=== PATIENT | male | born 1955 | race African-American/Black ===

== ENCOUNTER 2021-06-12 09:31 | Inpatient (IN) | payer MEDICARE, SELFPAY ==
[2021-06-12] VITALS (19 sets, daily range): BP systolic 86–179; BP diastolic 63–99; PULSE 72–101; RESP 12–24; TEMP 36–36.6; O2SAT 74–100; BMI 24.6
--- NOTE | ~2021-06-12 | XR_ITS ---
EXAMINATION: XR abdomen NG/feed tube insert INDICATION: Nasogastric tube placement TECHNIQUE: Portable AP KUB-NG at 1009 hours COMPARISON: None available FINDINGS: The nasogastric tube within the stomach. The bowel gas pattern is nonspecific. The visualiz ed lung bases are clear. Metallic densities are noted in the soft tissues of the left upper extremity . IMPRESSION: 1. Nasogastric tube in the stomach. Reviewed, dictated and finalized at location A. ORT SPECIALIST
--- NOTE | ~2021-06-12 | CT_ITS ---
EXAMINATION: CT brain wo con INDICATION: Headache COMPARISON: None TECHNIQUE: Standard unenhanced head CT. The dose-length product (DLP) was 605.33 mGy-cm. The mA was a djusted according to patient size. Iterative reconstruction technique was employed. FINDINGS: There is no acute intraparenchymal hemorrhage. No evidence of mass lesion. There is an area of hypoattenuation in the midbrain. Also seen are small lacunar infarcts of the bilateral basal gang eitan. There is mild periventricular and subcortical hypodensity probably related to small vessel ische gerard disease. There is mild prominence of the sulci and ventricles related to cerebral atrophy. Intrac ranial calcified cerebral atherosclerosis is noted. There are no extra-axial collections. There is no mass effect or midline shift. The orbits are unremarkable. There is mild mucosal thickening of the p aranasal sinuses. IMPRESSION: 1. Areas of low attenuation in the midbrain and bilateral basal ganglia, consistent with prior infarc tion. 2. Age related findings. Reviewed, dictated and finalized at location A. OVER IMPRESSION: 1. Areas of low attenuation in the midbrain and bilateral basal ganglia, consis tent with prior infarction. 2. Age related findings.
--- NOTE | ~2021-06-12 | CT_ITS ---
EXAMINATION: CT abdomen pelvis wo con DATE: 06/12/2021 10:56 INDICATION: Hypotension, GI bleed TECHNIQUE: Computed tomography (CT) of the abdomen and pelvis was performed without intravenous contr ast. The dose-length product (DLP) was 845.02 mGy-cm. Automated exposure control and iterative recons truction technique were employed. COMPARISON: None FINDINGS: Minimal dependent atelectasis is present in the lung bases. The heart size is normal. The e xamination is limited by absence of intravenous contrast. The nasogastric tube is in the stomach. The liver, spleen, pancreas, and adrenal glands are normal. Stones are present in the nondistended gallb ladder. Cysts of the kidneys measure up to 2.3 cm on the right. The urinary bladder is distended. The re are calcifications of the prostate. The appendix is normal. There is a partially imaged penile imp lant with reservoir in the right pelvis. No pathologically enlarged abdominal or pelvic lymph nodes a re identified. There is no free intraperitoneal gas or evidence of bowel obstruction. There is modera te osteoarthritis of the hips. Mild lumbar spondylosis is noted. IMPRESSION: 1. No CT correlate for the patient's symptoms. 2. Distended urinary bladder. 3. Cholelithiasis without evidence of cholecystitis. Reviewed, dictated and finalized at location A. R LOCKING SUPERVISOR
--- NOTE | ~2021-06-12 | XR_ITS ---
EXAMINATION: XR chest 1V portable DATE: 06/12/2021 15:20 INDICATION: Syncope. Vomiting. TECHNIQUE: A single frontal view of the chest was obtained. COMPARISON: CT abdomen and pelvis 06/12/2021 FINDINGS: There is mild scarring at the lung apices. No pleural effusion or pneumothorax. The heart s ize is normal. The nasogastric tube tip is in the stomach. IMPRESSION: 1. Mild scarring at the lung apices. Reviewed, dictated and finalized at location A. TRAFFIC SUPERVISOR
[2021-06-12] MEDS: SODIUM CHLORIDE 0.9% IV 1,000 ML 999 ML IV CONT ×3 (09:30→10:06)
--- NOTE | 2021-06-12 09:43 | PC.NURSE ---
Pt has 1 L NS infusing - initiated by EMS in route.
[2021-06-12] MEDS: PANTOPRAZOLE SODIUM IV 40 MG VIAL 80 MG IV PUSH (10:05)
[2021-06-12] MEDS: ONDANSETRON INJ 4 MG/2 ML VIAL IV PUSH (10:06)
[2021-06-12 10:07] LABS: Basophils Absolute Auto 0.1 K/mm3 (0.0-0.1); Basophils Percent Auto 0.4 % (0.2-1.2); Eosinophils Absolute Auto 0.1 K/mm3 (0-0.3); Eosinophils Percent Auto 0.4 % (0-4.4); Hematocrit 26.3 % (42.0-52.0); Hemoglobin 7.8 g/dL (14.0-18.0); Immature Granulocyte Absolute 0.08 K/mm3 (0.00-0.031); Immature Granulocyte Percent A 0.5 % (0-0.5); Lymphocytes Absolute Auto 2.39 K/mm3 (0.9-3.2); Lymphocytes Percent Auto 15.6 % (18.3-44.2); Mean Corpuscular HGB Conc 29.7 g/dl (32-36); Mean Corpuscular Hemoglobin 22.2 pg (26-34); Mean Corpuscular Volume 74.9 fl (80-100); Mean Platelet Volume 9.5 fl (7.4-10.4); Monocytes Absolute Auto 1.1 K/mm3 (0.1-0.6); Neutrophils Absolute Auto 11.7 K/mm3 (1.3-6.7); Neutrophils Percent Auto 76.1 % (45.5-73.1); Platelet Count Result 471 k/mm3 (150-375); Red Blood Count 3.51 M/mm3 (4.6-6.20); Red Cell Distribution Width 14.8 % (11.5-14.5); White Blood Count 15.3 K/mm3 (4.5-10.0)
[2021-06-12 10:17] LABS: Ammonia < 9 umol/L (9-30)
[2021-06-12 10:20] LABS: Lactic Acid Reflex 5.1 mmol/L (0.7-2.1)
[2021-06-12 10:21] LABS: Alveolar/Arterial O2 Gradient 19.8 mmHg; Base Excess ABG 18.1 mEq/l (+/-2.0); Fractional Inspired Oxygen 21 %; HCO3 ABG 44.8 mEq/l (22.0-26.0); Oxygen Saturation ABG 92.1 % (95.0-100.0); PCO2 ABG 58.9 mmHg (35.0-45.0); PO2 ABG 59.4 mmHg (80.0-100.0); PO2 FiO2 Ratio Arterial Blood 2.83 %; pH ABG 7.499 (7.350-7.450)
[2021-06-12 10:21] LABS: Prothrombin Time 12.9 Seconds (11.1-14.7)
[2021-06-12 10:22] LABS: Partial Thromboplastin Time 25.2 SECONDS (22.3-36.8)
[2021-06-12 10:22] LABS: Device ROOM AIR; Modified Allen's Test Pass; Site Drawn LEFT BRACHIAL
[2021-06-12 10:30] LABS: Beta-Hydroxybutyrate/Acetoacetate 0.28 mmol/L (0.02-0.27)
[2021-06-12 10:31] LABS: Alanine Aminotransferase 17 U/L (4-50); Albumin Level 4.4 g/dL (3.5-5.1); Alkaline Phosphatase 77 U/L (38-126); Aspartate Amino Transferase 24 U/L (17-59); Bilirubin,Total 0.9 mg/dL (0.2-1.3); Blood Urea Nitrogen 36 mg/dL (9-20); Calcium 9.8 mg/dL (8.4-10.2); Carbon Dioxide > 40 mmol/L (22-30); Chloride 70 mmol/L (98-107); Estimated CRCL calculation 31 ml/min; Estimated Glomerular Filt Rate 35; Glucose 548 mg/dL (65-110); Lipase 128 U/L (23-300); Magnesium 2.3 mg/dL (1.6-2.3); Potassium 2.7 mmol/L (3.4-5.0); Sodium 132 mmol/L (137-145)
[2021-06-12] MEDS: OCTREOTIDE ACETATE 50 MCG/ML VIAL IV PUSH (10:39)
[2021-06-12] MEDS: SODIUM CHLORIDE 0.9% IV 250 ML 30 ML IV CONT (10:39)
[2021-06-12] MEDS: TUBING, BLOOD SET 1 EACH XX (10:40)
--- NOTE | 2021-06-12 10:49 | ED.GIBLEED ---
HPI - GI Bleed General Chief complaint: GI Bleed Stated complaint: SYNCOPAL Time Seen by Provider: 06/12/21 09:38 Source: patient and EMS History of Present Illness HPI Narrative: Patient presents with GI bleed. Patient was was vomiting and altered at home family called EMS. EMS noted coffee-ground emesis and the patient was hypotensive. Related Data Home Medications Medication Instructions Recorded Confirmed aspirin 81 mg PO DAILY 06/12/21 06/12/21 atorvastatin 80 mg PO DAILY 06/12/21 06/12/21 ergocalciferol (vitamin D2) 50,000 unit PO WEEKLY 06/12/21 06/12/21 flash glucose sensor [FreeStyle 06/12/21 06/12/21 Jose J 14 Day Sensor] folic acid 1 mg PO DAILY 06/12/21 06/12/21 gabapentin 200 mg PO TID 06/12/21 06/12/21 insulin glargine 45 unit SUBCUT BID 06/12/21 06/12/21 insulin lispro 10 - 20 unit SUBCUT TIDWM 06/12/21 06/12/21 midodrine 2.5 mg PO TID 06/12/21 06/12/21 pantoprazole 40 mg PO QAM 06/12/21 06/12/21 promethazine 25 mg PO Q8H PRN 06/12/21 06/12/21 venlafaxine 150 mg PO DAILY 06/12/21 06/12/21 Allergies Allergy/AdvReac Type Severity Reaction Status Date / Time metformin Allergy Diarrhea Verified 06/12/21 10:07 pregabalin [From Lyrica] Allergy Swelling Verified 06/12/21 10:07 Review of Systems Review of Systems: ROS unobtainable: Yes unobtainable due to mental status [facility] Past Medical History Medical History (Updated 06/12/21 @ 14:31 by Dean Elias MD) Diabetes HTN (hypertension) Social History Social History (Updated 06/12/21 @ 10:53 by Dean Elias MD) Social History: unable to obtain Smoking status: Current every day smoker Tobacco type: cigarettes Substance use: former Substance use type: does not use Spiritual care concerns: No Exam Narrative: GENERAL: Moderate distress appears ill with active coffee-ground emesis HEAD: Normocephalic, atraumatic. EYES: PERRLA and EOMI. CHEST: Clear to auscultation. No respiratory distress. No wheezes rales or rhonchi HEART: Regular rate and rhythm. No murmur heard. ABDOMEN: Soft, nondistended EXTREMITIES: Normal range of motion. No edema. SKIN: Warm, dry, no rash. NEURO: Patient is alert there is not appear to be any focal deficits PSYCH: Normal mood and affect. Course Reevaluation(s) Reevaluation #1: Patient's clinical status is improving after initiation of blood products and NG. Signs also improving primary concern is for GI bleed as well as DKA. Date: 06/12/21 Time: 10:08 Reevaluation #2: Patient reports feeling improved vital signs also improved. Given lab abnormalities patient will be admitted for further management. Date: 06/12/21 Time: 11:39 Vital Signs Vital signs: Vital Signs Temperature 36.6 C 06/12/21 09:23 Pulse Rate 83 06/12/21 09:23 Respiratory Rate 24 H 06/12/21 09:23 Blood Pressure 86/63 L 06/12/21 09:23 Pulse Oximetry 96 06/12/21 09:23 Temperature 36.2 C L 06/12/21 11:29 Pulse Rate 76 06/12/21 12:02 Respiratory Rate 13 06/12/21 11:32 Blood Pressure 151/88 H 06/12/21 12:02 Pulse Oximetry 74 L 06/12/21 12:02 MDM - GI Bleed MDM Narrative Medical decision making narrative: Initial history and physical as above. Additional history obtained after initial resuscitation and in conversation with family. Patient has remote history of alcohol abuse and history of hepatitis C. Reports frequent admissions to the [facility] healthcare system for GI bleeds. Patient was discharged from [facility] system a few days ago was admitted for GI bleed and was initially doing well. However last night had some nausea and vomiting that look like stomach acid this morning family noted coffee-ground emesis and he appeared to be confused with low blood pressure that is why they called EMS. Due to patient's initial hypotension and coffee-ground emesis 1 unit of uncrossed matched blood was ordered. IVs were obtained and patient was placed on monitors. Patient is given an NG with approximately 1 L of co
--- NOTE | 2021-06-12 13:04 | PC.NURSE ---
This patient, Jonathon A Candi, was admitted to Intensive Care Unit-7. Patient/family oriented to hospital policies and general routines including ID bracelet, bed and alarms, visiting hours, pain management, procedures, bathroom and other care routines, personal items, smoking policy, room service/diet, and visiting hours. Information on how to activate the Rapid Response Team has been discussed. Patient/Family are encouraged to report perceived risks to care and to ask questions if they do not understand what they are told or what they should do.
[2021-06-12 13:05] LABS: Reflex Lactic Acid Yes or No Add Lactic
[2021-06-12 13:21] LABS: Glucose Point of Care 461 mg/dl (65-105)
[2021-06-12] MEDS: SODIUM CHLORIDE 0.9% IV 1,000 ML 125 ML IV CONT ×2 (13:30→21:20)
--- NOTE | 2021-06-12 13:34 | WPDCNINT ---
Assessment and Plan Assessment and plan (1) Sepsis: Code(s): A41.9 - Sepsis, unspecified organism Status: Acute Assessment and Plan: patient presented with hypotension, acute kidney injury, altered mental status, elevated WBC, lactic acidosis, GI bleed - Patient adequately fluid-resuscitated, blood pressures have improved - initial lactic acid was 5.1, repeat lactic acid 1.9. - patient was given 1 dose of ceftriaxone - (2) GI bleed: Qualifiers: GI bleed type/associated pathology: unspecified gastrointestinal hemorrhage type Qualified Code(s): K92.2 - Gastrointestinal hemorrhage, unspecified Code(s): K92.2 - Gastrointestinal hemorrhage, unspecified Status: Acute Assessment and Plan: coffee-ground emesis, according the ER physician once a placed an NG tube patient had approximately 1 L of coffee-ground material drain in the canister. - GI evaluation pending - continue Protonix and octreotide information - patient received 1 unit of packed RBC - unmatched - patient was recently and bowel injury [facility] from 05/29/2021 [facility] 06/01/21 for diabetes, hypotension, GI bleed - repeat H&H every 6 hours and transfuse as needed (3) Hypotension: Qualifiers: Hypotension type: unspecified hypotension type Qualified Code(s): I95.9 - Hypotension, unspecified Code(s): I95.9 - Hypotension, unspecified Status: Acute Assessment and Plan: hypotension - multifactorial, likely related to GI, hypovolemia, dehydration - patient has been adequately fluid-resuscitated, also received 1 unit of unmatched PRBC - blood pressures have been stable - continue to monitor (4) Hyperosmolar hyperglycemic state (HHS): Code(s): E11.00 - Type 2 diabetes mellitus with hyperosmolarity without nonketotic hyperglycemic-hyperosmolar coma (NKHHC); E11.65 - Type 2 diabetes mellitus with hyperglycemia Status: Acute Assessment and Plan: hyperglycemia with no metabolic acidosis, positive beta hydroxybutyrate - patient has not been taking his insulin at home per his - patient has received 3 L of IV fluids, - will give IV insulin and recheck blood sugars, continue high-dose sliding scale insulin Accu-Chek - patient may need to be started on insulin infusion if her blood sugars do not improve (5) Diabetes: Code(s): E11.9 - Type 2 diabetes mellitus without complications Status: Acute Assessment and Plan: patient has insulin-dependent diabetes, - patient may insulin infusion - continue to monitor blood sugars closely (6) Acute kidney injury: Code(s): N17.9 - Acute kidney failure, unspecified Status: Acute Assessment and Plan: acute kidney injury related to hypovolemia anemia, hypotension, sepsis - patient has been adequately fluid-resuscitated, will continue to monitor urine output, obtain urine lytes - creatinine does not improve will consult Nephrology (7) Cirrhosis: Code(s): K74.60 - Unspecified cirrhosis of liver Status: Acute Assessment and Plan: current patient's his doctors keep following his liver enzyme ammonia level was < 9 (8) History of hepatitis C: Code(s): Z86.19 - Personal history of other infectious and parasitic diseases Status: Acute Assessment and Plan: patient has been treated with medications for hepatitis-C, follows GI doctors at [facility] (9) DVT prophylaxis: Code(s): Z29.9 - Encounter for prophylactic measures, unspecified Status: Acute Assessment and Plan: SCDs, no chemoprophylaxis given GI bleed. Additional Plan discussed with and updated with patient's condition and plan of care. She was a good resource for obtaining patient's medical history. did let her know that we will be treating his elevated blood sugars, anemia and GI bleed. She is aware that the GI doctors be seeing him and performing endosc
[2021-06-12 13:55] LABS: Lactic Acid 1.9 mmol/L (0.7-2.1)
[2021-06-12 14:01] LABS: Basophils Percent Auto 0.3 % (0.2-1.2); Hematocrit 26.5 % (42.0-52.0); Hemoglobin 8.1 g/dL (14.0-18.0); Immature Granulocyte Absolute 0.09 K/mm3 (0.00-0.031); Immature Granulocyte Percent A 0.6 % (0-0.5); Lymphocytes Absolute Auto 0.74 K/mm3 (0.9-3.2); Lymphocytes Percent Auto 4.7 % (18.3-44.2); Mean Corpuscular HGB Conc 30.6 g/dl (32-36); Mean Corpuscular Hemoglobin 23.5 pg (26-34); Mean Platelet Volume 9.6 fl (7.4-10.4); Monocytes Absolute Auto 0.7 K/mm3 (0.1-0.6); Monocytes Percent Auto 4.5 % (2.6-8.5); Neutrophils Percent Auto 89.9 % (45.5-73.1); Platelet Count Result 329 k/mm3 (150-375); Red Blood Count 3.44 M/mm3 (4.6-6.20); Red Cell Distribution Width 15.7 % (11.5-14.5); White Blood Count 15.6 K/mm3 (4.5-10.0)
[2021-06-12 14:07] LABS: Creatine Kinase 41 U/L (55-170); Lipase 83 U/L (23-300); Magnesium 2.1 mg/dL (1.6-2.3); Phosphorus 4.1 mg/dL (2.5-4.5)
[2021-06-12 14:12] LABS: Partial Thromboplastin Time 23.2 SECONDS (22.3-36.8); Prothrombin Time 13.2 Seconds (11.1-14.7)
[2021-06-12 14:15] LABS: Hemoglobin A1C 8.1 % (<5.7)
[2021-06-12] MEDS: INSULIN HUMAN REGULAR (*BKC) 100 UNITS/ML IV PUSH (14:39)
--- NOTE | 2021-06-12 15:04 | ECG_ITS ---
Measurements Intervals [place] Rate: 96 P: 16 MT: 197 QRS: -42 QRSD: 94 T: 33 QT: 400 QTc: 507 Interpretive Statements SINUS RHYTHM LEFT AXIS DEVIATION BORDERLINE R WAVE PROGRESSION, ANTERIOR LEADS BORDERLINE ST-T WAVE ABNORMALITY- HIGH LATERAL LEADS BASELINE ARTIFACT- I, II, III, AVR, AVL, AVF, V1-V6 BORDERLINE ECG Electronically Signed On 06-13-2021 8:44:48 MEDICAL GRADE SHOEMAKER by Aric Lee D.O.
--- NOTE | 2021-06-12 15:45 | PM.IMHP ---
H&P: HPI History of Present Illness Date/Time: 06/12/21 15:45 Chief Complaint: Vomiting blood and loss of consciousness. Narrative: This is a 66-year-old male smoker with hypertension, insulin-dependent diabetes, cirrhosis, hepatitis-C, and GERD who presented to the emergency department earlier today via EMS from home for evaluation of vomiting blood and loss of consciousness. The patient is confused and not the greatest historian and as such some of the following is obtained via a review of his electronic medical records as well as discussions with his . The patient was recently hospitalized at [facility] between 05/29/2021 and 06/01/2021 for an upper GI bleed. According to his , upper endoscopy showed evidence of gastritis and esophagitis. His appetite has been poor since discharge with frequent complaints of burning in his upper abdomen and lower chest. This morning the patient tells me that he was having severe abdominal pain that he has a difficult time describing and shortly thereafter he began vomiting what has been described as coffee-ground emesis. It is my understanding that he was also hypotensive at home and lost consciousness for a brief period of time. Blood pressure was approximately 80/60 on arrival to the emergency department and given ongoing hematemesis he was transfused and on matched unit of packed red blood cells and he was aggressively hydrated with improvement in his blood pressures. Significant labs on arrival include a hemoglobin of 7.8, creatinine of 2.3, lactic acid of 5.1, glucose of 548, and a potassium of 2.7. An NG tube was inserted and he has been started on Protonix and octreotide drips. He still has intermittent abdominal pain but is feeling somewhat better. He denies fever, chills, sweats, chest pain, shortness of breath, cold and flu symptoms, dysuria, diarrhea. Review of Systems Review of Systems: Twelve systems were reviewed. He has been vaccinated for COVID. No sick contacts. He has not taken his medication for couple of days because he has not been feeling well. He denies blurry vision, polydipsia, and polyuria. Except as documented, all other systems were reviewed and are negative. [facility] Past Medical History Medical History (Updated 06/12/21 @ 23:43 by Cristina Chong PA-C) Arthritis Benign prostatic hyperplasia Chronic kidney disease Cirrhosis Depression Diabetic peripheral neuropathy Dyslipidemia Gastroesophageal reflux disease Hepatitis C Insulin dependent type 2 diabetes mellitus Tobacco abuse disorder Social History Social History (Updated 06/12/21 @ 14:52 by Cristina Chong PA-C) Social History: Surrogate decision maker: Mahnaz Christopher, spouse. Code status: Full code. Smoking status: Current every day smoker Tobacco type: cigarettes Substance use: former Substance use type: does not use Additional living arrangements comments: The patient lives with his in [place]. Additional occupation/education comments: Retired. Meds Home Medications and Allergies Home Medications Medication Instructions Recorded Confirmed Type aspirin 81 mg PO DAILY 06/12/21 06/12/21 History atorvastatin 80 mg PO DAILY 06/12/21 06/12/21 History ergocalciferol (vitamin D2) 50,000 unit PO WEEKLY 06/12/21 06/12/21 History flash glucose sensor [FreeStyle 06/12/21 06/12/21 History Jose J 14 Day Sensor] folic acid 1 mg PO DAILY 06/12/21 06/12/21 History gabapentin 200 mg PO TID 06/12/21 06/12/21 History insulin glargine 45 unit SUBCUT BID 06/12/21 06/12/21 History insulin lispro 10 - 20 unit SUBCUT TIDWM 06/12/21 06/12/21 History midodrine 2.5 mg PO TID 06/12/21 06/12/21 History pantoprazole 40 mg PO QAM 06/12/21 06/12/21 History promethazine 25 mg PO Q8H PRN 06/12/21 06/12/21 History venlafaxine 150 mg PO DAILY 06/12/21 06/12/21 History Allergies Allergy/AdvReac Type Severity Reaction Status Date / Time metformin Allergy Diarrhea Verified 06/12/21 10:07 pre
[2021-06-12] MEDS: MORPHINE SULFATE (*CRX) 2 MG/ML INJ IV PUSH ×2 (15:58→19:33)
[2021-06-12 16:10] LABS: Hematocrit 25.7 % (42.0-52.0); Hemoglobin 7.9 g/dL (14.0-18.0)
[2021-06-12 16:28] LABS: Blood Urea Nitrogen 36 mg/dL (9-20); Calcium 8.7 mg/dL (8.4-10.2); Carbon Dioxide > 40 mmol/L (22-30); Chloride 81 mmol/L (98-107); Estimated CRCL calculation 36 ml/min; Estimated Glomerular Filt Rate 41; Glucose 384 mg/dL (65-110); Potassium 3.2 mmol/L (3.4-5.0); Sodium 132 mmol/L (137-145)
[2021-06-12 16:53] LABS: Thyroid Stimulating Hormone Reflex 0.089 uIU/mL (0.465-4.68)
[2021-06-12 17:27] LABS: Iron 291 ug/dL (49-181)
[2021-06-12 17:36] LABS: Percent Iron Saturation 88 % (20-50)
[2021-06-12 17:41] LABS: Glucose Point of Care 344 mg/dl (65-105)
[2021-06-12] MEDS: INSULIN ASPART (*BKC) 100 UNITS/ML SUB-Q (17:52)
[2021-06-12 18:03] LABS: Ferritin 9.74 ng/mL (11.1-264)
[2021-06-12 18:35] LABS: Folic Acid 6.3 ng/mL (2.76->20)
[2021-06-12 18:35] LABS: Glucose Point of Care 300 mg/dl (65-105)
[2021-06-12 18:45] LABS: Add Urine Microscopic? YES; Appearance Urine Clear (Clear); Bilirubin Urine Negative (Negative); Blood Urine Negative (Negative); Color Urine Yellow (Yellow); Glucose Urine UA 3+ mg/dL (Negative); Ketones Urine Negative (Negative); Leukocyte Esterase Ur Negative LEU/UL (Negative); Nitrate Urine Negative (Negative); Protein Urine 1+ mg/dL (Negative); Specific Grav Ur 1.015 (1.001-1.035); Urobilinogen Urine Negative mg/dL (<2.0); WBC Urine 0-3 /hpf
[2021-06-12 18:49] LABS: Creatinine Urine 90.3 mg/dL
[2021-06-12 19:06] LABS: Eosinophil Urine None Seen % (None Seen)
[2021-06-12 19:09] LABS: Potassium Urine Random 23.4 meq/L; Sodium Urine Random 50 meq/L
[2021-06-12 23:23] LABS: Hematocrit 24.2 % (42.0-52.0); Hemoglobin 7.6 g/dL (14.0-18.0)
[2021-06-13] VITALS (20 sets, daily range): BP systolic 81–164; BP diastolic 65–94; PULSE 62–96; RESP 14–23; TEMP 36.3–37; O2SAT 90–100; BMI 25.2
[2021-06-13 00:03] LABS: Glucose Point of Care 55 mg/dl (65-105)
[2021-06-13 00:09] LABS: Glucose Point of Care 68 mg/dl (65-105)
[2021-06-13] MEDS: DEXTROSE 50% 25 GM/50 ML SYRINGE IV PUSH (00:11)
--- NOTE | 2021-06-13 00:34 | PC.NURSE ---
0015 accuchek 68. protocol followed and D50 1/2 amp given as ordered. patient remains alert and oriented
[2021-06-13 01:02] LABS: Glucose Point of Care 115 mg/dl (65-105)
[2021-06-13] MEDS: SODIUM CHLORIDE 0.9% IV 1,000 ML 125 ML IV CONT ×3 (05:26→21:51)
[2021-06-13 06:05] LABS: Glucose Point of Care 180 mg/dl (65-105)
[2021-06-13 06:44] LABS: Free T4 Free Thyroxine Reflex 1.27 ng/dL (0.78-2.19)
[2021-06-13 07:35] LABS: Total Triiodothyronine (T3) 1.02 NG/ML (0.97-1.69)
[2021-06-13 07:53] LABS: Basophils Absolute Auto 0.1 K/mm3 (0.0-0.1); Basophils Percent Auto 0.5 % (0.2-1.2); Eosinophils Absolute Auto 0.2 K/mm3 (0-0.3); Hematocrit 25.4 % (42.0-52.0); Hemoglobin 7.6 g/dL (14.0-18.0); Immature Granulocyte Absolute 0.07 K/mm3 (0.00-0.031); Immature Granulocyte Percent A 0.5 % (0-0.5); Lymphocytes Absolute Auto 2.11 K/mm3 (0.9-3.2); Lymphocytes Percent Auto 14.1 % (18.3-44.2); Mean Corpuscular HGB Conc 29.9 g/dl (32-36); Mean Corpuscular Hemoglobin 23.3 pg (26-34); Mean Corpuscular Volume 77.9 fl (80-100); Neutrophils Absolute Auto 11.5 K/mm3 (1.3-6.7); Neutrophils Percent Auto 76.9 % (45.5-73.1); Platelet Count Result 308 k/mm3 (150-375); Red Blood Count 3.26 M/mm3 (4.6-6.20); Red Cell Distribution Width 15.3 % (11.5-14.5)
[2021-06-13 08:01] LABS: Lactic Acid Reflex 2.9 mmol/L (0.7-2.1)
[2021-06-13 08:06] LABS: Partial Thromboplastin Time 28.1 SECONDS (22.3-36.8)
[2021-06-13 08:14] LABS: Alanine Aminotransferase 14 U/L (4-50); Albumin Level 3.7 g/dL (3.5-5.1); Alkaline Phosphatase 68 U/L (38-126); Aspartate Amino Transferase 22 U/L (17-59); Bilirubin,Total 1.5 mg/dL (0.2-1.3); Blood Urea Nitrogen 27 mg/dL (9-20); Calcium 8.5 mg/dL (8.4-10.2); Carbon Dioxide > 40 mmol/L (22-30); Chloride 84 mmol/L (98-107); Estimated CRCL calculation 34 ml/min; Estimated Glomerular Filt Rate 38; Glucose 237 mg/dL (65-110); Magnesium 2.2 mg/dL (1.6-2.3); Phosphorus 3.2 mg/dL (2.5-4.5); Potassium 2.8 mmol/L (3.4-5.0); Sodium 135 mmol/L (137-145)
[2021-06-13] MEDS: MORPHINE SULFATE (*CRX) 2 MG/ML INJ IV PUSH (08:14)
[2021-06-13] MEDS: POTASSIUM CHLORIDE 20 MEQ PACKET (FOR LIQUID) 40 MEQ FEED TUBE (08:58)
--- NOTE | 2021-06-13 09:15 | WPDINTPN ---
Progress Note: A&P Assessment and Plan (1) Sepsis: Code(s): A41.9 - Sepsis, unspecified organism Status: Acute Assessment and Plan: patient presented with hypotension, acute kidney injury, altered mental status, elevated WBC, lactic acidosis, GI bleed - Patient adequately fluid-resuscitated, blood pressures have improved - lactic acid level has improved -blood culture sent -blood pressure is adequate Continue Rocephin (2) GI bleed: Qualifiers: GI bleed type/associated pathology: unspecified gastrointestinal hemorrhage type Qualified Code(s): K92.2 - Gastrointestinal hemorrhage, unspecified Code(s): K92.2 - Gastrointestinal hemorrhage, unspecified Status: Acute Assessment and Plan: coffee-ground emesis, according the ER physician once a placed an NG tube patient had approximately 1 L of coffee-ground material drain in the canister. - GI consulted and plan for EGD today - continue Protonix and octreotide infusion until the - patient received 1 unit of packed RBC - unmatched -serial hemoglobin monitoring -NPO for now (3) Hypotension: Qualifiers: Hypotension type: unspecified hypotension type Qualified Code(s): I95.9 - Hypotension, unspecified Code(s): I95.9 - Hypotension, unspecified Status: Acute Assessment and Plan: hypotension - multifactorial, likely related to GI, hypovolemia, dehydration - patient has been adequately fluid-resuscitated, also received 1 unit of unmatched PRBC - blood pressures have improved - continue to monitor (4) Hyperosmolar hyperglycemic state (HHS): Code(s): E11.00 - Type 2 diabetes mellitus with hyperosmolarity without nonketotic hyperglycemic-hyperosmolar coma (NKHHC); E11.65 - Type 2 diabetes mellitus with hyperglycemia Status: Acute Assessment and Plan: hyperglycemia with no metabolic acidosis, positive beta hydroxybutyrate - patient has not been taking his insulin at home per his - patient was given IV fluid bolus and IV insulin -blood sugars have improved now and uncontrolled drain (5) Diabetes: Code(s): E11.9 - Type 2 diabetes mellitus without complications Status: Acute Assessment and Plan: patient has insulin-dependent diabetes, -on subcutaneous insulin - continue to monitor blood sugars closely (6) Acute kidney injury: Code(s): N17.9 - Acute kidney failure, unspecified Status: Acute Assessment and Plan: acute kidney injury related to hypovolemia anemia, hypotension, sepsis -baseline creatinine unknown - patient has been adequately fluid-resuscitated, will continue to monitor urine output, obtain urine lytes - creatinine does not improve will consult Nephrology (7) Cirrhosis: Code(s): K74.60 - Unspecified cirrhosis of liver Status: Acute Assessment and Plan: current patient's his doctors keep following his liver enzyme ammonia level was < 9 (8) History of hepatitis C: Code(s): Z86.19 - Personal history of other infectious and parasitic diseases Status: Acute Assessment and Plan: patient has been treated with medications for hepatitis-C, follows GI doctors at [facility] (9) DVT prophylaxis: Code(s): Z29.9 - Encounter for prophylactic measures, unspecified Status: Acute Assessment and Plan: SCDs, no chemoprophylaxis given GI bleed. (10) Electrolyte abnormality: Code(s): E87.8 - Other disorders of electrolyte and fluid balance, not elsewhere classified Status: Acute Assessment and Plan: Replace low potassium Additional Plan Code status: Full code Critical care time spent: 30 minutes This dictation may have been done utilizing a voice recognition system. Attempts have been made to correct errors. However, there may be uncorrected grammatical, spelling, and recognition errors present. Due to a high probability of clinically
[2021-06-13 09:53] LABS: Glucose Point of Care 304 mg/dl (65-105)
[2021-06-13] MEDS: INSULIN ASPART (*BKC) 100 UNITS/ML SUB-Q ×3 (09:58→17:13)
[2021-06-13 10:40] LABS: Hematocrit 24.6 % (42.0-52.0); Hemoglobin 7.5 g/dL (14.0-18.0)
[2021-06-13 10:49] LABS: Reflex Lactic Acid Yes or No Add Lactic
--- NOTE | 2021-06-13 10:59 | WPDANESEPPF ---
Anes - Initial Pre Proc Eval Procedure: Operation Date: 06/13/21 14:00 Proposed Procedures p Esophagogastroduodenoscopy - Raul Jordan MD Date/Time: 06/13/21 10:59 Surgeon: Danielle Sierra MD Pre Op Diagnosis: GI bleed Patient Data Age: 66 Gender: M Height: 1.83 m Weight: 84.3 kg Last Vital Signs Temp 36.9 C 06/13/21 08:00 Pulse 87 06/13/21 10:00 Resp 18 06/13/21 10:00 BP 147/82 H 06/13/21 10:00 Pulse Ox 93 06/13/21 10:00 Allergies Allergy/AdvReac Type Severity Reaction Status Date / Time metformin Allergy Diarrhea Verified 06/12/21 10:07 pregabalin [From Lyrica] Allergy Swelling Verified 06/12/21 10:07 Home Medications Medication Instructions Recorded Confirmed Type aspirin 81 mg PO DAILY 06/12/21 06/12/21 History atorvastatin 80 mg PO DAILY 06/12/21 06/12/21 History ergocalciferol (vitamin D2) 50,000 unit PO WEEKLY 06/12/21 06/12/21 History flash glucose sensor [FreeStyle 06/12/21 06/12/21 History Jose J 14 Day Sensor] folic acid 1 mg PO DAILY 06/12/21 06/12/21 History gabapentin 200 mg PO TID 06/12/21 06/12/21 History insulin glargine 45 unit SUBCUT BID 06/12/21 06/12/21 History insulin lispro 10 - 20 unit SUBCUT TIDWM 06/12/21 06/12/21 History midodrine 2.5 mg PO TID 06/12/21 06/12/21 History pantoprazole 40 mg PO QAM 06/12/21 06/12/21 History promethazine 25 mg PO Q8H PRN 06/12/21 06/12/21 History venlafaxine 150 mg PO DAILY 06/12/21 06/12/21 History Laboratory Tests 06/12/21 06/12/21 06/12/21 10:01 13:19 13:37 WBC RBC Hgb Hct MCV MCH MCHC RDW Plt Count MPV Immature Gran % (Auto) Neut % (Auto) Lymph % (Auto) [place] % (Auto) Eos % (Auto) Baso % (Auto) Lymph # (Auto) [place] # (Auto) Eos # (Auto) Baso # (Auto) Abs Immat Gran (auto) Absolute Neuts (auto) Absolute Nucleated RBC Nucleated RBC % PT INR APTT Sodium Potassium Chloride Carbon Dioxide Anion Gap BUN Creatinine Estim Creat Clear Calc Estimated GFR Glucose POC Capillary Glucose 461 mg/dl H mg/dl (65-105) Hemoglobin A1c 8.1 % H % (<5.7) Lactic Acid Calcium Phosphorus Magnesium Iron TIBC % Saturation Ferritin Total Bilirubin AST ALT Alkaline Phosphatase Total Creatine Kinase Total Protein Albumin Lipase Vitamin B12 Folate TSH (Reflex) Free T4 Total T3 Random Cortisol Urine Color Urine Appearance Urine pH Ur Specific [place] Urine Protein Urine Glucose (UA) Urine Ketones Ur Blood (Man) Urine Nitrate Urine Bilirubin Urine Urobilinogen Leukocyte Esterase Rfl Urine WBC Urine Eosinophils Ur Random Creatinine Ur Random Sodium Ur Random Potassium Ur Random Chloride U Random Chloride/Creat Urine Creatinine Crossmatch See Detail 06/12/21 06/12/21 06/12/21 13:37 13:37 13:37 WBC 15.6 K/mm3 H K/mm3 (4.5-10.0) RBC 3.44 M/mm3 L M/mm3 (4.6-6.20) Hgb 8.1 g/dL L g/dL (14.0-18.0) Hct 26.5 % L % (42.0-52.0) MCV 77.0 fl L fl (80-100) MCH 23.5 pg L D pg
--- NOTE | 2021-06-13 11:20 | WPDGICN ---
Assessment and Plan Assessment and plan (1) Hematemesis: Code(s): K92.0 - Hematemesis Status: Acute Assessment and Plan: will assess with egd- ddx varices, esophagitis, ulcer, phg, etc continue with octreotide and protonix drip for now will try to get recent scope reports (2) UGIB (upper gastrointestinal bleed): Code(s): K92.2 - Gastrointestinal hemorrhage, unspecified Status: Acute Assessment and Plan: no more bleeding by ngt continue monitoring and egd now already on ppi (3) Acute on chronic kidney failure: Code(s): N17.9 - Acute kidney failure, unspecified; N18.9 - Chronic kidney disease, unspecified Status: Acute Assessment and Plan: on fluids, monitor renal function (4) Cirrhosis: Code(s): K74.60 - Unspecified cirrhosis of liver Status: Acute Assessment and Plan: HCV was treated and eradicated, he is seeing radiography technician at [facility] (5) Hyperosmolar hyperglycemic state (HHS): Code(s): E11.00 - Type 2 diabetes mellitus with hyperosmolarity without nonketotic hyperglycemic-hyperosmolar coma (NKHHC); E11.65 - Type 2 diabetes mellitus with hyperglycemia Status: Acute Assessment and Plan: he came with confusion, syncope, hypotension and abnormal glucose with metabolic decompensation has not been using insulin as instructed by icu team (6) Dehydration: Code(s): E86.0 - Dehydration Status: Acute (7) Hypotension: Qualifiers: Hypotension type: unspecified hypotension type Qualified Code(s): I95.9 - Hypotension, unspecified Code(s): I95.9 - Hypotension, unspecified Status: Acute Assessment and Plan: treated and now BP improved (8) Acute kidney injury: Code(s): N17.9 - Acute kidney failure, unspecified Status: Acute (9) History of hepatitis C: Code(s): Z86.19 - Personal history of other infectious and parasitic diseases Status: Acute Assessment and Plan: treated successfully will get HCV RNA to confirm eradication denies alcohol abuse (used to drink but years ago per ) GI Consult Note Consult date/time: 06/13/21 11:20 Reason for consult: GIB, hematemesis HPI: Jonathon A Candi is a 66 year old male with history of hypertension, smoker, insulin-dependent diabetes, cirrhosis, hepatitis-C treated about 2 years ago at [facility] and successfully eradicated per family (also seeing hepatology once a year with imaging of liver for benign nodule in liver ). He was recently hospitalized at [facility] between 05/29/2021 and 06/01/2021 for GI bleed, is at bedside- she says that EGD showed evidence of gastritis and esophagitis, also had colonoscopy (no records). After discharge he has been doing poorly, with burning in his upper abdomen and lower chest, decrease appetite and not compliant with his insulin. He came to ER yesterday [facility] with new onset of hematemesis with coffee-ground emesis, also had syncope and was found to be hypotensive in the ER, NGT was placed and removed ~ 1 liter of gastric content. He received 3 L IV fluids with one unit of unmatched packed RBC, with improvement in his blood pressures. hemoglobin of 7.8, WBC count of 15.3, platelets of 471. INR 1.0. sodium of 132, potassium of 2.7, CO2 > 40, BUN 46, creatinine 2.3. Blood sugar of 548, lactic acid of 5.1. ammonia < 9. Elevated beta hydroxybutyrate. He also had CT head areas of low attenuation in the mid brain in bilateral basal ganglia consistent with prior infarction, age related changes. CT abdomen and pelvis reviewed, no CT findings to correlate for patient's symptoms, distended urinary bladder, cholelithiasis without evidence of cholecystitis. He denies drinking alcohol. BP better now, no more coffee ground by NGT. Review of Systems Constitutional: Constitutional: Reports weakness Eyes: Eyes: Reports no additional eye complaints ENT: Reports Normal hearing present Cardiovascular:
--- NOTE | 2021-06-13 11:29 | PM.IMPN ---
Progress Note: A&P Assessment and Plan (1) Sepsis: Code(s): A41.9 - Sepsis, unspecified organism Status: Acute Assessment and Plan: Patient presented with hypotension, renal insufficiency, altered mental status, elevated WBC, and lactic acidosis. Probably related to the HoTN from the GI bleed. Patient adequately fluid-resuscitated and his overall condition has improved. lactic was 5.1 before dropping to 1.9; higher today at 2.9 but clinically appears improved. BP stable now. BCx NGT. Rocephin continued. Follow up on EGD results. Discussed with [place] kura [place] ma[place]. (2) GI bleed: Qualifiers: GI bleed type/associated pathology: unspecified gastrointestinal hemorrhage type Qualified Code(s): K92.2 - Gastrointestinal hemorrhage, unspecified Code(s): K92.2 - Gastrointestinal hemorrhage, unspecified Status: Acute Assessment and Plan: Patient with coffee-ground emesis and he had approximately 1 L of coffee-ground material removed. Appears clear now. GI consulted and plan for EGD today. Continue Protonix and octreotide infusion until the results of the EGD are known. Patient received 1 unit of unmatched packed RBC. Hgb 7.8 on admission but not much changed since admission and currently at 7.5. Follow closely. (3) Hypotension: Qualifiers: Hypotension type: unspecified hypotension type Qualified Code(s): I95.9 - Hypotension, unspecified Code(s): I95.9 - Hypotension, unspecified Status: Acute Assessment and Plan: Patient was HoTN on admission felt to be multifactorial related to GI bleed with hypovolemia and dehydration. Patient has been adequately fluid-resuscitated and received 1 unit of unmatched PRBC. BP better. Follow closely. (4) Diabetes: Code(s): E11.9 - Type 2 diabetes mellitus without complications Status: Acute Assessment and Plan: The patient's blood glucose was reviewed on 06/13 Glucose remains poorly well controlled with glucose 55 overnight but now 304. Patient takes Lantus twice a day and mealtime insulin at home but has been noncompliant.Continue AccuCheks covering with sliding scale. Hypoglycemia protocol available as needed. Continue to monitor blood sugars closely (5) Hyperosmolar hyperglycemic state (HHS): Code(s): E11.00 - Type 2 diabetes mellitus with hyperosmolarity without nonketotic hyperglycemic-hyperosmolar coma (NKHHC); E11.65 - Type 2 diabetes mellitus with hyperglycemia Status: Acute Assessment and Plan: Patient with hyperglycemia with no metabolic acidosis and slightly positive beta hydroxybutyrate. Consider HHS. Gigi has been noncompliant at home with his insulin regiment. Mental status better. As above (6) Acute kidney injury: Code(s): N17.9 - Acute kidney failure, unspecified Status: Acute Assessment and Plan: Creatinine 2.3 on admission. Unclear if he has acute, acute on chronic or chronic kidney disease. Creatinine has not improved significantly despite adequate fluid resuscitation. Acute kidney injury could be related to hypovolemia, anemia and hypotension from the GI bleed. Continue to monitor urine output. Will request old records to determine baseline. (7) Cirrhosis: Code(s): K74.60 - Unspecified cirrhosis of liver Status: Acute Assessment and Plan: Patient with cirrhosis listed as a past medical history although CT of the abdomen done here shows a normal appearing liver. No ascites noted. Ammonia level was less than 9. PT and PTT are normal. LFTs normal except for a mildly elevated bilirubin today at 1.5. Unclear if patient has cirrhosis with these findings. (8) History of hepatitis C: Code(s): Z86.19 - Personal history of other infectious and parasitic diseases Status: Acute Assessment and Plan: Patient follows with GI doctors at [facility]. Patient states he has been treated for hepatitis-C in t
[2021-06-13 12:27] LABS: Glucose Point of Care 295 mg/dl (65-105)
[2021-06-13] MEDS: LACTATED RINGERS 1,000 ML 150 ML IV CONT (12:46)
--- NOTE | 2021-06-13 12:53 | SUR.PREOP ---
POC glucose performed prior to pt being transported from ICU. Result of 295 at 1224.
[2021-06-13 12:58] LABS: Ovalocytes 1+ (NORMAL); Platelet Estimate Adequate (Adequate)
[2021-06-13 12:59] LABS: Schistocytes 1+ (NORMAL)
--- NOTE | 2021-06-13 13:34 | SUR.OPER ---
NGT REMOVED BY DR PISANO
[2021-06-13 14:12] LABS: Glucose Point of Care 202 mg/dl (65-105)
[2021-06-13 14:53] LABS: Lactic Acid 2.9 mmol/L (0.7-2.1)
[2021-06-13] MEDS: ERGOCALCIFEROL 50,000 UNIT CAPSULE 50000 UNITS PO (15:18)
[2021-06-13] MEDS: GABAPENTIN 100 MG CAPSULE 200 MG PO ×2 (15:19→21:51)
[2021-06-13] MEDS: VENLAFAXINE HCL XR 75 MG CAP.ER.24H 150 MG PO (15:19)
[2021-06-13] MEDS: MIDODRINE HCL 2.5 MG TABLET PO (15:19)
[2021-06-13] MEDS: FOLIC ACID 1 MG TABLET PO (15:19)
[2021-06-13] MEDS: ATORVASTATIN 40 MG TABLET 80 MG PO (15:19)
[2021-06-13] MEDS: SUCRALFATE SUSP 100 MG/ML 10 ML UDC 1000 MG PO ×2 (15:20→21:51)
[2021-06-13] MEDS: ONDANSETRON INJ 4 MG/2 ML VIAL IV PUSH (16:30)
[2021-06-13 16:51] LABS: Hematocrit 23.4 % (42.0-52.0); Hemoglobin 7.1 g/dL (14.0-18.0)
[2021-06-13 17:16] LABS: Glucose Point of Care 177 mg/dl (65-105)
[2021-06-13 21:46] LABS: Glucose Point of Care 120 mg/dl (65-105)
[2021-06-13] MEDS: PANTOPRAZOLE SODIUM IV 40 MG VIAL IV PUSH (21:54)
[2021-06-13 21:59] LABS: Hematocrit 22.6 % (42.0-52.0)
[2021-06-13 22:08] LABS: Hemoglobin 6.9 g/dL (14.0-18.0)
[2021-06-14] VITALS (17 sets, daily range): BP systolic 126–172; BP diastolic 83–97; PULSE 60–82; RESP 11–18; TEMP 36.1–37; O2SAT 95–100
[2021-06-14 04:51] LABS: Hematocrit 23.1 % (42.0-52.0); Mean Corpuscular HGB Conc 29.9 g/dl (32-36); Mean Corpuscular Hemoglobin 23.2 pg (26-34); Mean Corpuscular Volume 77.5 fl (80-100); Mean Platelet Volume 9.3 fl (7.4-10.4); Platelet Count Result 270 k/mm3 (150-375); Red Blood Count 2.98 M/mm3 (4.6-6.20); Red Cell Distribution Width 15.7 % (11.5-14.5); White Blood Count 13.5 K/mm3 (4.5-10.0)
[2021-06-14 05:02] LABS: Hemoglobin 6.9 g/dL (14.0-18.0)
[2021-06-14 05:04] LABS: Alanine Aminotransferase 12 U/L (4-50); Albumin Level 3.7 g/dL (3.5-5.1); Alkaline Phosphatase 65 U/L (38-126); Anion Gap 9 mmol/L (8-16); Aspartate Amino Transferase 23 U/L (17-59); Blood Urea Nitrogen 21 mg/dL (9-20); Calcium 8.1 mg/dL (8.4-10.2); Carbon Dioxide 33 mmol/L (22-30); Chloride 90 mmol/L (98-107); Estimated CRCL calculation 44 ml/min; Estimated Glomerular Filt Rate 53; Glucose 195 mg/dL (65-110); Magnesium 1.8 mg/dL (1.6-2.3); Phosphorus 2.2 mg/dL (2.5-4.5); Potassium 3.2 mmol/L (3.4-5.0); Sodium 132 mmol/L (137-145)
[2021-06-14 05:37] LABS: Lactic Acid Reflex 0.8 mmol/L (0.7-2.1)
[2021-06-14] MEDS: SODIUM CHLORIDE 0.9% IV 1,000 ML 125 ML IV CONT (05:56)
[2021-06-14] MEDS: SUCRALFATE SUSP 100 MG/ML 10 ML UDC 1000 MG PO ×4 (05:57→21:09)
[2021-06-14 06:14] LABS: Glucose Point of Care 226 mg/dl (65-105)
[2021-06-14] MEDS: INSULIN ASPART (*BKC) 100 UNITS/ML SUB-Q ×2 (06:16→09:07)
[2021-06-14 08:35] LABS: Glucose Point of Care 235 mg/dl (65-105)
[2021-06-14] MEDS: POTASSIUM/PHOSPHORUS/SODIUM 1.5 GM PACKET 1 PACKET PO (09:10)
[2021-06-14] MEDS: VENLAFAXINE HCL XR 75 MG CAP.ER.24H 150 MG PO (09:11)
[2021-06-14] MEDS: FOLIC ACID 1 MG TABLET PO (09:12)
[2021-06-14] MEDS: PANTOPRAZOLE SODIUM IV 40 MG VIAL IV PUSH ×2 (09:12→21:09)
[2021-06-14] MEDS: GABAPENTIN 100 MG CAPSULE 200 MG PO ×3 (09:12→17:47)
[2021-06-14] MEDS: INSULIN GLARGINE (*BKC) 100 UNITS/ML 15 UNITS SUB-Q (09:16)
[2021-06-14] MEDS: POTASSIUM CHLORIDE 20 MEQ TABLET 40 MEQ PO (09:20)
[2021-06-14] MEDS: SODIUM CHLORIDE 0.9% IV 250 ML 30 ML IV CONT (09:26)
[2021-06-14] MEDS: ATORVASTATIN 40 MG TABLET 80 MG PO (09:35)
--- NOTE | 2021-06-14 10:12 | PM.IMPN ---
Progress Note: A&P Assessment and Plan (1) Sepsis: Code(s): A41.9 - Sepsis, unspecified organism Status: Acute Assessment and Plan: Patient presented with hypotension, renal insufficiency, altered mental status, elevated WBC, and lactic acidosis. Probably related to the HoTN from the GI bleed. Patient adequately fluid-resuscitated and his overall condition has improved. lactic was 5.1 before dropping to 0.8 today. BP stable now. BCx NGTD. Rocephin continued. PT/OT. Out of bed. (2) GI bleed: Qualifiers: GI bleed type/associated pathology: unspecified gastrointestinal hemorrhage type Qualified Code(s): K92.2 - Gastrointestinal hemorrhage, unspecified Code(s): K92.2 - Gastrointestinal hemorrhage, unspecified Status: Acute Assessment and Plan: Patient with coffee-ground emesis and he had approximately 1 L of coffee-ground material removed. Treated with Protonix and octreotide infusion. Patient received 1 unit of unmatched packed RBC in the ED. GI consulted and EGD performed 06/13 showing reflux esophagitis Grade D but no varices and mild gastritis. Hgb 7.8 on admission but dropped to 6.9 this morning. Transfusion ordered. Follow closely. (3) Hypotension: Qualifiers: Hypotension type: unspecified hypotension type Qualified Code(s): I95.9 - Hypotension, unspecified Code(s): I95.9 - Hypotension, unspecified Status: Acute Assessment and Plan: Patient was HoTN on admission felt to be multifactorial related to GI bleed with hypovolemia and dehydration. Patient has been adequately fluid-resuscitated and received 1 unit of unmatched PRBC. BP better. Follow closely. Decrease IV fluid rate. (4) Anemia: Qualifiers: Anemia type: unspecified type Qualified Code(s): D64.9 - Anemia, unspecified Code(s): D64.9 - Anemia, unspecified Status: Acute Assessment and Plan: As above. Anemia probably acute from acute blood loss and possibly a chronic componenet. Follow and transfuse as needed (5) Diabetes: Code(s): E11.9 - Type 2 diabetes mellitus without complications Status: Acute Assessment and Plan: The patient's blood glucose was reviewed on 06/14 Glucose more stable from 120-230. Patient takes Lantus twice a day and mealtime insulin at home but has been noncompliant. Continue AccuCheks covering with sliding scale. Hypoglycemia protocol available as needed. Continue to monitor blood sugars closely. Will advance his insulin regiment since his diet has been adjusted to diabetic diet. (6) Hyperosmolar hyperglycemic state (HHS): Code(s): E11.00 - Type 2 diabetes mellitus with hyperosmolarity without nonketotic hyperglycemic-hyperosmolar coma (NKHHC); E11.65 - Type 2 diabetes mellitus with hyperglycemia Status: Acute Assessment and Plan: Patient with hyperglycemia with no metabolic acidosis and slightly positive beta hydroxybutyrate. Consider HHS. Patient has been poorly compliant at home with his insulin regiment. Mental status better. His states patient refuses insulin when he starts to feel ill. (7) Acute kidney injury: Code(s): N17.9 - Acute kidney failure, unspecified Status: Acute Assessment and Plan: Creatinine 2.3 on admission. Unclear if he has acute, acute on chronic or chronic kidney disease. Creatinine has improved so there seems to be at least an acute process. Acute kidney injury could be related to hypovolemia, anemia and hypotension from the GI bleed. Continue to monitor urine output and renal function. (8) Cirrhosis: Code(s): K74.60 - Unspecified cirrhosis of liver Status: Acute Assessment and Plan: Patient with cirrhosis listed as a past medical history although CT of the abdomen done here shows a normal appearing liver. No ascites noted. Ammonia level was less than 9. PT and PTT are normal. LFTs normal today. Unclear if
--- NOTE | 2021-06-14 11:28 | PCNFU ---
Nutrition Follow-Up Complete: Altered GI functions as related to GI Bleed as evidenced by NPO Goal: Meet estimated nutritional needs Patient is progressing towards goal. We will continue current goal. Pt current nutrition is Full liquids with Glucerna shakes BID. Last recorded weight is 85.1 kg, down from 84.3 kg on admit. Bowel Motility:No BM reported. Labs Reviewed:PO4 2.2, Glu 195, Cr 1.6, Na 132, Hct 23.1,Hgb 6.9 Meds Noted:NS, Carafate, Effexor, Zofran, Protonix, Folic Acid, Lipitor, Neurontin, NovoLog, Rocephin, Lipitor. Skin:WNL Additional Notes: Nutrition follow up. Patient has advanced to a full liquid diet. He did eat cream of wheat for breakfast. Diet supplements orders changed per MD to Glucerna Shakes vs Ensure compact due to patient being a diabetic. Recommend advancing to diabetic diet as tolerated per MD orders. Monitoring: Will monitor every 5 days.
[2021-06-14 11:32] LABS: Glucose Point of Care 181 mg/dl (65-105)
--- NOTE | 2021-06-14 12:52 | WPDANESPN ---
Anes - Prog Note Post-Op Date/Time: 06/14/21 12:52 Cardiovascular status: normal Respiratory status: normal Airway patency: baseline Mental status: baseline Post-Op hydration status: normal Vital Signs: Last Vital Signs Temp 36.8 C 06/14/21 11:27 Pulse 64 06/14/21 11:27 Resp 14 06/14/21 11:27 BP 159/90 H 06/14/21 11:27 Pulse Ox 100 06/14/21 11:36 Pain Score (VAS): 0 I/O: Intake & Output 06/13/21 06/14/21 06/14/21 23:59 07:59 15:59 Intake Total 1240 1320 410 Output Total 550 550 Balance 690 770 410 Laboratory Tests 06/14/21 04:27 06/14/21 04:27 06/12/21 06/13/21 06/13/21 10:01 07:23 10:34 WBC 15.0 H RBC 3.26 L Hgb 7.6 L 7.5 L Hct 25.4 L MCV 77.9 L MCH 23.3 L MCHC 29.9 L RDW 15.3 H Plt Count 308 MPV 9.0 Immature Gran % (Auto) 0.5 Neut % (Auto) 76.9 H Lymph % (Auto) 14.1 L [place] % (Auto) 7.0 Eos % (Auto) 1.0 Baso % (Auto) 0.5 Lymph # (Auto) 2.11 [place] # (Auto) 1.0 H Eos # (Auto) 0.2 Baso # (Auto) 0.1 Abs Immat Gran (auto) 0.07 H Absolute Neuts (auto) 11.5 H Absolute Nucleated RBC 0.0 Nucleated RBC % 0.0 Platelet Estimate Adequate Ovalocytes 1+ Schistocytes 1+ Sodium Potassium Chloride Carbon Dioxide Anion Gap BUN Creatinine Estim Creat Clear Calc Estimated GFR Glucose POC Capillary Glucose Lactic Acid Calcium Phosphorus Magnesium Total Bilirubin AST ALT Alkaline Phosphatase Total Protein Albumin HCV RNA (PCR) IUs/ml HCV RNA PCR log IUs/ml Blood Type O Negative Antibody Screen Negative Crossmatch See Detail 06/13/21 06/13/21 06/13/21 14:09 14:35 16:40 WBC RBC Hgb 7.1 L Hct 23.4 L MCV MCH MCHC RDW Plt Count MPV Immature Gran % (Auto) Neut % (Auto) Lymph % (Auto) [place] % (Auto) Eos % (Auto) Baso % (Auto) Lymph # (Auto) [place] # (Auto) Eos # (Auto) Baso # (Auto) Abs Immat Gran (auto) Absolute Neuts (auto) Absolute Nucleated RBC Nucleated RBC % Platelet Estimate Ovalocytes Schistocytes Sodium Potassium Chloride Carbon Dioxide Anion Gap BUN Creatinine Estim Creat Clear Calc Estimated GFR Glucose POC Capillary Glucose 202 H Lactic Acid 2.9 H Calcium Phosphorus Magnesium Total Bilirubin AST ALT Alkaline Phosphatase Total Protein Albumin HCV RNA (PCR) IUs/ml HCV RNA PCR log IUs/ml Blood Type Antibody Screen Crossmatch 06/13/21 06/13/21 06/13/21 17:12 21:43 21:50 WBC RBC Hgb 6.9 L* Hct 22.6 L MCV MCH MCHC RDW Plt Count MPV Immature Gran % (Auto) Neut % (Auto) Lymph % (Auto) [place] % (Auto) Eos % (Auto) Baso % (Auto) Lymph # (Auto) [place] # (Auto) Eos # (Auto) Baso # (Auto) Abs Immat Gran (auto) Absolute Neuts (auto) Absolute Nucleated RBC Nucleated RBC % Platelet Estimate Ovalocytes Schistocytes Sodium Potassium Chloride Carbon Dioxide Anion Gap BUN Creatinine Estim Creat Clear Calc Estimated GFR Glucose POC Capillary Glucose 177 H 120 H Lactic Acid Calcium Phosphorus Magnesium Total Bilirubin AST ALT Alkaline Phosphatase Total Protein Albumin HCV RNA (PCR) IUs/ml HCV RNA PCR log IUs/ml Blood Type Antibody Screen Crossmatch 06/14/21 06/14/21 06/14/21 04:27 04:27 04:27 WBC 13.5 H RBC 2.98 L Hgb 6.9 L* Hct 23.1 L MCV 77.5 L MCH 23.2 L MCHC 29.9 L RDW 15.7 H Plt Count 270 MPV 9.3 Immature Gran % (Auto) Neut % (Auto) Lymph % (Auto) [place] % (Auto) Eos % (Auto) Baso % (Auto) Lymph # (Auto) [place] # (Auto) Eos # (Auto) Baso # (Auto) Abs Immat Gran (auto)
--- NOTE | 2021-06-14 13:30 | WPDGIPROGNO ---
Progress Note: A&P Assessment and Plan (1) UGIB (upper gastrointestinal bleed): Code(s): K92.2 - Gastrointestinal hemorrhage, unspecified Status: Acute Assessment and Plan: no more episodes, due to severe erosive esophagitis (2) Erosive esophagitis: Code(s): K22.10 - Ulcer of esophagus without bleeding Status: Acute Assessment and Plan: cause of GIB, severe esophagitis, no varices continue with iv protonix bid advance diet as tolerated consider egd in 3 months to assess healing (3) Acute on chronic blood loss anemia: Code(s): D62 - Acute posthemorrhagic anemia Status: Acute Assessment and Plan: hb 6.9 and getting another unit of prbc ppi (4) Hematemesis: Code(s): K92.0 - Hematemesis Status: Acute (5) Acute on chronic kidney failure: Code(s): N17.9 - Acute kidney failure, unspecified; N18.9 - Chronic kidney disease, unspecified Status: Acute Assessment and Plan: renal function slowly improving (6) Dehydration: Code(s): E86.0 - Dehydration Status: Acute (7) Cirrhosis: Code(s): K74.60 - Unspecified cirrhosis of liver Status: Acute Assessment and Plan: per history, treated for HCV in the past follow-up with coat joiner as outpatient (8) Uncontrolled diabetes mellitus: Code(s): E11.65 - Type 2 diabetes mellitus with hyperglycemia Status: Acute Assessment and Plan: by primary, glucose reading improving (9) History of hepatitis C: Code(s): Z86.19 - Personal history of other infectious and parasitic diseases Status: Acute Assessment and Plan: treated in the past he is establish with coat joiner at [facility] pending HCV RNA to confirm eradication Subjective Date/time seen: 06/14/21 13:30 Interval history: egd yesterday showed severe erosive esophagitis as cause of presentation. No more report of bleeding and tolerated diet. Review of Systems Review of Systems: All systems reviewed & are unremarkable except as noted in HPI and below Exam Const: General: comfortable and no acute distress HENMT: General nose exam: Normal nares present Eyes: General: appearance normal, both eyes and all related structures Neck: Neck: supple Resp: Auscultation: clear to auscultation bilaterally GI: GI Palp: Yes Soft to palpation and No Guarding due to palpation present (GI) Auscultation: normal bowel sounds Skin: General skin exam: no rashes or lesions noted Neuro: Speech: normal speech Extrem: General: normal to inspection Psych: Mental Status: mental status grossly normal Objective Data Vital Signs Vital Signs: Vital Signs - 24 hr 06/13/21 13:41 06/13/21 13:51 06/13/21 14:01 Temperature Pulse Rate 78 86 76 Respiratory Rate 18 16 18 Blood Pressure 81/65 L 96/78 L 116/80 Pulse Oximetry 100 98 100 06/13/21 15:08 06/13/21 16:00 06/13/21 17:57 Temperature Pulse Rate 81 80 81 Respiratory Rate 23 H 18 Blood Pressure 164/94 H Pulse Oximetry 98 93 06/13/21 20:00 06/13/21 22:00 06/13/21 23:46 Temperature 98.1 F Pulse Rate 77 70 77 Respiratory Rate 18 Blood Pressure 150/82 H Pulse Oximetry 98 06/14/21 00:00 06/14/21 02:00 06/14/21 03:53 Temperature 97.9 F Pulse Rate 75 77 79 Respiratory Rate 18 Blood Pressure 160/86 H Pulse Oximetry 95 06/14/21 04:00 06/14/21 08:00 06/14/21 09:13 Temperature 98.2 F 96.9 F L Pulse Rate 82 70 Respiratory Rate 16 12 Blood Pressure 166/92 H 154/85 H Pulse Oximetry 96 97 99 06/14/21 10:00 06/14/21 11:10 06/14/21 11:27 Temperature 98.1 F 98.3 F Pulse Rate 67 65 64 Respiratory Rate 11 L 14 Blood Pressure 154/92 H 159/90 H Pulse Oximetry 100 100 06/14/21 11:36 06/14/21 12:00 06/14/21 12:27 Temperature 98.6 F 98.6 F Pulse Rate 62 64 Respiratory Rate 13 12 Blood Pressure 140/89 148/83 H Pulse Oximetry 100 98 98 06/14/21 13:25 Temperature 98.4 F
[2021-06-14 14:47] LABS: Hematocrit 27.2 % (42.0-52.0); Hemoglobin 8.5 g/dL (14.0-18.0)
[2021-06-14] MEDS: MAGNESIUM SULF 2 GM/WATER 50ML 2 GM/50 ML BAG IVPB (16:01)
[2021-06-14 17:52] LABS: Glucose Point of Care 109 mg/dl (65-105)
[2021-06-14 21:04] LABS: Glucose Point of Care 179 mg/dl (65-105)
[2021-06-14] MEDS: INSULIN GLARGINE (*BKC) 100 UNITS/ML 20 UNITS SUB-Q (21:09)
[2021-06-14 21:54] LABS: Hematocrit 26.5 % (42.0-52.0); Hemoglobin 8.3 g/dL (14.0-18.0)
[2021-06-15] VITALS: BP 167/88; PULSE 62; PULSE 64; RESP 14; TEMP 36.8; O2SAT 97
[2021-06-15 03:29] VITALS: BP 160/94; PULSE 62; RESP 16; TEMP 36.7; O2SAT 100
[2021-06-15 04:00] VITALS: PULSE 64
[2021-06-15 05:47] LABS: Hematocrit 28.7 % (42.0-52.0); Hemoglobin 8.9 g/dL (14.0-18.0); Mean Corpuscular Hemoglobin 24.3 pg (26-34); Mean Corpuscular Volume 78.2 fl (80-100); Mean Platelet Volume 10.4 fl (7.4-10.4); Platelet Count Result 246 k/mm3 (150-375); Red Blood Count 3.67 M/mm3 (4.6-6.20); Red Cell Distribution Width 16.2 % (11.5-14.5); White Blood Count 10.4 K/mm3 (4.5-10.0)
[2021-06-15 06:06] LABS: Alanine Aminotransferase 14 U/L (4-50); Alkaline Phosphatase 64 U/L (38-126); Anion Gap 10 mmol/L (8-16); Aspartate Amino Transferase 26 U/L (17-59); Bilirubin,Total 1.6 mg/dL (0.2-1.3); Blood Urea Nitrogen 17 mg/dL (9-20); Calcium 8.2 mg/dL (8.4-10.2); Carbon Dioxide 28 mmol/L (22-30); Chloride 93 mmol/L (98-107); Estimated CRCL calculation 51 ml/min; Estimated Glomerular Filt Rate > 60; Glucose 162 mg/dL (65-110); Magnesium 1.9 mg/dL (1.6-2.3); Phosphorus 1.8 mg/dL (2.5-4.5); Potassium 3.4 mmol/L (3.4-5.0); Sodium 131 mmol/L (137-145)
[2021-06-15] MEDS: SUCRALFATE SUSP 100 MG/ML 10 ML UDC 1000 MG PO ×2 (06:07→12:50)
[2021-06-15 06:10] LABS: Glucose Point of Care 164 mg/dl (65-105)
--- NOTE | 2021-06-15 06:12 | WPDCDIQUERY2 ---
CDI Query Clarification Request -Sepsis has been documented - Patient presented with hypotension, renal insufficiency, altered mental status, elevated WBC, and lactic acidosis. Probably related to the HoTN from the GI bleed has been documented -No infection has been identified Since no infection/suspected infection has been identified, please clarify if sepsis has been ruled in or ruled out. <Elvira Jaeger RN - Last Filed: 06/15/21 09:03>
[2021-06-15 08:00] VITALS: BP 165/91; PULSE 62; PULSE 63; RESP 16; TEMP 36.9; O2SAT 99
[2021-06-15] MEDS: INSULIN GLARGINE (*BKC) 100 UNITS/ML 20 UNITS SUB-Q (08:00)
[2021-06-15] MEDS: INSULIN ASPART (*BKC) 100 UNITS/ML 8 UNITS SUB-Q ×2 (08:02→12:53)
[2021-06-15] MEDS: PANTOPRAZOLE SODIUM IV 40 MG VIAL IV PUSH (08:04)
[2021-06-15] MEDS: VENLAFAXINE HCL XR 75 MG CAP.ER.24H 150 MG PO (08:04)
[2021-06-15] MEDS: FOLIC ACID 1 MG TABLET PO (08:04)
[2021-06-15] MEDS: GABAPENTIN 100 MG CAPSULE 200 MG PO ×2 (08:04→12:50)
[2021-06-15] MEDS: ATORVASTATIN 40 MG TABLET 80 MG PO (08:05)
[2021-06-15 08:27] LABS: Glucose Point of Care 228 mg/dl (65-105)
[2021-06-15] MEDS: POTASSIUM CHLORIDE 20 MEQ TABLET 40 MEQ PO (09:51)
[2021-06-15] MEDS: POTASSIUM/PHOSPHORUS/SODIUM 1.5 GM PACKET 1 PACKET PO (09:52)
[2021-06-15 12:00] VITALS: BP 131/83; PULSE 63; PULSE 69; RESP 16; O2SAT 98
[2021-06-15 12:54] LABS: Glucose Point of Care 190 mg/dl (65-105)
--- NOTE | 2021-06-15 14:56 | PM.DS ---
DS: Admitting Diagnosis Discharge Date 06/15/21 Admitting Diagnosis Hematemesis and loss of consciousness. DS: Discharge Diagnosis Discharge Diagnosis (1) SIRS (systemic inflammatory response syndrome): Code(s): R65.10 - Systemic inflammatory response syndrome (SIRS) of non-infectious origin without acute organ dysfunction Status: Acute Assessment and Plan: Patient presented with hypotension, renal insufficiency, altered mental status, elevated WBC, and lactic acidosis. Probably related to the HoTN from the GI bleed. Patient adequately fluid-resuscitated and his overall condition has improved. lactic was 5.1 before dropping to 0.8 today. BP stable now. BCx NGTD. Treated with Rocephin but no evidence of infectious process. Suspect patient had SIRS related to the GI bleed and not sepsis. (2) GI bleed: Qualifiers: GI bleed type/associated pathology: unspecified gastrointestinal hemorrhage type Qualified Code(s): K92.2 - Gastrointestinal hemorrhage, unspecified Code(s): K92.2 - Gastrointestinal hemorrhage, unspecified Status: Acute Assessment and Plan: Patient with coffee-ground emesis and he had approximately 1 L of coffee-ground material removed. Treated with Protonix and octreotide infusion. Patient received 1 unit of unmatched packed RBC in the ED. GI consulted and EGD performed 06/13 showing reflux esophagitis Grade D but no varices and mild gastritis. Hgb 7.8 on admission but dropped to 6.9 requiring a 2nd transfusion. Hemoglobin has since remained stable. Carafate added (3) Hypotension: Qualifiers: Hypotension type: unspecified hypotension type Qualified Code(s): I95.9 - Hypotension, unspecified Code(s): I95.9 - Hypotension, unspecified Status: Acute Assessment and Plan: Patient was HoTN on admission felt to be multifactorial related to GI bleed with hypovolemia and dehydration. Patient has been adequately fluid-resuscitated and received transfusion. BP became stable. (4) Anemia: Qualifiers: Anemia type: unspecified type Qualified Code(s): D64.9 - Anemia, unspecified Code(s): D64.9 - Anemia, unspecified Status: Acute Assessment and Plan: As above. Anemia probably acute from acute blood loss and possibly a chronic component. (5) Diabetes: Code(s): E11.9 - Type 2 diabetes mellitus without complications Status: Acute Assessment and Plan: A1c 8.1. The patient's blood glucose was monitor closely. Patient takes Lantus twice a day and mealtime insulin at home but has been noncompliant. He was monitored with AccuCheks covering with sliding scale. Glucose remains stable. He was maintained on a diabetic diet. (6) Hyperosmolar hyperglycemic state (HHS): Code(s): E11.00 - Type 2 diabetes mellitus with hyperosmolarity without nonketotic hyperglycemic-hyperosmolar coma (NKHHC); E11.65 - Type 2 diabetes mellitus with hyperglycemia Status: Acute Assessment and Plan: Patient with hyperglycemia with no metabolic acidosis and slightly positive beta hydroxybutyrate. Consider HHS. Patient has been poorly compliant at home with his insulin regiment. Mental status back to baseline per family. His states patient refuses insulin when he starts to feel ill. He was encouraged about the benefits of remaining compliant with his treatment (7) Acute kidney injury: Code(s): N17.9 - Acute kidney failure, unspecified Status: Acute Assessment and Plan: Creatinine 2.3 on admission. Unclear if he has acute or acute on chronic. Acute kidney injury related to hypovolemia, anemia and hypotension from the GI bleed. Creatinine improved to 1.4. (8) Cirrhosis: Code(s): K74.60 - Unspecified cirrhosis of liver Status: Acute Assessment and Plan: Patient with cirrhosis listed as a past medical history although CT of the abdomen done here shows a no
--- NOTE | 2021-06-15 15:33 | WPDGIPROGNO ---
Progress Note: A&P Assessment and Plan (1) UGIB (upper gastrointestinal bleed): Code(s): K92.2 - Gastrointestinal hemorrhage, unspecified Status: Acute Assessment and Plan: no more episodes, due to severe erosive esophagitis hb stable will go home with protonix bid egd in 3 months to assess for healing (2) Erosive esophagitis: Code(s): K22.10 - Ulcer of esophagus without bleeding Status: Acute Assessment and Plan: cause of gib doing well (3) Acute on chronic blood loss anemia: Code(s): D62 - Acute posthemorrhagic anemia Status: Acute Assessment and Plan: hb stable after blood transfusion (4) Hematemesis: Code(s): K92.0 - Hematemesis Status: Acute Assessment and Plan: resolved (5) Acute on chronic kidney failure: Code(s): N17.9 - Acute kidney failure, unspecified; N18.9 - Chronic kidney disease, unspecified Status: Acute Assessment and Plan: renal function slowly improving (6) Dehydration: Code(s): E86.0 - Dehydration Status: Acute Assessment and Plan: resolved (7) Cirrhosis: Code(s): K74.60 - Unspecified cirrhosis of liver Status: Acute Assessment and Plan: per history, treated for HCV in the past 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 Doing fairly well and would like to go home. Review of Systems Review of Systems: All systems reviewed & are unremarkable except as noted in HPI and below Exam Const: General: comfortable and no acute distress HENMT: General nose exam: Normal nares present Eyes: General: appearance normal, both eyes and all related structures Neck: Neck: supple Resp: Auscultation: clear to auscultation bilaterally GI: GI Palp: Yes Soft to palpation and No Guarding due to palpation present (GI) Auscultation: normal bowel sounds Skin: General skin exam: no rashes or lesions noted Neuro: Speech: normal speech Extrem: General: normal to inspection Psych: Mental Status: mental status grossly normal Objective Data Vital Signs Vital Signs: Vital Signs - 24 hr 06/14/21 16:00 06/14/21 17:30 06/14/21 20:00 Temperature 98.2 F 98 F Pulse Rate 71 66 Respiratory Rate 16 Blood Pressure 172/97 H 145/95 H 149/88 H Pulse Oximetry 99 97 06/15/21 00:00 06/15/21 03:29 06/15/21 04:00 Temperature 98.2 F 98.1 F Pulse Rate 64 62 64 Respiratory Rate 14 16 Blood Pressure 167/88 H 160/94 H Pulse Oximetry 97 100 06/15/21 08:00 06/15/21 12:00 Temperature 98.4 F Pulse Rate 62 69 Respiratory Rate 16 16 Blood Pressure 165/91 H 131/83 Pulse Oximetry 99 98 Intake/Output Intake/Output: Intake & Output 06/12/21 06/13/21 06/14/21 06/15/21 23:59 23:59 23:59 23:59 Intake Total 4900 4590 2740 840 Output Total 7038 937 4237 1225 Balance 3400 3640 915 -385 Meds/Results Medications: Active Medications Generic Name Dose Route Start Last Admin Trade Name Freq PRN Reason Stop Dose Admin Atorvastatin Calcium 80 mg 06/13/21 15:00 06/15/21 08:05 Atorvastatin 40 Mg Tablet PO 80 mg DAILY JOHANNE Administration Dextrose 12.5 gm 06/12/21 17:28 06/13/21 00:11 Dextrose 50% 25 Gm/50 Ml Syringe IV PUSH 12.5 gm PRN PRN Administration Hypoglycemia Protocol Ergocalciferol 50,000 unit 06/13/21 16:00 06/13/21 15:18 Ergocalciferol 50,000 Unit Capsule PO 07/20/21 15:59 50,000 unit WEEKLY JOHANNE A
[2021-06-16 15:53] LABS: Chloride Rand Ur <20 mmol/L (32-290); Creatinine Random Urine 25 mg/dL (20-320)
[2021-06-16 18:15] LABS: Hepatitis C RNA, Quant PCR <15 IU/mL
--- NOTE | 2021-06-20 12:59 | PC.NURSE ---
Hep C Viral RNa- WNL at <15.
== END 2021-06-15 16:03 | disposition home or self-care (01) | DRG 380 ==
LOC: ANHED 11:40 → ANHICU 12:17
PROVIDERS: Internal Medicine; Internal Medicine Gastroenterology; Physician Assistant; Admitting Provider Family Medicine; Emergency Provider Emergency Medicine; Visit Provider Internal Medicine
PROC: 0DJ08ZZ Inspection of Upper Intestinal Tract, Via Natural or Artificial Opening Endoscopic (ICD-10-PCS; CPT 43235; principal; 2021-06-13 14:00)
DX: K22.11 Ulcer of esophagus with bleeding (principal); E11.00 Type 2 diabetes mellitus with hyperosmolarity without nonketotic hyperglycemic-hyperosmolar coma (NKHHC); N17.9 Acute kidney failure, unspecified; R65.10 Systemic inflammatory response syndrome (SIRS) of non-infectious origin without acute organ dysfunction; D62 Acute posthemorrhagic anemia; K21.01 Gastro-esophageal reflux disease with esophagitis, with bleeding; K29.70 Gastritis, unspecified, without bleeding; K44.9 Diaphragmatic hernia without obstruction or gangrene; I95.9 Hypotension, unspecified; E11.65 Type 2 diabetes mellitus with hyperglycemia; K74.60 Unspecified cirrhosis of liver; E86.0 Dehydration; E87.6 Hypokalemia; F17.210 Nicotine dependence, cigarettes, uncomplicated; N40.0 Benign prostatic hyperplasia without lower urinary tract symptoms; E11.42 Type 2 diabetes mellitus with diabetic polyneuropathy; E78.5 Hyperlipidemia, unspecified; E11.22 Type 2 diabetes mellitus with diabetic chronic kidney disease; I12.9 Hypertensive chronic kidney disease with stage 1 through stage 4 chronic kidney disease, or unspecified chronic kidney disease; N18.9 Chronic kidney disease, unspecified; Z79.82 Long term (current) use of aspirin; Z79.4 Long term (current) use of insulin; Z86.19 Personal history of other infectious and parasitic diseases
CPT/HCPCS: 36415; 36430; 36600; 70450; 71045; 74176; 80048; 80053; 81001; 82010; 82140; 82436; 82533; 82550; 82570; 82607; 82728; 82746; 82805; 82948; 83036; 83540; 83550; 83605; 83690; 83735; 84100; 84133; 84300; 84439; 84443; 84480; 85014; 85018; 85025; 85027; 85610; 85730; 85999; 86850; 86900; 86901; 86920; 87040; 87522; 93005; 96365; 96366; 96367; 96368; 96375; 96376; 97162; 97165; 99285; A9270; C9113; G0378; J0696; J1815; J2001; J2060; J2270; J2354; J2405; J2704; J3475; J3480; J7030; J7040; J7050; J7060; J7120; P9016

== ENCOUNTER 2021-06-28 09:23 | Outpatient (CLI) | payer MEDICARE, SELFPAY ==
[2021-06-28 09:57] LABS: Albumin Level 4.3 g/dL (3.5-5.1); Anion Gap 9 mmol/L (8-16); Blood Urea Nitrogen 9 mg/dL (9-20); Calcium 9.1 mg/dL (8.4-10.2); Carbon Dioxide 27 mmol/L (22-30); Chloride 101 mmol/L (98-107); Estimated Glomerular Filt Rate > 60; Glucose 159 mg/dL (65-110); Potassium 3.5 mmol/L (3.4-5.0); Sodium 137 mmol/L (137-145)
== END 2021-06-28 09:24 | disposition home or self-care (01) ==
PROVIDERS: Visit Provider Internal Medicine
DX: E87.8 Other disorders of electrolyte and fluid balance, not elsewhere classified (principal)
CPT/HCPCS: 36415; 80069

== ENCOUNTER 2021-10-04 22:51 | Observation (INO) | payer MEDICARE, SELFPAY ==
--- NOTE | ~2021-10-04 | CT_ITS ---
EXAMINATION: CT abdomen pelvis w con DATE: 10/05/2021 00:45 INDICATION: Low abdominal pain. Hematemesis. TECHNIQUE: Computed tomography (CT) of the abdomen and pelvis was performed with 100 mL Omnipaque 350 intravenous contrast. Automated exposure control and iterative reconstruction technique were employe d. The dose-length product was 890.31 mGy-cm. COMPARISON: CT abdomen and pelvis 06/12/2021 FINDINGS: The visualized portions of the lung bases demonstrate mild atelectasis. No pleural effusion . The heart size is normal. No pericardial effusion. There is a moderate-sized sliding hiatal hernia. The liver is normal. There are gallstones in the gallbladder, which is normal in size. The spleen, p ancreas, and adrenal glands are normal. There are cysts in the kidneys measuring up to 2.9 cm on the right. There is cortical thinning of the kidneys. A penile prosthesis is noted. The prostate is mildl y enlarged. There are no dilated loops of bowel. The appendix is normal. There are no pathologically enlarged lymph nodes. There is no free intraperitoneal fluid. There is mild lumbar spondylosis. IMPRESSION: 1. Moderate-sized sliding hiatal hernia. Reviewed, dictated and finalized at location A. CALIBRATOR
--- NOTE | ~2021-10-04 | XR_ITS ---
EXAMINATION: XR chest 1V portable DATE: 10/04/2021 23:57 INDICATION: Cough TECHNIQUE: frontal view of the chest was obtained. COMPARISON: Chest radiograph dated 06/12/2021 FINDINGS: Unchanged mild elevation of the left hemidiaphragm. No focal airspace opacities, pulmonary edema, ple ural effusion or pneumothorax. The cardiomediastinal silhouette is normal. Degenerative skeletal hoang ges at the bilateral shoulders. IMPRESSION: 1. Chronic mild elevation of left hemidiaphragm. No acute cardiopulmonary disease. Reviewed, dictated and finalized at location A. [employer] IMPRESSION: 1. Chronic mild elevation of left hemidiaphragm. No acute cardiopulmonary disea se.
[2021-10-04 22:55] VITALS: BP 176/101; PULSE 88; RESP 20; O2SAT 100
[2021-10-04 23:05] VITALS: PULSE 86
[2021-10-04 23:06] VITALS: BP 160/101; PULSE 86; RESP 13; O2SAT 100
[2021-10-04 23:15] VITALS: PULSE 80; RESP 16
--- NOTE | 2021-10-04 23:23 | PC.NURSE ---
Patient refused ortho BP right now because he cannot lay down right now due to stomach pain.
[2021-10-04 23:24] LABS: Basophils Absolute Auto 0.1 K/mm3 (0.0-0.1); Basophils Percent Auto 0.3 % (0.2-1.2); Eosinophils Percent Auto 0.2 % (0-4.4); Hematocrit 33.9 % (42.0-52.0); Hemoglobin 9.8 g/dL (14.0-18.0); Immature Granulocyte Absolute 0.06 K/mm3 (0.00-0.031); Immature Granulocyte Percent A 0.3 % (0-0.5); Lymphocytes Absolute Auto 2.58 K/mm3 (0.9-3.2); Lymphocytes Percent Auto 14.9 % (18.3-44.2); Mean Corpuscular HGB Conc 28.9 g/dl (32-36); Mean Corpuscular Hemoglobin 22.3 pg (26-34); Mean Corpuscular Volume 77.2 fl (80-100); Mean Platelet Volume 10.1 fl (7.4-10.4); Monocytes Absolute Auto 1.2 K/mm3 (0.1-0.6); Monocytes Percent Auto 6.9 % (2.6-8.5); Neutrophils Absolute Auto 13.4 K/mm3 (1.3-6.7); Neutrophils Percent Auto 77.4 % (45.5-73.1); Platelet Count Result 316 k/mm3 (150-375); Red Blood Count 4.39 M/mm3 (4.6-6.20); Red Cell Distribution Width 16.1 % (11.5-14.5); White Blood Count 17.3 K/mm3 (4.5-10.0)
[2021-10-04 23:30] VITALS: BP 176/93; PULSE 80; PULSE 82; RESP 14; O2SAT 98
[2021-10-04 23:35] LABS: INR 1.1; Prothrombin Time 13.4 Seconds (11.1-14.7)
[2021-10-04 23:36] LABS: Partial Thromboplastin Time 31.9 SECONDS (22.3-36.8)
[2021-10-04 23:45] LABS: Alanine Aminotransferase 16 U/L (4-50); Alkaline Phosphatase 68 U/L (38-126); Anion Gap 13 mmol/L (8-16); Aspartate Amino Transferase 50 U/L (17-59); Bilirubin,Total 1.9 mg/dL (0.2-1.3); Blood Urea Nitrogen 31 mg/dL (9-20); Calcium 9.5 mg/dL (8.4-10.2); Carbon Dioxide 35 mmol/L (22-30); Chloride 89 mmol/L (98-107); Estimated Glomerular Filt Rate 46; Glucose 397 mg/dL (65-110); Potassium 3.1 mmol/L (3.4-5.0); Sodium 137 mmol/L (137-145)
[2021-10-04] MEDS: INSULIN HUMAN REGULAR (*BKC) 100 UNITS/ML 8 UNITS SUB-Q (23:58)
[2021-10-05] VITALS (32 sets, daily range): BP systolic 134–195; BP diastolic 76–114; PULSE 63–98; RESP 11–24; TEMP 36.3–36.5; O2SAT 92–100; BMI 29.0
[2021-10-05] MEDS: SODIUM CHLORIDE 0.9% IV 1,000 ML 999 ML IV CONT
--- NOTE | 2021-10-05 | ECG_ITS ---
Measurements Intervals [place] Rate: 78 P: 20 MT: 196 QRS: -47 QRSD: 104 T: 75 QT: 334 QTc: 382 Interpretive Statements SINUS RHYTHM WITH SINUS ARRHYTHMIA LEFT ANTERIOR FASCICULAR BLOCK [QRS AXIS <= -45, QR IN I, RS IN II] CANNOT RULE OUT SEPTAL MYOCARDIAL INFARCTION , PROBABLY OLD [40+ ms Q WAVE IN V1/V2] BORDERLINE ECG COMPARED TO ECG 06/12/2021 17:34:18 LEFT ANTERIOR FASCICULAR BLOCK NOW PRESENT POSSIBLE MYOCARDIAL INFARCT FINDING NOW PRESENT Electronically Signed On 10-05-2021 13:14:53 COSMETICIAN APPRENTICE by Hank Garcia M.D.
[2021-10-05] MEDS: PANTOPRAZOLE SODIUM IV 40 MG VIAL 80 MG IV PUSH (00:09)
[2021-10-05] MEDS: ONDANSETRON INJ 4 MG/2 ML VIAL IV PUSH ×2 (00:10→20:58)
[2021-10-05 00:12] LABS: Lipase 57 U/L (23-300)
--- NOTE | 2021-10-05 00:38 | PC.NURSE ---
Patient at CT scan
[2021-10-05 00:52] LABS: Alveolar/Arterial O2 Gradient 30.6 mmHg; Base Excess ABG 7.1 mEq/l (+/-2.0); Carboxyhemoglobin 0.7 % THb (0-2.0); Fractional Inspired Oxygen 21 %; HCO3 ABG 31.9 mEq/l (22.0-26.0); Methemoglobin ABG 0.3 %THb (0-1.5); Oxygen Content ABG 12.2 %vol (16.0-22.0); Oxyhemoglobin 89.3 % THb (90.0-100.0); PCO2 ABG 46.6 mmHg (35.0-45.0); PO2 ABG 63.3 mmHg (80.0-100.0); PO2 FiO2 Ratio Arterial Blood 3.01 %; Reduced Hemoglobin 9.7 %THb (0-5.0); Total Hemoglobin 9.7 g/dL (12.0-18.0); pH ABG 7.453 (7.350-7.450)
[2021-10-05 00:53] LABS: Device ROOM AIR; Modified Allen's Test Pass; Site Drawn LEFT RADIAL
--- NOTE | 2021-10-05 01:05 | ED.ABDPAIN ---
HPI - Abdominal Pain General Chief Complaint: Abdominal Pain Stated Complaint: bloody emesis Time Seen by Provider: 10/04/21 23:12 Source: patient, family (), RN notes reviewed and old records reviewed Mode of arrival: ambulatory Limitations: no limitations History of Present Illness HPI narrative: This is a 66 year old male with history of esophagitis, gastritis who presents for evaluation of hematemesis. Patient's states patient started having nausea and vomiting on Sunday. He developed emesis with coffee ground emesis on Sunday and she reports he started vomiting more dark blood. Patient started taking carafate and compazine so his emesis has decreased. She reports he is still having some coffee ground emesis. He is also having diffuse burning abdominal pain. His last bowel movement was today and he reports it is brown in color. He denies chest pain, fever or shortness of breath. Patient was hospitalized a few months ago for GI bleed. Related Data Home Medications Medication Instructions Recorded Confirmed FreeStyle Jose J 14 Day Sensor 06/12/21 10/05/21 aspirin 81 mg PO DAILY 06/12/21 10/05/21 atorvastatin 80 mg PO DAILY 06/12/21 10/05/21 ergocalciferol (vitamin D2) 50,000 unit PO WEEKLY 06/12/21 10/05/21 folic acid 1 mg PO DAILY 06/12/21 10/05/21 gabapentin 200 mg PO TID 06/12/21 10/05/21 promethazine 25 mg PO Q8H PRN 06/12/21 10/05/21 venlafaxine 150 mg PO DAILY 06/12/21 10/05/21 Allergies Allergy/AdvReac Type Severity Reaction Status Date / Time metformin Allergy Diarrhea Verified 07/21/21 14:06 pregabalin [From Lyrica] Allergy Swelling Verified 07/21/21 14:06 Review of Systems Review of Systems: All systems reviewed & are unremarkable except as noted in HPI and below PMFSH Past Medical History Medical History Acute on chronic blood loss anemia Arthritis Benign prostatic hyperplasia Chronic kidney disease Cirrhosis Depression Diabetic peripheral neuropathy Dyslipidemia Erosive esophagitis Gastroesophageal reflux disease Hematemesis Hepatitis C Insulin dependent type 2 diabetes mellitus Tobacco abuse disorder UGIB (upper gastrointestinal bleed) Uncontrolled diabetes mellitus Social History Social History Social History: Surrogate decision maker: Mahnaz Christopher, spouse. Code status: Full code. Smoking packs per day: 1 Smoking cigarettes per day: 20.0 Years smoked: 40 Smoking pack-years: 40.00 Smoking status: Current every day smoker Tobacco type: cigarettes Second hand tobacco smoke exposure: Yes Additional smoking assessment comments: pt's spouse says pt smokes between 10 cigarettes and a pack daily Alcohol intake: never Substance use: never Substance use type: does not use Additional living arrangements comments: The patient lives with his in [place]. Additional occupation/education comments: Retired. Spiritual care concerns: No Exam Const: General: alert and ill appearing Eyes: EOM: EOMs intact bilaterally Resp: Effort & Inspection: normal respiratory effort and no retractions Auscultation: clear to auscultation bilaterally Cardio: Rate: regular rate Rhythm: regular rhythm Heart sounds: no murmurs GI: Inspection: distended GI Palp: Yes Soft to palpation, No Tenderness to palpation present (GI), No Guarding due to palpation present (GI) and No Rigid due to palpation Other: heme negative brown stool Back/Spine/Pelvis: Back: no CVA tenderness Skin: General skin exam: normal color Rashes: no rashes Neuro: General: patient oriented x3, moves all extremities and CN's II-XI intact bilaterally Psych: Mental Status: mental status grossly normal Affect: normal affect Course Reevaluation(s) Reevaluation #1: Patient states he feels better. I discussed plan to admit for observation for serial
[2021-10-05 03:11] LABS: Hematocrit 30.7 % (42.0-52.0); Hemoglobin 9.2 g/dL (14.0-18.0)
[2021-10-05 03:50] LABS: Glucose Point of Care 270 mg/dl (65-105)
--- NOTE | 2021-10-05 03:57 | ADMGEN ---
This patient, Jonathon Thurston Candi, was admitted to [facility] Surg Room 306-02. Patient/family oriented to hospital policies and general routines including ID bracelet, bed and alarms, visiting hours, pain management, procedures, bathroom and other care routines, personal items, smoking policy, room service/diet, and visiting hours. Information on how to activate the Rapid Response Team has been discussed. Patient/Family are encouraged to report perceived risks to care and to ask questions if they do not understand what they are told or what they should do.
--- NOTE | 2021-10-05 04:07 | PC.NURSE ---
10/05/21 1588 per pt's request spouse contacted to complete admission questions.
[2021-10-05 08:00] LABS: Glucose Point of Care 237 mg/dl (65-105)
[2021-10-05] MEDS: SODIUM CHLORIDE 0.9% IV 1,000 ML 125 ML IV CONT (08:08)
[2021-10-05] MEDS: KCL 20 MEQ/SW 100 ML 100 ML 50 MEQ IVPB (08:08)
[2021-10-05] MEDS: INSULIN ASPART (*BKC) 100 UNITS/ML SUB-Q ×2 (08:09→16:31)
[2021-10-05 08:32] LABS: Hematocrit 29.6 % (42.0-52.0); Hemoglobin 8.8 g/dL (14.0-18.0)
--- NOTE | 2021-10-05 09:12 | WPDANESEPPF ---
Anes - Initial Pre Proc Eval Procedure: Operation Date: 10/05/21 12:30 Proposed Procedures p Esophagogastroduodenoscopy - Raul Jordan MD Date/Time: 10/05/21 09:12 Surgeon: Sherin Maxwell PA-C Pre Op Diagnosis: Upper Gi bleedin, anemia, dehydration Patient Data Age: 66 Gender: M Height: 1.83 m Weight: 97.1 kg Last Vital Signs Temp 36.5 C 10/05/21 03:41 Pulse 89 10/05/21 04:00 Resp 20 10/05/21 03:41 BP 172/88 H 10/05/21 03:41 Pulse Ox 100 10/05/21 03:20 Allergies Allergy/AdvReac Type Severity Reaction Status Date / Time metformin Allergy Diarrhea Verified 10/05/21 11:24 pregabalin [From Lyrica] Allergy Swelling Verified 10/05/21 11:24 Home Medications Medication Instructions Recorded Confirmed Type FreeStyle Jose J 14 Day Sensor 06/12/21 10/05/21 History aspirin 81 mg PO DAILY 06/12/21 10/05/21 History atorvastatin 80 mg PO DAILY 06/12/21 10/05/21 History ergocalciferol (vitamin D2) 50,000 unit PO WEEKLY 06/12/21 10/05/21 History folic acid 1 mg PO DAILY 06/12/21 10/05/21 History gabapentin 200 mg PO TID 06/12/21 10/05/21 History promethazine 25 mg PO Q8H PRN 06/12/21 10/05/21 History venlafaxine 150 mg PO DAILY 06/12/21 10/05/21 History insulin glargine [Lantus U-100 20 units SUBCUT Q12HR #1 ml 06/15/21 10/05/21 Rx Insulin] insulin lispro 8 unit SUBCUT TIDWM #0 ml 06/15/21 10/05/21 Rx pantoprazole [Protonix] 40 mg PO BID #60 tablet 06/15/21 10/05/21 Rx sucralfate 1,000 mg PO ACHS #1000 ml 06/15/21 10/05/21 Rx Laboratory Tests 10/04/21 10/04/21 10/04/21 23:17 23:17 23:17 WBC 17.3 K/mm3 H K/mm3 (4.5-10.0) RBC 4.39 M/mm3 L M/mm3 (4.6-6.20) Hgb 9.8 g/dL L g/dL (14.0-18.0) Hct 33.9 % L % (42.0-52.0) MCV 77.2 fl L fl (80-100) MCH 22.3 pg L pg (26-34) MCHC 28.9 g/dl L g/dl (32-36) RDW 16.1 % H % (11.5-14.5) Plt Count 316 k/mm3 k/mm3 (150-375) MPV 10.1 fl fl (7.4-10.4) Immature Gran % (Auto) 0.3 % % (0-0.5) Neut % (Auto) 77.4 % H % (45.5-73.1) Lymph % (Auto) 14.9 % L % (18.3-44.2) [place] % (Auto) 6.9 % % (2.6-8.5) Eos % (Auto) 0.2 % % (0-4.4) Baso % (Auto) 0.3 % % (0.2-1.2) Lymph # (Auto) 2.58 K/mm3 K/mm3 (0.9-3.2) [place] # (Auto) 1.2 K/mm3 H K/mm3 (0.1-0.6) Eos # (Auto) 0.0 K/mm3 K/mm3 (0-0.3) Baso # (Auto) 0.1 K/mm3 K/mm3 (0.0-0.1) Abs Immat Gran (auto) 0.06 K/mm3 H K/mm3 (0.00-0.031) Absolute Neuts (auto) 13.4 K/mm3 H K/mm3 (1.3-6.7) Absolute Nucleated RBC 0.0 K/mm3 K/mm3 (0.0-0.012) Nucleated RBC % 0.0 % % (0.0-0.2) PT 13.4 Seconds Seconds (11.1-14.7) INR 1.1 APTT 31.9 SECONDS SECONDS (22.3-36.8) Puncture Site ABG pH ABG pCO2 ABG pO2 ABG PO2/FiO2 Ratio ABG HCO3 ABG O2 Saturation ABG O2 Content ABG Base Excess A-a Gradient Oxyhemoglobin Carboxyhemoglobin Methemoglobin Reduced Hemoglobin Total Hemoglobin O2 Delivery Device O2 Liters/Min FiO2 Sodium 137 mmol/L mmol/L (137-145) Potassium 3.1 mmol/L L mmol/L (3.4-5.0) Chloride 89 mmol/L L mmol/L (98-107) Carbon Dioxide 35 mmol/L H mmol/L (22-30) Anion Gap 13 mmol/L mmol/L (8-16) BUN 31 mg/dL H D mg/dL (9-20) Creatinine 1.80 mg/dL H mg/dL (0.7-1.3) Estim Creat Clear Calc Not Reportable Estimated GFR 46 L (59 - ) Glucose 397 mg/dL H mg/dL (65-110) POC Capillary Glucose Calcium 9.5 mg/dL mg/dL (8.4-10.2) Total Bilirubin 1.9 mg/dL H mg/dL
--- NOTE | 2021-10-05 09:22 | PM.IMHP ---
H&P: HPI History of Present Illness Date/Time: 10/05/21 09:22 Chief Complaint: hematemesis Narrative: Pt is a 66 yo male w/ hx of esophagitis, gastritis, upper GI bleed, anemia, GERD, HLD, CKD, DM, who presented to the ED last night for evaluation of hematemesis. Pt reports N/V which started 3 days ago. He developed coffee ground emesis the following day which progressed to a darker red yesterday. Pt states he had approximately 6 episodes of hematemesis. 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 He has not vomited since arrival to the hospital. ER note states reported diffuse abdominal pain, however patient denies this to me. He currently denies N/V/abd pain. Denies melena or hematochezia. No fever, chills, body aches. No cp, sob. Of note, he was hospitalized 4 months ago with a GI bleed. He states he was scheduled to have endoscopy later this month. On arrival his Hgb was noted to be 9.2, this morning was 8.8. GI was consulted from the ED and he is scheduled for endoscopy this afternoon. Pt is being admitted to observation in this setting. Review of Systems Review of Systems: General: Denies fevers, chills, bodyaches, or fatigue Eyes: Denies vision changes or eye pain ENT: Denies nasal congestion or sore throat Respiratory: Denies cough or shortness of breath Cardiovascular: Denies chest pain, palpitations, or lower extremity edema Gastrointestinal: Denies abdominal pain, +n/v/hematemesis Genitourinary: Denies dysuria or urinary frequency Musculoskeletal: Denies back pain or muscle aches Neurological: Denies headache, paraesthesias, or motor weakness Integumentary: Denies rash or other skin lesions Psychiatric: Denies SI/[facility] Past Medical History Medical History (Updated 10/05/21 @ 09:33 by Sherin Maxwell PA-C) Acute on chronic blood loss anemia Arthritis Benign prostatic hyperplasia Chronic kidney disease Cirrhosis Depression Diabetic peripheral neuropathy Dyslipidemia Erosive esophagitis Gastroesophageal reflux disease Hematemesis Hepatitis C Insulin dependent type 2 diabetes mellitus Tobacco abuse disorder UGIB (upper gastrointestinal bleed) Uncontrolled diabetes mellitus Social History Social History Social History: Surrogate decision maker: Mahnaz Christopher, spouse. Code status: Full code. Smoking packs per day: 1 Smoking cigarettes per day: 20.0 Years smoked: 40 Smoking pack-years: 40.00 Smoking status: Current every day smoker Tobacco type: cigarettes Second hand tobacco smoke exposure: Yes Additional smoking assessment comments: pt's spouse says pt smokes between 10 cigarettes and a pack daily Alcohol intake: never Substance use: never Substance use type: does not use Additional living arrangements comments: The patient lives with his in [place]. Additional occupation/education comments: Retired. Spiritual care concerns: No Meds Home Medications and Allergies Home Medications Medication Instructions Recorded Confirmed Type FreeStyle Jose J 14 Day Sensor 06/12/21 10/05/21 History aspirin 81 mg PO DAILY 06/12/21 10/05/21 History atorvastatin 80 mg PO DAILY 06/12/21 10/05/21 History ergocalciferol (vitamin D2) 50,000 unit PO WEEKLY 06/12/21 10/05/21 History folic acid 1 mg PO DAILY 06/12/21 10/05/21 History gabapentin 200 mg PO TID 06/12/21 10/05/21 History promethazine 25 mg PO Q8H PRN 06/12/21 10/05/21 History venlafaxine 150 mg PO DAILY 06/12/21 10/05/21 History insulin glargine [Lantus U-100 20 units SUBCUT Q12HR #1 ml 06/15/21 10/05/21 Rx Insulin] insulin lispro 8 unit SUBCUT TIDWM #0 ml 06/15/21 10/05/21 Rx pantoprazole [Protonix] 40 mg PO BID #60 tablet 06/15/21 10/05/21 Rx sucralfate 1,000 mg PO ACHS #1000 ml 06/15/21 10/05/21 Rx Allergies Allergy/AdvReac Type Severity Reaction Status Date / Time metformin Allergy Diarrhea
[2021-10-05 11:21] LABS: Glucose Point of Care 247 mg/dl (65-105)
[2021-10-05] MEDS: LACTATED RINGERS 1,000 ML 150 ML IV CONT (11:28)
--- NOTE | 2021-10-05 11:34 | WPDGICN ---
Assessment and Plan Assessment and plan (1) UGIB (upper gastrointestinal bleed): Code(s): K92.2 - Gastrointestinal hemorrhage, unspecified Status: Acute Assessment and Plan: he is npo status hb low but stable on iv protonix last EGD few months ago showed severe esophagitis, no varices given history of cirrhosis will proceed with egd, assess again if PHG or varices (2) Hematemesis: Code(s): K92.0 - Hematemesis Status: Acute Assessment and Plan: egd betty and more recommendations after scope (3) Acute on chronic blood loss anemia: Code(s): D62 - Acute posthemorrhagic anemia Status: Acute Assessment and Plan: continue to monitor (4) Uncontrolled diabetes mellitus: Code(s): E11.65 - Type 2 diabetes mellitus with hyperglycemia Status: Acute Assessment and Plan: on insulin, by primary team (5) SIRS (systemic inflammatory response syndrome): Code(s): R65.10 - Systemic inflammatory response syndrome (SIRS) of non-infectious origin without acute organ dysfunction Status: Acute (6) Cirrhosis: Code(s): K74.60 - Unspecified cirrhosis of liver Status: Acute Assessment and Plan: due to HCV but already treated he is seeing hepatology in [facility] (7) Leukocytosis (leucocytosis): Qualifiers: Leukocytosis type: unspecified Qualified Code(s): D72.829 - Elevated white blood cell count, unspecified Code(s): D72.829 - Elevated white blood cell count, unspecified Status: Acute Assessment and Plan: monitor (8) Acute hypokalemia: Code(s): E87.6 - Hypokalemia Status: Acute GI Consult Note Consult date/time: 10/05/21 11:34 Reason for consult: coffee ground emesis HPI: Jonathon Thurston Candi is a 66 year old male with history of hypertension, smoker, insulin-dependent diabetes, chronic anemia with hb 8-9 cirrhosis due to hepatitis-C but treated successfully about 2 years ago at [facility] and successfully eradicated per family (also seeing hepatology once a year with imaging of liver for benign nodule in liver ). I met him when he was admitted here on 05/2021 with hematemesis due to severe erosive esophagitis and also uncontrolled DM. He came to ER after new onset of coffee ground emesis aboutely 6 episodes. He was treated medically and now feeling better, hb 8.8, wbc 17k, plat 310, creat 1.8 (last time 1.3), inr 1.1, bikli 1.9, bun 32. CT scan a/p reviewed and showed moderate-sized sliding hiatal hernia. Review of Systems Constitutional: Constitutional: Denies chills Eyes: Eyes: Denies blurry vision ENT: Reports Normal hearing present Cardiovascular: Cardiovascular: Denies chest pain Respiratory: Respiratory: Denies cough Gastrointestinal: Gastrointestinal: Reports nausea and Reports vomiting Genitourinary: Genitourinary: Denies dysuria Musculoskeletal: Musculoskeletal: Denies neck pain Integumentary/Breasts: Skin/Breast: Denies rash Neurologic: Denies numbness Psychiatric: Psychiatric: Reports no additional psychiatric complaints [facility] Past Medical History Medical History (Updated 10/05/21 @ 09:33 by Sherin Maxwell PA-C) Acute on chronic blood loss anemia Arthritis Benign prostatic hyperplasia Chronic kidney disease Cirrhosis Depression Diabetic peripheral neuropathy Dyslipidemia Erosive esophagitis Gastroesophageal reflux disease Hematemesis Hepatitis C Insulin dependent type 2 diabetes mellitus Tobacco abuse disorder UGIB (upper gastrointestinal bleed) Uncontrolled diabetes mellitus Social History Social History Social History: Surrogate decision maker: Mahnaz Christopher, spouse. Code status: Full code. Smoking packs per day: 1 Smoking cigarettes per day: 20.0 Years smoked: 40 Smoking pack-years: 40.00 Smoking status: Current every day smoker Tobacco type: cigarettes Second hand tobacco smoke
[2021-10-05 15:11] LABS: Hematocrit 30.2 % (42.0-52.0); Hemoglobin 8.7 g/dL (14.0-18.0)
[2021-10-05 16:07] LABS: Glucose Point of Care 342 mg/dl (65-105)
[2021-10-05] MEDS: POTASSIUM CHLORIDE 20 MEQ TABLET 40 MEQ PO (16:30)
[2021-10-05] MEDS: SUCRALFATE SUSP 100 MG/ML 10 ML UDC 1000 MG PO ×2 (16:31→20:48)
[2021-10-05 20:22] LABS: Hematocrit 31.1 % (42.0-52.0); Hemoglobin 8.9 g/dL (14.0-18.0)
[2021-10-05] MEDS: PANTOPRAZOLE SODIUM IV 40 MG VIAL IV PUSH (20:48)
[2021-10-05] MEDS: SODIUM CHLORIDE 0.9% IV 1,000 ML 100 ML IV CONT (20:55)
[2021-10-06 02:14] VITALS: O2SAT 97
[2021-10-06 05:59] VITALS: BP 155/93; PULSE 72; RESP 18; TEMP 37.1; O2SAT 95
[2021-10-06 06:01] LABS: Basophils Absolute Auto 0.1 K/mm3 (0.0-0.1); Basophils Percent Auto 0.6 % (0.2-1.2); Eosinophils Absolute Auto 0.2 K/mm3 (0-0.3); Eosinophils Percent Auto 1.8 % (0-4.4); Hematocrit 27.3 % (42.0-52.0); Hemoglobin 8.2 g/dL (14.0-18.0); Immature Granulocyte Absolute 0.04 K/mm3 (0.00-0.031); Immature Granulocyte Percent A 0.4 % (0-0.5); Lymphocytes Absolute Auto 2.28 K/mm3 (0.9-3.2); Lymphocytes Percent Auto 25.3 % (18.3-44.2); Mean Corpuscular Hemoglobin 22.7 pg (26-34); Mean Corpuscular Volume 75.6 fl (80-100); Mean Platelet Volume 10.3 fl (7.4-10.4); Monocytes Absolute Auto 0.7 K/mm3 (0.1-0.6); Monocytes Percent Auto 8.2 % (2.6-8.5); Neutrophils Absolute Auto 5.7 K/mm3 (1.3-6.7); Neutrophils Percent Auto 63.7 % (45.5-73.1); Platelet Count Result 220 k/mm3 (150-375); Red Blood Count 3.61 M/mm3 (4.6-6.20); Red Cell Distribution Width 15.6 % (11.5-14.5)
[2021-10-06 06:27] LABS: Alanine Aminotransferase 14 U/L (4-50); Albumin Level 3.9 g/dL (3.5-5.1); Alkaline Phosphatase 62 U/L (38-126); Anion Gap 7 mmol/L (8-16); Aspartate Amino Transferase 25 U/L (17-59); Bilirubin,Total 1.4 mg/dL (0.2-1.3); Blood Urea Nitrogen 22 mg/dL (9-20); Calcium 8.1 mg/dL (8.4-10.2); Carbon Dioxide 37 mmol/L (22-30); Chloride 95 mmol/L (98-107); Estimated CRCL calculation 44 ml/min; Estimated Glomerular Filt Rate 53; Glucose 300 mg/dL (65-110); Potassium 2.4 mmol/L (3.4-5.0); Sodium 139 mmol/L (137-145)
[2021-10-06 06:54] LABS: Magnesium 1.2 mg/dL (1.6-2.3)
[2021-10-06 07:36] LABS: Glucose Point of Care 284 mg/dl (65-105)
[2021-10-06] MEDS: SODIUM CHLORIDE 0.9% IV 1,000 ML 100 ML IV CONT (08:06)
[2021-10-06] MEDS: POTASSIUM CHLORIDE 20 MEQ TABLET 40 MEQ PO ×2 (08:07→20:17)
[2021-10-06] MEDS: MAGNESIUM SULF 2 GM/WATER 50ML 2 GM/50 ML BAG IVPB (08:09)
[2021-10-06] MEDS: INSULIN ASPART (*BKC) 100 UNITS/ML SUB-Q ×3 (08:17→16:53)
[2021-10-06] MEDS: PANTOPRAZOLE SODIUM IV 40 MG VIAL IV PUSH ×2 (08:20→20:17)
[2021-10-06] MEDS: POTASSIUM CHLORIDE INJ 40 MEQ in SODIUM CHLORIDE 0.9% IV 500 ML 130 MEQ IVPB (08:27)
[2021-10-06 08:29] VITALS: O2SAT 96
--- NOTE | 2021-10-06 09:10 | PM.IMPN ---
Progress Note: A&P Assessment and Plan (1) Hematemesis: Qualifiers: Nausea presence: with nausea Qualified Code(s): K92.0 - Hematemesis Code(s): K92.0 - Hematemesis Status: Acute Assessment and Plan: -hx of gastritis, esophagitis, hospitalized 05/2021 for upper GI bleed -hgb now trending downward from 8.9 yesterday to 8.2 today. Will continue to monitor with AM labs. - EGD found Erosive Gastritis. Will treat with recommendations of GI (2) Erosive esophagitis: Code(s): K22.10 - Ulcer of esophagus without bleeding Status: Acute Assessment and Plan: - Continue PPI BID and Carafate. - [place] diet as tolerated. (3) Acute on chronic blood loss anemia: Code(s): D62 - Acute posthemorrhagic anemia Status: Acute Assessment and Plan: -As noted in Problem #1, trending down today, will recheck in AM. 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 is no longer NPO. (6) Chronic kidney disease: Qualifiers: Chronic kidney disease stage: stage 2 (mild) Qualified Code(s): N18.2 - Chronic kidney disease, stage 2 (mild) Code(s): N18.9 - Chronic kidney disease, unspecified Status: Inactive Assessment and Plan: -baseline appears to be around 1.3/1.3 -1.8 on admission, looks like during previous hospitalization for similar complaint he was up to 2.3 -likely due to dehydration/pre renal -I do not see any nephrotoxic agents on his med list -he is receiving IVF currently as he is NPO, will continue to monitor this closely - Above baseline creatinine today at 1.6. (7) Acute hypokalemia: Code(s): E87.6 - Hypokalemia Status: Acute Assessment and Plan: - Persistent. Pt's Potassium today is 2.4. - He is given 40 mEq po and a 40 mEq K+ Dave for correction and will recheck in AM. - Monitor for any diarrhea or vomiting that could cause insensible loss of potassium. - magnesium also checked to be low and will be replaced. (8) Hypomagnesemia: Code(s): E83.42 - Hypomagnesemia Status: Acute Assessment and Plan: - Magnesium today is 1.2. 2Gram Mag rider ordered. - Will recheck labs in AM. Subjective Date/time seen: 10/06/21 09:10 This pt. is examined at the bedside in interval assessment this AM. He had EGD yesterday and was diagnosed with Esophagitis. He has been started on IV protonix while here, and Carafate. There was no actual bleeding, however, it was identified that he has erosive esophagitis and was the likely cause of his hematemesis. He has had his diet advanced and he is tolerating it without difficulty. He has no complaints of abdominal pain, N/V/D and he has no overt bleeding. Hgb yesterday prior to procedure was 8.9. This AM it is 8.2 in conjunction with also hypokalemia and hypomagnesemia. Pt. will be kept today for replacement of Potassium and magnesium and also for re-evaluation of Hgb in AM. Review of Systems Review of Systems: A 12 point ROS is performed and is otherwise negative with exception of what is noted in HPI. All systems reviewed & are unremarkable except as noted in HPI and below Exam Narrative: General: No acute distress, chronically ill appearing Eyes: christa VIRAMONETS
--- NOTE | 2021-10-06 10:10 | WPDANESPN ---
Anes - Prog Note Post-Op Date/Time: 10/06/21 10:10 Cardiovascular status: normal Respiratory status: normal Airway patency: baseline Mental status: baseline Post-Op hydration status: normal Vital Signs: Last Vital Signs Temp 37.1 C 10/06/21 05:59 Pulse 72 10/06/21 05:59 Resp 18 10/06/21 05:59 BP 155/93 H 10/06/21 05:59 Pulse Ox 96 10/06/21 08:29 Pain Score (VAS): 0 I/O: Intake & Output 10/05/21 10/06/21 10/06/21 23:59 07:59 15:59 Intake Total 2100 1450 120 Output Total 100 400 Balance 2000 1450 -280 Laboratory Tests 10/06/21 05:26 10/06/21 05:26 10/05/21 10/05/21 10/05/21 11:17 15:05 16:03 WBC RBC Hgb 8.7 L Hct 30.2 L MCV MCH MCHC RDW Plt Count MPV Immature Gran % (Auto) Neut % (Auto) Lymph % (Auto) Reynolds % (Auto) Eos % (Auto) Baso % (Auto) Lymph # (Auto) Reynolds # (Auto) Eos # (Auto) Baso # (Auto) Abs Immat Gran (auto) Absolute Neuts (auto) Absolute Nucleated RBC Nucleated RBC % Sodium Potassium Chloride Carbon Dioxide Anion Gap BUN Creatinine Estim Creat Clear Calc Estimated GFR Glucose POC Capillary Glucose 247 H 342 H Calcium Magnesium Total Bilirubin AST ALT Alkaline Phosphatase Total Protein Albumin 10/05/21 10/06/21 10/06/21 20:12 05:26 05:26 WBC 9.0 RBC 3.61 L Hgb 8.9 L 8.2 L Hct 31.1 L 27.3 L MCV 75.6 L MCH 22.7 L MCHC 30.0 L RDW 15.6 H Plt Count 220 MPV 10.3 Immature Gran % (Auto) 0.4 Neut % (Auto) 63.7 Lymph % (Auto) 25.3 Reynolds % (Auto) 8.2 Eos % (Auto) 1.8 Baso % (Auto) 0.6 Lymph # (Auto) 2.28 Reynolds # (Auto) 0.7 H Eos # (Auto) 0.2 Baso # (Auto) 0.1 Abs Immat Gran (auto) 0.04 H Absolute Neuts (auto) 5.7 Absolute Nucleated RBC 0.0 Nucleated RBC % 0.0 Sodium 139 Potassium 2.4 L* Chloride 95 L Carbon Dioxide 37 H Anion Gap 7 L BUN 22 H Creatinine 1.60 H Estim Creat Clear Calc 44 Estimated GFR 53 L Glucose 300 H POC Capillary Glucose Calcium 8.1 L Magnesium Total Bilirubin 1.4 H AST 25 ALT 14 Alkaline Phosphatase 62 Total Protein 7.0 Albumin 3.9 10/06/21 10/06/21 05:26 07:30 WBC RBC Hgb Hct MCV MCH MCHC RDW Plt Count MPV Immature Gran % (Auto) Neut % (Auto) Lymph % (Auto) Reynolds % (Auto) Eos % (Auto) Baso % (Auto) Lymph # (Auto) Reynolds # (Auto) Eos # (Auto) Baso # (Auto) Abs Immat Gran (auto) Absolute Neuts (auto) Absolute Nucleated RBC Nucleated RBC % Sodium Potassium Chloride Carbon Dioxide Anion Gap BUN Creatinine Estim Creat Clear Calc Estimated GFR Glucose POC Capillary Glucose 284 H Calcium Magnesium 1.2 L Total Bilirubin AST ALT Alkaline Phosphatase Total Protein Albumin Post-procedural complaints: none Patient Feedback: Patient satisfied with anesthetic care.
[2021-10-06 11:22] LABS: Glucose Point of Care 330 mg/dl (65-105)
[2021-10-06] MEDS: SUCRALFATE SUSP 100 MG/ML 10 ML UDC 1000 MG PO ×3 (11:42→20:17)
[2021-10-06] MEDS: INSULIN GLARGINE (*BKC) 100 UNITS/ML 20 UNITS SUB-Q ×2 (11:42→20:15)
--- NOTE | 2021-10-06 12:53 | WPDGIPROGNO ---
Progress Note: A&P Assessment and Plan (1) Erosive esophagitis: Code(s): K22.10 - Ulcer of esophagus without bleeding Status: Acute Assessment and Plan: egd yesterday with mod-severe erosive esophagitis as cause of coffee ground emesis but no more bleeding hb low but stable he will need longterm protonix bid, now also on carafate will advance diet and probably he can go home tomorrow after lytes improved egd in 6 months to assess healing of esophagitis (2) UGIB (upper gastrointestinal bleed): Code(s): K92.2 - Gastrointestinal hemorrhage, unspecified Status: Acute Assessment and Plan: resolved (3) Uncontrolled diabetes mellitus: Code(s): E11.65 - Type 2 diabetes mellitus with hyperglycemia Status: Acute (4) Hypomagnesemia: Code(s): E83.42 - Hypomagnesemia Status: Acute Assessment and Plan: treated (5) Cirrhosis: Code(s): K74.60 - Unspecified cirrhosis of liver Status: Acute Assessment and Plan: previous HCV already treated he is seeing hepatology in [facility] Subjective Date/time seen: 10/06/21 12:53 Interval history: he is doing ok, no abdominal pain or nausea. He is resting and tolerated liquid diet. Review of Systems Review of Systems: All systems reviewed & are unremarkable except as noted in HPI and below Exam Const: General: comfortable and no acute distress HENMT: General nose exam: Normal nares present Eyes: General: appearance normal, both eyes and all related structures Neck: Neck: no JVD Resp: Auscultation: clear to auscultation bilaterally Cardio: Rate: regular rate Rhythm: regular rhythm GI: Inspection: non-distended GI Palp: Yes Soft to palpation and No Guarding due to palpation present (GI) Auscultation: normal bowel sounds Skin: General skin exam: normal color Neuro: General: gait normal Speech: normal speech Extrem: General: normal to inspection Psych: Mental Status: mental status grossly normal Objective Data Vital Signs Vital Signs: Vital Signs - 24 hr 10/05/21 16:00 10/05/21 16:01 10/05/21 21:57 Temperature 97.3 F L Pulse Rate 63 75 Respiratory Rate 18 Blood Pressure 172/85 H Pulse Oximetry 96 98 10/06/21 02:14 10/06/21 05:59 10/06/21 08:29 Temperature 98.7 F Pulse Rate 72 Respiratory Rate 18 Blood Pressure 155/93 H Pulse Oximetry 97 95 96 Intake/Output Intake/Output: Intake & Output 10/03/21 10/04/21 10/05/21 10/06/21 23:59 23:59 23:59 23:59 Intake Total 3370.3 1570 Output Total 500 400 Balance 2870.3 1170 Meds/Results Medications: Active Medications Generic Name Dose Route Start Last Admin Trade Name Freq PRN Reason Stop Dose Admin Dextrose 12.5 gm 10/05/21 07:02 Dextrose 50% 25 Gm/50 Ml Syringe IV PUSH PRN PRN Hypoglycemia Protocol Glucagon 1 mg 10/05/21 07:02 Glucagon For Inj 1 Mg Vial IM PRN PRN Hypoglycemia Protocol Glucose 15 gm 10/05/21 07:02 Glucose Oral Gel 15 Gm Of Glucse In 37.5 Gm Tube PO PRN PRN Hypoglycemia Protocol Sodium Chloride 1,000 mls @ 100 mls/hr 10/05/21 02:40 10/06/21 08:06 Normal Saline Iv IV CONT 100 mls/hr .Q10H JOHANNE Administration Dextrose 1,000 mls @ 100 mls/hr 10/05/21 07:02 Dextrose 5% 1,000 Ml IVPB PRN PRN Hypoglycemia Protocol Insulin Aspart 3 - 6 units 10/05/21 08:00 10/06/21 11:43 Insulin Aspart (*Bkc) 100 Units/Ml SUB-Q 5 units TIDWM JOHANNE Administration Protocol Insulin Glargine 20 units 10/06/21 09:25 10/06/21 11:42 Insulin Glargine (*Bkc) 100 Units/Ml SUB-Q 20 units Q12HR JOHANNE Administration Ondansetron HCl 4 mg 10/05/21 02:36 10/05/21 20:58 Ondansetron Inj 4 Mg/2 Ml Vial IV PUSH 4 mg Q4H PRN Administration Nausea Pantoprazole Sodium 40 mg 10/05/21 21:00 10/06/21 08:20 Pantoprazole Sodium Iv 40 Mg Vial IV PUSH 40 mg Q12HR JOHANNE Administrat
[2021-10-06 14:00] VITALS: BP 164/82; PULSE 70; RESP 18; TEMP 36.2; O2SAT 98
[2021-10-06 14:06] LABS: Anion Gap 8 mmol/L (8-16); Blood Urea Nitrogen 19 mg/dL (9-20); Calcium 8.4 mg/dL (8.4-10.2); Carbon Dioxide 33 mmol/L (22-30); Chloride 96 mmol/L (98-107); Estimated CRCL calculation 51 ml/min; Estimated Glomerular Filt Rate > 60; Glucose 348 mg/dL (65-110); Magnesium 1.9 mg/dL (1.6-2.3); Potassium 2.8 mmol/L (3.4-5.0); Sodium 137 mmol/L (137-145)
[2021-10-06 16:27] LABS: Glucose Point of Care 276 mg/dl (65-105)
[2021-10-06] MEDS: ONDANSETRON INJ 4 MG/2 ML VIAL IV PUSH (16:48)
[2021-10-06 20:12] LABS: Glucose Point of Care 250 mg/dl (65-105)
[2021-10-06 22:00] VITALS: BP 167/71; PULSE 64; RESP 18; TEMP 36.6; O2SAT 100
[2021-10-06 22:28] VITALS: O2SAT 99
[2021-10-07] MEDS: SODIUM CHLORIDE 0.9% IV 1,000 ML 100 ML IV CONT ×2 (05:14→08:50)
[2021-10-07 05:39] VITALS: BP 166/86; PULSE 66; RESP 18; TEMP 36.6; O2SAT 100
[2021-10-07] MEDS: SUCRALFATE SUSP 100 MG/ML 10 ML UDC 1000 MG PO ×4 (06:03→20:42)
[2021-10-07 06:19] LABS: Basophils Absolute Auto 0.1 K/mm3 (0.0-0.1); Basophils Percent Auto 0.6 % (0.2-1.2); Eosinophils Absolute Auto 0.3 K/mm3 (0-0.3); Eosinophils Percent Auto 3.3 % (0-4.4); Hematocrit 28.1 % (42.0-52.0); Hemoglobin 8.4 g/dL (14.0-18.0); Immature Granulocyte Absolute 0.02 K/mm3 (0.00-0.031); Immature Granulocyte Percent A 0.2 % (0-0.5); Lymphocytes Absolute Auto 2.31 K/mm3 (0.9-3.2); Lymphocytes Percent Auto 27.2 % (18.3-44.2); Mean Corpuscular HGB Conc 29.9 g/dl (32-36); Mean Corpuscular Volume 76.8 fl (80-100); Mean Platelet Volume 10.2 fl (7.4-10.4); Monocytes Absolute Auto 0.6 K/mm3 (0.1-0.6); Monocytes Percent Auto 7.5 % (2.6-8.5); Neutrophils Absolute Auto 5.2 K/mm3 (1.3-6.7); Neutrophils Percent Auto 61.2 % (45.5-73.1); Platelet Count Result 221 k/mm3 (150-375); Red Blood Count 3.66 M/mm3 (4.6-6.20); Red Cell Distribution Width 15.6 % (11.5-14.5); White Blood Count 8.5 K/mm3 (4.5-10.0)
[2021-10-07 06:33] LABS: Alanine Aminotransferase 14 U/L (4-50); Albumin Level 3.9 g/dL (3.5-5.1); Alkaline Phosphatase 61 U/L (38-126); Anion Gap 9 mmol/L (8-16); Aspartate Amino Transferase 25 U/L (17-59); Bilirubin,Total 1.2 mg/dL (0.2-1.3); Blood Urea Nitrogen 14 mg/dL (9-20); Calcium 8.1 mg/dL (8.4-10.2); Carbon Dioxide 32 mmol/L (22-30); Chloride 99 mmol/L (98-107); Estimated CRCL calculation 54 ml/min; Estimated Glomerular Filt Rate > 60; Glucose 202 mg/dL (65-110); Magnesium 1.7 mg/dL (1.6-2.3); Potassium 2.7 mmol/L (3.4-5.0); Sodium 140 mmol/L (137-145)
[2021-10-07 07:32] LABS: Glucose Point of Care 217 mg/dl (65-105)
[2021-10-07 08:00] VITALS: PULSE 66; RESP 18; O2SAT 100
[2021-10-07] MEDS: POTASSIUM CHLORIDE 20 MEQ TABLET 60 MEQ PO (08:18)
[2021-10-07] MEDS: PANTOPRAZOLE SODIUM IV 40 MG VIAL IV PUSH ×2 (08:19→20:42)
[2021-10-07] MEDS: INSULIN GLARGINE (*BKC) 100 UNITS/ML 20 UNITS SUB-Q ×2 (08:20→20:42)
[2021-10-07] MEDS: INSULIN ASPART (*BKC) 100 UNITS/ML SUB-Q ×3 (08:24→16:59)
--- NOTE | 2021-10-07 08:39 | PC.NURSE ---
Sima pt provider informed that pt refusing IV K today, pt took 60meq po potassium.
[2021-10-07 11:33] LABS: Glucose Point of Care 218 mg/dl (65-105)
[2021-10-07 12:25] LABS: Anion Gap 8 mmol/L (8-16); Blood Urea Nitrogen 14 mg/dL (9-20); Calcium 8.4 mg/dL (8.4-10.2); Carbon Dioxide 30 mmol/L (22-30); Chloride 100 mmol/L (98-107); Estimated CRCL calculation 59 ml/min; Estimated Glomerular Filt Rate > 60; Glucose 224 mg/dL (65-110); Potassium 3.2 mmol/L (3.4-5.0); Sodium 138 mmol/L (137-145)
--- NOTE | 2021-10-07 13:16 | WPDGIPROGNO ---
Progress Note: A&P Assessment and Plan (1) Erosive esophagitis: Code(s): K22.10 - Ulcer of esophagus without bleeding Status: Acute Assessment and Plan: egd on admission showed mod-severe erosive esophagitis as cause of coffee ground emesis but no more bleeding hb low but stable, denies any more n/v he will need correction protonix bid, also on carafate tolerating diet and he can go home by GI standpoint will schedule egd in 6 months to assess healing of esophagitis (2) UGIB (upper gastrointestinal bleed): Code(s): K92.2 - Gastrointestinal hemorrhage, unspecified Status: Acute Assessment and Plan: resolved (3) Uncontrolled diabetes mellitus: Code(s): E11.65 - Type 2 diabetes mellitus with hyperglycemia Status: Acute Assessment and Plan: by primary team (4) Hypomagnesemia: Code(s): E83.42 - Hypomagnesemia Status: Acute Assessment and Plan: treated (5) Cirrhosis: Code(s): K74.60 - Unspecified cirrhosis of liver Status: Acute Assessment and Plan: previous HCV already treated he is seeing hepatology in [facility] Subjective Date/time seen: 10/07/21 13:16 Interval history: tolerating diet and no more nausea, doing well. is at bedside. Review of Systems Review of Systems: All systems reviewed & are unremarkable except as noted in HPI and below Exam Const: General: comfortable and no acute distress HENMT: General nose exam: Normal nares present Eyes: General: appearance normal, both eyes and all related structures Neck: Neck: no JVD Resp: Auscultation: clear to auscultation bilaterally Cardio: Rate: regular rate Rhythm: regular rhythm GI: Inspection: non-distended GI Palp: Yes Soft to palpation and No Guarding due to palpation present (GI) Auscultation: normal bowel sounds Skin: General skin exam: normal color Neuro: General: gait normal Speech: normal speech Extrem: General: normal to inspection Psych: Mental Status: mental status grossly normal Objective Data Vital Signs Vital Signs: Vital Signs - 24 hr 10/06/21 14:00 10/06/21 22:00 10/06/21 22:28 Temperature 97.1 F L 97.9 F Pulse Rate 70 64 Respiratory Rate 18 18 Blood Pressure 164/82 H 167/71 H Pulse Oximetry 98 100 99 10/07/21 05:39 10/07/21 08:00 Temperature 97.8 F Pulse Rate 66 66 Respiratory Rate 18 18 Blood Pressure 166/86 H Pulse Oximetry 100 100 Intake/Output Intake/Output: Intake & Output 10/04/21 10/05/21 10/06/21 10/07/21 23:59 23:59 23:59 23:59 Intake Total 3370.3 3550 436 Output Total 500 1050 600 Balance 2870.3 2500 -164 Meds/Results Medications: Active Medications Generic Name Dose Route Start Last Admin Trade Name Freq PRN Reason Stop Dose Admin Dextrose 12.5 gm 10/05/21 07:02 Dextrose 50% 25 Gm/50 Ml Syringe IV PUSH PRN PRN Hypoglycemia Protocol Glucagon 1 mg 10/05/21 07:02 Glucagon For Inj 1 Mg Vial IM PRN PRN Hypoglycemia Protocol Glucose 15 gm 10/05/21 07:02 Glucose Oral Gel 15 Gm Of Glucse In 37.5 Gm Tube PO PRN PRN Hypoglycemia Protocol Dextrose 1,000 mls @ 100 mls/hr 10/05/21 07:02 Dextrose 5% 1,000 Ml IVPB PRN PRN Hypoglycemia Protocol Sodium Chloride 1,000 mls @ 100 mls/hr 10/07/21 08:50 10/07/21 08:50 Normal Saline Iv IV CONT 100 mls/hr .Q10H JOHANNE Administration Insulin Aspart 3 - 6 units 10/05/21 08:00 10/07/21 12:17 Insulin Aspart (*Bkc) 100 Units/Ml SUB-Q 3 units TIDWM JOHANNE Administration Protocol Insulin Glargine 20 units 10/06/21 09:25 10/07/21 08:20 Insulin Glargine (*Bkc) 100 Units/Ml SUB-Q 20 units Q12HR JOHANNE Administration Ondansetron HCl 4 mg 10/05/21 02:36 10/06/21 16:48 Ondansetron Inj 4 Mg/2 Ml Vial IV PUSH 4 mg Q4H PRN Administration Nausea Pantoprazole Sodium 40 mg 10/05/21 21:00 10/07/21 08:19 Pantoprazole Sodium Iv 4
--- NOTE | 2021-10-07 13:16 | PM.IMPN ---
Progress Note: A&P Assessment and Plan (1) Hematemesis: Qualifiers: Nausea presence: with nausea Qualified Code(s): K92.0 - Hematemesis Code(s): K92.0 - Hematemesis Status: Acute Assessment and Plan: -hx of gastritis, esophagitis, hospitalized 05/2021 for upper GI bleed -hgb now trending downward from 8.9 yesterday to 8.2 today. Will continue to monitor with AM labs. - EGD found Erosive Gastritis. 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 - Reschedule EGD in 6 months. - GI signed off. (2) Erosive esophagitis: Code(s): K22.10 - Ulcer of esophagus without bleeding Status: Acute Assessment and Plan: - Continue PPI BID and Carafate. - [place] diet as tolerated. (3) Acute on chronic blood loss anemia: Code(s): D62 - Acute posthemorrhagic anemia Status: Acute Assessment and Plan: -Stable at 8.4. 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 is no longer NPO. (6) Chronic kidney disease: Qualifiers: Chronic kidney disease stage: stage 2 (mild) Qualified Code(s): N18.2 - Chronic kidney disease, stage 2 (mild) Code(s): N18.9 - Chronic kidney disease, unspecified Status: Inactive Assessment and Plan: -baseline appears to be around 1.3/1.3 -1.8 on admission, looks like during previous hospitalization for similar complaint he was up to 2.3 -likely due to dehydration/pre renal -I do not see any nephrotoxic agents on his med list -he is receiving IVF currently as he is NPO, will continue to monitor this closely - Normal Creatinine today at 1.2. (7) Acute hypokalemia: Code(s): E87.6 - Hypokalemia Status: Acute Assessment and Plan: - Persistent. Pt's Potassium today is 2.7 despite the 80 mEq that was given yesterday. It is repeated today and will be rechecked in the AM. - Monitor for any diarrhea or vomiting that could cause insensible loss of potassium. Pt. tells me today that prior to coming into the hospital, that he had taken a few laxatives to help him have a BM. Pt. with 3 BM's overnight. (8) Hypomagnesemia: Code(s): E83.42 - Hypomagnesemia Status: Resolved Assessment and Plan: - Resolved today at 1.7. Time Spent With Patient Time with patient: 15 - 25 minutes Subjective Date/time seen: 10/07/21914 This pt. was examined at the bedside in interval assessment. He is asymptomatic, but the pt's potassium continues to be low at 2.7 despite the amount that he received yesterday. He was educated on the importance of Potassium in the body for his heart to function appropriately. He verbalizes understanding. He denies any CP, palpitations, Dyspnea, N/V/diaphoresis Review of Systems Review of Systems: A 12 point ROS was performed and is otherwise negative with exception of what is noted in the HPI. All systems reviewed & are unremarkable except as noted in HPI and below Exam Narrative: General: No acute distress, chronically ill appearing Eyes: PERRL, slight scleral icterus HEENT: NCAT, external ears normal, dry mucous membranes, poor dentition Respiratory: No respiratory distress, Lungs CTA bilaterally, no wheezing Cardiovascular:
[2021-10-07 14:00] VITALS: BP 141/70; PULSE 70; RESP 22; TEMP 36.2; O2SAT 100
[2021-10-07 16:41] LABS: Glucose Point of Care 245 mg/dl (65-105)
[2021-10-07] MEDS: POTASSIUM CHLORIDE 20 MEQ PACKET (FOR LIQUID) PO (20:42)
[2021-10-07 20:53] LABS: Glucose Point of Care 200 mg/dl (65-105)
[2021-10-07 22:00] VITALS: BP 175/98; PULSE 61; RESP 16; TEMP 36.6; O2SAT 100
[2021-10-08 05:55] VITALS: BP 164/86; PULSE 67; RESP 16; TEMP 36.4; O2SAT 98
[2021-10-08 06:24] LABS: Basophils Absolute Auto 0.1 K/mm3 (0.0-0.1); Basophils Percent Auto 0.8 % (0.2-1.2); Eosinophils Absolute Auto 0.3 K/mm3 (0-0.3); Eosinophils Percent Auto 3.3 % (0-4.4); Hematocrit 30.4 % (42.0-52.0); Hemoglobin 8.7 g/dL (14.0-18.0); Immature Granulocyte Absolute 0.02 K/mm3 (0.00-0.031); Immature Granulocyte Percent A 0.2 % (0-0.5); Lymphocytes Absolute Auto 2.14 K/mm3 (0.9-3.2); Lymphocytes Percent Auto 25.2 % (18.3-44.2); Mean Corpuscular HGB Conc 28.6 g/dl (32-36); Mean Corpuscular Hemoglobin 22.5 pg (26-34); Mean Corpuscular Volume 78.8 fl (80-100); Mean Platelet Volume 9.9 fl (7.4-10.4); Monocytes Absolute Auto 0.6 K/mm3 (0.1-0.6); Monocytes Percent Auto 7.3 % (2.6-8.5); Neutrophils Absolute Auto 5.4 K/mm3 (1.3-6.7); Neutrophils Percent Auto 63.2 % (45.5-73.1); Platelet Count Result 223 k/mm3 (150-375); Red Blood Count 3.86 M/mm3 (4.6-6.20); Red Cell Distribution Width 16.3 % (11.5-14.5); White Blood Count 8.5 K/mm3 (4.5-10.0)
[2021-10-08 06:35] LABS: Alanine Aminotransferase 14 U/L (4-50); Albumin Level 4.1 g/dL (3.5-5.1); Alkaline Phosphatase 60 U/L (38-126); Anion Gap 7 mmol/L (8-16); Aspartate Amino Transferase 21 U/L (17-59); Blood Urea Nitrogen 11 mg/dL (9-20); Calcium 8.3 mg/dL (8.4-10.2); Carbon Dioxide 29 mmol/L (22-30); Chloride 103 mmol/L (98-107); Estimated CRCL calculation 59 ml/min; Estimated Glomerular Filt Rate > 60; Glucose 143 mg/dL (65-110); Magnesium 1.6 mg/dL (1.6-2.3); Sodium 139 mmol/L (137-145)
[2021-10-08 07:06] LABS: Platelet Estimate Adequate (Adequate)
[2021-10-08 07:08] LABS: Acanthocytes 1+ (NORMAL); Anisocytosis 1+ (NORMAL); Ovalocytes 1+ (NORMAL); Tear Drop Cells 1+ (NORMAL)
[2021-10-08 07:20] LABS: Glucose Point of Care 189 mg/dl (65-105)
[2021-10-08] MEDS: PANTOPRAZOLE SODIUM IV 40 MG VIAL IV PUSH (09:29)
[2021-10-08] MEDS: POTASSIUM CHLORIDE 20 MEQ TABLET 60 MEQ PO (09:30)
[2021-10-08] MEDS: INSULIN GLARGINE (*BKC) 100 UNITS/ML 20 UNITS SUB-Q (09:30)
--- NOTE | 2021-10-08 09:36 | PM.DS ---
DS: Admitting Diagnosis Discharge Date 10/08/2021 Admitting Diagnosis 1) Hematemesis 2) Erosive Esophagitis 3) Acute on chronic blood loss anemia DS: Discharge Diagnosis Discharge Diagnosis (1) Hematemesis: Qualifiers: Nausea presence: with nausea Qualified Code(s): K92.0 - Hematemesis Code(s): K92.0 - Hematemesis Status: Acute Assessment and Plan: -hx of gastritis, esophagitis, hospitalized 05/2021 for upper GI bleed, with current hospitalization for recurrent Hematemesis. - Hgb stable at 8.7 and holding without further declining. - EGD on 10/05/21 found Erosive Gastritis. 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 - Reschedule EGD in 6 months. - GI signed off. (2) Erosive esophagitis: Code(s): K22.10 - Ulcer of esophagus without bleeding Status: Acute Assessment and Plan: - Continue PPI BID and Carafate. - [place] diet as tolerated. (3) Acute on chronic blood loss anemia: Code(s): D62 - Acute posthemorrhagic anemia Status: Acute Assessment and Plan: -Stable without further decline and no overt bleeding and no further vomiting. - Suggest pt. have repeat CBC in one weeks time if remains asymptomatic of any overt bleeding. 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 Will recommend SSI dosing at home. (6) Acute hypokalemia: Code(s): E87.6 - Hypokalemia Status: Acute Assessment and Plan: - Persistent Hypokalemia despite large doses of Potassium to supplement. Pt. tells me today that prior to coming into the hospital, that he had taken a few laxatives to help him have a BM. Pt. has been having as many as three BM's in one day while here. - BM's have declined and Potassium is now trending upward. today at 3.0 after he received 120 mEq yesterday, (40 IV and 80 po) Will receive 60 mEq po today and will redose with 60 mEq tomorrow and refer to PCP for further management and recheck of BMP on Sunday. (7) Hypomagnesemia: Code(s): E83.42 - Hypomagnesemia Status: Resolved Assessment and Plan: - Resolved DS: Summary Hospital Course Reason for hospitalization: Hematemesis Hospital Course: This 66 year old male patient with significant PMH of Esophagitis, gastritis, Upper GI bleed, anemia, GERD, HLD, CKD, DM who presented to the ER on 10/05/21 with complaints of having acute Hematemesis after having a three day prodrome of nausea and vomiting. His emesis had coffee ground emesis in it. Of note, pt. had a similar course in 07/2021 and was diagnosed with esophagitis then too. In the ED, the pt. was given Carafate and Anti-emetics with relief of his symptoms. He had acute abdominal pain on arrival and this too has resolved. Pt. underwent EGD on 10/05/21 where they found Erosive Esophagitis and recommendations of GI service is to continue penitentiary BID dosing of PPI and also continue Carafate. They also want a repeat EGD in 6 months. Pt. has remained anemic while here, although stable. He has not required any transfusion. The only complication that pt. has had while here was a very hard to treat Hypokalemia. He endorsed that he had been constipated at home and had taken several OTC laxatives to help him go, and in doing so, he had an incre
[2021-10-08 11:23] LABS: Glucose Point of Care 299 mg/dl (65-105)
== END 2021-10-08 11:55 | disposition home or self-care (01) ==
LOC: ANHED 10-05 02:40 → ANH3MEDSUR 10-05 03:00
PROVIDERS: Internal Medicine Gastroenterology; Physician Assistant; Admitting Provider Internal Medicine; Emergency Provider General Practice; PCP Internal Medicine; Visit Provider Nurse Practitioner Adult Health
PROC: 0DJ08ZZ Inspection of Upper Intestinal Tract, Via Natural or Artificial Opening Endoscopic (ICD-10-PCS; CPT 43235; principal; 2021-10-05 12:30)
DX: K22.10 Ulcer of esophagus without bleeding (principal); K21.00 Gastro-esophageal reflux disease with esophagitis, without bleeding; K92.0 Hematemesis; D62 Acute posthemorrhagic anemia; E83.42 Hypomagnesemia; E87.6 Hypokalemia; E86.0 Dehydration; D72.829 Elevated white blood cell count, unspecified; K44.9 Diaphragmatic hernia without obstruction or gangrene; K74.60 Unspecified cirrhosis of liver; N18.2 Chronic kidney disease, stage 2 (mild); E11.22 Type 2 diabetes mellitus with diabetic chronic kidney disease; E11.42 Type 2 diabetes mellitus with diabetic polyneuropathy; E11.65 Type 2 diabetes mellitus with hyperglycemia; E78.5 Hyperlipidemia, unspecified; N40.0 Benign prostatic hyperplasia without lower urinary tract symptoms; M19.90 Unspecified osteoarthritis, unspecified site; R65.10 Systemic inflammatory response syndrome (SIRS) of non-infectious origin without acute organ dysfunction; F17.210 Nicotine dependence, cigarettes, uncomplicated; F32.A Depression, unspecified; Z86.19 Personal history of other infectious and parasitic diseases; Z79.4 Long term (current) use of insulin
CPT/HCPCS: 43235; 36415; 36600; 71045; 74177; 80048; 80053; 82375; 82805; 82948; 83050; 83690; 83735; 85014; 85018; 85025; 85610; 85730; 86850; 86900; 86901; 93005; 96361; 96365; 96366; 96368; 96375; 96376; 97110; 97116; 97161; 97165; 99285; A9270; C9113; G0378; J1815; J2405; J2704; J3475; J3480; J7030; J7040; J7060; J7120; Q9967

== ENCOUNTER 2021-10-10 11:09 | Outpatient (CLI) | payer MEDICARE, SELFPAY ==
[2021-10-10 11:43] LABS: Basophils Absolute Auto 0.1 K/mm3 (0.0-0.1); Basophils Percent Auto 0.5 % (0.2-1.2); Eosinophils Absolute Auto 0.3 K/mm3 (0-0.3); Eosinophils Percent Auto 3.2 % (0-4.4); Hematocrit 29.9 % (42.0-52.0); Hemoglobin 8.8 g/dL (14.0-18.0); Immature Granulocyte Absolute 0.04 K/mm3 (0.00-0.031); Immature Granulocyte Percent A 0.4 % (0-0.5); Lymphocytes Absolute Auto 2.51 K/mm3 (0.9-3.2); Lymphocytes Percent Auto 27.2 % (18.3-44.2); Mean Corpuscular HGB Conc 29.4 g/dl (32-36); Mean Corpuscular Hemoglobin 23.1 pg (26-34); Mean Corpuscular Volume 78.5 fl (80-100); Mean Platelet Volume 9.9 fl (7.4-10.4); Monocytes Absolute Auto 0.7 K/mm3 (0.1-0.6); Monocytes Percent Auto 7.1 % (2.6-8.5); Neutrophils Absolute Auto 5.7 K/mm3 (1.3-6.7); Neutrophils Percent Auto 61.6 % (45.5-73.1); Platelet Count Result 251 k/mm3 (150-375); Red Blood Count 3.81 M/mm3 (4.6-6.20); Red Cell Distribution Width 16.7 % (11.5-14.5); White Blood Count 9.2 K/mm3 (4.5-10.0)
[2021-10-10 11:59] LABS: Anion Gap 11 mmol/L (8-16); Blood Urea Nitrogen 13 mg/dL (9-20); Calcium 9.9 mg/dL (8.4-10.2); Carbon Dioxide 26 mmol/L (22-30); Chloride 103 mmol/L (98-107); Estimated Glomerular Filt Rate 46; Glucose 276 mg/dL (65-110); Potassium 3.3 mmol/L (3.4-5.0); Sodium 140 mmol/L (137-145)
[2021-10-10 12:18] LABS: Anisocytosis 1+ (NORMAL); Hypochromasia 1+ (NORMAL); Ovalocytes 1+ (NORMAL); Platelet Estimate Adequate (Adequate)
== END 2021-10-10 11:10 | disposition home or self-care (01) ==
LOC: ANHLAB 11:12
PROVIDERS: PCP Internal Medicine; Visit Provider Nurse Practitioner Adult Health
DX: E87.6 Hypokalemia (principal); D62 Acute posthemorrhagic anemia
CPT/HCPCS: 36415; 80048; 85025

== ENCOUNTER 2021-10-20 01:30 | Emergency (ER) | payer MEDICARE, SELFPAY ==
[2021-10-20] VITALS (28 sets, daily range): BP systolic 171–212; BP diastolic 104–120; PULSE 72–101; RESP 13–30; TEMP 36.7–37.3; O2SAT 94–100
--- NOTE | ~2021-10-20 | CT_ITS ---
EXAMINATION: CT abdomen pelvis wo con DATE: 10/20/2021 02:26 INDICATION: Epigastric pain. TECHNIQUE: Computed tomography (CT) of the abdomen and pelvis was performed without intravenous contr ast. The dose-length product was 538.61 mGy-cm. Automated exposure control and iterative reconstructi on technique were employed. COMPARISON: None. FINDINGS: Heart size normal. No significant pleural or pericardial effusion. Small hiatal hernia with thickening of the distal esophagus, suspicious for esophagitis. There are gallstones. Gallbladder is collapsed. The liver, spleen, pancreas, adrenal glands are unremarkable. There are bilateral renal c ysts. There is nonobstructing left nephrolithiasis. There is a penile prosthesis with reservoir in th e right anterior pelvis. Nonobstructive bowel gas pattern. Normal appendix. There are coarse calcific ations of the prostate gland. Moderate osteoarthritis of the hips. Mild lumbar spondylosis. No acute osseous abnormality. IMPRESSION: 1. Small hiatal hernia with thickening of the distal esophagus, concerning for esophagitis. 2: Cholelithiasis. 3: Nonobstructing left nephrolithiasis. Reviewed, dictated and finalized at location A.
--- NOTE | 2021-10-20 02:01 | ECG_ITS ---
Measurements Intervals Herman Rate: 97 P: 42 OR: 188 QRS: -61 QRSD: 100 T: 46 QT: 387 QTc: 492 Interpretive Statements SINUS RHYTHM INCOMPLETE RIGHT BUNDLE BRANCH BLOCK [90+ ms QRS DURATION, TERMINAL R IN V1/V2, 40+ ms S IN I/aVL/V4/V5/V6] LEFT ANTERIOR FASCICULAR BLOCK [QRS AXIS <= -45, QR IN I, RS IN II] NONSPECIFIC ST & T-WAVE ABNORMALITY ABNORMAL ECG COMPARED TO ECG 10/05/2021 01:01:50 Electronically Signed On 10-20-2021 15:53:24 CDT by Alexey Erwin M.D.
--- NOTE | 2021-10-20 02:01 | ED.NAVMDI ---
HPI - Nausea/Vomiting/Diarrhea General Chief complaint: GI Bleed Stated complaint: n/v, possible gi bleed Time Seen by Provider: 10/20/21 01:49 Source: patient Mode of arrival: ambulatory Limitations: no limitations History of Present Illness HPI Narrative: Patient is a 66-year-old male complaining of nausea and vomiting accompanied by burning sensation from his epigastric area radiating to his chest that started yesterday. Patient describes his vomitus as brown, nonbloody. Patient was recently admitted here 3 weeks ago for the same complaint, but at that time he was having coffee-ground emesis and not brown like he is having for the past few days. Patient was diagnosed with acute upper GI bleed had an EGD done and the cause of his bleeding was due to moderate to severe erosive esophagitis, was prescribed a PPI and sucralfate on discharge. Patient is not on any oral anticoagulants or any antiplatelet medication. Related Data Home Medications Medication Instructions Recorded Confirmed FreeStyle Jose J 14 Day Sensor 06/12/21 10/05/21 aspirin 81 mg PO DAILY 06/12/21 10/05/21 atorvastatin 80 mg PO DAILY 06/12/21 10/05/21 ergocalciferol (vitamin D2) 50,000 unit PO WEEKLY 06/12/21 10/05/21 folic acid 1 mg PO DAILY 06/12/21 10/05/21 gabapentin 200 mg PO TID 06/12/21 10/05/21 promethazine 25 mg PO Q8H PRN 06/12/21 10/05/21 venlafaxine 150 mg PO DAILY 06/12/21 10/05/21 Allergies Allergy/AdvReac Type Severity Reaction Status Date / Time metformin Allergy Diarrhea Verified 10/05/21 11:24 pregabalin [From Lyrica] Allergy Swelling Verified 10/05/21 11:24 Review of Systems Review of Systems: All systems reviewed & are unremarkable except as noted in HPI and below Constitutional: Constitutional: Denies body ache(s), Denies chills, Denies excessive sweating, Denies fatigue, Denies fever(s), Denies headache(s), Denies lethargy, Denies malaise, Denies weakness and Denies weight loss Eyes: Eyes: Denies blurry vision, Denies change in vision and Denies loss of vision ENT: Denies dizziness, Denies ear discharge, Denies headache(s), Denies lip swelling, Denies epistaxis, Denies nasal congestion, Denies neck pain, Denies throat swelling and Denies tongue swelling Cardiovascular: Cardiovascular: Denies chest pain, Denies chest pain at rest, Denies chest pain with activity, Denies diaphoresis, Denies rapid heart rate, Denies edema, Denies irregular heart rhythm, Denies lightheadedness, Denies palpitations, Denies dyspnea and Denies dyspnea on exertion Respiratory: Respiratory: Denies chest congestion, Denies cough, Denies hemoptysis, Denies dyspnea and Denies dyspnea on exertion Gastrointestinal: Gastrointestinal: Denies melena, Denies hematochezia and Denies diarrhea Musculoskeletal: Musculoskeletal: Denies abnormal gait, Denies deformity, Denies joint swelling, Denies limited range of motion, Denies neck pain and Denies numbness Neurologic: Denies Abnormal speech present, Denies abnormal gait, Denies confusion, Denies dizziness, Denies headache(s), Denies focal weakness, Denies loss of vision, Denies numbness, Denies Other visual disturbances, Denies Sensory deficit (Neuro) and Denies weakness Psychiatric: Psychiatric: Denies confusion, Denies depression, Denies auditory hallucinations, Denies homicidal ideation and Denies suicidal ideation Endocrine: Endocrine: Denies cold intolerance, Denies excessive sweating, Denies fatigue, Denies heat intolerance and Denies palpitations Hematologic/Lymphatic: Hematologic/Lymphatic: Denies easy bleeding and Denies easy bruising Allergic/Immunologic: Allergic/Immunologic: Denies lip swelling, Denies throat swelling and Denies tongue swelling PMFSH Past Medical History Medical History Acute on chronic blood loss anemia Arthritis Benign prostatic hyperplasia Chronic kidney disease Cirrhosis Depression Diabetic peripheral neuropathy Dyslipidemia Erosiv
[2021-10-20 02:33] LABS: Basophils Percent Auto 0.2 % (0.2-1.2); Hematocrit 34.3 % (42.0-52.0); Hemoglobin 10.4 g/dL (14.0-18.0); Immature Granulocyte Absolute 0.05 K/mm3 (0.00-0.031); Immature Granulocyte Percent A 0.3 % (0-0.5); Lymphocytes Percent Auto 4.2 % (18.3-44.2); Mean Corpuscular HGB Conc 30.3 g/dl (32-36); Mean Corpuscular Hemoglobin 22.8 pg (26-34); Mean Corpuscular Volume 75.2 fl (80-100); Mean Platelet Volume 9.4 fl (7.4-10.4); Monocytes Absolute Auto 0.4 K/mm3 (0.1-0.6); Monocytes Percent Auto 2.5 % (2.6-8.5); Neutrophils Absolute Auto 15.5 K/mm3 (1.3-6.7); Neutrophils Percent Auto 92.8 % (45.5-73.1); Platelet Count Result 412 k/mm3 (150-375); Red Blood Count 4.56 M/mm3 (4.6-6.20); Red Cell Distribution Width 15.7 % (11.5-14.5); White Blood Count 16.7 K/mm3 (4.5-10.0)
[2021-10-20 02:45] LABS: Alanine Aminotransferase 15 U/L (4-50); Albumin Level 4.9 g/dL (3.5-5.1); Alkaline Phosphatase 96 U/L (38-126); Anion Gap 13 mmol/L (8-16); Aspartate Amino Transferase 30 U/L (17-59); Bilirubin,Total 1.9 mg/dL (0.2-1.3); Blood Urea Nitrogen 19 mg/dL (9-20); Calcium 9.7 mg/dL (8.4-10.2); Carbon Dioxide 35 mmol/L (22-30); Chloride 93 mmol/L (98-107); Estimated CRCL calculation 42 ml/min; Estimated Glomerular Filt Rate 49; Glucose 426 mg/dL (65-110); Potassium 3.3 mmol/L (3.4-5.0); Sodium 141 mmol/L (137-145)
[2021-10-20 02:49] LABS: INR 1.1; Prothrombin Time 13.5 Seconds (11.1-14.7)
[2021-10-20 02:50] LABS: Partial Thromboplastin Time 34.4 SECONDS (22.3-36.8)
[2021-10-20] MEDS: SODIUM CHLORIDE 0.9% IV 1,000 ML 999 ML IV CONT (02:56)
[2021-10-20] MEDS: SODIUM CHLORIDE 0.9% IV 100 ML 500 ML (02:56)
[2021-10-20] MEDS: PANTOPRAZOLE SODIUM IV 40 MG VIAL IV PUSH (02:57)
[2021-10-20] MEDS: PROMETHAZINE HCL 25 MG/ML AMPUL 12.5 MG IV PUSH (02:57)
[2021-10-20 03:01] LABS: Troponin I < 0.012 ng/mL (0.000-0.034)
[2021-10-20] MEDS: MORPHINE SULFATE (*CRX) 4 MG/ML INJ IV PUSH (03:05)
[2021-10-20] MEDS: LABETALOL HCL INJ 100 MG/20 ML VIAL 20 MG IV PUSH (04:40)
[2021-10-20] MEDS: POTASSIUM CHLORIDE 20 MEQ PACKET (FOR LIQUID) 40 MEQ PO (05:16)
== END 2021-10-20 06:04 | disposition home or self-care (01) ==
PROVIDERS: Emergency Provider Emergency Medicine; PCP Internal Medicine
DX: K21.00 Gastro-esophageal reflux disease with esophagitis, without bleeding (principal); E87.6 Hypokalemia; I12.9 Hypertensive chronic kidney disease with stage 1 through stage 4 chronic kidney disease, or unspecified chronic kidney disease; E11.22 Type 2 diabetes mellitus with diabetic chronic kidney disease; N18.9 Chronic kidney disease, unspecified; E11.42 Type 2 diabetes mellitus with diabetic polyneuropathy; E78.5 Hyperlipidemia, unspecified; Z86.19 Personal history of other infectious and parasitic diseases; F17.210 Nicotine dependence, cigarettes, uncomplicated; Z79.4 Long term (current) use of insulin; Z79.82 Long term (current) use of aspirin; I45.2 Bifascicular block
CPT/HCPCS: 36415; 74176; 80053; 84484; 85025; 85610; 85730; 93005; 96361; 96374; 96375; 99284; A9270; C9113; J2270; J2550; J7030

== ENCOUNTER 2021-10-22 12:49 | Emergency (ER) | payer MEDICARE, SELFPAY ==
--- NOTE | ~2021-10-22 | XR_ITS ---
EXAMINATION: XR chest 1V portable DATE: 10/22/2021 14:07 INDICATION: Dizziness TECHNIQUE: frontal view of the chest was obtained. COMPARISON: Chest radiograph dated 10/04/2021 FINDINGS: Unchanged mild elevation of the left hemidiaphragm. The lungs remain clear with no focal airspace opa cities, pulmonary edema, pleural effusion or pneumothorax. The cardiomediastinal silhouette is normal . Degenerative skeletal changes at the bilateral shoulders. IMPRESSION: 1. Chronic mild elevation of the left hemidiaphragm. No acute cardiopulmonary disease. Reviewed, dictated and finalized at location A. IMPRESSION: 1. Chronic mild elevation of the left hemidiaphragm. No acute cardiopulmonary d isease.
--- NOTE | 2021-10-22 12:51 | ECG_ITS ---
Measurements Intervals [place] Rate: 80 P: 15 HI: 178 QRS: -54 QRSD: 103 T: 1 QT: 396 QTc: 459 Interpretive Statements SINUS RHYTHM LEFT ANTERIOR FASCICULAR BLOCK [QRS AXIS <= -45, QR IN I, RS IN II] V2] COMPARED TO ECG 10/20/2021 02:36:52 NO SIGNIFICANT CHANGE Electronically Signed On 10-22-2021 13:26:07 CDT by Naif Mathew M.D.
[2021-10-22 12:59] VITALS: BP 121/86; PULSE 86; RESP 16; O2SAT 99
[2021-10-22 13:01] LABS: Glucose Point of Care 254 mg/dl (65-105)
--- NOTE | 2021-10-22 13:10 | ED.GENADULT ---
HPI - General Adult General Chief complaint: Recheck/Abnormal Lab/Rx Stated complaint: hyperglycemic/hypotensive Time Seen by Provider: 10/22/21 12:51 Source: patient Mode of arrival: ambulatory Limitations: no limitations History of Present Illness HPI narrative: Patient is a 66-year-old male brought in by EMS due to elevated blood sugar and low blood pressure at home, I am fine I do know why my called the ambulance, which is here and they just discharge me 2 days ago . Patient denies any symptoms. Patient denies any headache, dizziness, weakness, numbness, chest pain, shortness of breath, abdominal pain, nausea, vomiting, diarrhea, urinary symptoms, fever or chills. Patient is refusing any lab work, I was just here I want to go home Related Data Home Medications Medication Instructions Recorded Confirmed FreeStyle Jose J 14 Day Sensor 06/12/21 10/05/21 aspirin 81 mg PO DAILY 06/12/21 10/05/21 atorvastatin 80 mg PO DAILY 06/12/21 10/05/21 ergocalciferol (vitamin D2) 50,000 unit PO WEEKLY 06/12/21 10/05/21 folic acid 1 mg PO DAILY 06/12/21 10/05/21 gabapentin 200 mg PO TID 06/12/21 10/05/21 promethazine 25 mg PO Q8H PRN 06/12/21 10/05/21 venlafaxine 150 mg PO DAILY 06/12/21 10/05/21 Allergies Allergy/AdvReac Type Severity Reaction Status Date / Time metformin Allergy Diarrhea Verified 10/05/21 11:24 pregabalin [From Lyrica] Allergy Swelling Verified 10/05/21 11:24 Review of Systems Review of Systems: All systems reviewed & are unremarkable except as noted in HPI and below Constitutional: Constitutional: Denies body ache(s), Denies chills, Denies excessive sweating, Denies fatigue, Denies fever(s), Denies headache(s), Denies lethargy, Denies malaise, Denies weakness and Denies weight loss Eyes: Eyes: Denies blurry vision, Denies change in vision and Denies loss of vision ENT: Denies dizziness, Denies ear discharge, Denies headache(s), Denies lip swelling, Denies epistaxis, Denies nasal congestion, Denies neck pain, Denies throat swelling and Denies tongue swelling Cardiovascular: Cardiovascular: Denies chest pain, Denies chest pain at rest, Denies chest pain with activity, Denies diaphoresis, Denies rapid heart rate, Denies edema, Denies irregular heart rhythm, Denies lightheadedness, Denies palpitations, Denies dyspnea and Denies dyspnea on exertion Respiratory: Respiratory: Denies chest congestion, Denies cough, Denies hemoptysis, Denies dyspnea and Denies dyspnea on exertion Gastrointestinal: Gastrointestinal: Denies abdominal pain, Denies melena, Denies hematochezia, Denies diarrhea, Denies nausea, Denies vomiting and Denies hematemesis Musculoskeletal: Musculoskeletal: Denies abnormal gait, Denies deformity, Denies joint swelling, Denies limited range of motion, Denies neck pain and Denies numbness Neurologic: Denies Abnormal speech present, Denies abnormal gait, Denies confusion, Denies dizziness, Denies headache(s), Denies focal weakness, Denies loss of vision, Denies numbness, Denies Other visual disturbances, Denies Sensory deficit (Neuro) and Denies weakness Psychiatric: Psychiatric: Denies confusion, Denies depression, Denies auditory hallucinations, Denies homicidal ideation and Denies suicidal ideation Endocrine: Endocrine: Denies cold intolerance, Denies excessive sweating, Denies fatigue, Denies heat intolerance and Denies palpitations Hematologic/Lymphatic: Hematologic/Lymphatic: Denies easy bleeding and Denies easy bruising Allergic/Immunologic: Allergic/Immunologic: Denies lip swelling, Denies throat swelling and Denies tongue swelling PMFSH Past Medical History Medical History Acute on chronic blood loss anemia Arthritis Benign prostatic hyperplasia Chronic kidney disease Cirrhosis Depression Diabetic peripheral neuropathy Dyslipidemia Erosive esophagitis Gastroesophageal reflux disease Hematemesis Hepatitis C Insulin dependent type 2
--- NOTE | 2021-10-22 13:18 | PC.NURSE ---
Addendum entered by Geetha Osman RN 10/22/21 14:08: is on her way to hospital to speak with pt Original Note: pt is currently refusing IV or blood draws.
[2021-10-22 14:23] LABS: Glucose Point of Care 142 mg/dl (65-105)
--- NOTE | 2021-10-22 14:26 | PC.NURSE ---
Pt's came in and pt was demanding to sign out. Risks including and up to were explained to patient and spouse. asked for the paperwork to sign out due to his refusal for care
== END 2021-10-22 14:28 | disposition left against medical advice (07) ==
PROVIDERS: Emergency Provider Emergency Medicine
DX: E11.65 Type 2 diabetes mellitus with hyperglycemia (principal); N40.0 Benign prostatic hyperplasia without lower urinary tract symptoms; E11.22 Type 2 diabetes mellitus with diabetic chronic kidney disease; N18.9 Chronic kidney disease, unspecified; E11.42 Type 2 diabetes mellitus with diabetic polyneuropathy; E78.5 Hyperlipidemia, unspecified; K74.60 Unspecified cirrhosis of liver; D64.9 Anemia, unspecified; K21.00 Gastro-esophageal reflux disease with esophagitis, without bleeding; M19.90 Unspecified osteoarthritis, unspecified site; Z86.19 Personal history of other infectious and parasitic diseases; F17.210 Nicotine dependence, cigarettes, uncomplicated; Z79.4 Long term (current) use of insulin; Z79.82 Long term (current) use of aspirin; I44.4 Left anterior fascicular block
CPT/HCPCS: 71045; 82948; 93005; 99282; 99283

== ENCOUNTER 2021-12-27 13:36 | Emergency (ER) | payer MEDICARE, MEDICAID, SELFPAY ==
[2021-12-27] VITALS (17 sets, daily range): BP systolic 157–190; BP diastolic 72–107; PULSE 59–82; RESP 12–20; TEMP 36.6; O2SAT 99–100
--- NOTE | ~2021-12-27 | CT_ITS ---
EXAMINATION: CT abdomen pelvis wo con DATE: 12/27/2021 17:07 INDICATION: Epigastric and left upper quadrant abdominal pain. TECHNIQUE: Computed tomography (CT) of the abdomen and pelvis was performed without intravenous contr ast. Automated exposure control and iterative reconstruction technique were employed. The dose-length product was 797.08 mGy-cm. COMPARISON: CT abdomen and pelvis 10/20/2021 FINDINGS: The visualized portions of the lung bases demonstrate mild atelectasis. No pleural effusion . The heart size is normal. No pericardial effusion. There is a small sliding hiatal hernia. The live r and spleen are normal. There is a gallstone in the gallbladder, which is normal in size. The pancre as and adrenal glands are normal. There are cysts in the kidneys measuring up to 2.8 cm on the right. There are three 1-2 mm stones in left kidney. A penile prosthesis is noted. The prostate is mildly e nlarged. There are no dilated loops of bowel. The appendix is normal. There are no pathologically enl arged lymph nodes. There is no free intraperitoneal fluid. There is mild lumbar spondylosis. There ar e bridging endplate osteophytes at multiple levels in the thoracic spine, consistent with diffuse idi opathic skeletal hyperostosis (DISH). IMPRESSION: 1. Small sliding hiatal hernia. Reviewed, dictated and finalized at location A.
[2021-12-27 13:54] LABS: Basophils Absolute Auto 0.1 K/mm3 (0.0-0.1); Eosinophils Absolute Auto 0.4 K/mm3 (0-0.3); Eosinophils Percent Auto 5.2 % (0-4.4); Hematocrit 30.8 % (42.0-52.0); Hemoglobin 8.9 g/dL (14.0-18.0); Immature Granulocyte Absolute 0.01 K/mm3 (0.00-0.031); Immature Granulocyte Percent A 0.1 % (0-0.5); Lymphocytes Percent Auto 28.3 % (18.3-44.2); Mean Corpuscular HGB Conc 28.9 g/dl (32-36); Mean Corpuscular Hemoglobin 21.8 pg (26-34); Mean Corpuscular Volume 75.3 fl (80-100); Mean Platelet Volume 9.3 fl (7.4-10.4); Monocytes Absolute Auto 0.5 K/mm3 (0.1-0.6); Neutrophils Absolute Auto 3.9 K/mm3 (1.3-6.7); Neutrophils Percent Auto 57.4 % (45.5-73.1); Platelet Count Result 207 k/mm3 (150-375); Red Blood Count 4.09 M/mm3 (4.6-6.20); Red Cell Distribution Width 15.9 % (11.5-14.5); White Blood Count 6.7 K/mm3 (4.5-10.0)
[2021-12-27 14:04] LABS: Alanine Aminotransferase 11 U/L (6-50); Albumin Level 4.3 g/dL (3.5-5.1); Alkaline Phosphatase 62 U/L (38-126); Anion Gap 10 mmol/L (8-16); Aspartate Amino Transferase 19 U/L (17-59); Bilirubin,Total 1.1 mg/dL (0.2-1.3); Blood Urea Nitrogen 14 mg/dL (9-20); Calcium 9.5 mg/dL (8.4-10.2); Carbon Dioxide 27 mmol/L (22-30); Chloride 103 mmol/L (98-107); Estimated CRCL calculation 44 ml/min; Estimated Glomerular Filt Rate 53; Glucose 269 mg/dL (65-110); Lipase 133 U/L (23-300); Potassium 3.2 mmol/L (3.4-5.0); Sodium 140 mmol/L (137-145)
[2021-12-27 14:30] LABS: Platelet Estimate Adequate (Adequate)
[2021-12-27 14:32] LABS: Anisocytosis 1+ (NORMAL); Hypochromasia 1+ (NORMAL)
[2021-12-27 14:33] LABS: Acanthocytes 1+ (NORMAL); Burr Cells 1+ (NORMAL); Helmet Cells 1+ (NORMAL); Ovalocytes 1+ (NORMAL); Schistocytes 1+ (NORMAL)
--- NOTE | 2021-12-27 15:33 | ED.ABDPAIN ---
HPI - Abdominal Pain General Chief Complaint: Abdominal Pain Stated Complaint: abd pain Time Seen by Provider: 12/27/21 15:32 Source: patient Mode of arrival: ambulatory Limitations: no limitations History of Present Illness HPI narrative: Patient is a 66-year-old male who presents to the ED with report of epigastric/left upper quadrant pain. Patient reports having constant pain for the past 1 month, with worsening persistent pain over the past 1 week. He describes the pain as though two sticks are being rubbed together. Denies necessarily a burning pain, however. He has been taking tylenol at home for this with some relief. States it is tender to his touch when he presses on his abdomen. Denies any other aggravating or alleviating factors to the pain. Denies any fever, chills, nausea, vomiting, diarrhea, constipation, rectal bleeding, chest pain, difficulty breathing, cough, cold symptoms. Related Data Home Medications Medication Instructions Recorded Confirmed aspirin 81 mg capsule 81 mg PO DAILY 06/12/21 10/05/21 atorvastatin 80 mg tablet 80 mg PO DAILY 06/12/21 10/05/21 ergocalciferol (vitamin D2) 50,000 50,000 unit PO WEEKLY 06/12/21 10/05/21 unit tablet flash glucose sensor (FreeStyle 06/12/21 10/05/21 Jsoe J 14 Day Sensor) folic acid 1 mg tablet 1 mg PO DAILY 06/12/21 10/05/21 gabapentin 100 mg capsule 200 mg PO TID 06/12/21 10/05/21 promethazine 25 mg tablet 25 mg PO Q8H PRN Nausea And 06/12/21 10/05/21 Vomiting venlafaxine 150 mg 150 mg PO DAILY 06/12/21 10/05/21 capsule,extended release 24 hr Allergies Allergy/AdvReac Type Severity Reaction Status Date / Time metformin Allergy Diarrhea Verified 12/27/21 15:35 pregabalin [From Lyrica] Allergy Swelling Verified 12/27/21 15:35 venlafaxine [From Effexor] AdvReac Confusion Verified 12/27/21 15:36 Review of Systems Review of Systems: CONSTITUTIONAL: Denies fever, chills. ENT: Denies rhinorrhea, congestion, sore throat, or otalgia. CARDIOVASCULAR: Denies chest pain, palpitations, or edema. RESPIRATORY: Denies cough or dyspnea. GASTROINTESTINAL: Reports epigastric/LUQ pain. Denies nausea, vomiting, constipation, rectal bleeding, or diarrhea. GENITOURINARY: Denies dysuria or hematuria. MUSCULOSKELETAL: Denies back pain. All systems reviewed & are unremarkable except as noted in HPI and below PMFSH Past Medical History Medical History (Updated 12/28/21 @ 00:00 by Shukri Trevino) Acute on chronic blood loss anemia Arthritis Benign prostatic hyperplasia Chronic kidney disease Cirrhosis Depression Diabetic peripheral neuropathy Dyslipidemia Erosive esophagitis Gastroesophageal reflux disease Hematemesis Hepatitis C Insulin dependent type 2 diabetes mellitus Tobacco abuse disorder UGIB (upper gastrointestinal bleed) Uncontrolled diabetes mellitus Surgical History Surgical History (Updated 12/27/21 @ 17:34 by Maddie Ortiz PA-C) No pertinent past surgical history Social History Social History Social History: Surrogate decision maker: Mahnaz Christopher, spouse. Code status: Full code. Smoking packs per day: 1 Smoking cigarettes per day: 20.0 Years smoked: 40 Smoking pack-years: 40.00 Smoking status: Current every day smoker Tobacco type: cigarettes Second hand tobacco smoke exposure: Yes Additional smoking assessment comments: pt's spouse says pt smokes between 10 cigarettes and a pack daily Alcohol intake: never Substance use: never Substance use type: does not use Additional living arrangements comments: The patient lives with his in [place]. Additional occupation/education comments: Retired. Spiritual care concerns: No Exam Narrative: GENERAL: Well appearing, well-nourished, non-toxic, in no acute distress. HEAD: Normocephalic, atraumatic. NECK: Supple. No adenopathy, no masses. RESPIRATORY: Airway patent, respirations nonlabored. Clear to
--- NOTE | 2021-12-27 16:56 | ECG_ITS ---
Measurements Intervals [place] Rate: 60 P: 66 NE: 227 QRS: -44 QRSD: 98 T: -6 QT: 400 QTc: 401 Interpretive Statements SINUS RHYTHM WITH FIRST DEGREE AV BLOCK LEFT AXIS DEVIATION CANNOT RULE OUT SEPTAL INFARCT, AGE INDETERMINATE BORDERLINE ST-T WAVE ABNORMALITY- DIFFUSE LEADS BASELINE ARTIFACT- I, II, III, AVR, AVL, AVF, V1 ATYPICAL ECG Electronically Signed On 12-27-2021 18:16:13 CDT by Aric Lee D.O.
[2021-12-27] MEDS: POTASSIUM CHLORIDE 20 MEQ TABLET 40 MEQ PO (17:24)
[2021-12-27] MEDS: SODIUM CHLORIDE 0.9% IV 500 ML 999 ML IV CONT (17:24)
--- NOTE | 2021-12-27 17:27 | PC.NURSE ---
called lab and spoke with Yifan to add on Trop I
[2021-12-27 17:50] LABS: Troponin I 0.014 ng/mL (0.000-0.034)
[2021-12-27 18:47] LABS: Appearance Urine Clear (Clear); Bilirubin Urine Negative (Negative); Blood Urine Negative (Negative); Color Urine Yellow (Yellow); Glucose Urine UA 1+ mg/dL (Negative); Ketones Urine Negative (Negative); Leukocyte Esterase Ur Trace LEU/UL (Negative); Nitrate Urine Negative (Negative); Protein Urine 3+ mg/dL (Negative); Urobilinogen Urine 0.2 mg/dL (<2.0)
[2021-12-27 18:55] LABS: RBC Urine 0-2 /hpf (0-2); WBC Urine 0-3 /hpf
[2021-12-27 18:56] LABS: Add Urine Microscopic? YES
== END 2021-12-27 20:10 | disposition home or self-care (01) ==
PROVIDERS: Emergency Medicine; Physician Assistant; Emergency Provider Emergency Medicine
DX: K44.9 Diaphragmatic hernia without obstruction or gangrene (principal); E11.22 Type 2 diabetes mellitus with diabetic chronic kidney disease; N18.9 Chronic kidney disease, unspecified; I12.9 Hypertensive chronic kidney disease with stage 1 through stage 4 chronic kidney disease, or unspecified chronic kidney disease; F17.210 Nicotine dependence, cigarettes, uncomplicated
CPT/HCPCS: 36415; 74176; 80053; 81001; 83690; 84484; 85025; 93005; 96365; 99284; A9270; J0131; J7040

== ENCOUNTER 2022-03-06 09:39 | Emergency (ER) | payer MEDICARE, SELFPAY ==
[2022-03-06] VITALS (7 sets, daily range): BP systolic 133–161; BP diastolic 81–88; PULSE 67–76; RESP 14–20; TEMP 36.6; O2SAT 100
--- NOTE | ~2022-03-06 | XR_ITS ---
XR shoulder RT min 2V 03/06/2022 10:44 Indication: Right shoulder pain Procedure: 3 views right shoulder Comparison: No prior studies for comparison. Findings: There is polyarticular osteoarthritis of the right shoulder. Osteopenia. There is a possibl e fracture inferior margin of the glenoid process. Impression: 1: Possible fracture inferior aspect of the glenoid process. Recommend correlation with CT. Reviewed, dictated and finalized at location A. Impression: 1: Possible fracture inferior aspect of the glenoid process. Recommend correlat ion with CT.
--- NOTE | ~2022-03-06 | CT_ITS ---
EXAMINATION: CT shoulder RT wo con DATE: 03/06/2022 11:04 INDICATION: Right glenoid fracture. TECHNIQUE: Computed tomography (CT) of the right shoulder was performed without intravenous contrast. Automated exposure control and iterative reconstruction technique were employed. The dose-length pro duct was 514.45 mGy-cm. COMPARISON: Right shoulder radiographs 03/06/2022 FINDINGS: Bone alignment is normal. There is a fracture of the anteroinferior glenoid with up to 8 mm displacement. There is mild osteoarthritis of glenohumeral joint and severe osteoarthritis of acromi oclavicular joint. There is no asymmetric fatty atrophy of the rotator cuff muscle bellies. IMPRESSION: 1. Fracture of anteroinferior glenoid. 2. Polyarticular osteoarthritis. Reviewed, dictated and finalized at location A.
--- NOTE | 2022-03-06 10:05 | ED.FALL ---
HPI - Fall General Chief Complaint: Fall Stated Complaint: R shoulder pain Time Seen by Provider: 03/06/22 09:58 History of Present Illness HPI Narrative: Patient is a 66-year-old male with a history of HTN, HLD, DM with peripheral neuropathy, here for evaluation of right shoulder pain after a fall earlier today. Patient states that he was walking in his usual state of health, which she usually does with a shuffle due to his peripheral neuropathy. States that he began to shuffle too fast, causing him to lose his balance, and fall forward onto outstretched hands. He is currently complaining of right shoulder pain. He denies any head injury or loss of consciousness in the incident. He states that he was in his usual state of health this morning and denies any preceding chest pain, shortness of breath, headaches, weakness. Related Data Home Medications Medication Instructions Recorded Confirmed aspirin 81 mg capsule 81 mg PO DAILY 06/12/21 10/05/21 atorvastatin 80 mg tablet 80 mg PO DAILY 06/12/21 10/05/21 ergocalciferol (vitamin D2) 50,000 50,000 unit PO WEEKLY 06/12/21 10/05/21 unit tablet flash glucose sensor (FreeStyle 06/12/21 10/05/21 Jose J 14 Day Sensor kit) folic acid 1 mg tablet 1 mg PO DAILY 06/12/21 10/05/21 gabapentin 100 mg capsule 200 mg PO TID 06/12/21 10/05/21 promethazine 25 mg tablet 25 mg PO Q8H PRN Nausea And 06/12/21 10/05/21 Vomiting venlafaxine 150 mg 150 mg PO DAILY 06/12/21 10/05/21 capsule,extended release 24 hr Allergies Allergy/AdvReac Type Severity Reaction Status Date / Time metformin Allergy Diarrhea Verified 03/06/22 09:55 pregabalin [From Lyrica] Allergy Swelling Verified 03/06/22 09:55 venlafaxine [From Effexor] AdvReac Confusion Verified 03/06/22 09:55 Review of Systems Review of Systems: Gen: Denies fevers or chills Eyes: Denies eye pain or visual change ENT: Denies congestion Respiratory: Denies shortness of breath or cough CV: Denies chest pain or palpitations GI: Denies abdominal pain nausea, emesis or diarrhea : denies burning, urgency, frequency or hematuria Musculoskeletal: Reports right shoulder pain. Denies back pain or muscle pain Neuro: Denies numbness, tingling, weakness or focal weakness Skin: Denies rash Except as documented, all other systems reviewed and negative PMFSH Past Medical History Medical History Acute on chronic blood loss anemia Arthritis Benign prostatic hyperplasia Chronic kidney disease Cirrhosis Depression Diabetic peripheral neuropathy Dyslipidemia Erosive esophagitis Gastroesophageal reflux disease Hematemesis Hepatitis C Insulin dependent type 2 diabetes mellitus Tobacco abuse disorder UGIB (upper gastrointestinal bleed) Uncontrolled diabetes mellitus Surgical History Surgical History No pertinent past surgical history Social History Social History Social History: Surrogate decision maker: Mahnaz Christopher, spouse. Code status: Full code. Smoking packs per day: 1 Smoking cigarettes per day: 20.0 Years smoked: 40 Smoking pack-years: 40.00 Smoking status: Current every day smoker Tobacco type: cigarettes Second hand tobacco smoke exposure: Yes Additional smoking assessment comments: pt's spouse says pt smokes between 10 cigarettes and a pack daily Alcohol intake: never Substance use: never Substance use type: does not use Additional living arrangements comments: The patient lives with his in [place]. Additional occupation/education comments: Retired. Spiritual care concerns: No Exam Narrative: APPEARANCE: Well appearing, no pain in distress, well-nourished. Head: Normocephalic and atraumatic. EYES: PERRLA/EOMI, conjunctivae clear NOSE: No nasal drainage EARS: External ear normal in appearance THROAT:
[2022-03-06] MEDS: HYDROcodone/acetaminophen (*CRX) 5-325 MG TABLET 1 TAB PO (11:44)
== END 2022-03-06 12:22 | disposition home or self-care (01) ==
PROVIDERS: Emergency Provider Emergency Medicine
DX: S42.141A Displaced fracture of glenoid cavity of scapula, right shoulder, initial encounter for closed fracture (principal); I10 Essential (primary) hypertension; E78.5 Hyperlipidemia, unspecified; E11.42 Type 2 diabetes mellitus with diabetic polyneuropathy; N40.0 Benign prostatic hyperplasia without lower urinary tract symptoms; K74.60 Unspecified cirrhosis of liver; K22.10 Ulcer of esophagus without bleeding; Z86.19 Personal history of other infectious and parasitic diseases; F17.210 Nicotine dependence, cigarettes, uncomplicated; M19.011 Primary osteoarthritis, right shoulder; Z79.82 Long term (current) use of aspirin; Z79.4 Long term (current) use of insulin; W18.39XA Other fall on same level, initial encounter
CPT/HCPCS: 73030; 73200; 99284; A4565; A9270

== ENCOUNTER 2022-04-14 12:16 | Emergency (ER) | payer MEDICARE, SELFPAY ==
[2022-04-14] VITALS (8 sets, daily range): BP systolic 140–179; BP diastolic 83–105; PULSE 67–76; RESP 13–19; O2SAT 99–100
--- NOTE | ~2022-04-14 | CT_ITS ---
EXAMINATION: CT brain wo con DATE: 04/14/2022 13:26 INDICATION: Aphasia. TECHNIQUE: Computed tomography (CT) of the head was performed without intravenous contrast. The mA wa s adjusted according to patient size. Iterative reconstruction technique was employed. The dose-lengt h product was 605.33 mGy-cm. COMPARISON: Head CT 06/12/2021 FINDINGS: There are old lacunar infarcts in the left basal ganglia and daniella. There are scattered area s of low attenuation in the cerebral white matter. There is no intracranial hemorrhage, acute infarct ion, or abnormal intracranial mass lesion. The ventricles are normal in size. There is mucosal thicke hubert in the paranasal sinuses. The orbits are normal. The mastoid air cells are normal. There is a ri ght posterior superior scalp hematoma. IMPRESSION: 1. Old lacunar infarcts in the left basal ganglia and daniella. 2. Stable moderate nonspecific cerebral white matter disease, which likely represents chronic small v essel ischemic disease. 3. I discussed this case with Dr. Andrews. Reviewed, dictated and finalized at location A. IMPRESSION: 1. Old lacunar infarcts in the left basal ganglia and daniella. 2. Stable moderate nonspecific cerebral white matter disease, which likely repr esents chronic small vessel ischemic disease. 3. I discussed this case with Dr. Andrews.
--- NOTE | ~2022-04-14 | XR_ITS ---
EXAMINATION: XR chest 1V portable DATE: 04/14/2022 13:46 INDICATION: Altered mental status. Slurred speech. TECHNIQUE: frontal view of the chest was obtained. COMPARISON: Chest radiograph dated 10/22/2021 FINDINGS: Unchanged mild elevation the left hemidiaphragm. Lungs remain clear with no focal airspace opacities, pulmonary edema, pleural effusion or pneumothorax. The cardiomediastinal silhouette is normal. Mild to moderate degenerative skeletal changes in the spine and at both shoulders. IMPRESSION: 1. Chronic mild elevation of left hemidiaphragm. No acute cardiopulmonary disease. Reviewed, dictated and finalized at location A. IMPRESSION: 1. Chronic mild elevation of left hemidiaphragm. No acute cardiopulmonary disea se.
--- NOTE | 2022-04-14 13:07 | ED.AMS ---
HPI - Altered Mental Status General Chief Complaint: Suspected CVA Stated Complaint: increased confusion Time Seen by Provider: 04/14/22 12:54 History of Present Illness HPI narrative: Patient is a 66-year-old male with a history of diabetes, hypertension, CKD, hyperlipidemia, GERD presenting with altered mental status. Patient's states he was in his normal state of health until approximately 2 hours ago when he began struggling to speak. States he had significantly slurred speech and he was unable to find his words. She then called EMS. No focal numbness or weakness. No facial droop. Currently, patient denies complaints though he continues to have significant word finding difficulties and dysarthria. Stroke alert called on my evaluation. Related Data Home Medications Medication Instructions Recorded Confirmed aspirin 81 mg capsule 81 mg PO DAILY 06/12/21 10/05/21 atorvastatin 80 mg tablet 80 mg PO DAILY 06/12/21 10/05/21 ergocalciferol (vitamin D2) 50,000 50,000 unit PO WEEKLY 06/12/21 10/05/21 unit tablet flash glucose sensor ([employer] 06/12/21 10/05/21 Jose J 14 Day Sensor kit) folic acid 1 mg tablet 1 mg PO DAILY 06/12/21 10/05/21 gabapentin 100 mg capsule 200 mg PO TID 06/12/21 10/05/21 promethazine 25 mg tablet 25 mg PO Q8H PRN Nausea And 06/12/21 10/05/21 Vomiting Allergies Allergy/AdvReac Type Severity Reaction Status Date / Time metformin Allergy Diarrhea Verified 04/14/22 12:31 pregabalin [From Lyrica] Allergy Swelling Verified 04/14/22 12:31 venlafaxine [From Effexor] AdvReac Confusion Verified 04/14/22 12:31 Review of Systems Review of Systems: All systems reviewed & are unremarkable except as noted in HPI and below PMFSH Past Medical History Medical History Acute on chronic blood loss anemia Arthritis Benign prostatic hyperplasia Chronic kidney disease Cirrhosis Depression Diabetic peripheral neuropathy Dyslipidemia Erosive esophagitis Gastroesophageal reflux disease Hematemesis Hepatitis C Insulin dependent type 2 diabetes mellitus Tobacco abuse disorder UGIB (upper gastrointestinal bleed) Uncontrolled diabetes mellitus Surgical History Surgical History No pertinent past surgical history Social History Social History Social History: Surrogate decision maker: Mahnaz Christopher, spouse. Code status: Full code. Smoking packs per day: 1 Smoking cigarettes per day: 20.0 Years smoked: 40 Smoking pack-years: 40.00 Smoking status: Current every day smoker Tobacco type: cigarettes Second hand tobacco smoke exposure: Yes Additional smoking assessment comments: pt's spouse says pt smokes between 10 cigarettes and a pack daily Alcohol intake: never Substance use: never Substance use type: does not use Additional living arrangements comments: The patient lives with his in [place]. Additional occupation/education comments: Retired. Spiritual care concerns: No Exam Narrative: GENERAL: Well-appearing, well-nourished, and in no acute distress. HEAD: Normocephalic, atraumatic. EYES: PERRLA and EOMI. ENT: Nares clear, no rhinorrhea or epistaxis. Mucous membranes moist. NECK: Supple. CHEST: Clear to auscultation. No respiratory distress. HEART: Regular rate and rhythm. No murmur heard. Normal peripheral pulses. ABDOMEN: Soft, nontender, nondistended, normal active bowel sounds. EXTREMITIES: Normal range of motion. No edema. SKIN: Warm, dry, no rash. NEURO: significant dysarthria and aphasia, no facial droop, strength 5/5 in all extremities; no sensory deficits PSYCH: Normal mood and affect. Course Vital Signs Vital signs: Vital Signs Pulse Rate 70 04/14/22 12:22 Respiratory Rate 16 04/14/22 12:22 Blood Pressure 140/88 04/14/22 12:22 Pulse Oximetry 100 /
--- NOTE | 2022-04-14 13:16 | ECG_ITS ---
Measurements Intervals [place] Rate: 72 P: 37 CT: 214 QRS: -54 QRSD: 98 T: 26 QT: 314 QTc: 346 Interpretive Statements SINUS RHYTHM WITH FIRST DEGREE AV BLOCK LEFT ANTERIOR FASCICULAR BLOCK ANTEROSEPTAL INFARCT, AGE INDETERMINATE BORDERLINE T WAVE ABNORMALITY- INFERIOR LEADS BASELINE ARTIFACT- I, III, AVR, AVL, V2 ABNORMAL ECG COMPARED TO ECG 12/27/2021 17:23:44 LEFT ANTERIOR FASCICULAR BLOCK NOW PRESENT Electronically Signed On 04-14-2022 21:24:36 CDT by Aric Lee D.O.
[2022-04-14 13:21] LABS: Glucose Point of Care 271 mg/dl (65-105)
[2022-04-14 13:44] LABS: Basophils Absolute Auto 0.1 K/mm3 (0.0-0.1); Basophils Percent Auto 0.6 % (0.2-1.2); Eosinophils Absolute Auto 0.4 K/mm3 (0-0.3); Hematocrit 32.8 % (42.0-52.0); Hemoglobin 10.1 g/dL (14.0-18.0); Immature Granulocyte Absolute 0.03 K/mm3 (0.00-0.031); Immature Granulocyte Percent A 0.3 % (0-0.5); Lymphocytes Absolute Auto 1.56 K/mm3 (0.9-3.2); Lymphocytes Percent Auto 16.9 % (18.3-44.2); Mean Corpuscular HGB Conc 30.8 g/dl (32-36); Mean Corpuscular Hemoglobin 23.4 pg (26-34); Mean Corpuscular Volume 75.9 fl (80-100); Mean Platelet Volume 9.3 fl (7.4-10.4); Monocytes Absolute Auto 0.6 K/mm3 (0.1-0.6); Monocytes Percent Auto 6.8 % (2.6-8.5); Neutrophils Absolute Auto 6.6 K/mm3 (1.3-6.7); Neutrophils Percent Auto 71.4 % (45.5-73.1); Platelet Count Result 232 k/mm3 (150-375); Red Blood Count 4.32 M/mm3 (4.6-6.20); Red Cell Distribution Width 15.2 % (11.5-14.5); White Blood Count 9.3 K/mm3 (4.5-10.0)
[2022-04-14] MEDS: SODIUM CHLORIDE 0.9% IV 1,000 ML 999 ML IV CONT (13:45)
[2022-04-14 13:57] LABS: Ethanol < 10 mg/dL (<10)
[2022-04-14 14:01] LABS: Alanine Aminotransferase 13 U/L (6-50); Albumin Level 4.5 g/dL (3.5-5.1); Alkaline Phosphatase 97 U/L (38-126); Anion Gap 13 mmol/L (8-16); Aspartate Amino Transferase 19 U/L (17-59); Bilirubin,Total 1.2 mg/dL (0.2-1.3); Blood Urea Nitrogen 13 mg/dL (9-20); Calcium 9.4 mg/dL (8.4-10.2); Carbon Dioxide 29 mmol/L (22-30); Chloride 97 mmol/L (98-107); Estimated CRCL calculation 45 ml/min; Estimated Glomerular Filt Rate 46; Glucose 262 mg/dL (65-110); Potassium 2.4 mmol/L (3.4-5.0); Sodium 139 mmol/L (137-145)
--- NOTE | 2022-04-14 14:01 | PC.NURSE ---
jody accepted urgent transfer to [facility] 15 min trip # [phone]
[2022-04-14 14:06] LABS: Troponin I 0.019 ng/mL (0.000-0.034)
[2022-04-14 14:09] LABS: INR 1.1; Prothrombin Time 13.7 Seconds (11.1-14.7)
[2022-04-14 14:10] LABS: Partial Thromboplastin Time 34.7 SECONDS (22.3-36.8)
[2022-04-14] MEDS: LABETALOL HCL INJ 100 MG/20 ML VIAL 10 MG IV PUSH (14:36)
[2022-04-14 14:59] LABS: Appearance Urine Slightly Cloudy (Clear); Bilirubin Urine Negative (Negative); Blood Urine Negative (Negative); Color Urine Yellow (Yellow); Glucose Urine UA Negative (Negative); Ketones Urine Negative (Negative); Leukocyte Esterase Ur Negative LEU/UL (Negative); Nitrate Urine Negative (Negative); Protein Urine Trace mg/dL (Negative); Specific Grav Ur 1.015 (1.001-1.035); Urobilinogen Urine 0.2 mg/dL (<2.0); pH Urine 8.5 (5.0-9.0)
[2022-04-14 15:17] LABS: Mucus Urine Rare /lpf
[2022-04-14 15:24] LABS: Add Urine Microscopic? YES
== END 2022-04-14 14:46 | disposition short-term general hospital (02) ==
PROVIDERS: Emergency Provider Emergency Medicine
DX: I63.9 Cerebral infarction, unspecified (principal); R29.703 NIHSS score 3; E87.6 Hypokalemia; E11.22 Type 2 diabetes mellitus with diabetic chronic kidney disease; I12.9 Hypertensive chronic kidney disease with stage 1 through stage 4 chronic kidney disease, or unspecified chronic kidney disease; N18.9 Chronic kidney disease, unspecified; E11.42 Type 2 diabetes mellitus with diabetic polyneuropathy; E78.5 Hyperlipidemia, unspecified; N40.0 Benign prostatic hyperplasia without lower urinary tract symptoms; D62 Acute posthemorrhagic anemia; K74.60 Unspecified cirrhosis of liver; K22.10 Ulcer of esophagus without bleeding; K21.9 Gastro-esophageal reflux disease without esophagitis; Z86.19 Personal history of other infectious and parasitic diseases; F17.210 Nicotine dependence, cigarettes, uncomplicated; Z79.82 Long term (current) use of aspirin; Z79.4 Long term (current) use of insulin; Z79.899 Other long term (current) drug therapy
CPT/HCPCS: 36415; 37195; 70450; 71045; 80053; 80307; 81001; 82948; 84484; 85025; 85610; 85730; 93005; 96361; 96374; 99285; J2997; J7030

== ENCOUNTER 2022-05-17 09:09 | Emergency (ER) | payer MEDICARE, SELFPAY ==
--- NOTE | ~2022-05-17 | CT_ITS ---
EXAMINATION: CT abdomen pelvis w con DATE: 05/17/2022 14:07 INDICATION: Epigastric pain TECHNIQUE: Computed tomography (CT) of the abdomen and pelvis was performed with 100 mL Omnipaque-350 intravenous contrast. Automated exposure control and iterative reconstruction technique were employe d. The dose-length product was 1111.79 mGy-cm. COMPARISON: 12/27/21, 10/05/21. FINDINGS: Lower thorax: Minimal bibasilar scar/atelectasis. Coronary artery calcifications. Moderate hiatal her anival. Liver: Normal. Biliary/Gallbladder: Gallbladder is normal. No bile duct dilation. Pancreas: No mass or duct dilation. Spleen: Normal. Adrenals:Periadrenal fat stranding, possibly extending from the kidneys. Kidneys: Perinephric stranding. Multiple bilateral simple renal cysts. Multiple bilateral subcentimet er hypodensities, too small to characterize. Bilateral punctate nonobstructing calculi. No hydronephr osis. GI tract: Distal esophageal wall edema. No small or large bowel dilation. Normal appendix. Mesentery/Peritoneum: No ascites, mass, or free air. Retroperitoneum: No mass. Atherosclerotic abdominal aortic and/or arterial calcifications. Pelvis: Distended urinary bladder with wall thickening, likely secondary to outlet compromise from pr ostatomegaly. Penile implant. Soft Tissues: Soft tissues and body wall unremarkable. Bones: No acute osseous finding. IMPRESSION: Esophagitis. Reviewed, dictated and finalized at location K. IMPRESSION: Esophagitis.
[2022-05-17 09:09] VITALS: BP 193/90; PULSE 101; RESP 16; TEMP 36.4; O2SAT 100
[2022-05-17 09:46] LABS: Basophils Percent Auto 0.1 % (0.2-1.2); Hemoglobin 10.7 g/dL (14.0-18.0); Immature Granulocyte Absolute 0.05 K/mm3 (0.00-0.031); Immature Granulocyte Percent A 0.3 % (0-0.5); Lymphocytes Absolute Auto 0.56 K/mm3 (0.9-3.2); Lymphocytes Percent Auto 3.4 % (18.3-44.2); Mean Corpuscular HGB Conc 30.6 g/dl (32-36); Mean Corpuscular Hemoglobin 23.6 pg (26-34); Mean Corpuscular Volume 77.1 fl (80-100); Mean Platelet Volume 9.5 fl (7.4-10.4); Monocytes Absolute Auto 0.4 K/mm3 (0.1-0.6); Monocytes Percent Auto 2.6 % (2.6-8.5); Neutrophils Absolute Auto 15.3 K/mm3 (1.3-6.7); Neutrophils Percent Auto 93.6 % (45.5-73.1); Platelet Count Result 370 k/mm3 (150-375); Red Blood Count 4.54 M/mm3 (4.6-6.20); Red Cell Distribution Width 14.8 % (11.5-14.5); White Blood Count 16.4 K/mm3 (4.5-10.0)
[2022-05-17 09:59] LABS: Alanine Aminotransferase 21 U/L (6-50); Albumin Level 5.1 g/dL (3.5-5.1); Alkaline Phosphatase 125 U/L (38-126); Anion Gap 22 mmol/L (8-16); Aspartate Amino Transferase 23 U/L (17-59); Bilirubin,Total 2.2 mg/dL (0.2-1.3); Blood Urea Nitrogen 20 mg/dL (9-20); Calcium 10.2 mg/dL (8.4-10.2); Carbon Dioxide 31 mmol/L (22-30); Chloride 92 mmol/L (98-107); Estimated CRCL calculation 37 ml/min; Estimated Glomerular Filt Rate 43; Glucose 376 mg/dL (65-110); Lipase 59 U/L (23-300); Potassium 3.1 mmol/L (3.4-5.0); Sodium 145 mmol/L (137-145)
[2022-05-17 10:29] LABS: Hypochromasia 2+ (NORMAL); Ovalocytes 1+ (NORMAL); Platelet Estimate Adequate (Adequate); Schistocytes 1+ (NORMAL)
[2022-05-17 10:30] LABS: Anisocytosis 2+ (NORMAL); Poikilocytosis 2+ (NORMAL)
--- NOTE | 2022-05-17 11:46 | PC.NURSE ---
Pt not in room, possibly in scan
--- NOTE | 2022-05-17 12:43 | ED.NAVMDI ---
HPI - Nausea/Vomiting/Diarrhea General Chief complaint: Nausea/Vomiting/Diarrhea Stated complaint: emesis x 48 hours, cant keep anything down Time Seen by Provider: 05/17/22 12:21 Source: patient and family Mode of arrival: ambulatory Limitations: no limitations History of Present Illness HPI Narrative: Patient is 67 years old -Honduran male came to the emergency room from home with his complaining of vomiting more than 10 times and multiple defecation more than 3 times started yesterday with epigastric pain. History of gastroesophageal reflux disease with esophagitis without hemorrhage, epigastric pain, calculus of gallbladder and the bile duct with obstruction without cholecystitis, CVA, unspecified mechanism. Patient was seen by Dr. Sahu, global human resources director on May 11 for the above symptoms and was discharged on Carafate. Currently patient on Protonix 40 mg twice daily, Carafate, metoclopramide, promethazine and tramadol Related Data Home Medications Medication Instructions Recorded Confirmed aspirin 81 mg capsule 81 mg PO DAILY 06/12/21 10/05/21 atorvastatin 80 mg tablet 80 mg PO DAILY 06/12/21 10/05/21 ergocalciferol (vitamin D2) 50,000 50,000 unit PO WEEKLY 06/12/21 10/05/21 unit tablet flash glucose sensor ([employer]Style 06/12/21 10/05/21 Jose J 14 Day Sensor kit) folic acid 1 mg tablet 1 mg PO DAILY 06/12/21 10/05/21 gabapentin 100 mg capsule 200 mg PO TID 06/12/21 10/05/21 promethazine 25 mg tablet 25 mg PO Q8H PRN Nausea And 06/12/21 10/05/21 Vomiting Allergies Allergy/AdvReac Type Severity Reaction Status Date / Time metformin Allergy Diarrhea Verified 05/17/22 11:58 pregabalin [From Lyrica] Allergy Swelling Verified 05/17/22 11:58 venlafaxine [From Effexor] AdvReac Confusion Verified 05/17/22 11:58 Review of Systems Review of Systems: All systems reviewed & are unremarkable except as noted in HPI and below PMFSH Past Medical History Medical History Acute on chronic blood loss anemia Arthritis Benign prostatic hyperplasia Chronic kidney disease Cirrhosis Depression Diabetic peripheral neuropathy Dyslipidemia Erosive esophagitis Gastroesophageal reflux disease Hematemesis Hepatitis C Insulin dependent type 2 diabetes mellitus Tobacco abuse disorder UGIB (upper gastrointestinal bleed) Uncontrolled diabetes mellitus Surgical History Surgical History No pertinent past surgical history Social History Social History Social History: Surrogate decision maker: Mahnaz Christopher, spouse. Code status: Full code. Smoking packs per day: 1 Smoking cigarettes per day: 20.0 Years smoked: 40 Smoking pack-years: 40.00 Smoking status: Current every day smoker Tobacco type: cigarettes Second hand tobacco smoke exposure: Yes Additional smoking assessment comments: pt's spouse says pt smokes between 10 cigarettes and a pack daily Alcohol intake: never Substance use: never Substance use type: does not use Additional living arrangements comments: The patient lives with his in [place]. Additional occupation/education comments: Retired. Spiritual care concerns: No Exam Narrative: General appearance: Well-developed, well-nourished, holding vomiting bag, vomiting, looks ill Skin: Normal color Head: Normocephalic, nontraumatic Eyes: Clear conjunctiva ENT: Oropharynx normal, ears normal, nose normal Neck: Supple, nontender Chest and respiratory: Airway patent, no respiratory distress, no accessory muscle use Heart: Regular rate/rhythm Abdomen: Soft, tender epigastric, no organomegaly, quiet bowel sounds Vascular: Normal peripheral pulses, normal capillary refill. Musculoskeletal: Normal range of motion, nontender back Neurologic: Alert and oriented to his name and age, does not know the name of t
[2022-05-17] MEDS: SODIUM CHLORIDE 0.9% IV 2,000 ML 999 ML IV CONT (13:10)
[2022-05-17] MEDS: PANTOPRAZOLE SODIUM IV 40 MG VIAL IV PUSH (13:11)
[2022-05-17] MEDS: HYDROmorphone HCL INJ (*CRX) 1 MG/ML SYR 0.5 MG IV PUSH (13:12)
[2022-05-17] MEDS: ONDANSETRON INJ 4 MG/2 ML VIAL IV PUSH (13:12)
[2022-05-17 13:45] LABS: Add Urine Microscopic? YES; Appearance Urine Clear (Clear); Bilirubin Urine Negative (Negative); Blood Urine Negative (Negative); Color Urine Yellow (Yellow); Glucose Urine UA 2+ mg/dL (Negative); Ketones Urine Trace mg/dL (Negative); Leukocyte Esterase Ur Negative LEU/UL (Negative); Mucus Urine Rare /lpf; Nitrate Urine Negative (Negative); Protein Urine 3+ mg/dL (Negative); Specific Grav Ur 1.015 (1.001-1.035); Urobilinogen Urine Negative mg/dL (<2.0); WBC Urine 0-3 /hpf
[2022-05-17 14:18] VITALS: BP 183/97; PULSE 90; RESP 18; O2SAT 99
[2022-05-17 16:46] LABS: SARS-CoV-2 RNA PCR Negative
== END 2022-05-17 16:21 | disposition home or self-care (01) ==
PROVIDERS: Emergency Provider Emergency Medicine
DX: E86.0 Dehydration (principal); E11.65 Type 2 diabetes mellitus with hyperglycemia; R11.10 Vomiting, unspecified; E87.6 Hypokalemia; R10.13 Epigastric pain; G89.29 Other chronic pain; Z20.822 Contact with and (suspected) exposure to COVID-19; K21.00 Gastro-esophageal reflux disease with esophagitis, without bleeding; M19.90 Unspecified osteoarthritis, unspecified site; N40.0 Benign prostatic hyperplasia without lower urinary tract symptoms; E11.22 Type 2 diabetes mellitus with diabetic chronic kidney disease; N18.9 Chronic kidney disease, unspecified; K74.60 Unspecified cirrhosis of liver; E11.42 Type 2 diabetes mellitus with diabetic polyneuropathy; E78.5 Hyperlipidemia, unspecified; D64.9 Anemia, unspecified; Z86.19 Personal history of other infectious and parasitic diseases; F17.210 Nicotine dependence, cigarettes, uncomplicated; Z79.82 Long term (current) use of aspirin; Z79.4 Long term (current) use of insulin
CPT/HCPCS: 36415; 74177; 80053; 81001; 83690; 85025; 96361; 96374; 96375; 99284; C9113; C9803; J1170; J2405; J7030; Q9967; U0003; U0005

== ENCOUNTER 2022-05-19 17:11 | Emergency (ER) | payer MEDICARE, SELFPAY ==
--- NOTE | ~2022-05-19 | CT_ITS ---
EXAMINATION: CT abdomen pelvis w con INDICATION: Nausea and vomiting, diffuse abdominal pain TECHNIQUE: Computed tomographic images of the abdomen and pelvis were obtained after the administrati on of 100 cc of Omnipaque 350 intravenous contrast. The dose-length product (DLP) was 655.30 mGy-cm. Automated exposure control and iterative reconstruction technique were employed. COMPARISON: 05/17/2022 FINDINGS: Minimal dependent atelectasis is present in the lung bases. The heart size is normal. There is marked circumferential thickening of the distal esophagus. The liver, spleen, pancreas, and adren al glands are normal. There is a stone of the nondistended gallbladder. Cysts of the kidneys measure up to 3.4 cm on the right. No pathologically enlarged abdominal or pelvic lymph nodes are identified. There is no free intraperitoneal gas or evidence of bowel obstruction. There is moderate distention of the urinary bladder. A reservoir for a penile pump is noted in the right pelvis. There are calcifi cations of the prostate. There is mild lumbar spondylosis. There is an umbilical hernia containing f at. IMPRESSION: 1. Marked circumferential wall thickening of the distal esophagus, likely esophagitis. Direct visuali zation is recommended. Reviewed, dictated and finalized at location A. IMPRESSION: 1. Marked circumferential wall thickening of the distal esophagus, likely esoph agitis. Direct visualization is recommended.
[2022-05-19 17:16] VITALS: BP 154/90; PULSE 80; RESP 16; TEMP 36.6; O2SAT 100
[2022-05-19 19:57] LABS: Basophils Percent Auto 0.2 % (0.2-1.2); Hematocrit 34.5 % (42.0-52.0); Hemoglobin 10.5 g/dL (14.0-18.0); Immature Granulocyte Absolute 0.05 K/mm3 (0.00-0.031); Immature Granulocyte Percent A 0.4 % (0-0.5); Lymphocytes Absolute Auto 1.33 K/mm3 (0.9-3.2); Lymphocytes Percent Auto 9.9 % (18.3-44.2); Mean Corpuscular HGB Conc 30.4 g/dl (32-36); Mean Corpuscular Hemoglobin 24.4 pg (26-34); Mean Platelet Volume 9.4 fl (7.4-10.4); Monocytes Absolute Auto 0.9 K/mm3 (0.1-0.6); Monocytes Percent Auto 6.5 % (2.6-8.5); Neutrophils Absolute Auto 11.1 K/mm3 (1.3-6.7); Platelet Count Result 387 k/mm3 (150-375); Red Blood Count 4.31 M/mm3 (4.6-6.20); Red Cell Distribution Width 15.1 % (11.5-14.5); White Blood Count 13.4 K/mm3 (4.5-10.0)
[2022-05-19 20:11] LABS: Alanine Aminotransferase 18 U/L (6-50); Albumin Level 4.8 g/dL (3.5-5.1); Alkaline Phosphatase 92 U/L (38-126); Anion Gap 17 mmol/L (8-16); Aspartate Amino Transferase 21 U/L (17-59); Bilirubin,Total 1.4 mg/dL (0.2-1.3); Blood Urea Nitrogen 35 mg/dL (9-20); Calcium 10.1 mg/dL (8.4-10.2); Carbon Dioxide 38 mmol/L (22-30); Chloride 88 mmol/L (98-107); Estimated Glomerular Filt Rate 38; Glucose 371 mg/dL (65-110); Lipase 53 U/L (23-300); Potassium 3.1 mmol/L (3.4-5.0); Sodium 143 mmol/L (137-145)
[2022-05-20] MEDS: SODIUM CHLORIDE 0.9% IV 1,000 ML 999 ML IV CONT (00:55)
--- NOTE | 2022-05-20 00:55 | ED.NAVMDI ---
HPI - Nausea/Vomiting/Diarrhea General Chief complaint: Nausea/Vomiting/Diarrhea <SANTOS White Last Filed: 05/20/22 04:29> Stated complaint: vomiting <SANTOS White Last Filed: 05/20/22 04:29> Time Seen by Provider: 05/19/22 23:55 <SANTOS White Last Filed: 05/20/22 04:29> Source: patient and old records reviewed <SANTOS White Last Filed: 05/20/22 04:29> Mode of arrival: ambulatory <SANTOS White Filed: 05/20/22 04:29> Limitations: no limitations <SANTOS White Filed: 05/20/22 04:29> History of Present Illness HPI Narrative: Patient is a 67 y/o male who presents to the ED with c/o N/V. Patient reports he was seen in the ED 2 days ago for nausea and vomiting. He had a CT scan of his abdomen pelvis performed at that time which showed esophagitis. Patient does have history of frequent nausea and vomiting. He states it is always improved with a GI cocktail. Patient sees a GI specialist, Dr. Sahu. Currently, on Protonix 40 mg twice daily, Carafate, metoclopramide, promethazine. Patient was also prescribed Zofran 2 days ago, but states he was unable to keep this down. Patient reports having diffuse abdominal pain, but denies fever, diarrhea, rectal bleeding, constipation, hematemesis. Patient with recent Hx of CVA, on Eliquis. <SANTOS White Last Filed: 05/20/22 04:29> Related Data Home medications: Home Medications Medication Instructions Recorded Confirmed aspirin 81 mg capsule 81 mg PO DAILY 06/12/21 10/05/21 atorvastatin 80 mg tablet 80 mg PO DAILY 06/12/21 10/05/21 ergocalciferol (vitamin D2) 50,000 50,000 unit PO WEEKLY 06/12/21 10/05/21 unit tablet flash glucose sensor (FreeStyle 06/12/21 10/05/21 Jose J 14 Day Sensor kit) folic acid 1 mg tablet 1 mg PO DAILY 06/12/21 10/05/21 gabapentin 100 mg capsule 200 mg PO TID 06/12/21 10/05/21 promethazine 25 mg tablet 25 mg PO Q8H PRN Nausea And 06/12/21 10/05/21 Vomiting <Maddie Real PA-C - Last Filed: 05/20/22 04:29> Allergies/Adverse reactions: Allergies Allergy/AdvReac Type Severity Reaction Status Date / Time metformin Allergy Diarrhea Verified 05/17/22 11:58 pregabalin [From Lyrica] Allergy Swelling Verified 05/17/22 11:58 venlafaxine [From Effexor] AdvReac Confusion Verified 05/17/22 11:58 <Maddie Real PA-C - Last Filed: 05/20/22 04:29> Review of Systems Review of Systems: CONSTITUTIONAL: Denies fever, chills, or sweats. CARDIOVASCULAR: Denies chest pain. RESPIRATORY: Denies dyspnea. GASTROINTESTINAL: Reports diffuse ABD pain, N/V. Denies diarrhea, constipation, rectal bleeding, hematemesis. GENITOURINARY: Denies dysuria or hematuria. MUSCULOSKELETAL: Denies back pain. <Maddie Real PA-C - Last Filed: 05/20/22 04:29> All systems reviewed & are unremarkable except as noted in HPI and below <Maddie Real PA-C - Last Filed: 05/20/22 04:29> [facility] Past Medical History Medical History: Medical History Acute on chronic blood loss anemia Arthritis Benign prostatic hyperplasia Chronic kidney disease Cirrhosis Depression Diabetic peripheral neuropathy Dyslipidemia Erosive esophagitis Gastroesophageal reflux disease Hematemesis Hepatitis C Insulin dependent type 2 diabetes mellitus Tobacco abuse disorder UGIB (upper gastrointestinal bleed) Uncontrolled diabetes mellitus <Maddie Real PA-C - Last Filed: 05/20/22 04:29> Surgical History Surgical History: Surgical History No pertinent past surgical history <Maddie Real PA-C - Last Filed: 05/20/22 04:29> Social History Social History: Social History Social History: Surrogate decision maker
[2022-05-20] MEDS: ONDANSETRON INJ 4 MG/2 ML VIAL IV PUSH (00:56)
[2022-05-20] MEDS: BELLADONNA ALK/PHENOB ELIX 10 ML, MAG HYDROX/ALUMINUM HYD/SIMETH 30 ML, LIDOCAINE HCL 2... PO (00:59)
[2022-05-20] MEDS: PANTOPRAZOLE SODIUM IV 40 MG VIAL IV PUSH (01:03)
[2022-05-20 01:20] LABS: Add Urine Microscopic? YES; Appearance Urine Cloudy (Clear); Bilirubin Urine Negative (Negative); Blood Urine Negative (Negative); Color Urine Yellow (Yellow); Glucose Urine UA 3+ mg/dL (Negative); Ketones Urine Negative (Negative); Leukocyte Esterase Ur Trace LEU/UL (Negative); Mucus Urine Rare /lpf; Nitrate Urine Negative (Negative); Protein Urine 2+ mg/dL (Negative); Specific Grav Ur 1.022 (1.001-1.035); Squamous Epithelial Cell Urine Rare /hpf (Few); Urobilinogen Urine Negative mg/dL (<2.0); WBC Urine 0-3 /hpf
[2022-05-20] MEDS: POTASSIUM CHLORIDE 20 MEQ TABLET 40 MEQ PO (04:34)
== END 2022-05-20 04:33 | disposition home or self-care (01) ==
PROVIDERS: Physician Assistant; Emergency Provider Emergency Medicine
DX: K20.90 Esophagitis, unspecified without bleeding (principal); N40.0 Benign prostatic hyperplasia without lower urinary tract symptoms; E78.5 Hyperlipidemia, unspecified; K21.9 Gastro-esophageal reflux disease without esophagitis; Z86.19 Personal history of other infectious and parasitic diseases; E11.42 Type 2 diabetes mellitus with diabetic polyneuropathy; Z79.4 Long term (current) use of insulin; F17.210 Nicotine dependence, cigarettes, uncomplicated
CPT/HCPCS: 36415; 74177; 80053; 81001; 83690; 85025; 96361; 96374; 96375; 99284; A9270; C9113; J2405; J7030; Q9967

== ENCOUNTER 2022-09-27 11:46 | Outpatient (CLI) | payer MEDICARE, SELFPAY ==
[2022-09-27 12:16] LABS: Anion Gap 10 mmol/L (8-16); Blood Urea Nitrogen 15 mg/dL (9-20); Carbon Dioxide 29 mmol/L (22-30); Chloride 97 mmol/L (98-107); Potassium 3.2 mmol/L (3.4-5.0); Sodium 136 mmol/L (137-145)
[2022-09-27 12:17] LABS: Alanine Aminotransferase 15 U/L (6-50); Albumin Level 4.6 g/dL (3.5-5.1); Alkaline Phosphatase 68 U/L (38-126); Aspartate Amino Transferase 19 U/L (17-59); Calcium 9.4 mg/dL (8.4-10.2); Estimated Glomerular Filt Rate > 60; Glucose 303 mg/dL (65-110)
[2022-09-29 15:21] LABS: GGT 22 U/L (3-70)
== END 2022-09-27 11:47 | disposition home or self-care (01) ==
DX: K80.20 Calculus of gallbladder without cholecystitis without obstruction (principal)
CPT/HCPCS: 36415; 80053; 82977

== ENCOUNTER 2023-04-16 12:40 | Outpatient (CLI) | payer MEDICARE, SELFPAY ==
[2023-04-16 13:40] LABS: Basophils Absolute Auto 0.1 K/mm3 (0.0-0.1); Basophils Percent Auto 0.8 % (0.2-1.2); Eosinophils Absolute Auto 0.3 K/mm3 (0-0.3); Eosinophils Percent Auto 3.5 % (0-4.4); Hematocrit 33.7 % (42.0-52.0); Hemoglobin 11.9 g/dL (14.0-18.0); Immature Granulocyte Absolute 0.02 K/mm3 (0.00-0.031); Immature Granulocyte Percent A 0.2 % (0-0.5); Lymphocytes Absolute Auto 1.85 K/mm3 (0.9-3.2); Lymphocytes Percent Auto 20.5 % (18.3-44.2); Mean Corpuscular HGB Conc 35.3 g/dl (32-36); Mean Corpuscular Hemoglobin 30.6 pg (26-34); Mean Corpuscular Volume 86.6 fl (80-100); Mean Platelet Volume 9.6 fl (7.4-10.4); Monocytes Absolute Auto 0.7 K/mm3 (0.1-0.6); Platelet Count Result 223 k/mm3 (150-375); Red Blood Count 3.89 M/mm3 (4.6-6.20); Red Cell Distribution Width 12.7 % (11.5-14.5)
[2023-04-16 14:02] LABS: Alanine Aminotransferase 17 U/L (6-50); Albumin Level 4.3 g/dL (3.5-5.1); Alkaline Phosphatase 73 U/L (38-126); Anion Gap 8 mmol/L (8-16); Aspartate Amino Transferase 26 U/L (17-59); Bilirubin,Total 2.7 mg/dL (0.2-1.3); Blood Urea Nitrogen 18 mg/dL (9-20); Calcium 8.7 mg/dL (8.4-10.2); Carbon Dioxide 35 mmol/L (22-30); Chloride 95 mmol/L (98-107); Estimated Glomerular Filt Rate 56; Glucose 135 mg/dL (65-110); Potassium 2.4 mmol/L (3.4-5.0); Sodium 138 mmol/L (137-145)
== END 2023-04-16 12:41 | disposition home or self-care (01) ==
DX: I48.0 Paroxysmal atrial fibrillation (principal)
CPT/HCPCS: 36415; 80053; 85025

== ENCOUNTER 2023-05-10 22:16 | Observation (INO) | payer MEDICARE, SELFPAY ==
[2023-05-10] VITALS (13 sets, daily range): BP systolic 102–161; BP diastolic 69–87; PULSE 69–86; RESP 12–20; O2SAT 96–100
--- NOTE | ~2023-05-10 | XR_ITS ---
XR chest 1V portable 05/10/2023 22:38 Indication: Altered mental status Procedure: AP portable chest Comparison: Comparison to multiple prior studies sequentially, with oldest reviewed study dated 05/30. Findings: NG tube in the stomach. Heart size normal. No focal air space disease, pulmonary edema, ple ural effusion or suspected pneumothorax. No acute osseous abnormality. Impression: 1: No acute cardiopulmonary disease. Reviewed, dictated and finalized at location A. Impression: 1: No acute cardiopulmonary disease.
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
--- NOTE | ~2023-05-10 | CT_ITS ---
CT head without contrast Indication: Altered mental status COMPARISON: 04/14/2022 Technique: Serial scans were obtained through the brain without the administration of contrast. Dose reduction technique was used on this scan by utilizing automated exposure control and iterative recon struction technique. The dose-length product (DLP) was 605.33 mGy-cm. Findings: There is no evidence of intracranial hemorrhage, mass lesion, or acute infarct. The ventri cles and subarachnoid spaces are dilated, consistent with mild atrophy. Low attenuation regions are seen within the periventricular white matter bilaterally, likely representing changes from chronic mi crovascular ischemic disease. There is no evidence of edema, mass effect or midline shift. The visu alized paranasal sinuses and mastoid air cells are clear. There is focal soft tissue swelling/hematom a at the high right parietal scalp. Impression: No intracranial hemorrhage, mass, or acute infarct. Atrophy and chronic white matter changes, as above. Focal soft tissue swelling/hematoma at the high right parietal scalp. Reviewed, dictated and finalized at location . Impression: No intracranial hemorrhage, mass, or acute infarct. Atrophy and chronic white matter changes, as above. Focal soft tissue swelling/hematoma at the high right parietal scalp.
--- NOTE | ~2023-05-10 | CT_ITS ---
CT of the Abdomen and Pelvis: Indication: Abdominal pain Technique: 2.5 mm axial scans were obtained through the abdomen and pelvis following intravenous adm inistration of 100 cc of Omnipaque 350. Dose reduction technique was used on this scan by utilizing a utomated exposure control and iterative reconstruction technique. The dose-length product (DLP) was 1 119.44 mGy-cm. COMPARISON: 05/20/2022 Findings: Scans through the lung bases demonstrate wall thickening of the visualized distal esophagu s. Lung bases are clear. The liver, spleen, pancreas, adrenals and kidneys are within normal limits. Cholecystectomy clips are present. No evidence of aortic aneurysm. No lymphadenopathy. No bowel obstruction or bowel wall thickening. There is no evidence to suggest acute appendicitis. Images through the pelvis were performed. Patel catheter in place. Prostate gland is enlarged. Penile implant with reservoir present. No ascites. Impression: Wall thickening of the distal esophagus, suggestive of esophagitis. No other significant abnormality seen. Reviewed, dictated and finalized at [facility]. Impression: Wall thickening of the distal esophagus, suggestive of esophagitis. No other significant abnormality seen.
[2023-05-10] MEDS: ONDANSETRON INJ 4 MG/2 ML VIAL IV PUSH (22:42)
[2023-05-10] MEDS: PANTOPRAZOLE SODIUM IV 40 MG VIAL 80 MG IV PUSH (22:42)
[2023-05-10] MEDS: SODIUM CHLORIDE 0.9% IV 2,000 ML 999 ML IV CONT (22:43)
[2023-05-10 23:07] LABS: Basophils Percent Auto 0.1 % (0.2-1.2); Hematocrit 39.5 % (42.0-52.0); Hemoglobin 13.6 g/dL (14.0-18.0); Immature Granulocyte Absolute 0.17 K/mm3 (0.00-0.031); Immature Granulocyte Percent A 0.7 % (0-0.5); Lymphocytes Percent Auto 6.8 % (18.3-44.2); Mean Corpuscular HGB Conc 34.4 g/dl (32-36); Mean Corpuscular Hemoglobin 30.6 pg (26-34); Mean Platelet Volume 10.3 fl (7.4-10.4); Monocytes Absolute Auto 1.3 K/mm3 (0.1-0.6); Monocytes Percent Auto 5.2 % (2.6-8.5); Neutrophils Absolute Auto 21.8 K/mm3 (1.3-6.7); Neutrophils Percent Auto 87.2 % (45.5-73.1); Platelet Count Result 317 k/mm3 (150-375); Red Blood Count 4.44 M/mm3 (4.6-6.20)
[2023-05-10 23:18] LABS: Appearance Urine Clear (Clear); Bacteria Urine None Seen /hpf; Bilirubin Urine Negative (Negative); Blood Urine Negative (Negative); Color Urine Yellow (Yellow); Glucose Urine UA 3+ mg/dL (Negative); Ketones Urine Negative (Negative); Leukocyte Esterase Ur Negative LEU/UL (Negative); Nitrate Urine Negative (Negative); Protein Urine 3+ mg/dL (Negative); RBC Urine 0-2 /hpf (0-2); Squamous Epithelial Cell Urine None seen /hpf (Few); Urobilinogen Urine 0.2 mg/dL (<2.0); WBC Urine 0-5 /hpf
[2023-05-10 23:18] LABS: INR 1.1; Partial Thromboplastin Time 30.5 SECONDS (22.3-36.8); Prothrombin Time 14.8 Seconds (11.1-14.7)
[2023-05-10 23:19] LABS: Add Urine Microscopic? YES
--- NOTE | 2023-05-10 23:25 | PC.NURSE ---
Patient report given to VALERIA Garzon. All questions answered and care of patient transferred.
[2023-05-10 23:29] LABS: Albumin Level 4.5 g/dL (3.5-5.1); Alkaline Phosphatase 83 U/L (38-126); Aspartate Amino Transferase 35 U/L (17-59); Bilirubin,Total 2.3 mg/dL (0.2-1.3); Blood Urea Nitrogen 58 mg/dL (9-20); Calcium 9.6 mg/dL (8.4-10.2); Carbon Dioxide > 40 mmol/L (22-30); Chloride 78 mmol/L (98-107); Estimated CRCL calculation 30 ml/min; Estimated Glomerular Filt Rate 34; Glucose 297 mg/dL (65-110); Lipase 54 U/L (23-300); Potassium 2.3 mmol/L (3.4-5.0); Sodium 140 mmol/L (137-145)
[2023-05-10 23:30] LABS: Lactic Acid Reflex 5.9 mmol/L (0.7-2.0)
[2023-05-10 23:31] LABS: Troponin I 0.034 ng/mL (0.000-0.034)
[2023-05-10 23:50] LABS: Alveolar/Arterial O2 Gradient 16.1 mmHg; Base Excess ABG 14.9 mEq/l (+/-2.0); Device ROOM AIR; Fractional Inspired Oxygen 21 %; HCO3 ABG 40.6 mEq/l (22.0-26.0); Modified Allen's Test Pass; Oxygen Content ABG 16.9 %vol (16.0-22.0); Oxygen Saturation ABG 94.6 % (95.0-100.0); Oxyhemoglobin 90.8 % THb (90.0-100.0); PCO2 ABG 54.4 mmHg (35.0-45.0); PO2 ABG 68.5 mmHg (80.0-100.0); PO2 FiO2 Ratio Arterial Blood 3.26 %; Site Drawn RIGHT RADIAL; Total Hemoglobin 13.2 g/dL (12.0-18.0); pH ABG 7.491 (7.350-7.450)
[2023-05-11] VITALS (51 sets, daily range): BP systolic 131–166; BP diastolic 63–98; PULSE 75–100; RESP 12–22; TEMP 36.3–37.2; O2SAT 93–100; BMI 26.2
[2023-05-11 00:10] LABS: Ammonia 12 umol/L (9-30)
[2023-05-11] MEDS: SODIUM CHLORIDE 0.9% IV 1,000 ML 999 ML IV CONT ×2 (00:54→00:55)
[2023-05-11 01:17] LABS: Alanine Aminotransferase 41 U/L (6-50)
[2023-05-11 02:00] LABS: Reflex Lactic Acid Yes or No Add Lactic
[2023-05-11 03:00] LABS: Lactic Acid 2.6 mmol/L (0.7-2.0)
--- NOTE | 2023-05-11 03:27 | ED.GENADULT ---
HPI - General Adult General Chief complaint: GI Bleed Stated complaint: GI BLEED, HYPOTENSIVE, ANXIOUS Time Seen by Provider: 05/10/23 22:24 History of Present Illness HPI narrative: Patient 68-year-old gentleman presents emerged part with chief complaint of vomiting black material. Patient has history of gastritis also was on a DOAC and has had history of GI bleeds before in the past. The patient was very weak and has been continually vomiting. Patient states that the symptoms or not improved by anything and reports he continues to vomit. Related Data Home Medications Medication Instructions Recorded Confirmed aspirin 81 mg capsule 81 mg PO DAILY 06/12/21 10/05/21 atorvastatin 80 mg tablet 80 mg PO DAILY 06/12/21 10/05/21 ergocalciferol (vitamin D2) 50,000 50,000 unit PO WEEKLY 06/12/21 10/05/21 unit tablet flash glucose sensor (FreeStyle 06/12/21 10/05/21 Jose J 14 Day Sensor kit) folic acid 1 mg tablet 1 mg PO DAILY 06/12/21 10/05/21 gabapentin 100 mg capsule 200 mg PO TID 06/12/21 10/05/21 promethazine 25 mg tablet 25 mg PO Q8H PRN Nausea And 06/12/21 10/05/21 Vomiting Allergies Allergy/AdvReac Type Severity Reaction Status Date / Time metformin Allergy Diarrhea Verified 05/17/22 11:58 pregabalin [From Lyrica] Allergy Swelling Verified 05/17/22 11:58 venlafaxine [From Effexor] AdvReac Confusion Verified 05/17/22 11:58 Review of Systems Review of Systems: A 10 system review of systems was completed on the patient and is negative except for what is stated in the HPI. Nursing and ancillary documentation was reviewed. [facility] Past Medical History Medical History Acute on chronic blood loss anemia Arthritis Benign prostatic hyperplasia Chronic kidney disease Cirrhosis Depression Diabetic peripheral neuropathy Dyslipidemia Erosive esophagitis Gastroesophageal reflux disease Hematemesis Hepatitis C Insulin dependent type 2 diabetes mellitus Tobacco abuse disorder UGIB (upper gastrointestinal bleed) Uncontrolled diabetes mellitus Surgical History Surgical History No pertinent past surgical history Social History Social History Social History: Surrogate decision maker: Mahnaz Christopher, spouse. Code status: Full code. Smoking packs per day: 1 Smoking cigarettes per day: 20.0 Years smoked: 40 Smoking pack-years: 40.00 Smoking status: Current every day smoker Tobacco type: cigarettes Second hand tobacco smoke exposure: Yes Additional smoking assessment comments: pt's spouse says pt smokes between 10 cigarettes and a pack daily Alcohol intake: never Substance use: never Substance use type: does not use Additional living arrangements comments: The patient lives with his in [place]. Additional occupation/education comments: Retired. Spiritual care concerns: No Exam Narrative: GENERAL: Ill-appearing in moderate distress actively vomiting coffee-ground material HEAD: Normocephalic, atraumatic. EYES: PERRLA and EOMI. ENT: Nares clear, no rhinorrhea or epistaxis. Mucous membranes moist. NECK: Supple. CHEST: Clear to auscultation. No respiratory distress. HEART: Regular rate and rhythm. No murmur heard. Normal peripheral pulses. ABDOMEN: Soft, nontender, nondistended, normal active bowel sounds. EXTREMITIES: Normal range of motion. No edema. SKIN: Warm, dry, no rash. NEURO: No focal deficits. Alert and oriented x3. PSYCH: Normal mood and affect. Course Vital Signs Vital signs: Vital Signs Pulse Rate 86 05/10/23 22:14 Respiratory Rate 20 05/10/23 22:14 Blood Pressure 107/69 05/10/23 22:14 Pulse Oximetry 99 05/10/23 22:14 Oxygen Delivery Room Air 05/10/23 22:14 Pulse Rate 69 05/10/23 23:16 Respiratory Rate 19 05/10/23 23:16 Bl
--- NOTE | 2023-05-11 04:00 | PC.NURSE ---
1,000 ml output through NG
[2023-05-11] MEDS: PIPERACILLN/TAZ 3.375GM/NS50ML 3.375 GM/50 ML BAG IVPB (04:19)
[2023-05-11] MEDS: PANTOPRAZOLE SODIUM IV 80 MG in SODIUM CHLORIDE 0.9% IV 500 ML 50 MG IV CONT (04:19)
--- NOTE | 2023-05-11 05:10 | ADMGEN ---
This patient, Jonathon Thurston Candi, was admitted to IMU Room 231-01. Patient/family oriented to hospital policies and general routines including ID bracelet, bed and alarms, visiting hours, pain management, procedures, bathroom and other care routines, personal items, smoking policy, room service/diet, and visiting hours. Information on how to activate the Rapid Response Team has been discussed. Patient/Family are encouraged to report perceived risks to care and to ask questions if they do not understand what they are told or what they should do.
[2023-05-11] MEDS: SODIUM CHLORIDE 0.9% IV 1,000 ML 125 ML IV CONT (05:24)
[2023-05-11] MEDS: POTASSIUM CHLORIDE INJ 40 MEQ in SODIUM CHLORIDE 0.9% IV 500 ML 130 MEQ IVPB ×3 (05:24→20:30)
[2023-05-11 06:39] LABS: Hematocrit 34.6 % (42.0-52.0); Hemoglobin 11.8 g/dL (14.0-18.0)
--- NOTE | 2023-05-11 07:34 | PM.IMHP ---
H&P: HPI History of Present Illness Date/Time: 05/11/23 07:34 Chief Complaint: Vomiting black emesis Narrative: Patient 68-year-old gentleman with history of paroxysmal AFib on Eliquis, diabetes on insulin, presents emerged part with chief complaint of vomiting black material.? Patient has been having epigastric pain in past 2 days, associated with nausea vomiting with black emesis. Patient also noticed black stool in past 2 days. The patient was very weak and has been continually vomiting.? Patient came to ED for evaluation. In the ED, patient was found anemia, hemoglobin close to baseline. In the ED,an NG tube was placed and the patient and the patient has a large amount of coffee-ground material being suctioned. Initial lactic acid was significantly elevated the patient received fluid resuscitation and subsequently the lactate has come down. Patient did have a elevated BUN and creatinine and the patient has received hydration. CT scan of the abdomen pelvis showed evidence of gastritis. In the ED, patient received IV Protonix saline boluses 80 mg and will be started on a Protonix drip.? In the ED, patient was found have leukocytosis with a white count of 25,[address] scan there was some possible colitis the patient was started on Zosyn, anemia hemoglobin 11.8 below the baseline 13.6 yesterday [facility] Past Medical History Medical History (Updated 05/11/23 @ 07:52 by Vianney Mendez MD) Acute on chronic blood loss anemia Arthritis Benign prostatic hyperplasia Chronic kidney disease Cirrhosis Depression Diabetic peripheral neuropathy Dyslipidemia Erosive esophagitis Gastroesophageal reflux disease Hematemesis Hepatitis C Insulin dependent type 2 diabetes mellitus Sepsis Tobacco abuse disorder UGIB (upper gastrointestinal bleed) Uncontrolled diabetes mellitus Surgical History Surgical History No pertinent past surgical history Social History Social History Social History: Surrogate decision maker: Mahnaz Christopher, spouse. Code status: Full code. Smoking packs per day: 0.25 Smoking cigarettes per day: 5.0 Years smoked: 30 Smoking pack-years: 7.50 Smoking status: Current every day smoker Tobacco type: cigarettes Second hand tobacco smoke exposure: Yes Additional smoking assessment comments: pt's spouse says pt smokes between 10 cigarettes and a pack daily Alcohol intake: never Substance use: never Substance use type: does not use Lack of Transportation: No Lack of Food: Never True Current Housing: I Have Housing Concerned About Future Housing: No Difficulty Paying Gas/Electric Bills: No Difficulty Paying for Meds: No Currently Unemployed: No Education: Decline to Answer Difficulty w/ Childcare or Family Care: No Additional living arrangements comments: The patient lives with his in [place]. Additional occupation/education comments: Retired. Spiritual care concerns: No Meds Home Medications and Allergies Home Medications Medication Instructions Recorded Confirmed Type atorvastatin 80 mg tablet 80 mg PO DAILY 06/12/21 05/11/23 History ergocalciferol (vitamin D2) 50,000 50,000 unit PO WEEKLY 06/12/21 05/11/23 History unit tablet flash glucose sensor (FreeStyle 06/12/21 05/11/23 History Jose J 14 Day Sensor kit) folic acid 1 mg tablet 1 mg PO DAILY 06/12/21 05/11/23 History pantoprazole 40 mg tablet,delayed 40 mg PO BID #60 tabs 10/07/21 05/11/23 Rx release (Protonix) sucralfate 100 mg/mL oral 1,000 mg (10 mL) PO ACHS #1,000 mL 10/07/21 05/11/23 Rx suspension ondansetron HCl 4 mg tablet 4 mg PO Q4H #10 tabs 05/17/22 05/11/23 Rx apixaban 2.5 mg tablet (Eliquis) 2.5 mg PO BID 05/11/23 05/11/23 History baclofen 10 mg tablet 5 mg PO TID PRN muscle spasms 05/11/23 05/11/23 History chlorpromazine 25 mg tablet 25 mg PO TID PRN
[2023-05-11 08:01] LABS: Basophils Percent Auto 0.1 % (0.2-1.2); Hematocrit 34.7 % (42.0-52.0); Hemoglobin 11.8 g/dL (14.0-18.0); Immature Granulocyte Absolute 0.16 K/mm3 (0.00-0.031); Immature Granulocyte Percent A 0.6 % (0-0.5); Lymphocytes Absolute Auto 1.62 K/mm3 (0.9-3.2); Lymphocytes Percent Auto 5.7 % (18.3-44.2); Mean Corpuscular Hemoglobin 30.8 pg (26-34); Mean Corpuscular Volume 90.6 fl (80-100); Mean Platelet Volume 10.5 fl (7.4-10.4); Monocytes Absolute Auto 1.9 K/mm3 (0.1-0.6); Monocytes Percent Auto 6.7 % (2.6-8.5); Neutrophils Absolute Auto 24.6 K/mm3 (1.3-6.7); Neutrophils Percent Auto 86.9 % (45.5-73.1); Platelet Count Result 281 k/mm3 (150-375); Red Blood Count 3.83 M/mm3 (4.6-6.20); White Blood Count 28.3 K/mm3 (4.5-10.0)
[2023-05-11 09:07] LABS: Hemoglobin 10.8 g/dL (14.0-18.0)
[2023-05-11 09:18] LABS: Lactic Acid Reflex 0.8 mmol/L (0.7-2.0)
[2023-05-11 09:20] LABS: Alanine Aminotransferase 17 U/L (6-50); Albumin Level 3.5 g/dL (3.5-5.1); Alkaline Phosphatase 70 U/L (38-126); Aspartate Amino Transferase 24 U/L (17-59); Bilirubin,Total 1.9 mg/dL (0.2-1.3); Blood Urea Nitrogen 45 mg/dL (9-20); Calcium 7.6 mg/dL (8.4-10.2); Carbon Dioxide > 40 mmol/L (22-30); Chloride 95 mmol/L (98-107); Estimated CRCL calculation 41 ml/min; Estimated Glomerular Filt Rate 49; Glucose 59 mg/dL (65-110); Potassium 2.4 mmol/L (3.4-5.0); Sodium 143 mmol/L (137-145)
[2023-05-11] MEDS: DEXTROSE 50% 25 GM/50 ML SYRINGE IV PUSH (09:28)
[2023-05-11 09:53] LABS: Glucose Point of Care 53 mg/dl (65-105)
[2023-05-11 09:53] LABS: Glucose Point of Care 110 mg/dl (65-105)
[2023-05-11] MEDS: DEXTROSE 5%/0.9% SOD CHL 1,000 ML 125 ML IV CONT (10:30)
[2023-05-11 11:58] LABS: Glucose Point of Care 84 mg/dl (65-105)
[2023-05-11] MEDS: hydrALAZINE HCL 20 MG/ML VIAL 10 MG IV PUSH (12:23)
[2023-05-11] MEDS: PIPERACILLIN/TAZ 2.25G/NS 50ML 2.25 GM/50 ML BAG IVPB ×2 (12:23→18:51)
--- NOTE | 2023-05-11 14:59 | WPDGICN ---
Assessment and Plan Assessment and plan (1) Acute upper GI bleed: Code(s): K92.2 - Gastrointestinal hemorrhage, unspecified Status: Acute Assessment and Plan: no more nausea but continue to monitor continue with iv protonix, most likely he has again esophagitis will do EGD, we could not do it today because low potassium despite treatment, probably Sunday ok to advance diet as tolerated for now (2) Acute hypokalemia: Code(s): E87.6 - Hypokalemia Status: Acute Assessment and Plan: treated (3) Acute kidney injury: Code(s): N17.9 - Acute kidney failure, unspecified Status: Acute Assessment and Plan: iv fluids monitor (4) Leukocytosis: Code(s): D72.829 - Elevated white blood cell count, unspecified Status: Acute (5) SIRS (systemic inflammatory response syndrome): Code(s): R65.10 - Systemic inflammatory response syndrome (SIRS) of non-infectious origin without acute organ dysfunction Status: Acute Assessment and Plan: started on abx here wigh high wbc, also h/o cirrhosis and gib (6) Acute on chronic blood loss anemia: Code(s): D62 - Acute posthemorrhagic anemia Status: Acute (7) Erosive esophagitis: Code(s): K22.10 - Ulcer of esophagus without bleeding Status: Acute Assessment and Plan: he is on protonix and carafate at home hold eliquis for now (8) Uncontrolled diabetes mellitus: Code(s): E11.65 - Type 2 diabetes mellitus with hyperglycemia Status: Acute (9) Cirrhosis: Code(s): K74.60 - Unspecified cirrhosis of liver Status: Acute Assessment and Plan: due to HCV but already treated he is seeing hepatology in [facility] Consult Note Consult date/time: 05/11/23 14:59 Reason for consult: coffee ground emesis, abnormal CT scan of esophagus, esophagitis. 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 He has previous hospitalization 05/2021 with hematemesis due to severe erosive esophagitis then admitted again 09/2021 with similar finding. He also was started on eliquis about 1 month ago. He is here with few days of nausea then coffee ground emesis, unable to keep anything down. NGT was placed in the ER but discontinued since, CT scan showed thickening esophagus c/w esophagitis, given IV Protonix 80 mg and started on a Protonix drip.?Had leukocytosis with a white count of 25,000 and was started on Zosyn, hemoglobin 11.8. He is feeling better now. Review of Systems Constitutional: Constitutional: Reports fatigue Eyes: Eyes: Denies blurry vision ENT: Reports Normal hearing present Cardiovascular: Cardiovascular: Denies chest pain Respiratory: Respiratory: Denies cough Gastrointestinal: Gastrointestinal: Reports nausea and Reports vomiting Genitourinary: Genitourinary: Denies dysuria Musculoskeletal: Musculoskeletal: Denies neck pain Integumentary/Breasts: Skin/Breast: Denies rash Neurologic: Denies Abnormal speech present Psychiatric: Psychiatric: Denies behavioral changes [facility] Past Medical History Medical History (Updated 05/11/23 @ 07:52 by Vianney Mendez MD) Acute on chronic blood loss anemia Arthritis Benign prostatic hyperplasia Chronic kidney disease Cirrhosis Depression Diabetic peripheral neuropathy Dyslipidemia Erosive esophagitis Gastroesophageal reflux disease Hematemesis Hepatitis C Insulin dependent type 2 diabetes mellitus Sepsis Tobacco abuse disorder UGIB (upper gastrointestinal bleed) Uncontrolled diabetes mellitus Surgical History Surgical History No pertinent past surgical history Social History Social History (Reviewed 05/11/23 @ 03:28
[2023-05-11 16:08] LABS: Hematocrit 34.3 % (42.0-52.0); Hemoglobin 11.2 g/dL (14.0-18.0)
[2023-05-11 16:48] LABS: Glucose Point of Care 275 mg/dl (65-105)
[2023-05-11 17:58] LABS: Potassium 3.2 mmol/L (3.4-5.0)
[2023-05-11] MEDS: PANTOPRAZOLE SODIUM IV 40 MG VIAL IV PUSH (20:30)
[2023-05-11 20:38] LABS: Glucose Point of Care 208 mg/dl (65-105)
[2023-05-11 21:29] LABS: Hematocrit 31.9 % (42.0-52.0); Hemoglobin 10.6 g/dL (14.0-18.0)
[2023-05-12] VITALS: BP 162/66; PULSE 82; PULSE 96; RESP 20; TEMP 36.4; O2SAT 100; O2SAT 97
[2023-05-12] MEDS: PIPERACILLIN/TAZ 2.25G/NS 50ML 2.25 GM/50 ML BAG IVPB (00:12)
[2023-05-12 01:45] VITALS: PULSE 78
[2023-05-12 03:35] VITALS: BP 157/85; PULSE 91; RESP 20; TEMP 36.8; O2SAT 99
[2023-05-12 03:57] VITALS: PULSE 68; RESP 20; O2SAT 99
[2023-05-12 05:07] LABS: Basophils Percent Auto 0.1 % (0.2-1.2); Eosinophils Absolute Auto 0.1 K/mm3 (0-0.3); Eosinophils Percent Auto 0.4 % (0-4.4); Hematocrit 32.5 % (42.0-52.0); Hemoglobin 10.8 g/dL (14.0-18.0); Immature Granulocyte Absolute 0.12 K/mm3 (0.00-0.031); Immature Granulocyte Percent A 0.6 % (0-0.5); Lymphocytes Absolute Auto 2.48 K/mm3 (0.9-3.2); Lymphocytes Percent Auto 12.3 % (18.3-44.2); Mean Corpuscular HGB Conc 33.2 g/dl (32-36); Mean Corpuscular Hemoglobin 30.5 pg (26-34); Mean Corpuscular Volume 91.8 fl (80-100); Mean Platelet Volume 9.7 fl (7.4-10.4); Monocytes Absolute Auto 0.9 K/mm3 (0.1-0.6); Monocytes Percent Auto 4.6 % (2.6-8.5); Neutrophils Absolute Auto 16.4 K/mm3 (1.3-6.7); Platelet Count Result 222 k/mm3 (150-375); Red Blood Count 3.54 M/mm3 (4.6-6.20); Red Cell Distribution Width 11.8 % (11.5-14.5); White Blood Count 20.1 K/mm3 (4.5-10.0)
[2023-05-12 05:28] VITALS: PULSE 74
[2023-05-12 05:31] LABS: Alanine Aminotransferase 18 U/L (6-50); Albumin Level 3.6 g/dL (3.5-5.1); Alkaline Phosphatase 72 U/L (38-126); Anion Gap 5 mmol/L (8-16); Aspartate Amino Transferase 24 U/L (17-59); Bilirubin,Total 2.2 mg/dL (0.2-1.3); Blood Urea Nitrogen 29 mg/dL (9-20); Calcium 7.7 mg/dL (8.4-10.2); Carbon Dioxide 36 mmol/L (22-30); Chloride 100 mmol/L (98-107); Estimated CRCL calculation 43 ml/min; Estimated Glomerular Filt Rate 52; Glucose 227 mg/dL (65-110); Potassium 3.2 mmol/L (3.4-5.0); Sodium 141 mmol/L (137-145)
[2023-05-12 08:00] VITALS: BP 159/87; PULSE 100; PULSE 112; RESP 20; TEMP 37.2; O2SAT 100
[2023-05-12 08:45] LABS: Glucose Point of Care 331 mg/dl (65-105)
[2023-05-12] MEDS: INSULIN ASPART (*BKC) 100 UNITS/ML SUB-Q (09:27)
[2023-05-12] MEDS: PANTOPRAZOLE SODIUM IV 40 MG VIAL IV PUSH (09:30)
--- NOTE | 2023-05-12 09:45 | PM.IMPN ---
Progress Note: A&P Assessment and Plan (1) Acute upper GI bleed: Code(s): K92.2 - Gastrointestinal hemorrhage, unspecified Status: Acute (2) Colitis: Code(s): K52.9 - Noninfective gastroenteritis and colitis, unspecified Status: Acute (3) Leukocytosis: Code(s): D72.829 - Elevated white blood cell count, unspecified Status: Acute (4) SIRS (systemic inflammatory response syndrome): Code(s): R65.10 - Systemic inflammatory response syndrome (SIRS) of non-infectious origin without acute organ dysfunction Status: Acute (5) Acute on chronic blood loss anemia: Code(s): D62 - Acute posthemorrhagic anemia Status: Acute (6) Gastroesophageal reflux disease: Code(s): K21.9 - Gastro-esophageal reflux disease without esophagitis Status: Acute (7) Cirrhosis: Code(s): K74.60 - Unspecified cirrhosis of liver Status: Acute (8) Sepsis: Code(s): A41.9 - Sepsis, unspecified organism Status: Acute Plan Acute GI bleeding Patient has history GERD, sign ED with a chief complaint of nausea vomiting with black emesis Patient is on Eliquis CT scan of the abdomen pelvis showed evidence of gastritis. Patient received IV Protonix saline boluses 80 mg and Protonix drip. Change to Protonix 40 mg q.12 hours, full liquid diet per GI, plans EGD on Acute infective colitis ? Patient does have significant leukocytosis with a white count of 25,[address] scan there was some possible colitis the patient received Zosyn., continue Zosyn Patient received fluid resuscitation continue normal saline 125 mL/hour Follow-up stool culture and C diff screening Sepsis Patient has leukocytosis 25,000, tachycardia tachypnea, lactic acidosis Sepsis versus SIRS, possible from infection acute infective colitis Antibiotics see above Received fluid resuscitation Follow-up blood culture, stool culture and C diff screening Now blood pressure stable, leukocytosis improving Acute blood loss anemia Hemoglobin dropped significantly from baseline Follow-up CBC, hemoglobin to 6 hour scheduled Transfuse as needed No hemoglobin stable LAURYN on CKD, hypokalemia POA Likely resulting from bleeding, hypovolemia Start normal saline with potassium chloride 20 20 mg and 100 mL/hour Approximates AFib Patient has sinus rhythm now Hold Eliquis p.o. Telemetry monitoring Type 2 diabetes Hold insulin during p.o. Start insulin sliding scale q.6 hour Hold Eliquis Hold rest oral medications for hypertension, hyperlipidemia during p.o., chronic blood pressure stable new Subjective Date/time seen: 05/12/23 09:45 Interval history: Per nurse report, patient family requested to leave AMA. Before I arrived in patient's room, patient left ready Exam Narrative: Unable to examined patient, patient left AMA before I arrived Objective Data Vital Signs Vital Signs: Vital Signs - 24 hr 05/11/23 10:00 05/11/23 11:39 05/11/23 12:00 Temperature 98.7 F Pulse Rate 75 80 83 Respiratory Rate 20 Blood Pressure 161/85 H Pulse Oximetry 97 Oxygen Delivery 05/11/23 12:00 05/11/23 14:00 05/11/23 16:00 Temperature 98.9 F Pulse Rate 94 92 Respiratory Rate 14 Blood Pressure 161/90 H Pulse Oximetry 100 Oxygen Delivery Room Air 05/11/23 16:00 05/11/23 18:00 05/11/23 16:00 Temperature Pulse Rate 100 92 Respiratory Rate Blood Pressure Pulse Oximetry Oxygen Delivery Room Air 05/11/23 19:51 05/11/23 20:00 05/11/23 20:00 Temperature 98 F Pulse Rate 91 76 76 Respiratory Rate 20 20 Blood Pressure 143/83 H Pulse Oximetry 100 100 Oxygen Delivery Room Air 05/11/23 22:00 05/12/23 00:00 05/12/23 00:00 Temperature Pulse Rate 77 82 82 Respiratory Rate 20 Blood Pressure Pulse Oximetry 100 Oxygen Delivery Room Air 05/12/23 00:00 05/12/23 01:45 05/12/23 03:35 Temperature 97.6 F 98.3 F
--- NOTE | 2023-05-12 15:26 | PM.DS ---
DS: Admitting Diagnosis Discharge Date 05/12/23 Admitting Diagnosis (1) Acute upper GI bleed: ?Code(s): K92.2 - Gastrointestinal hemorrhage, unspecified ?Status:?Acute (2) Colitis: ?Code(s): K52.9 - Noninfective gastroenteritis and colitis, unspecified ?Status:?Acute (3) Leukocytosis: ?Code(s): D72.829 - Elevated white blood cell count, unspecified ?Status:?Acute (4) SIRS (systemic inflammatory response syndrome): ?Code(s): R65.10 - Systemic inflammatory response syndrome (SIRS) of non-infectious origin without acute organ dysfunction ?Status:?Acute (5) Acute on chronic blood loss anemia: ?Code(s): D62 - Acute posthemorrhagic anemia ?Status:?Acute (6) Gastroesophageal reflux disease: ?Code(s): K21.9 - Gastro-esophageal reflux disease without esophagitis ?Status:?Acute (7) Cirrhosis: ?Code(s): K74.60 - Unspecified cirrhosis of liver ?Status:?Acute (8) Sepsis: ?Code(s): A41.9 - Sepsis, unspecified organism DS: Discharge Diagnosis Discharge Diagnosis (1) Acute upper GI bleed: Code(s): K92.2 - Gastrointestinal hemorrhage, unspecified Status: Acute (2) Colitis: Code(s): K52.9 - Noninfective gastroenteritis and colitis, unspecified Status: Acute (3) Leukocytosis: Code(s): D72.829 - Elevated white blood cell count, unspecified Status: Acute (4) SIRS (systemic inflammatory response syndrome): Code(s): R65.10 - Systemic inflammatory response syndrome (SIRS) of non-infectious origin without acute organ dysfunction Status: Acute (5) Acute on chronic blood loss anemia: Code(s): D62 - Acute posthemorrhagic anemia Status: Acute (6) Gastroesophageal reflux disease: Code(s): K21.9 - Gastro-esophageal reflux disease without esophagitis Status: Acute (7) Cirrhosis: Code(s): K74.60 - Unspecified cirrhosis of liver Status: Acute (8) Sepsis: Code(s): A41.9 - Sepsis, unspecified organism Status: Acute DS: Summary Hospital Course Hospital Course: Patient 68-year-old gentleman with history of paroxysmal AFib on Eliquis, diabetes on insulin, presents emerged part with chief complaint of vomiting black material.? Patient has been having epigastric pain in past 2 days, associated with nausea vomiting with black emesis.? Patient also noticed black stool in past 2 days.? The patient was very weak and has been continually vomiting.? Patient came to ED for evaluation.? In the ED, patient was found anemia, hemoglobin close to baseline.? In the ED,an NG tube was placed and the patient and the patient has a large amount of coffee-ground material being suctioned. Initial lactic acid was significantly elevated the patient received fluid resuscitation and subsequently the lactate has come down. Patient did have a elevated BUN and creatinine and the patient has received hydration. CT scan of the abdomen pelvis showed evidence of gastritis.? In the ED, patient? received IV Protonix saline boluses 80 mg and will be started on a Protonix drip.? In the ED, patient was found have leukocytosis with a white count of 25,[address] scan there was some possible colitis the patient was started on Zosyn, anemia hemoglobin 11.8? below the baseline 13.6 The following med issues have been addressed during hospitalization Acute GI bleeding Patient has history GERD, sign ED with a chief complaint of nausea vomiting with black emesis Patient is on Eliquis CT scan of the abdomen pelvis showed evidence of gastritis. Patient received IV Protonix saline boluses 80 mg and Protonix drip. Change to Protonix 40 mg q.12 hours, full liquid diet per GI, plans EGD on Acute infective colitis ? Patient does have significant leukocytosis with a white count of 25,[address] scan there was some possible colitis the patient received Zosyn., continue Zosyn Patient received fluid resuscitation continue n
== END 2023-05-12 10:06 | disposition left against medical advice (07) ==
LOC: ANHED 05-11 03:31 → ANHIMU 05-11 05:46
PROVIDERS: Internal Medicine; Admitting Provider Hospitalist; Emergency Provider Emergency Medicine; Visit Provider Hospitalist
DX: A41.9 Sepsis, unspecified organism (principal); K52.9 Noninfective gastroenteritis and colitis, unspecified; K92.2 Gastrointestinal hemorrhage, unspecified; E87.6 Hypokalemia; N17.9 Acute kidney failure, unspecified; D72.829 Elevated white blood cell count, unspecified; E78.5 Hyperlipidemia, unspecified; Z93.1 Gastrostomy status; I48.0 Paroxysmal atrial fibrillation; E11.22 Type 2 diabetes mellitus with diabetic chronic kidney disease; R74.02 Elevation of levels of lactic acid dehydrogenase [LDH]; N18.9 Chronic kidney disease, unspecified; E11.65 Type 2 diabetes mellitus with hyperglycemia; E11.42 Type 2 diabetes mellitus with diabetic polyneuropathy; D62 Acute posthemorrhagic anemia; K22.10 Ulcer of esophagus without bleeding; K74.60 Unspecified cirrhosis of liver; K21.9 Gastro-esophageal reflux disease without esophagitis; F32.A Depression, unspecified; M19.90 Unspecified osteoarthritis, unspecified site; N40.0 Benign prostatic hyperplasia without lower urinary tract symptoms; F17.210 Nicotine dependence, cigarettes, uncomplicated; Z86.19 Personal history of other infectious and parasitic diseases; Z79.01 Long term (current) use of anticoagulants; Z79.82 Long term (current) use of aspirin; Z79.4 Long term (current) use of insulin; Z79.891 Long term (current) use of opiate analgesic; Z79.899 Other long term (current) drug therapy
CPT/HCPCS: 36415; 36600; 70450; 71045; 74177; 80053; 81001; 82140; 82805; 82948; 83605; 83690; 83735; 84132; 84484; 85014; 85018; 85025; 85610; 85730; 86850; 86900; 86901; 87040; 96361; 96365; 96375; 96376; 99285; C9113; G0378; J0360; J1815; J2405; J2543; J3480; J7030; J7040; J7042; Q9967

== ENCOUNTER 2023-06-22 16:29 | Inpatient (IN) | payer MEDICARE, SELFPAY ==
[2023-06-22] VITALS (37 sets, daily range): BP systolic 57–151; BP diastolic 40–97; PULSE 68–92; RESP 12–31; TEMP 36.6; O2SAT 95–100; BMI 25.1
--- NOTE | ~2023-06-22 | CT_ITS ---
EXAMINATION: CTA brain carotid DATE: 06/23/2023 16:05 INDICATION: acute cva TECHNIQUE: Computed tomographic angiography (CTA) of the head and neck was performed with 100 mL Omni paque-350 intravenous contrast. The dose-length product was 1227.33 mGy-cm. Maximum intensity project ion and volume rendered 3D-reconstructions were created by the technologist on a separate workstation . COMPARISON: CT brain, same date. FINDINGS: CTA HEAD: No large vessel occlusion, aneurysm, high flow vascular malformation, nidus or extravasation. Patent veins. Symmetric proximal enhancement. CTA NECK: Aortic arch and proximal great vessels: Bovine arch. Mild atherosclerotic calcifications. Right common carotid, carotid bifurcation, and internal carotid artery: Calcified plaque at the bifur cation.There is 0% stenosis of the proximal right internal carotid artery relative to normal distal a rtery lumen diameter (NASCET criteria). Left common carotid, carotid bifurcation, and internal carotid artery: Calcified plaque at the bifurc ation.There is 0% stenosis of the proximal left internal carotid artery relative to normal distal art pierre lumen diameter (NASCET criteria). Vertebral arteries: No significant plaque or stenosis. Right vertebral artery is dominant, Other findings: Dental caries. Periodontal disease. Moderate mucosal thickening and retention cyst/po lyp in the right maxillary sinus. IMPRESSION: No large vessel occlusion. No significant carotid or vertebral artery stenosis. Reviewed, dictated and finalized at location K. PATTERNMAKER APPRENTICE
--- NOTE | ~2023-06-22 | CT_ITS ---
EXAMINATION: CT brain wo con INDICATION: Confusion COMPARISON: 05/11/2023 TECHNIQUE: Standard unenhanced head CT. The dose-length product (DLP) was 681.00 mGy-cm. The mA was a djusted according to patient size. Iterative reconstruction technique was employed. FINDINGS: No acute intraparenchymal hemorrhage. No evidence of mass lesion. No evidence of acute infa rction. Again noted are old lacunar infarcts of the left daniella and bilateral basal ganglia. There is m ild periventricular and subcortical hypodensity probably related to small vessel ischemic disease. Th ere is mild prominence of the sulci and ventricles related to cerebral atrophy. Intracranial calcifie d cerebral atherosclerosis is noted. No extra-axial collections. No mass effect or midline shift. Elba nges in the globes are likely from ocular lens surgery. The visualized sinuses and mastoid air cells are well aerated. There is chronic focal scalp soft tissue swelling in the right parietal region. IMPRESSION: 1. Areas of prior infarction without acute intracranial abnormality. 2. Age related findings. Reviewed, dictated and finalized at location A. ASSEMBLER
--- NOTE | ~2023-06-22 | CT_ITS ---
CT of the Abdomen and Pelvis: Indication: Abdominal pain Technique: 2.5 mm axial scans were obtained through the abdomen and pelvis following intravenous adm inistration of 100 cc of Omnipaque 350. Dose reduction technique was used on this scan by utilizing a utomated exposure control and iterative reconstruction technique. The dose-length product (DLP) was 9 78.92 mGy-cm. COMPARISON: 06/22/2023 Findings: Scans through the lung bases are unremarkable. Small hiatal hernia noted. The liver, spleen, pancreas, adrenals and kidneys are within normal limits. Cholecystectomy clips are present. No evidence of aortic aneurysm. No lymphadenopathy. Again noted is a relative abrupt caliber change at the sigmoid colon, with prominent stool and fluid distention of large bowel proximal to this level. Small bowel loops are nondistended. Images through the pelvis were performed. Urinary bladder wall distended. Prostate gland is prominent with coarse calcifications, stable from prior exam. Penile prosthesis with reservoir is unchanged. N o ascites. Impression: Relative abrupt caliber change of the sigmoid colon again noted, with prominent stool and fluid diste nded large bowel loops proximal to this level. Element of large bowel obstruction cannot be excluded. No definite mass lesion identified. Consider colonic stricture versus small lesion which is difficul t to appreciate on CT imaging. Colonoscopy can be considered as indicated. Small hiatal hernia. Reviewed, dictated and finalized at [facility]. IC CLERK Impression: Relative abrupt caliber change of the sigmoid colon again noted, with prominent stool and fluid distended large bowel loops proximal to this level. Element of large bowel obstruction cannot be excluded. No definite mass lesion identified . Consider colonic stricture versus small lesion which is difficult to apprecia te on CT imaging. Colonoscopy can be considered as indicated. Small hiatal hernia.
--- NOTE | ~2023-06-22 | CT_ITS ---
EXAMINATION: CT abdomen pelvis w con DATE: 06/22/2023 19:25 INDICATION: Abdominal pain, vomiting. Lack acidosis. TECHNIQUE: Computed tomography (CT) of the abdomen and pelvis was performed with 100 CC Omnipaque 350 intravenous contrast. Automated exposure control and iterative reconstruction technique were employe d. Exam dose: 645.28 mGy-cm total exam DLP. COMPARISON: 05/11/2023 CT abdomen pelvis FINDINGS: No infiltrate or consolidation is detected at the lung bases. Heart size is within normal r amber. Mild to moderate sized hiatal hernia with thickening of the wall and apparent thickening of the dista l esophagus. Removal of NG tube since 05/11/2023. Status post cholecystectomy. No bile duct or pancreatic duct dilatation. No hepatic, splenic, pancrea tic or adrenal space-occupying mass lesion. Multiple bilateral renal cysts. No urinary tract calculus or hydroureteronephrosis. Normal caliber of the abdominal aorta. Prominent calcification at the origin the celiac trunk. No int raperitoneal or retroperitoneal or pelvic mass lesion or adenopathy or ascites is noted. There is prostate enlargement and prominent prostate calcifications. There is a fluid-filled reservoir from an inflatable penile prosthetic device. Normal appendix. There is approximately 12 cm long segment of the distal sigmoid colon which is evacu ated with suggestion of circumferential wall thickening. Proximal to this there is a prominent amount of fecal material in the colon. Prominent bilateral hip osteoarthritis. IMPRESSION: Long segment distal sigmoid possible narrowed segment with circumferential wall thickeni ng; consider barium enema or colonoscopy for further evaluation Normal appendix Multiple bilateral renal cysts Status post cholecystectomy Mild to moderate hiatal hernia with wall thickening, thickening of the distal esophageal wall Reviewed, dictated and finalized at Location A. Reviewed, dictated and finalized at location A. PILOT IMPRESSION: Long segment distal sigmoid possible narrowed segment with circumf erential wall thickening; consider barium enema or colonoscopy for further eval uation Normal appendix Multiple bilateral renal cysts Status post cholecystectomy Mild to moderate hiatal hernia with wall thickening, thickening of the distal e sophageal wall
--- NOTE | ~2023-06-22 | XR_ITS ---
XR chest 1V portable DATE: 06/22/2023 17:23 INDICATION: Syncope TECHNIQUE: Portable upright AP chest on 06/18/2023 at 1721 hours COMPARISON: 05/10/2023 portable AP chest at 2236 hours FINDINGS: Normal heart size. Aortic calcification and unfolding. No hilar or mediastinal enlargement. No pulmonary infiltrate or consolidation, pleural effusion or pulmonary vascular congestion or pneumo thorax. Degenerative changes at the acromioclavicular and glenohumeral joints. IMPRESSION: No active cardiac pulmonary disease Aortic atherosclerosis Reviewed, dictated and finalized at location A. D JET CUTTER OPERATOR
--- NOTE | ~2023-06-22 | XR_ITS ---
Supine and upright views of the abdomen Clinical history: Abdominal pain, distention COMPARISON: 06/12/2021 Findings: There is prominent air distention of what appears to be predominantly transverse colon. Pro bable distended urinary bladder. No definite bowel obstruction seen. No definite free air seen. No ab normal mass lesion or calcification is seen. Osseous structures are intact. Impression: Marked air distention of what appears to be predominantly transverse colon, nonspecific. Probable distended urinary bladder. Reviewed, dictated and finalized at [facility]. ANY DOCTOR Impression: Marked air distention of what appears to be predominantly transverse colon, non specific. Probable distended urinary bladder.
[2023-06-22] MEDS: SODIUM CHLORIDE 0.9% IV 1,000 ML 1000 ML (16:49)
[2023-06-22] MEDS: ONDANSETRON INJ 4 MG/2 ML VIAL (17:03)
--- NOTE | 2023-06-22 17:03 | PC.NURSE ---
verbal order read back for 1L IV NS on gravity and 4 mg zofran for continuous nausea.
--- NOTE | 2023-06-22 17:11 | ECG_ITS ---
Measurements Intervals [place] Rate: 76 P: 62 IN: 191 QRS: -69 QRSD: 104 T: 16 QT: 420 QTc: 472 Interpretive Statements SINUS RHYTHM LEFT ANTERIOR FASCICULAR BLOCK ANTEROSEPTAL INFARCT, AGE INDETERMINATE BASELINE ARTIFACT- I, II, III, AVR, AVL, AVF, V1-V6 ABNORMAL ECG COMPARED TO ECG 04/14/2022 13:37:25 NO SIGNIFICANT CHANGES Electronically Signed On 06-22-2023 19:52:36 [employer] by Aric Lee D.O.
--- NOTE | 2023-06-22 17:30 | ED.RECABL ---
HPI - Recheck/Abnormal Lab/Rx General Chief Complaint: Recheck/Abnormal Lab/Rx Stated Complaint: syncopal episode - low bp Time Seen by Provider: 06/22/23 17:12 Source: patient and EMS Mode of arrival: EMS Limitations: no limitations History of Present Illness HPI narrative: This is a 68 year old male that presents to the ER for a syncopal episode. Reports he remembers waking up in the ambulance. Patient is now reporting severe epigastric pain, nausea and vomiting. Denies fever, chest pain, palpitations, shortness of breath, or diarrhea. Related Data Home Medications Medication Instructions Recorded Confirmed atorvastatin 80 mg tablet 80 mg PO DAILY 06/12/21 05/11/23 ergocalciferol (vitamin D2) 50,000 50,000 unit PO WEEKLY 06/12/21 05/11/23 unit tablet flash glucose sensor (FreeStyle 06/12/21 05/11/23 Jose J 14 Day Sensor kit) folic acid 1 mg tablet 1 mg PO DAILY 06/12/21 05/11/23 apixaban 2.5 mg tablet (Eliquis) 2.5 mg PO BID 05/11/23 05/11/23 baclofen 10 mg tablet 5 mg PO TID PRN muscle spasms 05/11/23 05/11/23 chlorpromazine 25 mg tablet 25 mg PO TID PRN nausea/vomiting 05/11/23 05/11/23 docusate sodium 100 mg capsule 100 mg PO DAILY PRN Constipation 05/11/23 05/11/23 hydralazine 50 mg tablet 50 mg PO BID 05/11/23 05/11/23 insulin glargine 100 unit/mL 15 units subcut HS 05/11/23 05/11/23 subcutaneous solution (Lantus U-100 Insulin) insulin lispro 100 unit/mL 10 unit subcut TIDWM 05/11/23 05/11/23 subcutaneous cartridge metoprolol succinate 25 mg 25 mg PO HS 05/11/23 05/11/23 tablet,extended release 24 hr potassium chloride 20 mEq 40 meq PO BID 05/11/23 05/11/23 tablet,extended release (K-Tab) tamsulosin 0.4 mg capsule 0.4 mg PO HS 05/11/23 05/11/23 tramadol 50 mg tablet 50 mg PO Q6H PRN Pain 05/11/23 05/11/23 Allergies Allergy/AdvReac Type Severity Reaction Status Date / Time metformin Allergy Diarrhea Verified 06/22/23 16:47 pregabalin [From Lyrica] Allergy Swelling Verified 06/22/23 16:47 venlafaxine [From Effexor] AdvReac Confusion Verified 06/22/23 16:47 Review of Systems Review of Systems: CONSTITUTIONAL: Denies fever CARDIOVASCULAR: Denies chest pain, palpitations, or edema. RESPIRATORY: Denies dyspnea. GASTROINTESTINAL: Reports abdominal pain, nausea, vomiting. Denies diarrhea. GENITOURINARY: Denies dysuria All systems reviewed & are unremarkable except as noted in HPI and below PMFSH Past Medical History Medical History (Updated 06/22/23 @ 23:26 by Uzam Corcoran PA-C) Arthritis Benign prostatic hyperplasia Chronic anticoagulation Chronic kidney disease With baseline creatinine between 1.5 and 1.7 Cirrhosis Depression Diabetic peripheral neuropathy Dyslipidemia Erosive esophagitis Gastroesophageal reflux disease Hepatitis C Hyperlipidemia Insulin dependent type 2 diabetes mellitus uncontrolled by history Tobacco abuse disorder UGIB (upper gastrointestinal bleed) Surgical History Surgical History (Updated 06/22/23 @ 22:15 by Litzy Schafer DO) History of esophagogastroduodenoscopy (EGD) Social History Social History (Updated 06/22/23 @ 22:19 by Litzy Schafer DO) Social History: Surrogate decision maker: Mahnaz Christopher, spouse. Code status: Full code. Smoking packs per day: 0.25 Smoking cigarettes per day: 5.0 Years smoked: 30 Smoking pack-years: 7.50 Smoking status: Current every day smoker Tobacco type: cigarettes Second hand tobacco smoke exposure: Yes Additional smoking assessment comments: pt's spouse says pt smokes between 10 cigarettes and a pack daily Alcohol intake: never Substance use: never Substance use type: does not use Lack of Transportation: No Lack of Food: Never True Current Housing: I Have Housing Concerned About Future Housing: No Difficulty Paying Gas/Electric Bills: No Difficulty Paying for Meds: No Currently Unemployed: No Education: Decline to Answer Difficulty w/ Childcar
[2023-06-22] MEDS: PANTOPRAZOLE SODIUM IV 40 MG VIAL IV PUSH (17:45)
[2023-06-22] MEDS: MORPHINE SULFATE (*CRX) 4 MG/ML INJ IV PUSH (17:45)
[2023-06-22 17:47] LABS: Basophils Absolute Auto 0.1 K/mm3 (0.0-0.1); Basophils Percent Auto 0.4 % (0.2-1.2); Eosinophils Absolute Auto 0.1 K/mm3 (0-0.3); Eosinophils Percent Auto 0.5 % (0-4.4); Hematocrit 37.6 % (42.0-52.0); Hemoglobin 12.3 g/dL (14.0-18.0); Immature Granulocyte Absolute 0.06 K/mm3 (0.00-0.031); Immature Granulocyte Percent A 0.3 % (0-0.5); Lymphocytes Absolute Auto 2.24 K/mm3 (0.9-3.2); Lymphocytes Percent Auto 12.2 % (18.3-44.2); Mean Corpuscular HGB Conc 32.7 g/dl (32-36); Mean Corpuscular Hemoglobin 28.9 pg (26-34); Mean Corpuscular Volume 88.5 fl (80-100); Mean Platelet Volume 9.7 fl (7.4-10.4); Monocytes Percent Auto 5.5 % (2.6-8.5); Neutrophils Absolute Auto 14.9 K/mm3 (1.3-6.7); Neutrophils Percent Auto 81.1 % (45.5-73.1); Platelet Count Result 306 k/mm3 (150-375); Red Blood Count 4.25 M/mm3 (4.6-6.20); Red Cell Distribution Width 12.3 % (11.5-14.5); White Blood Count 18.4 K/mm3 (4.5-10.0)
--- NOTE | 2023-06-22 17:49 | PC.NURSE ---
unable to get an accurate ekg due to pt being restless in pain and unable to lie flat. MD requested ekg after morphine has time to relax the pt.
[2023-06-22 17:57] LABS: Prothrombin Time 13.7 Seconds (11.1-14.7)
[2023-06-22 18:00] LABS: Alanine Aminotransferase 24 U/L (6-50); Alkaline Phosphatase 81 U/L (38-126); Anion Gap 12 mmol/L (8-16); Aspartate Amino Transferase 39 U/L (17-59); Bilirubin,Total 1.1 mg/dL (0.2-1.3); Blood Urea Nitrogen 33 mg/dL (9-20); Calcium 8.7 mg/dL (8.4-10.2); Carbon Dioxide 38 mmol/L (22-30); Chloride 85 mmol/L (98-107); Estimated CRCL calculation 36 ml/min; Estimated Glomerular Filt Rate 40; Glucose 326 mg/dL (65-110); Potassium 3.1 mmol/L (3.4-5.0); Sodium 135 mmol/L (137-145)
[2023-06-22 18:08] LABS: CRP < 0.5 mg/dL (<1.0)
[2023-06-22 18:11] LABS: Lactic Acid Reflex 4.8 mmol/L (0.7-2.0); Troponin I 0.031 ng/mL (0.000-0.034)
[2023-06-22 18:41] LABS: Magnesium 2.2 mg/dL (1.6-2.3)
[2023-06-22] MEDS: HYDROmorphone HCL INJ (*CRX) 1 MG/ML SYR 0.5 MG IV PUSH (19:12)
[2023-06-22] MEDS: POTASSIUM CHLORIDE INJ 40 MEQ in SODIUM CHLORIDE 0.9% IV 500 ML 130 MEQ IVPB (19:41)
[2023-06-22] MEDS: SODIUM CHLORIDE 0.9% IV 500 ML 999 ML IV CONT (19:42)
--- NOTE | 2023-06-22 19:46 | PC.NURSE ---
unable to get 2 full sets of blood cultures. 1 set was obtained by photographic technician after 6 attempts.
[2023-06-22 19:49] LABS: Appearance Urine Cloudy (Clear); Bacteria Urine None Seen /hpf; Bilirubin Urine Negative (Negative); Blood Urine Negative (Negative); Color Urine Yellow (Yellow); Glucose Urine UA 2+ mg/dL (Negative); Ketones Urine Negative (Negative); Leukocyte Esterase Ur Trace LEU/UL (Negative); Nitrate Urine Negative (Negative); Non Pathogenic Casts 0-2; Protein Urine 2+ mg/dL (Negative); RBC Urine 0-2 /hpf (0-2); Specific Grav Ur 1.013 (1.001-1.035); Squamous Epithelial Cell Urine None seen /hpf (Few); Urobilinogen Urine 0.2 mg/dL (<2.0); WBC Urine 0-5 /hpf; pH Urine 7.5 (5.0-9.0)
[2023-06-22 19:59] LABS: Add Urine Microscopic? YES
[2023-06-22] MEDS: METOCLOPRAMIDE HCL INJ 10 MG/2 ML VIAL IV PUSH (20:40)
[2023-06-22] MEDS: diphenhydrAMINE HCl INJ 50 MG/ML VIAL 25 MG IV PUSH (20:40)
[2023-06-22 20:45] LABS: Reflex Lactic Acid Yes or No Add Lactic
[2023-06-22] MEDS: PIPERACILLIN/TAZ 2.25G/NS 50ML 2.25 GM/50 ML BAG IVPB (21:18)
[2023-06-22 21:41] LABS: pH Gastric Fluid 3 (1-8)
[2023-06-22 21:42] LABS: Gastric Negative Control Negative; Gastric Positive Control Positive; Occult Blood Gastric Fluid Negative
[2023-06-22 21:59] LABS: Lactic Acid 1.4 mmol/L (0.7-2.0)
--- NOTE | 2023-06-22 22:06 | PM.IMHP ---
H&P: HPI History of Present Illness Date/Time: 06/22/23 22:06 Chief Complaint: found unresponsive on the toilet Narrative: 66-year-old male with past medical history of insulin-dependent diabetes, hypertension, cirrhosis, hepatitis-C, GERD, erosive esophagitis chronic kidney disease stage III among other comorbidities who presented to the ER after being found unresponsive on the toilet. Patient was reportedly found with low blood pressure by EMS was started on fluid pulse in the field. Patient remembers waking up in the ambulance. on arrival to the ER patient's blood pressures range between 57 systolic and 79 systolic. He received 1.5 L of fluid bolus in the ER in addition to the 1 L provided in the field for total of the 30 mL/kilos bolus. His blood pressures normalized. Were found to be hypokalemic potassium of 3 pointand received 40 mEq potassium chloride IV x1. His BUN and creatinine were found via the above baseline. His glucoses were significantly elevated at 326 but no anion gap. His initial lactic acid was elevated but on repeat obtained by phlebotomy lactic acid had normalized. The patient was alert oriented x3 in the ER but received multiple doses of narcotics and antiemetics. On arrival to the medical floor the patient was somnolent and difficult to arouse. The patient would open his eyes and briefly answer questions but responses were not always appropriate and where at times repetitive. He would intermittently follow commands. He was noted to have some snoring respirations. Otherwise he is not in a distress. After examined at his abdomen the patient did grimace with light to moderate palpation of his abdomen and after abdominal exam is sat up in started dry heaving. The patient was still not awake enough to give appropriate responses. As a result the patient's HPI and past medical history was obtained from review of past medical records and ER records as well as provider report. Attempt was made to contact the patient's family members. Review of Systems Review of Systems: ROS unobtainable: Yes unobtainable due to mental status PMFSH Past Medical History Medical History Arthritis Benign prostatic hyperplasia Chronic anticoagulation Chronic kidney disease With baseline creatinine between 1.5 and 1.7 Cirrhosis Depression Diabetic peripheral neuropathy Dyslipidemia Erosive esophagitis Gastroesophageal reflux disease Hepatitis C Hyperlipidemia Insulin dependent type 2 diabetes mellitus uncontrolled by history Tobacco abuse disorder UGIB (upper gastrointestinal bleed) Surgical History Surgical History (Updated 06/23/23 @ 00:03 by Litzy Schafer DO) History of esophagogastroduodenoscopy (EGD) Hx laparoscopic cholecystectomy Family History Family History (Updated 06/23/23 @ 00:00 by Litzy Schafer DO) Other Unknown family medical history Social History Social History (Updated 06/22/23 @ 22:19 by Litzy Schafer DO) Social History: Surrogate decision maker: Mahnaz Christopher, spouse. Code status: Full code. Smoking packs per day: 0.25 Smoking cigarettes per day: 5.0 Years smoked: 30 Smoking pack-years: 7.50 Smoking status: Current every day smoker Tobacco type: cigarettes Second hand tobacco smoke exposure: Yes Additional smoking assessment comments: pt's spouse says pt smokes between 10 cigarettes and a pack daily Alcohol intake: never Substance use: never Substance use type: does not use Lack of Transportation: No Lack of Food: Never True Current Housing: I Have Housing Concerned About Future Housing: No Difficulty Paying Gas/Electric Bills: No Difficulty Paying for Meds: No Currently Unemployed: No Education: Decline to Answer Difficulty w/ Childcare or Family Care: No Additional living arrangements comments: The patient lives with his in [place]. Additional occupatio
[2023-06-22] MEDS: ONDANSETRON INJ 4 MG/2 ML VIAL IV PUSH (23:33)
--- NOTE | 2023-06-22 23:54 | ADMGEN ---
This patient, Jonathon Thurston Candi, was admitted to [facility] Surg Room 327-01. Patient/family oriented to hospital policies and general routines including ID bracelet, bed and alarms, visiting hours, pain management, procedures, bathroom and other care routines, personal items, smoking policy, room service/diet, and visiting hours. Information on how to activate the Rapid Response Team has been discussed. Patient/Family are encouraged to report perceived risks to care and to ask questions if they do not understand what they are told or what they should do.
[2023-06-23] VITALS (11 sets, daily range): BP systolic 116–148; BP diastolic 69–92; PULSE 68–93; RESP 14–20; TEMP 36.4–36.6; O2SAT 97–100
[2023-06-23] MEDS: INSULIN ASPART (*BKC) 100 UNITS/ML SUB-Q ×2 (00:53→05:30)
[2023-06-23] MEDS: INSULIN GLARGINE (*BKC) 100 UNITS/ML 20 UNITS SUB-Q ×2 (00:53→20:24)
[2023-06-23 00:57] LABS: Glucose Point of Care 285 mg/dl (65-105)
[2023-06-23] MEDS: SODIUM CHLORIDE 0.9% IV 1,000 ML 125 ML IV CONT ×2 (00:57→08:13)
[2023-06-23] MEDS: PIPERACILLIN/TAZ 2.25G/NS 50ML 2.25 GM/50 ML BAG IVPB ×4 (02:41→20:25)
[2023-06-23] MEDS: SUCRALFATE SUSP 100 MG/ML 10 ML UDC 1000 MG PO ×4 (05:35→20:25)
[2023-06-23] MEDS: MORPHINE SULFATE (*CRX) 2 MG/ML INJ IV PUSH ×2 (05:43→08:27)
[2023-06-23 06:41] LABS: Glucose Point of Care 220 mg/dl (65-105)
[2023-06-23 06:48] LABS: Basophils Absolute Auto 0.1 K/mm3 (0.0-0.1); Basophils Percent Auto 0.3 % (0.2-1.2); Eosinophils Absolute Auto 0.1 K/mm3 (0-0.3); Eosinophils Percent Auto 0.5 % (0-4.4); Hematocrit 34.1 % (42.0-52.0); Immature Granulocyte Absolute 0.09 K/mm3 (0.00-0.031); Immature Granulocyte Percent A 0.5 % (0-0.5); Lymphocytes Absolute Auto 1.81 K/mm3 (0.9-3.2); Lymphocytes Percent Auto 9.2 % (18.3-44.2); Mean Corpuscular HGB Conc 32.3 g/dl (32-36); Mean Platelet Volume 9.4 fl (7.4-10.4); Monocytes Percent Auto 5.1 % (2.6-8.5); Neutrophils Absolute Auto 16.6 K/mm3 (1.3-6.7); Neutrophils Percent Auto 84.4 % (45.5-73.1); Platelet Count Result 269 k/mm3 (150-375); Red Blood Count 3.79 M/mm3 (4.6-6.20); Red Cell Distribution Width 12.3 % (11.5-14.5); White Blood Count 19.7 K/mm3 (4.5-10.0)
[2023-06-23 06:58] LABS: Alanine Aminotransferase 20 U/L (6-50); Albumin Level 3.6 g/dL (3.5-5.1); Alkaline Phosphatase 69 U/L (38-126); Aspartate Amino Transferase 20 U/L (17-59); Bilirubin,Total 1.4 mg/dL (0.2-1.3); Blood Urea Nitrogen 28 mg/dL (9-20); Calcium 8.6 mg/dL (8.4-10.2); Carbon Dioxide > 40 mmol/L (22-30); Chloride 93 mmol/L (98-107); Estimated CRCL calculation 34 ml/min; Estimated Glomerular Filt Rate 38; Glucose 188 mg/dL (65-110); Potassium 3.7 mmol/L (3.4-5.0); Sodium 141 mmol/L (137-145)
[2023-06-23] MEDS: PANTOPRAZOLE SODIUM IV 40 MG VIAL IV PUSH ×2 (08:15→20:24)
[2023-06-23] MEDS: POTASSIUM CHLORIDE 20 MEQ ER TABLET 40 MEQ PO ×2 (08:16→17:42)
[2023-06-23] MEDS: ENOXAPARIN 40 MG/0.4 ML SYRINGE SUB-Q (08:16)
--- NOTE | 2023-06-23 09:45 | PM.IMPN ---
Progress Note: A&P Assessment and Plan (1) Sepsis: Qualifiers: Acute renal failure type: unspecified Sepsis acute organ dysfunction status: with acute organ dysfunction Sepsis type: sepsis due to unspecified organism Severe sepsis acute organ dysfunction type: acute renal failure Severe sepsis shock status: without septic shock Qualified Code(s): A41.9 - Sepsis, unspecified organism; R65.20 - Severe sepsis without septic shock; N17.9 - Acute kidney failure, unspecified Code(s): A41.9 - Sepsis, unspecified organism Status: Acute (2) Colitis: Code(s): K52.9 - Noninfective gastroenteritis and colitis, unspecified Status: Acute (3) Diabetes mellitus with hyperglycemia, with long-term current use of insulin: Qualifiers: Diabetes mellitus type: type 2 Qualified Code(s): E11.65 - Type 2 diabetes mellitus with hyperglycemia; Z79.4 - dish network installer (current) use of insulin Code(s): E11.65 - Type 2 diabetes mellitus with hyperglycemia; Z79.4 - [facility] (current) use of insulin Status: Acute (4) Acute hypokalemia: Code(s): E87.6 - Hypokalemia Status: Acute (5) Acute kidney injury superimposed on chronic kidney disease: Code(s): N17.9 - Acute kidney failure, unspecified; N18.9 - Chronic kidney disease, unspecified Status: Acute (6) Acute lactic acidosis: Code(s): E87.21 - Acute metabolic acidosis Status: Acute (7) Transient hypotension: Code(s): I95.9 - Hypotension, unspecified Status: Acute (8) Dysarthria: Code(s): R47.1 - Dysarthria and anarthria Status: Acute Plan Dysarthria Patient was noticed to have intermittent dysarthria about 12: 30 afternoon, Patient had no focal weakness, full stress of all extremities Given history of CVA and noncompliant with Eliquis, patient had high risk of stroke, I consulted Dr. Prasad and neurologist, Dr. Benson at [facility], they recommended to order stat CTA Brain and carotid even though CKD. Dr Benson considered CTA should be ordered to rule out large vessel occlusions and low risk for kidney function deterioration when GFR above 35 Be considered patient most likely has encephalopathy due to cirrhosis, sepsis, because dysarthria without focal weakness has less than 2% chance of ischemic stroke CT of brain and carotid artery review no large vessel occlusion, no significant carotid and vertebral artery stenosis Per dr Benson, patient does not need to be transferred to them if no large vessel occlusion Continue telemetry monitoring and neuro check ordered stat CT of the head that showed no acute intracranial issues. Per patient's , patient stopped Eliquis about a month ago, in the middle of April. Patient was alert, able to follow commands, moving eyes guided by my finger move Severe sepsis with hypotension, possible due to acute colitis Patient has leukocytosis, tachycardia tachypnea, lactic acidosis, hypotension Likely resulting from acute infective colitis colitis of the sigmoid colon given CT findings Patient has abdominal pain. on empiric antibiotic therapy with Zosyn. Blood cultures and stool cultures are pending. Received fluid resuscitation monitor I&O's closely. repeat CBC and electrolyte panel with a.m. labs. still having intractable nausea and vomiting despite Zofran. add Phenergan for breakthrough nausea and vomiting. monitor on telemetry given these multiple antiemetics but patient QT intervals currently normal. Acute on chronic renal failure, hypokalemia Worsening BUN creatinine above baseline, likely secondary to sepsis dehydration, hypokalemia, likely secondary to poor intake Follow-up BMP, correct electrolyte abnormality accordingly Continue fluid resuscitation Consult performance improvement coordinator Syncope Patient passed cell, likely secondary to profound hypotension and sepsis Neuro check Telemetry monitoring Leukocytosis Patient has b
[2023-06-23 11:48] LABS: Glucose Point of Care 76 mg/dl (65-105)
[2023-06-23 12:09] LABS: Glucose Point of Care 74 mg/dl (65-105)
[2023-06-23] MEDS: DEXTROSE 50% 25 GM/50 ML SYRINGE IV PUSH (12:19)
[2023-06-23 12:44] LABS: Glucose Point of Care 148 mg/dl (65-105)
[2023-06-23] MEDS: MORPHINE SULFATE (*CRX) 4 MG/ML INJ IV PUSH ×2 (14:01→20:30)
--- NOTE | 2023-06-23 14:44 | PC.NURSE ---
Dr. Prasad called to clarify the request for consultation from Dr. Mendez. Dr. Prasad stated that neurology does not do emergent consults therefore if pt is emergent he will need to be transferred to a higher care facility like [facility] or [facility]. She further stated that she would advise that pt should get a CTA with contast of the head, neck, and carotids; however, if pt's current kidney function makes contrast contraindicated then nephrology will need to be consulted and sign off on the use of contrast. Additionally, she stated that a CTA without contrast is not advised as it will not proffer the diagnostics needed. Dr. Mendez was informed of all of this and stated that he would contact the transfer center. Charge nurse made aware of the aforementioned.
--- NOTE | 2023-06-23 14:46 | WPDNEUROPN ---
Subjective Date/time seen: 06/23/23 14:46 Interval history: PLAN OF CARE -- disregard progress note Received call from patient's hospitalist regarding acute onset aphasia. Patient's last known well is around noon today. Patient reportedly has not been able to get more than a few words out since then. CT head was done which showed no acute changes. Per hospitalist, patient has not other focal deficits. Discussed that he should have CTA brain/carotid to rule out large vessel occlusion. Hospitalist has concerns regarding renal function and contrast. GFR is 38. I recommended that he discuss with radiology/nephrology and if they would be okay with him receiving contrast. I also requested that case be discussed with stroke service at [facility] as patient is technically still within window of tPa/TNK, and if he is a candidate, he would have to be transferred to a higher level of care. I see that patient has Eliquis 2.5mg BID listed in his medication list. He has not been getting it since admission. However, he was admitted yesterday, so there is a chance he has received it in the past day. If he has taken NOAC in last 48 hrs he will likely not be a candidate for thrombolytic. If patient is not a candidate, will see as a consult tomorrow AM. Discussed plan with patients RN and hospitalist. Objective Data Vital Signs Vital Signs: Vital Signs - 24 hr 06/22/23 16:28 06/22/23 16:28 06/22/23 16:40 Temperature 36.6 C Pulse Rate 76 Respiratory Rate 12 Blood Pressure 79/50 L 57/40 L Pulse Oximetry 100 100 Oxygen Delivery Room Air Room Air 06/22/23 16:53 06/22/23 16:35 06/22/23 16:36 Temperature Pulse Rate 81 71 73 Respiratory Rate 23 H 17 21 H Blood Pressure 115/68 79/50 L Pulse Oximetry 100 99 Oxygen Delivery 06/22/23 16:41 06/22/23 16:45 06/22/23 16:49 Temperature Pulse Rate 68 73 69 Respiratory Rate 20 29 H 24 H Blood Pressure 57/40 L Pulse Oximetry 100 Oxygen Delivery 06/22/23 16:50 06/22/23 17:00 06/22/23 17:01 Temperature Pulse Rate 76 77 75 Respiratory Rate 15 22 H 21 H Blood Pressure 142/93 H Pulse Oximetry 100 100 Oxygen Delivery 06/22/23 17:11 06/22/23 17:15 06/22/23 17:30 Temperature Pulse Rate 79 79 78 Respiratory Rate 26 H 19 21 H Blood Pressure Pulse Oximetry 100 Oxygen Delivery 06/22/23 17:52 06/22/23 17:57 06/22/23 18:00 Temperature Pulse Rate 77 75 76 Respiratory Rate 18 17 18 Blood Pressure 110/96 H Pulse Oximetry 98 100 100 Oxygen Delivery 06/22/23 18:01 06/22/23 18:26 06/22/23 18:41 Temperature Pulse Rate 76 78 77 Respiratory Rate 18 19 16 Blood Pressure 135/71 133/97 H Pulse Oximetry 100 95 100 Oxygen Delivery 06/22/23 18:45 06/22/23 19:03 06/22/23 19:29 Temperature Pulse Rate 78 79 84 Respiratory Rate 21 H 21 H 19 Blood Pressure Pulse Oximetry 98 Oxygen Delivery 06/22/23 19:30 06/22/23 19:54 06/22/23 20:02 Temperature Pulse Rate 83 81 81 Respiratory Rate 21 H 17 16 Blood Pressure Pulse Oximetry 98 98 99 Oxygen Delivery 06/22/23 20:30 06/22/23 20:31 06/22/23 20:32 Temperature Pulse Rate 85 83 Respiratory Rate 18 20 Blood Pressure 151/66 H 151/66 H Pulse Oximetry 96 100 Oxygen Delivery 06/22/23 20:41 06/22/23 20:45 06/22/23 21:00 Temperature Pulse Rate 83 91 90 Respiratory Rate 19 21 H 31 H Blood Pressure 138/61 Pulse Oximetry 100 100 Oxygen Delivery 06/22/23 21:16 06/22/23 21:32 06/22/23 21:45 Temperature Pulse Rate 86 86 92 Respiratory Rate 17 21 H 20 Blood Pressure Pulse Oximetry Oxygen Delivery 06/22/23 22:16 06/22/23 22:08 06/23/23 00:00 Temperature Pulse Rate 84 78 Respiratory Rate 12 Blood Pressure 141/71 H Pulse Oximetry 99 Oxygen Delivery 06/23/23 00:36 06/23/23 01:19 06/23/23 04:00 Temperature 36.4 C L Pulse Rate 76 76 68 Respiratory Rate 14 14 Blood Pressure 116/
[2023-06-23 17:59] LABS: Glucose Point of Care 145 mg/dl (65-105)
[2023-06-23] MEDS: TAMSULOSIN HCL 0.4 MG CAPSULE PO (20:25)
[2023-06-24] VITALS (9 sets, daily range): BP systolic 113–146; BP diastolic 69–83; PULSE 72–101; RESP 18–20; TEMP 36.1–36.4; O2SAT 98–100
[2023-06-24 00:20] LABS: Glucose Point of Care 105 mg/dl (65-105)
[2023-06-24] MEDS: SODIUM CHLORIDE 0.9% IV 1,000 ML 125 ML IV CONT ×2 (00:22→11:35)
[2023-06-24] MEDS: PIPERACILLIN/TAZ 2.25G/NS 50ML 2.25 GM/50 ML BAG IVPB ×4 (02:02→21:48)
[2023-06-24] MEDS: MORPHINE SULFATE (*CRX) 4 MG/ML INJ IV PUSH ×3 (02:03→16:31)
[2023-06-24] MEDS: SUCRALFATE SUSP 100 MG/ML 10 ML UDC 1000 MG PO ×4 (05:50→21:53)
[2023-06-24 05:58] LABS: Glucose Point of Care 109 mg/dl (65-105)
[2023-06-24 08:14] LABS: Glucose Point of Care 98 mg/dl (65-105)
[2023-06-24 08:19] LABS: Basophils Absolute Auto 0.1 K/mm3 (0.0-0.1); Basophils Percent Auto 0.6 % (0.2-1.2); Eosinophils Absolute Auto 0.2 K/mm3 (0-0.3); Eosinophils Percent Auto 2.1 % (0-4.4); Hematocrit 34.3 % (42.0-52.0); Hemoglobin 10.7 g/dL (14.0-18.0); Immature Granulocyte Absolute 0.03 K/mm3 (0.00-0.031); Immature Granulocyte Percent A 0.3 % (0-0.5); Lymphocytes Absolute Auto 2.12 K/mm3 (0.9-3.2); Lymphocytes Percent Auto 20.2 % (18.3-44.2); Mean Corpuscular HGB Conc 31.2 g/dl (32-36); Mean Corpuscular Hemoglobin 28.5 pg (26-34); Mean Corpuscular Volume 91.5 fl (80-100); Mean Platelet Volume 8.9 fl (7.4-10.4); Monocytes Absolute Auto 0.7 K/mm3 (0.1-0.6); Monocytes Percent Auto 6.5 % (2.6-8.5); Neutrophils Absolute Auto 7.4 K/mm3 (1.3-6.7); Neutrophils Percent Auto 70.3 % (45.5-73.1); Platelet Count Result 241 k/mm3 (150-375); Red Blood Count 3.75 M/mm3 (4.6-6.20); Red Cell Distribution Width 12.6 % (11.5-14.5); White Blood Count 10.5 K/mm3 (4.5-10.0)
[2023-06-24] MEDS: POTASSIUM CHLORIDE 20 MEQ ER TABLET 40 MEQ PO ×2 (08:23→16:31)
[2023-06-24] MEDS: PANTOPRAZOLE SODIUM IV 40 MG VIAL IV PUSH ×2 (08:23→21:53)
[2023-06-24] MEDS: ENOXAPARIN 40 MG/0.4 ML SYRINGE SUB-Q (08:23)
[2023-06-24 08:29] LABS: Albumin Level 3.6 g/dL (3.5-5.1); Anion Gap 7 mmol/L (8-16); Blood Urea Nitrogen 16 mg/dL (9-20); Calcium 8.1 mg/dL (8.4-10.2); Carbon Dioxide 31 mmol/L (22-30); Chloride 100 mmol/L (98-107); Estimated CRCL calculation 38 ml/min; Estimated Glomerular Filt Rate 43; Glucose 102 mg/dL (65-110); Magnesium 1.7 mg/dL (1.6-2.3); Phosphorus 1.5 mg/dL (2.5-4.5); Potassium 3.6 mmol/L (3.4-5.0); Sodium 138 mmol/L (137-145)
--- NOTE | 2023-06-24 09:22 | PM.IMPN ---
Progress Note: A&P Assessment and Plan (1) Sepsis: Qualifiers: Acute renal failure type: unspecified Sepsis acute organ dysfunction status: with acute organ dysfunction Sepsis type: sepsis due to unspecified organism Severe sepsis acute organ dysfunction type: acute renal failure Severe sepsis shock status: without septic shock Qualified Code(s): A41.9 - Sepsis, unspecified organism; R65.20 - Severe sepsis without septic shock; N17.9 - Acute kidney failure, unspecified Code(s): A41.9 - Sepsis, unspecified organism Status: Acute (2) Colitis: Code(s): K52.9 - Noninfective gastroenteritis and colitis, unspecified Status: Acute (3) Diabetes mellitus with hyperglycemia, with long-term current use of insulin: Qualifiers: Diabetes mellitus type: type 2 Qualified Code(s): E11.65 - Type 2 diabetes mellitus with hyperglycemia; Z79.4 - computer terminal operator (current) use of insulin Code(s): E11.65 - Type 2 diabetes mellitus with hyperglycemia; Z79.4 - senior care (current) use of insulin Status: Acute (4) Acute hypokalemia: Code(s): E87.6 - Hypokalemia Status: Acute (5) Acute kidney injury superimposed on chronic kidney disease: Code(s): N17.9 - Acute kidney failure, unspecified; N18.9 - Chronic kidney disease, unspecified Status: Acute (6) Acute lactic acidosis: Code(s): E87.21 - Acute metabolic acidosis Status: Acute (7) Transient hypotension: Code(s): I95.9 - Hypotension, unspecified Status: Acute (8) Dysarthria: Code(s): R47.1 - Dysarthria and anarthria Status: Acute Plan Dysarthria 06/23 Patient was noticed to have intermittent dysarthria about 12: 30 afternoon, Patient had no focal weakness, full strength of all extremities. Patient was alert, able to follow commands, moving eyes guided by my finger move ordered stat CT of the head that showed no acute intracranial issues. Given history of CVA and noncompliant with Eliquis, patient had high risk of stroke, I consulted Dr. Prasad and neurologist, Dr. Benson at [facility], they recommended to order stat CTA Brain and carotid even though CKD. Dr Benson considered CTA should be ordered to rule out large vessel occlusions and low risk for kidney function deterioration when GFR above 35 Be considered patient most likely has encephalopathy due to cirrhosis, sepsis, because dysarthria without focal weakness has less than 2% chance of ischemic stroke CT of brain and carotid artery review no large vessel occlusion, no significant carotid and vertebral artery stenosis Per dr Benson, patient does not need to be transferred to them if no large vessel occlusion Continue telemetry monitoring and neuro check 06/24 Today patient is talking is at baseline, although patient has slurred speech, per patient's , this is baseline. Patient has no focal weakness, full strands of both arms and legs Severe sepsis with hypotension, possible due to acute colitis Patient has leukocytosis, tachycardia tachypnea, lactic acidosis, hypotension Likely resulting from acute infective colitis colitis of the sigmoid colon given CT findings Patient has abdominal pain. on empiric antibiotic therapy with Zosyn. Blood cultures and stool cultures are pending. Received fluid resuscitation monitor I&O's closely. repeat CBC and electrolyte panel with a.m. labs. Nausea vomiting is controlled Advance to diabetic diet as tolerable Acute on chronic renal failure, hypokalemia Worsening BUN creatinine above baseline, likely secondary to sepsis dehydration, hypokalemia, likely secondary to poor intake Follow-up BMP, correct electrolyte abnormality accordingly Continue fluid resuscitation Consult commercial designer Creatinine is trending down slightly Syncope Patient passed cell, likely secondary to profound hypotension and sepsis Neuro check Telemetry monitoring Leukocytosis Patient has been palmer
--- NOTE | 2023-06-24 10:12 | PM.IMPN ---
Progress Note: A&P Assessment and Plan (1) Sepsis: Qualifiers: Sepsis type: sepsis due to unspecified organism Sepsis acute organ dysfunction status: with acute organ dysfunction Severe sepsis acute organ dysfunction type: acute renal failure Acute renal failure type: unspecified Severe sepsis shock status: without septic shock Qualified Code(s): A41.9 - Sepsis, unspecified organism; R65.20 - Severe sepsis without septic shock; N17.9 - Acute kidney failure, unspecified Code(s): A41.9 - Sepsis, unspecified organism Status: Acute (2) Colitis: Code(s): K52.9 - Noninfective gastroenteritis and colitis, unspecified Status: Acute (3) Diabetes mellitus with hyperglycemia, with long-term current use of insulin: Qualifiers: Diabetes mellitus type: type 2 Qualified Code(s): E11.65 - Type 2 diabetes mellitus with hyperglycemia; Z79.4 - termite treater helper (current) use of insulin Code(s): E11.65 - Type 2 diabetes mellitus with hyperglycemia; Z79.4 - [facility] (current) use of insulin Status: Acute (4) Acute hypokalemia: Code(s): E87.6 - Hypokalemia Status: Acute (5) Acute kidney injury superimposed on chronic kidney disease: Code(s): N17.9 - Acute kidney failure, unspecified; N18.9 - Chronic kidney disease, unspecified Status: Acute (6) Acute lactic acidosis: Code(s): E87.21 - Acute metabolic acidosis Status: Acute (7) Transient hypotension: Code(s): I95.9 - Hypotension, unspecified Status: Acute (8) Dysarthria: Code(s): R47.1 - Dysarthria and anarthria Status: Acute Plan Dysarthria 06/23 Patient was noticed to have intermittent dysarthria about 12: 30 afternoon, Patient had no focal weakness, full strength of all extremities. Patient was alert, able to follow commands, moving eyes guided by my finger move ordered stat CT of the head that showed no acute intracranial issues. Given history of CVA and noncompliant with Eliquis, patient had high risk of stroke, I consulted Dr. Prasad and neurologist, Dr. Benson at [facility], they recommended to order stat CTA Brain and carotid even though CKD. Dr Benson considered CTA should be ordered to rule out large vessel occlusions and low risk for kidney function deterioration when GFR above 35 Be considered patient most likely has encephalopathy due to cirrhosis, sepsis, because dysarthria without focal weakness has less than 2% chance of ischemic stroke CT of brain and carotid artery review no large vessel occlusion, no significant carotid and vertebral artery stenosis Per dr Benson, patient does not need to be transferred to them if no large vessel occlusion Continue telemetry monitoring and neuro check Severe sepsis with hypotension, possible due to acute colitis Patient has leukocytosis, tachycardia tachypnea, lactic acidosis, hypotension Likely resulting from acute infective colitis colitis of the sigmoid colon given CT findings Patient has abdominal pain. on empiric antibiotic therapy with Zosyn. Blood cultures and stool cultures are pending. Received fluid resuscitation monitor I&O's closely. repeat CBC and electrolyte panel with a.m. labs. still having intractable nausea and vomiting despite Zofran. add Phenergan for breakthrough nausea and vomiting. monitor on telemetry given these multiple antiemetics but patient QT intervals currently normal. Blood culture on June 22 no growth of bacteria Acute on chronic renal failure, hypokalemia Worsening BUN creatinine above baseline, likely secondary to sepsis dehydration, hypokalemia, likely secondary to poor intake Follow-up BMP, correct electrolyte abnormality accordingly Continue fluid resuscitation Consult differential repairer Creatinine is trending down slightly Syncope Patient passed cell, likely secondary to profound hypotension and sepsis Neuro check Telemetry monitoring Leukocytosis Elina
--- NOTE | 2023-06-24 10:47 | WPDNEURCNPN ---
Assessment and Plan Assessment and plan (1) Expressive aphasia: Code(s): R47.01 - Aphasia Status: Acute (2) Sepsis: Qualifiers: Acute renal failure type: unspecified Sepsis acute organ dysfunction status: with acute organ dysfunction Sepsis type: sepsis due to unspecified organism Severe sepsis acute organ dysfunction type: acute renal failure Severe sepsis shock status: without septic shock Qualified Code(s): A41.9 - Sepsis, unspecified organism; R65.20 - Severe sepsis without septic shock; N17.9 - Acute kidney failure, unspecified Code(s): A41.9 - Sepsis, unspecified organism Status: Acute (3) Colitis: Code(s): K52.9 - Noninfective gastroenteritis and colitis, unspecified Status: Acute Plan Jonathon Thurston Finger is a 68 year old male with a history of DM, HTN, cirrhosis, Hepatitis C, GERD, esophagitis, CKD who presented on 06/22 after being found unresponsive on toilet. Seems like he has had difficulty with his speech since admission, which may be a related to underlying illness. No other focal deficits were noted on exam which makes stroke less likely. If there are persistent concerns regarding speech/mental status despite appropriate treatment of underlying illness, would recommend obtaining MRI brain. Consult date: 06/24/23 Reason for consult: Aphasia HPI: Jonathon Thurston Finger is a 68 year old male with a history of DM, HTN, cirrhosis, Hepatitis C, GERD, esophagitis, CKD who presented on 06/22 after being found unresponsive on toilet. EMS was called and patient was hypotensive, requiring fluid bolus in field. Patient became more awake in the ambulance en route to ED. In the ED his blood pressure ranged from 57-79 systolic. He received agressive fluid hydration with eventual normalization of his BP. Reportedly he was AOx3 in the ED, but received multiple doses of narcotic and antiemetics. By the time patient was evaluated by the hospitalist, per her documentation, patient was somnolent, difficult to arouse, briefly answer questions with responses that were not always appropriate and at times were repetitive, intermittently following commands. Patient is currently being treated for sepsis presumably secondary to colitis. Received call from patient's hospitalist regarding acute onset aphasia yesterday afternoon. Patient reportedly has not been able to get more than a few words out, although it is unclear if his speech ever normalized since admission. CT head was done which showed no acute changes. Per hospitalist, patient has not other focal deficits. Discussed that he should have CTA brain/carotid to rule out large vessel occlusion, which was negative. Case was discussed by hospitalist with [facility] Stroke team and patient was deemed unlikely candidate for tPA/TNK as his symptoms were likely related to underlying illness. Patient reports that his speech is at baseline today. He reports that his speech issues resolved after he was able to drink water . Per patient's nurse, patient's speech issues seemed to resolve after he received a dose of morphine. Review of Systems Review of Systems: All systems reviewed & are unremarkable except as noted in HPI and below PMFSH Past Medical History Medical History Arthritis Benign prostatic hyperplasia Chronic anticoagulation Chronic kidney disease With baseline creatinine between 1.5 and 1.7 Cirrhosis Depression Diabetic peripheral neuropathy Dyslipidemia Erosive esophagitis Gastroesophageal reflux disease Hepatitis C Hyperlipidemia Insulin dependent type 2 diabetes mellitus uncontrolled by history Tobacco abuse disorder UGIB (upper gastrointestinal bleed) Surgical History Surgical History History of esophagogastroduodenoscopy (EGD) Hx laparoscopic cholecystectomy Family History Family History (Reviewed 06/24/23 @ 12:38 by Nicolette Prasad MD
[2023-06-24 12:01] LABS: Glucose Point of Care 139 mg/dl (65-105)
[2023-06-24] MEDS: ONDANSETRON INJ 4 MG/2 ML VIAL IV PUSH (16:31)
[2023-06-24 17:11] LABS: Glucose Point of Care 187 mg/dl (65-105)
[2023-06-24 20:13] LABS: Glucose Point of Care 165 mg/dl (65-105)
[2023-06-24] MEDS: PROMETHAZINE HCL 25 MG/ML AMPUL IM (20:27)
--- NOTE | 2023-06-24 20:42 | PM.EVENT ---
Event Note Event Note Event Note: Patient's diet was advanced from clear liquid to a soft low-fiber diet today. After eating this evening patient began complaining of severe abdominal pain. The patient is also been receiving several doses of morphine throughout the day. Review of CT from admission demonstrated circumferential thickening of the sigmoid with a fair amount of stool proximal to the area of circumferential thickening. The patient reportedly has not had a bowel movement in 3 weeks per nursing report. Soapsuds enema has been ordered. Will place patient on MiraLax as well. Patient would benefit from GI consult when services are available. Given the patient's increased pain with advancing of his diet will back diet back down to clear liquid.
[2023-06-24] MEDS: INSULIN GLARGINE (*BKC) 100 UNITS/ML 20 UNITS SUB-Q (21:49)
[2023-06-24] MEDS: TAMSULOSIN HCL 0.4 MG CAPSULE PO (21:53)
[2023-06-24] MEDS: POTASSIUM PHOS,M-BASIC-D-BASIC 40 MMOL in SODIUM CHLORIDE 0.9% IV 250 ML 43.89 MMOL IVPB (22:02)
[2023-06-25] VITALS (9 sets, daily range): BP systolic 147–166; BP diastolic 83–92; PULSE 71–95; RESP 18–20; TEMP 36.5–36.8; O2SAT 100; BMI 25.1
[2023-06-25] MEDS: SODIUM CHLORIDE 0.9% IV 1,000 ML 125 ML IV CONT ×2 (03:05→14:05)
[2023-06-25] MEDS: PIPERACILLIN/TAZ 2.25G/NS 50ML 2.25 GM/50 ML BAG IVPB ×4 (03:05→20:43)
[2023-06-25] MEDS: SUCRALFATE SUSP 100 MG/ML 10 ML UDC 1000 MG PO ×4 (05:16→20:43)
[2023-06-25 07:21] LABS: Glucose Point of Care 97 mg/dl (65-105)
[2023-06-25] MEDS: ENOXAPARIN 40 MG/0.4 ML SYRINGE SUB-Q (09:10)
[2023-06-25] MEDS: polyethylene glycoL 3350 17 GM POWD.PACK PO (09:10)
[2023-06-25] MEDS: PANTOPRAZOLE SODIUM IV 40 MG VIAL IV PUSH ×2 (09:10→20:43)
[2023-06-25] MEDS: POTASSIUM CHLORIDE 20 MEQ ER TABLET 40 MEQ PO ×2 (09:10→17:04)
[2023-06-25] MEDS: MORPHINE SULFATE (*CRX) 4 MG/ML INJ IV PUSH (09:24)
--- NOTE | 2023-06-25 09:46 | PM.IMPN ---
Progress Note: A&P Assessment and Plan (1) Sepsis: Qualifiers: Acute renal failure type: unspecified Sepsis acute organ dysfunction status: with acute organ dysfunction Sepsis type: sepsis due to unspecified organism Severe sepsis acute organ dysfunction type: acute renal failure Severe sepsis shock status: without septic shock Qualified Code(s): A41.9 - Sepsis, unspecified organism; R65.20 - Severe sepsis without septic shock; N17.9 - Acute kidney failure, unspecified Code(s): A41.9 - Sepsis, unspecified organism Status: Acute (2) Colitis: Code(s): K52.9 - Noninfective gastroenteritis and colitis, unspecified Status: Acute (3) Diabetes mellitus with hyperglycemia, with long-term current use of insulin: Qualifiers: Diabetes mellitus type: type 2 Qualified Code(s): E11.65 - Type 2 diabetes mellitus with hyperglycemia; Z79.4 - terminal operations manager (current) use of insulin Code(s): E11.65 - Type 2 diabetes mellitus with hyperglycemia; Z79.4 - snf (current) use of insulin Status: Acute (4) Acute hypokalemia: Code(s): E87.6 - Hypokalemia Status: Acute (5) Acute kidney injury superimposed on chronic kidney disease: Code(s): N17.9 - Acute kidney failure, unspecified; N18.9 - Chronic kidney disease, unspecified Status: Acute (6) Acute lactic acidosis: Code(s): E87.21 - Acute metabolic acidosis Status: Acute (7) Transient hypotension: Code(s): I95.9 - Hypotension, unspecified Status: Acute (8) Dysarthria: Code(s): R47.1 - Dysarthria and anarthria Status: Acute Plan Dysarthria 06/23 Patient was noticed to have intermittent dysarthria about 12: 30 afternoon, Patient had no focal weakness, full strength of all extremities. Patient was alert, able to follow commands, moving eyes guided by my finger move ordered stat CT of the head that showed no acute intracranial issues. Given history of CVA and noncompliant with Eliquis, patient had high risk of stroke, I consulted Dr. Prasad and neurologist, Dr. Benson at [facility], they recommended to order stat CTA Brain and carotid even though CKD. Dr Benson considered CTA should be ordered to rule out large vessel occlusions and low risk for kidney function deterioration when GFR above 35 Be considered patient most likely has encephalopathy due to cirrhosis, sepsis, because dysarthria without focal weakness has less than 2% chance of ischemic stroke CT of brain and carotid artery review no large vessel occlusion, no significant carotid and vertebral artery stenosis Per dr Benson, patient does not need to be transferred to them if no large vessel occlusion Continue telemetry monitoring and neuro check 06/24 Today patient is talking is at baseline, although patient has slurred speech, per patient's , this is baseline. Patient has no focal weakness, full strength of both arms and legs Severe sepsis with hypotension, possible due to acute colitis Patient has leukocytosis, tachycardia tachypnea, lactic acidosis, hypotension Likely resulting from acute infective colitis colitis of the sigmoid colon given CT findings radiologist also reports: Long segment distal sigmoid possible narrowed segment with circumferential wall thickening; consider barium enema or colonoscopy for further evaluation Patient has abdominal pain on and off on empiric antibiotic therapy with Zosyn. Blood cultures and stool cultures are pending. Received fluid resuscitation monitor I&O's closely. repeat CBC and electrolyte panel with a.m. labs. Nausea vomiting is controlled Advance to diabetic diet as tolerable consult GI for evaluaiton constipation Patient is on MiraLax 1 pack daily Start Senokot S 1 tab bid Acute on chronic renal failure, hypokalemia Worsening BUN creatinine above baseline, likely secondary to sepsis dehydration, hypokalemia, likely secondary to poor intake Follow-
[2023-06-25 10:18] LABS: Basophils Absolute Auto 0.1 K/mm3 (0.0-0.1); Basophils Percent Auto 0.6 % (0.2-1.2); Eosinophils Absolute Auto 0.2 K/mm3 (0-0.3); Eosinophils Percent Auto 2.4 % (0-4.4); Hematocrit 31.7 % (42.0-52.0); Hemoglobin 10.1 g/dL (14.0-18.0); Immature Granulocyte Absolute 0.03 K/mm3 (0.00-0.031); Immature Granulocyte Percent A 0.3 % (0-0.5); Lymphocytes Absolute Auto 1.94 K/mm3 (0.9-3.2); Lymphocytes Percent Auto 19.7 % (18.3-44.2); Mean Corpuscular HGB Conc 31.9 g/dl (32-36); Mean Corpuscular Hemoglobin 28.9 pg (26-34); Mean Corpuscular Volume 90.6 fl (80-100); Mean Platelet Volume 8.8 fl (7.4-10.4); Monocytes Absolute Auto 0.6 K/mm3 (0.1-0.6); Monocytes Percent Auto 6.3 % (2.6-8.5); Neutrophils Absolute Auto 6.9 K/mm3 (1.3-6.7); Neutrophils Percent Auto 70.7 % (45.5-73.1); Platelet Count Result 209 k/mm3 (150-375); Red Cell Distribution Width 12.4 % (11.5-14.5); White Blood Count 9.8 K/mm3 (4.5-10.0)
[2023-06-25 10:30] LABS: Anion Gap 7 mmol/L (8-16); Blood Urea Nitrogen 13 mg/dL (9-20); Calcium 7.6 mg/dL (8.4-10.2); Carbon Dioxide 24 mmol/L (22-30); Chloride 104 mmol/L (98-107); Estimated CRCL calculation 38 ml/min; Estimated Glomerular Filt Rate 43; Glucose 139 mg/dL (65-110); Potassium 4.7 mmol/L (3.4-5.0); Sodium 135 mmol/L (137-145)
[2023-06-25 11:12] LABS: Glucose Point of Care 146 mg/dl (65-105)
--- NOTE | 2023-06-25 16:26 | WPDGICN ---
Assessment and Plan Assessment and plan (1) Abnormal CT scan, sigmoid colon: Code(s): R93.3 - Abnormal findings on diagnostic imaging of other parts of digestive tract Status: Acute Assessment and Plan: patient thinks that had colonoscopy few years ago but will do colonoscopy tomorrow given abnormal CT scan he is on antibiotics, possible sepsis (2) Esophagitis: Code(s): K20.90 - Esophagitis, unspecified without bleeding Status: Acute Assessment and Plan: CT scan again with thickening esophagus last egd 2021 had erosive esophagitis- egd in am (3) Syncope: Code(s): R55 - Syncope and collapse Status: Acute Assessment and Plan: on admission, resolved had CT head (4) Acute kidney injury superimposed on chronic kidney disease: Code(s): N17.9 - Acute kidney failure, unspecified; N18.9 - Chronic kidney disease, unspecified Status: Acute Assessment and Plan: near baseline (5) Diabetes mellitus with hyperglycemia, with long-term current use of insulin: Qualifiers: Diabetes mellitus type: type 2 Qualified Code(s): E11.65 - Type 2 diabetes mellitus with hyperglycemia; Z79.4 - salvage determiner (current) use of insulin Code(s): E11.65 - Type 2 diabetes mellitus with hyperglycemia; Z79.4 - jail (current) use of insulin Status: Acute (6) Cirrhosis: Code(s): K74.60 - Unspecified cirrhosis of liver Status: Acute Assessment and Plan: hcv treated successfully (7) Transient hypotension: Code(s): I95.9 - Hypotension, unspecified Status: Acute Assessment and Plan: resolved GI Consult Note Consult date/time: 06/25/23 16:26 Reason for consult: sepsis, abnormal sigmoid by ct scan, cirrhosis HPI: Jonathon Thurston Candi is a 68 year old male with history of hypertension, smoker, insulin-dependent diabetes, chronic anemia, 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 He had EGD 2021 that showed erosive esophagitis and admitted to hospital last month with coffee ground emesis but he was discharged before we could do EGD. This time he is here after was found unresponsive on the toilet.? Patient was reportedly found with low blood pressure by EMS and treated with fluids, admitted with diagnosis of sepsis and on antibiotics. Also was hypokalemic with potassium of 3, treated and high glucose, creat 2.1 (baseline 1.9), hgb 10-11. Had some abdominal pain. CT scan reviewed, long segment distal sigmoid possible narrowed segment with circumferential wall thickening, Normal appendix, Status post cholecystectomy. Mild to moderate hiatal hernia with wall thickening, thickening of the distal esophageal wall Review of Systems Constitutional: Constitutional: Denies chills Eyes: Eyes: Denies blurry vision ENT: Reports Normal hearing present Cardiovascular: Cardiovascular: Denies chest pain Respiratory: Respiratory: Denies cough Gastrointestinal: Gastrointestinal: Reports abdominal pain and Reports constipation Genitourinary: Genitourinary: Denies dysuria Musculoskeletal: Musculoskeletal: Denies stiffness Integumentary/Breasts: Skin/Breast: Denies rash Neurologic: Denies headache(s) Psychiatric: Psychiatric: Denies behavioral changes [facility] Past Medical History Medical History (Updated 06/25/23 @ 16:32 by Raul Jordan MD) Abnormal CT scan, sigmoid colon Arthritis Benign prostatic hyperplasia Chronic anticoagulation Chronic kidney disease With baseline creatinine between 1.5 and 1.7 Cirrhosis Depression Diabetic peripheral neuropathy Dyslipidemia Erosive esophagitis Gastroesophageal reflux disease Hepatitis C Hyperlipidemia Insulin dependent type 2 diabetes mellitus uncontrolled by history Tobacco abuse disorder UGIB (upper gastrointestinal bleed) Surgical History Surgical History (Rev
[2023-06-25 16:51] LABS: Glucose Point of Care 106 mg/dl (65-105)
[2023-06-25] MEDS: SENNA/DOCUSATE SODIUM TABLET 1 TAB PO (17:05)
[2023-06-25] MEDS: polyethylene glycoL 3350 238 GM BOTTLE PO (18:42)
[2023-06-25] MEDS: BISACODYL 5 MG TABLET EC PO (18:42)
[2023-06-25] MEDS: TAMSULOSIN HCL 0.4 MG CAPSULE PO (20:43)
[2023-06-25] MEDS: INSULIN GLARGINE (*BKC) 100 UNITS/ML 20 UNITS SUB-Q (20:43)
[2023-06-25 21:01] LABS: Glucose Point of Care 143 mg/dl (65-105)
[2023-06-26] VITALS (7 sets, daily range): BP systolic 107–152; BP diastolic 65–87; PULSE 73–93; RESP 18–21; TEMP 36.6–37; O2SAT 100
[2023-06-26] MEDS: PIPERACILLIN/TAZ 2.25G/NS 50ML 2.25 GM/50 ML BAG IVPB ×4 (02:01→20:57)
--- NOTE | 2023-06-26 02:54 | PC.NURSE ---
Patient currently on bowel prep without results. Increased abdominal distention noted and increased abdominal pain per patient. Patient says he is not able to drink anything else or he will burst. Spoke with Dr. Schafer at this time. New orders received for KUB. And if not obstructed, administer soap suds enema.
[2023-06-26] MEDS: MORPHINE SULFATE (*CRX) 4 MG/ML INJ IV PUSH (04:12)
--- NOTE | 2023-06-26 05:30 | PC.NURSE ---
Dr. Schafer called and said to do a STAT CT abd/pelvis. CT done. haz tech says patient's bladder appeared to be extremely full. Bladder scan done when patient arrived to floor. Bladder scan showed >1329ml. Dr. Schafer notified. New order received to insert olsen catheter and clamp at 1000 ml for 30 min. Also instructed to do soap suds enema. Olsen inserted without difficulty. Laura urine noted. Clamped at 1L per orders. Soap suds enema given as well. No results from enema. Patient tolerated fairly well.
[2023-06-26 06:44] LABS: Basophils Absolute Auto 0.1 K/mm3 (0.0-0.1); Basophils Percent Auto 0.6 % (0.2-1.2); Eosinophils Absolute Auto 0.2 K/mm3 (0-0.3); Eosinophils Percent Auto 1.3 % (0-4.4); Hematocrit 32.2 % (42.0-52.0); Hemoglobin 10.3 g/dL (14.0-18.0); Immature Granulocyte Absolute 0.05 K/mm3 (0.00-0.031); Immature Granulocyte Percent A 0.4 % (0-0.5); Lymphocytes Absolute Auto 2.08 K/mm3 (0.9-3.2); Lymphocytes Percent Auto 18.2 % (18.3-44.2); Mean Corpuscular Hemoglobin 28.6 pg (26-34); Mean Corpuscular Volume 89.4 fl (80-100); Monocytes Absolute Auto 0.9 K/mm3 (0.1-0.6); Monocytes Percent Auto 7.4 % (2.6-8.5); Neutrophils Absolute Auto 8.3 K/mm3 (1.3-6.7); Neutrophils Percent Auto 72.1 % (45.5-73.1); Platelet Count Result 212 k/mm3 (150-375); Red Cell Distribution Width 12.2 % (11.5-14.5); White Blood Count 11.5 K/mm3 (4.5-10.0)
--- NOTE | 2023-06-26 06:47 | PC.NURSE ---
Spoke with Dr. Glez this morning and updated on overnight bowel prepping and test results. Dr. Glez says he will do a sigmoidoscopy today.
[2023-06-26 07:18] LABS: Anion Gap 6 mmol/L (8-16); Blood Urea Nitrogen 10 mg/dL (9-20); Calcium 7.7 mg/dL (8.4-10.2); Carbon Dioxide 23 mmol/L (22-30); Chloride 106 mmol/L (98-107); Estimated CRCL calculation 34 ml/min; Estimated Glomerular Filt Rate 38; Glucose 95 mg/dL (65-110); Sodium 135 mmol/L (137-145)
[2023-06-26 07:37] LABS: Glucose Point of Care 79 mg/dl (65-105)
[2023-06-26] MEDS: SODIUM CHLORIDE 0.9% IV 1,000 ML 125 ML IV CONT (10:04)
[2023-06-26] MEDS: SENNA/DOCUSATE SODIUM TABLET 1 TAB PO ×2 (10:05→16:45)
[2023-06-26] MEDS: polyethylene glycoL 3350 17 GM POWD.PACK PO (10:08)
[2023-06-26] MEDS: ENOXAPARIN 40 MG/0.4 ML SYRINGE SUB-Q (10:08)
[2023-06-26] MEDS: PANTOPRAZOLE SODIUM IV 40 MG VIAL IV PUSH ×2 (10:09→20:57)
--- NOTE | 2023-06-26 10:14 | PCPTNOTE ---
Attempted PT evaluation, Pt adamantly refused despite education/encouragement to participate. RN present during refusal.
[2023-06-26 11:17] LABS: Glucose Point of Care 75 mg/dl (65-105)
[2023-06-26 12:12] LABS: Glucose Point of Care 71 mg/dl (65-105)
[2023-06-26] MEDS: DEXTROSE 50% 25 GM/50 ML SYRINGE IV PUSH (12:17)
[2023-06-26] MEDS: LACTATED RINGERS 1,000 ML 150 ML IV CONT (12:21)
--- NOTE | 2023-06-26 12:42 | WPDANESEPPF ---
Anes - Initial Pre Proc Eval Procedure: Operation Date: 06/26/23 15:30 Proposed Procedures p Esophagogastroduodenoscopy&Screen Colon - Raul Jordan MD Date/Time: 06/26/23 12:42 Surgeon: Litzy Schafer DO Pre Op Diagnosis: LAURYN,LACTIC ACIDOSIS,ESOPHAGITIS Patient Data Age: 68 Gender: M Height: 1.85 m Weight: 86.5 kg Last Vital Signs Temp 98.1 F 06/26/23 12:19 Pulse 85 06/26/23 12:19 Resp 20 06/26/23 12:19 BP 146/84 H 06/26/23 12:19 Pulse Ox 100 06/26/23 12:19 O2 Del Method Room Air 06/26/23 12:19 Allergies Allergy/AdvReac Type Severity Reaction Status Date / Time metformin Allergy Diarrhea Verified 06/26/23 12:13 pregabalin [From Lyrica] Allergy Swelling Verified 06/26/23 12:13 venlafaxine [From Effexor] AdvReac Confusion Verified 06/26/23 12:13 Home Medications Medication Instructions Recorded Confirmed Type atorvastatin 80 mg tablet 80 mg PO DAILY 06/12/21 06/22/23 History ergocalciferol (vitamin D2) 50,000 50,000 unit PO WEEKLY 06/12/21 06/23/23 History unit tablet flash glucose sensor (FreeStyle 06/12/21 06/23/23 History Jose J 14 Day Sensor kit) folic acid 1 mg tablet 1 mg PO DAILY 06/12/21 06/23/23 History pantoprazole 40 mg tablet,delayed 40 mg PO BID #60 tabs 10/07/21 06/23/23 Rx release (Protonix) sucralfate 100 mg/mL oral 1,000 mg (10 mL) PO ACHS #1,000 mL 10/07/21 06/23/23 Rx suspension ondansetron HCl 4 mg tablet 4 mg PO Q4H #10 tabs 05/17/22 06/23/23 Rx docusate sodium 100 mg capsule 100 mg PO DAILY PRN Constipation 05/11/23 06/23/23 History hydralazine 50 mg tablet 50 mg PO BID 05/11/23 06/23/23 History insulin glargine 100 unit/mL 25 units subcut HS 05/11/23 06/23/23 History subcutaneous solution (Lantus U-100 Insulin) insulin lispro 100 unit/mL 10 unit subcut TIDWM 05/11/23 06/23/23 History subcutaneous cartridge metoprolol succinate 25 mg 25 mg PO HS 05/11/23 06/23/23 History tablet,extended release 24 hr potassium chloride 20 mEq 40 meq PO BID 05/11/23 06/23/23 History tablet,extended release (K-Tab) tamsulosin 0.4 mg capsule 0.4 mg PO HS 05/11/23 06/23/23 History tramadol 50 mg tablet 50 mg PO Q6H PRN Pain 05/11/23 06/23/23 History Laboratory Tests 06/25/23 06/25/23 06/26/23 16:33 20:41 00:15 WBC RBC Hgb Hct MCV MCH MCHC RDW Plt Count MPV Immature Gran % (Auto) Neut % (Auto) Lymph % (Auto) [place] % (Auto) Eos % (Auto) Baso % (Auto) Lymph # (Auto) [place] # (Auto) Eos # (Auto) Baso # (Auto) Abs Immat Gran (auto) Absolute Neuts (auto) Absolute Nucleated RBC Nucleated RBC % Sodium Potassium Chloride Carbon Dioxide Anion Gap BUN Creatinine Estim Creat Clear Calc Estimated GFR Glucose POC Capillary Glucose 106 H mg/dl 143 H mg/dl (65-105) (65-105) Calcium C. difficile (PCR) TNP 06/26/23 06/26/23 06/26/23 06:29 07:31 11:14 WBC 11.5 H K/mm3 (4.5-10.0) RBC 3.60 L M/mm3 (4.6-6.20) Hgb 10.3 L g/dL (14.0-18.0) Hct 32.2 L % (42.0-52.0) MCV 89.4 fl (80-100) MCH 28.6 pg (26-34) MCHC 32.0 g/dl (32-36) RDW 12.2 % (11.5-14.5) Plt Count 212 k/mm3 (150-375) MPV 9.0 fl (7.4-10.4) Immature Gran % (Auto) 0.4 % (0-0.5) Neut % (Auto) 72.1 % (45.5-73.1) Lymph % (Auto) 18.2 L % (18.3-44.2) [place] % (Auto) 7.4 % (2.6-8.5) Eos % (Auto) 1.3 % (0-4.4) Baso % (Auto) 0.6 % (0.2-1.2) Lymph #
--- NOTE | 2023-06-26 12:56 | SUR.OPER ---
EGD START: 1247; END: 1250. FLEXIBLE SIGMOIDOSCOPY START: 1254; END: 1310.
[2023-06-26 13:31] LABS: Glucose Point of Care 104 mg/dl (65-105)
--- NOTE | 2023-06-26 13:44 | PM.IMPN ---
Progress Note: A&P Assessment and Plan (1) Sepsis: Qualifiers: Sepsis type: sepsis due to unspecified organism Sepsis acute organ dysfunction status: with acute organ dysfunction Severe sepsis acute organ dysfunction type: acute renal failure Acute renal failure type: unspecified Severe sepsis shock status: without septic shock Qualified Code(s): A41.9 - Sepsis, unspecified organism; R65.20 - Severe sepsis without septic shock; N17.9 - Acute kidney failure, unspecified Code(s): A41.9 - Sepsis, unspecified organism Status: Acute (2) Colitis: Code(s): K52.9 - Noninfective gastroenteritis and colitis, unspecified Status: Acute (3) Diabetes mellitus with hyperglycemia, with long-term current use of insulin: Qualifiers: Diabetes mellitus type: type 2 Qualified Code(s): E11.65 - Type 2 diabetes mellitus with hyperglycemia; Z79.4 - superintendent container terminal (current) use of insulin Code(s): E11.65 - Type 2 diabetes mellitus with hyperglycemia; Z79.4 - residential (current) use of insulin Status: Acute (4) Acute hypokalemia: Code(s): E87.6 - Hypokalemia Status: Acute (5) Acute kidney injury superimposed on chronic kidney disease: Code(s): N17.9 - Acute kidney failure, unspecified; N18.9 - Chronic kidney disease, unspecified Status: Acute (6) Acute lactic acidosis: Code(s): E87.21 - Acute metabolic acidosis Status: Acute (7) Transient hypotension: Code(s): I95.9 - Hypotension, unspecified Status: Acute (8) Dysarthria: Code(s): R47.1 - Dysarthria and anarthria Status: Acute Plan Dysarthria 06/23 Patient was noticed to have intermittent dysarthria about 12: 30 afternoon, Patient had no focal weakness, full strength of all extremities. Patient was alert, able to follow commands, moving eyes guided by my finger move ordered stat CT of the head that showed no acute intracranial issues. Given history of CVA and noncompliant with Eliquis, patient had high risk of stroke, I consulted Dr. Prasad and neurologist, Dr. Benson at [facility], they recommended to order stat CTA Brain and carotid even though CKD. Dr Benson considered CTA should be ordered to rule out large vessel occlusions and low risk for kidney function deterioration when GFR above 35 Be considered patient most likely has encephalopathy due to cirrhosis, sepsis, because dysarthria without focal weakness has less than 2% chance of ischemic stroke CT of brain and carotid artery review no large vessel occlusion, no significant carotid and vertebral artery stenosis Per dr Benson, patient does not need to be transferred to them if no large vessel occlusion Continue telemetry monitoring and neuro check 06/24 Today patient is talking is at baseline, although patient has slurred speech, per patient's , this is baseline. Patient has no focal weakness, full strength of both arms and legs 06/26 continue PT/ OT hopeful dc tomorrow Severe sepsis with hypotension, possible due to acute colitis Patient has leukocytosis, tachycardia tachypnea, lactic acidosis, hypotension Likely resulting from acute infective colitis colitis of the sigmoid colon given CT findings radiologist also reports: Long segment distal sigmoid possible narrowed segment with circumferential wall thickening; consider barium enema or colonoscopy for further evaluation Patient has abdominal pain on and off on empiric antibiotic therapy with Zosyn. Blood cultures and stool cultures are pending. Received fluid resuscitation monitor I&O's closely. repeat CBC and electrolyte panel with a.m. labs. Nausea vomiting is controlled Advance to diabetic diet as tolerable consult GI for evaluation constipation Patient is on MiraLax 1 pack daily Start Senokot S 1 tab bid Acute on chronic renal failure, hypokalemia Worsening BUN creatinine above baseline, likely secondary to sepsis dehydration, hypokalemi
[2023-06-26] MEDS: SUCRALFATE SUSP 100 MG/ML 10 ML UDC 1000 MG PO ×2 (14:54→20:57)
[2023-06-26 16:23] LABS: Glucose Point of Care 116 mg/dl (65-105)
[2023-06-26 20:30] LABS: Glucose Point of Care 302 mg/dl (65-105)
[2023-06-26] MEDS: INSULIN GLARGINE (*BKC) 100 UNITS/ML 20 UNITS SUB-Q (20:55)
[2023-06-26] MEDS: TAMSULOSIN HCL 0.4 MG CAPSULE PO (20:57)
[2023-06-27] MEDS: traMADol HCL (*CRX) 50 MG TABLET PO (04:41)
[2023-06-27] MEDS: SODIUM CHLORIDE 0.9% IV 1,000 ML 125 ML IV CONT (04:42)
[2023-06-27] MEDS: PIPERACILLIN/TAZ 2.25G/NS 50ML 2.25 GM/50 ML BAG IVPB ×3 (04:42→17:05)
[2023-06-27] MEDS: SUCRALFATE SUSP 100 MG/ML 10 ML UDC 1000 MG PO ×2 (04:42→11:47)
[2023-06-27 05:53] VITALS: BP 160/96; PULSE 94; RESP 14; TEMP 36.2; O2SAT 100
[2023-06-27 06:29] LABS: Basophils Percent Auto 0.3 % (0.2-1.2); Eosinophils Absolute Auto 0.2 K/mm3 (0-0.3); Eosinophils Percent Auto 1.7 % (0-4.4); Hematocrit 30.5 % (42.0-52.0); Immature Granulocyte Absolute 0.03 K/mm3 (0.00-0.031); Immature Granulocyte Percent A 0.3 % (0-0.5); Lymphocytes Absolute Auto 1.58 K/mm3 (0.9-3.2); Lymphocytes Percent Auto 13.8 % (18.3-44.2); Mean Corpuscular HGB Conc 32.8 g/dl (32-36); Mean Corpuscular Volume 88.4 fl (80-100); Mean Platelet Volume 9.1 fl (7.4-10.4); Monocytes Absolute Auto 0.9 K/mm3 (0.1-0.6); Monocytes Percent Auto 8.1 % (2.6-8.5); Neutrophils Absolute Auto 8.7 K/mm3 (1.3-6.7); Neutrophils Percent Auto 75.8 % (45.5-73.1); Platelet Count Result 202 k/mm3 (150-375); Red Blood Count 3.45 M/mm3 (4.6-6.20); Red Cell Distribution Width 12.3 % (11.5-14.5); White Blood Count 11.4 K/mm3 (4.5-10.0)
[2023-06-27 06:55] LABS: Anion Gap 8 mmol/L (8-16); Blood Urea Nitrogen 9 mg/dL (9-20); Calcium 8.3 mg/dL (8.4-10.2); Carbon Dioxide 20 mmol/L (22-30); Chloride 106 mmol/L (98-107); Estimated CRCL calculation 40 ml/min; Estimated Glomerular Filt Rate 46; Glucose 97 mg/dL (65-110); Potassium 4.1 mmol/L (3.4-5.0); Sodium 134 mmol/L (137-145)
[2023-06-27 07:42] LABS: Glucose Point of Care 71 mg/dl (65-105)
[2023-06-27] MEDS: ENOXAPARIN 40 MG/0.4 ML SYRINGE SUB-Q (09:56)
[2023-06-27] MEDS: PANTOPRAZOLE SODIUM IV 40 MG VIAL IV PUSH (09:56)
[2023-06-27 11:14] LABS: Glucose Point of Care 107 mg/dl (65-105)
--- NOTE | 2023-06-27 13:39 | PM.DS ---
DS: Admitting Diagnosis Discharge Date 06/27/2023 Admitting Diagnosis Found unresponsive on the toilet DS: Discharge Diagnosis Discharge Diagnosis (1) Sepsis: Qualifiers: Acute renal failure type: unspecified Sepsis acute organ dysfunction status: with acute organ dysfunction Sepsis type: sepsis due to unspecified organism Severe sepsis acute organ dysfunction type: acute renal failure Severe sepsis shock status: without septic shock Qualified Code(s): A41.9 - Sepsis, unspecified organism; R65.20 - Severe sepsis without septic shock; N17.9 - Acute kidney failure, unspecified Code(s): A41.9 - Sepsis, unspecified organism Status: Acute (2) Colitis: Code(s): K52.9 - Noninfective gastroenteritis and colitis, unspecified Status: Acute (3) Diabetes mellitus with hyperglycemia, with long-term current use of insulin: Qualifiers: Diabetes mellitus type: type 2 Qualified Code(s): E11.65 - Type 2 diabetes mellitus with hyperglycemia; Z79.4 - jail (current) use of insulin Code(s): E11.65 - Type 2 diabetes mellitus with hyperglycemia; Z79.4 - jail (current) use of insulin Status: Acute (4) Acute hypokalemia: Code(s): E87.6 - Hypokalemia Status: Acute (5) Acute kidney injury superimposed on chronic kidney disease: Code(s): N17.9 - Acute kidney failure, unspecified; N18.9 - Chronic kidney disease, unspecified Status: Acute (6) Acute lactic acidosis: Code(s): E87.21 - Acute metabolic acidosis Status: Acute (7) Transient hypotension: Code(s): I95.9 - Hypotension, unspecified Status: Acute (8) Dysarthria: Code(s): R47.1 - Dysarthria and anarthria Status: Acute Plan Dysarthria 06/23 Patient was noticed to have intermittent dysarthria about 12: 30 afternoon, Patient had no focal weakness, full strength of all extremities. Patient was alert, able to follow commands, moving eyes guided by my finger move ordered stat CT of the head that showed no acute intracranial issues. Given history of CVA and noncompliant with Eliquis, patient had high risk of stroke, I consulted Dr. Prasad and neurologist, Dr. Benson at [facility], they recommended to order stat CTA Brain and carotid even though CKD. Dr Benson considered CTA should be ordered to rule out large vessel occlusions and low risk for kidney function deterioration when GFR above 35 Be considered patient most likely has encephalopathy due to cirrhosis, sepsis, because dysarthria without focal weakness has less than 2% chance of ischemic stroke CT of brain and carotid artery review no large vessel occlusion, no significant carotid and vertebral artery stenosis Per dr Benson, patient does not need to be transferred to them if no large vessel occlusion 06/24 Today patient is talking is at baseline, although patient has slurred speech, per patient's , this is baseline. Patient has full strength of both arms and legs, back to his baseline Severe sepsis with hypotension, possible due to acute colitis Patient has leukocytosis, tachycardia tachypnea, lactic acidosis, hypotension Likely resulting from acute infective colitis colitis of the sigmoid colon given CT findings radiologist also reports: Long segment distal sigmoid possible narrowed segment with circumferential wall thickening; consider barium enema or colonoscopy for further evaluation Patient has abdominal pain on and off on empiric antibiotic therapy with Zosyn. Blood cultures and stool cultures are pending. Received fluid resuscitation Nausea vomiting is controlled Advance to diabetic diet as tolerable consult GI for evaluation pt to continue on laxatives on dc constipation Patient is on MiraLax 1 pack daily Start Senokot S 1 tab bid Acute on chronic renal failure, hypokalemia Worsening BUN creatinine above baseline, likely secondary to sepsis dehydration, hypokalemia, likely sec
[2023-06-27 14:00] VITALS: BP 109/77; PULSE 76; RESP 16; TEMP 36.7; O2SAT 100
--- NOTE | 2023-06-27 15:27 | WPDGIPROGNO ---
Progress Note: A&P Assessment and Plan (1) Fecal impaction: Code(s): K56.41 - Fecal impaction Status: Acute Assessment and Plan: treated yesterday no lesion in sigmoid he can go home and we can complete full colonoscopy as outpatient stool softener and laxatives as needed (2) Abnormal CT scan, sigmoid colon: Code(s): R93.3 - Abnormal findings on diagnostic imaging of other parts of digestive tract Status: Acute Assessment and Plan: no stricture found fecal impaction (3) LAURYN (acute kidney injury): Code(s): N17.9 - Acute kidney failure, unspecified Status: Acute Assessment and Plan: near baseline (4) Diabetes mellitus with hyperglycemia, with long-term current use of insulin: Qualifiers: Diabetes mellitus type: type 2 Qualified Code(s): E11.65 - Type 2 diabetes mellitus with hyperglycemia; Z79.4 - alf (current) use of insulin Code(s): E11.65 - Type 2 diabetes mellitus with hyperglycemia; Z79.4 - alf (current) use of insulin Status: Acute (5) Erosive esophagitis: Code(s): K22.10 - Ulcer of esophagus without bleeding Status: Acute Assessment and Plan: persistent esophagitis continue ppi bid egd in 4 months (colonoscopy can be done at same time) Subjective Date/time seen: 06/27/23 15:27 Interval history: egd with esophagitis, colonoscopy with fecal impaction- treated manually and endoscopically, no lesions or stricture. he is feeling better after colonoscopy and going home Review of Systems Review of Systems: All systems reviewed & are unremarkable except as noted in HPI and below Exam Const: General: comfortable and no acute distress HENMT: Face/Nose/Sinus: Normal nares present Eyes: General: appearance normal, both eyes and all related structures Neck: Neck: supple Resp: Auscultation: clear to auscultation bilaterally Cardio: Rate: regular rate Rhythm: regular rhythm GI: Inspection: non-distended GI Palp: Yes Soft to palpation and No Tenderness to palpation present (GI) Auscultation: normal bowel sounds Skin: General skin exam: normal color Neuro: Speech: normal speech Motor exam (neuro): 5/5 motor strength present throughout Extrem: General: normal to inspection Psych: Mental Status: mental status grossly normal Objective Data Vital Signs Vital Signs: Vital Signs - 24 hr 06/26/23 22:00 06/26/23 20:00 06/27/23 05:53 Temperature 98.6 F 97.1 F L Pulse Rate 93 94 Respiratory Rate 18 14 Blood Pressure 152/87 H 160/96 H Pulse Oximetry 100 100 100 Oxygen Delivery Room Air 06/27/23 09:02 06/27/23 14:00 Temperature 98.0 F Pulse Rate 76 Respiratory Rate 16 Blood Pressure 109/77 Pulse Oximetry 100 Oxygen Delivery Room Air Intake/Output Intake/Output: Intake & Output 06/24/23 06/25/23 06/26/23 06/27/23 23:59 23:59 23:59 23:59 Intake Total 5374 3348 1440 1080 Output Total 9032 857 9175 2150 Balance 3820 0493 -7520 -1911 Meds/Results Medications: Active Medications Generic Name Dose Route Start Last Admin Trade Name Freq PRN Reason Stop Dose Admin Dextrose 12.5 gm 06/22/23 23:57 06/26/23 12:17 Dextrose 50% 25 Gm/50 Ml Syringe IV PUSH 12.5 gm PRN PRN Administration Hypoglycemia Protocol Enoxaparin Sodium 40 mg 06/23/23 09:00 06/27/23 09:56 Enoxaparin 40 Mg/0.4 Ml Syringe SUB-Q 40 mg DAILY JOHANNE Administration Glucagon 1 mg 06/22/23 23:57 Glucagon For Inj 1 Mg Vial IM PRN PRN Hypoglycemia Protocol Glucose 15 gm 06/22/23 23:57 Glucose Oral Gel 15 Gm Of Glucse In 37.5 Gm Tube PO PRN PRN Hypoglycemia Protocol Sodium Chloride 1,000 mls @ 125 mls/hr 06/22/23 22:10 06/27/23 04:42 Normal Saline Iv IV CONT 125 mls/hr .Q8H JOHANNE Administration Piperacillin Sod/Tazobactam Sod 2.25 gm in 50 mls @ 100 mls/hr 06/23/23 03:00 06/27/23 10:24 Zosyn 2.25 Gm/Ns 50 Ml
[2023-06-27 16:17] LABS: Glucose Point of Care 211 mg/dl (65-105)
[2023-06-27] MEDS: FINASTERIDE 5 MG TABLET PO (17:05)
[2023-06-27] MEDS: TAMSULOSIN HCL 0.4 MG CAPSULE PO (17:05)
--- NOTE | 2023-06-27 19:59 | PC.NURSE ---
Discussed with MD plans for pt leaving this afternoon. Pt still on IV fluids at 125. Requested D/C of IV fluids as pt intake good. Pt c/o pain to penis r/t olsen. Pt wanting removed. Discussed with MD as pt had it placed for retention of nearly 2K. MD okay to pull. Pulled pt olsen. Pt unable to void. Bladder scan shows 300 in. Pt frustrated at not being able to leave. Educated pt about retention and need to urinate prior to D/C. Pt upset and voiced wanting to leave AMA. Pt AMS r/t CVA. Discussed with MD and household appliances service technician. They are okay with D/C if pt will agree to place olsen, or if pt signs AMA along with who is A/O x 4. refused to sign. Gave pt additional time to void, as well as night time tamsulosin and a dose of finasteride. After two hours, pt remains unable to void. Pt finally requested olsen placement. Olsen placed with minimal discomfort. 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 Pt advised to follow up with primary and urology at discharge.
== END 2023-06-27 19:20 | disposition home or self-care (01) | DRG 872 ==
LOC: ANHED 22:07 → ANH3MEDSUR 22:44
PROVIDERS: Hospitalist; Internal Medicine; Internal Medicine Gastroenterology; Admitting Provider Internal Medicine; Emergency Provider Physician Assistant; Visit Provider Family Medicine
PROC: 0DJ08ZZ Inspection of Upper Intestinal Tract, Via Natural or Artificial Opening Endoscopic (ICD-10-PCS; CPT 43235; principal; 2023-06-26 15:30)
DX: A41.9 Sepsis, unspecified organism (principal); N17.9 Acute kidney failure, unspecified; K22.10 Ulcer of esophagus without bleeding; R65.20 Severe sepsis without septic shock; I12.9 Hypertensive chronic kidney disease with stage 1 through stage 4 chronic kidney disease, or unspecified chronic kidney disease; N40.0 Benign prostatic hyperplasia without lower urinary tract symptoms; N18.9 Chronic kidney disease, unspecified; E11.42 Type 2 diabetes mellitus with diabetic polyneuropathy; E78.5 Hyperlipidemia, unspecified; E87.6 Hypokalemia; E11.65 Type 2 diabetes mellitus with hyperglycemia; K52.9 Noninfective gastroenteritis and colitis, unspecified; K74.60 Unspecified cirrhosis of liver; K44.9 Diaphragmatic hernia without obstruction or gangrene; K56.41 Fecal impaction; K21.00 Gastro-esophageal reflux disease with esophagitis, without bleeding; M19.90 Unspecified osteoarthritis, unspecified site; R47.1 Dysarthria and anarthria; F17.210 Nicotine dependence, cigarettes, uncomplicated; Z79.4 Long term (current) use of insulin; Z79.01 Long term (current) use of anticoagulants; Z86.73 Personal history of transient ischemic attack (TIA), and cerebral infarction without residual deficits; Z86.19 Personal history of other infectious and parasitic diseases
CPT/HCPCS: 36415; 70450; 70496; 70498; 71045; 74018; 74177; 80048; 80053; 80069; 81001; 82271; 82948; 83605; 83735; 83986; 84484; 85025; 85610; 85730; 86140; 87040; 87045; 87427; 87449; 93005; 96361; 96365; 96375; 96376; 97161; 97166; 99285; A9270; C9113; G0378; J1170; J1200; J1650; J1815; J2270; J2405; J2543; J2550; J2704; J2765; J3480; J7030; J7040; J7050; J7120; Q9967

== ENCOUNTER 2023-07-13 10:28 | Emergency (ER) | payer MEDICARE, SELFPAY ==
[2023-07-13 10:37] VITALS: BP 156/79; PULSE 80; RESP 18; TEMP 36.6; O2SAT 100
--- NOTE | 2023-07-13 12:01 | ED.GENADULT ---
HPI - General Adult General Chief complaint: Unspecified Stated complaint: Patel discomfort, requesting removal Time Seen by Provider: 07/13/23 11:20 Source: patient Mode of arrival: ambulatory Limitations: no limitations History of Present Illness HPI narrative: this is a 68-year-old male With PMH of CKD, BPH, T2dm, hep C who presents to the ED for chief complaint of Patel catheter problem. Reports discomfort at the tip of the penis due to the Patel catheter. He was recently discharged from the hospital 06/27/2023 and was sent home with a Patel catheter in place as he could not give a urine sample. He states this was due to him constipated. He reports that now that he has been home he has had several regular bowel movements. He feels that he can urinate on his own. denies fevers, chills, hematuria, flank pain, abdominal pain, nausea, vomiting. Related Data Home Medications Medication Instructions Recorded Confirmed atorvastatin 80 mg tablet 80 mg PO DAILY 06/12/21 06/22/23 ergocalciferol (vitamin D2) 50,000 50,000 unit PO WEEKLY 06/12/21 06/23/23 unit tablet flash glucose sensor (FreeStyle 06/12/21 06/23/23 Jose J 14 Day Sensor kit) folic acid 1 mg tablet 1 mg PO DAILY 06/12/21 06/23/23 docusate sodium 100 mg capsule 100 mg PO DAILY PRN Constipation 05/11/23 06/23/23 hydralazine 50 mg tablet 50 mg PO BID 05/11/23 06/23/23 insulin glargine 100 unit/mL 25 units subcut HS 05/11/23 06/23/23 subcutaneous solution (Lantus U-100 Insulin) insulin lispro 100 unit/mL 10 unit subcut TIDWM 05/11/23 06/23/23 subcutaneous cartridge metoprolol succinate 25 mg 25 mg PO HS 05/11/23 06/23/23 tablet,extended release 24 hr potassium chloride 20 mEq 40 meq PO BID 05/11/23 06/23/23 tablet,extended release (K-Tab) tamsulosin 0.4 mg capsule 0.4 mg PO HS 05/11/23 06/23/23 tramadol 50 mg tablet 50 mg PO Q6H PRN Pain 05/11/23 06/23/23 Allergies Allergy/AdvReac Type Severity Reaction Status Date / Time metformin Allergy Diarrhea Verified 07/13/23 11:14 pregabalin [From Lyrica] Allergy Swelling Verified 07/13/23 11:14 venlafaxine [From Effexor] AdvReac Confusion Verified 07/13/23 11:14 Review of Systems Review of Systems: All systems as dictated in [facility] Past Medical History Medical History (Updated 07/13/23 @ 13:30 by Claude Perrin PA-C) Abnormal CT scan, sigmoid colon Arthritis Benign prostatic hyperplasia Chronic anticoagulation Chronic kidney disease With baseline creatinine between 1.5 and 1.7 Cirrhosis Depression Diabetic peripheral neuropathy Dyslipidemia Erosive esophagitis Fecal impaction Gastroesophageal reflux disease Hepatitis C Hyperlipidemia Insulin dependent type 2 diabetes mellitus uncontrolled by history Tobacco abuse disorder UGIB (upper gastrointestinal bleed) Surgical History Surgical History History of esophagogastroduodenoscopy (EGD) Hx laparoscopic cholecystectomy Family History Family History Other Unknown family medical history Social History Social History Social History: Surrogate decision maker: Mahnaz Christopher, spouse. Code status: Full code. Smoking packs per day: 1 Smoking cigarettes per day: 20.0 Years smoked: 30 Smoking pack-years: 30.00 Smoking status: Current every day smoker Tobacco type: cigarettes Second hand tobacco smoke exposure: Yes Additional smoking assessment comments: pt's spouse says pt smokes between 10 cigarettes and a pack daily Alcohol intake: never Substance use: never Substance use type: does not use Lack of Transportation: No Lack of Food: Never True Current Housing: I Have Housing Concerned About Future Housing: No Difficulty Paying Gas/Electric Bills: No Difficulty Paying for Meds: No Currently Unemployed: No Education:
[2023-07-13 12:39] LABS: Appearance Urine Clear (Clear); Bacteria Urine 2+ /hpf; Bilirubin Urine Negative (Negative); Blood Urine Negative (Negative); Color Urine Yellow (Yellow); Glucose Urine UA Negative (Negative); Ketones Urine Negative (Negative); Leukocyte Esterase Ur Trace LEU/UL (Negative); Nitrate Urine Negative (Negative); Non Pathogenic Casts 0-2; Protein Urine 1+ mg/dL (Negative); RBC Urine 0-2 /hpf (0-2); Specific Grav Ur 1.005 (1.001-1.035); Squamous Epithelial Cell Urine None seen /hpf (Few); Urobilinogen Urine 0.2 mg/dL (<2.0); pH Urine 7.5 (5.0-9.0)
[2023-07-13 13:07] LABS: Add Urine Microscopic? YES
== END 2023-07-13 13:43 | disposition home or self-care (01) ==
PROVIDERS: Emergency Provider Physician Assistant
DX: Z43.6 Encounter for attention to other artificial openings of urinary tract (principal); N39.0 Urinary tract infection, site not specified; E11.22 Type 2 diabetes mellitus with diabetic chronic kidney disease; N18.9 Chronic kidney disease, unspecified; E78.5 Hyperlipidemia, unspecified; F17.210 Nicotine dependence, cigarettes, uncomplicated
CPT/HCPCS: 81001; 87077; 87086; 87147; 87181; 87186; 99283

== ENCOUNTER 2024-09-06 14:26 | Emergency (ER) | payer MEDICARE, SELFPAY ==
--- NOTE | ~2024-09-06 | CT_ITS ---
EXAMINATION: CT brain wo con DATE: 09/06/2024 15:22 INDICATION: hi,ams . TECHNIQUE: Computed tomography (CT) of the head was performed without intravenous contrast. The mA wa s adjusted according to patient size. Iterative reconstruction technique was employed. The dose-lengt h product was 605.33 mGy-cm. COMPARISON: CT brain and CTA brain carotid 06/23/2023. FINDINGS: No acute intracranial hemorrhage or extra-axial fluid collection. No hydrocephalus, mass, or herniation. No acute ischemic infarct. Unremarkable dural venous sinus attenuation. No acute osseous abnormality. Right parietal scalp swelling/contusion. Ethmoid and right maxillary mucosal thickening, the remaining aerated spaces are clear. Moderate atrophy and chronic white matter change. Atherosclerotic intracranial calcification. Bilater al lens replacements. 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 IMPRESSION: No acute intracranial process. Reviewed, dictated and finalized at location K. F LENDING OFFICER
--- NOTE | ~2024-09-06 | XR_ITS ---
EXAMINATION: XR chest 1V Exam Date/Time: 09/06/2024 15:15 VP [employer]ATE DEVELOPMENT HISTORY: ams Comparison: 06/22/2023. RESULT: Lines, tubes, and devices: None. Lungs and pleura: Clear. Cardiomediastinal silhouette: Stable. Other: No acute osseous or upper abdominal finding. IMPRESSION: No acute cardiopulmonary process. Reviewed, dictated and finalized at location K. CORPORATE DEVELOPMENT
--- NOTE | ~2024-09-06 | CT_ITS ---
EXAMINATION: CTA brain carotid DATE: 09/06/2024 16:06 INDICATION: ams, cva w/u TECHNIQUE: Computed tomographic angiography (CTA) of the head and neck was performed with 100 mL Omni paque-350 intravenous contrast. Automated exposure control and iterative reconstruction technique wer e employed. The dose-length product was 1034.76 mGy-cm. Maximum intensity projection and volume rend ered 3D-reconstructions were created by the technologist on a separate workstation. COMPARISON: CT brain, same date; CTA brain carotid 06/23/2023. FINDINGS: CTA HEAD: No large vessel occlusion, aneurysm, high flow vascular malformation, nidus or extravasation. Patent cerebral veins. Old focal left pontine and bilateral basal ganglia lacunar infarcts, otherwise symmet slade parenchymal enhancement. CTA NECK: Aortic arch and proximal great vessels: Bovine arch anatomy. Atherosclerotic calcifications at the vi sualized aortic arch and proximal great vessels. Right common carotid, carotid bifurcation, and internal carotid artery: Calcified atherosclerotic juan que at the carotid bifurcation.There is 0% stenosis of the proximal right internal carotid artery rel ative to normal distal artery lumen diameter (NASCET criteria). Left common carotid, carotid bifurcation, and internal carotid artery: Calcified atherosclerotic plaq ue at the carotid bifurcation.There is 0% stenosis of the proximal left internal carotid artery relat ilya to normal distal artery lumen diameter (NASCET criteria). Vertebral arteries: No significant plaque or stenosis. Right vertebral artery is dominant, Other findings: Degenerative changes in the cervical spine. Right posterior neck subcutaneous cyst. D ental caries and periodontal disease. Enlarged enhancing right inferior parotid lymph node. IMPRESSION: No large vessel intracranial occlusion, high-grade intracranial stenosis, or aneurysm. No carotid or vertebral artery occlusion, dissection, or significant stenosis. Reviewed, dictated and finalized at location K. 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 No carotid or vertebral artery occlusion, dissection, or significant stenosis.
--- NOTE | 2024-09-06 14:29 | ECG_ITS ---
Test Date: 2024-09-06 14:35:17 Measurements Intervals West Rate: 67 P: 13 WY: 209 QRS: -60 QRSD: 117 T: -34 QT: 452 QTc: 478 Interpretive Statements SINUS RHYTHM WITH FIRST DEGREE AV BLOCK LEFT ANTERIOR FASCICULAR BLOCK CANNOT R/O SEPTAL INFARCT, AGE INDETERMINATE BORDERLINE ST-T WAVE ABNORMALITY- ANTEROLAT/INF LEADS BASELINE ARTIFACT- I, II, III, AVR, AVL, AVF, V1-V6 ABNORMAL ECG No previous ECG available for comparison Electronically Signed On 09-06-2024 19:26:38 [employer] by Aric Lee D.O.
--- NOTE | 2024-09-06 14:30 | ED_ITS ---
HPI - Neuro Symptoms/Deficit General Chief Complaint: Suspected CVA <Maddie Real PA-C - Last Filed: 09/07/24 02:52> Stated Complaint: cva? <SANTOS White Last Filed: 09/07/24 02:52> Time Seen by Provider: 09/06/24 14:30 <SANTOS White Last Filed: 09/07/24 02:52> Source: patient and old records reviewed <SANTOS White Last Filed: 09/07/24 02:52> Mode of arrival: EMS <SANTOS White Last Filed: 09/07/24 02:52> Limitations: clinical condition <SANTOS White Last Filed: 09/07/24 02:52> History of Present Illness HPI Narrative: Patient is a 69-year-old male, with PMH of DM, HTN, cirrhosis, Hepatitis C, CKD, GERD/esophagitis, who presents the ED via EMS with report of altered mental status. Per EMS report, reported that patient had a fall last night and hit his head. Patient is unable to tell me how the fall occurred. reports she found him on the floor at 2am and was c/o KENNEDY. gave him Tylenol and patient back to sleep. Woke up around 7am this morning and was still c/o KENNEDY. Around 930am this morning, thought patient was having some garbled speech, states some of his words were incomprehensible. She also noted he had a blank stare at that time. Sx's continued to worsen throughout the day and noted patient becoming increasingly weak, so EMS was then contacted this afternoon. Patient complains of pain to his head. Denies any other areas of pain. He does not appear to be on any blood thinners currently per records. In his records, does report history of Eliquis noncompliance, previous CVA. states he has previous Hx of GIB and was taken off anticoagulation. Has been admitted here for similar episodes of altered mental status/dysarthria. History of UTIs. reports hx of forgetfulness, states he may not normally know the date/month. She feels he is at his baseline currently. <Maddie Real PA-C - Last Filed: 09/07/24 02:52> Related Data Home Medications: Home Medications ?Medication ?Instructions ?Recorded ?Confirmed ?Last Taken ?Type atorvastatin 80 mg tablet 80 mg PO DAILY 06/12/21 06/22/23 3 Days Ago History ~06/19/23 ergocalciferol (vitamin D2) 50,000 50,000 unit PO WEEKLY 06/12/21 06/23/23 06/18/23 History unit tablet flash glucose sensor (FreeStyle 06/12/21 06/23/23 Unknown History Jose J 14 Day Sensor kit) folic acid 1 mg tablet 1 mg PO DAILY 06/12/21 06/23/23 3 Days Ago History ~06/20/23 docusate sodium 100 mg capsule 100 mg PO DAILY PRN Constipation 05/11/23 06/23/23 3 Days Ago History ~06/20/23 hydralazine 50 mg tablet 50 mg PO BID 05/11/23 06/23/23 3 Days Ago History ~06/20/23 insulin glargine 100 unit/mL 25 units subcut HS 05/11/23 06/23/23 1 Day Ago History subcutaneous solution (Lantus ~06/22/23 U-100 Insulin) insulin lispro 100 unit/mL 10 unit subcut TIDWM 05/11/23 06/23/23 1 Day Ago History subcutaneous cartridge ~06/22/23 metoprolol succinate 25 mg 25 mg PO HS 05/11/23 06/23/23 3 Days Ago History tablet,extended release 24 hr ~06/20/23 potassium chloride 20 mEq 40 meq PO BID 05/11/23 06/23/23 2 Days Ago History tablet,extended release (K-Tab) ~06/21/23 tamsulosin 0.4 mg capsule 0.4 mg PO HS 05/11/23 06/23/23 3 Days Ago History ~06/20/23 tramadol 50 mg tablet 50 mg PO Q6H PRN Pain 05/11/23 06/23/23 3 Days Ago History ~06/20/23 <Maddie Real PA-C - Last Filed: 09/07/24 02:52> Allergies/Adverse Reactions: Allergies Allergy/AdvReac Type Severity Reaction Status Date / Time metformin Allergy Diarrhea Verified 07/13/23 11:14 pregabalin (From Lyrica) Allergy Swelling Verified 07/13/23 11:14 venlafaxine (From Effexor) AdvReac Confusion Verified 07/13/23 11:14 <Maddie Real PA-C - Last Filed: 09/07/24 02:52> Review of Systems 2 Review of Systems: All systems reviewed & are unremarkable except as noted in HPI. <Maddie Real PA-C - Last Filed: 09/07/24 02:52> All systems reviewed & are unremarkable except as noted in HPI and below < Maddie Real PA-C - Last Filed: 09/07/24 02:52> [facility] Past Medical History Medical History: Medical History Fecal impaction Abnormal CT scan, sigmoid colon Chronic anticoagulation Hyperlipidemia Erosive esophagitis UGIB (upper gastrointestinal bleed) Tobacco abuse disorder Depression Arthritis Chronic kidney disease With baseline creatinine between 1.5 and 1.7 Benign prostatic hyperplasia Diabetic peripheral neuropathy Hepatitis C Gastroesophageal reflux disease Dyslipidemia Insulin dependent type 2 diabetes mellitus uncontrolled by history Cirrhosis <Maddie Real PA-C - Last Filed: 09/07/24 02:52> Surgical History Surgical History: Surgical History Hx laparoscopic cholecystectomy History of esophagogastroduodenoscopy (EGD) <Maddie Real PA-C - Last Filed: 09/07/24 02:52> Family History Family History: Family History Other Unknown family medical history <Maddie Real PA-C - Last Filed: 09/07/24 02:52> Social History Social History: Social History Social History: Surrogate decision maker: Mahnaz Christopher, spouse. Code status: Full code. Smoking packs per day: 1 Smoking cigarettes per day: 20.0 Years smoked: 30 Smoking pack-years: 30.00 Smoking status: Current every day smoker Tobacco type: cigarettes Second hand tobacco smoke exposure: Yes Additional smoking assessment comments: pt's spouse says pt smokes between 10 cigarettes and a pack daily Alcohol intake: never Substance use: never Substance use type: does not use Lack of Transportation: No Lack of Food: Never True Current Housing: I Have Housing Concerned About Future Housing: No Difficulty Paying Gas/Electric Bills: No Difficulty Paying for Meds: No Currently Unemployed: No Education: High School Diploma/GED Difficulty w/ Childcare or Family Care: No Additional living arrangements comments: The patient lives with his in [place]. Additional occupation/education comments: Retired. Spiritual care concerns: No <Maddie Real PA-C - Last Filed: 09/07/24 02:52> Exam 2 Narrative: GENERAL: Elderly, mildly ill appearing, non-toxic, in no acute distress. HEAD: Normocephalic, atraumatic. EYES: PERRL/EOMI, conjunctivae clear bilaterally. No appreciable nystagmus. No gaze deviation. NECK: Supple. No meningeal signs. RESPIRATORY: Airway patent, respirations nonlabored. Coarse lung sounds in bases bilaterally. No focal rhonchi/wheezing. CARDIOVASCULAR: Regular rate and rhythm without murmurs, rubs, or gallops. Peripheral pulses 2+ and equal bilaterally. ABDOMINAL: Soft, nontender, nondistended. Normoactive BS. MUSCULOSKELETAL: Moves all extremities. No gross deformities. SKIN: Warm, dry, normal color. No rashes. NEURO: A&O X2. Knows his name and that he is in [facility]. When asked the year or the month, patient responded 55 or 54. Speech is clear but somewhat muffled due to patient being edentulous. No apparent dysarthria or aphasia. He is [employer]. Follows some commands, had difficulty with finger to nose testing, particularly on L arm with LUE being more uncoordinated than R. L document clerk strength is slightly weaker than R. CN II-XII grossly intact. No appreciable facial droop. Sensation grossly intact. No ataxic movements. Strength 5/5 in lower extremities bilaterally. No pronator drift. PSYCHIATRIC: Appropriate mood and affect. Normal interaction. <Maddie Real PA-C - Last Filed: 09/07/24 02:52> Course CAMPAIGN ANALYST/PA Physician Supervision For this patient encounter, I reviewed the CAMPAIGN ANALYST or PA documentation, treatment plan, and medical decision making; and I had [id number] time with this patient. I had an extensive conversation with both the patient and his . I do suspect the patient may have had TIA versus CVA. Patient does appear back to his normal baseline. Both patient and were able to express the risk that if he was to go home he could have additional stroke and he could . Patient was very adamant about not staying. I did communicate that the patient was welcome to return to the emergency department at any time to complete his medical workup. <Jamal Hathaway MD - Last Filed: 09/07/24 07:37> Vital Signs Vital signs: Vital Signs Temperature 98.2 F 09/06/24 14:34 Pulse Rate 68 09/06/24 14:34 Respiratory Rate 16 09/06/24 14:34 Blood Pressure 123/88 09/06/24 14:34 Pulse Oximetry 100 09/06/24 14:34 Oxygen Delivery Room Air 09/06/24 14:34 Temperature 98.2 F 09/06/24 14:34 Pulse Rate 60 09/06/24 17:55 Respiratory Rate 16 09/06/24 17:55 Blood Pressure 164/88 H 09/06/24 17:55 Pulse Oximetry 96 09/06/24 17:55 Oxygen Delivery Room Air 09/06/24 14:34 <Maddie Real PA-C - Last Filed: 09/07/24 02:52> Vital Signs Temperature 98.2 F 09/06/24 14:34 Pulse Rate 68 09/06/24 14:34 Respiratory Rate 16 09/06/24 14:34 Blood Pressure 123/88 09/06/24 14:34 Pulse Oximetry 100 09/06/24 14:34 Oxygen Delivery Room Air 09/06/24 14:34 Temperature 98.2 F 09/06/24 14:34 Pulse Rate 60 09/06/24 17:55 Respiratory Rate 16 09/06/24 17:55 Blood Pressure 164/88 H 09/06/24 17:55 Pulse Oximetry 96 09/06/24 17:55 Oxygen Delivery Room Air 09/06/24 14:34 <Jamal Hathaway MD - Last Filed: 09/07/24 07:37> MDM - Neuro Symptoms/Deficit MDM Narrative Medical decision making narrative: Patient presented to ED with altered mental status, fall with possible head injury last night, reporting headache today. Sent to the ED by . Vital signs are stable upon arrival. Patient is in no acute distress. Patient's neurologic exam was notable for slight weakness of left upper extremity document clerk strength and slight discoordination of left upper extremity with [id number] testing compared to R. However, patient does have difficulty following commands and this may be effort related. There does not appear to be any strength discrepancies in lower extremities. No obvious facial droop or CN palsy. Alert oriented x2 at this time. Unsure of year or month, though does note hx of forgetfulness and states it is not abnormal for him to not know this. LKW at least 930am this morning, possibly earlier. Patient is certainly out of the window for any thrombolytics/TNK. CVA/TIA w/u was obtained. CT brain negative. CTA brain/carotids unremarkable. No remarkable stenosis. No LVO CXR clear. EKG nonischemic. Cbc without leukocytosis. H&H is stable. CMP with potassium low at 3.0. Oral and IV replacement ordered. Patient has had hyperkalemia issues in the past per records. Patient took PO KCl but refused IV KCl, stated he had a bad reaction in the past. ED nurse attempted to explain why this was ordered and indicated, however patient declined. Creatinine today 1.8. Consistent with previous records. Blood glucose mildly elevated to 160. Lactic acid within normal range at 1.9. Magnesium was also low at 1.3. IV replacement ordered for this as well. Lactic acid WNL. CK WNL. Troponin WNL at 0.013. Consistent with previous records. Viral swabs are negative. Attempted to obtain urine sample. Patient repeatedly states that he does not need to urinate. He was bladder scanned and noted to have greater than 450 mL of urine in his bladder. Discussed catheterization for acute retention, however patient declines to receive catheter. Fluids are ongoing. 1725 - Patient was able to give urine sample. Sent for UA. No evidence of infection. Post void residual bladder scan still showed > 500mL urine. Re- discussed catheter with patient and family, explained that acute urinary retention can predispose patient to infection, worsening kidney function, back flow of urine/hydronephrosis. Patient adamantly refuses catheter. patient was initially confused upon arrival to the ED. does report that patient is back to his baseline now. states she will not go against patient's wishes or allow catheter. Discussed my recommendation for patient to be admitted for further evaluation of CVA/TIA, neurologic consultation, MRI, w/u for retention. Explained the reasoning behind admission and my concern for an acute neurologic event today. Workup is otherwise fairly non revealing for a cause of patient's altered mental status. Patient states that he absolutely will not stay in the hospital. States he does not wish to be admitted. States he just wants to go home. States he is not confused. Again does report that patient is now back at his baseline. patient became frustrated and agitated, attempting to get out of the bed. I disconnected patient's IV attempted to deescalate the situation by explaining my concerns. Patient voiced understanding of concerns but is adamant that he will not be staying in the hospital. would like to respect the patient's wishes. Discussed that if patient wanted to leave the facility at this time, but he would need to sign out against medical advice. Discussed the risks of doing so including CVA, , disability, cardiac arrest. Patient and stated in their own words that they are aware patient if patient were to leave he could have a stroke and . Voiced understanding of all risks of leaving AMA. Refusing further workup or any further care. AMA paperwork signed. <SANTOS White Last Filed: 09/07/24 02:52> Medical Records Attestation: I reviewed the patient's medical records. <SANTOS White Last Filed: 09/07/24 02:52> Lab Data Attestation: I reviewed the patient's lab results. <SANTOS White Last Filed: 09/07/24 02:52> Result diagrams: 09/06/24 14:58 09/06/24 14:58 <SANTOS White Last Filed: 09/07/24 02:52> Labs: Lab Results 09/06/24 09/06/24 09/06/24 Range/Units 14:58 14:58 14:58 WBC 7.6 (4.5-10.0) K/mm3 RBC 3.92 L (4.6-6.20) M/mm3 Hgb 11.9 L (14.0-18.0) g/dL Hct 34.4 L (42.0-52.0) % MCV 87.8 (80-100) fl MCH 30.4 (26-34) pg MCHC 34.6 (32-36) g/dl RDW 12.9 (11.5-14.5) % Plt Count 198 (150-375) k/mm3 MPV 9.9 (7.4-10.4) fl Immature Gran % (Auto) 0.4 (0-0.5) % Neut % (Auto) 65.6 (45.5-73.1) % Lymph % (Auto) 24.2 (18.3-44.2) % [place] % (Auto) 6.7 (2.6-8.5) % Eos % (Auto) 2.4 (0-4.4) % Baso % (Auto) 0.7 (0.2-1.2) % Lymph # (Auto) 1.84 (0.9-3.2) K/mm3 [place] # (Auto) 0.5 (0.1-0.6) K/mm3 Eos # (Auto) 0.2 (0-0.3) K/mm3 Baso # (Auto) 0.1 (0.0-0.1) K/mm3 Abs Immat Gran (auto) 0.03 (0.00-0.031) K/mm3 Absolute Neuts (auto) 5.0 (1.3-6.7) K/mm3 Absolute Nucleated RBC 0.000 (0.0-0.012) K/mm3 Nucleated RBC % 0.0 (0.0-0.2) % PT 13.6 (11.1-14.7) Seconds INR 1.0 APTT 28.8 (22.3-36.8) Seconds Sodium Cancelled 138 Potassium Cancelled 3.0 L Chloride Cancelled Carbon Dioxide Anion Gap BUN Creatinine Estim Creat Clear Calc Estimated GFR Glucose POC Capillary Glucose (65-105) mg/dl Lactic Acid (0.7-2.0) mmol/L Calcium Magnesium (1.6-2.3) mg/dL Total Bilirubin AST ALT Alkaline Phosphatase Total Creatine Kinase (55-170) U/L Troponin I (0.000-0.034) ng/mL Total Protein Albumin Lipase (23-300) U/L Urine Color (Yellow) Urine Appearance (Clear) Urine pH (5.0-9.0) Ur Specific [place] (1.001-1.035) Urine Protein (Negative) mg/dL Urine Glucose (UA) (Negative) mg/dL Urine Ketones (Negative) mg/dL Ur Blood (Man) (Negative) Urine Nitrate (Negative) Urine Bilirubin (Negative) Urine Urobilinogen (<2.0) mg/dL Leukocyte Esterase Rfl (Negative) AMY/UL Urine RBC (0-2) /hpf Urine WBC (0-3) /hpf Ur Squamous Epith Cells (Few) /hpf Urine Bacteria /hpf Urine Casts Influenza A (RT-PCR) (Negative) Influenza B (RT-PCR) (Negative) RSV (RT-PCR) (Negative) SARS-CoV-2 RNA (RT-PCR) (Negative) 09/06/24 09/06/24 09/06/24 Range/Units 14:58 14:58 14:58 WBC (4.5-10.0) K/mm3 RBC (4.6-6.20) M/mm3 Hgb (14.0-18.0) g/dL Hct (42.0-52.0) % MCV (80-100) fl MCH (26-34) pg MCHC (32-36) g/dl RDW (11.5-14.5) % Plt Count (150-375) k/mm3 MPV (7.4-10.4) fl Immature Gran % (Auto) (0-0.5) % Neut % (Auto) (45.5-73.1) % Lymph % (Auto) (18.3-44.2) % [place] % (Auto) (2.6-8.5) % Eos % (Auto) (0-4.4) % Baso % (Auto) (0.2-1.2) % Lymph # (Auto) (0.9-3.2) K/mm3 [place] # (Auto) (0.1-0.6) K/mm3 Eos # (Auto) (0-0.3) K/mm3 Baso # (Auto) (0.0-0.1) K/mm3 Abs Immat Gran (auto) (0.00-0.031) K/mm3 Absolute Neuts (auto) (1.3-6.7) K/mm3 Absolute Nucleated RBC (0.0-0.012) K/mm3 Nucleated RBC % (0.0-0.2) % PT (11.1-14.7) Seconds INR APTT (22.3-36.8) Seconds Sodium Potassium Chloride 95 L Carbon Dioxide Cancelled 35 H Anion Gap Cancelled 8 BUN Cancelled Creatinine Estim Creat Clear Calc Estimated GFR Glucose POC Capillary Glucose (65-105) mg/dl Lactic Acid (0.7-2.0) mmol/L Calcium Magnesium (1.6-2.3) mg/dL Total Bilirubin AST ALT Alkaline Phosphatase Total Creatine Kinase (55-170) U/L Troponin I (0.000-0.034) ng/mL Total Protein Albumin Lipase (23-300) U/L Urine Color (Yellow) Urine Appearance (Clear) Urine pH (5.0-9.0) Ur Specific [place] (1.001-1.035) Urine Protein (Negative) mg/dL Urine Glucose (UA) (Negative) mg/dL Urine Ketones (Negative) mg/dL Ur Blood (Man) (Negative) Urine Nitrate (Negative) Urine Bilirubin (Negative) Urine Urobilinogen (<2.0) mg/dL Leukocyte Esterase Rfl (Negative) AMY/UL Urine RBC (0-2) /hpf Urine WBC (0-3) /hpf Ur Squamous Epith Cells (Few) /hpf Urine Bacteria /hpf Urine Casts Influenza A (RT-PCR) (Negative) Influenza B (RT-PCR) (Negative) RSV (RT-PCR) (Negative) SARS-CoV-2 RNA (RT-PCR) (Negative) 09/06/24 09/06/24 09/06/24 Range/Units 14:58 14:58 14:58 WBC (4.5-10.0) K/mm3 RBC (4.6-6.20) M/mm3 Hgb (14.0-18.0) g/dL Hct (42.0-52.0) % MCV (80-100) fl MCH (26-34) pg MCHC (32-36) g/dl RDW (11.5-14.5) % Plt Count (150-375) k/mm3 MPV (7.4-10.4) fl Immature Gran % (Auto) (0-0.5) % Neut % (Auto) (45.5-73.1) % Lymph % (Auto) (18.3-44.2) % [place] % (Auto) (2.6-8.5) % Eos % (Auto) (0-4.4) % Baso % (Auto) (0.2-1.2) % Lymph # (Auto) (0.9-3.2) K/mm3 [place] # (Auto) (0.1-0.6) K/mm3 Eos # (Auto) (0-0.3) K/mm3 Baso # (Auto) (0.0-0.1) K/mm3 Abs Immat Gran (auto) (0.00-0.031) K/mm3 Absolute Neuts (auto) (1.3-6.7) K/mm3 Absolute Nucleated RBC (0.0-0.012) K/mm3 Nucleated RBC % (0.0-0.2) % PT (11.1-14.7) Seconds INR APTT (22.3-36.8) Seconds Sodium Potassium Chloride Carbon Dioxide Anion Gap BUN 21 H D Creatinine Cancelled 1.82 H Estim Creat Clear Calc Cancelled Not Reportable Estimated GFR Cancelled Glucose POC Capillary Glucose (65-105) mg/dl Lactic Acid (0.7-2.0) mmol/L Calcium Magnesium (1.6-2.3) mg/dL Total Bilirubin AST ALT Alkaline Phosphatase Total Creatine Kinase (55-170) U/L Troponin I (0.000-0.034) ng/mL Total Protein Albumin Lipase (23-300) U/L Urine Color (Yellow) Urine Appearance (Clear) Urine pH (5.0-9.0) Ur Specific [place] (1.001-1.035) Urine Protein (Negative) mg/dL Urine Glucose (UA) (Negative) mg/dL Urine Ketones (Negative) mg/dL Ur Blood (Man) (Negative) Urine Nitrate (Negative) Urine Bilirubin (Negative) Urine Urobilinogen (<2.0) mg/dL Leukocyte Esterase Rfl (Negative) AMY/UL Urine RBC (0-2) /hpf Urine WBC (0-3) /hpf Ur Squamous Epith Cells (Few) /hpf Urine Bacteria /hpf Urine Casts Influenza A (RT-PCR) (Negative) Influenza B (RT-PCR) (Negative) RSV (RT-PCR) (Negative) SARS-CoV-2 RNA (RT-PCR) (Negative) 09/06/24 09/06/24 09/06/24 Range/Units 14:58 14:58 14:58 WBC (4.5-10.0) K/mm3 RBC (4.6-6.20) M/mm3 Hgb (14.0-18.0) g/dL Hct (42.0-52.0) % MCV (80-100) fl MCH (26-34) pg MCHC (32-36) g/dl RDW (11.5-14.5) % Plt Count (150-375) k/mm3 MPV (7.4-10.4) fl Immature Gran % (Auto) (0-0.5) % Neut % (Auto) (45.5-73.1) % Lymph % (Auto) (18.3-44.2) % [place] % (Auto) (2.6-8.5) % Eos % (Auto) (0-4.4) % Baso % (Auto) (0.2-1.2) % Lymph # (Auto) (0.9-3.2) K/mm3 [place] # (Auto) (0.1-0.6) K/mm3 Eos # (Auto) (0-0.3) K/mm3 Baso # (Auto) (0.0-0.1) K/mm3 Abs Immat Gran (auto) (0.00-0.031) K/mm3 Absolute Neuts (auto) (1.3-6.7) K/mm3 Absolute Nucleated RBC (0.0-0.012) K/mm3 Nucleated RBC % (0.0-0.2) % PT (11.1-14.7) Seconds INR APTT (22.3-36.8) Seconds Sodium Potassium Chloride Carbon Dioxide Anion Gap BUN Creatinine Estim Creat Clear Calc Estimated GFR 45 L Glucose Cancelled 190 H POC Capillary Glucose (65-105) mg/dl Lactic Acid 1.9 (0.7-2.0) mmol/L Calcium Cancelled 9.4 Magnesium 1.3 L (1.6-2.3) mg/dL Total Bilirubin Cancelled AST ALT Alkaline Phosphatase Total Creatine Kinase (55-170) U/L Troponin I (0.000-0.034) ng/mL Total Protein Albumin Lipase (23-300) U/L Urine Color (Yellow) Urine Appearance (Clear) Urine pH (5.0-9.0) Ur Specific [place] (1.001-1.035) Urine Protein (Negative) mg/dL Urine Glucose (UA) (Negative) mg/dL Urine Ketones (Negative) mg/dL Ur Blood (Man) (Negative) Urine Nitrate (Negative) Urine Bilirubin (Negative) Urine Urobilinogen (<2.0) mg/dL Leukocyte Esterase Rfl (Negative) AMY/UL Urine RBC (0-2) /hpf Urine WBC (0-3) /hpf Ur Squamous Epith Cells (Few) /hpf Urine Bacteria /hpf Urine Casts Influenza A (RT-PCR) (Negative) Influenza B (RT-PCR) (Negative) RSV (RT-PCR) (Negative) SARS-CoV-2 RNA (RT-PCR) (Negative) 09/06/24 09/06/24 09/06/24 Range/Units 14:58 14:58 14:58 WBC (4.5-10.0) K/mm3 RBC (4.6-6.20) M/mm3 Hgb (14.0-18.0) g/dL Hct (42.0-52.0) % MCV (80-100) fl MCH (26-34) pg MCHC (32-36) g/dl RDW (11.5-14.5) % Plt Count (150-375) k/mm3 MPV (7.4-10.4) fl Immature Gran % (Auto) (0-0.5) % Neut % (Auto) (45.5-73.1) % Lymph % (Auto) (18.3-44.2) % [place] % (Auto) (2.6-8.5) % Eos % (Auto) (0-4.4) % Baso % (Auto) (0.2-1.2) % Lymph # (Auto) (0.9-3.2) K/mm3 [place] # (Auto) (0.1-0.6) K/mm3 Eos # (Auto) (0-0.3) K/mm3 Baso # (Auto) (0.0-0.1) K/mm3 Abs Immat Gran (auto) (0.00-0.031) K/mm3 Absolute Neuts (auto) (1.3-6.7) K/mm3 Absolute Nucleated RBC (0.0-0.012) K/mm3 Nucleated RBC % (0.0-0.2) % PT (11.1-14.7) Seconds INR APTT (22.3-36.8) Seconds Sodium Potassium Chloride Carbon Dioxide Anion Gap BUN Creatinine Estim Creat Clear Calc Estimated GFR Glucose POC Capillary Glucose (65-105) mg/dl Lactic Acid (0.7-2.0) mmol/L Calcium Magnesium (1.6-2.3) mg/dL Total Bilirubin 1.6 H AST Cancelled 17 ALT Cancelled 18 Alkaline Phosphatase Cancelled Total Creatine Kinase (55-170) U/L Troponin I (0.000-0.034) ng/mL Total Protein Albumin Lipase (23-300) U/L Urine Color (Yellow) Urine Appearance (Clear) Urine pH (5.0-9.0) Ur Specific [place] (1.001-1.035) Urine Protein (Negative) mg/dL Urine Glucose (UA) (Negative) mg/dL Urine Ketones (Negative) mg/dL Ur Blood (Man) (Negative) Urine Nitrate (Negative) Urine Bilirubin (Negative) Urine Urobilinogen (<2.0) mg/dL Leukocyte Esterase Rfl (Negative) AMY/UL Urine RBC (0-2) /hpf Urine WBC (0-3) /hpf Ur Squamous Epith Cells (Few) /hpf Urine Bacteria /hpf Urine Casts Influenza A (RT-PCR) (Negative) Influenza B (RT-PCR) (Negative) RSV (RT-PCR) (Negative) SARS-CoV-2 RNA (RT-PCR) (Negative) 09/06/24 09/06/24 09/06/24 Range/Units 14:58 14:58 14:58 WBC (4.5-10.0) K/mm3 RBC (4.6-6.20) M/mm3 Hgb (14.0-18.0) g/dL Hct (42.0-52.0) % MCV (80-100) fl MCH (26-34) pg MCHC (32-36) g/dl RDW (11.5-14.5) % Plt Count (150-375) k/mm3 MPV (7.4-10.4) fl Immature Gran % (Auto) (0-0.5) % Neut % (Auto) (45.5-73.1) % Lymph % (Auto) (18.3-44.2) % [place] % (Auto) (2.6-8.5) % Eos % (Auto) (0-4.4) % Baso % (Auto) (0.2-1.2) % Lymph # (Auto) (0.9-3.2) K/mm3 [place] # (Auto) (0.1-0.6) K/mm3 Eos # (Auto) (0-0.3) K/mm3 Baso # (Auto) (0.0-0.1) K/mm3 Abs Immat Gran (auto) (0.00-0.031) K/mm3 Absolute Neuts (auto) (1.3-6.7) K/mm3 Absolute Nucleated RBC (0.0-0.012) K/mm3 Nucleated RBC % (0.0-0.2) % PT (11.1-14.7) Seconds INR APTT (22.3-36.8) Seconds Sodium Potassium Chloride Carbon Dioxide Anion Gap BUN Creatinine Estim Creat Clear Calc Estimated GFR Glucose POC Capillary Glucose (65-105) mg/dl Lactic Acid (0.7-2.0) mmol/L Calcium Magnesium (1.6-2.3) mg/dL Total Bilirubin AST ALT Alkaline Phosphatase 73 Total Creatine Kinase 117 (55-170) U/L Troponin I 0.013 (0.000-0.034) ng/mL Total Protein Cancelled 8.0 Albumin Cancelled 4.2 Lipase 151 (23-300) U/L Urine Color (Yellow) Urine Appearance (Clear) Urine pH (5.0-9.0) Ur Specific [place] (1.001-1.035) Urine Protein (Negative) mg/dL Urine Glucose (UA) (Negative) mg/dL Urine Ketones (Negative) mg/dL Ur Blood (Man) (Negative) Urine Nitrate (Negative) Urine Bilirubin (Negative) Urine Urobilinogen (<2.0) mg/dL Leukocyte Esterase Rfl (Negative) AMY/UL Urine RBC (0-2) /hpf Urine WBC (0-3) /hpf Ur Squamous Epith Cells (Few) /hpf Urine Bacteria /hpf Urine Casts Influenza A (RT-PCR) Negative (Negative) Influenza B (RT-PCR) Negative (Negative) RSV (RT-PCR) Negative (Negative) SARS-CoV-2 RNA (RT-PCR) Negative (Negative) 09/06/24 09/06/24 Range/Units 15:29 17:17 WBC (4.5-10.0) K/mm3 RBC (4.6-6.20) M/mm3 Hgb (14.0-18.0) g/dL Hct (42.0-52.0) % MCV (80-100) fl MCH (26-34) pg MCHC (32-36) g/dl RDW (11.5-14.5) % Plt Count (150-375) k/mm3 MPV (7.4-10.4) fl Immature Gran % (Auto) (0-0.5) % Neut % (Auto) (45.5-73.1) % Lymph % (Auto) (18.3-44.2) % [place] % (Auto) (2.6-8.5) % Eos % (Auto) (0-4.4) % Baso % (Auto) (0.2-1.2) % Lymph # (Auto) (0.9-3.2) K/mm3 [place] # (Auto) (0.1-0.6) K/mm3 Eos # (Auto) (0-0.3) K/mm3 Baso # (Auto) (0.0-0.1) K/mm3 Abs Immat Gran (auto) (0.00-0.031) K/mm3 Absolute Neuts (auto) (1.3-6.7) K/mm3 Absolute Nucleated RBC (0.0-0.012) K/mm3 Nucleated RBC % (0.0-0.2) % PT (11.1-14.7) Seconds INR APTT (22.3-36.8) Seconds Sodium Potassium Chloride Carbon Dioxide Anion Gap BUN Creatinine Estim Creat Clear Calc Estimated GFR Glucose POC Capillary Glucose 160 H (65-105) mg/dl Lactic Acid (0.7-2.0) mmol/L Calcium Magnesium (1.6-2.3) mg/dL Total Bilirubin AST ALT Alkaline Phosphatase Total Creatine Kinase (55-170) U/L Troponin I (0.000-0.034) ng/mL Total Protein Albumin Lipase (23-300) U/L Urine Color Yellow (Yellow) Urine Appearance Clear (Clear) Urine pH 6.0 (5.0-9.0) Ur Specific [place] 1.028 (1.001-1.035) Urine Protein 2+ H (Negative) mg/dL Urine Glucose (UA) 3+ H (Negative) mg/dL Urine Ketones Negative (Negative) mg/dL Ur Blood (Man) Negative (Negative) Urine Nitrate Negative (Negative) Urine Bilirubin Negative (Negative) Urine Urobilinogen 1.0 (<2.0) mg/dL Leukocyte Esterase Rfl Negative (Negative) AMY/UL Urine RBC 0-2 (0-2) /hpf Urine WBC 0-5 (0-3) /hpf Ur Squamous Epith Cells None seen (Few) /hpf Urine Bacteria None seen /hpf Urine Casts 0-2 Influenza A (RT-PCR) (Negative) Influenza B (RT-PCR) (Negative) RSV (RT-PCR) (Negative) SARS-CoV-2 RNA (RT-PCR) (Negative) <Maddie Real PA-C - Last Filed: 09/07/24 02:52> Lab Results 09/06/24 09/06/24 09/06/24 Range/Units 14:58 14:58 14:58 WBC 7.6 (4.5-10.0) K/mm3 RBC 3.92 L (4.6-6.20) M/mm3 Hgb 11.9 L (14.0-18.0) g/dL Hct 34.4 L (42.0-52.0) % MCV 87.8 (80-100) fl MCH 30.4 (26-34) pg MCHC 34.6 (32-36) g/dl RDW 12.9 (11.5-14.5) % Plt Count 198 (150-375) k/mm3 MPV 9.9 (7.4-10.4) fl Immature Gran % (Auto) 0.4 (0-0.5) % Neut % (Auto) 65.6 (45.5-73.1) % Lymph % (Auto) 24.2 (18.3-44.2) % [place] % (Auto) 6.7 (2.6-8.5) % Eos % (Auto) 2.4 (0-4.4) % Baso % (Auto) 0.7 (0.2-1.2) % Lymph # (Auto) 1.84 (0.9-3.2) K/mm3 [place] # (Auto) 0.5 (0.1-0.6) K/mm3 Eos # (Auto) 0.2 (0-0.3) K/mm3 Baso # (Auto) 0.1 (0.0-0.1) K/mm3 Abs Immat Gran (auto) 0.03 (0.00-0.031) K/mm3 Absolute Neuts (auto) 5.0 (1.3-6.7) K/mm3 Absolute Nucleated RBC 0.000 (0.0-0.012) K/mm3 Nucleated RBC % 0.0 (0.0-0.2) % PT 13.6 (11.1-14.7) Seconds INR 1.0 APTT 28.8 (22.3-36.8) Seconds Sodium Cancelled 138 Potassium Cancelled 3.0 L Chloride Cancelled Carbon Dioxide Anion Gap BUN Creatinine Estim Creat Clear Calc Estimated GFR Glucose POC Capillary Glucose (65-105) mg/dl Lactic Acid (0.7-2.0) mmol/L Calcium Magnesium (1.6-2.3) mg/dL Total Bilirubin AST ALT Alkaline Phosphatase Total Creatine Kinase (55-170) U/L Troponin I (0.000-0.034) ng/mL Total Protein Albumin Lipase (23-300) U/L Urine Color (Yellow) Urine Appearance (Clear) Urine pH (5.0-9.0) Ur Specific [place] (1.001-1.035) Urine Protein (Negative) mg/dL Urine Glucose (UA) (Negative) mg/dL Urine Ketones (Negative) mg/dL Ur Blood (Man) (Negative) Urine Nitrate (Negative) Urine Bilirubin (Negative) Urine Urobilinogen (<2.0) mg/dL Leukocyte Esterase Rfl (Negative) AMY/UL Urine RBC (0-2) /hpf Urine WBC (0-3) /hpf Ur Squamous Epith Cells (Few) /hpf Urine Bacteria /hpf Urine Casts Influenza A (RT-PCR) (Negative) Influenza B (RT-PCR) (Negative) RSV (RT-PCR) (Negative) SARS-CoV-2 RNA (RT-PCR) (Negative) 09/06/24 09/06/24 09/06/24 Range/Units 14:58 14:58 14:58 WBC (4.5-10.0) K/mm3 RBC (4.6-6.20) M/mm3 Hgb (14.0-18.0) g/dL Hct (42.0-52.0) % MCV (80-100) fl MCH (26-34) pg MCHC (32-36) g/dl RDW (11.5-14.5) % Plt Count (150-375) k/mm3 MPV (7.4-10.4) fl Immature Gran % (Auto) (0-0.5) % Neut % (Auto) (45.5-73.1) % Lymph % (Auto) (18.3-44.2) % [place] % (Auto) (2.6-8.5) % Eos % (Auto) (0-4.4) % Baso % (Auto) (0.2-1.2) % Lymph # (Auto) (0.9-3.2) K/mm3 [place] # (Auto) (0.1-0.6) K/mm3 Eos # (Auto) (0-0.3) K/mm3 Baso # (Auto) (0.0-0.1) K/mm3 Abs Immat Gran (auto) (0.00-0.031) K/mm3 Absolute Neuts (auto) (1.3-6.7) K/mm3 Absolute Nucleated RBC (0.0-0.012) K/mm3 Nucleated RBC % (0.0-0.2) % PT (11.1-14.7) Seconds INR APTT (22.3-36.8) Seconds Sodium Potassium Chloride 95 L Carbon Dioxide Cancelled 35 H Anion Gap Cancelled 8 BUN Cancelled Creatinine Estim Creat Clear Calc Estimated GFR Glucose POC Capillary Glucose (65-105) mg/dl Lactic Acid (0.7-2.0) mmol/L Calcium Magnesium (1.6-2.3) mg/dL Total Bilirubin AST ALT Alkaline Phosphatase Total Creatine Kinase (55-170) U/L Troponin I (0.000-0.034) ng/mL Total Protein Albumin Lipase (23-300) U/L Urine Color (Yellow) Urine Appearance (Clear) Urine pH (5.0-9.0) Ur Specific [place] (1.001-1.035) Urine Protein (Negative) mg/dL Urine Glucose (UA) (Negative) mg/dL Urine Ketones (Negative) mg/dL Ur Blood (Man) (Negative) Urine Nitrate (Negative) Urine Bilirubin (Negative) Urine Urobilinogen (<2.0) mg/dL Leukocyte Esterase Rfl (Negative) AMY/UL Urine RBC (0-2) /hpf Urine WBC (0-3) /hpf Ur Squamous Epith Cells (Few) /hpf Urine Bacteria /hpf Urine Casts Influenza A (RT-PCR) (Negative) Influenza B (RT-PCR) (Negative) RSV (RT-PCR) (Negative) SARS-CoV-2 RNA (RT-PCR) (Negative) 09/06/24 09/06/24 09/06/24 Range/Units 14:58 14:58 14:58 WBC (4.5-10.0) K/mm3 RBC (4.6-6.20) M/mm3 Hgb (14.0-18.0) g/dL Hct (42.0-52.0) % MCV (80-100) fl MCH (26-34) pg MCHC (32-36) g/dl RDW (11.5-14.5) % Plt Count (150-375) k/mm3 MPV (7.4-10.4) fl Immature Gran % (Auto) (0-0.5) % Neut % (Auto) (45.5-73.1) % Lymph % (Auto) (18.3-44.2) % [place] % (Auto) (2.6-8.5) % Eos % (Auto) (0-4.4) % Baso % (Auto) (0.2-1.2) % Lymph # (Auto) (0.9-3.2) K/mm3 [place] # (Auto) (0.1-0.6) K/mm3 Eos # (Auto) (0-0.3) K/mm3 Baso # (Auto) (0.0-0.1) K/mm3 Abs Immat Gran (auto) (0.00-0.031) K/mm3 Absolute Neuts (auto) (1.3-6.7) K/mm3 Absolute Nucleated RBC (0.0-0.012) K/mm3 Nucleated RBC % (0.0-0.2) % PT (11.1-14.7) Seconds INR APTT (22.3-36.8) Seconds Sodium Potassium Chloride Carbon Dioxide Anion Gap BUN 21 H D Creatinine Cancelled 1.82 H Estim Creat Clear Calc Cancelled Not Reportable Estimated GFR Cancelled Glucose POC Capillary Glucose (65-105) mg/dl Lactic Acid (0.7-2.0) mmol/L Calcium Magnesium (1.6-2.3) mg/dL Total Bilirubin AST ALT Alkaline Phosphatase Total Creatine Kinase (55-170) U/L Troponin I (0.000-0.034) ng/mL Total Protein Albumin Lipase (23-300) U/L Urine Color (Yellow) Urine Appearance (Clear) Urine pH (5.0-9.0) Ur Specific [place] (1.001-1.035) Urine Protein (Negative) mg/dL Urine Glucose (UA) (Negative) mg/dL Urine Ketones (Negative) mg/dL Ur Blood (Man) (Negative) Urine Nitrate (Negative) Urine Bilirubin (Negative) Urine Urobilinogen (<2.0) mg/dL Leukocyte Esterase Rfl (Negative) AMY/UL Urine RBC (0-2) /hpf Urine WBC (0-3) /hpf Ur Squamous Epith Cells (Few) /hpf Urine Bacteria /hpf Urine Casts Influenza A (RT-PCR) (Negative) Influenza B (RT-PCR) (Negative) RSV (RT-PCR) (Negative) SARS-CoV-2 RNA (RT-PCR) (Negative) 09/06/24 09/06/24 09/06/24 Range/Units 14:58 14:58 14:58 WBC (4.5-10.0) K/mm3 RBC (4.6-6.20) M/mm3 Hgb (14.0-18.0) g/dL Hct (42.0-52.0) % MCV (80-100) fl MCH (26-34) pg MCHC (32-36) g/dl RDW (11.5-14.5) % Plt Count (150-375) k/mm3 MPV (7.4-10.4) fl Immature Gran % (Auto) (0-0.5) % Neut % (Auto) (45.5-73.1) % Lymph % (Auto) (18.3-44.2) % [place] % (Auto) (2.6-8.5) % Eos % (Auto) (0-4.4) % Baso % (Auto) (0.2-1.2) % Lymph # (Auto) (0.9-3.2) K/mm3 [place] # (Auto) (0.1-0.6) K/mm3 Eos # (Auto) (0-0.3) K/mm3 Baso # (Auto) (0.0-0.1) K/mm3 Abs Immat Gran (auto) (0.00-0.031) K/mm3 Absolute Neuts (auto) (1.3-6.7) K/mm3 Absolute Nucleated RBC (0.0-0.012) K/mm3 Nucleated RBC % (0.0-0.2) % PT (11.1-14.7) Seconds INR APTT (22.3-36.8) Seconds Sodium Potassium Chloride Carbon Dioxide Anion Gap BUN Creatinine Estim Creat Clear Calc Estimated GFR 45 L Glucose Cancelled 190 H POC Capillary Glucose (65-105) mg/dl Lactic Acid 1.9 (0.7-2.0) mmol/L Calcium Cancelled 9.4 Magnesium 1.3 L (1.6-2.3) mg/dL Total Bilirubin Cancelled AST ALT Alkaline Phosphatase Total Creatine Kinase (55-170) U/L Troponin I (0.000-0.034) ng/mL Total Protein Albumin Lipase (23-300) U/L Urine Color (Yellow) Urine Appearance (Clear) Urine pH (5.0-9.0) Ur Specific [place] (1.001-1.035) Urine Protein (Negative) mg/dL Urine Glucose (UA) (Negative) mg/dL Urine Ketones (Negative) mg/dL Ur Blood (Man) (Negative) Urine Nitrate (Negative) Urine Bilirubin (Negative) Urine Urobilinogen (<2.0) mg/dL Leukocyte Esterase Rfl (Negative) AMY/UL Urine RBC (0-2) /hpf Urine WBC (0-3) /hpf Ur Squamous Epith Cells (Few) /hpf Urine Bacteria /hpf Urine Casts Influenza A (RT-PCR) (Negative) Influenza B (RT-PCR) (Negative) RSV (RT-PCR) (Negative) SARS-CoV-2 RNA (RT-PCR) (Negative) 09/06/24 09/06/24 09/06/24 Range/Units 14:58 14:58 14:58 WBC (4.5-10.0) K/mm3 RBC (4.6-6.20) M/mm3 Hgb (14.0-18.0) g/dL Hct (42.0-52.0) % MCV (80-100) fl MCH (26-34) pg MCHC (32-36) g/dl RDW (11.5-14.5) % Plt Count (150-375) k/mm3 MPV (7.4-10.4) fl Immature Gran % (Auto) (0-0.5) % Neut % (Auto) (45.5-73.1) % Lymph % (Auto) (18.3-44.2) % [place] % (Auto) (2.6-8.5) % Eos % (Auto) (0-4.4) % Baso % (Auto) (0.2-1.2) % Lymph # (Auto) (0.9-3.2) K/mm3 [place] # (Auto) (0.1-0.6) K/mm3 Eos # (Auto) (0-0.3) K/mm3 Baso # (Auto) (0.0-0.1) K/mm3 Abs Immat Gran (auto) (0.00-0.031) K/mm3 Absolute Neuts (auto) (1.3-6.7) K/mm3 Absolute Nucleated RBC (0.0-0.012) K/mm3 Nucleated RBC % (0.0-0.2) % PT (11.1-14.7) Seconds INR APTT (22.3-36.8) Seconds Sodium Potassium Chloride Carbon Dioxide Anion Gap BUN Creatinine Estim Creat Clear Calc Estimated GFR Glucose POC Capillary Glucose (65-105) mg/dl Lactic Acid (0.7-2.0) mmol/L Calcium Magnesium (1.6-2.3) mg/dL Total Bilirubin 1.6 H AST Cancelled 17 ALT Cancelled 18 Alkaline Phosphatase Cancelled Total Creatine Kinase (55-170) U/L Troponin I (0.000-0.034) ng/mL Total Protein Albumin Lipase (23-300) U/L Urine Color (Yellow) Urine Appearance (Clear) Urine pH (5.0-9.0) Ur Specific [place] (1.001-1.035) Urine Protein (Negative) mg/dL Urine Glucose (UA) (Negative) mg/dL Urine Ketones (Negative) mg/dL Ur Blood (Man) (Negative) Urine Nitrate (Negative) Urine Bilirubin (Negative) Urine Urobilinogen (<2.0) mg/dL Leukocyte Esterase Rfl (Negative) AMY/UL Urine RBC (0-2) /hpf Urine WBC (0-3) /hpf Ur Squamous Epith Cells (Few) /hpf Urine Bacteria /hpf Urine Casts Influenza A (RT-PCR) (Negative) Influenza B (RT-PCR) (Negative) RSV (RT-PCR) (Negative) SARS-CoV-2 RNA (RT-PCR) (Negative) 09/06/24 09/06/24 09/06/24 Range/Units 14:58 14:58 14:58 WBC (4.5-10.0) K/mm3 RBC (4.6-6.20) M/mm3 Hgb (14.0-18.0) g/dL Hct (42.0-52.0) % MCV (80-100) fl MCH (26-34) pg MCHC (32-36) g/dl RDW (11.5-14.5) % Plt Count (150-375) k/mm3 MPV (7.4-10.4) fl Immature Gran % (Auto) (0-0.5) % Neut % (Auto) (45.5-73.1) % Lymph % (Auto) (18.3-44.2) % [place] % (Auto) (2.6-8.5) % Eos % (Auto) (0-4.4) % Baso % (Auto) (0.2-1.2) % Lymph # (Auto) (0.9-3.2) K/mm3 [place] # (Auto) (0.1-0.6) K/mm3 Eos # (Auto) (0-0.3) K/mm3 Baso # (Auto) (0.0-0.1) K/mm3 Abs Immat Gran (auto) (0.00-0.031) K/mm3 Absolute Neuts (auto) (1.3-6.7) K/mm3 Absolute Nucleated RBC (0.0-0.012) K/mm3 Nucleated RBC % (0.0-0.2) % PT (11.1-14.7) Seconds INR APTT (22.3-36.8) Seconds Sodium Potassium Chloride Carbon Dioxide Anion Gap BUN Creatinine Estim Creat Clear Calc Estimated GFR Glucose POC Capillary Glucose (65-105) mg/dl Lactic Acid (0.7-2.0) mmol/L Calcium Magnesium (1.6-2.3) mg/dL Total Bilirubin AST ALT Alkaline Phosphatase 73 Total Creatine Kinase 117 (55-170) U/L Troponin I 0.013 (0.000-0.034) ng/mL Total Protein Cancelled 8.0 Albumin Cancelled 4.2 Lipase 151 (23-300) U/L Urine Color (Yellow) Urine Appearance (Clear) Urine pH (5.0-9.0) Ur Specific [place] (1.001-1.035) Urine Protein (Negative) mg/dL Urine Glucose (UA) (Negative) mg/dL Urine Ketones (Negative) mg/dL Ur Blood (Man) (Negative) Urine Nitrate (Negative) Urine Bilirubin (Negative) Urine Urobilinogen (<2.0) mg/dL Leukocyte Esterase Rfl (Negative) AMY/UL Urine RBC (0-2) /hpf Urine WBC (0-3) /hpf Ur Squamous Epith Cells (Few) /hpf Urine Bacteria /hpf Urine Casts Influenza A (RT-PCR) Negative (Negative) Influenza B (RT-PCR) Negative (Negative) RSV (RT-PCR) Negative (Negative) SARS-CoV-2 RNA (RT-PCR) Negative (Negative) 09/06/24 09/06/24 Range/Units 15:29 17:17 WBC (4.5-10.0) K/mm3 RBC (4.6-6.20) M/mm3 Hgb (14.0-18.0) g/dL Hct (42.0-52.0) % MCV (80-100) fl MCH (26-34) pg MCHC (32-36) g/dl RDW (11.5-14.5) % Plt Count (150-375) k/mm3 MPV (7.4-10.4) fl Immature Gran % (Auto) (0-0.5) % Neut % (Auto) (45.5-73.1) % Lymph % (Auto) (18.3-44.2) % [place] % (Auto) (2.6-8.5) % Eos % (Auto) (0-4.4) % Baso % (Auto) (0.2-1.2) % Lymph # (Auto) (0.9-3.2) K/mm3 [place] # (Auto) (0.1-0.6) K/mm3 Eos # (Auto) (0-0.3) K/mm3 Baso # (Auto) (0.0-0.1) K/mm3 Abs Immat Gran (auto) (0.00-0.031) K/mm3 Absolute Neuts (auto) (1.3-6.7) K/mm3 Absolute Nucleated RBC (0.0-0.012) K/mm3 Nucleated RBC % (0.0-0.2) % PT (11.1-14.7) Seconds INR APTT (22.3-36.8) Seconds Sodium Potassium Chloride Carbon Dioxide Anion Gap BUN Creatinine Estim Creat Clear Calc Estimated GFR Glucose POC Capillary Glucose 160 H (65-105) mg/dl Lactic Acid (0.7-2.0) mmol/L Calcium Magnesium (1.6-2.3) mg/dL Total Bilirubin AST ALT Alkaline Phosphatase Total Creatine Kinase (55-170) U/L Troponin I (0.000-0.034) ng/mL Total Protein Albumin Lipase (23-300) U/L Urine Color Yellow (Yellow) Urine Appearance Clear (Clear) Urine pH 6.0 (5.0-9.0) Ur Specific [place] 1.028 (1.001-1.035) Urine Protein 2+ H (Negative) mg/dL Urine Glucose (UA) 3+ H (Negative) mg/dL Urine Ketones Negative (Negative) mg/dL Ur Blood (Man) Negative (Negative) Urine Nitrate Negative (Negative) Urine Bilirubin Negative (Negative) Urine Urobilinogen 1.0 (<2.0) mg/dL Leukocyte Esterase Rfl Negative (Negative) AMY/UL Urine RBC 0-2 (0-2) /hpf Urine WBC 0-5 (0-3) /hpf Ur Squamous Epith Cells None seen (Few) /hpf Urine Bacteria None seen /hpf Urine Casts 0-2 Influenza A (RT-PCR) (Negative) Influenza B (RT-PCR) (Negative) RSV (RT-PCR) (Negative) SARS-CoV-2 RNA (RT-PCR) (Negative) <Jamal Hathaway MD - Last Filed: 09/07/24 07:37> Imaging Data Attestation: I personally reviewed and interpreted this imaging study as follows: < Maddie Real PA-C - Last Filed: 09/07/24 02:52> Radiologist's impression: ITS Impressions Head CT 09/06/24 15:23 IMPRESSION: No acute intracranial process. Chest X-Ray 09/06/24 15:26 IMPRESSION: No acute cardiopulmonary process. Head/Neck CTA 09/06/24 16:07 IMPRESSION: No large vessel intracranial occlusion, high-grade intracranial stenosis, or aneurysm. No carotid or vertebral artery occlusion, dissection, or significant stenosis. <Maddie Real PA-C - Last Filed: 09/07/24 02:52> ECG Data EKG #1: Attestation: I personally reviewed and interpreted this ECG as follows: <Maddie Real PA-C - Last Filed: 09/07/24 02:52> ECG completion date: 09/06/24 <SANTOS White Last Filed: 09/07/24 02:52> ECG completion time: 14:35 <SANTOS White Last Filed: 09/07/24 02:52> EKG Interpretation: normal rate (67), sinus rhythm and non-specific ST changes <SANTOS White Last Filed: 09/07/24 02:52> Discharge Plan Discharge Clinical Impression: Acute urinary retention, Hypokalemia, Hypomagnesemia Altered mental status Qualifiers: Altered mental status type: unspecified Qualified Code(s): R41.82 - Altered mental status, unspecified <SANTOS White Last Filed: 09/07/24 02:52> Patient Disposition: Left Against Medical Advice <SANTOS White Last Filed: 09/07/24 02:52> Condition: Guarded Prognosis <SANTOS White Last Filed: 09/07/24 02:52> Patient Language: Chinese <SANTOS White Last Filed: 09/07/24 02:52> Prescriptions: No Action atorvastatin 80 mg Tablet 80 mg PO DAILY ergocalciferol (vitamin D2) 50,000 unit Tablet 50,000 unit PO WEEKLY Rx Instructions: folic acid 1 mg Tablet 1 mg PO DAILY (DME) FreeStyle Jose J 14 Day Sensor Kit MISCELLANEOUS insulin glargine [Lantus U-100 Insulin] 100 unit/mL solution 25 units subcut HS insulin lispro 100 unit/mL cartridge 10 unit SUBCUT TIDWM potassium chloride [K-Tab] 20 mEq tablet extended release 40 meq PO BID tramadol 50 mg tablet 50 mg PO Q6H PRN (Reason: Pain) tamsulosin 0.4 mg Capsule 0.4 mg PO HS docusate sodium 100 mg Capsule 100 mg PO DAILY PRN (Reason: Constipation) hydralazine 50 mg tablet 50 mg PO BID metoprolol succinate 25 mg tablet extended release 24 hr 25 mg PO HS sucralfate 100 mg/mL Suspension 1,000 mg PO ACHS Qty: 1000 5RF Rx Instructions: 1 tablet before breakfast and supper pantoprazole [Protonix] 40 mg tablet,delayed release (DR/EC) 40 mg PO BID Qty: 60 11RF Patient Comments: pt states all of his home meds were confirmed by his spouse while in [place] tonight ondansetron HCl 4 mg tablet 4 mg PO Q4H Qty: 10 0RF Rx Instructions: 1st dose 1-2 hr before radiation polyethylene glycol 3350 [Miralax] 17 gram Powder In Packet 17 g PO QAM Qty: 30 0RF sucralfate 100 mg/mL Suspension 1,000 mg PO ACHS Qty: 300 0RF amoxicillin-pot clavulanate [Augmentin] 500-125 mg tablet 1 tablet PO TID Qty: 30 0RF cephalexin 500 mg capsule 500 mg PO Q8H 7 Days Qty: 21 0RF <SANTOS White Last Filed: 09/07/24 02:52> Follow-up/Referrals: UNKNOWN,DOCTOR [Primary Care Provider] - <SANTOS White Last Filed: 09/07/24 02:52> Quality Stroke Scale Stroke Scale 1: Stroke scale date:: 09/06/24 <SANTOS White Last Filed: 09/07/24 02:52> Stroke scale time:: 14:50 <SANTOS White Last Filed: 09/07/24 02:52> 1a Level of consciousness: alert-0 <SANTOS White Last Filed: 09/07/24 02:52> 1b Level of consciousness questions: answers one correctly-1 <SANTOS White Last Filed: 09/07/24 02:52> 1c Level of consciousness commands: obeys both correctly-0 <SANTOS White Last Filed: 09/07/24 02:52> 2 Best gaze: normal-0 <SANTOS White Last Filed: 09/07/24 02:52> 3 Visual: no visual loss-0 <SANTOS White Last Filed: 09/07/24 02:52> 4 Facial palsy: normal-0 <SANTOS White Last Filed: 09/07/24 02:52> 5a Motor: left arm: drift-1 <SANTOS White Last Filed: 09/07/24 02:52> 5b Motor: right arm: no drift-0 <SANTOS White Last Filed: 09/07/24 02:52> 6a Motor: left leg: no drift-0 <SANTOS White Last Filed: 09/07/24 02:52> 6b Motor: right leg: no drift-0 <SANTOS White Last Filed: 09/07/24 02:52> 7 Limb ataxia: present in one limb-1 <Maddie Real PA-C - Last Filed: 09/07/24 02:52> 8 Sensory: normal-0 <Maddie Real PA-C - Last Filed: 09/07/24 02:52> 9 Best language: no aphasia-0 <SANTOS White Last Filed: 09/07/24 02:52> 10 Dysarthria: normal-0 <Maddie Real PA-C - Last Filed: 09/07/24 02:52> 11 Extinction and inattention: no abnormality-0 <Maddie Real PA-C - Last Filed: 09/07/24 02:52> Level:: 3 <SANTOS White Last Filed: 09/07/24 02:52> 3 <Jamal Hathaway MD - Last Filed: 09/07/24 07:37>
[2024-09-06 14:34] VITALS: BP 123/88; PULSE 68; RESP 16; TEMP 36.8; O2SAT 100
--- OUTSIDE RECORDS SUMMARY | 2024-09-06 14:35 | XMS_ITS | Referral Summary ---
Author Organization [facility] Address [address] [place] [address] Care Team Providers Care Optical Laboratory Manager Name Role Phone Maricruz Ramirez MD Primary Care Provider + Allergies Active Allergy Reactions Criticality Noted Date Comments Apixaban Other (See comments) Low 11/06/2022 Makes ulcers bleed more Metformin Diarrhea,Stomach upset Medium 01/01/2019 Severe Pregabalin Swelling Medium 04/17/2019 Ankle swelling Venlafaxine Nausea & Vomiting Low 12/19/2021 Confusion Medications insulin glargine (LANTUS,BASAGLAR ) 100 unit/mL (3 mL) insulin penIndications:t ype 2 diabetes Inject 25 Units under the skin nightly 8 Active atorvastatin (LIPITOR) 80 mg tabletIndication s:hyperlipidemia Take 1 tablet (80 mg total) by mouth nightly Active insulin lispro (HumaLOG, ADMELOG) 100 unit/mL injectionIndicat ions:type 2 diabetes mellitus Inject 10-20 Units under the skin 3 (three) times a day before meals 10-20U TID with meals depending on size of meal. Active FreeStyle Jose J 14 Day Sensor kitIndications:t ype 2 diabetes Inject under the skin continuous CGM 1 Active promethazine (PHENERGAN) 25 mg tabletIndication s:Nausea and Vomiting Take 1 tablet (25 mg total) by mouth as needed for nausea or vomiting 1 Active midodrine (PROAMATINE) 2.5 mg tablet Take 1 tablet (2.5 mg total) by mouth as needed (hypotension) 1 Active folic acid (FOLVITE) 1 mg tabletIndication s:Folate Deficiency Take 1 tablet (1 mg total) by mouth every morning 1 Active ergocalciferol (VITAMIN D) 50,000 unit capsuleIndicatio ns:Vitamin D Deficiency Take 1 capsule (50,000 Units total) by mouth once a week Mondays 1 Active hydrALAZINE (APRESOLINE) 50 mg tabletIndication s:hypertension Take 1 tablet (50 mg total) by mouth 3 (three) times a day 2 Active metoprolol XL (TOPROL-XL) 25 mg extended release tabletIndication s:hypertension Take 1 tablet (25 mg total) by mouth nightly 2 Active sucralfate (CARAFATE) 1 gram tabletIndication s:Heartburn,stom ach Take 1 tablet (1 g total) by mouth 2 (two) times a day 3 Active docusate sodium (STOOL SOFTENER ORAL)Indications :constipation Take 1 tablet by mouth as needed (constipation) Active traMADoL (ULTRAM) 50 mg tablet Take 1 tablet (50 mg total) by mouth every 6 (six) hours as needed for pain 3 Active tamsulosin (FLOMAX) 0.4 mg extended release capsuleIndicatio ns:benign prostatic hyperplasia with lower urinary tract sx Take 1 capsule (0.4 mg total) by mouth nightly 3 Active prednisoLONE acetate (PRED FORTE) 1 % ophthalmic suspension Administer 1 drop into the right eye 4 (four) times a day Start after surgery 1 drop at breakfast, lunch, dinner, bedtime 10 mL 1 3 Active ofloxacin (OCUFLOX) 0.3 % ophthalmic solution Administer 1 drop into the right eye 4 (four) times a day Start after surgery 1 drop at breakfast, lunch, dinner, bedtime 5 mL 1 3 Active Eliquis 2.5 mg tablet Take 1 tablet (2.5 mg total) by mouth 2 (two) times a day Active ondansetron (ZOFRAN) 4 mg tablet TAKE 1 TABLET BY MOUTH EVERY 4 HOURS. TAKE 1ST DOSE 1-2 HOURS BEFORE RADIATION 2 Active Active Problems Problem Noted Date Diagnosed Date S/P cataract extraction, right 02/14/2023 Assessment & Plan (03/20/2023 2:33 PM CDT): PO1M cataract extraction (CE)/posterior chamber intraocular lens (PCIOL) The posterior chamber intraocular lens (PCIOL) is in good position, intraocular pressure (IOP) normotensive - healed well. Educated on symptoms of PCO should develop. There is mild non-proliferative diabetic retinopathy (NPDR) noted both eyes (OU) without macular edema. Educated on findings, stressed importance of close blood sugar and blood pressure control and monitoring. Assessment & Plan (02/20/2023 4:12 PM CDT): POW #1 s/p CE/PCIOL OD - Doing well - D/C ofloxacin - Taper prednisolone TID -> BID -> qday, per week - Reviewed signs/symptoms endophthalmitis, RT/RD; patient to call immediately if any worsening vision, pain, redness, flashes/floaters/curtains. - Okay to resume all activities, except refrain from swimming for one more week. Okay to discontinue Pena shield at night. - RTC 1 month for DFEx, MRx (if patient wants updated glasses) Assessment & Plan (02/14/2023 12:54 PM CDT): POD #1 s/p CE/PCIOL OD - Doing well - Prednisolone QID OD - Ofloxacin QID OD - Reviewed signs/symptoms endophthalmitis, RT/RD; patient to call immediately if any worsening vision, pain, redness, flashes/floaters/curtains - No lifting/bending/swimming. Pena shield while sleeping, protective eyewear during day. - RTC 1 week S/P cataract extraction, left 01/03/2023 Assessment & Plan (02/20/2023 4:13 PM CDT): - Doing well, monitor Assessment & Plan (01/31/2023 8:37 AM CDT): POM #1 s/p CEIOL OS - Doing well on PF taper - No RT/RD on DFEx OS today - Decrease PF to qday x1 week then D/C - Hold on MRx pending CEIOL OD The patient was instructed to call immediately if he experiences worsening vision, redness, pain, photophobia, flashes, floaters, curtains, or any other vision changes. Assessment & Plan (01/17/2023 3:48 PM CDT): POW #2 s/p CE/PCIOL OS - Doing well; has mild residual K edema likely causing reduced BCVA. No CME on macular OCT today. - D/C ofloxacin - Taper prednisolone TID -> BID -> qday, per week - Reviewed signs/symptoms endophthalmitis, RT/RD; patient to call immediately if any worsening vision, pain, redness, flashes/floaters/curtains. - Okay to resume all activities, except refrain from swimming for one more week. Okay to discontinue Pena shield at night. - RTC 1 month for DFEx, MRx Assessment & Plan (01/03/2023 6:06 AM CDT): POD #1 s/p CE/PCIOL OS - Doing well - Prednisolone QID OS - Ofloxacin QID OS - Reviewed signs/symptoms endophthalmitis, RT/RD; patient to call immediately if any worsening vision, pain, redness, flashes/floaters/curtains - No lifting/bending/swimming. Pena shield while sleeping, protective eyewear during day. 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 History of gastritis/esophagitis which may be driving. Has autonomic dysfunction/neuropathy; would consider possibility of dysmotility; no specific imaging to address that question in chart though on review of latest CT scans no gastric dilation -anti-emetics -GI eval as above -BID PPI therapy Assessment & Plan (05/31/2021 11:31 AM CDT): Intractable n/v x 4d, no clear precipitant by history. History of gastritis/esophagitis which may be driving. Has autonomic dysfunction/neuropathy; would consider possibility of dysmotility; no specific imaging to address that question in chart though on review of latest CT scans no gastric dilation -anti-emetics, fluids while NPO for procedure -GI eval as above -BID PPI therapy Assessment & Plan (05/30/2021 2:31 PM CDT): Intractable n/v x 4d, no clear precipitant by history. History of gastritis/esophagitis which may be driving Has autonomic dysfunction/neuropathy; would consider possibility of dysmotility; no specific imaging to address that question in chart though on review of latest CT scans no gastric dilation Plan antiemetics, fluids GI eval as above with potential for endoscopy BID PPI therapy Assessment & Plan (05/29/2021 8:56 PM CDT): P/w intractable n/v for 4 days. H/o gastritis/esophagitis in the past, which is most likely etiology, although possibly some component of gastroparesis (he is f/b [facility] neuro for diabetic polyneuropathy and autonomic dysfunction in s/o uncontrolled DM). Last EGD 05/202020 grade D esophagitis, gastritis, duodenitis, with negative H. Pylori stool Ag. He is a current smoker but denies MJ, alcohol, or NSAID use. - PPI BID (unclear if pt still taking this at home) - compazine, zofran, consider reglan - CLD for now, advance diet as tolerated - patient overdue for repeat EGD - could consider as outpatient if otherwise stable - check stool H. Pylori Ag Closed nondisplaced fracture of styloid process of left radius 12/30/2020 Benign prostatic hyperplasia with urinary freque ncy 09/07/2020 Hypokalemia 09/07/2020 Hypertrophic obstructive cardiomyopathy (HOCM) ( [facility]) 09/07/2020 History of hypertension 09/07/2020 DM (diabetes mellitus), type 2 with complication s ([facility]) 07/17/2020 Assessment & Plan (09/20/2022 4:44 PM TRANSFER AGENT): - No DR/DME on DFEx today - Continue good BP/BG control - Annual DFEx Assessment & Plan (07/07/2022 2:09 PM TRANSFER AGENT): No diabetic ophthalmic changes noted right eye (OD) or left eye (OS). Educated on findings, stressed importance of close blood sugar control and monitoring. Monitor. Assessment & Plan (06/01/2021 10:19 AM CDT): H/o poorly controlled DM2 c/b neuropathy and reportedly autonomic dysfunction. A1c 9.1. Treated as DKA (though the ketosis or some component of it may have been from starvation/intolerance to PO) on intake, gap normalized and off SQUID protocol - lantus 20U BID + 5U lispro + SSI -Continue effexor and gabapentin for neuropathy Assessment & Plan (05/31/2021 11:32 AM CDT): H/o poorly controlled DM2 c/b neuropathy and reportedly autonomic dysfunction. A1c 9.1. Treated as DKA (though the ketosis or some component of it may have been from starvation/intolerance to PO) on intake, gap normalized and off SQUID protocol - lantus 20U BID + 5U lispro + SSI -Continue effexor and gabapentin for neuropathy Assessment & Plan (05/30/2021 2:27 PM CDT): H/o poorly controlled DM2 c/b neuropathy and reportedly autonomic dysfunction. A1c 9.1 Treated as DKA (though the ketosis or some component of it may have been from starvation/intolerance to PO) on intake, gap normalized and off SQUID protocol Presently on basal/bolus with SSI coverage Plan adjust insulin therapy as PO intake improves Continue effexor and gabapentin for neuropathy Assessment & Plan (05/29/2021 8:57 PM CDT): H/o poorly controlled DM2 c/b neuropathy and reportedly autonomic dysfunction. On admission, complicated by DKA with BG 359 and ketones 0.9 w/ AG 20, given total 20u lispro in the ED w/ resolution of anion gap. - Last A1c 8.9% 03/29/21 per Radha, f/b [facility] endo, on lantus 55u bid per last note (pt states still taking 45u bid) and lispro 10-20u tidac depending on meal size. - here: s/p SQUID protocol, started lantus 20u bid + lispro 5u tidac + SSI, increase as po intake increases - add on A1c pending - continue effexor and gabapentin for neuropathy Assessment & Plan (10/20/2020 5:42 PM CDT): - With NPDR per recent note from Dr. Montejo's DFEx - Patient was not dilated today, per his preference - No DME on macular OCT today - Continue to optimize BG/BP control - Annual DFEx, due in ~[address] Montejo Assessment & Plan (09/17/2020 1:36 PM TRANSFER AGENT): Described today's findings and encouraged pt to step up his efforts to control his blood sugar. Assessment & Plan (07/19/2020 11:33 AM TRANSFER AGENT): Per endocrine 06/30, patient should be on lantus 45U BID & lispro 10-20U TID with meals. However, patient is only taking lantus 35U BID. Hyperglycemic up to 400s on arrival. S/p lispro 8U in ED. - Lantus 36U BID, SSI Assessment & Plan (07/17/2020 10:12 PM TRANSFER AGENT): Per endocrine 06/30, patient should be on lantus 45U BID & lispro 10-20U TID with meals. However, patient is only taking lantus 35U BID. Hyperglycemic up to 400s on arrival. S/p lispro 8U in ED. - Lantus 36U BID, SSI - NPO for now Acute kidney injury superimp osed on chronic kidney disease (CMS/HCC) 07/17/2020 Assessment & Plan (06/01/2021 10:20 AM CDT): Baseline 1.6-1.9 more recently. Nonoliguric presumed prerenal insult with Cr 2.6 on presentation. Now back to baseline 1.81 -follow up with PCP Assessment & Plan (05/30/2021 2:28 PM CDT): Baseline 1.6-1.9 more recently Nonoliguric presumed prerenal insult with Cr 2.6 on presentation, potential for ATN IV fluid Repeat BMP Meds checked and appropriate for GFR Assessment & Plan (05/29/2021 9:04 PM CDT): On admission, Cr 2.6 (baseline ~1.6 previously, more recently ~1.9 per review of CareEverywhere). Likely pre-renal 2/2 dehydration from n/v and poor po. - s/p 2L IVF in ED - continue mIVF while awaiting PO intake to improve - avoid nephrotoxins, renally dose meds Assessment & Plan (07/19/2020 11:33 AM TRANSFER AGENT): Cr at baseline. - CTM Assessment & Plan (07/17/2020 10:13 PM TRANSFER AGENT): Cr at baseline. - CTM Compensated HCV cirrhosis (CMS/HCC) 07/17/2020 Assessment & Plan (06/01/2021 10:19 AM CDT): S/p treatment with Mavyret 2019 with SVR, f/b [facility]ology. No history of ascites, HE, varices. -No concerns for decompensation currently -started CTX for 5 days of SBP antibx per GI recs (day 3/5) Assessment & Plan (05/31/2021 11:34 AM CDT): S/p treatment with Mavyret 2020 with SVR, f/b [facility]. No history of ascites, HE, varices. -No concerns for decompensation currently -started CTX for 5 days of SBP antibx per GI recs (day 2/5) Assessment & Plan (05/30/2021 2:29 PM CDT): S/p treatment with Mavyret 2020 with SVR, f/b [facility]. No history of ascites, HE, varices. No concerns for decompensation currently Assessment & Plan (05/29/2021 8:54 PM CDT): S/p treatment with Mavyret 2020 with SVR, f/b [facility]. No history of ascites, HE, varices. No concerns for decompensation currently. Assessment & Plan (07/19/2020 11:33 AM TRANSFER AGENT): S/p treatment. Compensated. - f/u outpt Assessment & Plan (07/17/2020 10:13 PM TRANSFER AGENT): S/p treatment. Compensated. - f/u outpt HTN (hypertension) 07/17/2020 Assessment & Plan (07/19/2020 11:33 AM TRANSFER AGENT): Previously on metop, reported this was d/c'ed due to low BP. Assessment & Plan (07/18/2020 3:20 PM TRANSFER AGENT): Previously on metop, reported this was d/c'ed due to low BP. Impotence due to erectile dysfunction 07/08/2020 possible UGIB 06/18/2020 Overview (06/20/2020): Added automatically from request for surgery [id number] Assessment & Plan (06/01/2021 10:19 AM CDT): Possible UGIB based on coffee grounds description (not seen here) and decrement in Hgb. Due for EGD to document healing from prior gastritis -GI following, no acute bleed noted on scope -Hgb remained stable overnight -IV PPI BID Assessment & Plan (05/31/2021 11:30 AM CDT): Possible UGIB based on coffee grounds description (not seen here) and decrement in Hgb. Due for EGD to document healing from prior gastritis -GI following, going for EGD today -Serial CBC, transfusion support if needed -IV PPI BID -h pylori still pending send Assessment & Plan (05/30/2021 2:30 PM CDT): Possible UGIB based on coffee grounds description (not seen here) and decrement in Hgb Evidently was due for EGD to document healing from prior gastritis Doubt variceal GI consultation regarding utility/timing of endoscopy Serial CBC, transfusion support if needed IV PPI BID Check h pylori Ag Rocephin sbp prophylaxis d#1 Assessment & Plan (07/19/2020 11:32 AM TRANSFER AGENT): With coffee-ground emesis. No melena/hematochezia. Likely 2/2 esophagitis/gastritis in setting of NSAID use and smoking. 06/21 EGD: LA Grade D esophagitis, erythematous mucosa in antrum, erythematous duodenopathy. - IV PPI BID, sucralfate, PRN GI cocktail - Stool H.pylori - trend CBC, consented for blood - NO NSAIDs - was npo; started on cld. - endoscopy note indicated f/u scope in 3mo from 06/21, possibly at [facility], since that is where he gets his care for hepatitis. - No active bleeding. Hb stable. Vitals stable. Plan DC today. Assessment & Plan (07/18/2020 3:26 PM TRANSFER AGENT): With coffee-ground emesis. No melena/hematochezia. Likely 2/2 esophagitis/gastritis in setting of NSAID use and smoking. 06/21 EGD: LA Grade D esophagitis, erythematous mucosa in antrum, erythematous duodenopathy. - IV PPI BID, sucralfate, PRN GI cocktail - Stool H.pylori - trend CBC, consented for blood - NO NSAIDs - was npo; started on cld. - if h/h remains stable, possible discharge tomorrow - no nsaids or smoking. - endoscopy note indicated f/u scope in 3mo from 06/21, possibly at [facility], since that is where he gets his care for hepatitis LAURYN (acute kidney injury) 01/26/2019 Hyperbilirubinemia 12/30/2018 Sensorineural hearing loss, asymmetrical 019 Colon polyp 02/20/2013 Arthralgia of shoulder 09/13/2012 Vitamin D deficiency 03/27/2011 Resolved Problems Problem Noted Date Diagnosed Date Resolved Date Mixed type age-related cataract, right eye 09/17/2020 02/14/2023 Assessment & Plan (01/30/2023 5:48 PM CDT): - Scheduled for 02/13/23 Assessment & Plan (01/16/2023 5:31 PM CDT): - Visually significant and patient desires CEIOL OS. - Reviewed R/B/A of CEIOL, including but not limited to infection, bleeding, persistent inflammation, diplopia, ptosis, macular edema, need for further surgeries or procedures, need for spectacle correction after surgery, possible loss of vision, possible loss of the eye, and risks of anesthesia. - The patient understands these risks and wishes to proceed. - Target refraction was discussed with the patient. We discussed near, distance, and monovision; we also discussed multifocal and toric lenses. The patient elected to target plano. - Scheduled for 02/13/23 Assessment & Plan (09/20/2022 4:44 PM TRANSFER AGENT): - Visually significant and patient wishes to proceed with CEIOL [facility], OS first followed by OD 1 month later - See separate A/P in this note Assessment & Plan (07/07/2022 2:10 PM TRANSFER AGENT): Moderate cataract development consistent with symptoms. Patient is ready for cataract extraction (CE)/PCIOL. Discussed briefly and recommended next available cataract eval Assessment & Plan (10/20/2020 5:44 PM CDT): - Although cataracts appear moderate at the slit lamp (with cortical spokes in the visual axis), the patient is asymptomatic and overall happy with his current vision. He denies any difficulty with ADLs at this time. - Patient will call back if he changes his mind about surgery; but will continue to monitor for now. - Offered refraction for prescription glasses, but he declines and wishes to continue with OTC readers. Assessment & Plan (09/17/2020 1:34 PM TRANSFER AGENT): Impacting quality of life, pt would like to proceed with assessment and scheduling for extraction. COVID-19 07/17/2020 05/29/2021 Assessment & Plan (07/19/2020 11:33 AM TRANSFER AGENT): - He presented with no symptoms. Vital signs on admission stable. A CXR obtained on admission was clear. - COVID-19 RNA PCR was sent on 07/17/20. The patient's testing for COVID-19 is POSITIVE. The patient does not have evidence of viral pneumonia. Remain on isolation until 07/27. - Clinical complications of COVID-19 include: N/A. - Labs are pertinent for negative trop. - The patient currently does not require supplemental oxygen. Closely monitor continuous pulse oximetry for evidence of decompensation. - Prior and active treatments: N/A. - Continue supportive care with antitussives and antipyretics as needed. COVID- 19 droplet and contact precautions per hospital protocol. Assessment & Plan (07/17/2020 10:11 PM TRANSFER AGENT): - He presented with no symptoms. Vital signs on admission stable. A CXR obtained on admission was clear. - COVID-19 RNA PCR was sent on 07/17/20. The patient's testing for COVID-19 is POSITIVE. The patient does not have evidence of viral pneumonia. - Clinical complications of COVID-19 include: N/A. - Labs are pertinent for negative trop. - The patient currently does not require supplemental oxygen. Closely monitor continuous pulse oximetry for evidence of decompensation. - Prior and active treatments: N/A. - Continue supportive care with antitussives and antipyretics as needed. COVID- 19 droplet and contact precautions per hospital protocol. Immunizations Name Administration Dates Next Due Influenza, Quad, Adjuvantate d, Intramuscular 07/06/2022 Influenza, Quadrivalent, Hig h Dose, Preservative Free, Intrr 06/18/2020 Influenza, Quadrivalent, Spl it, Preservative Free, Intramuscular 06/20/2019 Influenza, Trivalent, IM (MDV) 6,06/22/2014,07/03/2011,06/13 Influenza, Trivalent, Preser vative Free, Intramuscular 09/19/2018,07/01/2012 Influenza, Unspecified 05/28/2021,06/22/2014 Pneumococcal Conjugate Pcv20 03/15/2022 Pneumococcal Polysaccharide PPV23 06/22/2014,09/2011,08/31/2005 Social History Tobacco Use Types Packs/Day Years Used Date Smoking Tobacco: Every Day Cigarettes 1.5 53.1 Started: 1971 Passive Smoke Exposure: Never Smokeless Tobacco: Never Alcohol Use Standard Drinks/Week Comments No 0 (1 standard drink = 0.6 oz pur e alcohol) AUDIT-C Answer Date Recorded Q1: How often do you have a drink containing alcohol? Never 01/02/2023 Q2: How many drinks containi ng alcohol do you have on a typical day when you are drinking? Patient does not drink Q3: How often do you have si x or more drinks on one occasion? Never 01/02/2023 Personal Safety Answer Date Recorded Have you ever been in or are you currently in a harmful physical or emotional relationship or is someone making you feel afraid or unsafe? Denies 02/13/2023 Sex and Gender Information Value Date Recorded Sex Assigned at Not on file Legal Sex Male 4:10 AM TRANSFER AGENT Gender Identity Not on file Sexual Orientation Not on file Last Filed Vital Signs Vital Sign Reading Time Taken Comments Blood Pressure 171/89 02/13/2023 2:50 PM CDT Pulse 68 02/13/2023 2:50 PM CDT Temperature 36 C (96.8 F) 02/13/2023 12:52 PM CDT Respiratory Rate 13 02/13/2023 2:50 PM CDT Oxygen Saturation 98% 02/13/2023 2:50 PM CDT Inhaled Oxygen Concentration - - Weight 90.7 kg (200 lb) 01/19/2023 1:15 PM CDT Height 182.9 cm (6') 01/19/2023 1:15 PM CDT Body Mass Index 27.12 01/19/2023 1:15 PM CDT Plan of Treatment Not on file Medical Devices Implanted Type Area Tenant Coordinator Device Identifier Shelf Expiration Date Model / Serial / Lot [employer] Lens Tecnis Eyhance Iol [id number] - [id number] - [id number] Implanted:Qty : 1 on 01/02/2023 by Palak Perez MD PhD at [facility] Left: Eye [employer] [id number] 01/10/2024 [id number] / [id number] / [employer] Lens [employer]ecnis Eyhance Iol [id number] - [id number] - [id number] Implanted:Qty : 1 on 02/13/2023 by Palak Perez MD PhD at [facility] Right: Eye [employer] [id number] 11/29/2025 [id number] / [id number] / Penile Prostesis Implant N/A: Penis Procedures Procedure Name Priority Date/Time Associated Diagnosis Comments EGFR Routine 06/01/2021 5:31 AM CDT LIPID PANEL Routine 05/30/2021 5:06 AM CDT HEMOGLOBIN A1C Routine 05/29/2021 1:[address] ABDOMEN PELVIS WO CONTRAST ED 06/18/2020 9:42 AM TRANSFER AGENT from Last 3 Months or Most Recently Relevant to Health Maintenance Results * (ABNORMAL) eGFR (06/01/2021 5:31 AM CDT) Pathologist [facility] [place] eGFR 38(L) 90 - 130 mL/min/1.7 3 m2 [facility] Comment: Interpretive Data Reference Interval Normal >/= 90 mL/min/1.73m2 Mildly decreased* 60 - 89 mL/min/1.73m2 Mildly to moderately decreased 45 - 59 mL/min/1.73m2 Moderately to severely decreased 30 - 44 mL/min/1.73m2 Severely decreased 15 - 29 mL/min/1.73m2 Kidney Failure < 15 mL/min/1.73m2 *Relative to young adult level Estimated glomerular filtration rate is determined by the CKD-EPI equation recommended by the National Kidney Foundation (KDIGO 2012 Clinical Practice Guideline for the Evaluation and Management of Chronic Kidney Disease. Kidney Intnl Suppl Jul 2012;3:1). The CKD-EPI equation should not be used for patients with unstable renal function and has not been validated in children and those over 70. Current interpretive data was last reviewed 2020 Blood 06/01/2021 5:31 AM CDT 06/01/2021 5:37 AM CDT us Bharti Tabares MD LAB BLOOD ORDERABLES Final Res ult [facility] One [facility] Department [place] [address] * Lipid panel (05/30/2021 5:06 AM CDT) Cholesterol 160 30 - 199 mg/dL [facility] Comment: Interpretive Data Ages < or = 19 years Acceptable: <170 mg/dL Borderline high: 170-199 mg/dL High: >or= 200 mg/dL Ages > or = 20 years Desirable: <200 mg/dL Borderline high: 200-239 mg/dL High: >or= 240 mg/dL Literature References: 1. Expert Panel on Integrated Guidelines for Cardiovascular Health and Risk Reduction in Children and Adolescents. Pediatrics 2011;128:S213 2. NCEP Expert Panel. Circulation 2004;110:227 Current Interpretive Data was last revised on 2018. Triglycerides 76 <=149 mg/dL [facility] Comment: Interpretive Data Ages < or = 9 years Acceptable: <75 mg/dL Borderline high: 75-99 mg/dL High: >or= 100 mg/dL Ages 10 to 20 years Acceptable: <90 mg/dL Borderline high: 90-129 mg/dL High: >or= 130 mg/dL Ages > or = 20 years Desirable: <150 mg/dL Borderline high: 150-199 mg/dL High: 200-499 mg/dL Very high: >or= 499 mg/dL Literature References: 1. Expert Panel on Integrated Guidelines for Cardiovascular Health and Risk Reduction in Children and Adolescents. Pediatrics 2011;128:S213 2. NCEP Expert Panel. Circulation 2004;110:227 Current Interpretive Data was last revised on 2018. HDL 45 >=40 mg/dL [facility] Comment: Interpretive Data Ages < or = 19 years Acceptable: >45 mg/dL Borderline low: 40-45 mg/dL Low: <40 mg/dL Ages > or = 20 years Desirable: >or= 60 mg/dL Low: <40 mg/dL Literature References: 1. Expert Panel on Integrated Guidelines for Cardiovascular Health and Risk Reduction in Children and Adolescents. Pediatrics 2011;128:S213 2. NCEP Expert Panel. Circulation 2004;110:227 Current Interpretive Data was last revised on 2018. LDL, calculated 100 <=129 mg/dL [facility] Comment: Interpretive Data Ages < or = 19 years Acceptable: <110 mg/dL Borderline high: 110-129 mg/dL High: >or= 130 mg/dL Ages > or = 20 years Optimal: <100 mg/dL Near optimal: 100-129 mg/dL Borderline high: 130-159 mg/dL High: >160 mg/dL Literature References: 1. Expert Panel on Integrated Guidelines for Cardiovascular Health and Risk Reduction in Children and Adolescents. Pediatrics 2011;128:S213 2. NCEP Expert Panel. Circulation 2004;110:227 Current Interpretive Data was last revised on 2018. Non-HDL Cholesterol 115 mg/dL [facility] Comment: Interpretive Data Ages < or = 19 years Acceptable: <120 mg/dL Borderline high: 120-144 mg/dL High: >145 mg/dL Ages > or = 20 years When triglycerides are >200 mg/dL, Non-HDL cholesterol is a secondary target of therapy with treatment goals that are 30 mg/dL greater than the LDL cholesterol target. Literature References: 1. Expert Panel on Integrated Guidelines for Cardiovascular Health and Risk Reduction in Children and Adolescents. Pediatrics 2011;128:S213 2. NCEP Expert Panel. Circulation 2004;110:227 Current Interpretive Data was last revised on 2018. Chol/HDL ratio 4 [facility] Blood 05/30/2021 5:06 AM CDT 05/30/2021 5:16 AM CDT Alexey Flores MD LAB BLOOD ORDERABLES Fi nal Result Performing Organization Address [facility] de Phone Number [facility] Department [place] [address] * (ABNORMAL) Hemoglobin A1c (05/29/2021 1:34 PM CDT) Hgb A1C 9.3(H) 4.0 - 5.6 % [facility] Estimated Average Glucose 220 mg/dL [facility] Comment: The ADA recommends reporting an estimated Average Glucose (eAG) with all Hemoglobin A1c results using the equation derived from a study of 507 normal and diabetic adults. Minority populations were underrepresented and children were not included. (Diabetes Care 2020; 43(S1): S66-S76). The eAG is not equivalent to a fasting glucose. Blood 05/29/2021 1:34 PM CDT 05/29/2021 2:02 PM CDT Walker Gotti MD LAB BLOOD ORDERABLES F inal Result Performing Organization Address [facility] de Phone Number [facility] Department [place] [address] * CT Abdomen Pelvis WO Contrast (06/18/2020 9:42 AM TRANSFER AGENT) Anatomical Region Laterality Modality Body N/A Computed Tomogra phy 06/18/2020 10:1 6 AM TRANSFER AGENT Impressions 06/18/2020 10:26 AM TRANSFER AGENT 1. No acute CT findings to explain patient's abdominal pain. Dictated by: Susie Salgado M.D. The radiology attending physician has personally reviewed this study, and had reviewed and/or edited this written report and agrees with it. Electronically signed by: Clara Villa M.D. Narrative 06/18/2020 10:26 AM TRANSFER AGENT EXAMINATION: Computed tomography of the abdomen and pelvis without intravenous contrast HISTORY: Abdominal pain with history of HCV cirrhosis TECHNIQUE: Transaxial computed tomographic images of the abdomen and pelvis were obtained without intravenous contrast according to the standard protocol. COMPARISON: 06/02/2016 FINDINGS: Limited evaluation the lung bases reveals some mild dependent atelectasis. Heart size is normal without pericardial effusion. There is a hiatal hernia. There is mild hepatic surface nodularity and periportal widening in keeping with patient's history of cirrhosis. The gallbladder, pancreas, spleen, adrenal glands are normal. There are multiple cysts within the right kidney. There is no evidence of bowel obstruction. The appendix is seen and is normal. There is no evidence of diverticulitis. There are calcifications within an enlarged prostate. The urinary bladder is distended. There is no retroperitoneal, mesenteric, or pelvic lymphadenopathy. There is mild atherosclerotic calcification of the aorta. There is bilateral hip osteoarthritis. Degenerative changes are seen throughout the spine. No suspicious osseous lesions or fractures. Procedure Note Clara Villa MD - 06/18/2020 EXAMINATION: Computed tomography of the abdomen and pelvis without intravenous contrast HISTORY: Abdominal pain with history of HCV cirrhosis TECHNIQUE: Transaxial computed tomographic images of the abdomen and pelvis were obtained without intravenous contrast according to the standard protocol. COMPARISON: 06/02/2016 FINDINGS: Limited evaluation the lung bases reveals some mild dependent atelectasis. Heart size is normal without pericardial effusion. There is a hiatal hernia. There is mild hepatic surface nodularity and periportal widening in keeping with patient's history of cirrhosis. The gallbladder, pancreas, spleen, adrenal glands are normal. There are multiple cysts within the right kidney. There is no evidence of bowel obstruction. The appendix is seen and is normal. There is no evidence of diverticulitis. There are calcifications within an enlarged prostate. The urinary bladder is distended. There is no retroperitoneal, mesenteric, or pelvic lymphadenopathy. There is mild atherosclerotic calcification of the aorta. There is bilateral hip osteoarthritis. Degenerative changes are seen throughout the spine. No suspicious osseous lesions or fractures. IMPRESSION: 1. No acute CT findings to explain patient's abdominal pain. Dictated by: Susie Salgado M.D. The radiology attending physician has personally reviewed this study, and had reviewed and/or edited this written report and agrees with it. Electronically signed by: Clara Villa M.D. Dayton Marie MD IMG CT PROCEDURES Final Resu lt from Last 3 Months or Most Recently Relevant to Health Maintenance [place] [address] [place] [address] MEDICARE COMMUNITY PLAN [facility] MEDICARE COMMUNITY PLAN Member Subscriber Plan / Payer (Ef fective 2019-Present) Name:Jonathon Christopher Relation to Subscriber:Self Name:Jonathon Christopher Payer ID:[id number] (NAIC) Group ID:[id number] Type:UHC MEDICARE Address: [place] [id number] [facility] MEDICARE COMMUNITY PLAN [facility] MEDICARE Address: [address] [address] Advance Directives For more information, please contact: [phone] * Full Code (Latest Code Status on File) Date Activated Date Inactivated Comments 05/29/2021 10:45 PM 06/01/2021 3:27 PM * Full Code Date Activated Date Inactivated Comments 07/17/2020 10:27 PM 07/19/2020 7:38 PM * Full Code Date Activated Date Inactivated Comments 06/18/2020 2:01 PM 06/22/2020 4:10 PM Care Teams Optical Laboratory Manager Relationship Specialty Start Date End Date Maricruz Ramirez MD [address] [address] PCP - General Internal Medicine 10/20/21
--- OUTSIDE RECORDS SUMMARY | 2024-09-06 14:35 | XMS_ITS ---
Author Organization [facility] Address [address] [place] [address] Care Team Providers Care Laboratory Technical Specialist Name Role Phone Darell Haji MD Unavailable [phone] Maricruz Ramirez MD Primary Care Provider [phone] Susan Hurley APRN-GRAPHIC EDITOR Unavailable [phone] Loc Su MD Unavailable [phone] Maricruz Ramirez MD Unavailable [phone] Palak Ace Unavailable [phone] QMM & AWV - [facility]ibrance Status:Identified (Enrolling) Start date:09/01/2024 Enrollment reason:Identified using claims or encounter data Case Team Name Relationship Phone Palak Ace Care Coordination Special ist(Responsible Staff) [phone] Continued Care and Services Coordination
--- OUTSIDE RECORDS SUMMARY | 2024-09-06 14:35 | XMS_ITS | Clinical Summary ---
Author Organization [facility] Address [address] [place] [address] Care Team Providers Care Gsa Coordinator Name Role Phone Maricruz Ramirez MD Primary [...] 05/31/2021 Overview (09/20/2022): Found on [facility] Nausea & vomiting 05/29/2021 Assessment [...] Hypokalemia 09/07/2020 Hypertrophic obstructive cardiomyopathy (HOCM) ( [facility]) 09/07/2020 History of hypertension 09/07/2020 DM (diabetes mellitus), type 2 with complication s ([facility]) 07/17/2020 Assessment & Plan (09/20/2022 4:44 PM PIPE TURNER): - No DR/DME on DFEx today - Continue good BP/BG control - Annual DFEx Assessment & Plan (07/07/2022 2:09 PM PIPE TURNER): No diabetic ophthalmic changes noted right eye [...] [place] Assessment & Plan (09/17/2020 1:36 PM PIPE TURNER): Described today's findings and encouraged pt to step up his efforts to control his blood sugar. Assessment & Plan (07/19/2020 11:33 AM PIPE TURNER): Per endocrine 06/30, patient should be on lantus 45U BID & lispro 10-20U TID with meals. However, patient is only taking lantus 35U BID. Hyperglycemic up to 400s on arrival. S/p lispro 8U in ED. - Lantus 36U BID, SSI Assessment & Plan (07/17/2020 10:12 PM PIPE TURNER): Per endocrine 06/30, patient should be on [...] meds Assessment & Plan (07/19/2020 11:33 AM PIPE TURNER): Cr at baseline. - CTM Assessment & Plan (07/17/2020 10:13 PM PIPE TURNER): Cr at baseline. - CTM Compensated HCV [...] currently. Assessment & Plan (07/19/2020 11:33 AM PIPE TURNER): S/p treatment. Compensated. - f/u outpt Assessment & Plan (07/17/2020 10:13 PM PIPE TURNER): S/p treatment. Compensated. - f/u outpt HTN (hypertension) 07/17/2020 Assessment & Plan (07/19/2020 11:33 AM PIPE TURNER): Previously on metop, reported this was d/c'ed due to low BP. Assessment & Plan (07/18/2020 3:20 PM PIPE TURNER): Previously on metop, reported this was d/c'ed due to low BP. Impotence due to erectile dysfunction 07/08/2020 possible UGIB 06/18/2020 Overview (06/20/2020): Added automatically from request for surgery [id number] Assessment & Plan (06/01/2021 10:19 AM CDT): [...] d#1 Assessment & Plan (07/19/2020 11:32 AM PIPE TURNER): With coffee-ground emesis. No melena/hematochezia. Likely 2/2 [...] today. Assessment & Plan (07/18/2020 3:26 PM PIPE TURNER): With coffee-ground emesis. No melena/hematochezia. Likely 2/2 [...] 02/13/23 Assessment & Plan (09/20/2022 4:44 PM PIPE TURNER): - Visually significant and patient wishes to proceed with CEIOL OU, OS first followed by OD 1 month later - See separate A/P in this note Assessment & Plan (07/07/2022 2:10 PM PIPE TURNER): Moderate cataract development consistent with symptoms. Patient [...] readers. Assessment & Plan (09/17/2020 1:34 PM PIPE TURNER): Impacting quality of life, pt would like to proceed with assessment and scheduling for extraction. COVID-19 07/17/2020 05/29/2021 Assessment & Plan (07/19/2020 11:33 AM PIPE TURNER): - He presented with no symptoms. Vital [...] protocol. Assessment & Plan (07/17/2020 10:11 PM PIPE TURNER): - He presented with no symptoms. Vital [...] Conjugate Pcv20 03/15/2022 Pneumococcal Polysaccharide PPV23 06/22/2014,09/2011,08/31/2005 Surgical History Surgery Date Site/Laterality Comments CHOLECYSTECTOMY 10/28/2022 - 11/26/2022 COLONOSCOPY 07/30/2021 - 07/29/2022 ESOPHAGOGASTRODUODENOSCOPY several- last one 04/2022 CIRCUMCISION 04/29/2022 - 05/29/2022 PENILE PROSTHESIS IMPLANT 06/29/2020 - 07/29/2020 Medical History Medical History Date Comments Diabetes mellitus (HCC) TYPE 2, CGM FREESTYLE JOSE J Hypertension Cataract Family History Medical History Relation Name Comments Stroke Paternal Grandfather Stroke Paternal Grandmother Anesthesia problems Neg Hx Fuchs' dystrophy Neg Hx Glaucoma Neg Hx Macular degeneration Neg Hx Retinal detachment Neg Hx Strabismus Neg Hx Relation Name Status Comments Paternal Grandfather Paternal Grandmother Social History Tobacco Use Types Packs/Day Years [...] on file Legal Sex Male 4:10 AM PIPE TURNER Gender Identity Not on file Sexual Orientation Not on file Obstetrics History Last Filed Vital Signs Vital Sign Reading [...] 01/19/2023 1:15 PM CDT Plan of Treatment Health Maintenance Due Date Last Done Comments Albumin Creatinine Ratio, Urine 1954 Colon Cancer Screening-Colonoscopy 1954 Depression Screening 1954 Prostate Cancer Screening-PSA 1954 Foot Exam 1954 DTaP/Tdap/Td Vaccine (1 - Tdap) 1965 Hepatitis B Screening 1972 Lung Cancer Screening 2004 Zoster Vaccine (1 of 2) 2004 Well Visit 65+ 2019 Hemoglobin A1C 11/26/2021 05/29/2021, 1007/2020, 06/18/2020 eGFR 06/01/2022 06/01/2021, 110 08/2020, 05/30/2021, Additional history exists Lipid Panel 04/14/2023 04/14/2022, 11/0 07/2020, 05/17/2021, Additional history exists Fall Risk Assessment 01/03/2024 01/02/2023 Dilated Eye Exam 03/20/2024 03/20/2023, 11/2022, 09/20/2022, Additional history exists Covid-19 Vaccine ( - 2023-2 5 season) 2024 07/06/2022, 11/19/2020, 10/23/2020 Influenza Vaccine (#1) 2024 2, 05/28/2021, 06/18/2020, Additional history exists Abdominal Aortic Aneurysm (A AA) Screen Completed 06/18/2020, 06/02/2016, 06/21/2014 Hepatitis C Screening Completed 07/17/2020 , 07/28/2014, 07/25/2014, Additional history exists Pneumococcal vaccine 65+ Completed 022, 06/22/2014, 07/01/2012, Additional history exists Medical Devices Implanted Type Area Felt Cementer Device Identifier Shelf Expiration Date Model / Serial / Lot [employer] Lens Tecnis Eyhance Iol [id number] - [id number] - [id number] Implanted:Qty : 1 on 01/02/2023 by Palak Perez MD PhD at [facility] Lens Left: Eye [employer] [id number] 01/10/2024 [id number] / [id number] / [employer] Lens Tecnis Eyhance Iol [id number] - [id number] - [id number] Implanted:Qty : 1 on 02/13/2023 by Palak Perez MD PhD at [facility] Lens Right: Eye [employer] [id number] 11/29/2025 [id number] / [id number] / Penile Prostesis Implant N/A: Penis Procedures Procedure Name Priority Date/Time Associated Diagnosis Comments EGFR Routine 06/01/2021 5:31 AM CDT LIPID PANEL Routine 05/30/2021 5:06 AM CDT HEMOGLOBIN A1C Routine 05/29/2021 1:[address] ABDOMEN PELVIS WO CONTRAST ED 06/18/2020 9:42 AM PIPE TURNER from Last 3 Months or Most Recently Relevant to Health Maintenance Results * (ABNORMAL) eGFR (06/01/2021 5:31 AM CDT) eGFR 38(L) 90 - 130 mL/min/1.7 3 m2 [facility] Comment: Interpretive Data Reference Interval Normal [...] MD LAB BLOOD ORDERABLES Final Res ult [facility] One [facility] Department [place] [address] * Lipid panel (05/30/2021 5:06 AM CDT) Cholesterol 160 30 - 199 mg/dL [facility] Comment: Interpretive Data Ages < or = [...] revised on 2018. HDL 45 >=40 mg/dL [facility] Comment: Interpretive Data Ages [...] on 2018. LDL, calculated 100 <=129 mg/dL [facility] Comment: Interpretive Data Ages [...] revised on 2018. Non-HDL Cholesterol 115 mg/dL [facility] Comment: Interpretive Data Ages [...] last revised on 2018. Chol/HDL ratio 4 [facility] Blood 05/30/2021 5:06 AM CDT 05/30/2021 5:16 AM CDT Alexey Flores MD LAB BLOOD ORDERABLES Fi nal Result Performing Organization Address [facility] de Phone Number [facility] [place] [address] * (ABNORMAL) Hemoglobin A1c (05/29/2021 1:34 PM CDT) Hgb A1C 9.3(H) 4.0 - 5.6 % [facility] Estimated Average Glucose 220 mg/dL [facility] Comment: The ADA recommends reporting an estimated [...] ORDERABLES F inal Result Performing Organization Address [facility] de Phone Number [facility] [place] [address] * CT Abdomen Pelvis WO Contrast (06/18/2020 9:42 AM PIPE TURNER) Anatomical Region Laterality Modality Body N/A Computed Tomogra phy 06/18/2020 10:1 6 AM PIPE TURNER Impressions 06/18/2020 10:26 AM PIPE TURNER 1. No acute CT findings to explain patient's abdominal pain. Dictated by: Susie Salgado M.D. The radiology attending physician has personally reviewed this study, and had reviewed and/or edited this written report and agrees with it. Electronically signed by: Clara Villa M.D. Narrative 06/18/2020 10:26 AM PIPE TURNER EXAMINATION: Computed tomography of the abdomen and [...] explain patient's abdominal pain. Dictated by: Susie Saglado M.D. The radiology attending physician has personally reviewed this study, and had reviewed and/or edited this written report and agrees with it. Electronically signed by: Clara Villa M.D. Dayton Marie MD IMG CT PROCEDURES Final Resu lt from Last 3 Months or Most Recently Relevant to Health Maintenance Insurance [facility] MEDICARE [facility]ITY PL[facility] MEDICARE COMMUNITY PLAN UHC MEDICARE COMMUNITY PLAN Advance Directives For more information, please contact: [phone] * Full Code (Latest Code Status on File) Date Activated Date Inactivated Comments 05/29/2021 10:45 PM 06/01/2021 3:27 PM * Full Code Date Activated Date Inactivated Comments 07/17/2020 10:27 PM 07/19/2020 7:38 PM * Full Code Date Activated Date Inactivated Comments 06/18/2020 2:01 PM 06/22/2020 4:10 PM Care Teams Gsa Coordinator Relationship Specialty Start Date End Date Maricruz Ramirez MD [address] [address] PCP - General Internal Medicine 10/20/21
--- OUTSIDE RECORDS SUMMARY | 2024-09-06 14:35 | XMS_ITS ---
Author Organization [facility] Address [address] [facility] [address], [place] [address] Care Team Providers Care Flash Welder Name Role Phone Rodney KIRBY, Cortney Primary Care Provider Un available Jeff Sutton MD Unavailable [phone] Allergies Allergen (clinical drug ingredient) Drug/Non Drug Allergy documented on EMR Reaction Allergy Type Onset Date Status metformin Metformin HCl Unknown Drug Allergy Act ilya Medications Medication SIG (Take, Route, Frequency, Duration) Notes Start Date End Date Status Lantus 100 UNIT/ML as directed Subcutaneous Unknown Aspirin 81 MG 1 tablet Orally Once a day for 30 day(s) Unknown Mavyret 100-40 MG 3 tablets Orally Onc e a day for 10 day(s) Unknown Lisinopril 5 MG 1 tablet Orally Once a day for 30 day(s) 03/29/2022 Unknown Sildenafil Citrate 100 MG 1 tablet as ne eded Orally Once a day for 30 day(s) Unknown HumaLOG 100 UNIT/ML as directed Subcutaneous Unknown HYDROcodone-Acetaminophen 5-325 MG 1 tablet as needed Orally every 6 hrs Unknown hydrALAZINE HCl 50 MG 1 tablet with food Orally Twice a day Unknown Sucralfate 1 GM 1 tablet on an empty stomach Orally Twice a day Unknown Gabapentin 100 MG 1 capsule Orally Onc e a day for 30 day(s) Unknown Metoclopramide HCl 5 MG 1 tablet before meals Orally Twice a day for 30 day(s) Not-Taking Baclofen 10 MG 1/2 tablet as needed Orally Three times a day Unknown Pepcid 20 MG 1 tablet at bedtime as needed Orally Once a day for 30 day(s) Unknown Methocarbamol 750 MG 1 tablet Orally dex ry 4 hrs Not-Taking Eliquis 2.5 MG 1 tablet Orally Twic e a day Unknown Pantoprazole Sodium 40 MG 1 tablet Orall y Twice a day Active Potassium Chloride ER 20 MEQ 2 tablets with food Orally Twice a day Active Vitamin D (Ergocalciferol) 1.25 MG (42814 UT) 1 capsule Orally Weekly Acti ve Tamsulosin HCl 0.4 MG 1 capsule Orally O nce a day for 90 Active traMADol HCl 50 MG 1-2 tablets as neede d Orally every 6 hrs Active Losartan Potassium 25 MG 1 tablet Orally Once a day Active Metoprolol Succinate ER 50 MG 1 tablet Orally Daily at Bedtime Active Ondansetron HCl 4 MG 1 tablet Orally Onc e a day for 30 day(s) Active Insulin Lispro Activ e Ipratropium Cortez 0.03 % 2 sprays in each nostril Nasally Twice a day Active chlorproMAZINE HCl 25 MG 1 tablet Orally Three times a day Active Insulin Detemir Acti ve Insulin Glargine 100 UNIT/ML as directed Subcutaneous Active Folic Acid 1 MG 1 tablet Orally Once a day for 30 day(s) Active Farxiga 5 MG 1 tablet Orally Once a day Active Atorvastatin Calcium 80 MG 1 tablet Orally Once a day Active Social History Tobacco Use: Social History Observation Description Date Details (start date - stop date) Current Smoker NA - NA Tobacco Use/Smoking Question Answer Notes Are you a current smoker How often do you smoke cigarettes? every day How many cigarettes a day do you smoke? 11-20 How soon after you wake up do you smoke your fir st cigarette? 31-60 minutes Are you interested in quitting? Not ready to scott t Section Notes: Past history of drug abuse Encounters Encounter Location Date Provider Diagnosis [address] [place] [address] [place] [phone] 09/03/2024 Jeff Sutton Plan Of Treatment Next Appt Details Provider Name:Jeff lackey, 10/29/2024 12:30:00 PM, [address] [place] [address], [address], [place], [place], [id number], Progress Notes * Jonathon DODSON ADOB:1954 (69 yo M)Acc No.[id number]:09/03/2024 Progress Notes Patient: Jonathon HOLLAND Provider: Marianne Sutton MD :1955 A ge:69 Y S ex:Male Date:09/03/2024 Address:[id number] Pcp:Cortney Stevens MD Subjective: * Chief Complaints: * * Medical History: D M II, Hypertrophic obstructive cardiomyopathy, HTN, CKD III, Hep C - untreated, Severe Esophagitis. * Surgical History: P olyp removal . * Hospitalization/Major Diagno stic Procedure: S yncope and collapse, LAURYN on CKD and UTI 01/26-01/27. * Family History: N o Family History documented.. * Social History: T obacco Use: T obacco Use/Smoking A re you a c urrent smoker, H ow often do you smoke cigarettes? e very day, H ow many cigarettes a day do you smoke? 1 1-20, H ow soon after you wake up do you smoke your first cigarette? 3 1-60 minutes, A re you interested in quitting??Not ready to quit. P ast history of drug abuse. * Medications: T aking Atorvastatin Calcium 80 MG Tablet 1 tablet Orally Once a day , Taking chlorproMAZINE HCl 25 MG Tablet 1 tablet Orally Three times a day , Taking Folic Acid 1 MG Tablet 1 tablet Orally Once a day , Taking Farxiga 5 MG Tablet 1 tablet Orally Once a day , Taking Insulin Detemir , Taking Insulin Glargine 100 UNIT/ML Solution as directed Subcutaneous , Taking Insulin Lispro , Taking Ipratropium Cortez 0.03 % Solution 2 sprays in each nostril Nasally Twice a day , Taking Losartan Potassium 25 MG Tablet 1 tablet Orally Once a day , Taking Metoprolol Succinate ER 50 MG Tablet Extended Release 24 Hour 1 tablet Orally Daily at Bedtime , Taking Ondansetron HCl 4 MG Tablet 1 tablet Orally Once a day , Taking Pantoprazole Sodium 40 MG Tablet Delayed Release 1 tablet Orally Twice a day , Taking Potassium Chloride ER 20 MEQ Tablet Extended Release 2 tablets with food Orally Twice a day , Taking Tamsulosin HCl 0.4 MG Capsule 1 capsule Orally Once a day , Taking traMADol HCl 50 MG Tablet 1-2 tablets as needed Orally every 6 hrs , Taking Vitamin D (Ergocalciferol) 1.25 MG (41362 UT) Capsule 1 capsule Orally Weekly , Not-Taking/PRN Metoclopramide HCl 5 MG Tablet 1 tablet before meals Orally Twice a day , Not-Taking/PRN Methocarbamol 750 MG Tablet 1 tablet Orally every 4 hrs , Unknown Eliquis 2.5 MG Tablet 1 tablet Orally Twice a day , Unknown Baclofen 10 MG Tablet 1/2 tablet as needed Orally Three times a day , Unknown Pepcid 20 MG Tablet 1 tablet at bedtime as needed Orally Once a day , Unknown hydrALAZINE HCl 50 MG Tablet 1 tablet with food Orally Twice a day , Unknown Sucralfate 1 GM Tablet 1 tablet on an empty stomach Orally Twice a day , Unknown HumaLOG 100 UNIT/ML Solution as directed Subcutaneous , Unknown HYDROcodone-Acetaminophen 5-325 MG Tablet 1 tablet as needed Orally every 6 hrs , Unknown Gabapentin 100 MG Capsule 1 capsule Orally Once a day , Unknown Aspirin 81 MG Tablet Chewable 1 tablet Orally Once a day , Unknown Lantus 100 UNIT/ML Solution as directed Subcutaneous , Unknown Lisinopril 5 MG Tablet 1 tablet Orally Once a day , Unknown Sildenafil Citrate 100 MG Tablet 1 tablet as needed Orally Once a day , Unknown Mavyret 100-40 MG Tablet 3 tablets Orally Once a day * Allergies: M etformin HCl. Objective: * Vitals: * P ast Orders: Lab:Comprehensive Metabolic Panel (CMP) * Collection Date 08/23/2024 04/11/2024 Collection Time 08:17 AM 11:03 AM Order Date 08/23/2024 05/20/2024 ALT (SGPT) 16 8 Albumin 4.1 4.3 Calcium 9.5 9.6 AST (SGOT) 18 15 Bilirubin, Total 4.1 1.2 CO2 35 30 Chloride 96 93 Creatinine 1.88 1.26 Glucose 237 207 Potassium 2.8 3.1 Protein 8.8 7.5 Sodium 141 138 BUN 22 14 GFR/Black 38 62 GFR/White 38 62 Alkaline Phosphatase 98 101 Assessment: Plan: * Treatment: * Images: * Electronic signature of Aster Sutton MD on 09/06/2024 at 02:35 PM FREIGHT BRAKE OPERATOR Sign off status: Pending * Provider: Marianne Sutton MD Date: 09/03/2024 Generated for Nikolai tsai/Danyelle/Tatyana on: 09/06/2024 02:35 PM FREIGHT BRAKE OPERATOR
--- OUTSIDE RECORDS SUMMARY | 2024-09-06 14:35 | XMS_ITS ---
Author Organization [facility] Address [address] [place] [address] [address] [place] [address] Care Team Providers Care Sample Taker Operator Name Role Phone Rodney KIRBY, Cortney Primary Care Provider Un available Lesley KIRBY, Jeff Unavailable [phone] Encounters Encounter Location Date Provider Diagnosis [address] [place] [address] [place] [phone] 07/09/2024 Jeff Sutton Plan Of Treatment Next Appt Details Provider Name:Jeff lackey, 10/29/2024 12:30:00 PM, [address] [place] [address], [address], [place], [place], [id number], Progress Notes * Jonathon DODSON ADOB:1954 (69 yo M)Acc No.[id number]:07/09/2024 Progress Notes Patient: Jonathon HOLLAND Provider: Marianne Sutton MD :1955 A ge:69 Y S ex:Male Date:07/09/2024 Address:[address] [place], [place] [id number] Pcp:Cortney Stevens MD Subjective: * Chief Complaints: * * Medical History: Objective: * Vitals: Assessment: Plan: * Treatment: * Images: * Electronic signature of Aster Sutton MD on 09/06/2024 at 02:34 PM SAW OPERATOR Sign off status: Pending * Provider: Marianne Sutton MD Date: 1 09/09/2023 Generated for Ashi quin/Danyelle/eTransmitting on: 0 09/06/2024 02:34 PM SAW OPERATOR
--- OUTSIDE RECORDS SUMMARY | 2024-09-06 14:36 | XMS_ITS | Referral Summary ---
Author Organization [facility] Address [address] [place] [address] Care Team Providers Care Production Specialist Name Role Phone aDrell Haji MD Unavailable [phone] Maricruz Ramirez MD Primary Care Provider [phone] Susan Hurley APRN-CENTRAL LAB TECHNICIAN Unavailable [phone] Loc Su MD Unavailable [phone] Maricruz Ramirez MD Unavailable [phone] Palak Ace. Unavailable [phone] Source Comments [facility],non-owned Affiliates and Associated Physician Practices is amultiple site organization consisting of ambulatory clinics and hospital sitesin [place], [place], [place]. This disclosure is being madepursuant to the Care Everywhere program and may not contain all information available regarding this patient. Last updated 18.[facility] Encounters Date Type Department Care Team Description 09/01/2024 Patient Outreach [facility] - Care Coordination [address] [place] [phone] Palak Ace Outreach Preventive Care 09/01/2024 8:30 AM SUPERVISOR MAILS Office Visit [facility] [address] [place] [address] [address] [place] [address] Zarina Zamudio APRN-CENTRAL LAB TECHNICIAN Primary hypertension (Primary Dx); Paroxysmal atrial fibrillation (HCC); Stage 3b chronic kidney disease (HCC); History of CVA (cerebrovascular accident) 08/23/2024 7:29 AM [employer] MAILS - 08/23/2024 2:59 PM [employer] [facility]S Emergency ER at [facility] [address] [place] [id number] Frankie Calhoun DO RUQ pain; Hiccups; Hypokalemia Discharge Disposition: Home or Self Care 08/19/2024 Telephone [facility] Vascular Care [address] [place] [address] [address] [place] [address] Darell Haji MD Refill Request 08/19/2024 Nurse Triage [address] [place] [address] Darell Haji MD Blood Pressure 08/14/2024 Refill [facility] - Endocrinology [address] [place] [address], [address] [place] [phone] Mamadou Jack MD MEDICATION REFILL 08/14/2024 Refill [facility] - Internal Medicine [address] [place] [address] [address] [place] [phone] Maricruz Ramirez MD Refill Request 08/08/2024 Telephone [facility] SURGERY [address] [place] [phone] Katty Guevara, DENTAL LABORATORY TECHNOLOGY TEACHER-CENTRAL LAB TECHNICIAN Follow-up 08/08/2024 Telephone [facility] SURGERY [address] [place] [phone] Katty Guevara, DENTAL LABORATORY TECHNOLOGY TEACHER-CENTRAL LAB TECHNICIAN Follow-up 06/11/2024 11:40 AM [employer]OR [employer]ILS Office Visit [facility] - Internal Medicine [address] [place] [address] [address] [place] [phone] Maricruz Ramirez MD Primary hypertension (Primary Dx); Chronic pain syndrome; Type 2 diabetes mellitus with hyperglycemia, with long-term current use of insulin (HCC); Dilated cardiomyopathy (HCC); History of CVA (cerebrovascular accident); Paroxysmal atrial fibrillation (HCC); PVD (peripheral vascular disease) (HCC); 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 Pregabalin Swelling Medium 04/17/2019 Ankle swelling Metformin GI Discomfort Medium 01/01/2019 Severe diarrhea Medications * Be aware that medications may not be up to date on this document. Alwaysverify current medications with the patient. Medication Sig Dispensed Refills Start Date End Date Status folic acid (FOLVITE) 1 MG tablet Take 1 (one) tablet by mouth once daily 90 tablet 1 1 Active vitamin D, ergocalciferol, (DRISDOL) 1.25 MG (40668 UT) capsule Take 1 (one) capsule by mouth every 7 days 12 capsule 1 Active Insulin Pen Needle (PEN NEEDLES) 32G X 4 MM MISC Use 1 Units 5 times daily 500 Each 3 2 Active tamsulosin (Flomax) 0.4 MG capsuleIndicati ons:Benign Prostatic Hypertrophy Take 2 (two) capsules by mouth once daily At the same time every day after a meal. Reasons: Benign Enlargement of Prostate 100 capsule 1 4 Active atorvastatin (Lipitor) 80 MG tabletIndicatio ns:Type 2 diabetes mellitus with hyperglycemia, with long-term current use of insulin ([facility]) Take 1 (one) tablet by mouth at bedtime 90 tablet 3 4 Active insulin lispro (HumaLOG;ADMelo g) 100 UNIT/ML penIndications: Type 2 diabetes mellitus with hyperglycemia, with long-term current use of insulin ([facility]) Inject 5 (five) Units subcutaneously 3 times daily before meals Hold for BG < 120 15 mL 4 Active Nutritional Supplement LIQD Take 1 container by mouth 2 times daily Your Registered Dietitian recommends that you continue an oral nutrition supplement 2-3 daily for 30 days after discharge. Low Calorie High Protein Supplement Examples: Ensure High Protein/Boost High Protein/Premier Protein High Calorie High Protein Supplement Examples: Ensure Enlive/Ensure Plus/Boost Plus/Equate Plus Diabetic Supplement Examples: Ensure High Protein/Glucerna/B oost Glucose Control/Enterex Diabetic Renal Supplement Examples: Nepro/Novosource Renal 4 Active insulin glargine (Lantus/Semglee ) 100 units/mL penIndications: Type 2 diabetes mellitus with hyperglycemia, with long-term current use of insulin ([facility]) Inject 10 (ten) Units subcutaneously at bedtime 15 mL 1 4 Active ondansetron, disintegrating, (Zofran ODT) 8 MG tabletIndicatio ns:Nausea and vomiting, unspecified vomiting type Take 1 (one) tablet by mouth every 6 hours Allow tablet to dissolve on the tongue 100 tablet 4 Active metoclopramide (Reglan) 5 MG tabletIndicatio ns:Nausea and vomiting, unspecified vomiting type Take 1 (one) tablet by mouth every 8 hours 90 tablet 4 Active ipratropium (Atrovent) 0.03 % nasal sprayIndication s:Rhinorrhea USE 1 TO 2 SPRAYS IN EACH NOSTRIL THREE TIMES DAILY 30 mL 4 Active Continuous Glucose Sensor (FreeStyle Jose J 14 Day Sensor) MISCIndications :Diabetes mellitus type 2, insulin dependent ([facility]) Use 1 Each every 14 days 4 times daily, e11.65 insulin depend 2 Each 4 4 Active potassium chloride ER (K-TAB) 20 MEQ tablet TAKE 1 TABLET BY MOUTH TWICE DAILY 30 tablet 4 Active metoprolol succinate XL 24hr (Toprol XL) 25 MG tablet Take 1 (one) tablet by mouth at bedtime 90 tablet 3 4 Active Insulin Pen Needle 32G X 4 MM MISC USE 4 TIMES DAILY WITH INSULIN 100 Each 4 025 Active baclofen (Lioresal) 5 MG TABSIndications :Chronic pain syndrome TAKE ONE TABLET 3 TIMES DAILY NEEDED. 15 tablet 4 025 Active traMADol (Ultram) 50 MG tabletIndicatio ns:Chronic Pain Take 1 (one) tablet by mouth every 6 hours as needed for Pain Reasons: Chronic Pain 90 tablet 5 Active dapagliflozin propanediol (Farxiga) 5 MG tablet Take 1 (one) tablet by mouth every morning 90 tablet 5 Active chlorproMAZINE (Thorazine) 10 MG tablet Take 1 (one) tablet by mouth 3 times daily as needed (hiccups) 12 tablet 5 Active losartan (Cozaar) 50 MG tablet Take 1 (one) tablet by mouth once daily 30 tablet 4 5 Active pantoprazole EC (Protonix) 40 MG tablet Take 1 (one) tablet by mouth 2 times daily 60 tablet 5 Active insulin detemir (Levemir) pen Inject 15 (fifteen) Units subcutaneously at bedtime 6 mL 4 024 Discontinued(Behzad goodwin Pharm/AVS) pantoprazole EC (Protonix) 40 MG tablet Take 1 (one) tablet by mouth 2 times daily 60 tablet 4 025 Discontinued(Re order) losartan (Cozaar) 25 MG tablet Take 1 (one) tablet by mouth once daily 90 tablet 3 4 025 Discontinued(Re order) dapagliflozin propanediol (Farxiga) 5 MG tablet Take 1 (one) tablet by mouth every morning 30 tablet 2 4 025 Discontinued(Re order) traMADol (Ultram) 50 MG tabletIndicatio ns:Chronic Pain Take 1 (one) tablet by mouth every 8 hours as needed pain Reasons: Chronic Pain 90 tablet 4 025 Discontinued Active Problems Problem Noted Date Diagnosed Date Abdominal pain, generalized 12/18/2023 Hypokalemia 12/09/2023 Hypomagnesemia 12/09/2023 Leukocytosis, unspecified type 12/09/2023 Altered mental status, unspe cified altered mental status type 12/09/2023 Gastroesophageal reflux dise ase with esophagitis without hemorrhage 12/09/2023 Hematemesis with nausea 10/29/2023 Syncope and collapse 10/20/2023 Elevated troponin 10/20/2023 LAURYN (acute kidney injury) 10/20/2023 Nausea and vomiting, unspecified vomiting type 0 10/20/2023 Other constipation 08/06/2023 Neuropathy 05/28/2023 Falls frequently 05/28/2023 Colitis 05/21/2023 Tobacco use 04/30/2023 S/P cataract extraction, right 02/14/2023 0 11/07/2023 Overview (11/07/2023): Last Assessment & Plan: - Doing well, monitor Last Assessment & Plan: PO1M cataract extraction (CE)/posterior chamber intraocular lens (PCIOL) The posterior chamber intraocular lens (PCIOL) is in good position, intraocular pressure (IOP) normotensive - healed well. Educated on symptoms of PCO should develop. There is mild non-proliferative diabetic retinopathy (NPDR) noted both eyes (OU) without macular edema. Educated on findings, stressed importance of close blood sugar and blood pressure control and monitoring. Paroxysmal atrial fibrillation 11/08/2022 Stage 3b chronic kidney disease 11/08/2022 History of CVA (cerebrovascular accident) 2022 History of right shoulder fracture 11/08/2022 Multi-system degeneration of the autonomic nervo us system 07/07/2022 Recurrent major depressive disorder, in partial remission 07/07/2022 Hypernatremia 05/22/2022 Gastrointestinal hemorrhage with hematemesis Dysarthria 04/14/2022 Hypertension 04/14/2022 Hypertensive urgency 04/14/2022 Anemia 04/14/2022 Anemia in chronic kidney disease (CKD) Dilated cardiomyopathy 12/09/2021 Hiatal hernia 05/31/2021 Overview (10/24/2021): Found on EGD, [facility] PVD (peripheral vascular disease) 10/12/2020 Overview (10/12/2020): Maricruz Ramirez MD 09/07/20 Chronic hepatitis C without hepatic coma 021 Overview (10/12/2020): Yojana Lyon, DENTAL LABORATORY TECHNOLOGY TEACHER-CENTRAL LAB TECHNICIAN 03/05/20 Ectatic aorta 10/12/2020 Overview (10/12/2020): Chest xray 06/02/16 Mixed type age-related cataract, both eyes 09/17 Overview (12/09/2021): Last Assessment & Plan: - Although cataracts appear moderate at the [...] and wishes to continue with OTC readers. Last Assessment & Plan: - Although cataracts appear moderate at the [...] and wishes to continue with OTC readers. Hypertrophic obstructive cardiomyopathy (HOCM) 0 09/07/2020 History of hypertension 09/07/2020 Type 2 diabetes mellitus wit h hyperglycemia, with long-term current use of insulin 09/07/2020 Benign prostatic hyperplasia with urinary freque ncy 09/07/2020 CKD (chronic kidney disease) 07/17/2020 Overview (09/02/2020): Last Assessment & Plan: Cr at baseline. 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 Compensated. - f/u outpt Erosive esophagitis 12/30/2018 Hyperbilirubinemia 12/30/2018 Sensorineural hearing loss, asymmetrical 019 Colon polyp 02/20/2013 Vitamin D deficiency 03/27/2011 Resolved Problems Problem Noted Date Diagnosed Date Resolved Date Dehydration 12/18/2023 01/01/2024 Abdominal pain, epigastric 11/15/2023 0 11/19/2023 Acute renal failure, unspeci fied acute renal failure type 11/15/2023 11/19/2023 Chest pain, unspecified type 11/15/2023 11/19/2023 Dehydration 10/20/2023 11/03/2023 Leukocytosis, unspecified type 10/20/2023 11/19/2023 Hyperglycemia 10/20/2023 11/19/2023 Dehydration 06/10/2023 06/24/2023 Lactic acidosis 06/10/2023 11/07/2023 Intractable nausea and vomiting 06/10/2023 11/07/2023 Acute appendicitis with loca lized peritonitis, without perforation, abscess, or gangrene 05/22/2023 11/07/2023 Calculus of gallbladder with out cholecystitis without obstruction 10/16/2022 11/07/2023 Overview (10/16/2022): Added automatically from request for surgery [id number] Upper GI bleed 06/06/2022 11/07/2023 Dehydration 05/22/2022 06/05/2022 Coffee ground emesis 05/22/2022 024 Nausea and vomiting, unspeci fied vomiting type 05/22/2022 11/07/2023 Cerebrovascular accident (CVA) 04/14/2022 11/07/2023 Hypokalemia 04/14/2022 11/07/2023 LAURYN (acute kidney injury) 04/14/2022 Hypomagnesemia 04/14/2022 11/07/2023 Closed nondisplaced fracture of styloid process of left radius 12/30/2020 11/07/2023 BMI 31.0-31.9,adult 09/07/2020 11/07/19 24 Hypokalemia 09/07/2020 11/07/2023 HTN (hypertension) 07/17/2020 Overview (09/02/2020): Last Assessment & Plan: Previously on metop, reported this was d/c'ed due to low BP. Other cirrhosis of liver 03/25/202003/2021 LAURYN (acute kidney injury) 01/26/2019 Chest pain 01/26/2019 09/07/2020 Weight loss 12/30/2018 09/07/2020 Persistent recurrent vomiting 12/30/2018 09/07/2020 DM (diabetes mellitus) type II, controlled, with peripheral vascular disorder 12/30/20182020 Abdominal pain, epigastric 11/03/2017 0 09/07/2020 Dehydration 11/03/2017 11/17/2017 Hematemesis with nausea 11/03/2017 02/03/2021 Overview (06/30/2020): Added automatically from request for surgery [id number] Type II or unspecified type diabetes mellitus with unspecified complication, uncontrolled 04/21/2014 09/07/2020 Essential hypertension, benign 03/27/2011 09/07/2020 Immunizations Name Administration Dates Next Due INFLUENZA VACCINE, TRIV. (AF LURIA, FLUZONE TRIVALENT; 6MO+) (IIV3) 08/18/2015,06/22/2014,07/03/2011,2005 COVID PFIZER 12+YR 30MCG/0.3mL 05/28/2023 COVID PFIZER BIVALENT 12Y+ 30mcg/0.3ML 07/06/2022 Covid Pfizer primary monoval ent 12+ yr 0.3mL Purple cap 11/19/2020,10/23/2020 INFLUENZA VACCINE 05/28/2021, 0,09/19/2018,2013,07/01/2012 INFLUENZA VACCINE, ADJUVANTE D, QUADR. (FLUAD QUADRIVALENT; 65Y+) (AIIV4) 04/30/2023,07/06/2022 INFLUENZA VACCINE, QUADR. (F LUZONE; FLULAVAL; FLUARIX; AFLURIA QUADRIVALENT; 6MO+), 0.5 ML (IIV4) 06/20/2019 INFLUENZA VACCINE, TRIV. (FL UZONE; FLULAVAL; FLUARIX; AFLURIA TRIVALENT; 6MO+), 0.5 ML (IIV3) 09/19/2018,07/01/2012 PNEUMOCOCCAL PCV20 CONJ VAC IM 03/15/2022 PNEUMOCOCCAL PPSV23 06/22/2014,07/01/2012,2005 Social History Tobacco Use Types Packs/Day Years Used Date Smoking Tobacco: Every Day Cigarettes 0.4 45 Passive Smoke Exposure: Never Smokeless Tobacco: Never Tobacco Cessation:Ready to Q uit: No; Counseling Given: No Comments:Smokes 0.50-1 ppd, has been smoking approximately 30 years now Alcohol Use Standard Drinks/Week Comments Not Currently 0 (1 standard drink = 0.6 oz pure alcohol) Quit 5 years ago, drinks once in a blue allen now AUDIT-C Answer Date Recorded Q1: How often do you have a drink containing alcohol? Never 12/18/2023 Q2: How many drinks containi ng alcohol do you have on a typical day when you are drinking? Patient does not drink Q3: How often do you have si x or more drinks on one occasion? Never 12/18/2023 Overall Financial Resource Strain (CARDIA) Answe r Date Recorded How hard is it for you to pa y for the very basics like food, housing, medical care, and heating? Not very hard 12/20/2023 PHQ-2 Answer Date Recorded Patient Health Questionnaire-2 Score 0 09/01/2024 [facility] - Occupational Stress Questionnaire Answer Date Recorded Do you feel stress - tense, restless, nervous, or anxious, or unable to sleep at night because your mind is troubled all the time - these days? Only a little 12/20/2023 Hunger Vital Sign Answer Date Recorded Within the past 12 months, y ou worried that your food would run out before you got the money to buy more. Never true 12/20/19 24 Within the past 12 months, t he food you bought just didn't last and you didn't have money to get more. Never true 12/20/2023 PRAPARE - Transportation Answer Date Re corded In the past 12 months, has l ack of transportation kept you from medical appointments or from getting medications? No 11/28 In the past 12 months, has l ack of transportation kept you from meetings, work, or from getting things needed for daily living? No 12/20/2023 Housing Stability Vital Sign Answer Andre e Recorded In the last 12 months, was t here a time when you were not able to pay the mortgage or rent on time? No 12/20/2023 In the last 12 months, how many places have you lived? 1 12/20/2023 In the last 12 months, was t here a time when you did not have a steady place to sleep or slept in a long-term (including now)? No 12/20/2023 Sex and Gender Information Value Date Recorded Sex Assigned at Not on file Gender Identity Not on file Sexual Orientation Not on file Last Filed Vital Signs Vital Sign Reading Time Taken Comments Blood Pressure 136/86 09/01/2024 8:35 AM [employer]ILS Pulse 70 09/01/2024 8:35 AM [employer]ILS Temperature 36.2 C (97.1 F) 09/01/2024 8:35 AM [employer]S Respiratory Rate 16 08/23/2024 2:30 PM [employer]S Oxygen Saturation 95% 09/01/2024 8:35 AM [employer]S Inhaled Oxygen Concentration 21% 04/15/2022 1 2:00 AM CDT Weight 83.9 kg (185 lb) 09/01/2024 8:35 AM [employer]S Height 182.9 cm (6') 06/11/2024 11:28 AM [employer]S Body Mass Index 25.09 06/11/2024 11:28 AM [employer]S Functional Status Functional Status Response Date of Assess ment Is person deaf or have serious hearing difficult y? No 12/20/2023 Is person blind or have serious difficulty seein g? No 12/20/2023 Does person have serious dif ficulty walking/climbing stairs? Yes 12/20/2023 Does person have difficulty dressing/bathing? Ye s 12/20/2023 Does person have difficulty doing errands alone? Yes 12/20/2023 Cognitive Status Response Date of Assessm ent Does person have difficulty concentrating/remembering/making decisions? Yes 12/20/2023 Plan of Treatment Upcoming Encounters Date Type Department Care Team (Late st Contact Info) Description 09/11/2024 9:00 AM [employer]PER[employer]ILS Office Visit [facility] - Endocrinology [address], [address] [place] [phone] Jones Walter, DENTAL LABORATORY TECHNOLOGY TEACHER-CENTRAL LAB TECHNICIAN [address] [facility], [address] [place] [phone] 09/19/2024 9:30 AM SUPER[employer]IL[employer] Office Visit [facility] - Internal Medicine [address] [place] [address] [address] [place] [phone] Elma Gonzalez, DENTAL LABORATORY TECHNOLOGY TEACHER-CENTRAL LAB TECHNICIAN [address] [facility] [address] [place] [phone] 10/20/2024 1:00 PM CDT Office Visit [facility] - Internal Medicine [address] [place] [address] [address] [place] [phone] [place] [address] [place] [address] [address] [place] [phone] 01/14/2025 9:30 AM CDT Office Visit [facility] [address] [place] [address] [address] [place] [address] Darell Haji MD [address] [place] [address] [address] [place] [address] Goals Goal Patient Goal Type Associated Problems Recent Progress Patient-Stated? Author Medication Management General On track( 022 11:53 AM CDT) Myesha Lomeli, RN Note: Expected end date: ongoing Interventions: Take all medications as prescribed Let your doctor know right away about any changes in your medications Make sure to request a refill of your medication at least one week prior to your last dose Safety General On track( 021 10:39 AM [employer]PER[employer]IL[employer]) Jenny Souza, RN Note: Expected end date: ongoing Interventions: Your nurse will assess your risk for falls/injury each visit Use appropriate and safe transfer methods Use some light at night in your room Keep walking paths clutter free and clear Mobility General No change(2020 12:55 PM CDT) No Roseanne Mcadams RN Note: Expected end date: 07/29/2021 The goal is to maintain or improve your mobility at the optimum level for you. Interventions: Medical Devices Implanted Type Area Manager Of Investigations Device Identifier Shelf Expiration Date Model / Serial / Lot Kit Acc Ams 700 Penl Pros Implanted:Qty: 1 on 07/08/2020 by Greg He MD at [facility] Penis [employer] 05/03/2025 [id number] / / [id number] Description:CB Accessory Kit #[id number] $834.20; SKW Deep Scrotal Retraction System # [id number] $408.37; AMS Conceal [place] # [id number] $2,551.10; AMS 700 CX MS Pump IZ # [id number] $9,995.85 = $13,789.52 Ams 700 Cx Ms Pump Implanted:Qty: 1 on 07/08/2020 by Greg He MD at [facility] Penis 05/24/2022 [id number] / / [id number] Description:CB Ams Control [place] Implanted:Qty: 1 on 07/08/2020 by Greg He MD at [facility] Penis 06/04/2022 [id number] / / [id number] [address] Cm (Rear Tip Institutional Cook) Implanted:Qty: 1 on 07/08/2020 by Greg He MD at [facility] Penis 04/19/2025 [id number] / / [id number] Description:CB Procedures Procedure Name Priority Date/Time Associated Diagnosis Comments CT ABDOMEN PELVIS W CONTRAST STAT 08/23/2024 8:55 AM [employer]ILS RUQ pain TROPONIN-I HIGH SENSITIVE REFLEX 1HOUR Timed 08/23/2024 8:08 AM [employer] XR CHEST 1VW STAT 08/23/2024 6:39 AM [employer]ILS Other chest pain PT-INR STAT 08/23/2024 6:30 AM [employer]S COMPREHENSIVE METABOLIC PANEL STAT 08/23/2024 6:30 AM [employer] CBC W AUTO DIFFERENTIAL STAT 08/23/2024 6:30 AM [employer]ILS TROPONIN-I HIGH SENSITIVE BASELINE + 1HR STAT 08/23/2024 6:30 AM [employer]ILS EKG 12-LEAD STAT 08/23/2024 6:08 AM [employer]PER[employer] MAILS Other chest pain HEMOGLOBIN A1C - POINT OF CARE (AMB) Routine 06/04/2024 9:04 AM [employer] MAILS Diabetes mellitus type 2, insulin dependent (HCC) COLONOSCOPY 06/26/2023 HEPATITIS C RNA QUANTITATIVE Routine 02/25/2020 9:09 AM CDT Chronic hepatitis C without hepatic coma (HCC) from Last 3 Months or Most Recently Relevant to Health Maintenance Results * CT Abdomen Pelvis W Contrast (08/23/2024 8:55 AM SU[employer]ILS) Anatomical Region Laterality Modality Abdomen, Pelvis Computed Tomogra phy 08/23/2024 9:32 AM [employer]ILS Impressions 08/23/2024 9:39 AM [employer]PER[employer]ILS IMPRESSION: 1. Mildly increased gas and fluid in the small bowel and proximal colon suggesting enterocolitis. No obstruction or significant ileus. 2. Other chronic and incidental findings as described. > Interpreting Provider: Stephanie Hall MD on 08/23/2024 9:39 AM Narrative 08/23/2024 9:39 AM SUPER[employer]ILS PROCEDURE: CT ABDOMEN PELVIS W CONTRAST DATE/TIME OF EXAM: 08/23/2024 8:55 AM CLINICAL INFORMATION: None relevant/not provided if blank. Indication: R10.11: Right upper quadrant pain Additional History: Right upper quadrant pain, hiccups COMPARISON: CT abdomen and pelvis from 12/18/2023 TECHNIQUE: CT of the abdomen and pelvis was performed following intravenous contrast utilizing standard protocol. CT dose reduction technique was used, including Automated Exposure Control. CONTRAST: IOPAMIDOL 76 % IV SOLN:100 mL FINDINGS: Respiratory motion artifacts are present throughout the exam. The lung bases are clear and free of effusion. Overall heart size is normal for age. The ascending aorta is mildly enlarged up to 4.4 cm. The descending thoracic aorta is normal in size. The liver has normal size and enhancement. The portal and hepatic veins are patent. The gallbladder surgically absent and there is no abnormal dilatation of the biliary tree or common duct. The pancreas and pancreatic duct are normal. The spleen is normal. Adrenal glands are normal. There are multiple cysts in the kidneys, larger and more numerous on the right measuring up to 3 cm. No intrarenal stones or obstruction. The abdominal aorta and IVC are unremarkable. There is no retroperitoneal or iliac chain adenopathy. Small hiatus hernia is noted. There are some surgical clips near the gastroesophageal junction. The stomach is unremarkable. The proximal duodenum is normal. There is a 3.3 cm distal duodenal diverticulum. Scattered slightly increased fluid and gas is noted in the small bowel without any transition zone. The terminal ileum and appendix are normal. There is fluid in the proximal half the colon. The more distal colon is predominantly empty and contains scattered formed stool. Incidental interposition of the hepatic flexure between the liver and abdominal wall.1 There is no free fluid, free air or abscess. Incidental 2 cm noninflamed umbilical hernia consisting of fatty tissue only. A penile prosthesis reservoir lies in the right anterior pelvis. The urinary bladder is moderately filled. There is evidence of prior TURP. No significant bony findings. Procedure Note Stephanie Hall MD - 08/23/2024 PROCEDURE: CT ABDOMEN PELVIS W CONTRAST DATE/TIME OF EXAM: 08/23/2024 8:55 AM CLINICAL INFORMATION: None relevant/not provided if blank. Indication: R10.11: Right upper quadrant pain Additional History: Right upper quadrant pain, hiccups COMPARISON: CT abdomen and pelvis from 12/18/2023 TECHNIQUE: CT of the abdomen and pelvis was performed following intravenouscontrast utilizing standard protocol. CT dose reduction technique was used, including Automated ExposureControl. CONTRAST: IOPAMIDOL 76 % IV SOLN:100 mL FINDINGS: Respiratory motion artifacts are present throughout the exam. The lung bases are clear and free of effusion. Overall heart size is normal for age. The ascending aorta is mildly enlarged up to 4.4 cm.The descending thoracic aorta is normal in size. The liver has normal size and enhancement. The portal and hepatic veins are patent. The gallbladder surgically absent and there is no abnormal dilatation of the biliary tree or common duct. The pancreas andpancreatic duct are normal. The spleen is normal. Adrenal glands are normal.There are multiple cysts in the kidneys, larger and more numerous on the right measuring up to 3 cm. No intrarenal stones or obstruction. Theabdominal aorta and IVC are unremarkable. There is no retroperitoneal or iliacchain adenopathy. Small hiatus hernia is noted. There are some surgical clips near the gastroesophageal junction. The stomach is unremarkable. The proximal duodenum is normal. There is a 3.3 cm distal duodenal diverticulum. Scattered slightly increased fluid and gas is noted in the small bowel without any transition zone. The terminal ileum and appendix are normal. There is fluid in the proximal half the colon. The more distal colon is predominantly empty and contains scattered formed stool. Incidental interposition of the hepatic flexure between the liver and abdominalwall.1 There is no free fluid, free air or abscess. Incidental 2 cmnoninflamed umbilical hernia consisting of fatty tissue only. A penile prosthesis reservoir lies in the right anterior pelvis. The urinary bladder is moderately filled. There is evidence of prior TURP. No significant bony findings. IMPRESSION: 1. Mildly increased gas and fluid in the small bowel and proximal colon suggesting enterocolitis. No obstruction or significant ileus. 2. Other chronic and incidental findings as described. > Interpreting Provider: Stephanie Hall MD on 08/23/2024 9:39 AM Frankie Calhoun DO CT ORDERABLES * TROPONIN-I HIGH SENSITIVE REFLEX 1HOUR (08/23/2024 8:08 AM [facility]) Troponin I High Sensitive 22 <=35 ng/L 08/23/2024 8:48 AM [facility] Delta Troponin I HS 08/23/2024 8:48 AM [facility] Comment:Delta value intentio melissa not calculated. Baseline to 1 hour specimen collection interval exceeded. Blood BLOOD SPECIMEN / Unknown Venipuncture / Unknown 08/23/2024 8:08 AM [facility] 08/23/2024 8:15 AM [facility] Frankie Calhoun DO LAB - CHEMISTRY JAYME BRUNER [facility] [address] [place] [address] * XR Chest 1Vw (08/23/2024 6:39 AM [facility]) Anatomical Region Laterality Modality Chest Radiographic Mine ging 08/23/2024 7:16 AM [facility] Impressions 08/23/2024 7:16 AM [facility] IMPRESSION: Unremarkable > Interpreting Provider: Stephanie Hall MD on 08/23/2024 7:16 AM Narrative 08/23/2024 7:16 AM [facility] PROCEDURE: XR CHEST 1VW DATE/TIME OF EXAM: 08/23/2024 6:39 AM CLINICAL INFORMATION: None relevant/not provided if blank. Indication: R07.89: Other chest pain Additional History: COMPARISON: Chest from 12/20/2023 FINDINGS: The lungs are clear and free of effusion. The heart and mediastinum are unremarkable. Incidental degenerative changes in the shoulders. Procedure Note Stephanie Hall MD - 08/23/2024 PROCEDURE: XR CHEST 1VW DATE/TIME OF EXAM: 08/23/2024 6:39 AM CLINICAL INFORMATION: None relevant/not provided if blank. Indication: R07.89: Other chest pain Additional History: COMPARISON: Chest from 12/20/2023 FINDINGS: The lungs are clear and free of effusion. The heart and mediastinum are unremarkable. Incidental degenerative changes in the shoulders. IMPRESSION: Unremarkable > Interpreting Provider: Stephanie Hall MD on 08/23/2024 7:16 AM Cady Warner MD DIAGNOSTIC IMAGING O RDERABLES * TROPONIN-I HIGH SENSITIVE BASELINE + 1HR (08/23/2024 6:30 AM [facility]) Troponin I High Sensitive 21 <=35 ng/L 08/23/2024 6:57 AM [facility] Blood BLOOD SPECIMEN / Unknown Venipuncture / Unknown 08/23/2024 6:30 AM [facility] 08/23/2024 6:35 AM [facility] Frankie Calhoun DO LAB - CHEMISTRY ORDE RABLES Performing Organization Address [facility]/ZIP Co de Phone Number [facility] [address] [place] [phone] * PT-INR (08/23/2024 6:30 AM [facility]) Pathologist [facility] PT 13.4 12.1 - 14.8 sec 08/23/2024 6:48 AM [facility] INR 1.0 0.9 - 1.1 08/23/2024 6:48 AM [facility] Blood BLOOD SPECIMEN / Unknown Venipuncture / Unknown 08/23/2024 6:30 AM [facility] 08/23/2024 6:37 AM [facility] Narrative [facility] - 08/23/2024 6:48 AM [facility] Conventional Warfarin Anticoagulant Therapy: INR Reference Range: 2.0-3.0 Intensive Warfarin Anticoagulant Therapy: INR Reference Range: 2.5-3.5 Frankie Calhoun DO LAB - COAGULATION OR DERABLES Performing Organization Address [facility]/ZIP Co de Phone Number [facility] [address] [place], [place] [phone] * (ABNORMAL) CBC W AUTO DIFFERENTIAL (08/23/2024 6:30 AM [facility]) Pathologist [facility] WBC 13.4(H) 4.0 - 10.7 x10E9/L 08/23/2024 6:39 AM [facility] RBC Count 4.72 4.30 - 5.80 x10E12/L 08/23/2024 6:39 AM [facility] Hemoglobin 14.0 13.3 - 17.5 g/dL 08/23/2024 6:39 AM [facility] Hematocrit 40.3 38.7 - 51.1 % 08/23/2024 6:39 AM [facility] MCV 85.4 80.0 - 98.0 fL 08/23/2024 6:39 AM [facility] MCH 29.7 26.7 - 33.6 pg 08/23/2024 6:39 AM [facility] MCHC 34.7 31.7 - 36.3 g/dL 08/23/2024 6:39 AM [facility] RDW-CV 12.6 11.3 - 14.8 % 08/23/2024 6:39 AM [facility] Platelet Count 271 150 - 420 x10E9/L 08/23/2024 6:39 AM [facility] MPV 9.5 7.8 - 11.4 fL 08/23/2024 6:39 AM [facility] Neutrophil % 81.6(H) 41.0 - 74.0 % 08/23/2024 6:39 AM [facility] Lymphocyte % 11.9(L) 17.0 - 47.0 % 08/23/2024 6:39 AM [facility] Monocyte % 5.5 3.0 - 11.0 % 08/23/2024 6:39 AM [facility] Eosinophil % 0.4 0.0 - 7.0 % 08/23/2024 6:39 AM [facility] Basophil % 0.2 0.0 - 1.6 % 08/23/2024 6:39 AM [facility] Immature Granulocytes % 0.4 0.0 - 1.0 % 08/23/2024 6:39 AM [facility] Neutrophil Absolute 10.89(H) 1.60 - 7.50 x10E9/L 08/23/2024 6:39 AM [facility] Lymphocyte Absolute 1.59 1.00 - 4.40 x10E9/L 08/23/2024 6:39 AM [facility] Monocyte Absolute 0.74 0.15 - 1.00 x10E9/L 08/23/2024 6:39 AM [facility] Eosinophil Absolute 0.06 0.00 - 0.60 x10E9/L 08/23/2024 6:39 AM [facility] Basophil Absolute 0.03 0.00 - 0.13 x10E9/L 08/23/2024 6:39 AM [facility] Blood BLOOD SPECIMEN / Unknown Venipuncture / Unknown 08/23/2024 6:30 AM [facility] 08/23/2024 6:37 AM [facility] Frankie Calhoun DO LAB - HEMATOLOGY ORD ERABLES [facility] [address], [place] [phone] * (ABNORMAL) COMPREHENSIVE METABOLIC PANEL (08/23/2024 6:30 AM [facility]) Glucose 237(H) 70 - 99 mg/dL 08/23/2024 6:55 AM [facility] Sodium 141 136 - 145 mmol/L 08/23/2024 6:55 AM [facility] Potassium 2.8(L) 3.5 - 5.1 mmol/L 08/23/2024 6:55 AM [facility] Chloride 96(L) 98 - 107 mmol/L 08/23/2024 6:55 AM [facility] CO2 35(H) 22 - 29 mmol/L 08/23/2024 6:55 AM [facility] Calcium 9.5 8.4 - 10.4 mg/dL 08/23/2024 6:55 AM [facility] Anion Gap 10 6 - 16 mmol/L 08/23/2024 6:55 AM [facility] BUN 22 7 - 26 mg/dL 08/23/2024 6:55 AM [facility] Creatinine 1.88(H) 0.72 - 1.25 mg/dL 08/23/2024 6:55 AM [facility] Alkaline Phosphatase 98 40 - 150 U/L 08/23/2024 6:55 AM [facility] ALT 16 0 - 55 U/L 08/23/2024 6:55 AM [facility] AST 18 5 - 34 U/L 08/23/2024 6:55 AM [facility] Protein Total 8.8(H) 6.4 - 8.3 gm/dL 08/23/2024 6:55 AM [facility] Albumin 4.1 3.4 - 5.0 gm/dL 08/23/2024 6:55 AM [facility] Bilirubin Total 3.0(H) 0.2 - 1.2 mg/dL 08/23/2024 6:55 AM [facility] eGFR by CKD-EPI 38(L) >=90 mL/min/1.7 3 m2 08/23/2024 6:55 AM [facility] Blood BLOOD SPECIMEN / Unknown Venipuncture / Unknown 08/23/2024 6:30 AM [facility] 08/23/2024 6:35 AM [facility] Frankie Calhoun DO LAB - CHEMISTRY JAYME BRUNER Performing Organization Address City/[facility]/ZIP Co de Phone Number [facility] [address] [place] [address] * EKG 12-LEAD (08/23/2024 6:08 AM [facility]) Ventricular Rate 71 BPM [facility] Atrial Rate 71 BPM [facility] P-R Interval 202 ms [facility] QRS Duration ms 94 ms [facility] Q-T Interval ms 450 ms [facility] QTC Calculation (Bezet) 489 ms [facility] Calculated P [place] 68 degrees [facility] Calculated R [place] -67 degrees [facility] Calculated T [place] -38 degrees [facility] Interpretation EKG NORMAL SINUS RHYTHM LEFT ANTERIOR FASCICULAR BLOCK MODERATE VOLTAGE CRITERIA FOR LVH, MAY BE NORMAL VARIANT ( R in aVL , Avinger product ) SEPTAL INFARCT (CITED ON OR BEFORE 11-MAY-2021) ST & T WAVE ABNORMALITY, CONSIDER LATERAL ISCHEMIA ABNORMAL ECG WHEN COMPARED WITH ECG OF 10-DEC-2023 14:53, INVERTED T WAVES HAVE REPLACED NONSPECIFIC T WAVE ABNORMALITY IN INFERIOR LEADS T WAVE INVERSION NOW EVIDENT IN LATERAL LEADS Confirmed by DO FAITH STEPHANIE ([id number]) on 08/23/2024 9:36:12 PM [facility] 08/23/2024 6:08 AM [facility] 08/23/2024 9:36 PM [facility] Frankie Calhoun DO ECG ORDERABLES Performing Organization Address City/[facility]/ZIP Co de Phone Number [facility] * (ABNORMAL) HEMOGLOBIN A1C - POINT OF CARE (AMB) (06/04/2024 9:04 AM [facility]) Pathologist [facility] Hemoglobin A1c POCT 8.0 % [facility] Expiration Date [id number] [facility] Lot # [id number] [facility] QC Verified Yes Yes [facility] Blood BLOOD SPECIMEN / Unknown 06/04/2024 9:04 AM [facility] Darlenemarleni Traylor Jose Angel DENTAL LABORATORY TECHNOLOGY TEACHER-CENTRAL LAB TECHNICIAN LAB - PO INT OF CARE ORDERABLES [facility] [address] [place] [address], [facility] [phone] * COLONOSCOPY (06/26/2023) 06/26/2023 Narrative 06/26/2023 Ordered by an unspecified provider. Scanned Document SCANNING ONLY * HEPATITIS C RNA QUANTITATIVE (02/25/2020 9:09 AM CDT) Pathologist [facility] Hepatitis C RNA PCR, Interp Not Detected Not Detected 02/26/2020 4:48 PM CDT [facility] Blood BLOOD SPECIMEN / Unknown Lab Venipuncture / Unknown 02/25/2020 9:09 AM CDT 02/25/2020 9:26 AM CDT Narrative [facility] - 02/26/2020 4:48 PM CDT The Hepatitis C viral (HCV) RNA analysis utilized a serum sample, real-time reverse poultry field service technician PCR, and is reported as Not Detected, Detected (<12 IU/mL), Quantity (IU/mL) or >100,000,000 IU/mL. The limit of quantitation of the assay is 12 IU/mL (100% of samples with this HCV RNA level were detected). The linear range is from 12 IU/mL to 100,000,000 IU/mL. Values less than 12 IU/mL are reported as Detected (<12 IU/mL). Values greater than 100,000,000 IU/mL are reported as > 100,000,000 IU/mL. The detection/quantitation of HCV RNA in serum is based on the isolation of HCV RNA with reverse poultry field service technician of genomic HCV RNA followed by real-time PCR in the presence of an unrelated RNA internal control. The internal control ensures that RNA is isolated, and that no general significant inhibitors of the RT-PCR process are present. The analysis was performed using a U.[place]. FDA approved test methodology ([employer] Real Time HCV). Yojana Lyon DENTAL LABORATORY TECHNOLOGY TEACHER-CENTRAL LAB TECHNICIAN LAB - CHEMIS TRY ORDERABLES [facility] [address] [place] [address], [facility] [phone] from Last 3 Months or Most Recently Relevant to Health Maintenance Advance Directives * Full Code (Latest Code Status on File) Date Activated Date Inactivated Comments 12/18/2023 2:39 PM 12/24/2023 12:27 PM * Full Code Date Activated Date Inactivated Comments 12/09/2023 12:44 PM 12/12/2023 6:12 PM * Full Code Date Activated Date Inactivated Comments 12/09/2023 12:44 PM 12/09/2023 12:44 PM * Full Code Date Activated Date Inactivated Comments 11/15/2023 4:37 PM 11/19/2023 5:53 PM * Full Code Date Activated Date Inactivated Comments 10/29/2023 2:57 PM 11/02/2023 3:54 PM Care Teams Production Specialist Relationship Specialty Start Date End Date Maricruz Ramirez MD [address] [place] [address] PCP - General Internal Medicine 09/07/20 Maricruz Ramirez MD [address] [place] [address] PCP - [facility] 04/29/24 Darell Haji MD [address] [place] [address] Cardiology 04/17/19 Susan Hurley, DENTAL LABORATORY TECHNOLOGY TEACHER-CENTRAL LAB TECHNICIAN [address] [place] [address] Cardiology 09/26/21 Loc Su MD [address] [place] [address] Surgeon Cardiothoracic Surgery 12/18/23 Palak Ace Care Coordination Specialist Care Management 09/01/24
--- OUTSIDE RECORDS SUMMARY | 2024-09-06 14:36 | XMS_ITS | Patient Health Summary ---
Author Organization [facility] Address [address] [place] [address] Care Team Providers Care Primary Health Organisation Manager Name Role Phone Darell Haji MD Unavailable [phone] Maricruz Ramirez MD Primary Care Provider Susan Hurley APRN-PAINT DEPARTMENT SUPERVISOR Unavailable [phone] Loc Su MD Unavailable [phone] Maricruz Ramirez MD Unavailable [phone] Palak Ace Unavailable [phone] Note from [facility],non-owned Affiliates and Associated Physician Practices is amultiple site organization consisting of ambulatory clinics and hospital sitesin [place], [place], [place] and [place]. This disclosure is being madepursuant to the Care Everywhere program and may not contain all information available regarding this patient. Last updated 18.[facility] Allergies * Venlafaxine(Other) * Apixaban(Bleeding) * Pregabalin(Swelling) -Medium Criticality * Metformin(GI Discomfort) -Medium Criticality Medications * Be aware that medications may not be up to date on this document. Alwaysverify current medications with the patient. * folic acid (FOLVITE) 1 MG tablet(Started 05/18/2021) Take 1 (one) tablet by mouth once daily 1 refill by 05/18/2022 * vitamin D, ergocalciferol, (DRISDOL) 1.25 MG (14077 UT) capsule(Started 05/18/2021) Take 1 (one) capsule by mouth every 7 days * Insulin Pen Needle (PEN NEEDLES) 32G X 4 MM MISC(Started 12/01/2021) Use 1 Units 5 times daily 3 refills by 12/01/2022 * tamsulosin (Flomax) 0.4 MG capsule(Started 08/06/2023) Take 2 (two) capsules by mouth once daily At the same time every day after a meal. Reasons: Benign Enlargement of Prostate 1 refill by 08/05/2024 * atorvastatin (Lipitor) 80 MG tablet(Started 11/07/2023) Take 1 (one) tablet by mouth at bedtime 3 refills by 11/06/2024 * insulin lispro (HumaLOG;ADMelog) 100 UNIT/ML pen(Started 11/30/2023) Inject 5 (five) Units subcutaneously 3 times daily before meals Hold for BG < 120 * Nutritional Supplement LIQD(Started 12/19/2023) Take 1 container by mouth 2 times daily Your Registered Dietitian recommends that you continue an oral nutrition supplement 2-3 daily for 30 days after discharge. Low Calorie High Protein Supplement Examples: Ensure High Protein/Boost High Protein/Premier Protein High Calorie High Protein Supplement Examples: Ensure Enlive/Ensure Plus/Boost Plus/Equate Plus Diabetic Supplement Examples: Ensure High Protein/Glucerna/Boost Glucose Control/Enterex Diabetic Renal Supplement Examples: Nepro/Novosource Renal * insulin glargine (Lantus/Semglee) 100 units/mL pen(Started 12/24/2023) Inject 10 (ten) Units subcutaneously at bedtime 1 refill by 12/23/2024 * ondansetron, disintegrating, (Zofran ODT) 8 MG tablet(Started 12/24/2023) Take 1 (one) tablet by mouth every 6 hours Allow tablet to dissolve on the tongue * metoclopramide (Reglan) 5 MG tablet(Started 12/24/2023) Take 1 (one) tablet by mouth every 8 hours * ipratropium (Atrovent) 0.03 % nasal spray(Started 01/08/2024) USE 1 TO 2 SPRAYS IN EACH NOSTRIL THREE TIMES DAILY * Continuous Glucose Sensor (FreeStyle Jose J 14 Day Sensor) MIS(Started 02/27/2024) Use 1 Each every 14 days 4 times daily, e11.65 insulin depend 4 refills by 02/26/2025 * potassium chloride ER (K-TAB) 20 MEQ tablet(Started 04/04/2024) TAKE 1 TABLET BY MOUTH TWICE DAILY * metoprolol succinate XL 24hr (Toprol XL) 25 MG tablet(Started 04/11/2024) Take 1 (one) tablet by mouth at bedtime 3 refills by 04/11/2025 * Insulin Pen Needle 32G X 4 MM MISC(Started 10/27/2023) USE 4 TIMES DAILY WITH INSULIN * baclofen (Lioresal) 5 MG TABS(Started 06/11/2024) TAKE ONE TABLET 3 TIMES DAILY NEEDED. * traMADol (Ultram) 50 MG tablet(Started 08/21/2024) Take 1 (one) tablet by mouth every 6 hours as needed for Pain Reasons: Chronic Pain * dapagliflozin propanediol (Farxiga) 5 MG tablet(Started 08/14/2024) Take 1 (one) tablet by mouth every morning * chlorproMAZINE (Thorazine) 10 MG tablet(Started 08/23/2024) Take 1 (one) tablet by mouth 3 times daily as needed (hiccups) * losartan (Cozaar) 50 MG tablet(Started 09/01/2024) Take 1 (one) tablet by mouth once daily 4 refills by 09/01/2025 * pantoprazole EC (Protonix) 40 MG tablet(Started 09/01/2024) Take 1 (one) tablet by mouth 2 times daily Ended Medications* insulin detemir (Levemir) pen(Started 10/27/2023) (Discontinued) Inject 15 (fifteen) Units subcutaneously at bedtime * pantoprazole EC (Protonix) 40 MG tablet(Started 12/24/2023)(Discontinued) Take 1 (one) tablet by mouth 2 times daily * losartan (Cozaar) 25 MG tablet(Started 04/14/2024)(Discontinued) Take 1 (one) tablet by mouth once daily 3 refills by 04/14/2025 * dapagliflozin propanediol (Farxiga) 5 MG tablet(Started 06/04/2024) (Discontinued) Take 1 (one) tablet by mouth every morning 2 refills by 06/04/2025 * traMADol (Ultram) 50 MG tablet(Started 06/11/2024)(Discontinued) Take 1 (one) tablet by mouth every 8 hours as needed pain Reasons: Chronic Pain Active Problems Problem Noted Date Diagnosed Date [...] S/P cataract extraction, right 02/14/2023 0 11/07/2023 Paroxysmal atrial fibrillation 11/08/2022 Stage 3b chronic [...] (CKD) Dilated cardiomyopathy 12/09/2021 Hiatal hernia 05/31/2021 PVD (peripheral vascular disease) 10/12/2020 Chronic hepatitis C without hepatic coma 021 Ectatic aorta 10/12/2020 Mixed type age-related cataract, both eyes 09/17 Hypertrophic obstructive cardiomyopathy (HOCM) 0 09/07/2020 History of hypertension 09/07/2020 Type 2 diabetes mellitus wit h hyperglycemia, with long-term current use of insulin 09/07/2020 Benign prostatic hyperplasia with urinary freque ncy 09/07/2020 CKD (chronic kidney disease) 07/17/2020 Impotence due to erectile dysfunction 07/08/2020 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 Erosive esophagitis 12/30/2018 Hyperbilirubinemia 12/30/2018 Sensorineural hearing [...] with out cholecystitis without obstruction 10/16/2022 11/07/2023 Upper GI bleed 06/06/2022 11/07/2023 Dehydration 05/22/2022 06/05/2022 Coffee ground emesis 05/22/2022 024 Nausea and vomiting, unspeci fied vomiting type 05/22/2022 11/07/2023 Cerebrovascular accident (CVA) 04/14/2022 11/07/2023 Hypokalemia 04/14/2022 11/07/2023 LAURYN (acute kidney injury) 04/14/2022 Hypomagnesemia 04/14/2022 11/07/2023 Closed nondisplaced fracture of styloid process of left radius 12/30/2020 11/07/2023 BMI 31.0-31.9,adult 09/07/2020 11/07/19 24 Hypokalemia 09/07/2020 11/07/2023 HTN (hypertension) 07/17/2020 Other cirrhosis of liver 03/25/202003/2021 LAURYN (acute kidney injury) 01/26/2019 Chest pain 01/26/2019 09/07/2020 Weight loss 12/30/2018 09/07/2020 Persistent recurrent vomiting 12/30/2018 09/07/2020 DM (diabetes mellitus) type II, controlled, with peripheral vascular disorder 12/30/20182020 Abdominal pain, epigastric 11/03/2017 0 09/07/2020 Dehydration 11/03/2017 11/17/2017 Hematemesis with nausea 11/03/2017 0203/2021 Type II or unspecified type diabetes mellitus with unspecified complication, uncontrolled 04/21/2014 09/07/2020 Essential hypertension, benign 03/27/2011 09/07/2020 Immunizations * INFLUENZA VACCINE, TRIV. (AFLURIA, FLUZONE TRIVALENT; 6MO+) (IIV3)(Given 08/18/2015, 06/22/2014, 07/03/2011, 06/13/2006) * COVID PFIZER 12+YR 30MCG/0.3mL(Given 05/28/2023) * COVID PFIZER BIVALENT 12Y+ 30mcg/0.3ML(Given 07/06/2022) * Covid Pfizer primary monovalent 12+ yr 0.3mL Purple cap(Given 11/19/2020, 10/23/2020) * INFLUENZA VACCINE(Given 05/28/2021, 06/18/2020, 09/19/2018, 06/22/2014, 07/01/2012) * INFLUENZA VACCINE, ADJUVANTED, QUADR. (FLUAD QUADRIVALENT; 65Y+) (AIIV4)(Given 04/30/2023, 07/06/2022) * INFLUENZA VACCINE, QUADR. (FLUZONE; FLULAVAL; FLUARIX; AFLURIA QUADRIVALENT; 6MO+), 0.5 ML (IIV4)(Given 06/20/2019) * INFLUENZA VACCINE, TRIV. (FLUZONE; FLULAVAL; FLUARIX; AFLURIA TRIVALENT; 6MO+), 0.5 ML (IIV3)(Given 09/19/2018, 07/01/2012) * PNEUMOCOCCAL PCV20 CONJ VAC IM(Given 03/15/2022) * PNEUMOCOCCAL PPSV23(Given 06/22/2014, 07/01/2012, 08/31/2005) Social History Tobacco Use Types Packs/Day Years [...] Recorded Patient Health Questionnaire-2 Score 0 09/01/2024 [facility] - Occupational [...] place to sleep or slept in a snf (including now)? No 12/20/2023 Sex and Gender Information Value Date Recorded Sex Assigned at Not on file Gender Identity Not on file Sexual Orientation Not on file Last Filed Vital Signs Vital Sign Reading Time Taken Comments Blood Pressure 136/86 09/01/2024 8:35 AM GLUER MACHINE OPERATOR Pulse 70 09/01/2024 8:35 AM GLUER MACHINE OPERATOR Temperature 36.2 C (97.1 F) 09/01/2024 8:35 AM GLUER MACHINE OPERATOR Respiratory Rate 16 08/23/2024 2:30 PM GLUER MACHINE OPERATOR Oxygen Saturation 95% 09/01/2024 8:35 AM GLUER MACHINE OPERATOR Inhaled Oxygen Concentration 21% 04/15/2022 1 2:00 AM CDT Weight 83.9 kg (185 lb) 09/01/2024 8:35 AM GLUER MACHINE OPERATOR Height 182.9 cm (6') 06/11/2024 11:28 AM GLUER MACHINE OPERATOR Body Mass Index 25.09 06/11/2024 11:28 AM GLUER MACHINE OPERATOR Medical Devices Implanted Type [employer] Device Identifier Shelf Expiration Date Model / Serial / Lot Kit Acc Ams 700 Penl Pros Implanted:Qty: 1 on 07/08/2020 by Greg He MD at [facility] [place] [employer]ed 05/03/2025 [id number] / / [id number] Description:CB Accessory Kit #[id number] $834.20; SKW Deep Scrotal Retraction System # [id number] $408.37; AMS Conceal [place] # [id number] $2,551.10; AMS 700 CX MS Pump IZ # [id number] $9,995.85 = $13,789.52 Ams 700 Cx Ms Pump Implanted:Qty: 1 on 07/08/2020 by Greg He MD at [facility] 05/24/2022 [id number] / / [id number] Description:CB Ams Control [place] Implanted:Qty: 1 on 07/08/2020 by Greg He MD at [facility] 06/04/2022 [id number] / / [id number] Rte 1.0 Cm (Rear Tip Maintenance Machine Repairer) Implanted:Qty: 1 on 07/08/2020 by Greg He MD at [facility] 04/19/2025 [id number] / / [id number] Description:CB Procedures * CT ABDOMEN PELVIS W CONTRAST(Performed 08/23/2024) Performed for RUQ pain * TROPONIN-I HIGH SENSITIVE REFLEX 1HOUR(Performed 08/23/2024) * XR CHEST 1VW(Performed 08/23/2024) Performed for Other chest pain * PT-INR(Performed 08/23/2024) * COMPREHENSIVE METABOLIC PANEL(Performed 08/23/2024) * CBC W AUTO DIFFERENTIAL(Performed 08/23/2024) * TROPONIN-I HIGH SENSITIVE BASELINE + 1HR(Performed 08/23/2024) * EKG 12-LEAD(Performed 08/23/2024) Performed for Other chest pain * T3 FREE(Performed 06/04/2024) Performed for Borderline abnormal TFTs * T4 FREE(Performed 06/04/2024) Performed for Borderline abnormal TFTs * TSH(Performed 06/04/2024) Performed for Borderline abnormal TFTs * HEMOGLOBIN A1C - POINT OF CARE (AMB)(Performed 06/04/2024) Performed for Diabetes mellitus type 2, insulin dependent (HCC) * GLUCOSE - POINT OF CARE (AMB) STL(Performed 06/04/2024) Performed for Diabetes mellitus type 2, insulin dependent (HCC) * COMPREHENSIVE METABOLIC PANEL(Performed 04/11/2024) Performed for Hypertrophic obstructive cardiomyopathy (HOCM) (HCC), Essential hypertension * IMMUNOFIXATION BLOOD(Performed 04/11/2024) Performed for Hypertrophic obstructive cardiomyopathy (HOCM) (HCC) * KAPPA/LAMBDA LITE CHAIN FREE PANEL(Performed 04/11/2024) Performed for Hypertrophic obstructive cardiomyopathy (HOCM) (HCC) * ECHO COMPLETE(Performed 04/11/2024) Performed for Hypertrophic obstructive cardiomyopathy (HOCM) (HCC) * HEMOGLOBIN A1C - POINT OF CARE (AMB)(Performed 02/27/2024) Performed for Diabetes mellitus type 2, insulin dependent ([facility]) * GLUCOSE - POINT OF CARE (AMB) STL(Performed 02/27/2024) Performed for Diabetes mellitus type 2, insulin dependent ([facility]) * FL ESOPHAGRAM(Performed 02/12/2024) Performed for Hiatal hernia * CARDIAC RHYTHM STRIP ORDER(Performed 12/26/2023) * GLUCOSE - POINT OF CARE(Performed 12/24/2023) * CBC W/O DIFFERENTIAL(Performed 12/24/2023) * COMPREHENSIVE METABOLIC PANEL(Performed 12/24/2023) * GLUCOSE - POINT OF CARE(Performed 12/23/2023) * GLUCOSE - POINT OF CARE(Performed 12/23/2023) * GLUCOSE - POINT OF CARE(Performed 12/23/2023) * GLUCOSE - POINT OF CARE(Performed 12/23/2023) * CBC W/O DIFFERENTIAL(Performed 12/23/2023) * COMPREHENSIVE METABOLIC PANEL(Performed 12/23/2023) * GLUCOSE - POINT OF CARE(Performed 12/22/2023) * GLUCOSE - POINT OF CARE(Performed 12/22/2023) * GLUCOSE - POINT OF CARE(Performed 12/22/2023) * GLUCOSE - POINT OF CARE(Performed 12/22/2023) * COMPREHENSIVE METABOLIC PANEL(Performed 12/22/2023) * CBC W/O DIFFERENTIAL(Performed 12/22/2023) * GLUCOSE - POINT OF CARE(Performed 12/21/2023) * GLUCOSE - POINT OF CARE(Performed 12/21/2023) * FL ESOPHAGRAM(Performed 12/21/2023) Performed for Gastroesophageal reflux disease with esophagitis without hemorrhage * GLUCOSE - POINT OF CARE(Performed 12/21/2023) * GLUCOSE - POINT OF CARE(Performed 12/21/2023) * RENAL FUNCTION PANEL(Performed 12/21/2023) * GLUCOSE - POINT OF CARE(Performed 12/20/2023) * GLUCOSE - POINT OF CARE(Performed 12/20/2023) * GLUCOSE - POINT OF CARE(Performed 12/20/2023) * GLUCOSE - POINT OF CARE(Performed 12/20/2023) * XR CHEST 1VW PORTABLE(Performed 12/20/2023) Performed for Gastroesophageal reflux disease with esophagitis without hemorrhage * GLUCOSE - POINT OF CARE(Performed 12/20/2023) * PATHOLOGY TISSUE EXAM (STL)(Performed 12/20/2023) Performed for Gastroesophageal reflux disease with esophagitis without hemorrhage * ENDOTRACHEAL TUBE NOTE(Performed 12/20/2023) * AR LAP PARAESOPHAG DENNIS REPAIR(Performed 12/20/2023) Performed for Gastroesophageal reflux disease with esophagitis without hemorrhage * MAGNESIUM BLOOD(Performed 12/20/2023) * RENAL FUNCTION PANEL(Performed 12/20/2023) * CBC W/O DIFFERENTIAL(Performed 12/20/2023) * GLUCOSE - POINT OF CARE(Performed 12/19/2023) * GLUCOSE - POINT OF CARE(Performed 12/19/2023) * TYPE + SCREEN PANEL(Performed 12/19/2023) * PHOSPHORUS BLOOD(Performed 12/19/2023) Performed for Hiatal hernia * MAGNESIUM BLOOD(Performed 12/19/2023) Performed for Hiatal hernia * BASIC METABOLIC PANEL (CALCIUM TOTAL)(Performed 12/19/2023) Performed for Hiatal hernia * GLUCOSE - POINT OF CARE(Performed 12/19/2023) * GLUCOSE - POINT OF CARE(Performed 12/19/2023) * PT EVAL AND TREAT(Performed 12/19/2023) * OT EVAL AND TREAT(Performed 12/19/2023) * CBC W/O DIFFERENTIAL(Performed 12/19/2023) Performed for Abdominal pain, generalized, LAURYN (acute kidney injury) (HCC) * BASIC METABOLIC PANEL (CALCIUM TOTAL)(Performed 12/19/2023) Performed for Abdominal pain, generalized, LAURYN (acute kidney injury) ([facility]) * MAGNESIUM BLOOD(Performed 12/19/2023) Performed for Abdominal pain, generalized, LAURYN (acute kidney injury) (HCC) * GLUCOSE - POINT OF CARE(Performed 12/18/2023) * TROPONIN-I HIGH SENSITIVE REFLEX 1HOUR(Performed 12/18/2023) Performed for Abdominal pain, epigastric * GLUCOSE - POINT OF CARE(Performed 12/18/2023) * TROPONIN-I HIGH SENSITIVE BASELINE + 1HR(Performed 12/18/2023) Performed for Abdominal pain, epigastric * CT ABDOMEN PELVIS WO CONTRAST(Performed 12/18/2023) Performed for Abdominal pain, generalized * DIFFERENTIAL MANUAL(Performed 12/18/2023) * MAGNESIUM BLOOD(Performed 12/18/2023) * LIPASE BLOOD(Performed 12/18/2023) * COMPREHENSIVE METABOLIC PANEL(Performed 12/18/2023) * CBC W AUTO DIFFERENTIAL(Performed 12/18/2023) * CARDIAC RHYTHM STRIP ORDER(Performed 12/14/2023) * GLUCOSE - POINT OF CARE(Performed 12/12/2023) * GLUCOSE - POINT OF CARE(Performed 12/12/2023) * PATHOLOGY PERIPHERAL SMEAR REVIEW(Performed 12/12/2023) * CBC W AUTO DIFFERENTIAL(Performed 12/12/2023) * MAGNESIUM BLOOD(Performed 12/12/2023) * BASIC METABOLIC PANEL (CALCIUM TOTAL)(Performed 12/12/2023) * CBC W AUTO DIFFERENTIAL(Performed 12/12/2023) * GLUCOSE - POINT OF CARE(Performed 12/11/2023) * GLUCOSE - POINT OF CARE(Performed 12/11/2023) * MAGNESIUM BLOOD(Performed 12/11/2023) * BASIC METABOLIC PANEL (CALCIUM TOTAL)(Performed 12/11/2023) * GLUCOSE - POINT OF CARE(Performed 12/11/2023) * GLUCOSE - POINT OF CARE(Performed 12/11/2023) * PATHOLOGY PERIPHERAL SMEAR REVIEW(Performed 12/11/2023) * CBC W AUTO DIFFERENTIAL(Performed 12/11/2023) * MAGNESIUM BLOOD(Performed 12/11/2023) * BASIC METABOLIC PANEL (CALCIUM TOTAL)(Performed 12/11/2023) * CBC W AUTO DIFFERENTIAL(Performed 12/11/2023) * GLUCOSE - POINT OF CARE(Performed 12/10/2023) * CARDIAC EKG ORDER(Performed 12/10/2023) * MAGNESIUM BLOOD(Performed 12/10/2023) * BASIC METABOLIC PANEL (CALCIUM TOTAL)(Performed 12/10/2023) * GLUCOSE - POINT OF CARE(Performed 12/10/2023) * CT CHEST WO CONTRAST(Performed 12/10/2023) Performed for Hiatal hernia * EKG 12-LEAD(Performed 12/10/2023) Performed for Hematemesis with nausea * GLUCOSE - POINT OF CARE(Performed 12/10/2023) * FL ESOPHAGRAM(Performed 12/10/2023) Performed for Nausea and vomiting, unspecified vomiting type * GLUCOSE - POINT OF CARE(Performed 12/10/2023) * PATHOLOGY PERIPHERAL SMEAR REVIEW(Performed 12/10/2023) * CBC W AUTO DIFFERENTIAL(Performed 12/10/2023) * CBC W AUTO DIFFERENTIAL(Performed 12/10/2023) * PHOSPHORUS BLOOD(Performed 12/10/2023) * MAGNESIUM BLOOD(Performed 12/10/2023) * BASIC METABOLIC PANEL (CALCIUM TOTAL)(Performed 12/10/2023) * GLUCOSE - POINT OF CARE(Performed 12/09/2023) * BLOOD GASES ALLA(Performed 12/09/2023) * CT ABDOMEN PELVIS WO CONTRAST(Performed 12/09/2023) Performed for Altered mental status, unspecified altered mental status type * CT HEAD WO CONTRAST(Performed 12/09/2023) Performed for Altered mental status, unspecified altered mental status type * TROPONIN-I HIGH SENSITIVE REFLEX 1HOUR(Performed 12/09/2023) * XR CHEST 1VW PORTABLE(Performed 12/09/2023) Performed for Altered mental status, unspecified altered mental status type * TROPONIN-I HIGH SENSITIVE BASELINE + 1HR(Performed 12/09/2023) * HYDROXYBUTYRATE BETA(Performed 12/09/2023) * MAGNESIUM BLOOD(Performed 12/09/2023) * LIPASE BLOOD(Performed 12/09/2023) * COMPREHENSIVE METABOLIC PANEL(Performed 12/09/2023) * CBC W AUTO DIFFERENTIAL(Performed 12/09/2023) * ED CRITICAL CARE(Performed 12/09/2023) * EKG 12-LEAD(Performed 12/09/2023) Performed for Altered mental status, unspecified altered mental status type * GLUCOSE - POINT OF CARE(Performed 12/09/2023) * CARDIAC RHYTHM STRIP ORDER(Performed 11/20/2023) * GLUCOSE - POINT OF CARE(Performed 11/19/2023) * GLUCOSE - POINT OF CARE(Performed 11/19/2023) * CBC W/O DIFFERENTIAL(Performed 11/19/2023) * RENAL FUNCTION PANEL(Performed 11/19/2023) * MAGNESIUM BLOOD(Performed 11/19/2023) * GLUCOSE - POINT OF CARE(Performed 11/18/2023) * GLUCOSE - POINT OF CARE(Performed 11/18/2023) * GLUCOSE - POINT OF CARE(Performed 11/18/2023) * GLUCOSE - POINT OF CARE(Performed 11/18/2023) * CBC W/O DIFFERENTIAL(Performed 11/18/2023) * RENAL FUNCTION PANEL(Performed 11/18/2023) * MAGNESIUM BLOOD(Performed 11/18/2023) * GLUCOSE - POINT OF CARE(Performed 11/17/2023) * GLUCOSE - POINT OF CARE(Performed 11/17/2023) * GLUCOSE - POINT OF CARE(Performed 11/17/2023) * GLUCOSE - POINT OF CARE(Performed 11/17/2023) * RENAL FUNCTION PANEL(Performed 11/17/2023) * CBC W/O DIFFERENTIAL(Performed 11/17/2023) * MAGNESIUM BLOOD(Performed 11/17/2023) * GLUCOSE - POINT OF CARE(Performed 11/16/2023) * GLUCOSE - POINT OF CARE(Performed 11/16/2023) * CARDIAC EKG ORDER(Performed 11/16/2023) * GLUCOSE - POINT OF CARE(Performed 11/16/2023) * GLUCOSE - POINT OF CARE(Performed 11/16/2023) * GLUCOSE - POINT OF CARE(Performed 11/16/2023) * US RETROPERITONEAL COMPLETE(Performed 11/16/2023) Performed for Acute renal failure, unspecified acute renal failure type (HCC) * GLUCOSE - POINT OF CARE(Performed 11/16/2023) * BASIC METABOLIC PANEL (CALCIUM TOTAL)(Performed 11/16/2023) * PHOSPHORUS BLOOD(Performed 11/16/2023) * GLUCOSE - POINT OF CARE(Performed 11/16/2023) * GLUCOSE - POINT OF CARE(Performed 11/16/2023) * GLUCOSE - POINT OF CARE(Performed 11/16/2023) * GLUCOSE - POINT OF CARE(Performed 11/16/2023) * BASIC METABOLIC PANEL (CALCIUM TOTAL)(Performed 11/16/2023) * PHOSPHORUS BLOOD(Performed 11/16/2023) * MAGNESIUM BLOOD(Performed 11/16/2023) * CBC W/O DIFFERENTIAL(Performed 11/16/2023) * GLUCOSE - POINT OF CARE(Performed 11/16/2023) * GLUCOSE - POINT OF CARE(Performed 11/16/2023) * GLUCOSE - POINT OF CARE(Performed 11/16/2023) * GLUCOSE - POINT OF CARE(Performed 11/16/2023) * BASIC METABOLIC PANEL (CALCIUM TOTAL)(Performed 11/16/2023) * PHOSPHORUS BLOOD(Performed 11/16/2023) * GLUCOSE - POINT OF CARE(Performed 11/15/2023) * GLUCOSE - POINT OF CARE(Performed 11/15/2023) * GLUCOSE - POINT OF CARE(Performed 11/15/2023) * CBC W/O DIFFERENTIAL(Performed 11/15/2023) * PHOSPHORUS BLOOD(Performed 11/15/2023) * BASIC METABOLIC PANEL (CALCIUM TOTAL)(Performed 11/15/2023) * GLUCOSE - POINT OF CARE(Performed 11/15/2023) * GLUCOSE - POINT OF CARE(Performed 11/15/2023) * MAGNESIUM BLOOD(Performed 11/15/2023) * OSMOLALITY BLOOD(Performed 11/15/2023) * HYDROXYBUTYRATE BETA(Performed 11/15/2023) * HEMOGLOBIN A1C(Performed 11/15/2023) * COMPREHENSIVE METABOLIC PANEL(Performed 11/15/2023) * BLOOD GASES ARTERIAL(Performed 11/15/2023) * GLUCOSE - POINT OF CARE(Performed 11/15/2023) * PHOSPHORUS BLOOD(Performed 11/15/2023) * BASIC METABOLIC PANEL (CALCIUM TOTAL)(Performed 11/15/2023) * GLUCOSE - POINT OF CARE(Performed 11/15/2023) * CT ABDOMEN PELVIS WO CONTRAST(Performed 11/15/2023) Performed for Abdominal pain, epigastric, Chest pain, unspecified type, Acute renal failure, unspecified acute renal failure type (HCC), Leukocytosis, unspecified type * TROPONIN-I HIGH SENSITIVE REFLEX 1HOUR(Performed 11/15/2023) * BLOOD GASES ALLA(Performed 11/15/2023) * XR CHEST 1VW PORTABLE(Performed 11/15/2023) Performed for Abdominal pain, epigastric * EKG 12-LEAD(Performed 11/15/2023) Performed for Abdominal pain, epigastric, Chest pain, unspecified type * TYPE + SCREEN PANEL(Performed 11/15/2023) * DIFFERENTIAL MANUAL(Performed 11/15/2023) * TROPONIN-I HIGH SENSITIVE BASELINE + 1HR(Performed 11/15/2023) * PT-INR(Performed 11/15/2023) * LIPASE BLOOD(Performed 11/15/2023) * COMPREHENSIVE METABOLIC PANEL(Performed 11/15/2023) * CBC W AUTO DIFFERENTIAL(Performed 11/15/2023) * CARDIAC RHYTHM STRIP ORDER(Performed 11/06/2023) * GLUCOSE - POINT OF CARE(Performed 11/02/2023) * HGB HCT PANEL(Performed 11/02/2023) Performed for Hematemesis with nausea * GLUCOSE - POINT OF CARE(Performed 11/02/2023) * MAGNESIUM BLOOD(Performed 11/02/2023) * BASIC METABOLIC PANEL (CALCIUM TOTAL)(Performed 11/02/2023) * CBC W AUTO DIFFERENTIAL(Performed 11/02/2023) Performed for Hematemesis with nausea * PREPARE RBC LEUKOREDUCED UNIT(Performed 11/02/2023) * PREPARE RBC LEUKOREDUCED UNIT(Performed 11/02/2023) * GLUCOSE - POINT OF CARE(Performed 11/01/2023) * HGB HCT PANEL(Performed 11/01/2023) Performed for Hematemesis with nausea * GLUCOSE - POINT OF CARE(Performed 11/01/2023) * GLUCOSE - POINT OF CARE(Performed 11/01/2023) * GLUCOSE - POINT OF CARE(Performed 11/01/2023) * EGD(Performed 11/01/2023) * [facility] EGD FLEX TRANSORAL DX(Performed 11/01/2023) * GLUCOSE - POINT OF CARE(Performed 11/01/2023) * HGB HCT PANEL(Performed 11/01/2023) Performed for Hematemesis with nausea * TRANSFUSE RED BLOOD CELL LEUKOREDUCED UNIT(S)(Performed 11/01/2023) * GLUCOSE - POINT OF CARE(Performed 11/01/2023) * TYPE + SCREEN PANEL(Performed 11/01/2023) * BASIC METABOLIC PANEL (CALCIUM TOTAL)(Performed 11/01/2023) * CBC W AUTO DIFFERENTIAL(Performed 11/01/2023) Performed for Hematemesis with nausea * GLUCOSE - POINT OF CARE(Performed 10/31/2023) * HGB HCT PANEL(Performed 10/31/2023) Performed for Hematemesis with nausea * GLUCOSE - POINT OF CARE(Performed 10/31/2023) * GLUCOSE - POINT OF CARE(Performed 10/31/2023) * GLUCOSE - POINT OF CARE(Performed 10/31/2023) * HGB HCT PANEL(Performed 10/31/2023) Performed for Hematemesis with nausea * CULTURE BLOOD(Performed 10/31/2023) * BASIC METABOLIC PANEL (CALCIUM TOTAL)(Performed 10/31/2023) * CBC W AUTO DIFFERENTIAL(Performed 10/31/2023) Performed for Hematemesis with nausea * CULTURE BLOOD(Performed 10/31/2023) * GLUCOSE - POINT OF CARE(Performed 10/30/2023) * GLUCOSE - POINT OF CARE(Performed 10/30/2023) * RENAL FUNCTION PANEL(Performed 10/30/2023) Performed for Hematemesis with nausea * PHOSPHORUS BLOOD(Performed 10/30/2023) * GLUCOSE - POINT OF CARE(Performed 10/30/2023) * GLUCOSE - POINT OF CARE(Performed 10/30/2023) * PHOSPHORUS BLOOD(Performed 10/30/2023) * BASIC METABOLIC PANEL (CALCIUM TOTAL)(Performed 10/30/2023) * GLUCOSE - POINT OF CARE(Performed 10/30/2023) * PREPARE RBC LEUKOREDUCED UNIT(Performed 10/30/2023) * GLUCOSE - POINT OF CARE(Performed 10/30/2023) * HGB HCT PANEL(Performed 10/30/2023) Performed for Hematemesis with nausea * PHOSPHORUS BLOOD(Performed 10/30/2023) * BASIC METABOLIC PANEL (CALCIUM TOTAL)(Performed 10/30/2023) * GLUCOSE - POINT OF CARE(Performed 10/30/2023) * GLUCOSE - POINT OF CARE(Performed 10/30/2023) * GLUCOSE - POINT OF CARE(Performed 10/30/2023) * GLUCOSE - POINT OF CARE(Performed 10/30/2023) * DIFFERENTIAL MANUAL(Performed 10/30/2023) Performed for Hematemesis with nausea * CBC W AUTO DIFFERENTIAL(Performed 10/30/2023) Performed for Hematemesis with nausea * MAGNESIUM BLOOD(Performed 10/30/2023) Performed for Hematemesis with nausea, Hyperglycemia * PHOSPHORUS BLOOD(Performed 10/30/2023) * BASIC METABOLIC PANEL (CALCIUM TOTAL)(Performed 10/30/2023) * CARDIAC RHYTHM STRIP ORDER(Performed 10/29/2023) * GLUCOSE - POINT OF CARE(Performed 10/29/2023) * GLUCOSE - POINT OF CARE(Performed 10/29/2023) * PHOSPHORUS BLOOD(Performed 10/29/2023) Performed for Hematemesis with nausea * BASIC METABOLIC PANEL (CALCIUM TOTAL)(Performed 10/29/2023) Performed for Hematemesis with nausea * GLUCOSE - POINT OF CARE(Performed 10/29/2023) * GLUCOSE - POINT OF CARE(Performed 10/29/2023) * GLUCOSE - POINT OF CARE(Performed 10/29/2023) * COAGULATION PANEL W D-DIMER(Performed 10/29/2023) Performed for Hematemesis with nausea * BLOOD TYPE VERIFICATION(Performed 10/29/2023) * HGB HCT PANEL(Performed 10/29/2023) Performed for Hematemesis with nausea * LACTIC ACID BLOOD REFLEX TO REPEAT(Performed 10/29/2023) Performed for Hematemesis with nausea * HYDROXYBUTYRATE BETA(Performed 10/29/2023) Performed for Hematemesis with nausea * PHOSPHORUS BLOOD(Performed 10/29/2023) * BASIC METABOLIC PANEL (CALCIUM TOTAL)(Performed 10/29/2023) * TROPONIN-I HIGH SENSITIVE REFLEX 1HOUR(Performed 10/29/2023) * GLUCOSE(Performed 10/29/2023) Performed for Hyperglycemia * GLUCOSE - POINT OF CARE(Performed 10/29/2023) * TYPE + SCREEN PANEL(Performed 10/29/2023) * MAGNESIUM BLOOD(Performed 10/29/2023) Performed for Hematemesis with nausea * DIFFERENTIAL MANUAL(Performed 10/29/2023) * PT-INR(Performed 10/29/2023) * TROPONIN-I HIGH SENSITIVE BASELINE + 1HR(Performed 10/29/2023) * LIPASE BLOOD(Performed 10/29/2023) * COMPREHENSIVE METABOLIC PANEL(Performed 10/29/2023) * CBC W AUTO DIFFERENTIAL(Performed 10/29/2023) * XR CHEST 1VW PORTABLE(Performed 10/29/2023) Performed for Hematemesis with nausea * XR CHEST 1VW PORTABLE(Performed 10/29/2023) Performed for Hematemesis with nausea * GLUCOSE - POINT OF CARE(Performed 10/27/2023) * CBC W AUTO DIFFERENTIAL(Performed 10/27/2023) * MAGNESIUM BLOOD(Performed 10/27/2023) * RENAL FUNCTION PANEL(Performed 10/27/2023) * GLUCOSE - POINT OF CARE(Performed 10/26/2023) * GLUCOSE - POINT OF CARE(Performed 10/26/2023) * GLUCOSE - POINT OF CARE(Performed 10/26/2023) * GLUCOSE - POINT OF CARE(Performed 10/26/2023) * LACTIC ACID BLOOD(Performed 10/26/2023) * CBC W AUTO DIFFERENTIAL(Performed 10/26/2023) * MAGNESIUM BLOOD(Performed 10/26/2023) * RENAL FUNCTION PANEL(Performed 10/26/2023) * GLUCOSE - POINT OF CARE(Performed 10/25/2023) * GLUCOSE - POINT OF CARE(Performed 10/25/2023) * HELICOBACTER PYLORI UREASE (STL)(Performed 10/25/2023) Performed for Hematemesis with nausea * EGD(Performed 10/25/2023) * AR EGD FLEX TRANSORAL W BX SNGL OR MULT(Performed 10/25/2023) * AR ED EGD FLEX TRANSORAL DX(Performed 10/25/2023) * GLUCOSE - POINT OF CARE(Performed 10/25/2023) * GLUCOSE - POINT OF CARE(Performed 10/25/2023) * CBC W/O DIFFERENTIAL(Performed 10/25/2023) * MAGNESIUM BLOOD(Performed 10/25/2023) * RENAL FUNCTION PANEL(Performed 10/25/2023) * GLUCOSE - POINT OF CARE(Performed 10/24/2023) * GLUCOSE - POINT OF CARE(Performed 10/24/2023) * XR ABDOMEN KUB(Performed 10/24/2023) Performed for Nausea and vomiting, unspecified vomiting type * XR ABDOMEN KUB(Performed 10/24/2023) Performed for Nausea and vomiting, unspecified vomiting type * SLIDE SCAN HEMATOLOGY(Performed 10/24/2023) * CBC W AUTO DIFFERENTIAL(Performed 10/24/2023) * XR ABDOMEN KUB(Performed 10/24/2023) Performed for Nausea and vomiting, unspecified vomiting type * XR ABDOMEN KUB(Performed 10/24/2023) Performed for Nausea and vomiting, unspecified vomiting type * SLIDE SCAN HEMATOLOGY(Performed 10/24/2023) * BASIC METABOLIC PANEL (CALCIUM TOTAL)(Performed 10/24/2023) * LACTIC ACID BLOOD(Performed 10/24/2023) * CBC W AUTO DIFFERENTIAL(Performed 10/24/2023) * GLUCOSE - POINT OF CARE(Performed 10/24/2023) * GLUCOSE - POINT OF CARE(Performed 10/24/2023) * LACTIC ACID BLOOD(Performed 10/24/2023) * TROPONIN-I HIGH SENSITIVE(Performed 10/24/2023) * PT-INR(Performed 10/24/2023) * XR ABDOMEN KUB(Performed 10/24/2023) Performed for Nausea and vomiting, unspecified vomiting type * XR ABDOMEN KUB(Performed 10/24/2023) Performed for Nausea and vomiting, unspecified vomiting type * GLUCOSE - POINT OF CARE(Performed 10/24/2023) * EKG 12-LEAD(Performed 10/24/2023) Performed for V-tach (HCC) * CBC W AUTO DIFFERENTIAL(Performed 10/24/2023) * MAGNESIUM BLOOD(Performed 10/24/2023) * RENAL FUNCTION PANEL(Performed 10/24/2023) * GLUCOSE - POINT OF CARE(Performed 10/23/2023) * GLUCOSE - POINT OF CARE(Performed 10/23/2023) * GLUCOSE - POINT OF CARE(Performed 10/23/2023) * PATHOLOGY TISSUE EXAM (STL)(Performed 10/23/2023) Performed for Diagnosis unknown * ENDOTRACHEAL TUBE NOTE(Performed 10/23/2023) * AR TRANSURETHRAL ELEC-SURG PROSTATECTOM(Performed 10/23/2023) Performed for Diagnosis unknown * GLUCOSE - POINT OF CARE(Performed 10/23/2023) * VANCOMYCIN LEVEL TROUGH(Performed 10/23/2023) * GLUCOSE - POINT OF CARE(Performed 10/23/2023) * RENAL FUNCTION PANEL(Performed 10/23/2023) * CBC W AUTO DIFFERENTIAL(Performed 10/23/2023) * GLUCOSE - POINT OF CARE(Performed 10/22/2023) * CARDIAC EKG ORDER(Performed 10/22/2023) * GLUCOSE - POINT OF CARE(Performed 10/22/2023) * VANCOMYCIN LEVEL PEAK(Performed 10/22/2023) * GLUCOSE - POINT OF CARE(Performed 10/22/2023) * GLUCOSE - POINT OF CARE(Performed 10/22/2023) * GLUCOSE - POINT OF CARE(Performed 10/22/2023) * LACTIC ACID BLOOD(Performed 10/22/2023) * CBC W AUTO DIFFERENTIAL(Performed 10/22/2023) * RENAL FUNCTION PANEL(Performed 10/22/2023) * T4 FREE DIRECT REFLEXED(Performed 10/22/2023) * GLUCOSE - POINT OF CARE(Performed 10/21/2023) * GLUCOSE - POINT OF CARE(Performed 10/21/2023) * GLUCOSE - POINT OF CARE(Performed 10/21/2023) * LACTIC ACID BLOOD(Performed 10/21/2023) * US RETROPERITONEAL COMPLETE(Performed 10/21/2023) Performed for Acute urinary retention * US RETROPERITONEAL COMPLETE(Performed 10/21/2023) Performed for Acute urinary retention * GLUCOSE - POINT OF CARE(Performed 10/21/2023) * PROTEIN ELECTROPHORESIS PATH INTERP BLOOD(Performed 10/21/2023) * VITAMIN D 25-HYDROXY(Performed 10/21/2023) * IMMUNOGLOBULINS IGG/IGM/IGA PANEL(Performed 10/21/2023) * KAPPA/LAMBDA LITE CHAIN FREE PANEL(Performed 10/21/2023) * IMMUNOFIXATION BLOOD(Performed 10/21/2023) * PROTEIN ELECTROPHORESIS WO INTERP BLOOD(Performed 10/21/2023) * CBC W AUTO DIFFERENTIAL(Performed 10/21/2023) * PTH INTACT W/O CALCIUM(Performed 10/21/2023) * TSH REFLEX FREE T4(Performed 10/21/2023) * BASIC METABOLIC PANEL (CALCIUM TOTAL)(Performed 10/21/2023) * GLUCOSE - POINT OF CARE(Performed 10/20/2023) * PROTEIN ELECTROPHORESIS PATH INTERP URINE(Performed 10/20/2023) * PROTEIN ELECTROPHORESIS URINE RANDOM PANEL(Performed 10/20/2023) * PT EVAL AND TREAT(Performed 10/20/2023) * OT EVAL AND TREAT(Performed 10/20/2023) * HEMOGLOBIN A1C(Performed 10/20/2023) * DIFFERENTIAL MANUAL(Performed 10/20/2023) Performed for Acute urinary retention * MAGNESIUM BLOOD(Performed 10/20/2023) Performed for Acute urinary retention * COMPREHENSIVE METABOLIC PANEL(Performed 10/20/2023) Performed for Acute urinary retention * CBC W AUTO DIFFERENTIAL(Performed 10/20/2023) Performed for Acute urinary retention * URINE MICROSCOPIC ONLY REFLEX TO CULTURE(Performed 10/20/2023) * URINALYSIS REFLEX MICROSCOPIC REFLEX CULTURE(Performed 10/20/2023) * CULTURE URINE(Performed 10/20/2023) * PROCALCITONIN LEVEL(Performed 10/20/2023) * SARS-COV-2 (COVID-19) FLU A/B RSV PCR RAPID(Performed 10/20/2023) * TROPONIN-I HIGH SENSITIVE REFLEX 1HOUR(Performed 10/20/2023) * CT ABDOMEN PELVIS WO CONTRAST(Performed 10/20/2023) Performed for Nausea and vomiting, unspecified vomiting type * CT ABDOMEN PELVIS WO CONTRAST(Performed 10/20/2023) Performed for Nausea and vomiting, unspecified vomiting type * BLOOD GASES ALLA(Performed 10/20/2023) * XR CHEST 1VW PORTABLE(Performed 10/20/2023) Performed for Nausea and vomiting, unspecified vomiting type * XR CHEST 1VW PORTABLE(Performed 10/20/2023) Performed for Nausea and vomiting, unspecified vomiting type * EKG 12-LEAD(Performed 10/20/2023) Performed for Syncope and collapse * SLIDE SCAN HEMATOLOGY(Performed 10/20/2023) * HYDROXYBUTYRATE BETA(Performed 10/20/2023) * TROPONIN-I HIGH SENSITIVE BASELINE + 1HR(Performed 10/20/2023) * MAGNESIUM BLOOD(Performed 10/20/2023) * LIPASE BLOOD(Performed 10/20/2023) * CBC W AUTO DIFFERENTIAL(Performed 10/20/2023) * COMPREHENSIVE METABOLIC PANEL(Performed 10/20/2023) * HEMOGLOBIN A1C - POINT OF CARE (AMB)(Performed 08/23/2023) Performed for Diabetes mellitus type 2, insulin dependent (HCC) * GLUCOSE - POINT OF CARE (AMB) STL(Performed 08/23/2023) Performed for Diabetes mellitus type 2, insulin dependent (HCC) * CBC W AUTO DIFFERENTIAL(Performed 07/10/2023) * COMPREHENSIVE METABOLIC PANEL(Performed 07/10/2023) * XR ABD OBSTR SERIES W CHEST 1VW(Performed 07/10/2023) Performed for Constipation, unspecified constipation type * GLUCOSE - POINT OF CARE(Performed 06/30/2023) * CARDIAC RHYTHM STRIP ORDER(Performed 06/27/2023) * ENDOSCOPY ORDER(Performed 06/26/2023) * COLONOSCOPY(Performed 06/26/2023) * GLUCOSE - POINT OF CARE(Performed 06/12/2023) * GLUCOSE - POINT OF CARE(Performed 06/12/2023) * COMPREHENSIVE METABOLIC PANEL(Performed 06/12/2023) * CBC W/O DIFFERENTIAL(Performed 06/12/2023) * GLUCOSE - POINT OF CARE(Performed 06/11/2023) * GLUCOSE - POINT OF CARE(Performed 06/11/2023) * GLUCOSE - POINT OF CARE(Performed 06/11/2023) * GLUCOSE - POINT OF CARE(Performed 06/11/2023) * COMPREHENSIVE METABOLIC PANEL(Performed 06/11/2023) Performed for Lactic acidosis, Compensated HCV cirrhosis (HCC) * LACTIC ACID BLOOD(Performed 06/11/2023) Performed for Lactic acidosis * HEMOGLOBIN A1C(Performed 06/11/2023) Performed for Nausea and vomiting, unspecified vomiting type, LAURYN (acute kidney injury) (HCC), Dehydration * PHOSPHORUS BLOOD(Performed 06/11/2023) Performed for Nausea and vomiting, unspecified vomiting type, LAURYN (acute kidney injury) (HCC), Dehydration * MAGNESIUM BLOOD(Performed 06/11/2023) Performed for Nausea and vomiting, unspecified vomiting type, LAURYN (acute kidney injury) (HCC), Dehydration * LIPID PROFILE(Performed 06/11/2023) Performed for Nausea and vomiting, unspecified vomiting type, LAURYN (acute kidney injury) (HCC), Dehydration * CBC W/O DIFFERENTIAL(Performed 06/11/2023) Performed for Nausea and vomiting, unspecified vomiting type, LAURYN (acute kidney injury) (HCC), Dehydration * GLUCOSE - POINT OF CARE(Performed 06/10/2023) * PT EVAL AND TREAT(Performed 06/10/2023) * OT EVAL AND TREAT(Performed 06/10/2023) * BASIC METABOLIC PANEL (CALCIUM TOTAL)(Performed 06/10/2023) * GLUCOSE - POINT OF CARE(Performed 06/10/2023) * LACTIC ACID BLOOD REFLEX TO REPEAT(Performed 06/10/2023) * GLUCOSE - POINT OF CARE(Performed 06/10/2023) * LACTIC ACID REPEAT REFLEX(Performed 06/10/2023) * LACTIC ACID BLOOD REFLEX TO REPEAT(Performed 06/10/2023) * CT ABDOMEN PELVIS WO CONTRAST(Performed 06/10/2023) Performed for Nausea and vomiting, unspecified vomiting type * URINE MICROSCOPIC ONLY(Performed 06/10/2023) * URINALYSIS REFLEX TO MICROSCOPIC NO CULTURE(Performed 06/10/2023) * GLUCOSE - POINT OF CARE(Performed 06/10/2023) * LACTIC ACID REPEAT REFLEX(Performed 06/10/2023) * HYDROXYBUTYRATE BETA(Performed 06/10/2023) * LACTIC ACID BLOOD REFLEX TO REPEAT(Performed 06/10/2023) * LIPASE BLOOD(Performed 06/10/2023) * COMPREHENSIVE METABOLIC PANEL(Performed 06/10/2023) * CBC W AUTO DIFFERENTIAL(Performed 06/10/2023) * GLUCOSE - POINT OF CARE(Performed 05/24/2023) * GLUCOSE - POINT OF CARE(Performed 05/24/2023) * GLUCOSE - POINT OF CARE(Performed 05/24/2023) * PHOSPHORUS BLOOD(Performed 05/24/2023) * CBC W/O DIFFERENTIAL(Performed 05/24/2023) * MAGNESIUM BLOOD(Performed 05/24/2023) Performed for Severe sepsis (HCC) * COMPREHENSIVE METABOLIC PANEL(Performed 05/24/2023) Performed for Severe sepsis (HCC) * GLUCOSE - POINT OF CARE(Performed 05/23/2023) * GLUCOSE - POINT OF CARE(Performed 05/23/2023) * GLUCOSE - POINT OF CARE(Performed 05/23/2023) * GLUCOSE - POINT OF CARE(Performed 05/23/2023) * GLUCOSE - POINT OF CARE(Performed 05/23/2023) * MAGNESIUM BLOOD(Performed 05/23/2023) Performed for Severe sepsis (HCC) * COMPREHENSIVE METABOLIC PANEL(Performed 05/23/2023) Performed for Severe sepsis (HCC) * CBC W AUTO DIFFERENTIAL(Performed 05/23/2023) Performed for Stage 3b chronic kidney disease (HCC) * GLUCOSE - POINT OF CARE(Performed 05/22/2023) * GLUCOSE - POINT OF CARE(Performed 05/22/2023) * GLUCOSE - POINT OF CARE(Performed 05/22/2023) * GLUCOSE - POINT OF CARE(Performed 05/22/2023) * TYPE + SCREEN PANEL(Performed 05/22/2023) Performed for Stage 3b chronic kidney disease (HCC) * LACTIC ACID BLOOD(Performed 05/22/2023) Performed for Stage 3b chronic kidney disease (HCC) * PT-INR(Performed 05/22/2023) Performed for Stage 3b chronic kidney disease (HCC) * GLUCOSE - POINT OF CARE(Performed 05/21/2023) * CT ABDOMEN PELVIS W CONTRAST(Performed 05/21/2023) Performed for Nausea and vomiting, unspecified vomiting type * SLIDE SCAN HEMATOLOGY(Performed 05/21/2023) * LIPASE BLOOD(Performed 05/21/2023) * COMPREHENSIVE METABOLIC PANEL(Performed 05/21/2023) * CBC W AUTO DIFFERENTIAL(Performed 05/21/2023) * CARDIAC EKG ORDER(Performed 05/18/2023) * TROPONIN-I HIGH SENSITIVE(Performed 05/16/2023) * MAGNESIUM BLOOD(Performed 05/16/2023) * LIPASE BLOOD(Performed 05/16/2023) * COMPREHENSIVE METABOLIC PANEL(Performed 05/16/2023) * CBC W AUTO DIFFERENTIAL(Performed 05/16/2023) * XR CHEST 1VW PORTABLE(Performed 05/16/2023) Performed for Vomiting without nausea, unspecified vomiting type * US ABDOMEN LIMITED(Performed 05/03/2023) Performed for Hyperbilirubinemia * LAB RESULTS ORDER(Performed 2023) * LAB RESULTS ORDER(Performed 2023) * HEMOGLOBIN A1C - POINT OF CARE (AMB)(Performed 04/10/2023) Performed for Diabetes mellitus type 2, insulin dependent (HCC) * GLUCOSE - POINT OF CARE (AMB) STL(Performed 04/10/2023) Performed for Diabetes mellitus type 2, insulin dependent (HCC) * NM MYOCARD PERF REST STRESS(Performed 02/06/2023) Performed for Preop cardiovascular exam * STRESS TEST(Performed 02/06/2023) Performed for Preop cardiovascular exam * CARDIAC RHYTHM STRIP ORDER(Performed 11/02/2022) * GLUCOSE - POINT OF CARE(Performed 10/27/2022) * PATHOLOGY TISSUE EXAM (STL)(Performed 10/27/2022) Performed for Calculus of gallbladder without cholecystitis without obstruction * ENDOTRACHEAL TUBE NOTE(Performed 10/27/2022) * AR LAP,CHOLECYSTECTOMY(Performed 10/27/2022) Performed for Calculus of gallbladder without cholecystitis without obstruction * BASIC METABOLIC PANEL (CALCIUM TOTAL)(Performed 10/27/2022) Performed for Pre-op testing * GLUCOSE - POINT OF CARE(Performed 10/27/2022) * HEMOGLOBIN A1C - POINT OF CARE (AMB)(Performed 10/09/2022) Performed for Diabetes mellitus type 2, insulin dependent (HCC) * GLUCOSE - POINT OF CARE (AMB) STL(Performed 10/09/2022) Performed for Diabetes mellitus type 2, insulin dependent (HCC) * CARDIAC EKG ORDER(Performed 08/29/2022) * CT ABDOMEN PELVIS W CONTRAST(Performed 08/24/2022) Performed for Abdominal pain, generalized * URINE MICROSCOPIC ONLY REFLEX TO CULTURE(Performed 08/24/2022) * URINALYSIS REFLEX MICROSCOPIC REFLEX CULTURE(Performed 08/24/2022) * XR CHEST 2VW(Performed 08/24/2022) Performed for Abdominal pain, generalized * LIPASE BLOOD(Performed 08/24/2022) * COMPREHENSIVE METABOLIC PANEL(Performed 08/24/2022) * CBC W AUTO DIFFERENTIAL(Performed 08/24/2022) * TROPONIN I(Performed 08/24/2022) * EKG 12-LEAD(Performed 08/24/2022) Performed for Abdominal pain, generalized * HEMOGLOBIN A1C - POINT OF CARE (AMB)(Performed 08/01/2022) Performed for Diabetes mellitus type 2, insulin dependent (HCC) * GLUCOSE - POINT OF CARE (AMB) STL(Performed 08/01/2022) Performed for Diabetes mellitus type 2, insulin dependent (HCC) * HEMOGLOBIN A1C - POINT OF CARE (AMB)(Performed 06/13/2022) Performed for Diabetes mellitus type 2, insulin dependent (HCC) * GLUCOSE - POINT OF CARE(Performed 06/13/2022) Performed for Diabetes mellitus type 2, insulin dependent (HCC) * CARDIAC RHYTHM STRIP ORDER(Performed 06/12/2022) * GLUCOSE - POINT OF CARE(Performed 06/09/2022) * GLUCOSE - POINT OF CARE(Performed 06/09/2022) * COMPREHENSIVE METABOLIC PANEL(Performed 06/09/2022) * CBC W/O DIFFERENTIAL(Performed 06/09/2022) * GLUCOSE - POINT OF CARE(Performed 06/08/2022) * GLUCOSE - POINT OF CARE(Performed 06/08/2022) * GLUCOSE - POINT OF CARE(Performed 06/08/2022) * GLUCOSE - POINT OF CARE(Performed 06/08/2022) * COMPREHENSIVE METABOLIC PANEL(Performed 06/08/2022) * CBC W/O DIFFERENTIAL(Performed 06/08/2022) * GLUCOSE - POINT OF CARE(Performed 06/07/2022) * GLUCOSE - POINT OF CARE(Performed 06/07/2022) * CULTURE BLOOD(Performed 06/07/2022) Performed for Leukemoid reaction * CULTURE BLOOD(Performed 06/07/2022) Performed for Leukemoid reaction * XR CHEST 1VW PORTABLE(Performed 06/07/2022) Performed for Leukemoid reaction * GLUCOSE - POINT OF CARE(Performed 06/07/2022) * US RETROPERITONEAL COMPLETE(Performed 06/07/2022) Performed for LAURYN (acute kidney injury) (HCC) * RETIC COUNT(Performed 06/07/2022) * FERRITIN(Performed 06/07/2022) * IRON + TRANSFERRIN PANEL(Performed 06/07/2022) * PT-INR(Performed 06/07/2022) * PHOSPHORUS BLOOD(Performed 06/07/2022) * MAGNESIUM BLOOD(Performed 06/07/2022) * COMPREHENSIVE METABOLIC PANEL(Performed 06/07/2022) * CBC W/O DIFFERENTIAL(Performed 06/07/2022) * URINE MICROSCOPIC ONLY REFLEX TO CULTURE(Performed 06/06/2022) * URINALYSIS REFLEX MICROSCOPIC REFLEX CULTURE(Performed 06/06/2022) * PT-INR(Performed 06/06/2022) * CULTURE URINE(Performed 06/06/2022) * LIPASE BLOOD(Performed 06/06/2022) * COMPREHENSIVE METABOLIC PANEL(Performed 06/06/2022) * CBC W AUTO DIFFERENTIAL(Performed 06/06/2022) * CARDIAC RHYTHM STRIP ORDER(Performed 05/30/2022) * GLUCOSE - POINT OF CARE(Performed 05/26/2022) * BASIC METABOLIC PANEL (CALCIUM TOTAL)(Performed 05/26/2022) * CBC W/O DIFFERENTIAL(Performed 05/26/2022) * PREPARE RBC LEUKOREDUCED UNIT(Performed 05/26/2022) * GLUCOSE - POINT OF CARE(Performed 05/25/2022) * GLUCOSE - POINT OF CARE(Performed 05/25/2022) * GLUCOSE - POINT OF CARE(Performed 05/25/2022) * GLUCOSE - POINT OF CARE(Performed 05/25/2022) * RENAL FUNCTION PANEL(Performed 05/25/2022) * CBC W/O DIFFERENTIAL(Performed 05/25/2022) * URINE DRUG SCREEN IMMUNOASSAY(Performed 05/25/2022) * GLUCOSE - POINT OF CARE(Performed 05/25/2022) * GLUCOSE - POINT OF CARE(Performed 05/25/2022) * GLUCOSE - POINT OF CARE(Performed 05/25/2022) * GLUCOSE - POINT OF CARE(Performed 05/24/2022) * GLUCOSE - POINT OF CARE(Performed 05/24/2022) * GLUCOSE - POINT OF CARE(Performed 05/24/2022) * GLUCOSE - POINT OF CARE(Performed 05/24/2022) * HGB HCT PANEL(Performed 05/24/2022) * GLUCOSE - POINT OF CARE(Performed 05/24/2022) * GLUCOSE - POINT OF CARE(Performed 05/24/2022) * HGB HCT PANEL(Performed 05/24/2022) * GLUCOSE - POINT OF CARE(Performed 05/24/2022) * HGB HCT PANEL(Performed 05/24/2022) * GLUCOSE - POINT OF CARE(Performed 05/24/2022) * PATHOLOGY TISSUE EXAM (STL)(Performed 05/24/2022) Performed for Gastrointestinal hemorrhage, unspecified gastrointestinal hemorrhage type * HELICOBACTER PYLORI UREASE (STL)(Performed 05/24/2022) Performed for Gastrointestinal hemorrhage, unspecified gastrointestinal hemorrhage type * AR EGD FLEX TRANSORAL W BX SNGL OR MULT(Performed 05/24/2022) * AR ED EGD FLEX TRANSORAL DX(Performed 05/24/2022) * EGD(Performed 05/24/2022) * COMPREHENSIVE METABOLIC PANEL(Performed 05/24/2022) * CBC W AUTO DIFFERENTIAL(Performed 05/24/2022) * GLUCOSE - POINT OF CARE(Performed 05/23/2022) * HGB HCT PANEL(Performed 05/23/2022) * GLUCOSE - POINT OF CARE(Performed 05/23/2022) * BASIC METABOLIC PANEL (CALCIUM TOTAL)(Performed 05/23/2022) * HGB HCT PANEL(Performed 05/23/2022) * GLUCOSE - POINT OF CARE(Performed 05/23/2022) * RENAL FUNCTION PANEL(Performed 05/23/2022) * GLUCOSE - POINT OF CARE(Performed 05/23/2022) * HGB HCT PANEL(Performed 05/23/2022) * PHOSPHORUS BLOOD(Performed 05/23/2022) * LACTIC ACID BLOOD(Performed 05/23/2022) * MAGNESIUM BLOOD(Performed 05/23/2022) * CBC W AUTO DIFFERENTIAL(Performed 05/23/2022) * COMPREHENSIVE METABOLIC PANEL(Performed 05/23/2022) * GLUCOSE - POINT OF CARE(Performed 05/23/2022) * RENAL FUNCTION PANEL(Performed 05/23/2022) * HGB HCT PANEL(Performed 05/23/2022) * PT-INR(Performed 05/23/2022) * LACTIC ACID BLOOD(Performed 05/23/2022) * GLUCOSE - POINT OF CARE(Performed 05/22/2022) * ED CRITICAL CARE(Performed 05/22/2022) * CT ABDOMEN PELVIS WO CONTRAST(Performed 05/22/2022) Performed for Nausea and vomiting, unspecified vomiting type * XR CHEST 1VW PORTABLE(Performed 05/22/2022) Performed for Nausea and vomiting, unspecified vomiting type * BLOOD GASES ALLA(Performed 05/22/2022) Performed for Coffee ground emesis * COMPREHENSIVE METABOLIC PANEL(Performed 05/22/2022) * TYPE + SCREEN PANEL(Performed 05/22/2022) * LIPASE BLOOD(Performed 05/22/2022) * COMPREHENSIVE METABOLIC PANEL(Performed 05/22/2022) * CBC W AUTO DIFFERENTIAL(Performed 05/22/2022) * GLUCOSE - POINT OF CARE(Performed 04/19/2022) * GLUCOSE - POINT OF CARE(Performed 04/19/2022) * GLUCOSE - POINT OF CARE(Performed 04/19/2022) * GLUCOSE - POINT OF CARE(Performed 04/18/2022) * GLUCOSE - POINT OF CARE(Performed 04/18/2022) * GLUCOSE - POINT OF CARE(Performed 04/18/2022) * XR SHOULDER RIGHT 2VW OR MORE(Performed 04/18/2022) Performed for Cerebrovascular accident (CVA), unspecified mechanism (HCC) * GLUCOSE - POINT OF CARE(Performed 04/18/2022) * GLUCOSE - POINT OF CARE(Performed 04/18/2022) * GLUCOSE - POINT OF CARE(Performed 04/18/2022) * GLUCOSE - POINT OF CARE(Performed 04/18/2022) * PHOSPHORUS BLOOD(Performed 04/18/2022) * MAGNESIUM BLOOD(Performed 04/18/2022) * CBC W/O DIFFERENTIAL(Performed 04/18/2022) * BASIC METABOLIC PANEL (CALCIUM TOTAL)(Performed 04/18/2022) * GLUCOSE - POINT OF CARE(Performed 04/17/2022) * GLUCOSE - POINT OF CARE(Performed 04/17/2022) * ECHO COMPLETE W BUBBLE STUDY(Performed 04/17/2022) Performed for Cerebrovascular accident (CVA), unspecified mechanism (HCC) * CARDIAC EKG ORDER(Performed 04/17/2022) * GLUCOSE - POINT OF CARE(Performed 04/17/2022) * CBC W/O DIFFERENTIAL(Performed 04/17/2022) * GLUCOSE - POINT OF CARE(Performed 04/17/2022) * GLUCOSE - POINT OF CARE(Performed 04/17/2022) * PHOSPHORUS BLOOD(Performed 04/17/2022) * MAGNESIUM BLOOD(Performed 04/17/2022) * CBC W/O DIFFERENTIAL(Performed 04/17/2022) * BASIC METABOLIC PANEL (CALCIUM TOTAL)(Performed 04/17/2022) * GLUCOSE - POINT OF CARE(Performed 2022) * GLUCOSE - POINT OF CARE(Performed 2022) * GLUCOSE - POINT OF CARE(Performed 2022) * GLUCOSE - POINT OF CARE(Performed 2022) * GLUCOSE - POINT OF CARE(Performed 2022) * GLUCOSE - POINT OF CARE(Performed 04/15/2022) * PHOSPHORUS BLOOD(Performed 04/15/2022) * MAGNESIUM BLOOD(Performed 04/15/2022) * CBC W/O DIFFERENTIAL(Performed 04/15/2022) * BASIC METABOLIC PANEL (CALCIUM TOTAL)(Performed 04/15/2022) * GLUCOSE - POINT OF CARE(Performed 04/15/2022) * CT HEAD WO CONTRAST(Performed 04/15/2022) Performed for Cerebrovascular accident (CVA), unspecified mechanism (HCC) * GLUCOSE - POINT OF CARE(Performed 04/15/2022) * MRI BRAIN WO CONTRAST(Performed 04/15/2022) Performed for Cerebrovascular accident (CVA), unspecified mechanism (HCC) * MAGNESIUM BLOOD(Performed 04/15/2022) * GLUCOSE - POINT OF CARE(Performed 04/15/2022) * GLUCOSE - POINT OF CARE(Performed 04/15/2022) * BASIC METABOLIC PANEL (CALCIUM TOTAL)(Performed 04/15/2022) * GLUCOSE - POINT OF CARE(Performed 04/15/2022) * TROPONIN I(Performed 04/15/2022) * PHOSPHORUS BLOOD(Performed 04/15/2022) * MAGNESIUM BLOOD(Performed 04/15/2022) * CBC W/O DIFFERENTIAL(Performed 04/15/2022) * BASIC METABOLIC PANEL (CALCIUM TOTAL)(Performed 04/15/2022) * GLUCOSE - POINT OF CARE(Performed 04/14/2022) * TROPONIN I(Performed 04/14/2022) * URINE DRUG SCREEN IMMUNOASSAY(Performed 04/14/2022) * URINALYSIS REFLEX TO MICROSCOPIC NO CULTURE(Performed 04/14/2022) * BLOOD TYPE VERIFICATION(Performed 04/14/2022) * TROPONIN I(Performed 04/14/2022) * TROPONIN I(Performed 04/14/2022) * HEMOGLOBIN A1C(Performed 04/14/2022) * XR CHEST 1VW PORTABLE(Performed 04/14/2022) Performed for Cerebrovascular accident (CVA), unspecified mechanism (HCC) * PHOSPHORUS BLOOD(Performed 04/14/2022) * MAGNESIUM BLOOD(Performed 04/14/2022) * LIPID PROFILE(Performed 04/14/2022) * TROPONIN I(Performed 04/14/2022) * PT-INR [facility](Performed 04/14/2022) * COMPREHENSIVE METABOLIC PANEL(Performed 04/14/2022) * CBC W AUTO DIFFERENTIAL(Performed 04/14/2022) * TYPE + SCREEN PANEL(Performed 04/14/2022) * INR WHOLE BLOOD - POINT OF CARE (IP) STROKE(Performed 04/14/2022) * CREATININE - POCT INTERFACED(Performed 04/14/2022) * CT ANGIO BRAIN NECK STROKE(Performed 04/14/2022) Performed for Weakness * CT BRAIN STROKE(Performed 04/14/2022) Performed for Weakness * XR SHOULDER RIGHT 2VW OR MORE(Performed 03/29/2022) Performed for Right shoulder pain, unspecified chronicity * VAS ARTERIAL ANKLE ARM INDEX(Performed 03/28/2022) Performed for Discoloration of skin of lower leg * US ABDOMEN LIMITED(Performed 01/31/2022) Performed for Compensated HCV cirrhosis (HCC) * GLUCOSE - POINT OF CARE (AMB) STL(Performed 12/19/2021) Performed for Diabetes mellitus type 2, insulin dependent (HCC) * HEMOGLOBIN A1C (EXT RESULT ENTRY)(Performed 12/19/2021) * MRI BRAIN WO CONTRAST(Performed 11/18/2021) Performed for Recurrent falls * PATHOLOGY TISSUE EXAM (STL)(Performed 10/28/2021) Performed for Dysphagia, unspecified type * HELICOBACTER PYLORI UREASE (STL)(Performed 10/28/2021) Performed for Dysphagia, unspecified type * EGD(Performed 10/28/2021) Performed for Dysphagia, unspecified type * AR EGD FLEX TRANSORAL W BX SNGL OR MULT(Performed 10/28/2021) Performed for Dysphagia, unspecified type * AR ED EGD FLEX TRANSORAL DX(Performed 10/28/2021) Performed for Dysphagia, unspecified type * GLUCOSE - POINT OF CARE(Performed 10/28/2021) * HEMOGLOBIN A1C - POINT OF CARE (AMB)(Performed 10/24/2021) Performed for Type 2 diabetes mellitus with hyperglycemia, with long-term current use of insulin ([facility]) * EKG 12-LEAD(Performed 09/26/2021) Performed for Essential hypertension, Chest pain, unspecified type, Syncope, unspecified syncope type * VITAMIN D 25-HYDROXY(Performed 05/17/2021) Performed for Memory loss, Vitamin D deficiency * RPR(Performed 05/17/2021) Performed for Memory loss * VITAMIN B12 FOLATE PANEL(Performed 05/17/2021) Performed for Memory loss * LIPID PROFILE REFLEX LDL DIRECT(Performed 05/17/2021) Performed for Diabetes mellitus type 2, insulin dependent (HCC) * IMMUNOFIXATION BLOOD(Performed 05/17/2021) Performed for Dysautonomia orthostatic hypotension syndrome * CARDIAC EKG ORDER(Performed 05/13/2021) * GLUCOSE - POINT OF CARE(Performed 05/12/2021) * MAGNESIUM BLOOD(Performed 05/12/2021) Performed for Intractable vomiting with nausea, unspecified vomiting type * CBC W/O DIFFERENTIAL(Performed 05/12/2021) Performed for Abdominal pain, epigastric * BASIC METABOLIC PANEL (CALCIUM TOTAL)(Performed 05/12/2021) Performed for Hypokalemia * GLUCOSE - POINT OF CARE(Performed 05/12/2021) * BASIC METABOLIC PANEL (CALCIUM TOTAL)(Performed 05/11/2021) Performed for Hypokalemia * BASIC METABOLIC PANEL (CALCIUM TOTAL)(Performed 05/11/2021) Performed for Hypokalemia * GLUCOSE - POINT OF CARE(Performed 05/11/2021) * CT ABDOMEN PELVIS WO CONTRAST(Performed 05/11/2021) Performed for Abdominal pain, epigastric * XR CHEST 1VW PORTABLE(Performed 05/11/2021) Performed for Abdominal pain, epigastric * LIPASE BLOOD(Performed 05/11/2021) * TROPONIN I(Performed 05/11/2021) * COMPREHENSIVE METABOLIC PANEL(Performed 05/11/2021) * CBC W AUTO DIFFERENTIAL(Performed 05/11/2021) * EKG 12-LEAD(Performed 05/11/2021) Performed for Abdominal pain, epigastric * CARDIAC EKG ORDER(Performed 04/11/2021) * CT ABDOMEN PELVIS WO CONTRAST(Performed 04/10/2021) Performed for Hypokalemia * EKG 12-LEAD(Performed 04/10/2021) Performed for Hypokalemia * LACTIC ACID BLOOD REFLEX TO REPEAT(Performed 04/10/2021) * URINE MICROSCOPIC ONLY REFLEX TO CULTURE(Performed 04/10/2021) * URINALYSIS REFLEX MICROSCOPIC REFLEX CULTURE(Performed 04/10/2021) * LIPASE BLOOD(Performed 04/09/2021) * MAGNESIUM BLOOD(Performed 04/09/2021) * COMPREHENSIVE METABOLIC PANEL(Performed 04/09/2021) * CBC W AUTO DIFFERENTIAL(Performed 04/09/2021) * US ABDOMEN LIMITED(Performed 04/08/2021) Performed for Compensated HCV cirrhosis (HCC) * GLUCOSE - POINT OF CARE(Performed 03/29/2021) Performed for Diabetes mellitus type 2, insulin dependent (HCC) * HEMOGLOBIN A1C (EXTERNAL RESULT ENTRY)(Performed 03/29/2021) * XR HAND LEFT 3VW OR MORE(Performed 02/24/2021) Performed for Closed fracture of left wrist, initial encounter * GLUCOSE - POINT OF CARE (AMB) STL(Performed 01/25/2021) Performed for Diabetes mellitus type 2, insulin dependent (HCC) * HEMOGLOBIN A1C (EXT RESULT ENTRY)(Performed 01/25/2021) * XR WRIST LEFT 3VW OR MORE(Performed 01/20/2021) Performed for Closed fracture of left wrist with routine healing, subsequent encounter * XR WRIST LEFT 3VW OR MORE(Performed 12/30/2020) Performed for Closed fracture of left wrist with routine healing, subsequent encounter * EVENT MONITOR(Performed 12/20/2020) Performed for Syncope and collapse * GLUCOSE - POINT OF CARE (AMB) STL(Performed 12/09/2020) Performed for Diabetes mellitus type 2, insulin dependent (HCC) * HEMOGLOBIN A1C (EXTERNAL RESULT ENTRY)(Performed 12/09/2020) * XR CERVICAL SPINE 2 OR 3VW(Performed 11/19/2020) Performed for Cervical radiculopathy * HEMOGLOBIN A1C - POINT OF CARE (AMB)(Performed 11/19/2020) Performed for Type 2 diabetes mellitus with hyperglycemia, with long-term current use of insulin (HCC) * XR HAND BILAT 3VW OR MORE(Performed 11/10/2020) Performed for Fall, initial encounter * US ABDOMEN LIMITED(Performed 09/02/2020) Performed for Cirrhosis of liver without ascites, unspecified hepatic cirrhosis type (HCC) * CARDIAC EKG ORDER(Performed 09/01/2020) * TROPONIN I(Performed 08/31/2020) * XR CHEST 2VW(Performed 08/31/2020) Performed for Dizziness * LIPASE BLOOD(Performed 08/31/2020) * TROPONIN I(Performed 08/31/2020) * COMPREHENSIVE METABOLIC PANEL(Performed 08/31/2020) * CBC W AUTO DIFFERENTIAL(Performed 08/31/2020) * EKG 12-LEAD(Performed 08/31/2020) Performed for Dizziness * CARDIAC RHYTHM STRIP ORDER(Performed 07/12/2020) * BASIC METABOLIC PANEL (CALCIUM TOTAL)(Performed 07/08/2020) Performed for Impotence due to erectile dysfunction * GLUCOSE - POINT OF CARE(Performed 07/08/2020) * NEURAXIAL BLOCK(Performed 07/08/2020) * INSERTION PENILE PROSTHESIS (ANY TYPE)(Performed 07/08/2020) Performed for Diagnosis unknown * GLUCOSE - POINT OF CARE(Performed 07/08/2020) * SARS-COV-2 (COVID-19) IN HOUSE(Performed 07/06/2020) Performed for Impotence due to erectile dysfunction * SARS-COV2 (COVID-19) PANEL (STL)(Performed 07/06/2020) Performed for Impotence due to erectile dysfunction * US ABDOMEN LIMITED(Performed 03/23/2020) Performed for Chronic hepatitis C without hepatic coma (HCC) * HEPATITIS C RNA QUANTITATIVE(Performed 02/25/2020) Performed for Chronic hepatitis C without hepatic coma (HCC) * COMPREHENSIVE METABOLIC PANEL(Performed 02/25/2020) Performed for Chronic hepatitis C without hepatic coma (HCC) * CBC W AUTO DIFFERENTIAL(Performed 02/25/2020) Performed for Chronic hepatitis C without hepatic coma (HCC) * HEMOGLOBIN A1C(Performed 02/12/2020) Performed for Type 2 diabetes mellitus with hyperglycemia, with long-term current use of insulin (HCC) * COMPREHENSIVE METABOLIC PANEL(Performed 02/12/2020) Performed for Type 2 diabetes mellitus with hyperglycemia, with long-term current use of insulin (HCC) * CARDIAC RHYTHM STRIP ORDER(Performed 12/26/2019) * GLUCOSE - POINT OF CARE(Performed 12/25/2019) * PATHOLOGY TISSUE EXAM (STL)(Performed 12/25/2019) Performed for Diagnosis unknown * LARYNGEAL MASK AIRWAY(Performed 12/25/2019) * CIRCUMCISION(Performed 12/25/2019) Performed for Diagnosis unknown * GLUCOSE - POINT OF CARE(Performed 12/25/2019) * SARS-COV-2 (COVID-19) IN HOUSE(Performed 12/24/2019) Performed for Preop examination * CHLAMYDIA + GC AMPLIFIED PROBE(Performed 12/11/2019) * RPR W REFLEX TO TITER (MONITOR)(Performed 12/11/2019) * URINE MICROSCOPIC ONLY REFLEX TO CULTURE(Performed 12/11/2019) * URINALYSIS REFLEX MICROSCOPIC REFLEX CULTURE(Performed 12/11/2019) * COMPREHENSIVE METABOLIC PANEL(Performed 12/11/2019) * CBC W AUTO DIFFERENTIAL(Performed 12/11/2019) * HEPATITIS C RNA QUANTITATIVE(Performed 12/09/2019) Performed for Chronic hepatitis C without hepatic coma (HCC) * COMPREHENSIVE METABOLIC PANEL(Performed 12/09/2019) Performed for Chronic hepatitis C without hepatic coma (HCC) * CBC W AUTO DIFFERENTIAL(Performed 12/09/2019) Performed for Chronic hepatitis C without hepatic coma (HCC) * LIPID PROFILE(Performed 12/09/2019) Performed for Dyspnea on exertion, Chest pain, unspecified type, Hypertrophic obstructive cardiomyopathy (HOCM) (HCC) * HEPATITIS C RNA QUANTITATIVE(Performed 11/17/2019) Performed for Chronic hepatitis C without hepatic coma (HCC) * COMPREHENSIVE METABOLIC PANEL(Performed 11/17/2019) Performed for Chronic hepatitis C without hepatic coma (HCC) * CBC W AUTO DIFFERENTIAL(Performed 11/17/2019) Performed for Chronic hepatitis C without hepatic coma (HCC) * VAS ARTERIAL ANKLE ARM INDEX(Performed 10/08/2019) Performed for Pain in both lower extremities * AR LIVER ELASTOGRAPHY(Performed 10/06/2019) Performed for Hepatitis C virus infection without hepatic coma, unspecified chronicity * HELICOBACTER PYLORI UREASE (STL)(Performed 09/26/2019) Performed for Gastroesophageal reflux disease, esophagitis presence not specified * EGD(Performed 09/26/2019) * GLUCOSE - POINT OF CARE(Performed 09/26/2019) * AR EGD FLEX TRANSORAL W BX SNGL OR MULT(Performed 09/26/2019) Performed for Gastroesophageal reflux disease, esophagitis presence not specified * AR ED EGD FLEX TRANSORAL DX(Performed 09/26/2019) Performed for Gastroesophageal reflux disease, esophagitis presence not specified * CARDIAC RHYTHM STRIP ORDER(Performed 08/25/2019) * CARDIAC EKG ORDER(Performed 08/25/2019) * GLUCOSE - POINT OF CARE(Performed 08/24/2019) * GLUCOSE - POINT OF CARE(Performed 08/24/2019) * GLUCOSE - POINT OF CARE(Performed 08/24/2019) * MAGNESIUM BLOOD(Performed 08/24/2019) * COMPREHENSIVE METABOLIC PANEL(Performed 08/24/2019) * CBC W AUTO DIFFERENTIAL(Performed 08/24/2019) * GLUCOSE - POINT OF CARE(Performed 08/24/2019) * URINE MICROSCOPIC ONLY(Performed 08/23/2019) * URINALYSIS REFLEX TO MICROSCOPIC NO CULTURE(Performed 08/23/2019) * GLUCOSE - POINT OF CARE(Performed 08/23/2019) * GLUCOSE - POINT OF CARE(Performed 08/23/2019) * GLUCOSE - POINT OF CARE(Performed 08/23/2019) * EKG 12-LEAD(Performed 08/23/2019) Performed for Abdominal pain, epigastric, Chest pain, unspecified type * GLUCOSE - POINT OF CARE(Performed 08/23/2019) * GLUCOSE - POINT OF CARE(Performed 08/23/2019) * ANTIBODY SCREEN(Performed 08/23/2019) * BLOOD TYPE ABO+ RH PANEL(Performed 08/23/2019) * TROPONIN I(Performed 08/23/2019) * COMPREHENSIVE METABOLIC PANEL(Performed 08/23/2019) Performed for Renal insufficiency, Type 2 diabetes mellitus with hyperglycemia, unspecified whetherlong term insulin use (HCC) * HEMOGLOBIN A1C(Performed 08/23/2019) * CBC W AUTO DIFFERENTIAL(Performed 08/23/2019) Performed for Hematemesis with nausea * GLUCOSE - POINT OF CARE(Performed 08/23/2019) * GLUCOSE - POINT OF CARE(Performed 08/23/2019) * XR CHEST 1VW PORTABLE(Performed 08/22/2019) Performed for Hematemesis with nausea * LIPASE BLOOD(Performed 08/22/2019) * PT-INR(Performed 08/22/2019) * AMMONIA(Performed 08/22/2019) * COMPREHENSIVE METABOLIC PANEL(Performed 08/22/2019) * CBC W AUTO DIFFERENTIAL(Performed 08/22/2019) * EKG 12-LEAD(Performed 08/22/2019) Performed for Hematemesis with nausea * HEPATITIS B CORE ANTIBODY TOTAL(Performed 06/20/2019) Performed for Hepatitis C virus infection without hepatic coma, unspecified chronicity * HEPATITIS B SURFACE ANTIGEN W RFLX CONFIRMATION(Performed 06/20/2019) Performed for Hepatitis C virus infection without hepatic coma, unspecified chronicity * HEPATITIS B SURFACE ANTIBODY(Performed 06/20/2019) Performed for Hepatitis C virus infection without hepatic coma, unspecified chronicity * HEPATITIS C RNA QUANTITATIVE(Performed 06/20/2019) Performed for Hepatitis C virus infection without hepatic coma, unspecified chronicity * PT-INR [facility](Performed 06/20/2019) Performed for Hepatitis C virus infection without hepatic coma, unspecified chronicity * COMPREHENSIVE METABOLIC PANEL(Performed 06/20/2019) Performed for Hepatitis C virus infection without hepatic coma, unspecified chronicity * CBC W AUTO DIFFERENTIAL(Performed 06/20/2019) Performed for Hepatitis C virus infection without hepatic coma, unspecified chronicity * PFT-LAB(Performed 05/27/2019) Performed for Dyspnea on exertion * GLUCOSE - POINT OF CARE(Performed 05/15/2019) * GLUCOSE - POINT OF CARE(Performed 05/15/2019) * GLUCOSE - POINT OF CARE(Performed 05/15/2019) * HYDROXYBUTYRATE BETA(Performed 05/15/2019) * BLOOD GASES ALLA(Performed 05/15/2019) * PHOSPHORUS BLOOD(Performed 05/15/2019) * OSMOLALITY BLOOD(Performed 05/15/2019) * MAGNESIUM BLOOD(Performed 05/15/2019) * LIPASE BLOOD(Performed 05/15/2019) * COMPREHENSIVE METABOLIC PANEL(Performed 05/15/2019) * CBC W AUTO DIFFERENTIAL(Performed 05/15/2019) * ECHOCARDIOGRAM STRESS(Performed 03/12/2019) Performed for Dyspnea on exertion, Chest pain, unspecified type, Hypertrophic obstructive cardiomyopathy (HOCM) (HCC) * CARDIAC RHYTHM STRIP ORDER(Performed 01/29/2019) * CARDIAC EKG ORDER(Performed 01/28/2019) * GLUCOSE - POINT OF CARE(Performed 01/27/2019) * GLUCOSE - POINT OF CARE(Performed 01/27/2019) * CBC W/O DIFFERENTIAL(Performed 01/27/2019) * BASIC METABOLIC PANEL (CALCIUM TOTAL)(Performed 01/27/2019) * GLUCOSE - POINT OF CARE(Performed 01/26/2019) * GLUCOSE - POINT OF CARE(Performed 01/26/2019) * URINE MICROSCOPIC ONLY REFLEX TO CULTURE(Performed 01/26/2019) * URINALYSIS REFLEX MICROSCOPIC REFLEX CULTURE(Performed 01/26/2019) * CULTURE URINE(Performed 01/26/2019) * GLUCOSE - POINT OF CARE(Performed 01/26/2019) * GLUCOSE - POINT OF CARE(Performed 01/26/2019) * US RETROPERITONEAL COMPLETE(Performed 01/26/2019) Performed for LAURYN (acute kidney injury) ([facility]) * GLUCOSE - POINT OF CARE(Performed 01/26/2019) * BASIC METABOLIC PANEL (CALCIUM TOTAL)(Performed 01/26/2019) Performed for LAURYN (acute kidney injury) ([facility]) * CULTURE BLOOD(Performed 01/26/2019) * CULTURE BLOOD(Performed 01/26/2019) * PT EVAL AND TREAT(Performed 01/26/2019) * OT EVAL AND TREAT(Performed 01/26/2019) * B-TYPE NATRIURETIC PEPTIDE(Performed 01/26/2019) * LACTIC ACID BLOOD(Performed 01/26/2019) * T3 FREE(Performed 01/26/2019) * T4 FREE DIRECT REFLEXED(Performed 01/26/2019) * MAGNESIUM BLOOD(Performed 01/26/2019) * TSH REFLEX FREE T4(Performed 01/26/2019) * TROPONIN I(Performed 01/26/2019) * XR CHEST 2VW(Performed 01/26/2019) Performed for Chest pain, unspecified type * COMPREHENSIVE METABOLIC PANEL(Performed 01/26/2019) * CBC W AUTO DIFFERENTIAL(Performed 01/26/2019) * TROPONIN I(Performed 01/26/2019) * EKG 12-LEAD(Performed 01/26/2019) Performed for Chest pain, unspecified type * CARDIAC RHYTHM STRIP ORDER(Performed 01/06/2019) * GLUCOSE - POINT OF CARE(Performed 01/01/2019) * GLUCOSE - POINT OF CARE(Performed 01/01/2019) * CBC W AUTO DIFFERENTIAL(Performed 01/01/2019) Performed for DM (diabetes mellitus) type II, controlled, with peripheral vascular disorder ([facility]) * BASIC METABOLIC PANEL (CALCIUM TOTAL)(Performed 01/01/2019) Performed for DM (diabetes mellitus) type II, controlled, with peripheral vascular disorder ([facility]) * GLUCOSE - POINT OF CARE(Performed 12/31/2018) * GLUCOSE - POINT OF CARE(Performed 12/31/2018) * GLUCOSE - POINT OF CARE(Performed 12/31/2018) * GLUCOSE - POINT OF CARE(Performed 12/31/2018) * ECHOCARDIOGRAM 2D WITH DOPPLER(Performed 12/31/2018) Performed for Heart murmur * RENAL FUNCTION PANEL(Performed 12/31/2018) Performed for DM (diabetes mellitus) type II, controlled, with peripheral vascular disorder (HCC) * GLUCOSE - POINT OF CARE(Performed 12/31/2018) * GLUCOSE - POINT OF CARE(Performed 12/31/2018) * GLUCOSE - POINT OF CARE(Performed 12/31/2018) * GLUCOSE - POINT OF CARE(Performed 12/31/2018) * CULTURE VRE(Performed 12/31/2018) Performed for Persistent recurrent vomiting * CULTURE MRSA(Performed 12/31/2018) Performed for Persistent recurrent vomiting * CULTURE MRSA(Performed 12/31/2018) Performed for Persistent recurrent vomiting * GLUCOSE - POINT OF CARE(Performed 12/31/2018) * HEMOGLOBIN A1C(Performed 12/31/2018) Performed for DM (diabetes mellitus) type II, controlled, with peripheral vascular disorder (HCC) * PHOSPHORUS BLOOD(Performed 12/31/2018) Performed for DM (diabetes mellitus) type II, controlled, with peripheral vascular disorder ([facility]) * MAGNESIUM BLOOD(Performed 12/31/2018) Performed for Persistent recurrent vomiting * CBC W AUTO DIFFERENTIAL(Performed 12/31/2018) Performed for Persistent recurrent vomiting * COMPREHENSIVE METABOLIC PANEL(Performed 12/31/2018) Performed for Persistent recurrent vomiting * GLUCOSE - POINT OF CARE(Performed 12/31/2018) * GLUCOSE - POINT OF CARE(Performed 12/31/2018) * GLUCOSE - POINT OF CARE(Performed 12/31/2018) * GLUCOSE - POINT OF CARE(Performed 12/31/2018) * GLUCOSE - POINT OF CARE(Performed 12/30/2018) * GLUCOSE - POINT OF CARE(Performed 12/30/2018) * RENAL FUNCTION PANEL(Performed 12/30/2018) Performed for DM (diabetes mellitus) type II, controlled, with peripheral vascular disorder (HCC) * GLUCOSE - POINT OF CARE(Performed 12/30/2018) * GLUCOSE(Performed 12/30/2018) Performed for DM (diabetes mellitus) type II, controlled, with peripheral vascular disorder (HCC) * BLOOD GASES ARTERIAL(Performed 12/30/2018) Performed for DM (diabetes mellitus) type II, controlled, with peripheral vascular disorder (HCC) * PHOSPHORUS BLOOD(Performed 12/30/2018) Performed for DM (diabetes mellitus) type II, controlled, with peripheral vascular disorder (HCC) * MAGNESIUM BLOOD(Performed 12/30/2018) Performed for DM (diabetes mellitus) type II, controlled, with peripheral vascular disorder (HCC) * BASIC METABOLIC PANEL (CALCIUM TOTAL)(Performed 12/30/2018) Performed for DM (diabetes mellitus) type II, controlled, with peripheral vascular disorder (HCC) * GLUCOSE - POINT OF CARE(Performed 12/30/2018) * GLUCOSE - POINT OF CARE(Performed 12/30/2018) * HYDROXYBUTYRATE BETA(Performed 12/30/2018) Performed for DM (diabetes mellitus) type II, controlled, with peripheral vascular disorder (HCC) * LACTIC ACID BLOOD(Performed 12/30/2018) Performed for Erosive esophagitis * URINE MICROSCOPIC ONLY REFLEX TO CULTURE(Performed 12/30/2018) * URINALYSIS REFLEX MICROSCOPIC REFLEX CULTURE(Performed 12/30/2018) * CULTURE URINE(Performed 12/30/2018) * CT CHEST ABDOMEN PELVIS W CONT(Performed 12/30/2018) Performed for Persistent recurrent vomiting * TROPONIN I(Performed 12/30/2018) * PT PTT PANEL(Performed 12/30/2018) * LIPASE BLOOD(Performed 12/30/2018) * COMPREHENSIVE METABOLIC PANEL(Performed 12/30/2018) * CBC W AUTO DIFFERENTIAL(Performed 12/30/2018) * PATHOLOGY TISSUE EXAM (STL)(Performed 11/07/2018) Performed for Dysphagia, unspecified type, Gastroesophageal reflux disease, esophagitis presence not specified, Weight loss * HELICOBACTER PYLORI UREASE (STL)(Performed 11/07/2018) Performed for Dysphagia, unspecified type, Gastroesophageal reflux disease, esophagitis presence not specified, Weight loss * ESOPHAGOGASTRODUODENOSCOPY (EGD) BIOPSY(Performed 11/07/2018) Performed for Dysphagia, unspecified type, Gastroesophageal reflux disease, esophagitis presence not specified, Weight loss * ESOPHAGOGASTRODUODENOSCOPY (EGD) DIAGNOSTIC(Performed 11/07/2018) Performed for Dysphagia, unspecified type, Gastroesophageal reflux disease, esophagitis presence not specified, Weight loss * EGD(Performed 11/07/2018) * GLUCOSE - POINT OF CARE(Performed 11/07/2018) * BASIC METABOLIC PANEL (CALCIUM TOTAL)(Performed 11/17/2017) * GLUCOSE - POINT OF CARE(Performed 11/17/2017) * GLUCOSE - POINT OF CARE(Performed 11/17/2017) * GLUCOSE - POINT OF CARE(Performed 11/16/2017) * COMPREHENSIVE METABOLIC PANEL(Performed 11/16/2017) * CBC W AUTO DIFFERENTIAL(Performed 11/16/2017) * CARDIAC EKG ORDER(Performed 11/06/2017) * BASIC METABOLIC PANEL (CALCIUM TOTAL)(Performed 11/04/2017) Performed for Nausea and vomiting, intractability of vomiting not specified, unspecified vomiting type * GLUCOSE - POINT OF CARE(Performed 11/04/2017) * HEMOGLOBIN A1C(Performed 11/04/2017) Performed for Diabetes mellitus due to underlying condition with hyperosmolarity without coma, without long-term current use of insulin (HCC) * URINE MICROSCOPIC ONLY REFLEX TO CULTURE(Performed 11/04/2017) * CREATININE URINE RANDOM(Performed 11/04/2017) Performed for Nausea and vomiting, intractability of vomiting not specified, unspecified vomiting type * SODIUM URINE RANDOM(Performed 11/04/2017) Performed for Nausea and vomiting, intractability of vomiting not specified, unspecified vomiting type * URINE DRUG SCREEN IMMUNOASSAY(Performed 11/04/2017) Performed for Nausea and vomiting, intractability of vomiting not specified, unspecified vomiting type * URINALYSIS REFLEX MICROSCOPIC REFLEX CULTURE(Performed 11/04/2017) * GLUCOSE - POINT OF CARE(Performed 11/03/2017) * GLUCOSE - POINT OF CARE(Performed 11/03/2017) * TROPONIN I(Performed 11/03/2017) * LACTIC ACID BLOOD(Performed 11/03/2017) * GLUCOSE - POINT OF CARE(Performed 11/03/2017) * XR ABD OBSTR SERIES W CHEST 1VW(Performed 11/03/2017) Performed for Abdominal pain, epigastric, Nausea and vomiting, intractability of vomiting not specified, unspecified vomiting type * EKG 12-LEAD(Performed 11/03/2017) Performed for Abdominal pain, epigastric * LACTIC ACID BLOOD(Performed 11/03/2017) * MAGNESIUM BLOOD(Performed 11/03/2017) Performed for Nausea and vomiting, intractability of vomiting not specified, unspecified vomiting type * TROPONIN I(Performed 11/03/2017) * COMPREHENSIVE METABOLIC PANEL(Performed 11/03/2017) * CBC W AUTO DIFFERENTIAL(Performed 11/03/2017) * LIPASE BLOOD(Performed 11/03/2017) * HEPATITIS C GENOTYPE 1 NS5A DRUG RESISTANCE(Performed 09/25/2016) * HEPATITIS C GENOTYPE(Performed 09/25/2016) * ALPHA FETOPROTEIN BLOOD TUMOR MARKER(Performed 09/25/2016) * ETHANOL URINE QUAL MEDICAL(Performed 09/25/2016) * FERRITIN(Performed 09/25/2016) * DRUG ABUSE PANEL 10-20+ETHANOL URINE NO CONFIRM(Performed 09/25/2016) * COMPREHENSIVE METABOLIC PANEL(Performed 09/25/2016) * CBC W AUTO DIFFERENTIAL(Performed 09/25/2016) * CBC W AUTO DIFFERENTIAL(Performed 09/25/2016) * HEPATITIS C GENOTYPE(Performed 02/01/2015) * EMMSS-2-YKLELGLPSPT BLOOD PHENOTYPING PANEL(Performed 02/01/2015) * JUANCARLOS BLOOD SCREEN(Performed 02/01/2015) * MITOCHONDRIAL ANTIBODY SCREEN(Performed 02/01/2015) * SMOOTH MUSCLE ANTIBODY(Performed 02/01/2015) * HEPATITIS C RNA QUANTITATIVE(Performed 02/01/2015) * ALPHA FETOPROTEIN BLOOD TUMOR MARKER(Performed 02/01/2015) * HEPATITIS A ANTIBODY(Performed 02/01/2015) * HEPATITIS C ANTIBODY(Performed 02/01/2015) * HEPATITIS B SURFACE ANTIGEN W RFLX CONFIRMATION(Performed 02/01/2015) * HEPATITIS B SURFACE ANTIBODY(Performed 02/01/2015) * HEPATITIS B CORE ANTIBODY TOTAL(Performed 02/01/2015) * AKKTM-0-[id number] BLOOD(Performed 02/01/2015) * CERULOPLASMIN(Performed 02/01/2015) * FERRITIN(Performed 02/01/2015) * COMPREHENSIVE METABOLIC PANEL(Performed 02/01/2015) * PT-INR [facility](Performed 02/01/2015) * CBC W AUTO DIFFERENTIAL(Performed 02/01/2015) * JUANCARLOS BLOOD SCREEN W/REFLEX TITER(Performed 02/01/2015) * CBC W AUTO DIFFERENTIAL(Performed 02/01/2015) * COMPREHENSIVE METABOLIC PANEL(Performed 07/20/2014) * HEMOGLOBIN A1C - POINT OF CARE (AMB) [facility](Performed 07/20/2014) * COLONOSCOPY BIOPSY (ANY METHOD)(Performed 02/10/2013) Performed for Special screening for malignant neoplasms, colon * COLONOSCOPY SCREEN(Performed 02/10/2013) Performed for Special screening for malignant neoplasms, colon * PATHOLOGY TISSUE EXAM (STL)(Performed 02/10/2013) Performed for Colon cancer screening * ENDOSCOPY, COLON, SCREENING(Performed 02/10/2013) Results * CT Abdomen Pelvis W Contrast (08/23/2024 8:55 AM GLUER MACHINE OPERATOR) Only the most recent of3 resultswithin the time period is included. Anatomical Region Laterality Modality Abdomen, Pelvis Computed Tomogra phy 08/23/2024 9:32 AM GLUER MACHINE OPERATOR Impressions 08/23/2024 9:39 AM GLUER MACHINE OPERATOR IMPRESSION: 1. Mildly increased gas and fluid in the small bowel and proximal colon suggesting enterocolitis. No obstruction or significant ileus. 2. Other chronic and incidental findings as described. > Interpreting Provider: Stephanie Hall MD on 08/23/2024 9:39 AM Narrative 08/23/2024 9:39 AM GLUER MACHINE OPERATOR PROCEDURE: CT ABDOMEN PELVIS W CONTRAST DATE/TIME [...] HIGH SENSITIVE REFLEX 1HOUR (08/23/2024 8:08 AM GLUER MACHINE OPERATOR) Only the most recent of6 resultswithin the time period is included. Troponin I High Sensitive 22 <=35 ng/L 08/23/2024 8:48 AM GLUER MACHINE OPERATOR [facility] Delta Troponin I HS 08/23/2024 8:48 AM GLUER MACHINE OPERATOR [facility] Comment:Delta value intentio melissa not calculated. Baseline to 1 hour specimen collection interval exceeded. Blood BLOOD SPECIMEN / Unknown Venipuncture / Unknown 08/23/2024 8:08 AM GLUER MACHINE OPERATOR 08/23/2024 8:15 AM GLUER MACHINE OPERATOR Frankie Calhoun DO LAB - CHEMISTRY JAYME BRUNER [facility] Organization Address City/State/ZIP Co de Phone Number [facility] [address] [phone] * XR Chest 1Vw (08/23/2024 6:39 AM GLUER MACHINE OPERATOR) Anatomical Region Laterality Modality Chest Radiographic Lázaro ging 08/23/2024 7:16 AM GLUER MACHINE OPERATOR Impressions 08/23/2024 7:16 AM GLUER MACHINE OPERATOR IMPRESSION: Unremarkable > Interpreting Provider: Stephanie Hall MD on 08/23/2024 7:16 AM Narrative 08/23/2024 7:16 AM GLUER MACHINE OPERATOR PROCEDURE: XR CHEST 1VW DATE/TIME OF EXAM: [...] SENSITIVE BASELINE + 1HR (08/23/2024 6:30 AM GLUER MACHINE OPERATOR) Only the most recent of6 resultswithin the time period is included. Pathologist [facility] Troponin I High Sensitive 21 <=35 ng/L 08/23/2024 6:57 AM GLUER MACHINE OPERATOR [facility] Blood BLOOD SPECIMEN / Unknown Venipuncture / Unknown 08/23/2024 6:30 AM GLUER MACHINE OPERATOR 08/23/2024 6:35 AM GLUER MACHINE OPERATOR Frankie Calhoun DO LAB - CHEMISTRY JAYME BRUNER Performing Organization Address City/State/[facility] Co de Phone Number [facility] [address] [place] [id number] * PT-INR (08/23/2024 6:30 AM GLUER MACHINE OPERATOR) Only the most recent of9 resultswithin the time period is included. Pathologist [facility] PT 13.4 12.1 - 14.8 sec 08/23/2024 6:48 AM GLUER MACHINE OPERATOR [facility] INR 1.0 0.9 - 1.1 08/23/2024 6:48 AM GLUER MACHINE OPERATOR [facility] Blood BLOOD SPECIMEN / Unknown Venipuncture / Unknown 08/23/2024 6:30 AM GLUER MACHINE OPERATOR 08/23/2024 6:37 AM GLUER MACHINE OPERATOR Narrative [facility] - 08/23/2024 6:48 AM GLUER MACHINE OPERATOR Conventional Warfarin Anticoagulant Therapy: INR Reference Range: 2.0-3.0 Intensive Warfarin Anticoagulant Therapy: INR Reference Range: 2.5-3.5 Frankie Calhoun DO LAB - COAGULATION OR DERABLES [facility] [address] [place] [address] * (ABNORMAL) CBC W AUTO DIFFERENTIAL (08/23/2024 6:30 AM [facility]) Only the most recent of55 resultswithin the time period is included. WBC 13.4(H) 4.0 - 10.7 x10E9/L 08/23/2024 [...] Unknown Venipuncture / Unknown 08/23/2024 6:30 AM GLUER MACHINE OPERATOR 08/23/2024 6:37 AM [facility] Frankie Calhoun DO LAB - HEMATOLOGY ORD ERABLES Performing Organization Address City/State/[facility] Co de Phone Number [facility] [address] [place], [place] [phone] * (ABNORMAL) COMPREHENSIVE METABOLIC PANEL (08/23/2024 6:30 AM [facility]) Only the most recent of51 resultswithin the time period is included. [facility] Signature Glucose 237(H) 70 - 99 mg/dL 08/23/2024 [...] Unknown Venipuncture / Unknown 08/23/2024 6:30 AM GLUER MACHINE OPERATOR 08/23/2024 6:35 AM [facility] Frankie Calhoun DO LAB - CHEMISTRY JAYME BRUNER [facility] [address] [place] [address] * EKG 12-LEAD (08/23/2024 6:08 AM [facility]) Only the most recent of15 resultswithin the time period is included. Ventricular Rate 71 BPM [facility] Atrial Rate 71 BPM [facility] P-R Interval 202 ms [facility] QRS Duration ms 94 ms [facility] Q-T Interval ms 450 ms [facility] QTC Calculation (Bezet) 489 ms [facility] Calculated P [place] 68 degrees [facility] Calculated R [place] -67 degrees [facility] Calculated T [place] -38 degrees [facility] Interpretation EKG NORMAL SINUS RHYTHM LEFT ANTERIOR FASCICULAR BLOCK MODERATE VOLTAGE CRITERIA FOR LVH, MAY BE NORMAL VARIANT ( R in aVL , Bighorn product ) SEPTAL INFARCT (CITED ON OR BEFORE 11-MAY-2021) ST & T WAVE ABNORMALITY, CONSIDER LATERAL ISCHEMIA ABNORMAL ECG WHEN COMPARED WITH ECG OF 10-DEC-2023 14:53, INVERTED T WAVES HAVE REPLACED NONSPECIFIC T WAVE ABNORMALITY IN INFERIOR LEADS T WAVE INVERSION NOW EVIDENT IN LATERAL LEADS Confirmed by DO HELTON STEPHANIE ([id number]) on 08/23/2024 9:36:12 PM [facility] 08/23/2024 6:08 AM GLUER MACHINE OPERATOR 08/23/2024 9:36 PM GLUER MACHINE OPERATOR Frankie Calhoun DO ECG ORDERABLES [facility] * T3 FREE (06/04/2024 9:42 AM GLUER MACHINE OPERATOR) Only the most recent of2 resultswithin the time period is included. T3 Free 2.8 2.0 - 4.4 pg/mL [facility] INSURANCE BILL Blood BLOOD SPECIMEN / Unknown 06/04/2024 9:42 AM GLUER MACHINE OPERATOR 06/04/2024 Narrative [facility] INSURANCE BILL - 06/05/2024 4:07 AM GLUER MACHINE OPERATOR Performed at: - [facility] [address] [place], [place] [id number] Fire Alarm Operator: Hay Loya PhD, Phone: [phone] Jones Walter LAW WRITER-PAINT DEPARTMENT SUPERVISOR LAB - CH EMISTRY ORDERABLES [facility] INSURANCE BILL [address] [place] [address] * TSH (06/04/2024 9:42 AM GLUER MACHINE OPERATOR) TSH 1.180 0.450 - 4.500 uIU/mL [facility] INSURANCE BILL Blood BLOOD SPECIMEN / Unknown 06/04/2024 9:42 AM GLUER MACHINE OPERATOR 06/04/2024 Narrative [facility] INSURANCE BILL - 06/05/2024 4:07 AM GLUER MACHINE OPERATOR Performed at: 01 - [address] [id number] Fire Alarm Operator: Hay Loya PhD, Phone: [phone] Darlenekangmyles HartDaniele Walter LAW WRITER-PAINT DEPARTMENT SUPERVISOR LAB - CH EMISTRY ORDERABLES Performing Organization Address City/[facility]/ZIP Co de Phone Number [facility] INSURANCE BILL [address] [place] [address] * T4 FREE (06/04/2024 9:42 AM GLUER MACHINE OPERATOR) T4 Free 1.14 0.82 - 1.77 ng/dL [facility] INSURANCE BILL Blood BLOOD SPECIMEN / Unknown 06/04/2024 9:42 AM GLUER MACHINE OPERATOR 06/04/2024 Narrative [facility] INSURANCE BILL - 06/05/2024 4:07 AM GLUER MACHINE OPERATOR Performed at: - [address] [id number] Fire Alarm Operator: Hay Loya PhD, Phone: [phone] Jigneshmyles Layton Walter LAW WRITER-PAINT DEPARTMENT SUPERVISOR LAB - CH EMISTRY ORDERABLES Performing Organization Address [facility] de Phone Number [facility] INSURANCE BILL [address] [place] [address] * (ABNORMAL) HEMOGLOBIN A1C - POINT OF CARE (AMB) (06/04/2024 9:04 AM GLUER MACHINE OPERATOR) Only the most recent of9 resultswithin the time period is included. Hemoglobin A1c POCT 8.0 % [facility] Expiration Date [id number] [facility] Lot # [id number] [facility] QC Verified Yes Yes [facility] Blood BLOOD SPECIMEN / Unknown 06/04/2024 9:04 AM GLUER MACHINE OPERATOR Jigneshmyles Layton Walter LAW WRITER-PAINT DEPARTMENT SUPERVISOR LAB - PO INT OF CARE ORDERABLES Performing Organization Address City/[facility]/ZIP Co de Phone Number [facility] [address] [phone] * (ABNORMAL) GLUCOSE - POINT OF CARE (AMB) ST[facility] (06/04/2024 8:59 AM GLUER MACHINE OPERATOR) Only the most recent of9 resultswithin the time period is included. Glucose 113(A) 60 - 100 mg/dL [facility] Lot # [id number] [facility] Expiration Date [facility] QC Verified Yes Yes [facility] Blood BLOOD SPECIMEN / Unknown 06/04/2024 8:59 AM GLUER MACHINE OPERATOR Jones Walter APRN-PAINT DEPARTMENT SUPERVISOR LAB - PO INT OF CARE ORDERABLES [facility] [phone] * IMMUNOFIXATION BLOOD (04/11/2024 11:04 AM CDT) Only the most recent of3 resultswithin the time period is included. Immunofixation Result Comment [facility] INSURANCE BILL Comment:No monoclonality det ected. IgG Quantitative 1,490 603 - 1,613 mg/dL [facility] INSURANCE BILL IgA Quantitative 273 61 - 437 mg/dL [facility] INSURANCE BILL IgM Quantitative 112 20 - 172 mg/dL [facility] INSURANCE BILL Blood BLOOD SPECIMEN / Unknown 04/11/2024 11:04 AM CDT 04/11/2024 Narrative [facility] INSURANCE BILL - 04/14/2024 3:08 PM CDT Performed at: [address] [place] [address] [place] [id number] Fire Alarm Operator: Hay Loya PhD, Phone: [phone] Darell Haji MD LAB - CHEMISTRY ORDERABLES [facility] INSURANCE BILL [address] [place] [address] * (ABNORMAL) KAPPA/LAMBDA LITE CHAIN FREE PANEL (04/11/2024 11:04 AM CDT) Only the most recent of2 resultswithin the time period is included. Free Loomis Light Chains 52.6(H) 3.3 - 19.4 mg/L [facility] INSURANCE BILL Free Lambda Light Chains 29.7(H) 5.7 - 26.3 mg/L [facility] INSURANCE BILL Loomis/Lambda Ratio 1.77(H) 0.26 - 1.65 [facility] INSURANCE BILL Blood BLOOD SPECIMEN / Unknown 04/11/2024 11:04 AM CDT 04/11/2024 Narrative [facility] INSURANCE BILL - 04/14/2024 3:08 PM CDT Performed at: [address] [place] [id number] Fire Alarm Operator: Hay Loya PhD, Phone: [phone] Darell Haji MD LAB - CHEMISTRY ORDERABLES [facility] INSURANCE BILL [address] [place] [address] * ECHO COMPLETE (04/11/2024 11:00 AM CDT) Pathologist [facility] LA vol index 0.039 l/m [facility] CV FUJI PACS Myocardial strain charge 1 unitless [facility] CV FUJI PACS GLS -17.5 % [facility] FUJ I PACS IVSd 2D 1.536 cm [facility] FUJ I PACS LVIDd 4.039 cm SSM CV FUJ I PACS LVIDs 2.785 cm [facility] CV FUJ I PACS LVOT diam 2.061 cm SSM CV FUJ I PACS LVPWd 1.449 cm [facility]SM CV FUJ I PACS LV biplane EF 71.006 % [facility]UJ[facility] PACS LV A2C EF 69.778 % SSM CV FUJ I PACS LV A4C EF 70.267 % SSM CV FUJ I PACS LV EDV A2C 71.334 ml SSM CV FU JI PACS LV EDV A4C 70.989 ml SSM CV FU JI PACS LV ESV A2C 21.559 ml SSM CV FU JI PACS LV ESV A4C 21.107 ml SSM CV FU JI PACS LVOT pk nagi 99.284 cm/s SSM CV F UJI PACS LVOT VTI 25.406 cm [facility] FUJ I PACS LA size 4.006 cm [facility] I PACS LA vol BP 82.403 ml [facility] I PACS RA area 15.293 cm [facility] PACS AV mn grad 2.432 mmHg SSM CV FU JI PACS AV pk nagi 109.267 cm/s SSM CV FUJ I PACS AV VTI 26.325 cm SSM CV FUJ I PACS MV A pk nagi 78.235 cm/s SSM CV F UJI PACS MV E pk nagi 43.132 cm/s SSM CV F UJI PACS MV E' lateral nagi 8.377 cm/s SSM CV FUJI PACS TAPSE 1.787 cm SSM CV FUJ I PACS TR pk nagi 144.369 cm/s SSM CV FUJ I PACS Ascending aorta 4.007 cm SSM CV FUJI PACS IVC Diam Expiration 1.634 cm SSM CV FUJI PACS Anatomical Region Laterality Modality Ultrasound 04/11/2024 10:4 3 AM CDT Narrative 04/11/2024 6:01 PM CDT Summary * The left ventricle is normal in size with normal systolic function and an estimated ejection fraction of > 70% by visual estimate. Left ventricular wall motion is normal. * The left ventricular diastolic function is consistent with grade I diastolic dysfunction. * Left ventricular wall thickness is moderately increased. * Right ventricle is normal in size with normal systolic function. * The left atrium is mildly dilated with a left atrial volume index of 39 ml/m2 by BP MOD. * There is mild mitral valve regurgitation. * No pulmonary hypertension, estimated pulmonary arterial systolic pressure is 11 mmHg. * The ascending aorta is mildly dilated at 4.0 cm. * Global longitudinal strain of the left ventricle is normal at -17.5 %. Pattern also not consistent with amyloidosis or HCM. Patient Info Name: Hussain A Boise Age: 68 years : 1955 Gender: Male Ht: 72 in Wt: 192 lb BSA: 2.11 m2 HR: 59 bpm BP: 156 / 80 mmHg Exam Date: 04/11/2024 10:43 AM Patient Status: O/P Study Site: [facility] Primary Location: [facility] EStudy Info Technical Quality: Good Exam Type: ECHO COMPLETE Indications I42.1 - Hypertrophic obstructive cardiomyopathy (HOCM) (HCC) Procedure(s) * A complete 2D, color Doppler, spectral Doppler, and M-Mode transthoracic echocardiogram was performed. * Parasternal long axis, Parasternal short axis, Apical 4 chamber view, Apical 2 chamber view, Subcostal 4 chamber view and Suprasternal view(s) obtained during the procedure. * Strain imaging performed per cardiology department protocol to evaluate and/or monitor myocardial function. Staff Referring Physician: Darell Haji Ordering Provider: Darell Haji Attending Physician: Darell Haji Warehouse Selector: Kamille Calixto Left Ventricle The left ventricle is normal in size. Left ventricular systolic function is normal with an estimated ejection fraction of > 70% by visual estimate. Left ventricular segmental wall motion is normal. The left ventricular diastolic function is consistent with grade I diastolic dysfunction. Left ventricular wall thickness is moderately increased. Global longitudinal strain of the left ventricle is normal at -17.5 %. Pattern also not consistent with amyloidosis or HCM. Right Ventricle The right ventricle is normal in size. Right ventricular systolic function is normal. Left Atrium The left atrium is mildly dilated with a left atrial volume index of 39 ml/m2 by BP MOD. Right Atrium The right atrium is normal in size. Atrial Septum Intact interatrial septum visualized by 2D and color Doppler imaging. Aortic Valve The aortic valve is trileaflet. There is no aortic valve stenosis. There is no aortic valve regurgitation. Pulmonic Valve The pulmonic valve is normal. There is no pulmonic regurgitation. Mitral Valve The mitral valve is normal. There is no mitral valve stenosis. There is mild mitral valve regurgitation. Tricuspid Valve The tricuspid valve is normal. There is trace tricuspid valve regurgitation. No pulmonary hypertension, estimated pulmonary arterial systolic pressure is 11 mmHg. Inferior Vena Cava The inferior vena cava is normal in size (< 2.1 cm). Pericardium/Pleural There is no pericardial effusion. Aorta The aortic root at the sinus of Valsalva is normal in size. The ascending aorta is mildly dilated at 4.0 cm. Measurements Left Ventricular Outflow Tract Name Value Normal LVOT 2D LVOT Diameter 2.1 cm LVOT Area 3.3 cm2 LVOT Doppler LVOT Peak Velocity 1.0 m/s LVOT Peak Gradient 4 mmHg LVOT Mean Velocity 75.86 cm/s LVOT Mean Gradient 3 mmHg LVOT VTI 25.4 cm LVOT VTI/AV VTI Ratio 1.0 LVOT Stroke Volume 85 ml LVOT Stroke Volume Index 40 ml/m2 35-58 LVOT CO 5.0 l/min LVOT CI 2.4 l/min/m2 Pulmonic Valve Name Value Normal PV Doppler PV Accel Time 121.79 ms Mitral Valve Name Value Normal MV Doppler MV PHT 115 ms MV Area (PHT) 1.91 cm2 4.00-5.00 MV Diastolic Function MV E Peak Velocity 0.4 m/sec MV A Peak Velocity 0.8 m/sec MV E/A 0.6 MV Decel Time (PW) 397 ms MV Annular TDI MV Septal e' Velocity 5 cm/s >=8 MV E/e' (Septal) 9 <=8 MV Lateral e' Velocity 8 cm/s >=10 MV E/e' (Lateral) 5 <=8 MV e' Average 7 cm/s MV E/e' (Average) 7 Tricuspid Valve Name Value Normal TV Regurgitation Doppler TR Peak Velocity 1.4 m/s TR Peak Gradient 8 mmHg Estimated PAP/RSVP RA Pressure 3 mmHg <=5 PA Systolic Pressure 11 mmHg <35 RV Systolic Pressure 11 mmHg <36 TV Diastolic Function TV E Peak Velocity 0.8 m/sec TV Annular TDI TV Lateral Neyda s' Velocity 7 cm/s 10-19 Aorta Name Value Normal Ascending Aorta Ao Root Diameter (2D) 3.6 cm Ao Root Diam Index (2D) 1.7 cm/m2 Asc Ao Diameter 4.0 cm 2.2-3.8 Asc Ao Diameter Index 1.9 cm/m2 1.1-1.9 Venous Name Value Normal IVC/SVC IVC Diameter 1.6 cm <=2.1 Aortic Valve Name Value Normal AV 2D/MM AV Cusp Separation (2D) 2.1 cm AV Doppler AV Peak Velocity 1.09 m/s AV Peak Gradient 5 mmHg AV Mean Gradient 2 mmHg AV VTI 26 cm AV Area (Cont Eq VTI) 3.22 cm2 >=2.00 AV Area (Cont Eq Angi) 3.03 cm2 AV DI (VTI) 0.97 AV DI (Nagi) 0.91 AV Regurgitation 2D LVOT Area 3.34 cm2 Ventricles Name Value Normal LV Dimensions 2D/MM IVS Diastolic Thickness (2D) 1.5 cm 0.6-1.0 LVID Diastole (2D) 4.0 cm 4.2-5.8 LVPW Diastolic Thickness (2D) 1.4 cm 0.6-1.0 LVID Systole (2D) 2.8 cm 2.5-4.0 LV Mass (2D Cubed) 234 g 88-224 LV Mass Index (2D Cubed) 111 g/m2 49-115 Relative Wall Thickness (2D) 0.72 <=0.42 LV Fractional Shortening/Ejection Fraction 2D/MM LV Fractional Shortening (2D) 31 % 25-43 LV EF (2D Teicholz) 59 % 52-72 LV Diastolic Volume (4C MOD) 71 ml LV EF (4C MOD) 70 % LV Diastolic Volume (2C MOD) 71 ml LV EF (2C MOD) 70 % LV Diastolic Volume (BP MOD) 73 ml 62-150 LV Diastolic Volume Index (BP MOD) 34 ml/m2 34-74 LV Systolic Volume (BP MOD) 21 ml 21-61 LV Systolic Volume Index (BP MOD) 10 ml/m2 11-31 LV EF (BP MOD) 71 % 52-72 LV Diastolic Length (4C) 8.4 cm LV Systolic Length (4C) 7.4 cm LV Stroke Volume (4C MOD) 50 ml LV Global Longitudinal Strain -18 % RV Dimensions 2D/MM TAPSE 1.8 cm >=1.7 Atria Name Value Normal LA Dimensions LA Dimension (2D) 4.0 cm 3.0-4.1 LA Dimen Index (2D) 1.9 cm/m2 LA Volume (BP MOD) 82 ml LA Volume Index (BP MOD) 39 ml/m2 16-34 RA Dimensions RA Area (4C) 15 cm2 <=18 RA Area (4C) Index 7 cm2/m2 RA ESV (4C MOD) 35 ml 18-32 RA ESV Index (4C MOD) 17 ml/m2 16-34 EchoPAC Name Value Normal FARAZ AA peak sys SL (AWMA) -28.0 % AAS peak sys SL (AWMA) -18.7 % AI peak sys SL (AWMA) -31.0 % AL peak sys SL (AWMA) -23.4 % AP peak sys SL (AWMA) -13.6 % peak sys SL (AWMA) -27.8 % AVC (AWMA) 409 ms BA peak sys SL (AWMA) -11.4 % BAS peak sys SL (AWMA) -9.0 % BI peak sys SL (AWMA) -15.5 % BL peak sys SL (AWMA) -12.7 % BP peak sys SL (AWMA) -22.8 % BS peak sys SL (AWMA) -9.4 % G peak SL(A2C) (AWMA) -19.4 % G peak SL(A4C) (AWMA) -17.6 % G peak SL(APLAX) (AWMA) -15.5 % G peak SL(Avg) (AWMA) -17.5 % MA peak sys SL (AWMA) -13.9 % MAS peak sys SL (AWMA) -17.9 % GA peak sys SL (AWMA) -17.2 % ML peak sys SL (AWMA) -14.5 % MP peak sys SL (AWMA) -14.1 % MS peak sys SL (AWMA) -17.2 % Report Signatures Finalized by Darell Haji on 04/11/2024 06:01 PM Procedure Note Darell Haji MD - 04/11/2024 Summary * The left ventricle is normal in size with normal systolic function andan estimated ejection fraction of > 70% by visual estimate. Left ventricularwall motion is normal. * The left ventricular diastolic function is consistent with grade I diastolic dysfunction. * Left ventricular wall thickness is moderately increased. * Right ventricle is normal in size with normal systolic function. * The left atrium is mildly dilated with a left atrial volume index of39 ml/m2 by BP MOD. * There is mild mitral valve regurgitation. * No pulmonary hypertension, estimated pulmonary arterial systolicpressure is 11 mmHg. * The ascending aorta is mildly dilated at 4.0 cm. * Global longitudinal strain of the left ventricle is normal at -17.5%. Pattern also not consistent with amyloidosis or HCM. Patient Info Name: Hussain Thurston Boise Age: 68 years : 1955 Gender: Male Ht: 72 in Wt: 192 lb BSA: 2.11 m2 HR: 59 bpm BP: 156 / 80 mmHg Exam Date: 04/11/2024 10:43 AM Patient Status: O/P Study Site: [facility] Primary Location: [facility] EStudy Info Technical Quality: Good Exam Type: ECHO COMPLETE Indications I42.1 - Hypertrophic obstructive cardiomyopathy (HOCM) ([facility]) Procedure(s) * A complete 2D, color Doppler, spectral Doppler, and M-Modetransthoracic echocardiogram was performed. * Parasternal long axis, Parasternal short axis, Apical 4 chamberview, Apical 2 chamber view, Subcostal 4 chamber view and Suprasternal view(s) obtained during the procedure. * Strain imaging performed per cardiology department protocol toevaluate and/or monitor myocardial function. Staff Referring Physician: Darell Haji Ordering Provider: Darell Haji Attending Physician: Darell Haji Warehouse Selector: Kamille Calixto Left Ventricle The left ventricle is normal in size. Left ventricular systolic functionis normal with an estimated ejection fraction of > 70% by visual estimate.Left ventricular segmental wall motion is normal. The left ventriculardiastolic function is consistent with grade I diastolic dysfunction. Leftventricular wall thickness is moderately increased. Global longitudinal strain of theleft ventricle is normal at -17.5 %. Pattern also not consistent withamyloidosis or HCM. Right Ventricle The right ventricle is normal in size. Right ventricular systolicfunction is normal. Left Atrium The left atrium is mildly dilated with a left atrial volume index of39 ml/m2 by BP MOD. Right Atrium The right atrium is normal in size. Atrial Septum Intact interatrial septum visualized by 2D and color Doppler imaging. Aortic Valve The aortic valve is trileaflet. There is no aortic valve stenosis. Thereis no aortic valve regurgitation. Pulmonic Valve The pulmonic valve is normal. There is no pulmonic regurgitation. Mitral Valve The mitral valve is normal. There is no mitral valve stenosis. There ismild mitral valve regurgitation. Tricuspid Valve The tricuspid valve is normal. There is trace tricuspid valveregurgitation. No pulmonary hypertension, estimated pulmonary arterial systolic pressureis 11 mmHg. Inferior Vena Cava The inferior vena cava is normal in size (< 2.1 cm). Pericardium/Pleural There is no pericardial effusion. Aorta The aortic root at the sinus of Valsalva is normal in size. Theascending aorta is mildly dilated at 4.0 cm. Measurements Left Ventricular Outflow Tract Name Value Normal LVOT 2D LVOT Diameter 2.1 cm LVOT Area 3.3 cm2 LVOT Doppler LVOT Peak Velocity 1.0 m/s LVOT Peak Gradient 4 mmHg LVOT Mean Velocity 75.86 cm/s LVOT Mean Gradient 3 mmHg LVOT VTI 25.4 cm LVOT VTI/AV VTI Ratio 1.0 LVOT Stroke Volume 85 ml LVOT Stroke Volume Index 40 ml/m2 35-58 LVOT CO 5.0 l/min LVOT CI 2.4 l/min/m2 Pulmonic Valve Name Value Normal PV Doppler PV Accel Time 121.79 ms Mitral Valve Name Value Normal MV Doppler MV PHT 115 ms MV Area (PHT) 1.91 cm2 4.00-5.00 MV Diastolic Function MV E Peak Velocity 0.4 m/sec MV A Peak Velocity 0.8 m/sec MV E/A 0.6 MV Decel Time (PW) 397 ms MV Annular TDI MV Septal e' Velocity 5 cm/s >=8 MV E/e' (Septal) 9 <=8 MV Lateral e' Velocity 8 cm/s >=10 MV E/e' (Lateral) 5 <=8 MV e' Average 7 cm/s MV E/e' (Average) 7 Tricuspid Valve Name Value Normal TV Regurgitation Doppler TR Peak Velocity 1.4 m/s TR Peak Gradient 8 mmHg Estimated PAP/RSVP RA Pressure 3 mmHg <=5 PA Systolic Pressure 11 mmHg <35 RV Systolic Pressure 11 mmHg <36 TV Diastolic Function TV E Peak Velocity 0.8 m/sec TV Annular TDI TV Lateral Neyda s' Velocity 7 cm/s 10-19 Aorta Name Value Normal Ascending Aorta Ao Root Diameter (2D) 3.6 cm Ao Root Diam Index (2D) 1.7 cm/m2 Asc Ao Diameter 4.0 cm 2.2-3.8 Asc Ao Diameter Index 1.9 cm/m2 1.1-1.9 Venous Name Value Normal IVC/SVC IVC Diameter 1.6 cm <=2.1 Aortic Valve Name Value Normal AV 2D/MM AV Cusp Separation (2D) 2.1 cm AV Doppler AV Peak Velocity 1.09 m/s AV Peak Gradient 5 mmHg AV Mean Gradient 2 mmHg AV VTI 26 cm AV Area (Cont Eq VTI) 3.22 cm2 >=2.00 AV Area (Cont Eq Nagi) 3.03 cm2 AV DI (VTI) 0.97 AV DI (Nagi) 0.91 AV Regurgitation 2D LVOT Area 3.34 cm2 Ventricles Name Value Normal LV Dimensions 2D/MM IVS Diastolic Thickness (2D) 1.5 cm 0.6-1.0 LVID Diastole (2D) 4.0 cm 4.2-5.8 LVPW Diastolic Thickness (2D) 1.4 cm 0.6-1.0 LVID Systole (2D) 2.8 cm 2.5-4.0 LV Mass (2D Cubed) 234 g 88-224 LV Mass Index (2D Cubed) 111 g/m2 49-115 Relative Wall Thickness (2D) 0.72 <=0.42 LV Fractional Shortening/Ejection Fraction 2D/MM LV Fractional Shortening (2D) 31 % 25-43 LV EF (2D Teicholz) 59 % 52-72 LV Diastolic Volume (4C MOD) 71 ml LV EF (4C MOD) 70 % LV Diastolic Volume (2C MOD) 71 ml LV EF (2C MOD) 70 % LV Diastolic Volume (BP MOD) 73 ml 62-150 LV Diastolic Volume Index (BP MOD) 34 ml/m2 34-74 LV Systolic Volume (BP MOD) 21 ml 21-61 LV Systolic Volume Index (BP MOD) 10 ml/m2 11-31 LV EF (BP MOD) 71 % 52-72 LV Diastolic Length (4C) 8.4 cm LV Systolic Length (4C) 7.4 cm LV Stroke Volume (4C MOD) 50 ml LV Global Longitudinal Strain -18 % RV Dimensions 2D/MM TAPSE 1.8 cm >=1.7 Atria Name Value Normal LA Dimensions LA Dimension (2D) 4.0 cm 3.0-4.1 LA Dimen Index (2D) 1.9 cm/m2 LA Volume (BP MOD) 82 ml LA Volume Index (BP MOD) 39 ml/m2 16-34 RA Dimensions RA Area (4C) 15 cm2 <=18 RA Area (4C) Index 7 cm2/m2 RA ESV (4C MOD) 35 ml 18-32 RA ESV Index (4C MOD) 17 ml/m2 16-34 EchoPAC Name Value Normal FARAZ AA peak sys SL (AWMA) -28.0 % AAS peak sys SL (AWMA) -18.7 % AI peak sys SL (AWMA) -31.0 % AL peak sys SL (AWMA) -23.4 % AP peak sys SL (AWMA) -13.6 % peak sys SL (AWMA) -27.8 % AVC (AWMA) 409 ms BA peak sys SL (AWMA) -11.4 % BAS peak sys SL (AWMA) -9.0 % BI peak sys SL (AWMA) -15.5 % BL peak sys SL (AWMA) -12.7 % BP peak sys SL (AWMA) -22.8 % BS peak sys SL (AWMA) -9.4 % G peak SL(A2C) (AWMA) -19.4 % G peak SL(A4C) (AWMA) -17.6 % G peak SL(APLAX) (AWMA) -15.5 % G peak SL(Avg) (AWMA) -17.5 % MA peak sys SL (AWMA) -13.9 % MAS peak sys SL (AWMA) -17.9 % GA peak sys SL (AWMA) -17.2 % ML peak sys SL (AWMA) -14.5 % MP peak sys SL (AWMA) -14.1 % MS peak sys SL (AWMA) -17.2 % Report Signatures Finalized by Darell Haji on 04/11/2024 06:01 PM Darell Haji MD ECHO CUPID * FL ESOPHAGRAM (02/12/2024 12:02 PM CDT) Only the most recent of3 resultswithin the time period is included. Anatomical Region Laterality Modality Chest Radiographic Lázaro ging 02/12/2024 3:08 PM CDT Impressions 02/12/2024 3:37 PM CDT IMPRESSION: 1.Mild narrowing of the distal esophagus at the fundoplication with failure of the 13 mm barium tablet to pass through this region. 2.Irregular contour of the distal esophagus consistent with inflammation/superficial ulceration. 3.Enlarged gastric rugal folds of the proximal stomach, presumed inflammatory given recent EGD on 11/01/2023. > Interpreting Provider: Julia Kinsey MD on 02/12/2024 3:37 PM Narrative 02/12/2024 3:37 PM CDT PROCEDURE: FL ESOPHAGRAM DATE/TIME OF EXAM: 02/12/2024 12:11 PM CLINICAL INFORMATION: None relevant/not provided if blank. Indication: K44.9: Hiatal hernia Additional History: Laparoscopic hiatal hernia repair with toupee fundoplication on 12/20/2023 COMPARISON: None. TECHNIQUE: Single and double contrast technique. Fluoroscopic and overhead imaging. FLUOROSCOPY DOSE: 145.1 mGy Reference air kerma (ka,r). FINDINGS: Swallowing is normal. There is no aspiration. Mild esophageal dysmotility is evident with incomplete clearance and mild tertiary contractions. Mild irregularity of the distal esophageal contour may indicate inflammation/superficial ulceration. No esophageal mass is demonstrated. Deformity of the proximal stomach is consistent with the history of fundoplication. No hiatal hernia is evident. No gastroesophageal reflux was observed with or without provocative maneuvers. Limited images of the stomach show large rugal folds of the fundus and proximal gastric body. There is mild deformity of the gastric antrum and pylorus concerning for inflammation. The patient swallowed a 13 mm barium tablet which failed to pass through the distal esophagus during 8 minutes of intermittent observation and ingestion of 2 cups of water. A duodenal diverticulum is seen in the third segment. Procedure Note Julia Kinsey MD - 02/12/2024 PROCEDURE: FL ESOPHAGRAM DATE/TIME OF EXAM: 02/12/2024 12:11 PM CLINICAL INFORMATION: None relevant/not provided if blank. Indication: K44.9: Hiatal hernia Additional History: Laparoscopic hiatal hernia repair with toupee fundoplication on 12/20/2023 COMPARISON: None. TECHNIQUE: Single and double contrast technique. Fluoroscopic and overhead imaging. FLUOROSCOPY DOSE: 145.1 mGy Reference air kerma (ka,r). FINDINGS: Swallowing is normal. There is no aspiration. Mild esophagealdysmotility is evident with incomplete clearance and mild tertiary contractions.Mild irregularity of the distal esophageal contour may indicate inflammation/superficial ulceration. No esophageal mass is demonstrated. Deformity of the proximal stomach is consistent with the history of fundoplication. No hiatal hernia is evident. No gastroesophageal refluxwas observed with or without provocative maneuvers. Limited images of the stomach show large rugal folds of the fundus and proximal gastric body. There is mild deformity of the gastric antrum and pylorus concerning for inflammation. The patient swallowed a 13 mmbarium tablet which failed to pass through the distal esophagus during 8minutes of intermittent observation and ingestion of 2 cups of water. A duodenal diverticulum is seen in the third segment. IMPRESSION: 1.Mild narrowing of the distal esophagus at the fundoplication withfailure of the 13 mm barium tablet to pass through this region. 2.Irregular contour of the distal esophagus consistent with inflammation/superficial ulceration. 3.Enlarged gastric rugal folds of the proximal stomach, presumed inflammatory given recent EGD on 11/01/2023. > Interpreting Provider: Julia Kinsey MD on 02/12/2024 3:37 PM Katty Guevara LAW WRITER-[employer] SUPERVISOR FLUOROSCOPY ORDER SCARLETT * CARDIAC RHYTHM STRIP ORDER (12/26/2023 3:10 AM CDT) Only the most recent of14 resultswithin the time period is included. Narrative 12/26/2023 3:10 AM CDT Ordered by an unspecified provider. Scanned Document CARDIAC SERVICES ORD ERABLES * (ABNORMAL) GLUCOSE - POINT OF CARE (12/24/2023 7:54 AM CDT) Only the most recent of269 resultswithin the time period is included. [facility] Glucose WB/POC 166(H) 70 - 106 mg/dL 12/24/2023 8:04 AM CDT [facility] Specimen Type Cap Fingerstick 2023 8:04 AM CDT [facility] Blood BLOOD SPECIMEN / Unknown 12/24/2023 7:54 AM CDT 12/24/2023 8:04 AM CDT Josey Padilla MD LAB - POINT OF CARE ORDERABLES Performing Organization Address City/State/[facility] Co de Phone Number [facility] [address] [place] [address] * (ABNORMAL) CBC W/O DIFFERENTIAL (12/24/2023 2:49 AM CDT) Only the most recent of26 resultswithin the time period is included. [facility] WBC 6.3 4.0 - 10.7 x10E9/L 12/24/2023 3:23 AM CDT [facility] RBC Count 3.37(L) 4.30 - 5.80 x10E12/L 12/24/2023 3:23 AM CDT [facility] Hemoglobin 9.0(L) 13.3 - 17.5 g/dL 12/24/2023 3:23 AM T [facility] Hematocrit 28.3(L) 38.7 - 51.1 % 12/24/2023 3:23 AM CDT [facility] MCV 84.0 80.0 - 98.0 fL 12/24/2023 3:23 AM CDT [facility] MCH 26.7 26.7 - 33.6 pg 12/24/2023 3:23 AM CDT [facility] MCHC 31.8 31.7 - 36.3 g/dL 12/24/2023 3:23 AM CDT [facility] RDW-CV 14.6 11.3 - 14.8 % 12/24/2023 3:23 AM CDT [facility] Platelet Count 259 150 - 420 x10E9/L 12/24/2023 3:23 AM CDT [facility] MPV 9.0 7.8 - 11.4 fL 12/24/2023 3:23 AM CDT [facility] Blood BLOOD SPECIMEN / Unknown Lab Venipuncture / Unknown 12/24/2023 2:49 AM CDT 12/24/2023 3:12 AM CDT Josey Padilla MD LAB - HEMATOLOGY ORD ERABLES [facility] [address] [place] [address] * (ABNORMAL) RENAL FUNCTION PANEL (12/21/2023 4:21 AM CDT) Only the most recent of17 resultswithin the time period is included. Glucose 170(H) 70 - 105 mg/dL 12/21/2023 5:26 AM [facility] Sodium 133(L) 136 - 145 mmol/L 12/21/2023 5:26 AM [facility] Potassium 4.1 3.5 - 5.1 mmol/L 12/21/2023 5:26 AM [facility] Chloride 97(L) 98 - 107 mmol/L 12/21/2023 5:26 AM [facility] CO2 29 22 - 29 mmol/L 12/21/2023 5:26 AM [facility] Calcium 8.7 8.4 - 10.4 mg/dL 12/21/2023 5:26 AM [facility] Anion Gap 7 6 - 16 mmol/L 12/21/2023 5:26 AM CDT [facility] BUN 15 7 - 26 mg/dL 12/21/2023 5:26 AM [facility] Creatinine 1.61(H) 0.72 - 1.25 mg/dL 12/21/2023 5:26 AM CDT [facility] Albumin 2.7(L) 3.4 - 5.0 gm/dL 12/21/2023 5:26 AM CDT [facility] Phosphorus 2.6 2.3 - 4.7 mg/dL 12/21/2023 5:26 AM CDT [facility] eGFR by CKD-EPI 46(L) >=90 mL/min/1.7 3 m2 12/21/2023 5:26 AM CDT [facility] Blood BLOOD SPECIMEN / Unknown Lab Venipuncture / Unknown 12/21/2023 4:21 AM CDT 12/21/2023 4:46 AM CDT Josey Padilla MD LAB - CHEMISTRY JAYME BRUNER [facility] Organization Address City/State/ZIP Co de Phone Number [facility] [address] [place] [address] * XR CHEST 1VW PORTABLE (12/20/2023 11:55 AM CDT) Only the most recent of13 resultswithin the time period is included. Anatomical Region Laterality Modality Chest Radiographic Lázaro ging 12/20/2023 12:0 8 PM CDT Impressions 12/20/2023 12:09 PM CDT IMPRESSION: No acute process. No suspicious interval changes. > Interpreting Provider: Barry Gonzalez MD on 12/20/2023 12:09 PM Narrative 12/20/2023 12:09 PM CDT PROCEDURE: XR CHEST 1VW PORTABLE DATE/TIME OF EXAM: 12/20/2023 12:06 PM CLINICAL INFORMATION: None relevant/not provided if blank. Indication: K21.00: Gastro-esophageal reflux disease with esophagitis, without bleeding CHEST, ONE VIEW AP PORTABLE HISTORY: K21.00: Gastro-esophageal reflux disease with esophagitis, without bleeding COMPARISON: 12/09/2023 at 6:50 AM. FINDINGS: The postsurgical changes are not radiographically evident on this view. There is no evidence of pneumoperitoneum. The lung volumes are symmetrically low suggestive of a poor inspiratory effort. This accounts for crowding of bronchovascular markings. The heart size is normal. The mediastinal silhouette appears mildly widened but aortic outflow tract, due to patient's position and low lung volume. The pulmonary vasculature is within normal limits. The lungs are clear. There is no evidence of pleural effusion. No pneumothorax is seen. Procedure Note Barry Gonzalez MD - 12/20/2023 PROCEDURE: XR CHEST 1VW PORTABLE DATE/TIME OF EXAM: 12/20/2023 12:06 PM CLINICAL INFORMATION: None relevant/not provided if blank. Indication: K21.00: Gastro-esophageal reflux disease with esophagitis, without bleeding CHEST, ONE VIEW AP PORTABLE HISTORY: K21.00: Gastro-esophageal reflux disease with esophagitis,without bleeding COMPARISON: 12/09/2023 at 6:50 AM. FINDINGS: The postsurgical changes are not radiographically evident on this view. There is no evidence of pneumoperitoneum. The lung volumes are symmetrically low suggestive of a poor inspiratory effort. This accounts for crowding of bronchovascular markings. The heart size is normal. The mediastinal silhouette appears mildly widened but aortic outflow tract,due to patient's position and low lung volume. The pulmonary vasculature is within normal limits. The lungs are clear. There is no evidence ofpleural effusion. No pneumothorax is seen. IMPRESSION: No acute process. No suspicious interval changes. > Interpreting Provider: Barry Gonzalez MD on 12/20/2023 12:09 PM Josey Padilla MD DIAGNOSTIC IMAGING O RDERABLES * PATHOLOGY TISSUE EXAM (STL) (12/20/2023 10:10 AM CDT) Only the most recent of8 resultswithin the time period is included. Case Report Surgical Pathology Report Case: [id number] Authorizing Provider: Loc Su MD Collected: 12/20/2023 10:10 AM Ordering Location: [address] [place] [address]. Received: 12/20/2023 11:49 AM [facility] Pathologist: Paras Jama MD Specimens: A) - Soft Tissue, ge junctin fat pad B) - Polyp, gej polp 12/21/2023 5:33 PM CDT [facility] Final Diagnosis Gastroesophageal junction fat pad: - Lymph node fragments negative for metastasis - Unremarkable adjacent vascular fibroadipose tissue Gastroesophageal junction polyp, biopsy: - Ulcer with mixed inflammation - Scant detached squamous epithelium negative for dysplasia or carcinoma - No fungi identified 12/21/2023 5:33 PM [facility] Clinical History 68-year-old male with GERD and hiatal hernia 12/21/2023 5:33 PM [facility] Gross Description The specimens are identified with the patient's name and date of . A. Received in formalin, specimen A, GE junction fat pad is a 5.5 x 2.3 x 1 cm pink-yellow soft tissue. Multiple probable nodes are identified (0.1-1.3 cm in greatest dimension). Local Government Legislator sections are submitted as follows: A1-A2 - One bisected node in each cassette, A3 - Adipose tissue B. Received in saline, specimen B, GEJ polyp are are multiple white to cardoza-hu tissues (0.1-0.5 cm in greatest dimension and 1 x 0.2 x 0.1 cm in aggregate). Entirely submitted in cassette B1. 12/21/2023 5:33 PM [facility] Microscopic Description Microscopic examination substantiates the diagnosis above. PAS-F staining is performed on a section of block B1 with appropriate control. No fungi are highlighted. 12/21/2023 5:33 PM [facility] Pathologist Location at [facility] 12/21/2023 5:33 PM [facility] Disclaimer All histochemical and/or immunohistochemical results are interpreted with controls that demonstrate appropriate staining reactions before reporting results. Note on use of immunocytochemistry reagents: This test was developed and its performance characteristic determined by [facility], Department of Laboratory Medicine. It has not been cleared or approved by the U.S. Food and Drug Administration (FDA). The FDA has determined that such clearance or approval is not necessary. The test is used for clinical purpose. It should not be regarded as investigational or for research. This laboratory is certified to perform high complexity testing. The performance characteristics of the IHC/EUGENIO assays have been validated on formalin-fixed paraffin embedded tissues only. The assays have not been validated on decalcified tissues. Results should be interpreted with caution. 12/21/2023 5:33 PM [facility] Embedded Images 12/21/2023 5:33 PM CDT [facility] Pathology/Cytology SOFT TISSUE BIOPSY SPECIMEN / Unknown 12/20/2023 10:10 AM CDT 12/20/2023 11:49 AM CDT Comment:Pre-op diagnosis: Gastroesophageal reflux disease with esophagitis without hemorrhage [K21.00] Miscellaneous samples (specimen) POLYP / Unknown 12/20/2023 10:20 AM CDT 12/20/2023 11:49 AM CDT Comment:Pre-op diagnosis: Gastroesophageal reflux disease with esophagitis without hemorrhage [K21.00] Loc Su MD LAB - PATHOLOGY/CYTO LOGY ORDERABLES Performing Organization Address City/State/[facility] Co de Phone Number [facility] [address] [place] [address] * ETT LINE PERFORMABLE (12/20/2023 8:17 AM CDT) Narrative Steffen Avila APRN-CRNA - 12/20/2023 8:17 AM CDT Steffen Avila APRN-CRNA 12/20/2023 8:19 AM Endotracheal Tube Placement: Patient Location: OR. Intubation Event Date/Time: 12/20/2023 7:48 AM Procedure: intubation (38383). Procedure Section: Sedation: under general anesthesia. Indications for Airway Management: anesthesia Induction: rapid sequence Patient Position: supine Blade Type: Hunter Blade Size: 4 Laryngoscopy View: grade 1 (full cords) Intubation Adjuncts: stylet and cricoid pressure Tube: endotracheal tube Placement: oral Tube type: cuff - inflated Tube Size (MM): 8 Depth of Insertion (CM): 21 Measured From: teeth Cuff volume (mL): 4 Cuff Inflated With: air Number of Attempts: 1. Placement Verified By: direct visualization, bilateral breath sounds, chest auscultation and CO2 monitor Tube secured with: adhesive tape. Dentition unchanged? Yes Difficult Airway? No. Procedure Start Time: 12/20/2023 7:48 AM. Procedure End Time: 12/20/2023 7:49 AM. Procedure Total Time: 1 minutes. Staff Section Anesthesia Provider: Steffen Avila APRN-CRNA, Performed the procedure Davin R Greta DO GENERAL ANESTHESIA O RDERABLES * MAGNESIUM BLOOD (12/20/2023 5:37 AM CDT) Only the most recent of44 resultswithin the time period is included. Pathologist [facility] Magnesium 1.9 1.6 - 2.6 mg/dL 12/20/2023 6:03 AM CDT [facility] Blood BLOOD SPECIMEN / Unknown Venipuncture / Unknown 12/20/2023 5:37 AM CDT 12/20/2023 5:45 AM CDT Josey Padilla MD LAB - CHEMISTRY ORDE RABSANTOS Performing Organization Address City/[facility] Co de Phone Number [facility] [address] [place] [address] * TYPE + SCREEN PANEL (12/19/2023 4:09 PM CDT) Only the most recent of7 resultswithin the time period is included. [facility] ABO Rh O NEG 12/19/2023 5:02 PM CDT [facility] Comment:History checked. Antibody Screen NEG 5:02 PM CDT [facility] Blood Bank BLOOD SPECIMEN / Unknown Lab Venipuncture / Unknown 12/19/2023 4:09 PM CDT 12/19/2023 4:16 PM CDT Josey Padilla MD LAB - BLOOD BANK ORD ERABLES Performing Organization Address [facility] Co de Phone Number [facility] [address] [place] [address] * (ABNORMAL) BASIC METABOLIC PANEL (CALCIUM TOTAL) (12/19/2023 4:09 PM CDT) Only the most recent of41 resultswithin the time period is included. [facility] Glucose 200(H) 70 - 105 mg/dL 12/19/2023 4:37 PM CDT [facility] Sodium 136 136 - 145 mmol/L 12/19/2023 4:37 PM CDT [facility] Potassium 3.6 3.5 - 5.1 mmol/L 12/19/2023 4:37 PM CDT [facility] Chloride 94(L) 98 - 107 mmol/L 12/19/2023 4:37 PM CDT [facility] CO2 31(H) 22 - 29 mmol/L 12/19/2023 4:37 PM CDT [facility] Calcium 8.6 8.4 - 10.4 mg/dL 12/19/2023 4:37 PM CDT [facility] Anion Gap 11 6 - 16 mmol/L 12/19/2023 4:37 PM CDT [facility] BUN 24 7 - 26 mg/dL 12/19/2023 4:37 PM CDT [facility] Creatinine 2.11(H) 0.72 - 1.25 mg/dL 12/19/2023 4:37 PM CDT [facility] eGFR by CKD-EPI 33(L) >=90 mL/min/1.7 3 m2 12/19/2023 4:37 PM CDT [facility] Blood BLOOD SPECIMEN / Unknown Lab Venipuncture / Unknown 12/19/2023 4:09 PM CDT 12/19/2023 4:16 PM CDT Josey Padilla MD LAB - CHEMISTRY JAYME BURNER Performing Organization Address City/[facility]/ZIP Co de Phone Number [facility] [address] [place] [phone] * PHOSPHORUS BLOOD (12/19/2023 4:09 PM CDT) Only the most recent of25 resultswithin the time period is included. Phosphorus 2.6 2.3 - 4.7 mg/dL 12/19/2023 4:37 PM CDT [facility] Blood BLOOD SPECIMEN / Unknown Lab Venipuncture / Unknown 12/19/2023 4:09 PM CDT 12/19/2023 4:16 PM CDT Josey Padilla MD LAB - CHEMISTRY JAYME BRUNER [facility] [address] [place] [address] * CT ABDOMEN PELVIS WO CONTRAST (12/18/2023 12:34 PM CDT) Only the most recent of9 resultswithin the time period is included. Anatomical Region Laterality Modality Abdomen, Pelvis Computed Tomogra phy 12/18/2023 12:4 3 PM CDT Impressions 12/18/2023 12:47 PM CDT IMPRESSION: Limited exam due to lack of contrast and significant patient motion. Large hiatal hernia. No evidence for bowel obstruction. Other incidental findings as described. > Interpreting Provider: Torres Ha MD on 12/18/2023 12:47 PM Narrative 12/18/2023 12:47 PM CDT Procedure: CT ABDOMEN PELVIS WO CONTRAST Exam Date: 12/18/2023 12:35 PM Location: [facility] CT abdomen and pelvis without IV contrast Indication: R10.84: Generalized abdominal pain Technique: CT examination of the abdomen and pelvis was performed from the lung bases through the pubis symphysis without IV contrast. Sagittal and coronal reconstructions were performed. FINDINGS: The study is compared to the recent exam from 12/09/2023. The lack of oral and IV contrast limits the evaluation. In addition, there is significant patient motion which degrades image quality and could obscure abnormalities. Patient refused repeat imaging. The lung bases are clear of infiltrate. There are degenerative changes of the spine. There are degenerative changes of both hips. There is a penile prosthesis with reservoir in the right lower pelvis. The unenhanced liver is grossly unremarkable. The patient is status post cholecystectomy. The pancreas is unremarkable. The spleen is unremarkable. There is no adrenal mass. Renal cysts are noted. There is no hydronephrosis. The aorta is normal in caliber. The IVC is normal in caliber. There is no retroperitoneal adenopathy. There is no mesenteric adenopathy. There is a large hiatal hernia. There is some fluid within the distal esophagus/hernia which may be due to reflux. No gastric wall thickening is seen. The small bowel loops in the upper abdomen are nondistended with no bowel wall thickening. Colonic structures are decompressed. Within the pelvis: A normal appendix is seen within the right lower quadrant. There appear to be changes of prior TURP procedure. No bladder wall thickening is seen. There is no free fluid within the pelvis. There is no inguinal adenopathy. There is no pelvic adenopathy. The bowel loops within the pelvis are unremarkable. Procedure Note Torres Ha MD - 12/18/2023 Procedure: CT ABDOMEN PELVIS WO CONTRAST Exam Date: 12/18/2023 12:35 PM Location: [facility] CT abdomen and pelvis without IV contrast Indication: R10.84: Generalized abdominal pain Technique: CT examination of the abdomen and pelvis was performed fromthe lung bases through the pubis symphysis without IV contrast. Sagittal and coronal reconstructions were performed. FINDINGS: The study is compared to the recent exam from 12/09/2023. Thelack of oral and IV contrast limits the evaluation. In addition, there is significant patient motion which degrades image quality and couldobscure abnormalities. Patient refused repeat imaging. The lung bases are clear of infiltrate. There are degenerative changesof the spine. There are degenerative changes of both hips. There is apenile prosthesis with reservoir in the right lower pelvis. The unenhanced liver is grossly unremarkable. The patient is statuspost cholecystectomy. The pancreas is unremarkable. The spleen is unremarkable. There is no adrenal mass. Renal cysts are noted. Thereis no hydronephrosis. The aorta is normal in caliber. The IVC is normal in caliber. Thereis no retroperitoneal adenopathy. There is no mesenteric adenopathy. There is a large hiatal hernia. There is some fluid within the distal esophagus/hernia which may be due to reflux. No gastric wall thickeningis seen. The small bowel loops in the upper abdomen are nondistended withno bowel wall thickening. Colonic structures are decompressed. Within the pelvis: A normal appendix is seen within the right lower quadrant. There appear to be changes of prior TURP procedure. No bladder wall thickening is seen. There is no free fluid within the pelvis. There is no inguinal adenopathy. There is no pelvic adenopathy. The bowel loops within the pelvis are unremarkable. IMPRESSION: Limited exam due to lack of contrast and significant patient motion. Large hiatal hernia. No evidence for bowel obstruction. Other incidental findings as described. > Interpreting Provider: Torres Ha MD on 12/18/2023 12:47 PM Barby Lamb DO CT ORDERABLES * (ABNORMAL) DIFFERENTIAL MANUAL (12/18/2023 11:31 AM CDT) Only the most recent of5 resultswithin the time period is included. Neutrophil % 91(H) 41 - 74 % 12/18/2023 12:03 PM CDT [facility] Lymphocyte % 8(L) 17 - 47 % 12/18/2023 12:03 PM CDT [facility] Monocyte % 1(L) 3 - 11 % 12/18/2023 12:03 PM CDT [facility] Neutrophil Absolute 21.84(H) 1.60 - 7.50 x10E9/L 12/18/2023 12:03 PM CDT [facility] Lymphocyte Absolute 1.92 1.00 - 4.40 x10E9/L 12/18/2023 12:03 PM CDT [facility] Monocyte Absolute 0.24 0.15 - 1.00 x10E9/L 12/18/2023 12:03 PM CDT [facility] RBC Morphology REVIEWED 12/18/2023 12:03 PM CDT [facility] Ovalocytes MODERATE(A) (none) 12/18/2023 12:03 PM CDT [facility] Blood BLOOD SPECIMEN / Unknown Venipuncture / Unknown 12/18/2023 11:31 AM CDT 12/18/2023 11:34 AM CDT Yasmeen Santos PA-C LAB - HEMATOLO GY ORDERABLES Performing Organization Address [facility] de Phone Number [facility] [address] [place], [place] [id number] * LIPASE BLOOD (12/18/2023 11:31 AM CDT) Only the most recent of18 resultswithin the time period is included. Lipase 34 <60 U/L 12/18/2023 11:50 AM CDT [facility] Blood BLOOD SPECIMEN / Unknown Venipuncture / Unknown 12/18/2023 11:31 AM CDT 12/18/2023 11:34 AM CDT Yasmeen Santos PA-C LAB - CHEMISTR Y ORDERABLES Performing Organization Address City/State/[facility] Co de Phone Number [facility] [address] [place] [address] * PATHOLOGY PERIPHERAL SMEAR REVIEW (12/12/2023 4:30 AM CDT) Only the most recent of3 resultswithin the time period is included. Path Review Confirmed 12/12/2023 10:34 AM CDT [facility] Blood BLOOD SPECIMEN / Unknown Lab Venipuncture / Unknown 12/12/2023 4:30 AM CDT 12/12/2023 6:12 AM CDT Narrative [facility] - 12/12/2023 10:34 AM CDT Final Diagnosis- Peripheral blood smear review: 1. Normocytic hypochromic anemia, mild Clinical History: 68-year-old man with history of diabetes, hypertension, atrial fibrillation and chronic kidney disease presented with altered mental status. Peripheral Smear Description: White blood cells are present in adequate numbers with essentially unremarkable differential. Dyspoietic myeloid elements and blasts are not present. The erythrocytes are normocytic and hypochromic. Platelets are present in adequate numbers and are morphologically unremarkable. Test Performed By: Jase Sheppard MD 12/12/2023 10:30 AM Anneliese Edwards MD LAB - PATHOLOGY/CYTO LOGY ORDERABLES Performing Organization Address [facility] de Phone Number [facility] [address] [place] [address] * CARDIAC EKG ORDER (12/10/2023 7:11 PM CDT) Only the most recent of12 resultswithin the time period is included. Narrative 12/10/2023 7:11 PM CDT Ordered by an unspecified provider. Scanned Document CARDIAC SERVICES ORD ERABLES * CT CHEST WO CONTRAST (12/10/2023 5:25 PM CDT) Anatomical Region Laterality Modality Chest Computed Tomogra phy 12/10/2023 5:43 PM CDT Narrative 12/10/2023 5:48 PM CDT PROCEDURE: CT CHEST WO CONTRAST, DATE/TIME OF EXAM: 12/10/2023 5:26 PM, LOCATION [facility] INDICATION: K44.9: Diaphragmatic hernia without obstruction or gangrene CT chest without contrast HISTORY: Hiatus hernia and esophageal mass TECHNIQUE: Noncontrast CT chest is obtained and compared to CT abdomen and pelvis 12/09/2023 The heart size is normal. There is coronary calcification. No paracardial effusion is present. No anterior mediastinal adenopathy is present. There is distal esophageal wall thickening is noted on CT scan of the abdomen from 12/09/2023 extending from the region the subcarina to the stomach. There are small paraesophageal retroperitoneal lymph nodes and small lymph nodes are present the region the gastrohepatic ligament. Oral contrast is seen within the distal esophagus and stomach. There are linear lung base infiltrates suggesting atelectasis. No lung nodular consolidating infiltrate is seen. There is no pleural effusion or pneumothorax. DIAGNOSIS: Distal esophageal wall thickening is present extending from the subcarinal region to the stomach. There are small para esophageal posterior mediastinal lymph nodes and small lymph nodes in the region the gastric hepatic ligament. Direct visualization is recommended for further characterization Coronary artery disease Lung base atelectasis > Interpreting Provider: Dalton Waters MD on 12/10/2023 5:48 PM Procedure Note Dalton Waters MD - 12/10/2023 PROCEDURE: CT CHEST WO CONTRAST, DATE/TIME OF EXAM: 12/10/2023 5:26 PM, LOCATION [facility] INDICATION: K44.9: Diaphragmatic hernia without obstruction or gangrene CT chest without contrast HISTORY: Hiatus hernia and esophageal mass TECHNIQUE: Noncontrast CT chest is obtained and compared to CT abdomenand pelvis 12/09/2023 The heart size is normal. There is coronary calcification. Noparacardial effusion is present. No anterior mediastinal adenopathy is present. There is distal esophageal wall thickening is noted on CT scan of the abdomen from 12/09/2023 extending from the region the subcarina to the stomach. There are small paraesophageal retroperitoneal lymph nodes and small lymph nodes are present the region the gastrohepatic ligament.Oral contrast is seen within the distal esophagus and stomach. There are linear lung base infiltrates suggesting atelectasis. No lung nodular consolidating infiltrate is seen. There is no pleural effusionor pneumothorax. DIAGNOSIS: Distal esophageal wall thickening is present extending fromthe subcarinal region to the stomach. There are small para esophagealposterior mediastinal lymph nodes and small lymph nodes in the region the gastric hepatic ligament. Direct visualization is recommended for further characterization Coronary artery disease Lung base atelectasis > Interpreting Provider: Dalton Waters MD on 12/10/2023 5:48 PM Loc Su MD CT ORDERABLES * (ABNORMAL) BLOOD GASES ALLA (12/09/2023 10:18 AM CDT) Only the most recent of5 resultswithin the time period is included. pH Venous 7.48(H) 7.32 - 7.42 pH 12/09/2023 10:21 AM CDT [facility] pO2 Venous 20(LL) 35 - 40 mmHg 12/09/2023 10:21 AM CDT [facility] pCO2 Venous 52(H) 40 - 50 mmHg 12/09/2023 10:21 AM CDT [facility] HCO3 Venous 38.7(H) 24 - 26 mmol/L 12/09/2023 10:21 AM CDT [facility] Base Excess Venous 13.0(H) -2.0 - 2.0 mmol/L 12/09/2023 10:21 AM CDT [facility] O2 Saturation Venous 31(L) >=70 % 12/09/2023 10:21 AM CDT [facility] Test N/A 12/09/2023 10:21 AM CDT [facility] Notified Who 12/09/2023 10:21 AM CDT [facility] Notification Time 1020 12/09/2023 10:21 AM CDT [facility] 12/09/2023 10:21 AM CDT [facility] Read Back and Verified Y 12/09/2023 10:21 AM CDT [facility] Blood BLOOD SPECIMEN / Unknown 12/09/2023 10:18 AM CDT 12/09/2023 10:18 AM CDT Yong Carreno DO LAB - BLOOD GAS ES ORDERABLES [facility] [address] [place] [address] * CT HEAD WO CONTRAST (12/09/2023 9:39 AM CDT) Only the most recent of2 resultswithin the time period is included. Anatomical Region Laterality Modality Head Computed Tomogra phy 12/09/2023 9:43 AM CDT Impressions 12/09/2023 9:46 AM CDT IMPRESSION: 1. No CT evidence of acute intracranial process. > Interpreting Provider: Divine Aldana MD on 12/09/2023 9:46 AM Narrative 12/09/2023 9:46 AM CDT PROCEDURE: CT HEAD WO CONTRAST DATE/TIME OF EXAM: 12/09/2023 9:40 AM CLINICAL INFORMATION: None relevant/not provided if blank. Indication: R41.82: Altered mental status, unspecified Additional History: COMPARISON: None. TECHNIQUE: Noncontrast CT brain was performed utilizing standard protocol. CT dose reduction technique was used, including Automated Exposure Control. FINDINGS: No acute intra- or extra-axial fluid collections are identified. There is diffuse cerebral volume loss with prominence of the ventricular system and sulci. There is periventricular low-attenuation due to small vessels disease. The basilar cisterns are patent. No mass effect or midline shift is seen. The cardoza-white matter differentiation is normal. There is mucosal thickening in the maxillary sinuses. No acute fracture is identified. There is a scalp hematoma over the high right parietal region. Procedure Note Divine Aldana MD - 12/09/2023 PROCEDURE: CT HEAD WO CONTRAST DATE/TIME OF EXAM: 12/09/2023 9:40 AM CLINICAL INFORMATION: None relevant/not provided if blank. Indication: R41.82: Altered mental status, unspecified Additional History: COMPARISON: None. TECHNIQUE: Noncontrast CT brain was performed utilizing standard protocol. CT dose reduction technique was used, including Automated ExposureControl. FINDINGS: No acute intra- or extra-axial fluid collections are identified. Thereis diffuse cerebral volume loss with prominence of the ventricular systemand sulci. There is periventricular low-attenuation due to small vessels disease. The basilar cisterns are patent. No mass effect or midlineshift is seen. The cardoza-white matter differentiation is normal. There ismucosal thickening in the maxillary sinuses. No acute fracture is identified.There is a scalp hematoma over the high right parietal region. IMPRESSION: 1. No CT evidence of acute intracranial process. > Interpreting Provider: Divine Aldana MD on 12/09/2023 9:46 AM Yong Carreno DO CT ORDERABLES * HYDROXYBUTYRATE BETA (12/09/2023 6:39 AM CDT) Only the most recent of7 resultswithin the time period is included. Beta-Hydroxybu tyrate 0.30 <0.50 mmol/L 12/09/2023 7:26 AM CDT [facility] Blood BLOOD SPECIMEN / Unknown Venipuncture / Unknown 12/09/2023 6:39 AM CDT 12/09/2023 7:09 AM CDT Narrative [facility] - 12/09/2023 7:26 AM CDT Results >1.5 mmol/L may be indicative of diabetic ketoacidosis. Use in conjunction with Serum Glucose levels. Yong Carreno DO LAB - CHEMISTRY ORDERABLES Performing Organization Address City/State/[facility] Co de Phone Number [facility] [address] [phone] * Critical Care (12/09/2023 6:31 AM CDT) Narrative Yogn Carreno DO - 12/09/2023 6:31 AM CDT Yong Carreno DO 12/09/2023 10:04 AM Critical Care Performed by: Yong Carreno DO Authorized by: Yong Carreno DO Critical care provider statement: Critical care time (minutes): 35 Critical care time was exclusive of: Separately billable procedures and treating other patients and teaching time Critical care was time spent personally by me on the following activities: Ordering and performing treatments and interventions, ordering and review of laboratory studies and ordering and review of radiographic studies I assumed direction of critical care for this patient from another provider in my specialty: no Care discussed with: admitting provider Yong Carreno DO PROCEDURE/MINOR SURGICAL ORDERABLES * US RETROPERITONEAL COMPLETE (11/16/2023 9:51 AM CDT) Only the most recent of5 resultswithin the time period is included. Anatomical Region Laterality Modality Abdomen Ultrasound 11/16/2023 11:1 6 AM CDT Impressions 11/16/2023 11:27 AM CDT IMPRESSION: 1. Normal size kidneys with scattered bilateral simple cysts. 2. Empty urinary bladder > Interpreting Provider: Stephanie Hall MD on 11/16/2023 11:27 AM Narrative 11/16/2023 11:27 AM CDT PROCEDURE: US RETROPERITONEAL COMPLETE DATE/TIME OF EXAM: 11/16/2023 9:52 AM CLINICAL INFORMATION: None relevant/not provided if blank. Indication: N17.9: Acute kidney failure, unspecified (HCC) Additional History: COMPARISON: Right upper quadrant ultrasound from 05/03/[address] abdomen and pelvis from 11/15/2023 TECHNIQUE: Real-time ultrasound of the kidneys and bladder with DICOM image capture performed by photonics engineering technologist. FINDINGS: The right kidney measures 13.0 x 5.6 x 5.3 cm and has normal cortical thickness and echogenicity. There are several simple cortical cysts in both the upper lower pole measuring up to 3.2 and 2.3 cm respectively. No shadowing stone or obstruction. The left kidney measures 11.0 x 6.1 x 4.1 cm and has normal size and echogenicity. In the upper pole a 1.4 cm simple cyst is identified. The smaller cyst in the lower pole seen on CT is not clearly identified on ultrasound. No shadowing stone or obstruction. The urinary bladder is completely empty and neither ureteral jet is seen. Procedure Note Stephanie Hall MD - 11/16/2023 PROCEDURE: US RETROPERITONEAL COMPLETE DATE/TIME OF EXAM: 11/16/2023 9:52 AM CLINICAL INFORMATION: None relevant/not provided if blank. Indication: N17.9: Acute kidney failure, unspecified (HCC) Additional History: COMPARISON: Right upper quadrant ultrasound from 05/03/[address] abdomen and pelvis from 11/15/2023 TECHNIQUE: Real-time ultrasound of the kidneys and bladder with DICOMimage capture performed by photonics engineering technologist. FINDINGS: The right kidney measures 13.0 x 5.6 x 5.3 cm and has normal cortical thickness and echogenicity. There are several simple cortical cysts in both the upper lower pole measuring up to 3.2 and 2.3 cm respectively.No shadowing stone or obstruction. The left kidney measures 11.0 x 6.1 x 4.1 cm and has normal size and echogenicity. In the upper pole a 1.4 cm simple cyst is identified.The smaller cyst in the lower pole seen on CT is not clearly identified on ultrasound. No shadowing stone or obstruction. The urinary bladder is completely empty and neither ureteral jet isseen. IMPRESSION: 1. Normal size kidneys with scattered bilateral simple cysts. 2. Empty urinary bladder > Interpreting Provider: Stephanie Hall MD on 11/16/2023 11:27 AM Jeff Sutton MD ORDERABLES * (ABNORMAL) HEMOGLOBIN A1C (11/15/2023 5:58 PM CDT) Only the most recent of8 resultswithin the time period is included. Hemoglobin A1c 7.9(H) <5.7 % 11/15/2023 6:33 PM CDT [facility] Estimated Average Glucose 180 mg/dL 11/15/2023 6:33 PM CDT [facility] Blood BLOOD SPECIMEN / Unknown Lab Venipuncture / Unknown 11/15/2023 5:58 PM CDT 11/15/2023 6:22 PM CDT [facility] - 11/15/2023 6:33 PM CDT HbA1c Interpretation: Normal: < 5.7% Pre-diabetes: 5.7-6.4% Diabetes: Equal to or greater than 6.5% Test results diagnostic of diabetes should be repeated for confirmation. Treatment target values recommended by ADA and other clinical organizations should be used to evaluate metabolic control in patients. This test should not replace glucose testing for patients with Type 1 diabetes, pediatric patients, or women. Falsely low HbA1c results may be observed in patients with clinical conditions that shorten erythrocyte life span or decrease mean erythrocyte age such as the presence of unstable hemoglobin variants, elevated hemoglobin F level or other causes of hemolytic anemia. HbA1c may not accurately reflect glycemic control when clinical conditions that affect erythrocyte survival are present. Severe Iron deficiency anemia may yield falsely high results. Hemoglobin A1c assay should not be used to diagnose or monitor diabetes in patients with malignancy, recent blood transfusion, chronic kidney or liver disease. This method may yield falsely low results when hemoglobin (HbF) exceeds 5% in the specimen. The Peres Alinity assay for the measurement of HbA1c is a National Glycohemoglobin Standardization Program (NGSP) certified method. Andrew Buchanan MD LAB - CHEMISTRY JAYME BRUNER Performing Organization Address [facility] Co de Phone Number [facility] [address] [place] [phone] * (ABNORMAL) OSMOLALITY BLOOD (11/15/2023 5:58 PM CDT) Only the most recent of2 resultswithin the time period is included. Pathologist [facility] Osmolality 311(H) 280 - 300 mOsm/kg 11/15/2023 6:35 PM CDT [facility] Blood BLOOD SPECIMEN / Unknown Lab Venipuncture / Unknown 11/15/2023 5:58 PM CDT 11/15/2023 6:22 PM CDT Andrew Buchanan MD LAB - CHEMISTRY JAYME BRUNER Performing Organization Address [facility] de Phone Number [facility] [address] [place] [phone] * (ABNORMAL) BLOOD GASES ARTERIAL (11/15/2023 5:47 PM CDT) Only the most recent of2 resultswithin the time period is included. Pathologist [facility] pH Arterial 7.60(H) 7.35 - 7.45 pH 11/15/2023 5:49 PM CDT [facility] pO2 Arterial 76(L) 80 - 100 mmHg 11/15/2023 5:49 PM CDT [facility] pCO2 Arterial 53(H) 35 - 45 mmHg 11/15/2023 5:49 PM CDT [facility] HCO3 Arterial 52.0(H) 22.0 - 26.0 mmol/L 11/15/2023 5:49 PM CDT [facility] BE Arterial 26.4(H) -2.0 - 2.0 mmol/L 11/15/2023 5:49 PM CDT [facility] O2 Saturation Arterial 96 90 - 100 % 11/15/2023 5:49 PM CDT [facility] Test NA 11/15/2023 5:49 PM CDT [facility] Mode Room Air 11/15/2023 5:49 PM CDT [facility] P/F Ratio 11/15/2023 5:49 PM CDT [facility] Comment:C^Incalculable Blood, arterial ARTERIAL BLOOD SPECIMEN / Unknown 11/15/2023 5:47 PM CDT 11/15/2023 5:47 PM CDT Andrew Buchanan MD LAB - BLOOD GASES OR DERABLES Performing Organization Address City/[facility]/ZIP Co de Phone Number [facility] [address] [place] [address] * (ABNORMAL) HGB HCT PANEL (11/02/2023 12:45 PM CDT) Only the most recent of14 resultswithin the time period is included. [facility] Hemoglobin 8.8(L) 13.3 - 17.5 g/dL 11/02/2023 12:55 PM CDT [facility] Hematocrit 27.7(L) 38.7 - 51.1 % 11/02/2023 12:55 PM CDT [facility] Blood BLOOD SPECIMEN / Unknown Lab Venipuncture / Unknown 11/02/2023 12:45 PM CDT 11/02/2023 12:50 PM CDT Tre Grant DO LAB - HEMATOLOGY ORD ERABLES Performing Organization Address City/[facility]/ZIP Co de Phone Number [facility] [address] [place] [address] * PREPARE (CROSSMATCH) RBC UNIT(S), 2 Units (11/02/2023 1:41 AM CDT) Only the most recent of4 resultswithin the time period is included. [facility] Unit Description AS1 LR PRBC IRR [facility] Unit ABO O [facility] Unit Rh NEG [facility] Product Number R04 [facility] Unit Donor # [id number] [facility] Unit Status released [facility] Product [facility] [id number] [facility] Blood Type Barcode 9500 [facility] Expiration Date S [facility] Unit Description AS1 LR PRBC IRR [facility] Unit ABO O [facility] Unit Rh NEG [facility] Product Number R04 [facility] Unit Donor # [id number] [facility] Unit Status transfused [facility] Product [facility] [id number] [facility] Blood Type Barcode 9500 [facility] Expiration Date S [facility] Unit Description AS1 LR PRBC [facility] Unit ABO O [facility] Unit Rh NEG [facility] Product Number R02 [facility] Unit Donor # [id number] [facility] Unit Status released [facility] OD [facility]ANK LAB Product [facility] [id number] [facility] Blood Type Barcode 9500 [facility] Expiration Date S [facility] Blood Bank BLOOD SPECIMEN / Unknown 10/29/2023 12:46 PM CDT Tre Grant DO LAB - BLOOD BANK ORD ERABLES [facility] [address] [place] [address] * EGD (11/01/2023 4:23 PM CDT) Report Endoscopy POC _ Patient Name: Hussain Boise Procedure Date: 11/01/2023 4:23 PM Date of : 1955 Admit Type: Inpatient Age: 68 Gender: Male Ethnicity: Not or Race: Unknown Attending MD: Alberto Sahu MD, [id number] _ Procedure: Upper GI endoscopy Indications: Melena Providers: Alberto Sahu MD (Doctor), Zayda Shah RN, Penny Cooley RN, Sadie Tellez, Cab Starter Referring MD: Maricruz Ramirez MD (Referring MD) Complications: No immediate complications. _ Estimated Blood Loss: Estimated blood loss: none. Procedure: Pre-Anesthesia Assessment: - Prior to the procedure, a History and Physical was performed, and patient medications and allergies were reviewed. The patient's tolerance of previous anesthesia was also reviewed. The risks and benefits of the procedure and the sedation options and risks were discussed with the patient. All questions were answered, and informed consent was obtained. Prior Anticoagulants: The patient has taken no anticoagulant or antiplatelet agents. ASA Grade Assessment: III - A patient with severe systemic disease. After reviewing the risks and benefits, the patient was deemed in satisfactory condition to undergo the procedure. After obtaining informed consent, the endoscope was passed under direct vision. Throughout the procedure, the patient's blood pressure, pulse, and oxygen saturations were monitored continuously. The Endoscope was introduced through the mouth, and advanced to the second part of duodenum. Moderate sedation was administered for [ ' minutes The upper GI endoscopy was accomplished without difficulty. The patient tolerated the procedure well. Impression: - Moderately severe reflux esophagitis with no bleeding. - Hiatal hernia. - Gastritis. - fair amount of liquid and medium amount of food (residue) in the stomach. - Normal duodenal bulb, first portion of the duodenum and second portion of the duodenum. - No specimens collected. Findings: Moderately severe esophagitis with no bleeding was found in the lower third of the esophagus. A hiatal hernia was present. Minimal inflammation was found in the gastric antrum. fair amount of liquid and medium amount of food (residue) was found in the gastric body. removed The duodenal bulb, first portion of the duodenum and second portion of the duodenum were normal. _ Recommendation: - Written discharge instructions were provided to the patient. - The signs and symptoms of potential delayed complications were discussed with the patient. - Patient has a contact number available for emergencies. - Return to normal activities tomorrow. - Resume previous diet. - Continue present medications. - Await pathology results. Procedure Code(s): --- Professional --- 48310, Esophagogastroduo denoscopy, flexible, transoral; diagnostic, including collection of specimen(s) by brushing or washing, when performed (separate procedure) --- Technical --- 57270, Esophagogastroduo denoscopy, flexible, transoral; diagnostic, including collection of specimen(s) by brushing or washing, when performed (separate procedure) Diagnosis Code(s): --- Professional --- K21.00, Gastro-esophageal reflux disease with esophagitis, without bleeding K44.9, Diaphragmatic hernia without obstruction or gangrene K29.70, Gastritis, unspecified, without bleeding K92.1, Melena (includes Hematochezia) --- Technical --- K21.00, Gastro-esophageal reflux disease with esophagitis, without bleeding K44.9, Diaphragmatic hernia without obstruction or gangrene K29.70, Gastritis, unspecified, without bleeding K92.1, Melena (includes Hematochezia) CPT copyright 2020 [employer]. All rights reserved. The codes documented in this report are preliminary and upon town planner review may be revised to meet current compliance requirements. Alberto Sahu MD 11/01/2023 4:46:48 PM This report has been signed electronically. Number of Addenda: 0 Note Initiated On: 11/01/2023 4:23 PM [facility] 11/01/2023 4:23 PM CDT Alberto Sahu MD GI PROCEDURE ORDERAB LES Performing Organization Address City/[facility]/ZIP Co de Phone Number [facility] * TRANSFUSE RED BLOOD CELL LEUKOREDUCED UNIT(S) (11/01/2023 12:30 PM CDT) Tre Grant DO NURSING - BLOOD PROD TRANSFUSION * CULTURE BLOOD (10/31/2023 5:58 AM CDT) Only the most recent of6 resultswithin the time period is included. Culture No growth day 5 [place] 11/05/2023 8:32 AM CDT [facility] Blood PERIPHERAL BLOOD / Unknown Lab Venipuncture / Unknown 10/31/2023 5:58 AM CDT 10/31/2023 6:13 AM CDT Tre Grant DO LAB - MICROBIOLOGY O RDERABLES Performing Organization Address City/[facility]/ZIP Co de Phone Number [facility] [address] [place] [address], [facility] [phone] * (ABNORMAL) COAGULATION PANEL W D-DIMER (10/29/2023 3:30 PM CDT) PT 14.0 12.1 - 14.8 sec 10/29/2023 3:58 PM CDT [facility] INR 1.1 0.9 - 1.1 10/29/2023 3:58 PM CDT [facility] PTT 25.5 23.0 - 38.4 sec 10/29/2023 3:58 PM CDT [facility] Fibrinogen 662(H) 200 - 400 mg/dL 10/29/2023 3:58 PM [facility] D-Dimer 2.49(H) 0.27 - 0.50 ug/mL FEU 10/29/2023 3:58 PM [facility] Platelet Count 300 150 - 420 x10E9/L 10/29/2023 3:58 PM [facility] Blood BLOOD SPECIMEN / Unknown Venipuncture / Unknown 10/29/2023 3:30 PM CDT 10/29/2023 3:34 PM CDT Narrative [facility] - 10/29/2023 3:58 PM CDT Conventional Warfarin Anticoagulant Therapy INR Reference Range: 2.0-3.0 Intensive Warfarin Anticoagulant Therapy INR Reference Range: 2.5-3.5 Heparin Therapeutic Range for PTT: 69.0 - 110.0 seconds. In the absence of clinical symptoms, a value less than or equal to 0.5 mcg/mL FEU significantly decreases the probability of PE/DVT (negative predictive value >95%). 1 mcg/ml FEU = 1 Fibrinogen Equivalent Unit (approximates 0.5 mcg/mL of D- dimer). ISTH DIAGNOSTIC SCORING SYSTEM FOR DIC ---- Score 0 1 2 3 Platelet Count (x10^3/uL) > 100 <100 < 50 N/A PT Prolongation above Upper limit of normal 0-3 3-6 > 6 N/A Range (seconds) Fibrinogen (mg/dL) >100 < 100 N/A N/A D-Dimer (mcg/mL FEU) < 0.50 N/A 0.50-5.0 > 5 Calculate Cumulative Score: > or = 5: compatible with overt DIC < 5: suggestive for non-overt DIC N/A = Non applicable Reference: Br. J. Haematol. 145:24-33,2009. Amy Huffman MD LAB - COAGULATION ORDERABLES [facility] [address] [place], [place] [id number] * BLOOD TYPE VERIFICATION (10/29/2023 3:22 PM CDT) Only the most recent of2 resultswithin the time period is included. ABO Rh O NEG 10/29/2023 4:1 7 PM CDT [facility] Blood Bank BLOOD SPECIMEN / Unknown Lab Venipuncture / Unknown 10/29/2023 3:22 PM CDT 10/29/2023 3:54 PM CDT Alberto Sahu MD LAB - BLOOD BANK ORD ERABLES [facility] [address] [place] [address] [phone] * LACTIC ACID BLOOD REFLEX TO REPEAT (10/29/2023 3:21 PM CDT) Only the most recent of5 resultswithin the time period is included. Lactic Acid 1.8 <=2 mmol/L 10/29/2023 3:46 PM CDT [facility] Blood BLOOD SPECIMEN / Unknown Venipuncture / Unknown 10/29/2023 3:21 PM CDT 10/29/2023 3:34 PM CDT Amy Huffman MD LAB - CHEMISTRY Whitney FERNANDES Performing Organization Address [facility] de Phone Number [facility] [address] [place] [phone] * (ABNORMAL) GLUCOSE (10/29/2023 3:15 PM CDT) Only the most recent of2 resultswithin the time period is included. Glucose 461(HH) 70 - 105 mg/dL 10/29/2023 3:33 PM CDT [facility] Blood BLOOD SPECIMEN / Unknown Venipuncture / Unknown 10/29/2023 3:15 PM CDT 10/29/2023 3:15 PM CDT Amy Huffman MD LAB - CHEMISTRY Whitney FERNANDES Performing Organization Address [facility] Co de Phone Number [facility] [address] [place] [phone] * LACTIC ACID BLOOD (10/26/2023 5:30 AM CDT) Only the most recent of13 resultswithin the time period is included. Lactic Acid 1.1 <=2 mmol/L 10/26/2023 6:42 AM CDT [facility] Blood BLOOD SPECIMEN / Unknown Lab Venipuncture / Unknown 10/26/2023 5:30 AM CDT 10/26/2023 6:17 AM CDT Josey Padilla MD LAB - CHEMISTRY JAYME BRUNER Performing Organization Address [facility] [place] [address] * HELICOBACTER PYLORI UREASE (STL) (10/25/2023 4:34 PM CDT) Only the most recent of5 resultswithin the time period is included. Helicobacter pylori Urease Initial Negative Negative 10/26/2023 4:23 PM CDT [facility] Helicobacter pylori Urease Final Negative Negative 10/26/2023 4:23 PM CDT [facility] Microbiology GASTRIC BIOPSY SPECIMEN / Unknown 10/25/2023 4:34 PM CDT 10/25/2023 5:17 PM CDT Alberto Sahu MD LAB - MICROBIOLOGY Whitney FERNANDES Performing Organization Address [facility] de Phone Number [facility] [address] [place] [address] * EGD (10/25/2023 4:06 PM CDT) Report Endoscopy POC _ Patient Name: Hussain Boise Procedure Date: 10/25/2023 4:06 PM Date of : 1955 Admit Type: Inpatient Age: 68 Gender: Male Ethnicity: Not or Race: Unknown Attending MD: Alberto Sahu MD, [id number] _ Procedure: Upper GI endoscopy Indications: Suspected gastro-esophageal reflux disease Providers: Alberto Sahu MD (Doctor), Elisabeth Astorga RN, Dayami Shepherd, Cab Starter Referring MD: Maricruz Ramirez MD (Referring MD) Medicines: Propofol per Anesthesia Complications: No immediate complications. _ Estimated Blood Loss: Estimated blood loss: none. Procedure: Pre-Anesthesia Assessment: - Prior to the procedure, a History and Physical was performed, and patient medications and allergies were reviewed. The patient's tolerance of previous anesthesia was also reviewed. The risks and benefits of the procedure and the sedation options and risks were discussed with the patient. All questions were answered, and informed consent was obtained. Prior Anticoagulants: The patient has taken no anticoagulant or antiplatelet agents. ASA Grade Assessment: II - A patient with mild systemic disease. After reviewing the risks and benefits, the patient was deemed in satisfactory condition to undergo the procedure. After obtaining informed consent, the endoscope was passed under direct vision. Throughout the procedure, the patient's blood pressure, pulse, and oxygen saturations were monitored continuously. The Endoscope was introduced through the mouth, and advanced to the second part of duodenum. Moderate sedation was administered for [ ' minutes The upper GI endoscopy was accomplished without difficulty. The patient tolerated the procedure well. Impression: - Hiatal hernia. - Gastritis. Biopsied. - Normal duodenal bulb, first portion of the duodenum and second portion of the duodenum. Findings: A hiatal hernia was present. Localized minimal inflammation characterized by erythema was found in the gastric antrum. Biopsies were taken with a cold forceps for Helicobacter pylori testing using CLOtest. Estimated blood loss: none. The duodenal bulb, first portion of the duodenum and second portion of the duodenum were normal. _ Recommendation: - Written discharge instructions were provided to the patient. - The signs and symptoms of potential delayed complications were discussed with the patient. - Patient has a contact number available for emergencies. - Return to normal activities tomorrow. - Resume previous diet. - Follow an antireflux regimen. Procedure Code(s): --- Professional --- 38974, Esophagogastroduo denoscopy, flexible, transoral; with biopsy, single or multiple --- Technical --- 74923, Esophagogastroduo denoscopy, flexible, transoral; with biopsy, single or multiple Diagnosis Code(s): --- Professional --- K44.9, Diaphragmatic hernia without obstruction or gangrene K29.70, Gastritis, unspecified, without bleeding --- Technical --- K44.9, Diaphragmatic hernia without obstruction or gangrene K29.70, Gastritis, unspecified, without bleeding CPT copyright 2020 [employer]. All rights reserved. The codes documented in this report are preliminary and upon town planner review may be revised to meet current compliance requirements. Alberto Sahu MD 10/25/2023 4:39:42 PM This report has been signed electronically. Number of Addenda: 0 Note Initiated On: 10/25/2023 4:06 PM [facility] 10/25/2023 4:06 PM CDT Alberto Sahu MD GI PROCEDURE ORDERAB LES [facility] * XR ABDOMEN 1 VW (KUB) (10/24/2023 6:38 PM CDT) Only the most recent of6 resultswithin the time period is included. Anatomical Region Laterality Modality Abdomen Radiographic Lázaro ging 10/24/2023 6:44 PM CDT Impressions 03/20/2024 1:04 PM CDT IMPRESSION: No radiographic evidence of acute intra-abdominal process. > Interpreting Provider: Jaiden Wang MD on 10/24/2023 6:45 PM Narrative 03/20/2024 1:04 PM CDT PROCEDURE: XR ABDOMEN KUB DATE/TIME OF EXAM: 10/24/2023 6:38 PM CLINICAL INFORMATION: None relevant/not provided if blank. Indication: R11.2: Nausea with vomiting, unspecified Additional History: COMPARISON: Earlier the same day FINDINGS: Enteric tube tip overlies the expected body of the stomach. Single view of the abdomen demonstrates a nonspecific bowel gas pattern with no evidence of obstruction. No mass effect or pathologic calcifications. No acute osseous abnormalities. Procedure Note Jaiden Wang MD - 03/20/2024 PROCEDURE: XR ABDOMEN KUB DATE/TIME OF EXAM: 10/24/2023 6:38 PM CLINICAL INFORMATION: None relevant/not provided if blank. Indication: R11.2: Nausea with vomiting, unspecified Additional History: COMPARISON: Earlier the same day FINDINGS: Enteric tube tip overlies the expected body of the stomach. Single view of the abdomen demonstrates a nonspecific bowel gas pattern with no evidence of obstruction. No mass effect or pathologic calcifications. No acute osseous abnormalities. IMPRESSION: No radiographic evidence of acute intra-abdominal process. > Interpreting Provider: Jaiden Wang MD on 10/24/2023 6:45 PM Josey Padilla MD DIAGNOSTIC IMAGING O RDERABLES * (ABNORMAL) SLIDE SCAN HEMATOLOGY (10/24/2023 6:22 PM CDT) Only the most recent of4 resultswithin the time period is included. RBC Morphology REVIEWED 10/24/2023 8:13 PM CDT [facility] Schistocytes FEW(A) (none) 10/24/2023 8:13 PM CDT [facility] Blood BLOOD SPECIMEN / Unknown Lab Venipuncture / Unknown 10/24/2023 6:22 PM CDT 10/24/2023 6:30 PM CDT Josey Padilla MD LAB - HEMATOLOGY ORD ERABLES [facility] [address] [place] [address] * TROPONIN-I HIGH SENSITIVE (10/24/2023 9:03 AM CDT) Only the most recent of2 resultswithin the time period is included. Troponin I High Sensitive 4 <=35 ng/L 10/24/2023 9:54 AM CDT [facility] Blood BLOOD SPECIMEN / Unknown Lab Venipuncture / Unknown 10/24/2023 9:03 AM CDT 10/24/2023 9:21 AM CDT Josey Padilla MD LAB - CHEMISTRY JAYME BRUNER [facility] [address] [place] [address] * ETT LINE PERFORMABLE (10/23/2023 2:30 PM CDT) Narrative Eduardo Chery APRN-CRNA - 10/23/2023 2:30 PM CDT Eduardo Chery APRN-CRNA 10/23/2023 2:31 PM Endotracheal Tube Placement: Patient Location: OR. Intubation Event Date/Time: 10/23/2023 1:56 PM Procedure: intubation (63306). Procedure Section: Sedation: under general anesthesia. Indications for Airway Management: anesthesia Induction: standard IV and rapid sequence Patient Position: sniffing and supine Mask Ventilation: not attempted. Blade Type: Hunter Blade Size: 4 Laryngoscopy View: grade 2 (partial cords) Intubation Adjuncts: stylet Tube: endotracheal tube Placement: oral Tube type: cuff - inflated Tube Size (MM): 8 Depth of Insertion (CM): 22 Measured From: lips Cuff Inflated With: air Number of Attempts: 1. Placement Verified By: direct visualization, bilateral breath sounds, CO2 monitor and chest auscultation Tube secured with: adhesive tape. Dentition unchanged? Yes Difficult Airway? No. Procedure Start Time: 10/23/2023 1:56 PM. Staff Section Anesthesia Provider: Eduardo Chery APRN-CRNA, Performed the procedure Provider #1: Hollis Jin DO. Hollis Jin DO GENERAL ANESTHESIA ORDERABLES * VANCOMYCIN LEVEL TROUGH (10/23/2023 8:32 AM CDT) Vancomycin Trough 12.1 10.0 - 20.0 ug/mL 10/23/2023 9:13 AM CDT [facility] Blood BLOOD SPECIMEN / Unknown Lab Venipuncture / Unknown 10/23/2023 8:32 AM CDT 10/23/2023 8:56 AM CDT Tevin Schulte MD LAB - CHEMISTRY ORDE FRANC Performing Organization Address City/[facility]/ZIP Co de Phone Number [facility] [address] [place] [phone] * VANCOMYCIN LEVEL PEAK (10/22/2023 1:41 PM CDT) Pathologist [facility] Vancomycin Peak 33.3 25.0 - 40.0 ug/mL 10/22/2023 2:19 PM CDT [facility] Blood BLOOD SPECIMEN / Unknown Lab Venipuncture / Unknown 10/22/2023 1:41 PM CDT 10/22/2023 1:51 PM CDT Tevin Schulte MD LAB - CHEMISTRY ORDTerrie BRUNER Performing Organization Address [facility] Co de Phone Number [facility] [address] [place] [phone] * T4 FREE DIRECT REFLEXED (10/22/2023 5:55 AM CDT) Only the most recent of2 resultswithin the time period is included. Pathologist [facility] T4 Free 1.23 0.70 - 1.50 ng/dL 10/22/2023 7:11 AM CDT [facility] Blood BLOOD SPECIMEN / Unknown Lab Venipuncture / Unknown 10/22/2023 5:55 AM CDT 10/22/2023 6:30 AM CDT Alondra Dumont DO LAB - CHEMISTRY ORDTerrie BRUNER Performing Organization Address [facility] Co de Phone Number [facility] [address] [place] [phone] * (ABNORMAL) PROTEIN ELECTROPHORESIS WO INTERP BLOOD (10/21/2023 2:40 AM CDT) Protein Total 7.2 6.0 - 8.5 g/dL 10/27/2023 6:25 AM CDT [facility]) Albumin 3.5 2.9 - 4.4 g/dL 10/27/2023 6:25 AM CDT [facility]) Alpha-1 Globulin 0.2 0.0 - 0.4 g/dL 10/27/2023 6:25 AM CDT [facility]) Pvmkk-7-Onkvtexq 1.1(H) 0.4 - 1.0 g/dL 10/27/2023 6:25 AM CDT [facility]) Beta-Globulin 1.0 0.7 - 1.3 g/dL 10/27/2023 6:25 AM CDT [facility]) Gamma Globulin 1.4 0.4 - 1.8 g/dL 10/27/2023 6:25 AM CDT [facility]) M-Robert Not Observed Not Observed g/dL 10/27/2023 6:25 AM CDT [facility]) Globulin Total 3.7 2.2 - 3.9 g/dL 10/27/2023 6:25 AM CDT [facility]) Albumin/Globulin Ratio 0.9 0.7 - 1.7 10/27/2023 6:25 AM CDT [facility]) Please Note Comment 10/27/2023 6:25 AM CDT [facility] Comment: Protein electrophoresis scan will follow via computer, mail, or arboriculture instructor delivery. Blood BLOOD SPECIMEN / Unknown Lab Venipuncture / Unknown 10/21/2023 2:40 AM CDT 10/21/2023 3:20 AM CDT Narrative [facility]) - 10/27/2023 6:25 AM CDT Performed at: 01 - [address] [id number] Fire Alarm Operator: Hay Loya PhD, Phone: [phone] Roney Jones MD LAB - CHEMISTRY ORDE FRANC [facility]) [address] [address] * PROTEIN ELECTROPHORESIS PATH INTERP BLOOD (10/21/2023 2:40 AM CDT) Case Report Pathology Interpretation Report Case: [id number] Authorizing Provider: Roney Jones MD Collected: 10/21/2023 02:40 AM Ordering Location: [address] TELE Received: 10/21/2023 09:44 AM Pathologist: Jase Sheppard MD Specimen: Blood 10/25/2023 9:13 AM CDT [facility] Interpretation PE Serum protein electrophoresis shows characteristic bands corresponding to albumin, alpha and beta globulins and polyclonal immunoglobulins. No monoclonal immunoglobulins detected. Non-secretory myeloma (NSM) and light chain only myeloma cannot be excluded based on this result. Recommend serum free light chain measurements for complete evaluation of plasma cell disorders. 10/25/2023 9:13 AM CDT [facility] Blood BLOOD SPECIMEN / Unknown Lab Venipuncture / Unknown 10/21/2023 2:40 AM CDT 10/21/2023 9:44 AM CDT Roney Jones MD LAB - PATHOLOGY/CYTO LOGY ORDERABLES [facility] [address] [place] [address] * (ABNORMAL) PTH INTACT W/O CALCIUM (10/21/2023 2:40 AM CDT) PTH Intact 116.8(H) 8.7 - 77.1 pg/mL 10/21/2023 3:54 AM CDT [facility] Blood BLOOD SPECIMEN / Unknown Lab Venipuncture / Unknown 10/21/2023 2:40 AM CDT 10/21/2023 3:20 AM CDT Alondra Dumont DO LAB - CHEMISTRY ORDE FRANC Performing Organization Address [facility]/ZIP Co de Phone Number [facility] [address] [place], [place] [phone] * (ABNORMAL) TSH REFLEX FREE T4 (10/21/2023 2:40 AM CDT) Only the most recent of2 resultswithin the time period is included. TSH 0.143(L) 0.350 - 4.940 uIU/mL 10/21/2023 4:35 AM CDT [facility] Blood BLOOD SPECIMEN / Unknown Lab Venipuncture / Unknown 10/21/2023 2:40 AM CDT 10/21/2023 3:20 AM CDT Alondra Dumont DO LAB - CHEMISTRY ORDTerrie MELENDEZSANTOS Performing Organization Address [facility] Co de Phone Number [facility] [address] [place] [phone] * (ABNORMAL) VITAMIN D 25-HYDROXY (10/21/2023 2:40 AM CDT) Only the most recent of2 resultswithin the time period is included. Pathologist [facility] Vitamin D, 25 Hydroxy 21.7(L) 30 - 80 ng/mL 10/21/2023 4:35 AM CDT [facility] Blood BLOOD SPECIMEN / Unknown Lab Venipuncture / Unknown 10/21/2023 2:40 AM CDT 10/21/2023 3:20 AM CDT Narrative [facility] - 10/21/2023 4:35 AM CDT Vitamin D Status: Deficiency <20 ng/mL Insufficiency 20-30 ng/mL Sufficiency 30-100 ng/mL Toxicity >100 ng/mL Roney Jones MD LAB - CHEMISTRY ORDE ALSANTOS Performing Organization Address City/[facility]/ZIP Co de Phone Number [facility] [address] [place] [phone] * IMMUNOGLOBULINS IGG/IGM/IGA PANEL (10/21/2023 2:40 AM CDT) Pathologist [facility] IgG 1,499 767 - 1,590 mg/dL 10/21/2023 9:48 PM CDT [facility] IgM 152 37 - 286 mg/dL 10/21/2023 9:48 PM CDT [facility] IgA 281 61 - 356 mg/dL 10/21/2023 9:48 PM CDT [facility] Blood BLOOD SPECIMEN / Unknown Lab Venipuncture / Unknown 10/21/2023 2:40 AM CDT 10/21/2023 3:20 AM CDT Roney Jones MD LAB - CHEMISTRY ORDE FRANC [address] [address], [facility] [phone] * PROTEIN ELECTROPHORESIS PATH INTERP URINE (10/20/2023 8:59 PM CDT) Case Report Pathology Interpretation Report Case: [id number] Authorizing Provider: Roney Jones MD Collected: 10/20/2023 08:59 PM Ordering Location: ER at [facility] Received: 10/21/2023 09:39 AM [facility] Pathologist: Jase Sheppard MD Specimen: Urine Random 10/25/2023 9:10 AM CDT [facility] Interpretation PE Urine Urine protein electrophoresis shows a band corresponding to albumin with small amounts of other nonspecific proteinuria. 10/25/2023 9:10 AM CDT [facility] Pattern/Graph See attached scanned pattern or graph. 10/25/2023 9:10 AM CDT [facility] Clinical History 68-year-old man with renal failure. 10/25/2023 9:10 AM CDT [facility] Urine URINE SPECIMEN OBTAINED BY CLEAN CATCH PROCEDURE / Unknown Collection / Unknown 10/20/2023 8:59 PM CDT 10/21/2023 9:39 AM CDT Roney Jones MD LAB - PATHOLOGY/CYTO LOGY ORDERABLES [facility] [address] [place] [address] * PROTEIN ELECTROPHORESIS URINE RANDOM PANEL (10/20/2023 8:59 PM CDT) Protein Urine 274.5 Not Estab. mg/dL 10/27/2023 6:27 AM CDT [facility] Comment: Results confirmed on dilution. Albumin Urine 68.9 % 10/27/2023 6:27 AM CDT [facility] ([facility]) Alpha-1 Globulin Urine 3.5 % 10/27/2023 6:27 AM CDT [facility] ([facility]) Dpzkz-9-Cclypctk % Urine 4.1 % 10/27/2023 6:27 AM CDT [facility] ([facility]) Beta-Globulin Urine 14.3 % 10/27/2023 6:27 AM CDT [facility] ([facility]) Gamma Globulin % Urine 9.2 % 10/27/2023 6:27 AM CDT [facility] ([facility]) M-Robert % Urine Not Observed Not Observed % 10/27/2023 6:27 AM CDT [facility] ([facility]) Please Note Comment 10/27/2023 6:27 AM CDT [facility] ([facility]) Comment: Protein electrophoresis scan will follow via computer, mail, or arboriculture instructor delivery. Urine URINE SPECIMEN OBTAINED BY CLEAN CATCH PROCEDURE / Unknown Collection / Unknown 10/20/2023 8:59 PM CDT 10/20/2023 9:04 PM CDT Narrative [facility] ([facility]) - 10/27/2023 6:27 AM CDT Performed at: - [facility] [address] [place] [id number] Fire Alarm Operator: Hay Loya PhD, Phone: [phone] Roney Jones MD LAB - URINE CHEMISTR Y ORDERABLES [facility]) [address] [place] [address] * (ABNORMAL) URINE MICROSCOPIC ONLY REFLEX TO CULTURE (10/20/2023 5:25 PM CDT) Only the most recent of8 resultswithin the time period is included. Reflex Status Culture to follow 10/20/2023 5:37 PM CDT [facility] [facility] RBC UA 3-5 0 - 5 # /hpf 10/20/2023 5:37 PM CDT [facility] WBC UA 21-50(A) 0 - 5 # /hpf 10/20/2023 5:37 PM CDT [facility] Bacteria UA None Seen None Seen 10/20/2023 5:37 PM CDT [facility] Squamous Epithelial Cells None Seen 0 - 5 /hpf 10/20/2023 5:37 PM CDT [facility] Urine URINE SPECIMEN OBTAINED VIA INDWELLING URINARY CATHETER / Unknown Collection / Unknown 10/20/2023 5:25 PM CDT 10/20/2023 5:30 PM CDT [facility] [place] [facility] - 10/20/2023 5:37 PM CDT Alondra Dumont DO LAB - URINALYSIS ORD ERABLES [facility] [address] [place] [address] [phone] * (ABNORMAL) URINALYSIS REFLEX MICROSCOPIC REFLEX CULTURE (10/20/2023 5:25 PM CDT) Only the most recent of8 resultswithin the time period is included. Color UA Yellow Straw, Yellow 10/20/2023 5:35 PM CDT [facility] Clarity UA Slt Cloudy(A) Clear 10/20/2023 5:35 PM CDT [facility] Glucose UA 2+(A) Negative 10/20/2023 5:35 PM CDT [facility] Bilirubin UA Negative Negative 10/20/2023 5:35 PM CDT [facility] Ketone UA Negative Negative 10/20/2023 5:35 PM CDT [facility] Specific [place] UA 1.012 1.005 - 1.030 10/20/2023 5:35 PM CDT [facility] Blood UA Negative Negative 10/20/2023 5:35 PM CDT [facility] pH UA 7.0 5.0 - 8.0 pH 10/20/2023 5:35 PM CDT [facility] Protein UA 3+(A) Negative 10/20/2023 5:35 PM CDT [facility] Urobilinogen UA Negative Negative mg/dL 10/20/2023 5:35 PM CDT [facility] Nitrite UA Negative Negative 10/20/2023 5:35 PM CDT [facility] Leukocyte UA 1+(A) Negative 10/20/2023 5:35 PM CDT [facility] Urine Microscopy Urine microscopy to follow 10/20/2023 5:35 PM CDT [facility] Reflex Status Culture to follow 10/20/2023 5:35 PM CDT [facility] Urine URINE SPECIMEN OBTAINED VIA INDWELLING URINARY CATHETER / Unknown Collection / Unknown 10/20/2023 5:25 PM CDT 10/20/2023 5:30 PM CDT Narrative [facility] - 10/20/2023 5:35 PM CDT Alondra Dumont DO LAB - URINALYSIS ORD ERABLES Performing Organization Address [facility] Co de Phone Number [facility] [address] [place] [address] * (ABNORMAL) CULTURE URINE (10/20/2023 5:25 PM CDT) Only the most recent of4 resultswithin the time period is included. [facility] Culture Urine >100,000 CFU/mL Enterococcus faecalis(A) SOLANGE 10/22/2023 10:57 PM CDT [facility] Urine URINE SPECIMEN OBTAINED VIA INDWELLING URINARY CATHETER / Unknown Collection / Unknown 10/20/2023 5:25 PM CDT 10/20/2023 5:30 PM CDT Narrative [facility] - 10/22/2023 10:57 PM CDT Organism Antibiotic Method Susceptibility Enterococcus faecalis Ampicillin SOLANGE <=2 ug/mL: Susceptible Enterococcus faecalis Vancomycin SOLANGE 1 ug/mL: Susceptible Alondra Dumont DO LAB - MICROBIOLOGY O RDERABLES [facility] [address] [place] [address], [facility] [phone] * SARS-COV-2 (COVID-19) FLU A/B RSV PCR RAPID (10/20/2023 4:56 PM CDT) COVID-19 PCR Not detected Not detected 10/20/19 5:50 PM CDT [facility] Influenza A PCR Not detected Not detected 10/20/2023 5:50 PM CDT [facility] Influenza B PCR Not detected Not detected 10/20/2023 5:50 PM CDT [facility] RSV PCR Not detected Not detected 10/20/2023 5:50 PM CDT [facility] Microbiology SPECIMEN FROM NASOPHARYNGEAL STRUCTURE / Unknown Collection / Unknown 10/20/2023 4:56 PM CDT 10/20/2023 5:09 PM CDT Narrative [facility] - 10/20/2023 5:50 PM CDT This nucleic acid amplification assay has been authorized by the Food and Drug administration (FDA) under an Emergency Use Authorization (EUA). This test is only authorized for the duration of time the declaration that circumstances exist justifying the authorization of emergency use of in vitro diagnostic tests for detection of SARS-CoV-2 virus and/or diagnosis of COVID-19 infection under section 564(b)(1) of the Act, 21 U.S.C 360bbb-3 (b)(1), unless the authorization is terminated or revoked sooner. Fact Sheets for this EUA assay are available upon request. Aolndra Dumont DO LAB - MICROBIOLOGY O RDERABLES Performing Organization Address City/State/[facility] Co de Phone Number [facility] [address] [place] [address] * PROCALCITONIN LEVEL (10/20/2023 4:56 PM CDT) Procalcitonin 0.09 <0.10 ng/mL 10/20/2023 5:45 PM CDT [facility] Blood BLOOD SPECIMEN / Unknown Venipuncture / Unknown 10/20/2023 4:56 PM CDT 10/20/2023 5:09 PM CDT Narrative [facility] - 10/20/2023 5:45 PM CDT The change in procalcitonin (PCT) concentration over time provides support in decision making on antibiotic discontinuation for suspected or confirmed septic patients. Follow-up samples should be tested once every 1-2 days based upon physician discretion taking into account the patient s evolution and progress. Consider discontinuation of antibiotic therapy if the PCT current is <= 0.5 ng/mL or if the delta PCT is > 80%. Duration of antibiotics should not be determined solely on PCT; established guidelines for the indication should be followed. PCT peak: Highest observed PCT concentration PCT current: Most recent PCT concentration Calculate delta PCT using the following equation: Delta PCT = PCT Peak PCT current X 100% PCT Peak The Change in Procalcitonin Calculator is available at [email or web address] 1% If clinical picture has not improved and PCT remains high, reevaluate and consider treatment failure or other causes. Alondra Dumont DO LAB - CHEMISTRY JAYME BRUNER Performing Organization Address City/State/[facility] Co de Phone Number [facility] [address] [place] [address] * XR ABD OBSTR SERIES W/PA CHEST (07/10/2023 6:31 PM GLUER MACHINE OPERATOR) Only the most recent of2 resultswithin the time period is included. Anatomical Region Laterality Modality Abdomen Radiographic Lázaro ging 07/10/2023 6:43 PM GLUER MACHINE OPERATOR Narrative 07/10/2023 6:44 PM GLUER MACHINE OPERATOR PROCEDURE: XR ABD OBSTR SERIES W CHEST 1VW, DATE/TIME OF EXAM: 07/10/2023 6:32 PM, LOCATION [facility] INDICATION: K59.00: Constipation, unspecified Obstruction series HISTORY: Constipation The heart size and mediastinal contours are normal and stable. The lungs are clear. There is air throughout the colon overlying the rectum. There are mildly prominent air-filled loops of small bowel in the midabdomen and left abdomen with scattered air-fluid levels. No atypical air-fluid levels or evidence of free air is seen. The psoas shadows are normal. There diagnosis: Mildly prominent small bowel loops are present with scattered air-fluid levels without atypia. Findings are nonspecific but suggest ileus rather than small bowel obstruction. > Interpreting Provider: Dalton Waters MD on 07/10/2023 6:44 PM Procedure Note Dalton Waters MD - 07/10/2023 PROCEDURE: XR ABD OBSTR SERIES W CHEST 1VW, DATE/TIME OF EXAM:07/10/2023 6:32 PM, LOCATION [facility] INDICATION: K59.00: Constipation, unspecified Obstruction series HISTORY: Constipation The heart size and mediastinal contours are normal and stable. The lungs are clear. There is air throughout the colon overlying the rectum. There are mildly prominent air-filled loops of small bowel in the midabdomen and left abdomen with scattered air-fluid levels. No atypical air-fluid levels or evidence of free air is seen. The psoas shadows are normal. There diagnosis: Mildly prominent small bowel loops are present with scattered air-fluid levels without atypia. Findings are nonspecific but suggest ileus rather than small bowel obstruction. > Interpreting Provider: Dalton Waters MD on 07/10/2023 6:44 PM Yasmeen Santos PA-C DIAGNOSTIC LÁZARO GING ORDERABLES * COLONOSCOPY (06/26/2023) 06/26/2023 Narrative 06/26/2023 Ordered by an unspecified provider. Scanned Document SCANNING ONLY * ENDOSCOPY ORDER (06/26/2023) 06/26/2023 Narrative 06/26/2023 Ordered by an unspecified provider. Scanned Document GI PROCEDURE ORDERAB LES * LIPID PROFILE (06/11/2023 4:55 AM GLUER MACHINE OPERATOR) Only the most recent of3 resultswithin the time period is included. Cholesterol 139 <200 mg/dL 06/11/2023 6:27 AM GLUER MACHINE OPERATOR [facility] Triglycerides 88 <150 mg/dL 06/11/2023 6:27 AM GLUER MACHINE OPERATOR [facility] HDL Cholesterol 48 >40 mg/dL 3 6:27 AM GLUER MACHINE OPERATOR [facility] LDL Calculated 73 <130 mg/dL 06/11/2023 6:27 AM GLUER MACHINE OPERATOR [facility] VLDL Calculated 18 <=30 mg/dL 6:27 AM GLUER MACHINE OPERATOR [facility] Chol HDL Ratio 2.9 <4.5 06/11/2023 6:27 AM GLUER MACHINE OPERATOR [facility] LDL/HDL Ratio 1.5 <5.0 06/11/2023 6:27 AM GLUER MACHINE OPERATOR [facility] Blood BLOOD SPECIMEN / Unknown Lab Venipuncture / Unknown 06/11/2023 4:55 AM GLUER MACHINE OPERATOR 06/11/2023 5:35 AM GLUER MACHINE OPERATOR Barby Lamb LAB - CHEMISTRY ORDE ALJobConvo Performing Organization Address [facility]/ZIP Co de Phone Number [facility] [address] [place] [address] [phone] * LACTIC ACID REPEAT REFLEX (06/10/2023 2:58 PM GLUER MACHINE OPERATOR) Only the most recent of2 resultswithin the time period is included. Lactic Acid Repeat Reflex Order LACTIC ACID REPEAT HAS BEEN ORDERED 06/10/2023 5:01 PM [facility] Blood BLOOD SPECIMEN / Unknown Venipuncture / Unknown 06/10/2023 2:58 PM GLUER MACHINE OPERATOR 06/10/2023 3:10 PM GLUER MACHINE OPERATOR Barby Lamb LAB - CHEMISTRY ORDE ALJobConvo Performing Organization Address [facility]/ZIP Co de Phone Number [facility] [address] [place] [phone] * (ABNORMAL) URINALYSIS REFLEX TO MICROSCOPIC NO CULTURE (06/10/2023 2:07 PM GLUER MACHINE OPERATOR) Only the most recent of3 resultswithin the time period is included. Color UA Yellow Straw, Yellow 06/10/2023 2:12 PM GLUER MACHINE OPERATOR [facility] Clarity UA Clear Clear 06/10/2023 2:12 PM GLUER MACHINE OPERATOR [facility] Glucose UA 3+(A) Negative 06/10/2023 2:12 PM GLUER MACHINE OPERATOR [facility] Bilirubin UA Negative Negative 06/10/2023 2:12 PM GLUER MACHINE OPERATOR [facility] Ketone UA Negative Negative 06/10/2023 2:12 PM GLUER MACHINE OPERATOR [facility] Specific Towanda UA 1.018 1.005 - 1.030 06/10/2023 2:12 PM GLUER MACHINE OPERATOR [facility] Blood UA Negative Negative 06/10/2023 2:12 PM GLUER MACHINE OPERATOR [facility] pH UA 8.0 5.0 - 8.0 pH 06/10/2023 2:12 PM GLUER MACHINE OPERATOR [facility] Protein UA 3+(A) Negative 06/10/2023 2:12 PM GLUER MACHINE OPERATOR [facility] Urobilinogen UA Negative Negative mg/dL 06/10/2023 2:12 PM GLUER MACHINE OPERATOR [facility] Nitrite UA Negative Negative 06/10/2023 2:12 PM GLUER MACHINE OPERATOR [facility] Leukocyte UA Negative Negative 06/10/2023 2:12 PM [facility] Urine Microscopy Urine microscopy to follow 06/10/2023 2:12 PM [facility] Urine URINE SPECIMEN OBTAINED BY CLEAN CATCH PROCEDURE / Unknown Collection / Unknown 06/10/2023 2:07 PM GLUER MACHINE OPERATOR 06/10/2023 2:07 PM GLUER MACHINE OPERATOR Narrative [facility] - 06/10/2023 2:12 PM GLUER MACHINE OPERATOR Niko Vail PA-C LAB - URINALYSIS OR DERABLES [facility] [address] [place] [address] * URINE MICROSCOPIC ONLY (06/10/2023 2:07 PM GLUER MACHINE OPERATOR) Only the most recent of2 resultswithin the time period is included. RBC UA 3-5 0 - 5 # /hpf 06/10/2023 2:13 PM GLUER MACHINE OPERATOR [facility] WBC UA 0-5 0 - 5 # /hpf 06/10/2023 2:13 PM [facility] Bacteria UA None Seen None Seen 06/10/2023 2:13 PM [facility] Squamous Epithelial Cells None Seen 0 - 5 /hpf 06/10/2023 2:13 PM [facility] Urine URINE SPECIMEN OBTAINED BY CLEAN CATCH PROCEDURE / Unknown Collection / Unknown 06/10/2023 2:07 PM GLUER MACHINE OPERATOR 06/10/2023 2:07 PM GLUER MACHINE OPERATOR Narrative [facility] - 06/10/2023 2:13 PM GLUER MACHINE OPERATOR Niko Vail PA-C LAB - URINALYSIS OR DERABLES [facility] [address] [place] [address] * US ABDOMEN LIMITED (05/03/2023 9:44 AM CDT) Only the most recent of5 resultswithin the time period is included. Anatomical Region Laterality Modality Abdomen Ultrasound 05/03/2023 10:2 0 AM CDT Impressions 05/03/2023 10:30 AM CDT IMPRESSION: Normal-appearing liver. Patient status post prior cholecystectomy. Multiple benign-appearing thin-walled nonvascular right renal cysts noted as were visualized in greater detail on the prior CT scan of the abdomen and pelvis. Inadequate visualization of the pancreas. > Interpreting Provider: Chi Morelos MD on 05/03/2023 10:30 AM Narrative 05/03/2023 10:30 AM CDT PROCEDURE: US ABDOMEN LIMITED DATE/TIME OF EXAM: 05/03/2023 9:44 AM CLINICAL INFORMATION: None relevant/not provided if blank. Indication: E80.6: Other disorders of bilirubin metabolism Additional History: Hyperbilirubinemia. Patient status post prior cholecystectomy. COMPARISON: CT scan of the abdomen and pelvis dated 08/24/2022 and a renal sonogram dated 06/07/2022 TECHNIQUE: Real-time ultrasound of the upper abdomen with DICOM image capture performed by photonics engineering technologist. FINDINGS: Real-time ultrasound of the right upper quadrant was performed and measured the liver at approximately 17.1 cm in length. No discrete liver mass nor suggested intrahepatic biliary dilatation was identified. The gallbladder has apparently been removed since the CT scan dated 08/24/2022. Common bile duct ranged in measurements from approximately 0.2 to 0.6 cm. Flow was demonstrated at the level of the ame hepatis. Pancreas was insufficiently visualized for adequate assessment except for a portion of the pancreatic body which appeared to be grossly normal in appearance. Right kidney is measuring approximately 11.5 cm in length by 6.2 cm in AP dimensions by 5.6 cm in width. Right renal parenchymal cortical thickness measured 1.6 cm. As was seen on the prior CT scan there are multiple cysts of the right kidney. One in the inferior pole region measured 2.5 x 2.1 x 1.9 cm. One in the midportion, anterior in location measured 3.2 x 2.5 x 2.0 cm. A superior pole cyst measured 3.0 x 2.2 x 2.0 cm. No evidence of right-sided hydronephrosis nor solid renal mass. Procedure Note Chi Morelos MD - 05/03/2023 PROCEDURE: US ABDOMEN LIMITED DATE/TIME OF EXAM: 05/03/2023 9:44 AM CLINICAL INFORMATION: None relevant/not provided if blank. Indication: E80.6: Other disorders of bilirubin metabolism Additional History: Hyperbilirubinemia. Patient status post prior cholecystectomy. COMPARISON: CT scan of the abdomen and pelvis dated 08/24/2022 and a renal sonogram dated 06/07/2022 TECHNIQUE: Real-time ultrasound of the upper abdomen with DICOM image capture performed by photonics engineering technologist. FINDINGS: Real-time ultrasound of the right upper quadrant was performed and measured the liver at approximately 17.1 cm in length. No discrete liver mass nor suggested intrahepatic biliary dilatation was identified. The gallbladder has apparently been removed since the CT scan dated 08/24/2022. Common bile duct ranged in measurements from approximately0.2 to 0.6 cm. Flow was demonstrated at the level of the ame hepatis. Pancreas was insufficiently visualized for adequate assessment except fora portion of the pancreatic body which appeared to be grossly normal in appearance. Right kidney is measuring approximately 11.5 cm in length by 6.2 cm inAP dimensions by 5.6 cm in width. Right renal parenchymal corticalthickness measured 1.6 cm. As was seen on the prior CT scan there are multiplecysts of the right kidney. One in the inferior pole region measured 2.5 x 2.1x 1.9 cm. One in the midportion, anterior in location measured 3.2 x 2.5 x 2.0 cm. A superior pole cyst measured 3.0 x 2.2 x 2.0 cm. No evidence of right-sided hydronephrosis nor solid renal mass. IMPRESSION: Normal-appearing liver. Patient status post prior cholecystectomy. Multiple benign-appearing thin-walled nonvascular right renal cystsnoted as were visualized in greater detail on the prior CT scan of the abdomen and pelvis. Inadequate visualization of the pancreas. > Interpreting Provider: Chi Morelos MD on 05/03/2023 10:30 AM Maricruz Ramirez MD US ORDERABLES * LAB RESULTS ORDER (2023) Only the most recent of2 resultswithin the time period is included. 2023 Narrative 2023 Ordered by an unspecified provider. Scanned Document LAB - THERAPEUTIC DR DIANA MONITORING ORDERABLES * NM MYOCARD PERF REST STRESS (02/06/2023 11:02 AM CDT) Anatomical Region Laterality Modality Chest Nuclear Digisoni cs 02/06/2023 9:31 AM CDT Narrative Procedure Note Krystyna Helton DO - 02/06/2023 [address] [facility] [place] [address] Retrotope/heart Nuclear Myocardial Perfusion Scan Report Pat.Name: HUSSAIN DODSON Pat.ID: [id number] .Date: 02/06/2023 Refer.MD: Antoine Ramirez Exam Time: 9:31:00 AM Study Type:Nuclear Myocardial Perfusion Scan Weight: 201lb Age: 9 1955,67Y Sex: MALE Sonogrphr: Dieter Wu, [facility] Reason for Study: Chest pain, Preoperative evaluation, cataract, Shortness of breath History / Clinical: Hypertension, Diabetes, Current smoker, Hypertrophic cardiomyopathy, TIA, AFIB Procedures: Lexiscan Perfusion Scan, Gated Stress Visit ID: [id number] Risk Factors:Hypertension, Diabetes Clinical Symptoms:Chest pain, Shortness of breath Medications:Diabetic medications, Lipitor, Toprol, Hydralazine, Eliquis ++++++++++++++++++++++++++++++++++++ SUMMARY: ++++++++++++++++++++++++++++++++++++ FINDINGS: Myocardial perfusion imaging reveals normal distribution of the radiopharmaceutical isotope during the stress and rest imaging sets. Left ventricular cavity size appears normal in both imaging sets. Gated SPECT images reveal normal LV systolic function with a calculated ejection fraction of 72%. SUMMARY: 1. Normal myocardial perfusion study without evidence of ischemia. 2. Gated SPECT images demonstrate normal LV systolic function. ++++++++++++++++++++++++++++++++++++ STRESS: ++++++++++++++++++++++++++++++++++++ Baseline Vital Signs: Intervention Lexiscan Peak Dose 0.4 mg Atropine 0 Stress Test Results: Target HR 129 Symptoms and Complications: Signed 02/06/2023 06:39 PM Krystyna Helton DO Darell Haji MD [place] ORDERABLES * STRESS TEST EXERCISE (02/06/2023 8:50 AM CDT) Target HR 129 bpm [facility] Max Age Predicted HR 152 bpm [facility] Base ST Depression (mm) 0 mm [facility] Target HR Percent 67 % [facility] Baseline HR 64 bpm [facility] Stress peak HR 87 bpm [facility] Max HR Percent 57 % [facility] Stress HR recovery min 1 83 bpm [facility] Stress HR recovery min 2 85 bpm [facility] Baseline BP 184/[address] Depression (mm) 0 mm [facility] Anatomical Region Laterality Modality Cardiac Electrop hysiology Narrative 02/06/2023 5:39 PM CDT Stress: A pharmacological stress test was performed using regadenoson. Stress ECG: The ECG was negative for ischemia. No ischemic EKG changes during Lexiscan stress test. Nuclear perfusion images to be reported separately. Resting ECG ECG is abnormal. Sinus rhythm with first-degree AV block. Left anterior fascicular block. Poor R-wave progression. Resting ECG shows no clinically relevant ST- segment deviation. The ECG shows normal sinus rhythm. With first-degree AV block. Left anterior fascicular block. Poor R-wave progression Stress Findings A pharmacological stress test was performed using regadenoson. The patient had a maximal HR of 87 bpm (57 % of MPHR). The patient reported no symptoms during the stress test. Blood pressure demonstrated a normal response and heart rate demonstrated a normal response to stress. The patient's heart rate recovery was normal. The one minute heart rate recovery was 83 bpm. The two minute heart rate recovery was 85 bpm. Stress ECG No clinically relevant ST deviation was noted. There were no arrhythmias during stress. There were no arrhythmias during recovery. The ECG was negative for ischemia. Procedure Note Krystyna Helton, DO - 02/06/2023 Stress: A pharmacological stress test was performed usingregadenoson. Stress ECG: The ECG was negative for ischemia. No ischemic EKG changes during Lexiscan stress test. Nuclear perfusion images to be reported separately. Darell Haji MD [facility] * ETT LINE PERFORMABLE (10/27/2022 9:43 AM CDT) Narrative Julianna Friedman APRN-CRNA - 10/27/2022 9:43 AM CDT Julianna Friedman APRN-CRNA 10/27/2022 9:44 AM Endotracheal Tube Placement: Patient Location: OR. Intubation Event Date/Time: 10/27/2022 9:34 AM Procedure: intubation ([id number]). Procedure Section: Sedation: under general anesthesia. Indications for Airway Management: anesthesia Induction: standard IV Patient Position: sniffing Mask Ventilation: easy. Blade Type: Hunter Blade Size: 4 Laryngoscopy View: grade 1 (full cords) Intubation Adjuncts: stylet Tube: endotracheal tube Placement: oral Tube type: cuff - inflated Tube Size (MM): 8 Depth of Insertion (CM): 23 Measured From: gums Cuff volume (mL): 5 Cuff Inflated With: air Number of Attempts: 1. Placement Verified By: direct visualization, bilateral breath sounds, chest auscultation and CO2 monitor Tube secured with: adhesive tape. Difficult Airway? No. Procedure Start Time: 10/27/2022 9:34 AM. Staff Section Anesthesia Provider: Friedman, Julianna A, LAW WRITER-INSULATION MECHANIC, Performed the procedure Additional Comments: Dentition/oral mucosa unchanged from pre op exam following DVOI.. Hollis Jin DO GENERAL ANESTHESIA ORDERABLES * XR CHEST PA AND LATERAL (ROUTINE) (08/24/2022 7:32 AM GLUER MACHINE OPERATOR) Only the most recent of3 resultswithin the time period is included. Anatomical Region Laterality Modality Chest Radiographic Lázaro ging 08/24/2022 7:50 AM GLUER MACHINE OPERATOR Narrative 08/24/2022 7:51 AM GLUER MACHINE OPERATOR PROCEDURE: XR CHEST 2VW, DATE/TIME OF EXAM: 08/24/2022 7:33 AM, LOCATION [facility] INDICATION: R10.84: Generalized abdominal pain Findings/impression: No focal consolidation or pleural effusion is identified. The heart is normal in size. The aorta appears very tortuous but is unchanged. No pneumothorax is seen. Degenerative changes are suggested in the shoulders. > Interpreting Provider: Albert Villatoro MD on 08/24/2022 7:51 AM Procedure Note Albert Villatoro MD - 08/24/2022 PROCEDURE: XR CHEST 2VW, DATE/TIME OF EXAM: 08/24/2022 7:33 AM, LOCATION [facility] INDICATION: R10.84: Generalized abdominal pain Findings/impression: No focal consolidation or pleural effusion is identified. The heart is normal in size. The aorta appears very tortuous but is unchanged. No pneumothorax is seen. Degenerative changes are suggested in the shoulders. > Interpreting Provider: Albert Villatoro MD on 08/24/2022 7:51 AM Abelino Hernandez MD DIAGNOSTIC IMAGING ORDERABLES * TROPONIN I (08/24/2022 7:09 AM GLUER MACHINE OPERATOR) Only the most recent of15 resultswithin the time period is included. Troponin I 0.013 <0.038 ng/mL 08/24/2022 7:36 AM GLUER MACHINE OPERATOR [facility] Blood BLOOD SPECIMEN / Unknown Venipuncture / Unknown 08/24/2022 7:09 AM GLUER MACHINE OPERATOR 08/24/2022 7:09 AM GLUER MACHINE OPERATOR Abelino Hernandez MD LAB - CHEMISTRY ORD ERABLES Performing Organization Address [facility]/ZIP Co de Phone Number [facility] [address] [place] [address] * (ABNORMAL) RETIC COUNT (06/07/2022 7:52 AM GLUER MACHINE OPERATOR) Reticulocyte Count 1.43 0.5 - 1.7 % 06/07/2022 9:22 AM [facility] Reticulocyte Absolute 0.0543 0.0041 - 0.0971 x10E6/uL 06/07/2022 9:22 AM [facility] Reticulocyte Immature Fractionated 18.0(H) 0.9 - 14.3 % 06/07/2022 9:22 AM [facility] Hemoglobin Retic 22.9(L) 27.8 - 36.8 pg 06/07/2022 9:22 AM [facility] Blood BLOOD SPECIMEN / Unknown Lab Venipuncture / Unknown 06/07/2022 7:52 AM GLUER MACHINE OPERATOR 06/07/2022 8:02 AM GLUER MACHINE OPERATOR Jared Bansal MD LAB - HEMATOLOGY ORD ERABLES Performing Organization Address City/[facility] Co de Phone Number [facility] [address] [place] [address] * (ABNORMAL) IRON + TRANSFERRIN PANEL (06/07/2022 7:52 AM GLUER MACHINE OPERATOR) Iron 24(L) 65 - 175 ug/dL 06/07/2022 9:32 AM [facility] Transferrin 267 163 - 344 mg/dL 06/07/2022 9:32 AM [facility] TIBC Calculated 334 240 - 450 ug/dL 06/07/2022 9:32 AM [facility] Iron Saturation % 7(L) 20 - 50 % 06/07/2022 9:32 AM [facility] Blood BLOOD SPECIMEN / Unknown Lab Venipuncture / Unknown 06/07/2022 7:52 AM GLUER MACHINE OPERATOR 06/07/2022 8:03 AM GLUER MACHINE OPERATOR Jared Bansal MD LAB - CHEMISTRY JAYME BRUNER [facility] [address] [place] [address] * FERRITIN (06/07/2022 7:52 AM GLUER MACHINE OPERATOR) Only the most recent of3 resultswithin the time period is included. Ferritin 22 22 - 275 ng/mL 06/07/2022 9:52 AM GLUER MACHINE OPERATOR [facility] Blood BLOOD SPECIMEN / Unknown Lab Venipuncture / Unknown 06/07/2022 7:52 AM GLUER MACHINE OPERATOR 06/07/2022 8:03 AM GLUER MACHINE OPERATOR Jared Bansal MD LAB - CHEMISTRY JAYME BRUNER Performing Organization Address City/[facility]/ZIP Co de Phone Number [facility] [address] [place] [phone] * (ABNORMAL) URINE DRUG SCREEN IMMUNOASSAY (05/25/2022 3:36 AM CDT) Only the most recent of3 resultswithin the time period is included. Pathologist [facility] Amphetamines Screen Urine Not detected Not detected 05/25/2022 4:16 AM CDT [facility] Barbiturates Screen Urine Detected(A) Not detected 05/25/2022 4:16 AM CDT [facility] Benzodiazepines Screen Urine Not detected Not detected 05/25/2022 4:16 AM CDT [facility] Cannabinoids Screen Urine Not detected Not detected 05/25/2022 4:16 AM CDT [facility] Cocaine Screen Urine Not detected Not detected 05/25/2022 4:16 AM CDT [facility] Fentanyl Urine Not detected Not detected 05/25/2022 4:16 AM CDT [facility] Methadone Screen Urine Not detected Not detected 05/25/2022 4:16 AM CDT [facility] Opiate Screen Urine Not detected Not detected 05/25/2022 4:16 AM CDT [facility] Phencyclidine Screen Urine Not detected Not detected 05/25/2022 4:16 AM CDT [facility] Urine URINE / Unknown Collection / Unknown 05/25/2022 3:36 AM CDT 05/25/2022 3:41 AM CDT Narrative [facility] - 05/25/2022 4:16 AM CDT This drug screen is designed for MEDICAL purposes only. It is not to be used for legal purposes, including but not limited to worker's comp, police investigations, occupational issues, child custody, etc. Any positive result is only presumptive and must be confirmed with a separate confirmatory test ordered by the physician. Drug Screening Test Cutoff Values: AMPHETAMINES 1000 ng/mL BARBITURATES 200 ng/mL BENZODIAZEPINES 200 ng/mL CANNABINOIDS(THC) 50 ng/mL COCAINE 300 ng/mL FENTANYL 1 ng/mL METHADONE 300 ng/mL OPIATES 300 ng/mL PHENCYCLIDINE(PCP) 25 ng/mL Ani Santos MD LAB - URINE CHEMI STRY ORDERABLES [facility] [address] [place], [place] [id number] * EGD (05/24/2022 6:09 AM CDT) Report Endoscopy POC _ Patient Name: Hussain Dodson Procedure Date: 05/24/2022 6:09 AM Date of : 1955 Admit Type: Inpatient Age: 67 Gender: Male Ethnicity: Not or Race: Black or Attending MD: Alberto Sahu MD _ Procedure: Upper GI endoscopy Indications: Hematemesis Providers: Alberto Sahu MD (Doctor), Darron Goetz RN Referring MD: Maricruz Ramirez MD (Referring MD) Medicines: Monitored Anesthesia Care Complications: No immediate complications. _ Estimated Blood Loss: Estimated blood loss: none. Procedure: Pre-Anesthesia Assessment: - Prior to the procedure, a History and Physical was performed, and patient medications and allergies were reviewed. The patient's tolerance of previous anesthesia was also reviewed. The risks and benefits of the procedure and the sedation options and risks were discussed with the patient. All questions were answered, and informed consent was obtained. Prior Anticoagulants: The patient has taken no previous anticoagulant or antiplatelet agents. ASA Grade Assessment: II - A patient with mild systemic disease. After reviewing the risks and benefits, the patient was deemed in satisfactory condition to undergo the procedure. After obtaining informed consent, the endoscope was passed under direct vision. Throughout the procedure, the patient's blood pressure, pulse, and oxygen saturations were monitored continuously. The Endoscope was introduced through the mouth, and advanced to the second part of duodenum. Moderate sedation was administered for [ ] minutes The upper GI endoscopy was accomplished without difficulty. The patient tolerated the procedure well. Impression: - Moderately severe acute and erosive esophagitis with no bleeding. Biopsied. - Gastritis. Biopsied. - Normal duodenal bulb, first portion of the duodenum and second portion of the duodenum. - Hiatal hernia. - Esophageal ulcer. Biopsied. Findings: Moderately severe esophagitis with no bleeding was found in the entire esophagus. Biopsies were taken with a cold forceps for histology. Localized mild inflammation characterized by erythema was found in the gastric antrum. Biopsies were taken with a cold forceps for Helicobacter pylori testing using CLOtest. Estimated blood loss: none. The duodenal bulb, first portion of the duodenum and second portion of the duodenum were normal. A hiatal hernia was present. One cratered and superficial esophageal ulcer was found in the entire esophagus. Biopsies were taken with a cold forceps for histology. _ Recommendation: - Written discharge instructions were provided to the patient. - The signs and symptoms of potential delayed complications were discussed with the patient. - Patient has a contact number available for emergencies. - Return to normal activities tomorrow. - Resume previous diet. - Continue present medications. - Await pathology results. Procedure Code(s): --- Professional --- 49936, Esophagogastroduo denoscopy, flexible, transoral; with biopsy, single or multiple --- Technical --- 75092, Esophagogastroduo denoscopy, flexible, transoral; with biopsy, single or multiple Diagnosis Code(s): --- Professional --- K20.80, Other esophagitis without bleeding K29.70, Gastritis, unspecified, without bleeding K44.9, Diaphragmatic hernia without obstruction or gangrene K22.10, Ulcer of esophagus without bleeding K92.0, Hematemesis --- Technical --- K20.80, Other esophagitis without bleeding K29.70, Gastritis, unspecified, without bleeding K44.9, Diaphragmatic hernia without obstruction or gangrene K22.10, Ulcer of esophagus without bleeding K92.0, Hematemesis CPT copyright 2019 [employer]. All rights reserved. The codes documented in this report are preliminary and upon town planner review may be revised to meet current compliance requirements. Alberto Sahu MD 05/24/2022 7:04:14 AM This report has been signed electronically. Number of Addenda: 0 Note Initiated On: 05/24/2022 6:09 AM [facility] 05/24/2022 6:09 AM CDT Alberto Sahu MD GI PROCEDURE ORDERAB LES [facility] * Critical Care (05/22/2022 6:45 PM CDT) Narrative Barby Lamb DO - 05/22/2022 6:45 PM CDT Barby Lamb DO 05/22/2022 7:06 PM Critical Care Performed by: Barby Lamb DO Authorized by: Barby Lamb DO Critical care provider statement: Critical care time (minutes): 45 Critical care start time: 05/22/2022 6:15 PM Critical care end time: 05/22/2022 7:04 PM Critical care was necessary to treat or prevent imminent or life-threatening deterioration of the following conditions: Dehydration (gi hemorrhage) Critical care was time spent personally by me on the following activities: Discussions with consultants, discussions with primary provider, evaluation of patient's response to treatment, examination of patient, ordering and review of radiographic studies, ordering and review of laboratory studies and review of old charts I assumed direction of critical care for this patient from another provider in my specialty: yes Barby Lamb DO PROCEDURE/MINOR SURG ICAL ORDERABLES * XR SHOULDER RIGHT 2VW OR MORE (04/18/2022 4:57 PM CDT) Only the most recent of2 resultswithin the time period is included. Anatomical Region Laterality Modality Upper Extremity Radiographic Lázaro ging 04/19/2022 7:16 AM CDT Impressions 04/19/2022 12:07 PM CDT IMPRESSION: Redemonstration of a cortical step-off along the anterior inferior glenoid, consistent with a chronic fracture. Report dictated by Michel Fisher MD (vice president business development). > Dictated by Michel Fisher (Feed Mixer Helper) 04/19/2022 8:53 AM IChi MD have personally reviewed and interpreted this examination/study. > Interpreting Provider: Chi Jarvis MD on 04/19/2022 12:07 PM Narrative 04/19/2022 12:07 PM CDT PROCEDURE: XR SHOULDER RIGHT 2VW OR MORE, DATE/TIME OF EXAM: 04/18/2022 4:57 PM, LOCATION [facility] INDICATION: I63.9: Cerebrovascular accident (CVA), unspecified mechanism ADDITIONAL CLINICAL INFORMATION: Ordering Provider Reason For Exam: Underlying fracture COMPARISON: X-ray shoulder from 03/29/2022. FINDINGS: Redemonstration of a cortical step-off along the anterior inferior glenoid, consistent with a chronic fracture. There is no dislocation. There are mild degenerative changes of the acromioclavicular joint. An insulin pump projects over the upper arm. Procedure Note Chi Jarvis MD - 04/19/2022 PROCEDURE: XR SHOULDER RIGHT 2VW OR MORE, DATE/TIME OF EXAM: 04/18/2022 4:57 PM, LOCATION [facility] INDICATION: I63.9: Cerebrovascular accident (CVA), unspecified mechanism ADDITIONAL CLINICAL INFORMATION: Ordering Provider Reason For Exam: Underlying fracture COMPARISON: X-ray shoulder from 03/29/2022. FINDINGS: Redemonstration of a cortical step-off along the anterior inferiorglenoid, consistent with a chronic fracture. There is no dislocation. There aremild degenerative changes of the acromioclavicular joint. An insulin pump projects over the upper arm. IMPRESSION: Redemonstration of a cortical step-off along the anterior inferiorglenoid, consistent with a chronic fracture. Report dictated by Michel Fisher MD (vice president business development). > Dictated by Michel Fisher (Feed Mixer Helper) 04/19/2022 8:53 AM I, Chi Jarvis MD have personally reviewed and interpreted this examination/study. > Interpreting Provider: Chi Jarvis MD on 04/19/2022 12:07 PM Panda Winston MD DIAGNOSTIC IMAGING O RDERABLES * ECHO COMPLETE W BUBBLE STUDY (04/17/2022 3:09 PM CDT) Anatomical Region Laterality Modality Chest Echo 04/17/2022 2:03 PM CDT Narrative Procedure Note Keli Otero MD - 04/17/2022 Penelope Romero MD ECHOCARDIOGRAPHY RAD IANT * MRI BRAIN WO CONTRAST (04/15/2022 4:11 PM CDT) Only the most recent of2 resultswithin the time period is included. Anatomical Region Laterality Modality Head Magnetic Resonan ce 2022 12:0 9 PM CDT Impressions 2022 12:25 PM CDT IMPRESSION: 1.No evidence of restricted diffusion to suggest an acute infarction. 2.Generalized volume loss loss and nonspecific but matter changes, likely vascular related. 3.Ventricular prominence is disproportionate to sulcal dilation which is a nonspecific finding and possibly related to central volume loss however, a superimposed element of normal pressure hydrocephalus cannot be excluded and should be correlated clinically. > Interpreting Provider: Meagan Lorenzo MD on 2022 12:25 PM Narrative 2022 12:25 PM CDT PROCEDURE: MRI BRAIN WO CONTRAST, DATE/TIME OF EXAM: 04/15/2022 4:11 PM, LOCATION [facility] INDICATION: I63.9: Cerebrovascular accident (CVA), unspecified mechanism ADDITIONAL CLINICAL INFORMATION: Ordering Provider Reason For Exam: Stroke Technologist Note: Does the patient have metal implants or stents?->No Additional: None. EXAMINATION: Magnetic resonance imaging (MRI) of the brain without contrast CONTRAST: None. TECHNIQUE: MRI of the brain was performed without contrast according to standard protocol. COMPARISON: CT of the head from 04/15/2022. MRI of the brain from 11/18/2021. FINDINGS: The images are degraded due to motion artifacts. Within this limitation: No evidence of acute or chronic hemorrhage is identified. No evidence of acute cerebral infarction is seen. There is moderate cerebral and cerebellar volume loss with associated ex vacuo ventricular dilatation. Ventricular prominence is disproportionate to sulcal dilation which is a nonspecific finding and likely related to central volume loss. A superimposed element of normal pressure hydrocephalus however cannot be excluded and should be correlated clinically. No mass effect or midline shift is seen. Periventricular, subcortical, and pontine white matter FLAIR hyperintensities likely represent sequelae of chronic small vessel ischemic disease. Old lacunar infarcts are present in the daniella. The corpus callosum is thinned out. The sella turcica is stable in appearance. The posterior fossa, brainstem, and craniocervical junction appear grossly unremarkable. The visualized portions of the orbits appear grossly unremarkable. There are small nathaly bullosa of the middle turbinates bilaterally, partially opacified on the right. Scattered opacification in the ethmoid air cells, right more than left. Moderate polypoid mucosal thickening in the right maxillary sinus. Mild mucosal thickening in the remaining paranasal sinuses. The imaged mastoid air cells appear grossly clear. Normal flow voids are demonstrated in the carotid arteries and basilar artery. The calvarium and visualized cervical spine appear grossly unremarkable. Procedure Note Meagan Lorenzo MD - 2022 PROCEDURE: MRI BRAIN WO CONTRAST, DATE/TIME OF EXAM: 04/15/2022 4:11PM, LOCATION [facility] INDICATION: I63.9: Cerebrovascular accident (CVA), unspecified mechanism ADDITIONAL CLINICAL INFORMATION: Ordering Provider Reason For Exam: Stroke Technologist Note: Does the patient have metal implants or stents?->No Additional: None. EXAMINATION: Magnetic resonance imaging (MRI) of the brain withoutcontrast CONTRAST: None. TECHNIQUE: MRI of the brain was performed without contrast according to standard protocol. COMPARISON: CT of the head from 04/15/2022. MRI of the brain from11/18/2021. FINDINGS: The images are degraded due to motion artifacts. Within this limitation: No evidence of acute or chronic hemorrhage is identified. No evidence of acute cerebral infarction is seen. There is moderate cerebral and cerebellar volume loss with associated ex vacuo ventricular dilatation. Ventricular prominence is disproportionate to sulcal dilation which is a nonspecific finding and likely related to central volume loss. A superimposed element of normal pressure hydrocephalus however cannot be excluded and should be correlated clinically. No mass effect or midline shift is seen. Periventricular, subcortical, and pontine white matterFLAIR hyperintensities likely represent sequelae of chronic small vesselischemic disease. Old lacunar infarcts are present in the daniella. The corpuscallosum is thinned out. The sella turcica is stable in appearance. The posterior fossa, brainstem, and craniocervical junction appear grosslyunremarkable. The visualized portions of the orbits appear grossly unremarkable. There are small nathaly bullosa of the middle turbinates bilaterally, partially opacified on the right. Scattered opacification in the ethmoid aircells, right more than left. Moderate polypoid mucosal thickening in the right maxillary sinus. Mild mucosal thickening in the remaining paranasal sinuses. The imaged mastoid air cells appear grossly clear. Normal flow voids are demonstrated in the carotid arteries and basilar artery. The calvarium and visualized cervical spine appear grossly unremarkable. IMPRESSION: 1.No evidence of restricted diffusion to suggest an acute infarction. 2.Generalized volume loss loss and nonspecific but matter changes,likely vascular related. 3.Ventricular prominence is disproportionate to sulcal dilation which [place] nonspecific finding and possibly related to central volume loss however,a superimposed element of normal pressure hydrocephalus cannot be excluded and should be correlated clinically. > Interpreting Provider: Meagan Lorenzo MD on 2022 12:25 PM Penelope Romero MD MR ORDERABLES * PT-INR [facility] (04/14/2022 3:50 PM CDT) Only the most recent of3 resultswithin the time period is included. PT 14.7 12.1 - 14.8 Seconds 04/14/2022 4:20 PM CDT [facility] INR 1.2 See Comment 04/14/2022 4:20 PM CDT [facility] Comment:The suggested therap eutic range for standard coumadin (warfarin) therapy is an INR of 2.0-3.0. For high-risk patients (Mechanical Mitral Valve Prosthesis, etc.), the suggested prophylactic therapeutic range is an INR of 2.5-3.5. Blood BLOOD SPECIMEN / Unknown Venipuncture / Unknown 04/14/2022 3:50 PM CDT 04/14/2022 3:59 PM CDT Penelope Romero MD LAB - COAGULATION OR DERABLES [address] [address], [facility] [phone] * INR WHOLE BLOOD - POINT OF CARE (IP) STROKE (04/14/2022 3:43 PM CDT) INR 1.0 0.9 - 1.2 04/14/2022 5:56 PM CDT [facility] Device [id number] 04/14/2022 5:56 PM CDT [facility] Iron Worker Foreman ID [id number] 04/14/2022 5:56 PM CDT [facility] Blood BLOOD SPECIMEN / Unknown 04/14/2022 3:43 PM CDT 04/14/2022 5:56 PM CDT Penelope Romero MD LAB - POINT OF CARE ORDERABLES [facility] [address] [place] [address], [place] [phone] * (ABNORMAL) CREATININE - POCT INTERFACED (04/14/2022 3:42 PM CDT) [facility] Creatinine POCT 1.49(H) 0.30 - 1.30 mg/dL 04/14/2022 5:57 PM CDT [facility] eGFR 51(L) >90 mL/min/1.7 3 m2 04/14/2022 5:57 PM CDT [facility] Blood BLOOD SPECIMEN / Unknown 04/14/2022 3:42 PM CDT 04/14/2022 5:57 PM CDT Penelope Romero MD LAB - POINT OF CARE ORDERABLES [facility] [address] [place] [id number], [place] [phone] * CT ANGIO BRAIN NECK STROKE (04/14/2022 3:39 PM CDT) Anatomical Region Laterality Modality Head Computed Tomogra phy 04/14/2022 3:49 PM CDT Impressions 04/14/2022 4:00 PM CDT IMPRESSION: 1.Patent proximal intracranial arteries. 2.Decreased number of right MCA M3 and M4 branches with decreased density contrast. 3.No stenosis of cervical segments of carotid and vertebral arteries. > Interpreting Provider: Xiao Michaud MD on 04/14/2022 4:00 PM Narrative 04/14/2022 4:00 PM CDT PROCEDURE: CT ANGIO BRAIN NECK STROKE, DATE/TIME OF EXAM: 04/14/2022 3:54 PM, LOCATION [facility] INDICATION: Code Stroke COMPARISON: None. EXAMINATION: CT angiogram of the brain CT angiogram of the neck TECHNIQUE: CT angiography of the head and neck was obtained after administration of intravenous contrast. Three dimensional postprocessing was performed by the technologist and sent to the workstation for review. NASCET criteria was utilized for evaluation of carotid stenosis. Additionally, Viz.AI was used for large vessel occlusion detection. CT dose reduction technique was used, including Automated Exposure Control. CONTRAST: 75 mL of Isovue-370 was administered intravenously. FINDINGS: CTA brain: *Right carotid system: Normal caliber patent ICA without stenosis. Minimal calcification of ICA. Patent VIJAYA. Normal anterior communicating artery. Patent M1 and M2 segments. Decreased number of MCA M3 and M4 branches with decreased density contrast. *Left carotid system: Normal caliber patent ICA without stenosis. Minimal calcification of ICA. Patent VIJAYA and MCA. Normal anterior communicating artery. *Posterior circulation: Patent vertebral arteries and basilar artery without stenosis. Patent rice drier operator. origin of both rice drier operator. There is no aneurysm. The dural venous sinuses cannot be adequately evaluated due to arterial phase of contrast on this angiogram. CTA neck: *Aortic arch: Minimal calcification. No ostial stenosis. Two-vessel configuration of the branch vessel origin. *Right carotid system: Patent. No stenosis. Small calcified plaque at the proximal ICA. Medialization of ICA. *Left carotid system: Patent. No stenosis. Minimal calcified plaque at the proximal ICA. Medialization of ICA. *Right vertebral artery: Patent. No stenosis. No calcified plaque. *Left vertebral artery: Patent. No stenosis. No calcified plaque. Extravascular findings: *Dental disease. Maxillary mucosal thickening and opacification of ethmoid air cells bilaterally, right greater than left. *Multilevel degenerative changes with diffuse stenosis of the cervical spinal canal. Significant spinal canal stenosis at C3-4 and C4-5 resulting in apparent spinal cord compression. Moderate stenosis of bilateral C4-5 neural foramina. Procedure Note Xiao Michaud MD - 04/14/2022 PROCEDURE: CT ANGIO BRAIN NECK STROKE, DATE/TIME OF EXAM: :54 PM, LOCATION [facility] INDICATION: Code Stroke COMPARISON: None. EXAMINATION: CT angiogram of the brain CT angiogram of the neck TECHNIQUE: CT angiography of the head and neck was obtained after administration of intravenous contrast. Three dimensional postprocessing was performed by the technologist and sent to the workstation forreview. NASCET criteria was utilized for evaluation of carotid stenosis. Additionally, Viz.AI was used for large vessel occlusion detection. CTdose reduction technique was used, including Automated Exposure Control. CONTRAST: 75 mL of Isovue-370 was administered intravenously. FINDINGS: CTA brain: *Right carotid system: Normal caliber patent ICA without stenosis.Minimal calcification of ICA. Patent VIJAYA. Normal anterior communicating artery. Patent M1 and M2 segments. Decreased number of MCA M3 and M4 brancheswith decreased density contrast. *Left carotid system: Normal caliber patent ICA without stenosis.Minimal calcification of ICA. Patent VIJAYA and MCA. Normal anterior communicating artery. *Posterior circulation: Patent vertebral arteries and basilar artery without stenosis. Patent rice drier operator. origin of both rice drier operator. There is no aneurysm. The dural venous sinuses cannot be adequately evaluated due to arterial phase of contrast on this angiogram. CTA neck: *Aortic arch: Minimal calcification. No ostial stenosis. Two-vessel configuration of the branch vessel origin. *Right carotid system: Patent. No stenosis. Small calcified plaque atthe proximal ICA. Medialization of ICA. *Left carotid system: Patent. No stenosis. Minimal calcified plaque atthe proximal ICA. Medialization of ICA. *Right vertebral artery: Patent. No stenosis. No calcified plaque. *Left vertebral artery: Patent. No stenosis. No calcified plaque. Extravascular findings: *Dental disease. Maxillary mucosal thickening and opacification ofethmoid air cells bilaterally, right greater than left. *Multilevel degenerative changes with diffuse stenosis of the cervical spinal canal. Significant spinal canal stenosis at C3-4 and C4-5resulting in apparent spinal cord compression. Moderate stenosis of bilateral C4-5 neural foramina. IMPRESSION: 1.Patent proximal intracranial arteries. 2.Decreased number of right MCA M3 and M4 branches with decreaseddensity contrast. 3.No stenosis of cervical segments of carotid and vertebral arteries. > Interpreting Provider: Xiao Michaud MD on 04/14/2022 4:00 PM Penelope Romero MD CT ORDERABLES * CT BRAIN - Stroke (04/14/2022 3:32 PM CDT) Anatomical Region Laterality Modality Head Computed Tomogra phy 04/14/2022 3:34 PM CDT Impressions 04/14/2022 3:39 PM CDT IMPRESSION: 1.No acute intracranial abnormality. 2.No significant interval change since the study from approximately 2 hours. Results of this exam were verbally discussed by Dr. Xiao Michaud with Dr. Kingston on 04/14/2022 3:38 PM for a Critical Stroke Protocol with readback confirmation and verification. > Interpreting Provider: Xiao Michaud MD on 04/14/2022 3:39 PM Narrative 04/14/2022 3:39 PM CDT PROCEDURE: CT BRAIN STROKE, DATE/TIME OF EXAM: 04/14/2022 3:23 PM, LOCATION [facility] INDICATION: Code Stroke COMPARISON: CT head performed earlier the same day on 04/14/2022 at another institution, approximately 2 hours prior to the current study. EXAMINATION: CT scan of the head without intravenous contrast TECHNIQUE: CT of the head was performed without intravenous contrast according to standard protocol. CT dose reduction technique was used, including Automated Exposure Control. FINDINGS: There is no CT evidence of acute infarct. Small old infarcts are seen in bilateral basal ganglia. Confluent chronic microvascular ischemic changes are seen in the supratentorial white matter. There is moderate generalized cerebral and cerebellar volume loss. Central hypodensity in the daniella may represent sequela of prior osmotic demyelination versus old bilateral para midline infarcts. There is no acute hemorrhage. There is no hydrocephalus, midline shift or extra-axial fluid collection. There is no significant opacification of the paranasal sinuses and tympanomastoid cavities. The orbits are unremarkable. No significant osseous abnormality is noted. There is focal swelling of the right parietal scalp. Procedure Note Xiao Michaud MD - 04/14/2022 PROCEDURE: CT BRAIN STROKE, DATE/TIME OF EXAM: 04/14/2022 3:23 PM, LOCATION [facility] INDICATION: Code Stroke COMPARISON: CT head [facility] approximately 2 hours prior to the current study. EXAMINATION: CT scan of the head without intravenous contrast TECHNIQUE: CT of the head was performed without intravenous contrast according to standard protocol. CT dose reduction technique was used, including Automated Exposure Control. FINDINGS: There is no CT evidence of acute infarct. Small old infarcts are seen in bilateral basal ganglia. Confluent chronic microvascular ischemicchanges are seen in the supratentorial white matter. There is moderategeneralized cerebral and cerebellar volume loss. Central hypodensity in the daniella may represent sequela of prior osmotic demyelination versus old bilateralpara midline infarcts. There is no acute hemorrhage. There is no hydrocephalus, midline shiftor extra-axial fluid collection. There is no significant opacification of the paranasal sinuses and tympanomastoid cavities. The orbits are unremarkable. No significant osseous abnormality is noted. There is focal swelling of the rightparietal scalp. IMPRESSION: 1.No acute intracranial abnormality. 2.No significant interval change since the study from approximately 2 hours. Results of this exam were verbally discussed by Dr. Xiao Michaud with Dr. Kingston on 04/14/2022 3:38 PM for a Critical Stroke Protocol with readback confirmation and verification. > Interpreting Provider: Xiao Michaud MD on 04/14/2022 3:39 PM Penelope Romero MD CT ORDERABLES * VAS ARTERIAL ANKLE ARM INDEX (03/28/2022 3:03 PM CDT) Only the most recent of2 resultswithin the time period is included. Anatomical Region Laterality Modality Ankle / Foot, Upper Extremity Ul trasound 03/28/2022 2:21 PM CDT Narrative Procedure Note Kennedy Holliday MD - 03/29/2022 [place] [address] Lower Extremity Arterial Doppler Report Pat.Name: HUSSAIN DODSON Pat.ID: [id number] .Date: 03/28/2022 Exam Time: 2:21:00 PM Study Type:BRIGID/PVR Age: 9 1955,66Y Sex: MALE Sonogrphr: Maria Dolores Harris RVT, PREET Pat. Stat.:Outpatient ICD - 9: L81.9 CPT - 4: 32683 Reason for Study: discoloration of skin of lower leg History / Clinical: Hypertension, Diabetes, Current smoker, Hypertrophic cardiomyopathy Procedures: Ankle Arm Index Visit ID: [id number] ++++++++++++++++++++++++++++++++++++ SUMMARY: ++++++++++++++++++++++++++++++++++++ No evidence for significant arterial insufficiency of either the right or left lower extremity at rest. Bilateral digital tracings are pulsatile. ++++++++++++++++++++++++++++++++++++ FINDINGS: ++++++++++++++++++++++++++++++++++++ Procedure: The arterial vasculature of the lower extremities was evaluated by analysis of Doppler pressures and waveforms obtained in the legs at rest. Study Quality: Technically difficult exam due to body habitus. BRIGID: Rt ankle brachial index is 1.39. Left ankle brachial index is 1.56 (normal greater than 0.90). Arterial doppler waveforms of the right HOG MAN are triphasic. Arterial doppler waveforms of the right DPA are triphasic. Arterial doppler waveforms of the left HOG MAN are triphasic. Arterial doppler waveforms of the left DPA are triphasic. ++++++++++++++++++++++++++++++++++++ MEASUREMENTS: ++++++++++++++++++++++++++++++++++++ PRESSURES Left 1st Digit GreatToe P 0 mmHg GreatToe P 128 mmHg Left BRIGID (DP) BRIGID (DP) 1.4 Left BRIGID (PT) BRIGID (PT) 1.6 Left Ankle DP AnkleDP P 0 mmHg AnkleDP P 200 mmHg Left Ankle PT AnklePT P 0 mmHg AnklePT P 230 mmHg Left Brachial Brach P 0 mmHg Brach P 139 mmHg Left DBI DBI 0.87 Right 1st Digit GreatToe P 0 mmHg GreatToe P 184 mmHg Right BRIGID (DP) BRIGID (DP) 1.3 Right BRIGID (PT) BRIGID (PT) 1.4 Right Ankle DP AnkleDP P 0 mmHg AnkleDP P 188 mmHg Right Ankle PT AnklePT P 0 mmHg AnklePT P 205 mmHg Right Brachial Brach P 0 mmHg Brach P 147 mmHg Right DBI DBI 1.3 Signed 03/29/2022 05:46 PM Kennedy Stanton MD [facility] ORDERABLES * HEMOGLOBIN A1C (EXT RESULT ENTRY) (12/19/2021) Only the most recent of2 resultswithin the time period is included. Hemoglobin A1c (EXTERNAL RESULT) 11.5 % Blood BLOOD SPECIMEN / Unknown 12/19/2021 Jones Walter [facility] - CH EMISTRY ORDERABLES * EGD (10/28/2021 8:09 AM CDT) Report Endoscopy POC __ _ Patient Name: Hussain Dodson Procedure Date: 10/28/2021 8:09 AM Date of : 1955 Admit Type: Outpatient Age: 66 Gender: Male Ethnicity: Not or Race: Black or Attending MD: Alberto Sahu MD __ _ Procedure: Upper GI endoscopy Indications: Dysphagia Providers: Alberto Sahu MD (Doctor), Cady Ortiz RN, Manuela Hernandez, Cab Starter Referring MD: Maricruz Ramirez (Referring MD) Medicines: Midazolam mg IV, Monitored Anesthesia Care Complications: No immediate complications. __ _ Estimated Blood Loss: Estimated blood loss: none. Procedure: Pre-Anesthesia Assessment: - Prior to the procedure, a History and Physical was performed, and patient medications and allergies were reviewed. The patient's tolerance of previous anesthesia was also reviewed. The risks and benefits of the procedure and the sedation options and risks were discussed with the patient. All questions were answered, and informed consent was obtained. Prior Anticoagulants: The patient has taken no previous anticoagulant or antiplatelet agents. ASA Grade Assessment: II - A patient with mild systemic disease. After reviewing the risks and benefits, the patient was deemed in satisfactory condition to undergo the procedure. After obtaining informed consent, the endoscope was passed under direct vision. Throughout the procedure, the patient's blood pressure, pulse, and oxygen saturations were monitored continuously. The Endoscope was introduced through the mouth, and advanced to the second part of duodenum. Moderate sedation was administered for [ ] minutes Impression: - Esophageal ulcer. Biopsied. - Small hiatal hernia. - Gastritis. Biopsied. - Normal duodenal bulb. - Duodenitis. Biopsied. Findings: One cratered esophageal ulcer was found at the gastroesophageal junction. Biopsies were taken with a cold forceps for histology. Estimated blood loss: none. A small hiatal hernia was present. Localized minimal inflammation characterized by erythema was found in the gastric antrum. Biopsies were taken with a cold forceps for Helicobacter pylori testing using CLOtest. Estimated blood loss: none. The duodenal bulb was normal. Patchy mild inflammation characterized by erythema was found in the second portion of the duodenum. Biopsies were taken with a cold forceps for histology. Estimated blood loss: none. __ _ Recommendation: - Written discharge instructions were provided to the patient. - The signs and symptoms of potential delayed complications were discussed with the patient. - Patient has a contact number available for emergencies. - Return to normal activities tomorrow. - Resume previous diet. - Continue present medications. - Await pathology results. Procedure Code(s): --- Professional --- 25477, Esophagogastroduode noscopy, flexible, transoral; with biopsy, single or multiple --- Technical --- 23738, Esophagogastroduode noscopy, flexible, transoral; with biopsy, single or multiple Diagnosis Code(s): --- Professional --- K22.10, Ulcer of esophagus without bleeding K44.9, Diaphragmatic hernia without obstruction or gangrene K29.70, Gastritis, unspecified, without bleeding K29.80, Duodenitis without bleeding R13.10, Dysphagia, unspecified --- Technical --- K22.10, Ulcer of esophagus without bleeding K44.9, Diaphragmatic hernia without obstruction or gangrene K29.70, Gastritis, unspecified, without bleeding K29.80, Duodenitis without bleeding R13.10, Dysphagia, unspecified CPT copyright 2019 [employer]. All rights reserved. The codes documented in this report are preliminary and upon town planner review may be revised to meet current compliance requirements. Alberto Sahu MD 10/28/2021 8:23:59 AM This report has been signed electronically. Number of Addenda: 0 Note Initiated On: 10/28/2021 8:09 AM [facility] 10/28/2021 8:09 AM CDT Alberto Sahu MD GI PROCEDURE ORDERAB LES [facility] END[facility] * RPR (05/17/2021 11:07 AM CDT) RPR Non Reactive Non Reactive [facility] ACCOUNT BILL Comment: FASTING Blood BLOOD SPECIMEN / Unknown 05/17/2021 11:07 AM CDT 05/17/2021 Narrative Resulting Agency Comment Lab Testing performed at: [address] [id number] Maricruz Ramirez MD LAB - CHEMISTRY JAYME BRUNER Performing Organization Address City/[facility]/ZIP Co de Phone Number [facility] ACCOUNT BILL [address] [place] [address] * (ABNORMAL) VITAMIN B12 FOLATE PANEL (05/17/2021 11:07 AM CDT) Vitamin B12 593 213 - 816 pg/mL [facility] ACCOUNT BILL Folate 4.4(L) 7.0 - 31.4 ng/mL [facility] ACCOUNT BILL Comment: FASTING Blood BLOOD SPECIMEN / Unknown 05/17/2021 11:07 AM CDT 05/17/2021 Narrative Resulting Agency Comment Lab Testing performed at: [address] [id number] Maricruz Ramirez MD LAB - CHEMISTRY JAYME BRUNER Performing Organization Address [facility] Co de Phone Number [facility] ACCOUNT BILL [address] [place] [address] * LIPID PROFILE REFLEX LDL DIRECT (05/17/2021 11:06 AM CDT) Cholesterol 176 <200 mg/dL [facility] ACCOUNT BILL Triglycerides 118 <150 mg/dL [facility] ACCOUNT BILL HDL Cholesterol 50 >40 mg/dL [facility] ACCOUNT BILL VLDL Calculated 24 <=30 mg/dL [facility] ACCOUNT BILL LDL Calculated 102 <130 mg/dL [facility] ACCOUNT BILL Cholesterol/HDL Ratio 3.5 <4.5 [facility] ACCOUNT BILL LDL/HDL Ratio 2.0 <5.0 [facility] ACCOUNT BILL Comment: FASTING Blood BLOOD SPECIMEN / Unknown 05/17/2021 11:06 AM CDT 05/17/2021 Narrative Resulting Agency Comment Lab Testing performed at: [address] [id number] Jones Walter LAW WRITER-PAINT DEPARTMENT SUPERVISOR LAB - CH EMISTRY ORDERABLES Performing Organization Address City/[facility]/ZIP Co de Phone Number [facility] ACCOUNT BILL [address] [place] [address] * (ABNORMAL) HEMOGLOBIN A1C (EXTERNAL RESULT ENTRY) (03/29/2021) Only the most recent of2 resultswithin the time period is included. Hemoglobin A1c (EXTERNAL RESULT) 8.9(H) % Blood BLOOD SPECIMEN / Unknown 03/29/2021 Jones Walter LAW WRITER-PAINT DEPARTMENT SUPERVISOR LAB - CH EMISTRY ORDERABLES * XR HAND LEFT 3VW OR MORE (02/24/2021 12:47 PM CDT) Anatomical Region Laterality Modality Wrist / Hand Radiographic Lázaro ging 02/24/2021 1:00 PM CDT Impressions 02/24/2021 1:03 PM CDT IMPRESSION: 1. Unchanged mildly displaced radial styloid fracture. This report was electronically signed by CARMEN DOWLING on 02/24/2021 1:03 PM . Narrative 02/24/2021 1:03 PM CDT Examination: XR HAND LEFT 3VW OR MORE History: S62.102A: Closed fracture of left wrist, initial encounter Findings:Comparison to 01/20/2021. There is an unchanged mildly displaced radial styloid fracture. Unchanged chronic deformity of the ulnar styloid. 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 Procedure Note Carmen Dowling MD - 02/24/2021 Examination: XR HAND LEFT 3VW OR MORE History: S62.102A: Closed fracture of left wrist, initial encounter Findings:Comparison to 01/20/2021. There is an unchanged mildly displaced radial styloid fracture.Unchanged chronic deformity of the ulnar styloid. 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 IMPRESSION: 1. Unchanged mildly displaced radial styloid fracture. This report was electronically signed by CARMEN DOWLING on 02/24/2021 1:03PM . Charly Rice MD DIAGNOSTIC IMAGING O RDERABLES * XR WRIST LEFT 3VW OR MORE (01/20/2021 12:32 PM CDT) Only the most recent of2 resultswithin the time period is included. Anatomical Region Laterality Modality Wrist / Hand Radiographic Lázaro ging 01/20/2021 3:00 PM CDT Impressions 01/20/2021 3:02 PM CDT FINDINGS/IMPRESSION: There has been progressive healing of the radial styloid fracture. Osseous alignment is unchanged. There is again mild osteoarthritis at the distal radioulnar joint and radiocarpal joint. This report was electronically signed by JAIDEN BOWERS on 01/20/2021 3:02 PM . Narrative 01/20/2021 3:02 PM CDT EXAMINATION: XR WRIST LEFT 3VW OR MORE HISTORY: S62.102D: Closed fracture of left wrist with routine healing, subsequent encounter COMPARISON: 12/30/2020 Procedure Note Jaiden Bowers MD - 01/20/2021 EXAMINATION: XR WRIST LEFT 3VW OR MORE HISTORY: S62.102D: Closed fracture of left wrist with routine healing, subsequent encounter COMPARISON: 12/30/2020 FINDINGS/IMPRESSION: There has been progressive healing of the radial styloid fracture.Osseous alignment is unchanged. There is again mild osteoarthritis at the distal radioulnar joint and radiocarpal joint. This report was electronically signed by JAIDEN BOWERS on 01/20/2021 3:02 PM . Charly Rice MD DIAGNOSTIC IMAGING O RDERABLES * EVENT MONITOR (12/20/2020) Impressions JayjayPalak - 12/20/2020 [facility] [place] - Event Monitor Name: Hussain Dodson : 1955 Date of service: 11/18/2020 Referring Physician: Maricruz Ramirez MD Ordering Physician: Dr. Haji Clinical Indication: Patient is a/an 65 year old year old with syncope Findings: The patient was monitored for a total of 30 days. Average heart rate during monitoring was 79 beats per minute. Heart rate ranged from 50 per up to 180 beats per minute. PACs and PVCs were present, both occurring less than 1 percent of total beats. No atrial fibrillation was present during monitoring. SVT occurred 3 times. Fastest episode occurred at a rate of 173 beats per minute lasting 10 beats. VT occurred 3 times, longest episode 12 beats at a rate of 180 beats per minute. There were 33 asymptomatic auto triggered events, including the above-listed episodes of SVT and nonsustained VT. First-degree AV block was also noted. Conclusion: Sinus rhythm with rare brief SVT and VT. Rare PACs and PVCs. No recurrence of syncope. Thank you. Please do not hesitate to call if there are any questions. Krystyna Helton, DO [facility] [place] Darell Haji MD CARDIAC SERVICES ORDERABLES * XR CERVICAL SPINE 2 OR 3VW (11/19/2020 12:03 PM CDT) Anatomical Region Laterality Modality Spine Radiographic Lázaor ging 11/19/2020 12:1 6 PM CDT Addenda Addendum by Meagan Lorenzo MD on 11/25/2020 10:18 AM CDT Correction of typographical error: FINDINGS/IMPRESSION should read: The seventh cervical vertebral is obscured due to the shoulder shadows, on the lateral view. Relative straightening of the cervical lordosis. The vertebral body heights are maintained. No evidence of acute fracture. Minimal decreased disc space height at C4-C5. A cardiac device overlaying the upper chest. *Addending Radiologist: Meagan Lorenzo on 11/25/2020 at 10:15 AM Narrative 11/19/2020 12:17 PM CDT XR CERVICAL SPINE 2 OR 3VW*[id number] EXAMINATION: X-ray of the cervical spine, 4 views Exam Date: 11/19/2020 11:54 AM HISTORY: Radiculopathy, cervical region COMPARISON: No prior study is available for comparison. FINDINGS/IMPRESSION: The seventh cervical vertebral is obscured due to the shoulder shadows, on the lateral view. Relative straightening of the cervical lordosis. The vertebral body heights are maintained. No evidence of acute fracture. Minimal decreased disc space height at L4-L5 and L5-S1. A cardiac device overlaying the upper chest. *Reading Radiologist: Meagan Lorenzo on 11/19/2020 at 12:17 PM Procedure Note Meagan Lorenzo MD - 11/19/2020 XR CERVICAL SPINE 2 OR 3VW*[id number] EXAMINATION: X-ray of the cervical spine, 4 views Exam Date: 11/19/2020 11:54 AM HISTORY: Radiculopathy, cervical region COMPARISON: No prior study is available for comparison. FINDINGS/IMPRESSION: The seventh cervical vertebral is obscured due to the shoulder shadows, on the lateral view. Relative straightening of the cervical lordosis. The vertebral body heights are maintained. No evidence of acute fracture. Minimal decreased disc space height at L4-L5 and L5-S1. A cardiac device overlaying the upper chest. *Reading Radiologist: Meagan Lorenzo on 11/19/2020 at 12:17 PM Maricruz Ramirez MD DIAGNOSTIC IMAGING O RDERABLES * XR HAND BILAT 3VW OR MORE (11/10/2020 11:11 PM CDT) Anatomical Region Laterality Modality Upper Extremity, Wrist / Hand Ra diographic Imaging 11/11/2020 7:26 AM CDT Narrative 11/11/2020 8:30 AM CDT EXAM: Bilateral hands, two views. HISTORY: Hand pain. FINDINGS/IMPRESSION: Left wrist: There is a linear lucency seen along the radial styloid concerning for a distal wrist fracture which extends to the intra-articular surface. Soft tissue swelling is seen around the wrist. No other fracture is identified. Dedicated wrist views are recommended. Right wrist: No acute fracture or dislocation is seen in the right hand. Mild degenerative changes are suggested in the interphalangeal joints. Edited by Neyda Monique on 11/11/2020 8:17 AM *Reading Radiologist: Albert Villatoro on 11/11/2020 at 8:30 AM Procedure Note Albert Villatoro MD - 11/11/2020 EXAM: Bilateral hands, two views. HISTORY: Hand pain. FINDINGS/IMPRESSION: Left wrist: There is a linear lucency seen along the radial styloid concerning for a distal wrist fracture which extends to the intra-articular surface. Soft tissue swelling is seen around the wrist. No other fracture is identified. Dedicated wrist views are recommended. Right wrist: No acute fracture or dislocation is seen in the right hand. Mild degenerative changes are suggested in the interphalangeal joints. Edited by Neyda Monique on 11/11/2020 8:17 AM *Reading Radiologist: Albert Villatoro on 11/11/2020 at 8:30 AM Polina Salcedo MD DIAGNOSTIC IMAGING O RDERABLES * Neuraxial Block (07/08/2020 12:52 PM GLUER MACHINE OPERATOR) Narrative Kari Michael, LAW WRITER-INSULATION MECHANIC - 07/08/2020 12:52 PM GLUER MACHINE OPERATOR Kari Michael APRN-INSULATION MECHANIC 07/08/2020 1:38 PM Neuraxial Block Note Pre-Procedure: Procedure Name: Neuraxial Block Patient Location: OR Indications: surgical anesthesia Pre-Anesthetic Checklist: Patient identified, IV Checked, Risks and benefits discussed, Surgical consent verified, Monitors and equipment, Site examined, Pre-op evaluation done, Time-out performed, Informed consent obtained, Questions answered/anesthesia questions answered and Allergies reviewed Anticoagulation/ Anti-thrombosis status confirmed? Yes Supplemental O2: face mask Monitors: continuous pluse ox, BP and End tidal CO2 Patient Condition: awake Patient Sedated? No Procedure: Block Type: Spinal Prep: Betadine Sterile Field: mask, cap/hat, sterile established and sterile gloves Approach: midline Skin was localized? Yes Skin localized with: lidocaine (XYLOCAINE) 1 % injection, 2 mL Spinal Block: Needle Type: spinal needle Needle Gauge: 22 Needle Length: 90 mm Placement Site: L2-3 Number of Attempts: 2 CSF: free flow, aspiration before injection, aspiration during injection Local anesthetics used? Yes Spinal local anesthetics/Additives: bupivacaine 0.75 % in dextrose (SENSORCAINE) injection, 15 mg Degree of difficulty: moderate Procedure Tolerance: tolerated well Sensory Level: T6 Motor Blockade: Yes Position post procedure: head of bed elevated 30 degrees, sitting (sitting for 30 seconds then supine with head elevated) Vital Signs: Vital signs monitored and stable throughout. See anesthesia record for details., Vital signs moniitored and stable throughout. See nursing vitals flowsheet for details. Start Time: 07/08/2020 12:39 PM End Time: 07/08/2020 12:52 PM Total Time: 13 Staff: Anesthesia Provider: Jose Frank MD - performed the procedure Jose Frank MD GENERAL ANESTHESIA O RDERABLES * SARS-COV-2 (COVID-19) IN HOUSE (07/06/2020 12:39 PM GLUER MACHINE OPERATOR) Only the most recent of2 resultswithin the time period is included. COVID-19 PCR Not detected Not detected 07/06/2020 9:16 PM GLUER MACHINE OPERATOR [facility] Microbiology SPECIMEN FROM NASOPHARYNGEAL STRUCTURE / Unknown Collection / Unknown 07/06/2020 12:39 PM GLUER MACHINE OPERATOR 07/06/2020 12:44 PM GLUER MACHINE OPERATOR Narrative [facility] - 07/06/2020 9:16 PM GLUER MACHINE OPERATOR This nucleic acid amplification assay performance was validated by [facility]. This test has been authorized by the Food and Drug administration (FDA)under an Emergency Use Authorization (EUA). This test has been validated in accordance with the FDA's guidance document Policy for Diagnostic Testing in Laboratories Certified to perform High Complexity Testing under CLIA prior to Emergency Use Authorization for Coronavirus Disease-2019 during the Public Health Emergency issued on September 27, 2019. FDA independent review of this validation is pending. This test is only authorized for the duration of time the declaration that circumstances exist justifying the authorization of emergency use of in vitro diagnostic tests for detection of SARS-CoV-2 virus and/or diagnosis of COVID-19 infection under section 564(b)(1) of the Act, 21 U.S.C 360bbb-3 (b)(1), unless the authorization is terminated or revoked sooner. Fact Sheets for this EUA assay are available upon request. Greg He MD LAB - MICROBIOLOGY O RDERABLES [facility] [address] [place] [address], [facility] [phone] * HEPATITIS C RNA QUANTITATIVE (02/25/2020 9:09 AM CDT) Only the most recent of5 resultswithin the time period is included. Pathologist [facility] Hepatitis C RNA PCR, Interp Not Detected Not Detected 02/26/2020 4:48 PM CDT [facility] Blood BLOOD SPECIMEN / Unknown Lab Venipuncture / Unknown 02/25/2020 9:09 AM CDT 02/25/2020 9:26 AM CDT Narrative [facility] - 02/26/2020 4:48 PM CDT The Hepatitis C viral (HCV) RNA analysis utilized a serum sample, real-time reverse thread marker PCR, and is reported as Not Detected, [...] the isolation of HCV RNA with reverse thread marker of genomic HCV RNA followed by real-time PCR in the presence of an unrelated RNA internal control. The internal control ensures that RNA is isolated, and that no general significant inhibitors of the RT-PCR process are present. The analysis was performed using a U.S. FDA approved test methodology (SMGBB Real Time HCV). Yojana GOMES LAB - CHEMIS TRY ORDERABLES [facility] [address] [place] [address], [facility] [phone] * LARYNGEAL MASK AIRWAY (12/25/2019 8:03 AM CDT) Narrative Era Fraga MD - 12/25/2019 8:03 AM CDT Carlos Eduardo Sutton APRN-CRNA 12/25/2019 8:04 AM LMA Placement Procedure/LDA Note: Patient Location: OR. LMA Insertion Date/Time: 12/25/2019 7:48 AM Procedure: LMA. Pretreatment: 100% O2 Induction: standard IV Patient position: sniffing. Mask Ventilation: not attempted Type: LMA Size: 5 Number of Attempts: 1. Cuff volume (mL): 8 Placement verified by: bilateral breath sounds, chest auscultation and CO2 monitor Procedure Start Time: 12/25/2019 7:48 AM. Staff Section Anesthesia Provider: Herman, Carlos Eduardo O, LAW WRITER-INSULATION MECHANIC, Performed the procedure Provider #1: Era Fraga MD. Era Fraga MD GENERAL ANESTHESIA O RDERABLES * CHLAMYDIA + GC AMPLIFIED PROBE (STL) (12/11/2019 2:11 PM CDT) Chlamydia Amplified Probe Negative Negative 12/12/2019 8:12 AM CDT [facility] GC Amplified Probe Negative Negative 12/12/2019 8:12 AM CDT [facility] Microbiology URINE / Unknown Collection / Unknown 12/11/2019 2:11 PM CDT 12/11/2019 2:23 PM CDT Narrative [facility] - 12/12/2019 8:12 AM CDT Results based on detection/no detection of ribosomal RNA by amplified method. Jeronimo Cuadra MD LAB - MICROBIOLOGY O DENA Performing Organization Address City/[facility] Co de Phone Number [facility] [address] [phone] * RPR W REFLEX TO TITER (MONITOR) (12/11/2019 11:48 AM CDT) Pathologist [facility] RPR Monitor Nonreactive Nonreactive 12/12/2019 11:43 AM CDT [facility] Blood BLOOD SPECIMEN / Unknown Venipuncture / Unknown 12/11/2019 11:48 AM CDT 12/11/2019 11:58 AM CDT Jeronimo Cuadra MD LAB - CHEMISTRY JAYME BRUNER Performing Organization Address City/[facility]/ZIP Co de Phone Number [facility] [address] [place] [address] * PROC FIBROSCAN (10/06/2019 9:35 AM CDT) Narrative Nabil Champion MD - 10/06/2019 9:35 AM CDT Nabil Champion MD 10/07/2019 10:07 AM Diagnosis: Hepatitis C RN verified patient has no implanted devices and NPO for prior 3 hours. Vital signs taken, procedure explained and consent signed. Date of Exam: 10/06/2019 Liver Stiffness: (LSM, kPa) median: 15.0 IQR (interquartile range): 3.4 IQR/Median% (ideally < 30%): 23 CAP (controlled attenuation parameter): 284 Technical Difficulty: None Ordering Provider: Yojana Lyon NP Phone Fax Fibroscan interpretation: I have personally reviewed the Fibroscan report and associated tracings. The calculated Liver Stiffness Measurement (LSM, kPa) indicates that: The probability of advanced liver fibrosis is: high. The loss of ultrasound signal, (controlled attenuation parameter, CAP [dB/m]), indicates that the probability of hepatic steatosis is: moderate. Nabil Champion MD The following criteria are used to indicate the probability of advanced (stage 3-4) fibrosis: < 7.0 kPa: low 7.0-8.9 kPa: low to moderate 9.0-14.9 kPa: moderate 15-20 kPa: high > 20 kPa: very high Liver stiffness > 20 kPa is also associated with a high probability of complications of portal hypertension including varices and ascites. Liver stiffness > 50 kPa is associated with a high risk of variceal bleeding. These interpretations are based on the following published data: Rebecca PJ, Kari M, Mary M, et al. Accuracy of FibroScan controlled attenuation parameter and liver stiffness measurement in assessing steatosis and fibrosis in patients with nonalcoholic fatty liver disease. Gastroenterology 2019;156:3202-9114. Mark MS, Bridger R, Van Jacy ML, et al. Vibration-controlled transient elastography to assess fibrosis and steatosis in patients with nonalcoholic fatty liver disease. Clin Gastroenterol Hepatol 2019;17:156-163. Note: 1. Fibroscan cannot reliably identify earlier stages of fibrosis (ie distinguish F0 from F1 and F2) and thus a histologic stage cannot be predicted from the Fibroscan reading. 2. Assessing the likelihood of advanced fibrosis in patients with indeterminate liver stiffness measurement (LSM) by Fibroscan (e.g., 8-15 kPa) can be improved by also calculating the FIB4 score (Christiane et al. Hepatology Communications 2019;3:8364-7060) or NAFLD Fibrosis score (Keen et al. Clinical Gastroenterology and Hepatology 2019;17:9390-4813. from routine clinical data. 3. Liver stiffness can be increased by factors other than fibrosis including passive congestion, infiltrative processes, active alcoholism, biliary obstruction and marked inflammation. The interpretation of the Fibroscan result provided above may not have taken such clinical factors into account. Disease etiology also influences Fibroscan cutoff values for fibrosis stages and the following cutoffs have been proposed (Dalton et al, Clin Gastro Hepatol 2015; 13:27-36): Cutoffs for Stage 3 and Stage 4 fibrosis respectively: Hepatitis B: >9 and >11.7 kPa Hepatitis C: >9.5 and >12.5 kPa HCV-HIV: >11 and >14 kPa Cholestatic liver diseases: >10 and >17.9 kPa NAFLD/ATKINS: >10 and >14 kPa CAP estimates of steatosis: normal <200 dB/m mild 200 to 250 dB/m moderate 250-290 dB/m substantial > 290 dB/m (Note that Fibroscan is not a quantitative measure of liver fat.) These criteria are estimates and may change as additional supporting data becomes available. http://www.[email or web address] Yojana Lyon LAW WRITER-PAINT DEPARTMENT SUPERVISOR PROCEDURE/GA NOR SURGICAL ORDERABLES * EGD (09/26/2019 3:50 PM GLUER MACHINE OPERATOR) Report Endoscopy POC _ Patient Name: Hussain Dodson Procedure Date: 09/26/2019 3:50 PM Date of : 1955 Admit Type: Outpatient Age: 64 Gender: Male Ethnicity: Not or Race: Black or Attending MD: Alberto Sahu MD _ Procedure: Upper GI endoscopy Indications: Epigastric abdominal pain, Suspected gastro-esophageal reflux disease, Occult blood in stool Providers: Alberto Sahu MD (Doctor), Jerry Tyson, Cab Starter Referring MD: Vadim Gomez (Referring MD) Medicines: Monitored Anesthesia Care Complications: No immediate complications. _ Procedure: Pre-Anesthesia Assessment: - Prior to the procedure, a History and Physical was performed, and patient medications and allergies were reviewed. The patient's tolerance of previous anesthesia was also reviewed. The risks and benefits of the procedure and the sedation options and risks were discussed with the patient. All questions were answered, and informed consent was obtained. Prior Anticoagulants: The patient has taken no previous anticoagulant or antiplatelet agents. ASA Grade Assessment: II - A patient with mild systemic disease. After reviewing the risks and benefits, the patient was deemed in satisfactory condition to undergo the procedure. After obtaining informed consent, the endoscope was passed under direct vision. Throughout the procedure, the patient's blood pressure, pulse, and oxygen saturations were monitored continuously. The Endoscope was introduced through the mouth, and advanced to the second part of duodenum. The upper GI endoscopy was accomplished without difficulty. The patient tolerated the procedure well. Impression: - Normal esophagus. - Gastritis. Biopsied. - Normal duodenal bulb, first portion of the duodenum and second portion of the duodenum. Findings: The examined esophagus was normal. Localized mild inflammation characterized by erythema was found in the gastric antrum. Biopsies were taken with a cold forceps for Helicobacter pylori testing using CLOtest. Estimated blood loss: none. The duodenal bulb, first portion of the duodenum and second portion of the duodenum were normal. _ Recommendation: - Written discharge instructions were provided to the patient. - The signs and symptoms of potential delayed complications were discussed with the patient. - Patient has a contact number available for emergencies. - Return to normal activities tomorrow. - Resume previous diet. - Await pathology results. - Continue present medications. Procedure Code(s): --- Professional --- 47532, Esophagogastroduo denoscopy, flexible, transoral; with biopsy, single or multiple --- Technical --- 41955, Esophagogastroduo denoscopy, flexible, transoral; with biopsy, single or multiple Diagnosis Code(s): --- Professional --- K29.70, Gastritis, unspecified, without bleeding R10.13, Epigastric pain R19.5, Other fecal abnormalities --- Technical --- K29.70, Gastritis, unspecified, without bleeding R10.13, Epigastric pain R19.5, Other fecal abnormalities CPT copyright 2017 [employer]. All rights reserved. The codes documented in this report are preliminary and upon town planner review may be revised to meet current compliance requirements. Albetro Sahu MD 09/26/2019 4:14:02 PM This report has been signed electronically. Number of Addenda: 0 Note Initiated On: 09/26/2019 3:50 PM [facility] 09/26/2019 3:50 PM GLUER MACHINE OPERATOR Alberto Sahu MD GI PROCEDURE ORDERAB LES [facility] * BLOOD TYPE ABO+ RH PANEL (08/23/2019 4:28 AM GLUER MACHINE OPERATOR) ABO O 08/23/2019 6:30 AM GLUER MACHINE OPERATOR [facility] Rh Type Negative 08/23/2019 6:30 AM GLUER MACHINE OPERATOR [facility] Blood Bank BLOOD SPECIMEN / Unknown Lab Venipuncture / Unknown 08/23/2019 4:28 AM GLUER MACHINE OPERATOR 08/23/2019 4:47 AM GLUER MACHINE OPERATOR Martha Ledezma MD LAB - BLOOD BANK ORD ERABLES [facility] [address] [place], [place] [id number] [place] [address] * ANTIBODY SCREEN (08/23/2019 4:28 AM GLUER MACHINE OPERATOR) [facility] Antibody Screen Negative 08/23/2019 6:29 AM GLUER MACHINE OPERATOR [facility] Blood Bank BLOOD SPECIMEN / Unknown Lab Venipuncture / Unknown 08/23/2019 4:28 AM GLUER MACHINE OPERATOR 08/23/2019 4:47 AM GLUER MACHINE OPERATOR Martha Ledezma MD LAB - BLOOD BANK ORD TONG Performing Organization Address City/[facility]/ZIP Co de Phone Number [facility] [address] [place] [address] * AMMONIA (08/22/2019 11:15 PM GLUER MACHINE OPERATOR) [facility] Ammonia 28 18 - 72 umol/L 08/22/2019 11:35 PM GLUER MACHINE OPERATOR [facility] Blood BLOOD SPECIMEN / Unknown Venipuncture / Unknown 08/22/2019 11:15 PM GLUER MACHINE OPERATOR 08/22/2019 11:27 PM GLUER MACHINE OPERATOR Martha Ledezma MD LAB - CHEMISTRY JAYME BRUNER Performing Organization Address City/[facility]/ZIP Co de Phone Number [facility] [address] [place] [id number] * HEPATITIS B SURFACE ANTIBODY (06/20/2019 9:38 AM GLUER MACHINE OPERATOR) Only the most recent of2 resultswithin the time period is included. [facility] Hepatitis B Virus Surface Antibody Non-react ilya Non-react ilya 06/20/2019 10:50 AM [facility] Comment: < 8 mIU/mL Hepatitis B surface Antibody (HBsAb). Nonreactive for HBsAb - individual is considered not immune to Hepatitis B Virus infection. Hepatitis B Surface Antibody Quantitative 0.0 <8.0 mIU/mL 06/20/2019 10:50 AM [facility] Comment: Hepatitis B Surface Antibody Numeric Result Interpretation: Nonreactive: <8.0 mIU/mL Indeterminate: 8.0 - 12.0 mIU/mL Reactive: >12.0 mIU/mL Blood BLOOD SPECIMEN / Unknown Lab Venipuncture / Unknown 06/20/2019 9:38 AM GLUER MACHINE OPERATOR 06/20/2019 10:04 AM GLUER MACHINE OPERATOR Yojana Lyon LAW WRITER-PAINT DEPARTMENT SUPERVISOR LAB - CHEMIS TRY ORDERABLES [address] [phone] * HEPATITIS B CORE ANTIBODY (06/20/2019 9:38 AM GLUER MACHINE OPERATOR) Only the most recent of2 resultswithin the time period is included. HBc Antibody Total Non-reacti ve Non-reacti ve 06/20/2019 10:55 AM GLUER MACHINE OPERATOR [facility] Blood BLOOD SPECIMEN / Unknown Lab Venipuncture / Unknown 06/20/2019 9:38 AM GLUER MACHINE OPERATOR 06/20/2019 10:03 AM GLUER MACHINE OPERATOR Yojana Lyon LAW WRITER-PAINT DEPARTMENT SUPERVISOR LAB - CHEMIS TRY ORDERABLES Performing Organization Address City/[facility]/ZIP Co de Phone Number [address] [phone] * HEPATITIS B SURFACE ANTIGEN W RFLX CONFIRMATION (06/20/2019 9:38 AM GLUER MACHINE OPERATOR) Only the most recent of2 resultswithin the time period is included. Hepatitis B Virus Surface Antigen Non-reacti ve Non-reacti ve 06/20/2019 10:51 AM GLUER MACHINE OPERATOR [facility] Blood BLOOD SPECIMEN / Unknown Lab Venipuncture / Unknown 06/20/2019 9:38 AM GLUER MACHINE OPERATOR 06/20/2019 10:03 AM GLUER MACHINE OPERATOR Yojana Lyon LAW WRITER-PAINT DEPARTMENT SUPERVISOR LAB - CHEMIS TRY ORDERABLES [address] [phone] * COMPLETE PFT (05/27/2019 11:29 AM CDT) Narrative [facility] - 05/27/2019 11:29 AM CDT Elijah Beaulieu MD 05/27/2019 11:34 AM PULMONARY FUNCTION TEST FVC 4.04 L, 90 % predicted. Post bronchodilators 3.95 L, 88 % predicted. FEV1 2.94 L, 83 % predicted. Post bronchodilator 3.17 L, 89 % predicted. FEV1/ FVC ratio 73 %. FEF 25-75% 2.03 L, 57 % of predicted TLC 6.53 L, 96 % of predicted RV/ TLC ratio 38 %, 98 % of predicted. DLCO 26.6 mL / min/ mmHg, 108 % of predicted. Results: The flow volume loops and the volume time loops were reviewed and they were acceptable. The results show normal FVC, normal FEV1, and normal FEV1/ FVC ratio. FEF 25-75% is minimally decreased. Lung volumes show normal TLC and normal RV/ TLC ratio. Diffusion capacity is normal. Interpretation: No obstructive defect, normal spirometry. However FEF 25-75% is minimally decreased and could be suggestive of early small airway obstructive disease. There is no significant response to bronchodilators, but that does not preclude their clinical use. Lung volumes are normal. Diffusion capacity is normal. Please correlate clinically. Elijah Beaulieu MD, [facility]. Be advised that voice recognition software was used in the production of this record. Errors in interpretation may have been inadvertently missed during review. Procedure Note Elijah Beaulieu MD - 05/27/2019 11:29 AM CDT PULMONARY FUNCTION TEST FVC 4.04 L, 90 % predicted. Post bronchodilators 3.95 L, 88 %predicted. FEV1 2.94 L, 83 % predicted. Post bronchodilator 3.17 L, 89 %predicted. FEV1/ FVC ratio 73 %. FEF 25-75% 2.03 L, 57 % of predicted TLC 6.53 L, 96 % of predicted RV/ TLC ratio 38 %, 98 % of predicted. DLCO 26.6 mL / min/ mmHg, 108 % of predicted. Results: The flow volume loops and the volume time loops were reviewed and theywere acceptable. The results show normal FVC, normal FEV1, and normalFEV1/ FVC ratio. FEF 25-75% is minimally decreased. Lung volumes show normal TLC and normal RV/ TLC ratio. Diffusion capacity is normal. Interpretation: No obstructive defect, normal spirometry. However FEF 25-75% is minimallydecreased and could be suggestive of early small airway obstructivedisease. There is no significant response to bronchodilators, but thatdoes not preclude their clinical use. Lung volumes are normal. Diffusion capacity is normal. Please correlate clinically. Elijah Beaulieu MD, [facility]. Be advised that voice recognition software was used in the production ofthis record. Errors in interpretation may have been inadvertently missedduring review. Darell Haji MD RESPIRATORY THER APY ORDERABLES [facility] * ECHOCARDIOGRAM STRESS Walking Stress ECHO (03/12/2019 1:29 PM CDT) 03/12/2019 1:29 PM CDT Narrative [facility] - 03/13/2019 9:39 AM CDT [place] [id number] Exercise Stress Echocardiography Name: HUSSAIN DODSON MR #: [id number] Study date: 12-Mar-2019 : 1955 Age: 63 years Gender: Male Height: 72 in Weight: 208 lb BSA: 2.17 m Allergies: METFORMIN Warehouse Selector: JAYDA Keene Referring Physician: Darell Haji MD Reading Physician: Yifan Ernandez MD Nurse: Gerri Morocho RN CLINICAL QUESTION: Detection of coronary artery disease. HISTORY: The patient is a 63 year old male. Chest pain status: no chest pain. Coronary artery disease risk factors: dyslipidemia, hypertension, and diabetes mellitus. Cardiovascular history: none significant. Medications: a beta kera, aspirin, a lipid lowering agent, and diabetic medications. REST ECG: Normal sinus rhythm, Incomplete RBBB PROCEDURE: The procedure was explained to the patient and informed consent was obtained. Treadmill exercise testing was performed, using the Jewel protocol. Stress and rest echocardiographic evaluation with 2D imaging, spectral Doppler, and color Doppler was performed from multiple acoustic windows for evaluation of ventricular function. Systolic blood pressure was 129 mmHg, at the start of the study. Diastolic blood pressure was 76 mmHg, at the start of the study. The heart rate was 66 bpm, at the start of the study. JEWEL PROTOCOL: HR bpm SBP mmHg DBP mmHg Symptoms ST change Rhythm/conduct Baseline 66 129 76 none none NSR, no ectopy Stage 1 104 132 78 mild fatigue none sinus tach Stage 2 120 149 77 moderate fatigue none sinus tach Recovery 1 94 161 60 subsiding none NSR, no ectopy Recovery 3 80 159 72 none none NSR, no ectopy Average functional capacity for age is 8 minutes and 10 seconds. No medications or fluids given. STRESS SUMMARY: Duration of exercise was 5 min and 45 sec. The patient exercised to protocol stage 2. Maximal heart rate during stress was 122 bpm ( 78 % of maximal predicted heart rate). Target heart rate was not achieved. The heart rate response to stress was normal. Maximal systolic blood pressure during stress was 161 mmHg. There was normal resting blood pressure with an appropriate response to stress. The rate-pressure product for the peak heart rate and blood pressure was [address]. There was no chest pain during stress. The stress test was terminated due to moderate dyspnea and moderate fatigue. Stress EKG's demonstrated no ST or T wave changes for ischemia. Post stress images showed no wall motion abnormalities. Sensitivity limited due to target heart rate was not reached and heart rate dropped quickly after exercise. Dr. Ernandez reviewed and results given to patient. There were no stress arrhythmias or conduction abnormalities. STRESS 2D ECHOCARDIOGRAPHIC RESULTS: BASELINE: There were no regional wall motion abnormalities. Left ventricular size was normal. Overall left ventricular systolic function was normal. PEAK STRESS: There were no regional wall motion abnormalities. There was an appropriate reduction in left ventricular size. There was an appropriate augmentation in LV function. OTHER ECHOCARDIOGRAPHIC FINDINGS: Moderate discrete upper septal thickening. ECHO IMPRESSIONS: There was no echocardiographic evidence for stress-induced ischemia. SUMMARY: - Stress results: Duration of exercise was 5 min and 45 sec. Target heart rate was not achieved. There was no chest pain during stress. - Baseline: There were no regional wall motion abnormalities. - Peak stress: There were no regional wall motion abnormalities. - Echo image interpretation: There was no echocardiographic evidence for stress-induced ischemia. IMPRESSIONS: Normal study after submaximal exercise without reproduction of symptoms. There were no stress-induced wall motion abnormalities. The test had reduced sensitivity in detecting ischemia as the patient did not achieve target heart rate and heart rate rapidly declined before imaging. SYSTEM MEASUREMENT TABLES 2D Ao Diam: 3.7 cm LVOT Diam: 2.1 cm IVSd: 1.5 cm LVIDd: 3.9 cm LVIDs: 2.4 cm LVPWd: 1.2 cm CW AV VTI: 29.1 cm AV Vmax: 1.4 m/s AV Vmean: 1 m/s AV maxP.4 mmHg AV meanP.5 mmHg PW DOMINIQUE (VTI): 3.6 cm2 DOMINIQUE Vmax: 3.1 cm2 LVOT VTI: 31.2 cm LVOT Vmax: 1.3 m/s LVOT Vmean: 0.9 m/s LVOT maxP.6 mmHg LVOT meanP.7 mmHg Prepared and signed by Yifan Ernandez MD Signed 13-Mar-2019 09:39:13 Procedure Note Elvira Read - 03/13/2019 [place] [address] Exercise Stress Echocardiography Name: HUSSAIN DODSON MR #: [id number] Study date: 12-Mar-2019 : 1955 Age: 63 years Gender: Male Height: 72 in Weight: 208 lb BSA: 2.17 m Allergies: METFORMIN Warehouse Selector: JAYDA Keene Referring Physician: Darell Haji MD Reading Physician: Yifan Ernandez MD Nurse: Gerri Morocho RN CLINICAL QUESTION: Detection of coronary artery disease. HISTORY: The patient is a 63 year old male. Chest pain status: no chest pain. Coronary artery disease risk factors: dyslipidemia, hypertension, and diabetes mellitus. Cardiovascular history: none significant. Medications: a beta kera, aspirin, a lipid lowering agent, and diabetic medications. REST ECG: Normal sinus rhythm, Incomplete RBBB PROCEDURE: The procedure was explained to the patient and informed consent was obtained. Treadmill exercise testing was performed, using the Jewel protocol. Stress and rest echocardiographic evaluation with 2D imaging, spectral Doppler, and color Doppler was performed from multiple acoustic windows for evaluation of ventricular function. Systolic blood pressure was 129 mmHg, at the start of the study. Diastolic blood pressure was 76 mmHg, at the start of the study. The heart rate was 66 bpm, at the start of the study. JEWEL PROTOCOL: HR bpm SBP mmHg DBP mmHg Symptoms ST change Rhythm/conduct Baseline 66 129 76 none none NSR, no ectopy Stage 1 104 132 78 mild fatigue none sinus tach Stage 2 120 149 77 moderate fatigue none sinus tach Recovery 1 94 161 60 subsiding none NSR, no ectopy Recovery 3 80 159 72 none none NSR, no ectopy Average functional capacity for age is 8 minutes and 10 seconds. No medications or fluids given. STRESS SUMMARY: Duration of exercise was 5 min and 45 sec. The patient exercised to protocol stage 2. Maximal heart rate during stress was 122 bpm ( 78 % of maximal predicted heart rate). Target heart rate was not achieved. The heart rate response to stress was normal. Maximal systolic blood pressure during stress was 161 mmHg. There was normal resting blood pressure with an appropriate response to stress. The rate-pressure product for the peak heart rate and blood pressure was [address]. There was no chest pain during stress. The stress test was terminated due to moderate dyspnea and moderate fatigue. Stress EKG's demonstrated no ST or T wave changes for ischemia. Post stress images showed no wall motion abnormalities. Sensitivity limited due to target heart rate was not reached and heart rate dropped quickly after exercise. Dr. Ernandez reviewed and results given to patient. There were no stress arrhythmias or conduction abnormalities. STRESS 2D ECHOCARDIOGRAPHIC RESULTS: BASELINE: There were no regional wall motion abnormalities. Left ventricular size was normal. Overall left ventricular systolic function was normal. PEAK STRESS: There were no regional wall motion abnormalities. There was an appropriate reduction in left ventricular size. There was an appropriate augmentation in LV function. OTHER ECHOCARDIOGRAPHIC FINDINGS: Moderate discrete upper septal thickening. ECHO IMPRESSIONS: There was no echocardiographic evidence for stress-induced ischemia. SUMMARY: - Stress results: Duration of exercise was 5 min and 45 sec. Target heart rate was not achieved. There was no chest pain during stress. - Baseline: There were no regional wall motion abnormalities. - Peak stress: There were no regional wall motion abnormalities. - Echo image interpretation: There was no echocardiographic evidence for stress-induced ischemia. IMPRESSIONS: Normal study after submaximal exercise without reproduction of symptoms. There were no stress-induced wall motion abnormalities. The test had reduced sensitivity in detecting ischemia as the patient did not achieve target heart rate and heart rate rapidly declined before imaging. SYSTEM MEASUREMENT TABLES 2D Ao Diam: 3.7 cm LVOT Diam: 2.1 cm IVSd: 1.5 cm LVIDd: 3.9 cm LVIDs: 2.4 cm LVPWd: 1.2 cm CW AV VTI: 29.1 cm AV Vmax: 1.4 m/s AV Vmean: 1 m/s AV maxP.4 mmHg AV meanP.5 mmHg PW DOMINIQUE (VTI): 3.6 cm2 DOMINIQUE Vmax: 3.1 cm2 LVOT VTI: 31.2 cm LVOT Vmax: 1.3 m/s LVOT Vmean: 0.9 m/s LVOT maxP.6 mmHg LVOT meanP.7 mmHg Prepared and signed by Yifan Ernandez MD Signed 13-Mar-2019 09:39:13 Darell Haji MD ECHO ORDERABLES Performing Organization Address [facility] Co de Phone Number [facility] [address] [place] [id number] * B-TYPE NATRIURETIC PEPTIDE (01/26/2019 6:16 AM CDT) BNP 20 <=100 pg/mL 01/26/2019 6:49 AM CDT [facility] Blood BLOOD SPECIMEN / Unknown Venipuncture / Unknown 01/26/2019 6:16 AM CDT 01/26/2019 6:28 AM CDT [facility] [place] [facility] - 01/26/2019 6:49 AM CDT A cutoff of 100 pg/mL has been demonstrated to provide the maximal combination of sensitivity, specificity, and negative predictive value for contributing to the diagnosis of congestive heart failure (CHF) only. A B-Type Natriuretic Peptide (BNP) value greater than or equal to 100 pg/mL is consistent with a diagnosis of CHF in the appropriate clinical setting. False positive results are more common in females greater than 75 years of age. Blood concentrations of natriuretic peptides may also be elevated in patients with myocardial infarction and in patients who are candidates for or are undergoing renal dialysis. Zion Vargas DO LAB - CHEMISTRY JAYME BRUNER Performing Organization Address City/[facility]/ZIP Co de Phone Number [facility] [address] [place] [address] [phone] * ECHOCARDIOGRAM 2D WITH DOPPLER (12/31/2018 10:03 AM CDT) 12/31/2018 10:0 3 AM CDT Narrative [facility] - 12/31/2018 4:31 PM CDT [place] [id number] Transthoracic Echocardiogram 2D, M-mode, Doppler, and Color Doppler Patient: HUSSAIN DODSON MR number: [id number] Height: 72 in Weight: 189.6 lb BSA: 2.08 m Study date: 31-Dec-2018 : 1955 Age: 63 years Gender: Male Race: Black Warehouse Selector: Adalgisa Aguilar RDCS Referring Physician: Yoni Edgar MD Reading Physician: Yifan Ernandez MD Impressions: The findings are consistent with hypertrophic cardiomyopathy. Summary: - Clinical question: - Heart murmur. - Left ventricle: - Size was normal. - Systolic function was normal. Ejection fraction was estimated to be 65 %. - There were no regional wall motion abnormalities. - Moderate upper septal thickening. There was systolic anterior motion of the mitral leaflet (KENNY) and turbulence through the LV outflow tract without obstruction. - Doppler parameters were consistent with abnormal left ventricular relaxation (grade 1 diastolic dysfunction). Normal LV strain, avg GLPS 21%. Regionally abnormal strain in basal septum and basal lateral wall. - Impressions: - The findings are consistent with hypertrophic cardiomyopathy. Indications: Heart murmur. History: Prior history: Hypertension, diabetes. Procedure: The procedure was performed at the bedside. This was a routine study. The transthoracic approach was used. The study included complete 2D imaging, M-mode, complete spectral Doppler, and color Doppler. Systolic blood pressure was 110 mmHg. Diastolic blood pressure was 58 mmHg. Images were obtained from the parasternal, apical, and subcostal acoustic windows. Left ventricle: Size was normal. Systolic function was normal. Ejection fraction was estimated to be 65 %. There were no regional wall motion abnormalities. Moderate upper septal thickening. There was systolic anterior motion of the mitral leaflet (KENNY) and turbulence through the LV outflow tract without obstruction. Doppler: Doppler parameters were consistent with abnormal left ventricular relaxation (grade 1 diastolic dysfunction). Normal LV strain, avg GLPS 21%. Regionally abnormal strain in basal septum and basal lateral wall. Aortic valve: The valve was trileaflet. Leaflets exhibited normal thickness and normal cuspal separation. Doppler: There was no stenosis. There was no regurgitation. Aorta: The root exhibited normal size. Mitral valve: Valve structure was normal. There was normal leaflet separation. Doppler: The transmitral velocity was within the normal range. There was no evidence for stenosis. There was no regurgitation. Left atrium: Size was normal. Right ventricle: The size was normal. Systolic function was normal. Wall thickness was normal. Pulmonic valve: Leaflets exhibited normal thickness, no calcification, and normal cuspal separation. Doppler: There was no regurgitation. Pulmonary artery: The size was normal. Doppler: Systolic pressure was within the normal range. Tricuspid valve: The valve structure was normal. There was normal leaflet separation. Doppler: The transtricuspid velocity was within the normal range. There was no evidence for tricuspid stenosis. There was no regurgitation. Right atrium: Size was normal. Pericardium: The pericardium was normal in appearance. Impressions: The findings are consistent with hypertrophic cardiomyopathy. System measurement tables 2D LVOT Diam: 2.1 cm LAAs A2C: 13.6 cm2 LAAs A4C: 14.7 cm2 LAESV A-L A2C: 38 ml LAESV A-L A4C: 44.3 ml LAESV Index (A-L): 19.7 ml/m2 LAESV MOD A2C: 36.5 ml LAESV MOD A4C: 41.1 ml LAESV(A-L): 41.1 ml LALs A2C: 4.1 cm CW AV VTI: 32.6 cm AV Vmax: 1.6 m/s AV Vmean: 1.2 m/s AV maxP.7 mmHg AV meanP.3 mmHg TR Vmax: 1.3 m/s MM Ao Diam: 2 cm TAPSE: 0 PW DOMINIQUE (VTI): 2.6 cm2 DOMINIQUE Vmax: 2.7 cm2 LVOT VTI: 24.1 cm LVOT Vmax: 1.2 m/s LVOT Vmean: 0.9 m/s LVOT maxP.4 mmHg LVOT meanP.7 mmHg MV E/A Ratio: 1 LATERAL E': 0.1 m/s LATERAL E/E': 6.1 SEPTAL E/E': 8.9 Prepared and signed by Yifan Ernandez MD Signed 31-Dec-2018 16:31:23 Procedure Note Yifan Ernandez MD - 12/31/2018 [facility] [address] [place] [address] Transthoracic Echocardiogram 2D, M-mode, Doppler, and Color Doppler Patient: HUSSAIN DODSON MR number: [id number] Height: 72 in Weight: 189.6 lb BSA: 2.08 m Study date: 31-Dec-2018 : 1955 Age: 63 years Gender: Male Race: Black Warehouse Selector: Adalgisa Aguilar RDCS Referring Physician: Yoni Edgar MD Reading Physician: Yifan Ernandez MD Impressions: The findings are consistent with hypertrophic cardiomyopathy. Summary: - Clinical question: - Heart murmur. - Left ventricle: - Size was normal. - Systolic function was normal. Ejection fraction was estimated to be 65 %. - There were no regional wall motion abnormalities. - Moderate upper septal thickening. There was systolic anterior motion of the mitral leaflet (KENNY) and turbulence through the LV outflow tract without obstruction. - Doppler parameters were consistent with abnormal left ventricular relaxation (grade 1 diastolic dysfunction). Normal LV strain, avg GLPS 21%. Regionally abnormal strain in basal septum and basal lateral wall. - Impressions: - The findings are consistent with hypertrophic cardiomyopathy. Indications: Heart murmur. History: Prior history: Hypertension, diabetes. Procedure: The procedure was performed at the bedside. This was a routine study. The transthoracic approach was used. The study included complete 2D imaging, M-mode, complete spectral Doppler, and color Doppler. Systolic blood pressure was 110 mmHg. Diastolic blood pressure was 58 mmHg. Images were obtained from the parasternal, apical, and subcostal acoustic windows. Left ventricle: Size was normal. Systolic function was normal. Ejection fraction was estimated to be 65 %. There were no regional wall motion abnormalities. Moderate upper septal thickening. There was systolic anterior motion of the mitral leaflet (KENNY) and turbulence through the LV outflow tract without obstruction. Doppler: Doppler parameters were consistent with abnormal left ventricular relaxation (grade 1 diastolic dysfunction). Normal LV strain, avg GLPS 21%. Regionally abnormal strain in basal septum and basal lateral wall. Aortic valve: The valve was trileaflet. Leaflets exhibited normal thickness and normal cuspal separation. Doppler: There was no stenosis. There was no regurgitation. Aorta: The root exhibited normal size. Mitral valve: Valve structure was normal. There was normal leaflet separation. Doppler: The transmitral velocity was within the normal range. There was no evidence for stenosis. There was no regurgitation. Left atrium: Size was normal. Right ventricle: The size was normal. Systolic function was normal. Wall thickness was normal. Pulmonic valve: Leaflets exhibited normal thickness, no calcification, and normal cuspal separation. Doppler: There was no regurgitation. Pulmonary artery: The size was normal. Doppler: Systolic pressure was within the normal range. Tricuspid valve: The valve structure was normal. There was normal leaflet separation. Doppler: The transtricuspid velocity was within the normal range. There was no evidence for tricuspid stenosis. There was no regurgitation. Right atrium: Size was normal. Pericardium: The pericardium was normal in appearance. Impressions: The findings are consistent with hypertrophic cardiomyopathy. System measurement tables 2D LVOT Diam: 2.1 cm LAAs A2C: 13.6 cm2 LAAs A4C: 14.7 cm2 LAESV A-L A2C: 38 ml LAESV A-L A4C: 44.3 ml LAESV Index (A-L): 19.7 ml/m2 LAESV MOD A2C: 36.5 ml LAESV MOD A4C: 41.1 ml LAESV(A-L): 41.1 ml LALs A2C: 4.1 cm CW AV VTI: 32.6 cm AV Vmax: 1.6 m/s AV Vmean: 1.2 m/s AV maxP.7 mmHg AV meanP.3 mmHg TR Vmax: 1.3 m/s MM Ao Diam: 2 cm TAPSE: 0 PW DOMINIQUE (VTI): 2.6 cm2 DOMINIQUE Vmax: 2.7 cm2 LVOT VTI: 24.1 cm LVOT Vmax: 1.2 m/s LVOT Vmean: 0.9 m/s LVOT maxP.4 mmHg LVOT meanP.7 mmHg MV E/A Ratio: 1 LATERAL E': 0.1 m/s LATERAL E/E': 6.1 SEPTAL E/E': 8.9 Prepared and signed by Yifan Ernandez MD Signed 31-Dec-2018 16:31:23 Heather Dallas MD ECHO ORDERABLES Performing Organization Address City/[facility]/ZIP Co de Phone Number [facility] [address] [place] [address] * CULTURE VRE (12/31/2018 5:12 AM CDT) Culture Negative for vancomycin-resi stant Enterococci (VRE) [place] 01/01/2019 10:38 AM CDT [facility] Microbiology ENTIRE RECTUM / Unknown Collection / Unknown 12/31/2018 5:12 AM CDT 12/31/2018 5:18 AM CDT Anneliese Edwards MD LAB - MICROBIOLOGY O RDDREWBLES Performing Organization Address City/[facility] Co de Phone Number [facility] [address] [place] [address], [facility] [phone] * CULTURE MRSA (12/31/2018 5:12 AM CDT) Only the most recent of2 resultswithin the time period is included. Culture Negative for methicillin-resist ant Staphylococcus aureus (MRSA) [place] 01/01/2019 9:45 AM CDT [facility] Microbiology ENTIRE RECTUM / Unknown Collection / Unknown 12/31/2018 5:12 AM CDT 12/31/2018 5:18 AM CDT Anneliese Edwards MD LAB - MICROBIOLOGY O RDERABLES Performing Organization Address [facility] Co de Phone Number [facility] [address] [place] [address], [facility] [phone] * CT CHEST ABDOMEN PELVIS W CONT (12/30/2018 10:39 AM CDT) Anatomical Region Laterality Modality Chest, Abdomen, Pelvis Computed Tomography 12/30/2018 10:4 4 AM CDT Impressions 12/30/2018 11:14 AM CDT 1. Marked thickening of the entire esophagus concerning for diffuse esophagitis. An underlying malignancy cannot be excluded and further evaluation with upper endoscopy is recommended. Air is seen within the stomach and in the esophagus. 2. Marked stranding around the bilateral kidneys is indeterminate. Correlation for underlying urinary tract infection is recommended. There are numerous cysts in the kidneys which could be evaluated by sonogram on a nonemergent basis. 3. Small cystic focus in the tail of the pancreas. Follow-up could be obtained to document stability. Edited by Neyda Monique on 12/30/2018 10:51 AM Reading Radiologist: Albert Villatoro MD on 12/30/2018 at 11:14 AM Narrative 12/30/2018 11:14 AM CDT EXAMINATION: Computed Tomography (CT) of the chest, abdomen, and pelvis with contrast. HISTORY: Weight loss. TECHNIQUE: Multislice helical CT of the chest, abdomen and pelvis was performed after the administration of 100 mL of Isovue-370. COMPARISON: None available. FINDINGS: CT chest: The esophagus appears diffusely thickened throughout its course. This may represent esophagitis and further evaluation with upper endoscopy is recommended. There is marked thickening of the distal esophagus at the level of the GE junction. An underlying lesion is not excluded. No definite mediastinal adenopathy is seen. The heart is normal in size. There is no evidence of central pulmonary embolism. No focal consolidation is seen in the lungs. Bone windows demonstrate no destructive lesions. CT abdomen/pelvis: No focal intrahepatic lesions are identified. The gallbladder appears normal. The main portal vein is patent. There are numerous cysts seen in the bilateral kidneys. There is some stranding noted around the bilateral kidneys which is indeterminate. Correlation with urinary laboratory values is recommended. There may be a small cyst in the tail of the pancreas or side branch intraductal papillary mucinous neoplasm measuring up to 1 cm, please see image 36 series 3. Otherwise, the pancreas is unremarkable. The spleen is normal. There is no evidence of bowel obstruction. A large amount of stool is seen in the rectum. Calcifications are present in the prostate. The urinary bladder appears unremarkable. Bone windows demonstrate no destructive lesions. Severe degenerative changes are seen in the hips and spine. Procedure Note Albert Villatoro MD - 12/30/2018 EXAMINATION: Computed Tomography (CT) of the chest, abdomen, and pelvis with contrast. HISTORY: Weight loss. TECHNIQUE: Multislice helical CT of the chest, abdomen and pelvis was performed after the administration of 100 mL of Isovue-370. COMPARISON: None available. FINDINGS: CT chest: The esophagus appears diffusely thickened throughout its course. This may represent esophagitis and further evaluation with upper endoscopy is recommended. There is marked thickening of the distal esophagus at the level of the GE junction. An underlying lesion is not excluded. No definite mediastinal adenopathy is seen. The heart is normal in size. There is no evidence of central pulmonary embolism. No focal consolidation is seen in the lungs. Bone windows demonstrate no destructive lesions. CT abdomen/pelvis: No focal intrahepatic lesions are identified. The gallbladder appears normal. The main portal vein is patent. There are numerous cysts seen in the bilateral kidneys. There is some stranding noted around the bilateral kidneys which is indeterminate. Correlation with urinary laboratory values is recommended. There may be a small cyst in the tail of the pancreas or side branch intraductal papillary mucinous neoplasm measuring up to 1 cm, please see image 36 series 3. Otherwise, the pancreas is unremarkable. The spleen is normal. There is no evidence of bowel obstruction. A large amount of stool is seen in the rectum. Calcifications are present in the prostate. The urinary bladder appears unremarkable. Bone windows demonstrate no destructive lesions. Severe degenerative changes are seen in the hips and spine. IMPRESSION 1. Marked thickening of the entire esophagus concerning for diffuse esophagitis. An underlying malignancy cannot be excluded and further evaluation with upper endoscopy is recommended. Air is seen within the stomach and in the esophagus. 2. Marked stranding around the bilateral kidneys is indeterminate. Correlation for underlying urinary tract infection is recommended. There are numerous cysts in the kidneys which could be evaluated by sonogram on a nonemergent basis. 3. Small cystic focus in the tail of the pancreas. Follow-up could be obtained to document stability. Edited by Neyda Monique on 12/30/2018 10:51 AM Reading Radiologist: Albert Villatoro MD on 12/30/2018 at 11:14 AM Alex Edgar MD CT ORDERABLES * (ABNORMAL) PT PTT PANEL (12/30/2018 9:38 AM CDT) PT 11.9(H) 9.5 - 11.6 sec 12/30/2018 9:53 AM CDT [facility] INR 1.1 0.9 - 1.1 12/30/2018 9:53 AM CDT [facility] PTT 23.9 21.0 - 32.0 sec 12/30/2018 9:53 AM CDT [facility] Blood BLOOD SPECIMEN / Unknown Venipuncture / Unknown 12/30/2018 9:38 AM CDT 12/30/2018 9:42 AM CDT Narrative [facility] - 12/30/2018 9:53 AM CDT Conventional Warfarin Anticoagulant Therapy: INR Reference Range: 2.0-3.0 Intensive Warfarin Anticoagulant Therapy: INR Reference Range: 2.5-3.5 Heparin Therapeutic Range for PTT: 50.5 - 74.3 seconds. Alex Edgar MD LAB - COAGULATION OR DERABLES [facility] [address] [place], [place] [phone] * EGD (11/07/2018 9:48 AM CDT) Report Endoscopy POC _ Patient Name: Hussain Candi Procedure Date: 11/07/2018 9:48 AM Date of : 1955 Admit Type: Outpatient Age: 63 Gender: Male Attending MD: Alberto Sahu MD _ Procedure: Upper GI endoscopy Indications: Dysphagia, Suspected gastro-esophageal reflux disease Providers: Alberto Sahu MD (Doctor), Bette Cm RN, Palak Greco, Cab Starter Referring MD: [facility] (Referring MD) Medicines: Monitored Anesthesia Care Complications: No immediate complications. _ Procedure: Pre-Anesthesia Assessment: - Prior to the procedure, a History and Physical was performed, and patient medications and allergies were reviewed. The patient's tolerance of previous anesthesia was also reviewed. The risks and benefits of the procedure and the sedation options and risks were discussed with the patient. All questions were answered, and informed consent was obtained. Prior Anticoagulants: The patient has taken no previous anticoagulant or antiplatelet agents. ASA Grade Assessment: II - A patient with mild systemic disease. After reviewing the risks and benefits, the patient was deemed in satisfactory condition to undergo the procedure. After obtaining informed consent, the endoscope was passed under direct vision. Throughout the procedure, the patient's blood pressure, pulse, and oxygen saturations were monitored continuously. The Endoscope was introduced through the mouth, and advanced to the second part of duodenum. The upper GI endoscopy was accomplished without difficulty. The patient tolerated the procedure well. Impression: - Severe reflux esophagitis. Biopsied. - Hiatal hernia. - Gastritis. Biopsied. - Normal duodenal bulb and second portion of the duodenum. Findings: Severe esophagitis with no bleeding was found in the entire esophagus. Biopsies were taken with a cold forceps for histology. A hiatal hernia was present. Localized mild inflammation characterized by erythema was found in the gastric antrum. Biopsies were taken with a cold forceps for Helicobacter pylori testing using CLOtest. Estimated blood loss: none. The duodenal bulb and second portion of the duodenum were normal. _ Recommendation: - Patient has a contact number available for emergencies. The signs and symptoms of potential delayed complications were discussed with the patient. Return to normal activities tomorrow. Written discharge instructions were provided to the patient. - Written discharge instructions were provided to the patient. - The signs and symptoms of potential delayed complications were discussed with the patient. - Patient has a contact number available for emergencies. - Return to normal activities tomorrow. - Follow an antireflux regimen. - Use Protonix (pantoprazole) 40 mg PO BID. - Continue present medications. Procedure Code(s): --- Professional --- 20869, Esophagogastroduo denoscopy, flexible, transoral; with biopsy, single or multiple --- Technical --- 80648, Esophagogastroduo denoscopy, flexible, transoral; with biopsy, single or multiple Diagnosis Code(s): --- Professional --- K21.0, Gastro-esophageal reflux disease with esophagitis K44.9, Diaphragmatic hernia without obstruction or gangrene K29.70, Gastritis, unspecified, without bleeding R13.10, Dysphagia, unspecified --- Technical --- K21.0, Gastro-esophageal reflux disease with esophagitis K44.9, Diaphragmatic hernia without obstruction or gangrene K29.70, Gastritis, unspecified, without bleeding R13.10, Dysphagia, unspecified CPT copyright 2017 [employer]. All rights reserved. The codes documented in this report are preliminary and upon town planner review may be revised to meet current compliance requirements. Alberto Sahu MD 11/07/2018 10:04:11 AM This report has been signed electronically. Number of Addenda: 0 Note Initiated On: 11/07/2018 9:48 AM [facility] 11/07/2018 9:48 AM CDT Alberto Sahu MD GI PROCEDURE ORDERAB LES [facility] * SODIUM URINE RANDOM (11/04/2017 1:30 AM CDT) Sodium Urine 72 mmol/L 11/04/2017 2:20 AM CDT [facility] Urine URINE SPECIMEN OBTAINED BY CLEAN CATCH PROCEDURE / Unknown Collection / Unknown 11/04/2017 1:30 AM CDT 11/04/2017 1:55 AM CDT Jared Bansal MD LAB - URINE CHEMISTR Y ORDERABLES Performing Organization Address City/[facility]/ZIP Co de Phone Number [facility] [address] [place] [address] * CREATININE URINE RANDOM (11/04/2017 1:30 AM CDT) Creatinine Urine 180 mg/dL 11/04/2017 2:20 AM CDT [facility] Urine URINE SPECIMEN OBTAINED BY CLEAN CATCH PROCEDURE / Unknown Collection / Unknown 11/04/2017 1:30 AM CDT 11/04/2017 1:55 AM CDT Jared Bansal MD LAB - URINE CHEMISTR Y ORDERABLES Performing Organization Address [facility] Co de Phone Number [facility] [address] [place] [address] * ETHANOL URINE QUAL MEDICAL (09/25/2016 12:43 PM GLUER MACHINE OPERATOR) Ethanol Urine Negative Cutoff=0.0 20% % [facility] ([employer]) Urine specimen (specimen) URINE SPECIMEN OBTAINED BY CLEAN CATCH PROCEDURE / Unknown 09/25/2016 12:43 PM GLUER MACHINE OPERATOR 09/25/2016 12:59 PM GLUER MACHINE OPERATOR Narrative [facility] ([employer]) - 09/26/2016 7:13 AM GLUER MACHINE OPERATOR Performed at: [address] [place] [address] [id number] Fire Alarm Operator: Hay Loya PhD, Phone: [phone] Jewel Lane MD LAB - URINE CHEMISTR Y ORDERABLES Performing Organization Address City/[facility]/ZIP Co de Phone Number [facility] ([employer]) * HEPATITIS C GENOTYPE 1 NS5A DRUG RESISTANCE (09/25/2016 12:43 PM GLUER MACHINE OPERATOR) Hepatitis C Virus NS5A Resistance Assay PDF . [facility] ([employer]) Hepatitis C Virus NS5A Drug Resistance TNP [facility] ([employer]) Comment: See comments HCV GenoSure(TM) NS5A HCV GenoSure(TM) NS5A Result: Non-Reportable HCV Genotype: Not Available Mutational analysis of the specified region could not be obtained. The most common reasons for failure are insufficient viral load, primer incompatibility, incorrect genotype/subtype submission (must be 1a or 1b), and the presence of inhibitory substances in the sample. If you would like to add on HCV Genotype (subtype) or HCV RT-PCR Quant, or if you have any questions please contact our Client Services Department at . Hepatitis C Virus NS5A Resist Assay Interp Comment [facility] ([employer]) Comment: For more information on interpreting this report, please call [employer] Customer Service at [phone] between the hours of 6:30am to 5:00pm [place] Time Sunday through Sunday. REMINDER: To Ensure High-Quality Results on All Samples - Verify Viral Load >500 IU/mL Before Ordering. - Draw 3.0 mL Plasma (PPT or EDTA Tube). - Spin Sample Immediately at [id number] x g. - Don't Leave Samples in Centrifuge After Spinning. - Aliquot Plasma from EDTA Tubes (if used). - Freeze Sample Immediately at -20 degrees C. - Give Loading Dock Hand Only Fully Frozen Samples. This assay is performed using a next-generation sequencing platform that analyzes the specified non-structural coding regions of HCV. Variants are reported at a sensitivity that has been demonstrated to be equivalent to that of Lizandro/population sequencing. Genotype assignment is determined from the sequence of the specified regions that are derived using subtype specific methodology, and should not be used to establish or confirm the HCV genotype. HCV genotype determination should only be done with an assay intended for that purpose. This assay meets the standards for performance characteristics and all other quality assurance tester and assurance requirements established by the Clinical Laboratory Improvement Amendments. This assay was validated by testing samples with viral loads equal to or above 500 IU/mL and should be interpreted only on such specimens. The results should not be used as the sole criteria for patient management. The results have been disclosed to you from confidential records protected by law and are not to be disclosed to unauthorized persons. Further disclosure of these results is prohibited without specific consent of the persons to whom it pertains, or as permitted by law. 09/25/2016 12:4 3 PM GLUER MACHINE OPERATOR 09/25/2016 12:59 PM GLUER MACHINE OPERATOR Narrative [facility] ([employer]) - 10/13/2016 3:14 PM CDT Performed at: 01 - [employer] [address] [place] [address] [id number] Fire Alarm Operator: Scott Gallegos MD, Phone: [phone] Jewel Lane MD LAB - CHEMISTRY ORDE FRANC [facility] E[facility]) * (ABNORMAL) DRUG ABUSE PANEL 10-20+ETHANOL URINE NO CONFIRM (09/25/2016 12:43 PM GLUER MACHINE OPERATOR) [facility] Amphetamines Screen Urine Negative Negative : < 1000 ng/mL [facility] Barbiturates Screen Urine Negative Negative : < 200 ng/mL [facility] Benzodiazepine Screen Urine Negative Negative : < 200 ng/mL [facility] Opiates Urine Negative Negative : < 300 ng/mL [facility] Cocaine Metabolites Urine Positive(A) Negative : < 300 ng/mL [facility] Comment: Positive urine cocaine metabolites screening results should be confirmed by another generally accepted non-immunological method such as gas chromatography or mass spectrometry. Phencyclidine Screen Urine Negative Negative : < 25 ng/ml [facility] Cannabinoids Screen Urine Negative Negative : <50 ng/mL [facility] Methadone Screen Urine Negative Negative : < 300 ng/mL [facility] Urine specimen (specimen) URINE / Unknown 09/25/2016 12:43 PM GLUER MACHINE OPERATOR 09/25/2016 1:00 PM GLUER MACHINE OPERATOR Narrative [facility] - 09/25/2016 1:36 PM GLUER MACHINE OPERATOR The Urine Toxicology Screening Panel does not screen for Propoxyphene, Meprobamate, Carisoprodol, Trazodone, kncz-gun-efldsbi medications and/or volatiles (Acetone, Isopropanol, Methanol or Ethylene Glycol). Ethanol, Salicylate, Acetaminophen, Tricyclic Antidepressants and several therapeutic drugs may be individually assayed in serum or plasma specimen. Toxicology testing by the [facility] is an aid to medical diagnosis and treatment of patients. No documented chain of custody was maintained. Results are intended to be used for clinical purposes only. Jewel Lane MD LAB - URINE CHEMISTR Y ORDERABLES [place] [id number] [address] [phone] * (ABNORMAL) HEPATITIS C GENOTYPE (09/25/2016 12:43 PM GLUER MACHINE OPERATOR) Only the most recent of2 resultswithin the time period is included. Hepatitis C Genotype Accession No: [id number] Specimen: Serum Reference: [id number] Test: Hepatitis C Genotyping RESULT Genotype 2 Reference Range Not Detected INTERPRETATION The Hepatitis C genotype RT-PCR determination was performed on a serum sample. Genotype identification was successful. COMMENT The [facility] RealTime HCV Genotype II is intended for use as an aid in the management of HCV-infected individuals and in guiding the selection of therapeutic treatment indicated for genotypes 1, 1a, 1b, and 2-5. The assay is intended for use on patients who are chronically infected with HCV, are being considered for antiviral treatment, and are positive for HCV RNA. The analytical sensitivity of the assay is 500 IU/ml. While the genotype assay is qualitative, testing cannot be reliably performed on samples with less than 500 IU/ml HCV. The detection of HCV RNA in serum is based on the isolation of HCV RNA with reverse thread marker of genomic HCV RNA followed by real-time PCR in the presence of an unrelated RNA internal control. The internal control ensures that RNA is isolated, and that no general significant inhibitors of the RT-PCR process are present. Genotype specific probes allow differentiation of genotype. This analysis was performed using an [place] FDA approved test methodology ([facility] RealTime HCV Genotype II). Test performed at [facility], [address] [place] [address] This case has been personally reviewed and interpreted by the attending (teaching) pathologist. Final Diagnosis performed by Dieter Brock PHD. Electronically signed 10/07/2016(A) [facility] ([facility]) Blood specimen (specimen) 09/25/2016 12:43 PM GLUER MACHINE OPERATOR 09/25/2016 12:59 PM GLUER MACHINE OPERATOR Jewel Lane MD LAB - CHEMISTRY JAYME BRUNER [facility] ([facility]) * ALPHA FETOPROTEIN BLOOD TUMOR (09/25/2016 12:43 PM GLUER MACHINE OPERATOR) Only the most recent of2 resultswithin the time period is included. Pathologist [facility] Alpha-Fetoprotei n Tumor Marker 4.3 0.0 - 8.3 ng/mL [facility] Comment:Jose ECLIA methodol ogy Blood specimen (specimen) BLOOD SPECIMEN / Unknown 09/25/2016 12:43 PM GLUER MACHINE OPERATOR 09/25/2016 1:00 PM GLUER MACHINE OPERATOR Narrative [facility] ([facility] - 09/26/2016 9:17 AM GLUER MACHINE OPERATOR Performed at: - [address] [id number] Fire Alarm Operator: Hay Loya PhD, Phone: [phone] Jewel Lane MD LAB - CHEMISTRY JAYME BRUNER Performing Organization Address [facility] Co de Phone Number [facility] ([facility]) * (ABNORMAL) JUANCARLOS BLOOD SCREEN (02/01/2015 12:13 PM CDT) Pathologist [facility] JUANCARLOS Positive(A ) None Detected [facility] Venous blood specimen (specimen) 02/01/2015 12:13 PM CDT 02/01/2015 12:[address] MD LAB - CHEMISTRY JAYME BRUNER Performing Organization Address [facility] Co de Phone Number [address] [phone] * MITOCHONDRIAL ANTIBODY SCREEN (02/01/2015 12:13 PM CDT) [facility] Mitochondrial M2 Antibody 13.6 0.0 - 20.0 Units [facility] Comment: Mitochondrial M2 Antibody Numeric Result Interpretation: <20.1 Units: Negative 20.1 - 24.9 Units: Equivocal >24.9 Units: Positive Blood specimen (specimen) BLOOD SPECIMEN / Unknown 02/01/2015 12:13 PM CDT 02/01/2015 12:[address] MD LAB - CHEMISTRY JAYME BRUNER Performing Organization Address City/[facility]/ZIP Co de Phone Number [address] [phone] * [id number] BLOOD PHENOTYPING PANEL (02/01/2015 12:13 PM CDT) Qcpit-6-Efornzqjhj n 159 90 - 200 mg/dL [facility] ([facility]) Phenotype (PI) MM [facility] ([facility]) Comment: Phenotype Population A-1-AT Concentration* Incidence % % of MM Ref. Range Mean MM 86.5% 100% (90-200) 145 MS 8.0% 81% (73-162) 118 MZ 3.9% 60% (54-120) 87 FM 0.4% 97% (87-194) 141 SZ 0.3% 39% (35- 78) 57 SS 0.1% 71% (64-142) 103 ZZ 0.05% 7% ( 6- 14) 10 FS 0.05% 66% (59-132) 96 FZ Unknown Unknown FF Unknown Unknown *A-1-AT concentration in the homozygous MM phenotype is taken as the reference normal. Deficiency in phenotypes is reported relative to this reference. Blood specimen (specimen) BLOOD SPECIMEN / Unknown 02/01/2015 12:13 PM CDT 02/01/2015 12:25 PM CDT Narrative [facility] ([facility]) - 02/03/2015 5:16 PM CDT Performed at: [address] [id number] Fire Alarm Operator: Santiago Piña PhD, Phone: [phone] Performed at: [address] [id number] Fire Alarm Operator: Aron Nova MD, Phone: [phone] Jewel Lane MD LAB - CHEMISTRY JAYME BRUNER [facility]) * CERULOPLASMIN (02/01/2015 12:13 PM CDT) Ceruloplasmin 28 20 - 60 mg/dL [facility] Blood specimen (specimen) BLOOD SPECIMEN / Unknown 02/01/2015 12:13 PM CDT 02/01/2015 12:[address] MD LAB - [place] [address], [facility] [phone] * [id number]-[id number] BLOOD (02/01/2015 12:13 PM CDT) Pathologist [facility] Mvtkf-1-Wfsedk ypsin 154 90 - 200 mg/dL [facility] Blood specimen (specimen) BLOOD SPECIMEN / Unknown 02/01/2015 12:13 PM CDT 02/01/2015 12:[address] MD LAB - CHEMISTRY JAYME BRUNER Performing Organization Address [facility] Co de Phone Number [address] [phone] * SMOOTH MUSCLE ANTIBODY (02/01/2015 12:13 PM CDT) Pathologist [facility] F-Actin Antibody IgG 14.2 0.0 - 19.9 Units [facility] Comment: F-Actin Antibody Numeric Result Interpretation: <20.0 Units: Negative 20.0 - 30.0 Units: Weak Positive >30.0 Units: Moderate to Strong Positive Blood specimen (specimen) BLOOD SPECIMEN / Unknown 02/01/2015 12:13 PM CDT 02/01/2015 12:[address] MD LAB - SEROLOGY ORDER SCARLETT Performing Organization Address City/[facility]/[place] [address], [facility] [phone] * (ABNORMAL) HEPATITIS C ANTIBODY (02/01/2015 12:13 PM CDT) Pathologist [facility] Hepatitis C Antibody Reactive( A) Non-react ilya [facility] Comment: Hepatitis C Antibody screen is consistent with past or current infection with Hepatitis C Virus. Nucleic Acid Test (FERNANDO) for Hepatitis C Viral RNA should be performed for initial HCV workup, and for differentiating active/chronic infection from resolved infection. Blood specimen (specimen) BLOOD SPECIMEN / Unknown 02/01/2015 12:13 PM CDT 02/01/2015 12:[address] MD LAB - CHEMISTRY JAYME BRUNER [facility] [address] [phone] * HEPATITIS A ANTIBODY (02/01/2015 12:13 PM CDT) Hepatitis A Virus Antibody Total Negative Negative [facility] ([facility]) Blood specimen (specimen) 02/01/2015 12:13 PM CDT 02/01/2015 12:25 PM CDT Narrative [facility] ([employer]) - 02/02/2015 6:13 AM CDT Performed at: [address] [place] [address] [id number] Fire Alarm Operator: Santiago Piña PhD, Phone: [phone] Jewel Lane MD LAB - CHEMISTRY JAYME BRUNER Performing Organization Address [facility]/ZIP Co de Phone Number [facility] ([facility] * JUANCARLOS BLOOD SCREEN W/REFLEX TITER (02/01/2015 12:13 PM CDT) JUANCARLOS IFA Negative [facility] ([facility]) Comment: Negative <1:80 Borderline 1:80 Positive >1:80 Venous blood specimen (specimen) BLOOD SPECIMEN / Unknown 02/01/2015 12:13 PM CDT 02/03/2015 10:41 AM CDT Narrative [facility] ([employer]) - 02/04/2015 3:21 PM CDT Performed at: [address] [place] [address] [id number] Fire Alarm Operator: Santiago Piña PhD, Phone: [phone] Jewel Lane MD LAB - CHEMISTRY JAYME BRUNER [facility] ([employer]) * HEMOGLOBIN A1C - POINT OF CARE (AMB) [facility] (07/20/2014 2:21 PM GLUER MACHINE OPERATOR) Hemoglobin A1c POCT 8.2 [facility] Capillary blood specimen (specimen) 07/20/2014 2:21 PM GLUER MACHINE OPERATOR Diana Bhatti APRN-PAINT DEPARTMENT SUPERVISOR LAB - POINT O F CARE ORDERABLES [facility] * ENDOSCOPY, COLON, SCREENING (02/10/2013 10:10 AM CDT) Report Endoscopy POC _ Patient Name: Hussain Boise Procedure Date: 02/10/2013 10:10 AM Date of : 1955 Admit Type: Outpatient Gender: Male Age: 57 Attending MD: Alberto Sahu MD _ Procedure: Colonoscopy Indications: Screening for colorectal malignant neoplasm Providers: Alberto Sahu MD (Doctor), Rubi Aguilar RN, Devi Ramirez RN Referring MD: Cary Fonseca MD (Referring MD) Medicines: Monitored Anesthesia Care Complications: No immediate complications. _ Procedure: Pre-Anesthesia Assessment: - ASA Grade Assessment: II - A patient with mild systemic disease. - Airway Examination: Mallampati Class I (tonsillar pillars visualized). After I obtained informed consent, the scope was passed under direct vision. Throughout the procedure, the patient's blood pressure, pulse, and oxygen saturations were monitored continuously. The Colonoscope was introduced through the anus and advanced to the cecum, identified by appendiceal orifice & ileocecal valve. The colonoscopy was performed without difficulty. The patient tolerated the procedure well. The quality of the bowel preparation was fair. Impression: - One 6 mm polyp in the descending colon. Resected and retrieved. - Stool. Findings: A sessile polyp was found in the descending colon. The polyp was 6 mm in size. The polyp was removed with a cold biopsy forceps. Resection and retrieval were complete. Estimated blood loss: none. A moderate amount of stool was found in the colon, making visualization difficult. Lavage of the area was performed using a moderate amount, resulting in clearance with fair visualization. _ Recommendation: - Repeat colonoscopy in 2 years for surveillance. OTHER Alberto Sahu MD 02/10/2013 10:54 AM This report has been signed electronically. Number of Addenda: 0 Note Initiated On: 02/10/2013 10:10 AM [facility] 02/10/2013 10:1 0 AM CDT Narrative [facility] - 02/10/2013 10:55 AM CDT Procedure Note Alberto Sahu MD - 02/10/2013 10:55 AM CDT Alberto Sahu MD GI PROCEDURE ORDERAB LES [facility] Care Teams Primary Health Organisation Manager Relationship Specialty Start Date End Date Maricruz Ramirez MD [address] [place] [address] PCP - General Internal Medicine 09/07/20 Maricruz Ramirez MD [address] [place] [address] PCP - [facility] 04/29/24 Darell Haji MD [address] [place] [address] Cardiology 04/17/19 Susan Hurley, LAW WRITER-PAINT DEPARTMENT SUPERVISOR [address] [place] [address] Cardiology 09/26/21 Loc Su MD [address] [place] [address] Surgeon Cardiothoracic Surgery 12/18/23 Palak Ace Care Coordination Specialist Care Management 09/01/24
--- OUTSIDE RECORDS SUMMARY | 2024-09-06 14:37 | XMS_ITS | Continuity of Care Document ---
Author Organization [facility] Address [address] [place] [address] Phone Care Team Providers Care Lpn Name Role Phone Ya Manrique Unavailable Unavailable Allergies, Adverse Reactions, Alerts Substance Reaction Status Criticality No Known Allergies Active No Inform ation Medications Medication Instructions Dosage Effective Dates (start - stop) Status Comments baclofen 10 mg Tab take 1 - 2 Tablet (10MG) by ORAL route 3 times every day as needed for muscle spasm 10 MG - Active Glucophage 1,000 mg Tab take 1 tablet (1000MG) by ORAL route 2 times every day with morning and evening meals - Active Lantus Solostar 100 unit/mL (3 mL) Sub-Q Insulin Pen inject 70 Unit by Subcutaneous route every day 70 Unit - Active will need enough pen cartridges for one month supply lisinopril-hydro chlorothiazide 20 mg-12.5 mg Tab take 2 Tablet by oral route every day 2 Tablet - Active FreeStyle Lite Meter Kit take 1 by [facility].(Non-Drug; Combo Route) route 3 times every day 1 - Active FreeStyle Lite Strips place by [facility].(Non-Drug; Combo Route) route 3 times every day Not Available - Active FreeStyle Lancets inject by Subcutaneous route 3 times every day Not Available - Active Pen Needle 29 gauge inject by Subcutaneous route every day Not Available - Active Procedures Procedure Date Limit Oral Evaluation- problem focused J Extraction erupted tooth or exposed root Periapical Radiographic, first Image Jul Extraction erupted tooth or exposed root Extraction erupted tooth or exposed root Extraction erupted tooth or exposed root Dental Bitewing Radiographic, One Image Periapical Radiographic, first Image May Limit Oral Evaluation- problem focused N Limit Oral Evaluation- problem focused O Periapical Radiographic, first Image Apr Extraction erupted tooth or exposed root Extraction erupted tooth or exposed root Limit Oral Evaluation- problem focused O Periapical Radiographic, first Image Apr Periapical Radiographic Image, ea addl O Extraction erupted tooth or exposed root Extraction erupted tooth or exposed root Extraction erupted tooth or exposed root OFFICE/OUTPATIENT VISIT, EST COLLECTION OF CAPILLARY BLOOD SPECIMEN ( EG, FINGER, HEEL, EAR STICK) OFFICE OUTPT EST 25 MIN OFFICE/OUTPATIENT VISIT, EST COLLECTION OF VENOUS BLOOD BY VENIPUNCTU RE OFFICE OUTPT EST 25 MIN OFFICE OUTPT EST 25 MIN COLLECTION OF VENOUS BLOOD BY VENIPUNCTU RE COLLECTION OF VENOUS BLOOD BY VENIPUNCTU RE COLLECTION OF VENOUS BLOOD BY VENIPUNCTU RE OFFICE OUTPT EST 25 MIN COLLECTION OF VENOUS BLOOD BY VENIPUNCTU RE OFFICE/OUTPATIENT VISIT, EST COLLECTION OF VENOUS BLOOD BY VENIPUNCTU RE COMPRE METAB PANEL LIPID PANEL HEMOGLOBIN; GLYCOSYLATED (A1C) 09 CYANOCOBALAMIN (VITAMIN B-12); 09 OFFICE O/P EST 5 MIN OFFICE/OUTPATIENT VISIT, EST OFFICE/OUTPATIENT VISIT, EST HEMOGLOBIN; GLYCOSYLATED (A1C) 08 CALCIFEDIOL (25-OH VITAMIN D-3) 008 OFFICE/OUTPATIENT VISIT, EST CYANOCOBALAMIN (VITAMIN B-12); 08 COMPRE METAB PANEL OFFICE CONSULT, 15 MIN, 3 KE Y COMPS: PROB FOCUS HX; PROB FOCUS EXAM; [facility] BASIC METABOLIC PANEL CALCIUM TOTAL HEPATC FUNCJ PANEL CALCIFEDIOL (25-OH VITAMIN D-3) 008 HEMOGLOBIN; GLYCOSYLATED (A1C) 08 OFFICE/OUTPATIENT VISIT, EST BLOOD COUNT; COMPLETE (CBC), AUTOMATED D IFF OFFICE CONSULT, 15 MIN, 3 KE Y COMPS: PROB FOCUS HX; PROB FOCUS EXAM; [facility] BASIC METABOLIC PANEL CALCIUM TOTAL HEMOGLOBIN; GLYCOSYLATED (A1C) OFFICE O/P EST 5 MIN OFFICE OUTPT EST 25 MIN OFFICE CONSULT, 15 MIN, 3 KE Y COMPS: PROB FOCUS HX; PROB FOCUS EXAM; [facility] OFFICE CONSULT, 15 MIN, 3 KE Y COMPS: PROB FOCUS HX; PROB FOCUS EXAM; [facility] OFFICE CONSULT, 15 MIN, 3 KE Y COMPS: PROB FOCUS HX; PROB FOCUS EXAM; [facility] OFFICE CONSULT, 15 MIN, 3 KE Y COMPS: PROB FOCUS HX; PROB FOCUS EXAM; [facility] OFFICE OUTPT EST 10 MIN TESTOSTERONE; TOTAL OFFICE OUTPT EST 10 MIN ELECTROCARDIOGRAM, COMPLETE BASIC METABOLIC PANEL CALCIUM TOTAL OFFICE OUTPT EST 10 MIN INJECTION, VITAMIN B-12 CYANOCOBALAMIN, UP TO 1000 MCG BLOOD COUNT; COMPLETE (CBC), AUTOMATED D IFF INFLUENZA VACCINE, AGE 3YRS+ CYANOCOBALAMIN (VITAMIN B-12); 06 HEMOGLOBIN; GLYCOSYLATED (A1C) LIPID PANEL FOLIC ACID; SERUM CALCIFEDIOL (25-OH VITAMIN D-3) 006 PROSTATE SPECIFIC ANTIGEN (PSA); TOTAL N HEPATC FUNCJ PANEL OFFICE OUTPT EST 25 MIN OFFICE CONSULT, 15 MIN, 3 KE Y COMPS: PROB FOCUS HX; PROB FOCUS EXAM; [facility] OFFICE OUTPT EST 10 MIN CALCIFEDIOL (25-OH VITAMIN D-3) 006 HEMOGLOBIN; GLYCOSYLATED (A1C) AQT HEP PANEL OFFICE CONSULT, 15 MIN, 3 KE Y COMPS: PROB FOCUS HX; PROB FOCUS EXAM; [facility] AQT HEP PANEL HEPATC FUNCJ PANEL OFFICE OUTPT EST 25 MIN PNEUMOCOCCAL VACCINE, AGE 2YRS+ 006 Advance Directives Directive Yes / No Effective Date File Name No Information Encounters Encounter Description Practice Location Reason(s) For Visit Diagnoses Date Provider Providers Copied on Encounter [facility], [address], [place], [place], [address] , tel: [phone] [facility] Encounter for dental exam and cleaning w abnormal findingsOther specified diseases of hard tissues of teeth 5 Burton Pandya. [address], [place], [place], [address]. tel:[phone] Referring Provider: Ronal Murillo, [address], [place], [address] . tel:[phone] [facility] [address], [place], [place], [address] , tel: [phone] [facility] Dental caries, unspecified 0 No Information [facility], [address], [place], [place], [address] , [place] tel: [phone] [facility] Encounter for dental exam and cleaning w abnormal findings 0 No Information [facility], [address], [place], [place], [address] , tel: [phone] [facility] Dental caries on smooth surface penetrating into pulp 9 No Information OFFICE/OUTPA TIENT VISIT, EST [facility], [address], [place], [place], [address] , [place] tel: [phone] [facility] DM/HTN (chief complaint)T high pain, chronic (chief complaint)H ep C (chief complaint)n eurology followup needed (chief complaint) Chronic hepatitis C without mention of hepatic comaDiabetes mellitus without mention of complication, type II or unspecified type, uncontrolledU nspecified essential hypertensionP olyneuropathy in diabetes 2 No Information OFFICE OUTPT EST 25 MIN [facility], [address], [place], [place], [address] , [place] tel: [phone] [facility] diabetes (chief complaint)h ypertension (chief complaint)r ight leg pain (chief complaint)h ep c (chief complaint) Diabetes mellitus without mention of complication, type II or unspecified type, uncontrolledU nspecified essential hypertensionP ain in limbUnspecifi ed viral hepatitis C without hepatic coma 2 No Information OFFICE/OUTPA TIENT VISIT, EST [facility], [address], [place], [place], [address] , [place] tel: [phone] [facility] right leg pain (chief complaint)l ab review (chief complaint) Pain in limbCarrier or suspected carrier of hepatitis C 2 No Information OFFICE OUTPT EST 25 MIN [facility], [address], [place], [place], [address] , [place] tel: [phone] [facility] right leg pain (chief complaint)h ypertension (chief complaint)f ollow up on lab / diagnostic test (chief complaint) Unspecified essential hypertensionP ain in limbOther abnormal blood chemistry 1 No Information [facility], [address], [place], [place], [address] , [place] tel: [phone] [facility] No Information 1 No Information OFFICE OUTPT EST 25 MIN [facility], [address], [place], [place], [address] , [place] tel: [phone] [facility] right leg pain (chief complaint)d iabetes (chief complaint)h ypertension (chief complaint)p rostate screening (chief complaint)f ollow up on lab / diagnostic test (chief complaint) Diabetes mellitus without mention of complication, type II or unspecified type, uncontrolledU nspecified essential hypertensionP ain in limbUnspecifi ed vitamin D deficiencyMix ed hyperlipidemi aLeukocytosis , unspecifiedNo nspecific abnormal results of other specified function studyScreenin g for malignant neoplasms of the prostate 1 No Information [facility], [address], [place], [place], [address] , [place] tel: [phone] [facility] No Information 1 No Information OFFICE OUTPT EST 25 MIN [facility], [address], [place], [place], [address] , [place] tel: [phone] [facility] diabetes (chief complaint)h ypertension (chief complaint)r ight leg pain (chief complaint) Unspecified essential hypertensionD iabetes mellitus without mention of complication, type II or unspecified type, uncontrolledU nspecified vitamin D deficiencyOth er vitamin b12 deficiency anemiaDiabete s mellitus without mention of complication, type II or unspecified type, uncontrolledU nspecified essential hypertensionP ain in limbOther vitamin b12 deficiency anemiaUnspeci fied vitamin D deficiency 1 No Information OFFICE/OUTPA TIENT VISIT, EST [facility], [address], [place], [place], [address] , [place] tel: [phone] [facility] DM/HTN (chief complaint) Diabetes mellitus without mention of complication, type II or unspecified type, not stated as uncontrolledU nspecified essential hypertension 0 No Information [facility], [address], [place], [place], [address] , [place] tel: [phone] Historic Immunization Location No Information 9 No Information OFFICE O/P EST 5 MIN [facility], [address], [place], [place], [address] , [place] tel: [phone] [facility] Other vitamin b12 deficiency anemiaDiabete s mellitus without mention of complication, type II or unspecified type, not stated as uncontrolled 9 No Information OFFICE/OUTPA TIENT VISIT, EST [facility], [address], [place], [place], [address] , [place] tel: [phone] [facility] Diabetes mellitus without mention of complication, type II or unspecified type, not stated as uncontrolledU nspecified vitamin D deficiencyUns pecified essential hypertension 9 No Information OFFICE/OUTPA TIENT VISIT, EST [facility], [address], [place], [place], [address] , [place] tel: [phone] [facility] HYPERTENSION NOSDMII WO CMP NT ST UNCNTRVITAMIN D DEFICIENCY NOS 9 No Information OFFICE/OUTPA TIENT VISIT, EST [facility], [address], [place], [place], [address] , [place] tel: [phone] [facility] HPT C ACUTE WO HPAT COMADMII WO CMP NT ST UNCNTRVITAMIN D DEFICIENCY NOSHYPERTENSI ON NOS 8 No Information OFFICE/OUTPA TIENT VISIT, EST [facility], [address], [place], [place], [address] , [place] tel: [phone] [facility] DMII WO CMP NT ST UNCNTRVITAMIN D DEFICIENCY NOSHERPES ZOSTER NOS 8 No Information OFFICE CONSULT, 15 MIN, 3 CORONA COMPS: PROB FOCUS HX; PROB FOCUS EXAM; STRTFWD [facility], [address], [place], [place], [address] , [place] tel: [phone] [facility] COUNSELING NOS 8 No Information OFFICE CONSULT, 15 MIN, 3 CORONA COMPS: PROB FOCUS HX; PROB FOCUS EXAM; STRTFWD [facility], [address], [place], [place], [address] , [place] tel: [phone] [facility] COUNSELING NOS 8 7 No Information OFFICE O/P EST 5 MIN [facility], [address], [place], [place], [address] , [place] tel: [phone] [facility] DMII WO CMP NT ST UNCNTRVITAMIN D DEFICIENCY NOS 7 No Information OFFICE OUTPT EST 25 MIN [facility], [address], [place], [place], [address] , [place] tel: [phone] [facility] HPT C WO HPAT COMADMII WO CMP NT ST UNCNTRVITAMIN D DEFICIENCY NOSHYPERTENSI ON NOS 0 7 No Information OFFICE CONSULT, 15 MIN, 3 CORONA COMPS: PROB FOCUS HX; PROB FOCUS EXAM; STRTFWD [facility], [address], [place], [place], [address] , [place] tel: [phone] [facility] COUNSELING NOS 8 7 No Information OFFICE CONSULT, 15 MIN, 3 CORONA COMPS: PROB FOCUS HX; PROB FOCUS EXAM; STRTFWD [facility], [address], [place], [place], [address] , [place] tel: [phone] [facility] COUNSELING NOS 0 7 No Information OFFICE CONSULT, 15 MIN, 3 CORONA COMPS: PROB FOCUS HX; PROB FOCUS EXAM; STRTFWD [facility], [address], [place], [place], [address] , [place] tel: [phone] [facility] COUNSELING NOS 2 7 No Information OFFICE CONSULT, 15 MIN, 3 CORONA COMPS: PROB FOCUS HX; PROB FOCUS EXAM; STRTFWD [facility], [address], [place], [place], [address] , [place] tel: [phone] [facility] COUNSELING NOS 0 6 No Information OFFICE OUTPT EST 10 MIN [facility], [address], [place], [place], [address] , [place] tel: [phone] [facility] HYPERTENSION NOSCHEST PAIN NOSDMII WO CMP NT ST UNCNTR - 6 No Information OFFICE OUTPT EST 10 MIN [facility], [address], [place], [place], [address] , [place] tel: [phone] [facility] [place] HYPERTENSION NOS - 6 No Information OFFICE OUTPT EST 10 MIN [facility], [address], [place], [place], [address] , [place] tel: [phone] [facility] B12 DEFIC ANEMIA NECHYPERTENSI ON NOS 6 No Information OFFICE OUTPT EST 25 MIN [facility], [address], [place], [place], [address] , [place] tel: [phone] [facility] B12 DEFIC ANEMIA NECDMII WO CMP NT ST UNCNTRVITAMIN D DEFICIENCY NOSHYPERTENSI ON NOS - 6 No Information OFFICE CONSULT, 15 MIN, 3 CORONA COMPS: PROB FOCUS HX; PROB FOCUS EXAM; STRTFWD [facility], [address], [place], [place], [address] , [place] tel: [phone] [facility] COUNSELING NOS 6 No Information OFFICE OUTPT EST 10 MIN [facility], [address], [place], [place], [address] , [place] tel: [phone] [facility] HPT C ACUTE WO HPAT COMAVITAMIN D DEFICIENCY NOS 2 6 No Information [facility], [address], [place], [place], [address] , [place] tel: [phone] [facility] DMII WO CMP NT ST UNCNTRLABORAT ORY EXAMINATION - 6 No Information OFFICE CONSULT, 15 MIN, 3 CORONA COMPS: PROB FOCUS HX; PROB FOCUS EXAM; STRTFWD [facility], [address], [place], [place], [address] , [place] tel: [phone] [facility] ADJUSTMENT REACTION NOS 6 No Information OFFICE OUTPT EST 25 MIN [facility], [address], [place], [place], [address] , tel: [phone] [facility] DMII WO CMP NT ST [id number] DEFIC ANEMIA NECALCOHOL ABUSE-UNSPECH YPERTENSION NOS 2200 6 No Information [facility], [address], [place], [place], [address] , [place] tel: [phone] Care Guidelines 1-190 1 No Information Family History Family Member Type Diagnosis Age At Onset Problem (finding) Family history of hyper tension Problem (finding) Family history of diabe marva mellitus Immunizations Vaccine Date Status Comments flu (split) (3 yrs or older) administered Source: New Immunization Record INFLUENZA VIRUS VACCINE SPLI T VIRUS 3 YEARS + IM administered Source: New Immuniza tion Record PNEUMOCOCCAL POLYSAC VACCINE 23-V 2 YR + SUBQ/IM administered Source: New Immuniza tion Record Payers Payer name Insurance type Covered libertarian ID Authoriza tion(s) D [facility] Dual Complete [facility] CI [id number] D Medicaid - Dental CI [id number] Social History Type Description Quantity Date Captured Comments Sex Male Smoking Status No Information Chief Complaint And Reason For Visit No Information Reason For Referral Reason For Referral No Information Plan Of Treatment Date Type Action Status Goal Urinalysis. Due on 11 due Goal PSA. Due on due Goal AST. Due on due Goal ALT. Due on due Goal Pneumococcal Vaccine. Due on due Goal Lipid Panel. Due on 011 due Goal TSH. Due on due Goal Influenza Vaccine. Due on due Goal ECG. Due on due Goal BMP fasting. Due on 011 due Referral Referred To: [address], [phone] Ordered: Referral: [facility]. Neurology. Follow-up and Treat. ordered Referral Referred To: [facility] Ordered: Referral: [facility]. Hepatology. Evaluate and treat. ordered Referral Referred To: [facility] Ordered: Referral: [facility]. Orthopedics. Evaluate and treat. ordered Referral Referred To: [facility] [address] [place], [phone] Ordered: Referral: [facility]. Neurology. Evaluate and treat. Appointment date/timeframe: 08/21/2011 ordered Referral Referred To: [facility] ultrasound Ordered: Referral: [facility] ultrasound. Radiology. Diagnostic testing. Appointment date/timeframe: 07/03/2011 ordered History Of Present Illness Encounter Date Complaint History Of Prese nt Illness No Information Functional Status Date Functional Assessmen t No Information Instructions Date Instruction Additional Infor mation No Information Assessments Type Assessment Date No Information Patient Care Teams Name Effective Dates (start - stop) Status Members No Information
--- OUTSIDE RECORDS SUMMARY | 2024-09-06 14:37 | XMS_ITS | Encounter Summary ---
Author Organization [facility] Address [address] [facility] [place] [address] Care Team Providers Care Emergency Room Physician Assistant Name Role Phone Darell Haji MD Unavailable Maricruz Ramirez MD Primary Care Provider [facility] Hur[facility] Unavailable [phone] Loc Su MD Unavailable [phone] Maricruz Ramirez MD Unavailable [phone] Zayda Cao Unavailable Palak Ace Unavailable Reason for Visit * Reason Onset Date Comments MEDICATION REFILL 05/05/2024 Encounter Details Date Type Department Care Team (Late st Contact Info) Description 05/05/2024 Refill [facility] - Internal Medicine [facility] [address] Maricruz Ramirez MD [address] [place] [id number] MEDICATION REFILL Social History Tobacco Use Types Packs/Day Years Used Date Smoking Tobacco: Every Day Cigarettes 0.4 45 Smokeless Tobacco: Never Comments:Smokes 0.50-1 ppd, has been smoking approximately [...] Date Recorded Patient Health Questionnaire-2 Score 0 01/02/2024 [facility] - Occupational Stress [...] place to sleep or slept in a chcf (including now)? No 12/20/2023 Sex and Gender Information Value Date Recorded Sex Assigned at Not on file Gender Identity Not on file Sexual Orientation Not on file documented as of this encounter Functional Status Functional Status Response Date of [...] person have difficulty concentrating/remembering/making decisions? Yes 12/20/2023 documented as of this encounter Miscellaneous Notes * Telephone Encounter - Magda Nichols - 05/05/2024 9:29 AM CDT Last appt: 01/02/24 Next appt: 06/11/24 Follow up recommendations: appt made Last refill: 04/16/24 Number of cancel or no shows in the last 12 months: 4 Allergies have been reviewed. Correct pharmacy is populated. Please sign RX and close encounter. documented in this encounter Plan of Treatment Upcoming Encounters Date Type Department Care Team (Late st Contact Info) Description 09/11/2024 9:00 AM SAND CARRIER Office Visit [facility] - Endocrinology [address] [place] [address], [facility] [address] [place] [phone] Jones Walter [employer]ATION SUPERVISOR-MARKETING COMMUNICATIONS MANAGER [address] [place] [address], [address] [place] [phone] 09/19/2024 9:30 AM SAND CARRIER Office Visit [facility] - Internal Medicine [address] [place] [address] [address] [place] [phone] Elma Gonzalez, SCHOOL TRANSPORTATION SUPERVISOR-MARKETING COMMUNICATIONS MANAGER [address] [place] [phone] 10/20/2024 1:00 PM CDT Office Visit [facility] - Internal Medicine [address] [place] [address] [address] [place] [address] [place] [address] [place] [address] [address] [place] [address] 01/14/2025 9:30 AM CDT Office Visit [facility] [address] [place] [address] [address] [place], [place] [id number] Darell Haji MD [address] [place] [address] [address] [place] [address] documented as of this encounter Goals Goal Patient Goal Type Associated Problems Recent Progress Patient-Stated? Author Medication Management General On track( 022 11:53 AM CDT) No Myesha Spencer, RN Note: Expected end date: ongoing Interventions: Take all medications as prescribed Let your doctor know right away about any changes in your medications Make sure to request a refill of your medication at least one week prior to your last dose Safety General On track( 10:39 AM SAND CARRIER) No Jenny Gutierrez, RN Note: Expected end date: ongoing Interventions: Your nurse will assess your risk for falls/injury each visit Use appropriate and safe transfer methods Use some light at night in your room Keep walking paths clutter free and clear Mobility General No change(2020 12:55 PM CDT) No Roseanne Mcadams, VALERIA Note: Expected end date: 07/29/2021 The goal is to maintain or improve your mobility at the optimum level for you. Interventions: documented as of this encounter Visit Diagnoses Diagnosis Chronic pain syndrome documented in this encounter Care Teams Emergency Room Physician Assistant Relationship Specialty Start Date End Date Maricruz Ramirez MD [address] [place] [address] [address] [place] [address] PCP - General Internal Medicine 09/07/20 Maricruz Ramirez MD [address] [facility] [address] [place] [address] [facility] 04/29/24 Darell Haji MD [address] [facility] [address] [place] [address] Cardiology 04/17/19 Susan Hurley, SCHOOL TRANSPORTATION SUPERVISOR-MARKETING COMMUNICATIONS MANAGER [address] [facility] [address] [place] [address] Cardiology 09/26/21 Loc Su MD [address] [facility] [address] [place] [address] Surgeon Cardiothoracic Surgery 12/18/23 Zayda Cao Care Coordination Specialist Care Management 06/03/24 07/18/24 Palak Ace Care Coordination Specialist Care Management 09/01/24 documented as of this encounter
--- OUTSIDE RECORDS SUMMARY | 2024-09-06 14:37 | XMS_ITS | Clinical Summary ---
Author Organization [facility] Address [address] [place] [address] Care Team Providers Care Satellite Dish Installer Name Role Phone Darell Haji MD Unavailable Maricruz Ramirez MD Primary Care Provider Susan Hurley APRN-[facility] Unavailable [phone] Loc Su MD Unavailable [phone] Maricruz Ramirez MD Unavailable [phone] Palak Ace Unavailable [phone] Source Comments [facility],non-owned Affiliates and Associated Physician Practices is amultiple site organization consisting of ambulatory clinics and hospital sitesin [place], [place], [place] and [place]. This disclosure is being madepursuant to the Care Everywhere program and may not contain all information available regarding this patient. Last updated 18.[facility] Allergies Active Allergy Reactions Criticality Noted Date [...] Active vitamin D, ergocalciferol, (DRISDOL) 1.25 MG (40340 UT) capsule Take 1 (one) capsule by [...] hyperglycemia, with long-term current use of insulin ([facility]) Take 1 (one) tablet by mouth at bedtime 90 tablet 3 4 Active insulin lispro (HumaLOG;ADMelo g) 100 UNIT/ML penIndications: Type 2 diabetes mellitus with hyperglycemia, with long-term current use of insulin ([facility]) Inject 5 (five) Units subcutaneously 3 [...] hyperglycemia, with long-term current use of insulin ([facility]) Inject 10 (ten) Units subcutaneously at [...] MISCIndications :Diabetes mellitus type 2, insulin dependent (HCC) Use 1 Each every 14 days 4 [...] 05/31/2021 Overview (10/24/2021): [facility] (peripheral vascular disease) 10/12/2020 Overview (10/12/2020): Maricruz Ramirez MD 09/07/20 Chronic hepatitis C without hepatic coma 021 Overview (10/12/2020): Yojana Lyon, SENIOR ANALYTICAL CHEMIST-ONLINE ACTIVIST 03/05/20 Ectatic aorta 10/12/2020 Overview (10/12/2020): Chest [...] (10/16/2022): Added automatically from request for surgery [id number] Upper GI bleed 06/06/2022 11/07/2023 Dehydration 05/22/2022 [...] Dehydration 11/03/2017 11/17/2017 Hematemesis with nausea 11/03/2017 02/0 03/2021 Overview (06/30/2020): Added automatically from request for surgery [id number] Type II or unspecified type diabetes mellitus with unspecified complication, uncontrolled 04/21/2014 09/07/2020 Essential hypertension, benign 03/27/2011 09/07/2020 Encounters Date Type Department Care Team Description 09/01/2024 8:30 AM MEAT AND POULTRY INSPECTOR Office Visit [facility] Heart & Vascular Care [address] [place] [address] [address] [place] [address] Zarina Zamudio APRN-SEGUNDO Primary hypertension (Primary Dx); Paroxysmal atrial fibrillation (HCC); Stage 3b chronic kidney disease (HCC); History of CVA (cerebrovascular accident) 09/01/2024 Patient Outreach [facility] - Care Coordination [address] [place] [address] Palak Ace Outreach Preventive Care 08/23/2024 7:29 AM MEAT AND POULTRY INSPECTOR - 08/23/2024 2:59 PM MEAT AND POULTRY INSPECTOR Emergency ER at [facility] [address] [place] [address] Frankie Calhoun DO RUJessy pain; Hiccups; Hypokalemia Discharge Disposition: Home or Self Care 08/19/2024 Telephone [facility] [address] [place] [address] [address] [place] [address] Darell Haji MD Refill Request 08/19/2024 Nurse Triage [facility] [address] [place] [address] [address] [place] [address] Darell Haji MD Blood Pressure 08/14/2024 Refill [facility] - Endocrinology [address] [place] [address], [address] [place] [phone] Mamadou Jack MD MEDICATION REFILL 08/14/2024 Refill [facility] - Internal Medicine [address] [place] [address] [address] [place] [phone] Maricruz Ramirez MD Refill Request 08/08/2024 Telephone [facility] [address] [place] [phone] Katty Guevara APRN-ONLINE ACTIVIST Follow-up 08/08/2024 Telephone [facility] [address] [place] [address] Katty Guevara, SENIOR ANALYTICAL CHEMIST-[facility] Follow-up 06/11/2024 11:40 AM MEAT AND POULTRY INSPECTOR Office Visit [facility] - Internal Medicine [address] [address] Maricruz Ramirez MD Primary hypertension (Primary Dx); [...] type, unspecified laterality from Last 3 Months Immunizations Name Administration Dates Next Due INFLUENZA VACCINE, TRIV. (AF LURIA, FLUZONE TRIVALENT; 6MO+) (IIV3) 08/18/2015,06/22/2014,07/03/2011,2005 COVID PFIZER 12+YR 30MCG/0.3mL 05/28/2023 COVID PFIZER BIVALENT 12Y+ 30mcg/0.3ML 07/06/2022 Covid Pfizer primary monoval ent 12+ yr 0.3mL Purple cap 11/19/2020,10/23/2020 INFLUENZA VACCINE 05/28/2021,,09/19/2018,2013,07/01/2012 INFLUENZA VACCINE, ADJUVANTE D, QUADR. (FLUAD QUADRIVALENT; 65Y+) (AIIV4) 04/30/2023,07/06/2022 INFLUENZA VACCINE, QUADR. (F LUZONE; FLULAVAL; FLUARIX; AFLURIA QUADRIVALENT; 6MO+), 0.5 ML (IIV4) 06/20/2019 INFLUENZA VACCINE, TRIV. (FL UZONE; FLULAVAL; FLUARIX; AFLURIA TRIVALENT; 6MO+), 0.5 ML (IIV3) 09/19/2018,07/01/2012 PNEUMOCOCCAL PCV20 CONJ VAC IM 03/15/2022 PNEUMOCOCCAL PPSV23 06/22/2014,07/01/2012,2005 Family History Medical History Relation Name Comments Cancer - Breast Maternal Grandmother Heart Failure Maternal Grandmother Diabetes - Type 2 Mother Cancer - Breast Other aunt CAD (Coronary Artery Disease) Neg Hx Relation Name Status Comments Maternal Grandmother Mother Other aunt Social History Tobacco Use Types Packs/Day Years [...] Recorded Patient Health Questionnaire-2 Score 0 09/01/2024 [facility] - Occupational [...] place to sleep or slept in a [place] care facility (including now)? No 12/20/2023 Sex and Gender Information Value Date Recorded Sex Assigned at Not on file Gender Identity Not on file Sexual Orientation Not on file Last Filed Vital Signs Vital Sign Reading Time Taken Comments Blood Pressure 136/86 09/01/2024 8:35 AM MEAT AND POULTRY INSPECTOR Pulse 70 09/01/2024 8:35 AM MEAT AND POULTRY INSPECTOR Temperature 36.2 C (97.1 F) 09/01/2024 8:35 AM MEAT AND POULTRY INSPECTOR Respiratory Rate 16 08/23/2024 2:30 PM MEAT AND POULTRY INSPECTOR Oxygen Saturation 95% 09/01/2024 8:35 AM MEAT AND POULTRY INSPECTOR Inhaled Oxygen Concentration 21% 04/15/2022 1 2:00 AM CDT Weight 83.9 kg (185 lb) 09/01/2024 8:35 AM MEAT AND POULTRY INSPECTOR Height 182.9 cm (6') 06/11/2024 11:28 AM MEAT AND POULTRY INSPECTOR Body Mass Index 25.09 06/11/2024 11:28 AM MEAT AND POULTRY INSPECTOR Plan of Treatment Upcoming Encounters Date Type Department Care Team (Late st Contact Info) Description 09/11/2024 9:00 AM MEAT AND POULTRY INSPECTOR Office Visit [facility] - Endocrinology [address] [place] [address], [address] [place] [address] Jones Walter APRN-SEGUNDO [address] [place] [address], [address] [place] [address] 09/19/2024 9:30 AM MEAT AND POULTRY INSPECTOR Office Visit [facility] - Internal Medicine [address] [place] [address] [address] [place] [address] Elma Gonzalez, SENIOR ANALYTICAL CHEMIST-ONLINE ACTIVIST [address] [facility] [address] [place] [phone] 10/20/2024 1:00 PM CDT Office Visit [facility] Medical [facility] - Internal Medicine [address] [place] [address] [address] [place] [address] Maricruz Ramirez MD [address] [place] [address] [address] [place] [address] 01/14/2025 9:30 AM CDT Office Visit [facility] Heart & Vascular Care [address] [place] [address] [address] [place], [place] [phone] Darell Haji MD [address] [place] [address] [address] [place] [address] Health Maintenance Due Date Last Done Comments COLOGUARD (AGES 45-75) - COLON CA SCREENING 1954 CT COLONOGRAPHY - COLON CA SCREENING 1955 FIT - COLON CA SCREENING 1955 FLEX SIG - COLON CA SCREENING 1954 DTAP/TDAP/TD VACCINES (1 - Tdap) 1973 ZOSTER VACCINE (1 of 2) 2004 HEPATITIS B VACCINE (1 of 3 - Risk 3-dose series) 2014 Respiratory Syncytial Virus (RSV) Vaccine Pt: or over 60 yrs (1 - Risk 60-74 years 1-dose series) 2014 AAA SCREENING 2019 DIABETES-FOOT EXAM WITH MONOFILAMENT 12/19/2022 12/19/2021 COVID-19 VACCINE (2023- season) 2024 05/28/2023, 07/06/2022, 08/04/2021, Additional history exists INFLUENZA VACCINE (#1) 2024 , 07/06/2022, 05/28/2021, Additional history exists DIABETES RETINOPATHY SCREENING 07/07/2024 07/07/2022, 09/17/2020, 11/06/2013, Additional history exists DIABETES - URINE PROTEIN SCREENING 07/30/2024 MEDICARE AWV CALENDAR YEAR 2024 11/07/2023, 11/08/2022, 12/09/2021, Additional history exists DIABETES-HGB A1C 12/02/2024 06/04/2024, , 11/15/2023, Additional history exists DIABETES-SERUM CREATININE 08/23/20252024, 04/11/2024, 12/24/2023, Additional history exists COLON MONITORING 06/26/2026 06/26/2023, , 02/10/2013, Additional history exists Colorectal Cancer Screening 06/26/2026 COLONOSCOPY - COLON CA SCREENING 06/26/2033 06/26/2023, 02/10/2013, 02/10/2013, Additional history exists PNEUMOCOCCAL VACCINE 50+ Completed , 06/22/2014, 07/01/2012, Additional history exists HEPATITIS C SCREENING Completed 11/07/2023 , 11/07/2023, 06/10/2023, Additional history exists DEPRESSION SCREENING Completed 09/01/2024, 08/06/2023, 05/28/2023, Additional history exists HIB VACCINE Aged Out No longer eligi ble based on patient's age to complete this topic HPV VACCINE Aged Out No longer eligi ble based on patient's age to complete this topic MENINGOCOCCAL (Group B) VACCINE Aged Out No longer eligible based on patient's age to complete this topic MENINGOCOCCAL VACCINE Aged Out No gurdeep vasyl eligible based on patient's age to complete this topic Goals Goal Patient Goal Type Associated Problems Recent Progress Patient-Stated? Author Medication Management General On track( 11:53 AM CDT) No Myesha Spencer, RN Note: Expected end date: ongoing Interventions: Take all medications as prescribed Let your doctor know right away about any changes in your medications Make sure to request a refill of your medication at least one week prior to your last dose Safety General On track( 10:39 AM MEAT AND POULTRY INSPECTOR) No Jenny Gutierrez, RN Note: Expected end date: ongoing Interventions: Your nurse will assess your risk for falls/injury each visit Use appropriate and safe transfer methods Use some light at night in your room Keep walking paths clutter free and clear Mobility General No change(2020 12:55 PM CDT) No Roseanne Mcadams, RN Note: Expected end date: 07/29/2021 The goal is to maintain or improve your mobility at the optimum level for you. Interventions: Medical Devices Implanted Type Area Cuff Folder Device Identifier Shelf Expiration Date Model / Serial / Lot Kit Acc Ams 700 Penl Pros Implanted:Qty: 1 on 07/08/2020 by Greg He MD at [facility] Penis [employer] 05/03/2025 [id number] / / [id number] Description:CB Accessory Kit #[id number] $834.20; SKW Deep Scrotal Retraction System # [id number] $408.37; AMS Conceal Pacheco # [id number] $2,551.10; AMS 700 CX MS Pump IZ # [id number] $9,995.85 = $13,789.52 Ams 700 Cx Ms Pump Implanted:Qty: 1 on 07/08/2020 by Greg He MD at [facility] Penis 05/24/2022 [id number] / / [id number] Description:CB Ams Control Pacheco Implanted:Qty: 1 on 07/08/2020 by Greg He MD at [facility] Penis 06/04/2022 [id number] / / [id number] [address] Cm (Rear Tip Operating Room Aide) Implanted:Qty: 1 on 07/08/2020 by Greg He MD at [facility] Penis 04/19/2025 [id number] / / [id number] Description:CB Procedures Procedure Name Priority Date/Time Associated Diagnosis Comments CT ABDOMEN PELVIS W CONTRAST STAT 08/23/2024 8:55 AM MEAT AND POULTRY INSPECTOR RUQ pain TROPONIN-I HIGH SENSITIVE REFLEX 1HOUR Timed 08/23/2024 8:08 AM MEAT AND POULTRY INSPECTOR XR CHEST 1VW STAT 08/23/2024 6:39 AM MEAT AND POULTRY INSPECTOR Other chest pain PT-INR STAT 08/23/2024 6:30 AM MEAT AND POULTRY INSPECTOR COMPREHENSIVE METABOLIC PANEL STAT 08/23/2024 6:30 AM MEAT AND POULTRY INSPECTOR CBC W AUTO DIFFERENTIAL STAT 08/23/2024 6:30 AM MEAT AND POULTRY INSPECTOR TROPONIN-I HIGH SENSITIVE BASELINE + 1HR STAT 08/23/2024 6:30 AM MEAT AND POULTRY INSPECTOR EKG 12-LEAD STAT 08/23/2024 6:08 AM MEAT AND POULTRY INSPECTOR Other chest pain HEMOGLOBIN A1C - POINT OF CARE (AMB) Routine 06/04/2024 9:04 AM MEAT AND POULTRY INSPECTOR Diabetes mellitus type 2, insulin dependent (HCC) COLONOSCOPY 06/26/2023 HEPATITIS C RNA QUANTITATIVE Routine 02/25/2020 9:09 AM CDT Chronic hepatitis C without hepatic coma (HCC) from Last 3 Months or Most Recently Relevant to Health Maintenance Results * CT Abdomen Pelvis W Contrast (08/23/2024 8:55 AM MEAT AND POULTRY INSPECTOR) Anatomical Region Laterality Modality Abdomen, Pelvis Computed Tomogra phy 08/23/2024 9:32 AM MEAT AND POULTRY INSPECTOR Impressions 08/23/2024 9:39 AM MEAT AND POULTRY INSPECTOR IMPRESSION: 1. Mildly increased gas and fluid in the small bowel and proximal colon suggesting enterocolitis. No obstruction or significant ileus. 2. Other chronic and incidental findings as described. > Interpreting Provider: Stephanie Hall MD on 08/23/2024 9:39 AM Narrative 08/23/2024 9:39 AM MEAT AND POULTRY INSPECTOR PROCEDURE: CT ABDOMEN PELVIS W CONTRAST DATE/TIME [...] HIGH SENSITIVE REFLEX 1HOUR (08/23/2024 8:08 AM MEAT AND POULTRY INSPECTOR) Troponin I High Sensitive 22 <=35 ng/L 08/23/2024 8:48 AM MEAT AND POULTRY INSPECTOR [facility] Delta Troponin I HS 08/23/2024 8:48 AM MEAT AND POULTRY INSPECTOR [facility] Comment:Delta value intentio melissa not calculated. Baseline to 1 hour specimen collection interval exceeded. Blood BLOOD SPECIMEN / Unknown Venipuncture / Unknown 08/23/2024 8:08 AM MEAT AND POULTRY INSPECTOR 08/23/2024 8:15 AM MEAT AND POULTRY INSPECTOR Frankie Calhoun DO LAB - CHEMISTRY JAYME BRUNER [facility] [address] [place] [address] * XR Chest 1Vw (08/23/2024 6:39 AM MEAT AND POULTRY INSPECTOR) Anatomical Region Laterality Modality Chest Radiographic Mine ging 08/23/2024 7:16 AM MEAT AND POULTRY INSPECTOR Impressions 08/23/2024 7:16 AM MEAT AND POULTRY INSPECTOR IMPRESSION: Unremarkable > Interpreting Provider: Stephanie Hall MD on 08/23/2024 7:16 AM Narrative 08/23/2024 7:16 AM MEAT AND POULTRY INSPECTOR PROCEDURE: XR CHEST 1VW DATE/TIME OF EXAM: [...] SENSITIVE BASELINE + 1HR (08/23/2024 6:30 AM MEAT AND POULTRY INSPECTOR) [facility] Troponin I High Sensitive 21 <=35 ng/L 08/23/2024 6:57 AM MEAT AND POULTRY INSPECTOR [facility] Blood BLOOD SPECIMEN / Unknown Venipuncture / Unknown 08/23/2024 6:30 AM MEAT AND POULTRY INSPECTOR 08/23/2024 6:35 AM MEAT AND POULTRY INSPECTOR Frankie Calhoun DO LAB - CHEMISTRY ORDE RABLES Performing Organization Address [facility] Co de Phone Number [facility] [address] [place] [phone] * PT-INR (08/23/2024 6:30 AM MEAT AND POULTRY INSPECTOR) [facility] PT 13.4 12.1 - 14.8 sec 08/23/2024 6:[address] [facility] INR 1.0 0.9 - 1.1 08/23/2024 6:[address] [facility] Blood BLOOD SPECIMEN / Unknown Venipuncture / Unknown 08/23/2024 6:30 AM MEAT AND POULTRY INSPECTOR 08/23/2024 6:37 AM MEAT AND POULTRY INSPECTOR Narrative [facility] - 08/23/2024 6:48 AM MEAT AND POULTRY INSPECTOR Conventional Warfarin Anticoagulant Therapy: INR Reference Range: 2.0-3.0 Intensive Warfarin Anticoagulant Therapy: INR Reference Range: 2.5-3.5 Frankie Calhoun DO LAB - COAGULATION OR DERABLES Performing Organization Address [facility] Co de Phone Number [facility] [address] [place] [phone] * (ABNORMAL) CBC W AUTO DIFFERENTIAL (08/23/2024 6:30 AM MEAT AND POULTRY INSPECTOR) [facility] WBC 13.4(H) 4.0 - 10.7 x10E9/L 08/23/2024 6:[address] [facility] RBC Count 4.72 4.30 - 5.80 x10E12/L 08/23/2024 6:[address] [facility] Hemoglobin 14.0 13.3 - 17.5 g/dL 08/23/2024 6:[address] [facility] Hematocrit 40.3 38.7 - 51.1 % 08/23/2024 6:39 AM MEAT AND POULTRY INSPECTOR [facility] MCV 85.4 80.0 - 98.0 fL 08/23/2024 6:[address] [facility] MCH 29.7 26.7 - 33.6 pg 08/23/2024 6:[address] [facility] MCHC 34.7 31.7 - 36.3 g/dL 08/23/2024 6:[address] [facility] RDW-CV 12.6 11.3 - 14.8 % 08/23/2024 6:[address] [facility] Platelet Count 271 150 - 420 x10E9/L 08/23/2024 6:[address] [facility] MPV 9.5 7.8 - 11.4 fL 08/23/2024 6:[address] [facility] Neutrophil % 81.6(H) 41.0 - 74.0 % 08/23/2024 6:[address] [facility] Lymphocyte % 11.9(L) 17.0 - 47.0 % 08/23/2024 6:[address] [facility] Monocyte % 5.5 3.0 - 11.0 % 08/23/2024 6:[address] [facility] Eosinophil % 0.4 0.0 - 7.0 % 08/23/2024 6:[address] [facility] Basophil % 0.2 0.0 - 1.6 % 08/23/2024 6:[address] [facility] Immature Granulocytes % 0.4 0.0 - 1.0 % 08/23/2024 6:[address] [facility] Neutrophil Absolute 10.89(H) 1.60 - 7.50 x10E9/L 08/23/2024 6:[address] [facility] Lymphocyte Absolute 1.59 1.00 - 4.40 x10E9/L 08/23/2024 6:[address] [facility] Monocyte Absolute 0.74 0.15 - 1.00 x10E9/L 08/23/2024 6:[address] [facility] Eosinophil Absolute 0.06 0.00 - 0.60 x10E9/L 08/23/2024 6:[address] [facility] Basophil Absolute 0.03 0.00 - 0.13 x10E9/L 08/23/2024 6:[address] [facility] Blood BLOOD SPECIMEN / Unknown Venipuncture / Unknown 08/23/2024 6:30 AM MEAT AND POULTRY INSPECTOR 08/23/2024 6:37 AM [facility] Frankie Calhoun DO LAB - HEMATOLOGY ORD ERABLES [facility] [address] [place] [address] * (ABNORMAL) COMPREHENSIVE METABOLIC PANEL (08/23/2024 6:30 AM [facility]) Glucose 237(H) 70 - 99 mg/dL 08/23/2024 6:[address] [facility] Sodium 141 136 - 145 mmol/L 08/23/2024 6:[address] [facility] Potassium 2.8(L) 3.5 - 5.1 mmol/L 08/23/2024 6:[address] [facility] Chloride 96(L) 98 - 107 mmol/L 08/23/2024 6:[address] [facility] CO2 35(H) 22 - 29 mmol/L 08/23/2024 6:[address] [facility] Calcium 9.5 8.4 - 10.4 mg/dL 08/23/2024 6:[address] [facility] Anion Gap 10 6 - 16 mmol/L 08/23/2024 6:[address] [facility] BUN 22 7 - 26 mg/dL 08/23/2024 6:[address] [facility] Creatinine 1.88(H) 0.72 - 1.25 mg/dL 08/23/2024 6:[address] [facility] Alkaline Phosphatase 98 40 - 150 U/L 08/23/2024 6:[address] [facility] ALT 16 0 - 55 U/L 08/23/2024 6:[address] [facility] AST 18 5 - 34 U/L 08/23/2024 6:[address] [facility] Protein Total 8.8(H) 6.4 - 8.3 gm/dL 08/23/2024 6:[address] [facility] Albumin 4.1 3.4 - 5.0 gm/dL 08/23/2024 6:[address] [facility] Bilirubin Total 3.0(H) 0.2 - 1.2 mg/dL 08/23/2024 6:55 AM MEAT AND POULTRY INSPECTOR [facility] eGFR by CKD-EPI 38(L) >=90 mL/min/1.7 3 m2 08/23/2024 6:[address] [facility] Blood BLOOD SPECIMEN / Unknown Venipuncture / Unknown 08/23/2024 6:30 AM MEAT AND POULTRY INSPECTOR 08/23/2024 6:35 AM MEAT AND POULTRY INSPECTOR Frankie Calhoun DO LAB - CHEMISTRY ORDE RABSANTOS Performing Organization Address [facility]/ZIP Co de Phone Number [facility] [address] [place] [address] * EKG 12-LEAD (08/23/2024 6:08 AM MEAT AND POULTRY INSPECTOR) [facility] Ventricular Rate 71 BPM [facility]USE Atrial Rate 71 BPM [facility] P-R Interval 202 ms [facility] QRS Duration ms 94 ms [facility] Q-T Interval ms 450 ms [facility] QTC Calculation (Bezet) 489 ms [facility] Calculated P [place] 68 degrees [facility] Calculated R [place] -67 degrees [facility] Calculated T [place] -38 degrees [facility] Interpretation EKG NORMAL SINUS RHYTHM LEFT ANTERIOR FASCICULAR BLOCK MODERATE VOLTAGE CRITERIA FOR LVH, MAY BE NORMAL VARIANT ( R in aVL , Jean Claude product ) SEPTAL INFARCT (CITED ON OR BEFORE 11-MAY-2021) ST & T WAVE ABNORMALITY, CONSIDER LATERAL ISCHEMIA ABNORMAL ECG WHEN COMPARED WITH ECG OF 10-DEC-2023 14:53, INVERTED T WAVES HAVE REPLACED NONSPECIFIC T WAVE ABNORMALITY IN INFERIOR LEADS T WAVE INVERSION NOW EVIDENT IN LATERAL LEADS Confirmed by DO FAITH STEPHANIE ([id number]) on 08/23/2024 9:36:12 PM [facility] 08/23/2024 6:08 AM MEAT AND POULTRY INSPECTOR 08/23/2024 9:36 PM MEAT AND POULTRY INSPECTOR Frankie Calhoun DO ECG ORDERABLES Performing Organization Address [facility]/ZIP Co de Phone Number [facility] * (ABNORMAL) HEMOGLOBIN A1C - POINT OF CARE (AMB) (06/04/2024 9:04 AM MEAT AND POULTRY INSPECTOR) [facility] Hemoglobin A1c POCT 8.0 % [facility] Expiration Date [id number] [facility] Lot # [id number] [facility] QC Verified Yes Yes [facility] Blood BLOOD SPECIMEN / Unknown 06/04/2024 9:04 AM MEAT AND POULTRY INSPECTOR Jones HaileyDaniele Walter SENIOR ANALYTICAL CHEMIST-ONLINE ACTIVIST LAB - PO INT OF CARE ORDERABLES [facility] [address] [place], [place] [address] [phone] * COLONOSCOPY (06/26/2023) 06/26/2023 Narrative 06/26/2023 Ordered by an unspecified provider. Scanned Document SCANNING ONLY * HEPATITIS C RNA QUANTITATIVE (02/25/2020 9:09 AM CDT) [facility] Hepatitis C RNA PCR, Interp Not Detected Not Detected 02/26/2020 4:48 PM CDT [facility] Blood BLOOD SPECIMEN / Unknown Lab Venipuncture / Unknown 02/25/2020 9:09 AM CDT 02/25/2020 9:26 AM CDT Narrative [facility] - 02/26/2020 4:48 PM CDT The Hepatitis C viral (HCV) RNA analysis utilized a serum sample, real-time reverse plate and weld inspector PCR, and is reported as Not Detected, [...] the isolation of HCV RNA with reverse plate and weld inspector of genomic HCV RNA followed by real-time PCR in the presence of an unrelated RNA internal control. The internal control ensures that RNA is isolated, and that no general significant inhibitors of the RT-PCR process are present. The analysis was performed using a U.S. FDA approved test methodology (Skycheckin Real Time HCV). Yojana Lyon SENIOR ANALYTICAL CHEMIST-ONLINE ACTIVIST LAB - CHEMIS TRY ORDERABLES [facility] [address] [place] [address], [facility] [phone] from Last 3 Months or Most Recently [...] 2:57 PM 11/02/2023 3:54 PM Care Teams Satellite Dish Installer Relationship Specialty Start Date End Date Maricruz Ramirez MD [address] [address] [place] [address] PCP - General Internal Medicine 09/07/20 Maricruz Ramirez MD [address] [place] [address] PCP - [facility] 04/29/24 Darell Haji MD [address] [place] [address] Cardiology 04/17/19 Susan Hurley, SENIOR ANALYTICAL CHEMIST-ONLINE ACTIVIST [address] [place] [address] Cardiology 09/26/21 Loc Su MD [address] [place] [address] Surgeon Cardiothoracic Surgery 12/18/23 [facility] Coordination Specialist Care Management 09/01/24
[2024-09-06 15:07] LABS: Basophils Absolute Auto 0.1 K/mm3 (0.0-0.1); Basophils Percent Auto 0.7 % (0.2-1.2); Eosinophils Absolute Auto 0.2 K/mm3 (0-0.3); Eosinophils Percent Auto 2.4 % (0-4.4); Hematocrit 34.4 % (42.0-52.0); Hemoglobin 11.9 g/dL (14.0-18.0); Immature Granulocyte Absolute 0.03 K/mm3 (0.00-0.031); Immature Granulocyte Percent A 0.4 % (0-0.5); Lymphocytes Absolute Auto 1.84 K/mm3 (0.9-3.2); Lymphocytes Percent Auto 24.2 % (18.3-44.2); Mean Corpuscular HGB Conc 34.6 g/dl (32-36); Mean Corpuscular Hemoglobin 30.4 pg (26-34); Mean Corpuscular Volume 87.8 fl (80-100); Mean Platelet Volume 9.9 fl (7.4-10.4); Monocytes Absolute Auto 0.5 K/mm3 (0.1-0.6); Monocytes Percent Auto 6.7 % (2.6-8.5); Neutrophils Percent Auto 65.6 % (45.5-73.1); Platelet Count Result 198 k/mm3 (150-375); Red Blood Count 3.92 M/mm3 (4.6-6.20); Red Cell Distribution Width 12.9 % (11.5-14.5); White Blood Count 7.6 K/mm3 (4.5-10.0)
[2024-09-06 15:18] LABS: Prothrombin Time 13.6 Seconds (11.1-14.7)
[2024-09-06 15:19] LABS: Partial Thromboplastin Time 28.8 Seconds (22.3-36.8)
[2024-09-06 15:21] LABS: Lactic Acid Reflex 1.9 mmol/L (0.7-2.0)
[2024-09-06 15:22] LABS: Alanine Aminotransferase 18 U/L (6-50); Albumin Level 4.2 g/dL (3.5-5.1); Alkaline Phosphatase 73 U/L (38-126); Anion Gap 8 mmol/L (4-12); Aspartate Amino Transferase 17 U/L (17-59); Bilirubin,Total 1.6 mg/dL (0.2-1.3); Blood Urea Nitrogen 21 mg/dL (9-20); Calcium 9.4 mg/dL (8.4-10.2); Carbon Dioxide 35 mmol/L (22-30); Chloride 95 mmol/L (98-107); Creatine Kinase 117 U/L (55-170); Estimated Glomerular Filt Rate 45; Glucose 190 mg/dL (65-110); Lipase 151 U/L (23-300); Magnesium 1.3 mg/dL (1.6-2.3); Sodium 138 mmol/L (137-145)
[2024-09-06 15:32] LABS: Troponin I 0.013 ng/mL (0.000-0.034)
[2024-09-06 15:33] LABS: Glucose Point of Care 160 mg/dl (65-105)
[2024-09-06 15:44] LABS: Influenza A QL RT-PCR Negative (Negative); Influenza B QL RT-PCR Negative (Negative); RSV RNA, RT-PCR Negative (Negative); SARS-CoV-2 RNA PCR Negative (Negative)
[2024-09-06] MEDS: SODIUM CHLORIDE 0.9% IV 1,000 ML 999 ML IV CONT (16:18)
[2024-09-06] MEDS: MAGNESIUM SULF 2 GM/WATER 50ML 2 GM/50 ML BAG IVPB (16:19)
[2024-09-06] MEDS: POTASSIUM CHLORIDE 20 MEQ ER TABLET 40 MEQ PO (16:23)
[2024-09-06 16:26] VITALS: BP 149/92; PULSE 67; RESP 16; O2SAT 100
--- NOTE | 2024-09-06 16:35 | PC.NURSE ---
Pt. refusing IV potassium d/t the burning sensation when it infuses. This RN explained that it can be infused with N.S. and moseley substantially less. Pt. continues to infuse. Pt. is A&Ox2. at bedside and confirms that the pt. is not to receive IV potassium b/c he had a bad experience. Pt. educated that provider ordered a urine sample. Pt. states that he cannot urinate at this time. Bladder scan reveals 433 mL in bladder. This RN explained to pt. and that there is a large amount of urine in his bladder and he should have the sensation to go. Pt. refuses catheter. states I cannot go against his wishes. RATNA Moreno notified of the above information.
[2024-09-06 17:27] LABS: Add Urine Microscopic? YES; Appearance Urine Clear (Clear); Bacteria Urine None Seen /hpf; Bilirubin Urine Negative (Negative); Blood Urine Negative (Negative); Color Urine Yellow (Yellow); Glucose Urine UA 3+ mg/dL (Negative); Ketones Urine Negative (Negative); Leukocyte Esterase Ur Negative LEU/UL (Negative); Nitrate Urine Negative (Negative); Non Pathogenic Casts 0-2; Protein Urine 2+ mg/dL (Negative); RBC Urine 0-2 /hpf (0-2); Specific Grav Ur 1.028 (1.001-1.035); Squamous Epithelial Cell Urine None Seen /hpf (Few); WBC Urine 0-5 /hpf (0-3)
[2024-09-06 17:55] VITALS: BP 164/88; PULSE 60; RESP 16; O2SAT 96
--- NOTE | 2024-09-06 18:38 | PC.NURSE ---
Dr Hathaway at bedside to discuss AMA with pt and . Pt initially refusing to answer questions, even yes/no questions, and only answering questions with his own question. Pt becoming agitated and attempting to answer questions for him. verbalized understanding that pt may decline or has risk of with leaving AMA. Pt states he wants to leave here and go to [facility] . Pt eventfully did verbalize that he is aware and willing to take the risk of to leave this hospital AMA. VALERIA Zamora notified.
== END 2024-09-06 19:02 | disposition left against medical advice (07) ==
PROVIDERS: Emergency Provider Physician Assistant
DX: R41.82 Altered mental status, unspecified (principal); E83.42 Hypomagnesemia; E87.6 Hypokalemia; N40.1 Benign prostatic hyperplasia with lower urinary tract symptoms; R33.8 Other retention of urine; K74.60 Unspecified cirrhosis of liver; B19.20 Unspecified viral hepatitis C without hepatic coma; E11.22 Type 2 diabetes mellitus with diabetic chronic kidney disease; I12.9 Hypertensive chronic kidney disease with stage 1 through stage 4 chronic kidney disease, or unspecified chronic kidney disease; N18.9 Chronic kidney disease, unspecified; E78.5 Hyperlipidemia, unspecified; E11.42 Type 2 diabetes mellitus with diabetic polyneuropathy; N40.0 Benign prostatic hyperplasia without lower urinary tract symptoms; K21.00 Gastro-esophageal reflux disease with esophagitis, without bleeding; M19.90 Unspecified osteoarthritis, unspecified site; F17.210 Nicotine dependence, cigarettes, uncomplicated; Z90.49 Acquired absence of other specified parts of digestive tract; Z79.4 Long term (current) use of insulin; Z79.899 Other long term (current) drug therapy; I44.0 Atrioventricular block, first degree; I44.4 Left anterior fascicular block; R94.31 Abnormal electrocardiogram [ECG] [EKG]
CPT/HCPCS: 36415; 70450; 70496; 70498; 71045; 80053; 81001; 82550; 82948; 83605; 83690; 83735; 84484; 85025; 85610; 85730; 87637; 93005; 96365; 96366; 96367; 99284; A9270; J3475; J7030; Q9967